=== PATIENT | male | born 1960 | race Two or more races ===

== ENCOUNTER 2020-07-22 13:31 | Emergency (ER) | payer MEDICAID, SELFPAY ==
[2020-07-22 13:49] VITALS: BP 150/80; BP 155/82; PULSE 61; PULSE 67; RESP 18; TEMP 36.7; O2SAT 96; O2SAT 98; BMI 32.1
--- NOTE | 2020-07-22 14:02 | XR_ITS ---
EXAMINATION: XR CHEST CLINICAL INFORMATION: Left chest pain, heartburn COMPARISON: Chest radiographs 03/02/2020, 01/12/2020, 01/18/2018 TECHNIQUE: Portable upright AP view of the chest was obtained. FINDINGS: Patient is slightly rotated to left. There are low lung volumes. There is no airspace consolidation or groundglass opacity. No pneumothorax or pleural reaction. Subpleural linear scarring left lateral base is similar to prior exams dating back to 2018. The heart is normal in size. The visualized hilar and mediastinal contours and bony structures are unremarkable. IMPRESSION: No acute intrathoracic disease.
--- NOTE | 2020-07-22 14:02 | ECG_ITS ---
Test Reason : CHEST PAIN Blood Pressure : / mmHG Vent. Rate : 054 BPM Atrial Rate : 054 BPM P-R Int : 150 ms QRS Dur : 088 ms QT Int : 424 ms P-R-T Axes : 017 -12 048 degrees QTc Int : 402 ms Sinus bradycardia Nonspecific T wave abnormality Abnormal ECG When compared with ECG of 02-MAR-2020 11:12, No significant change was found Referred By: Devaughn Khan Electronically Signed By:TRIPP BROOKE MD
--- NOTE | 2020-07-22 14:34 | ED_ITS ---
HPI - General Adult General Chief complaint: General Medical Stated complaint: LEFT ABD PAIN Time Seen by Provider: 07/22/20 14:02 Source: patient Mode of arrival: EMS History of Present Illness HPI narrative: Patient presents to the ED for acid burning sensation in epigastric area radiating to left chest. Patient states having these symptoms for the past 2 days. Patient states no fever, chills, dysuria, hematuria, nausea, or vomiting. Patient denies any shortness of breath, swelling of lower extremities, calf pain, chest pain on inspiration, headache, or dizziness. patient denies any recent long travel, recent surgery, active cancer, or estrogen hormonal use. Patient admits to pmh of GERD Onset (ago): day(s) (2 days) Associated symptoms: denies other symptoms Related Data Previous Rx's Medication Instructions Recorded aspirin 81 mg tablet,delayed 81 mg PO DAILY 90 Days #90 tab 07/09/20 release nifedipine 30 mg tablet,extended 30 mg PO DAILY 90 Days #90 tab 07/09/20 release 24 hr famotidine [Pepcid] 20 mg PO BID #20 tab 07/22/20 Allergies Allergy/AdvReac Type Severity Reaction Status Date / Time amlodipine [From [facility]] Allergy Unknown UNKNOWN Verified 07/22/20 13:48 no ibuprofen 2/2 renal Allergy Unknown Unknown Uncoded 07/22/20 13:48 functio Review of Systems Review of Systems: Yes all other systems are reviewed and are negative Constitutional: Constitutional: Reports as per HPI and Reports no additional constitutional complaints Eyes: Eyes: Reports as per HPI and Reports no additional eye complaints ENT: Reports system reviewed and no additional complaints, except as documented and Reports as per HPI Cardiovascular: Cardiovascular: Reports as per HPI, Reports no additional cardiovascular complaints, Denies chest pain, Denies chest pain at rest, Denies leg edema, Denies dyspnea, Denies dyspnea on exertion, Denies orthopnea and Denies paroxysmal nocturnal dyspnea Respiratory: Respiratory: Reports as per HPI, Reports no additional respiratory complaints, Denies dyspnea and Denies dyspnea on exertion Gastrointestinal: Gastrointestinal: Denies abdominal pain, Denies change in bowel habits, Denies tenesmus, Denies change in stool character, Denies coffee ground emesis, Denies constipation, Denies excessive flatus, Reports dyspepsia and Reports heartburn Genitourinary: Genitourinary: Reports no additional male genitourinary complaints, Denies dysuria, Denies flank pain, Denies urinary frequency and Denies urinary incontinence Neurologic: Reports system reviewed and no additional complaints, except as documented and Reports as per HPI Psychiatric: Psychiatric: Reports no additional psychiatric complaints and Reports as per HPI [facility] Past Medical History Medical History (Updated 07/22/20 @ 18:51 by MONIKA Cano) Anemia Aphagia Bronchitis CKD (chronic kidney disease) Constipation Diabetes GERD (gastroesophageal reflux disease) Hearing loss Hemiplegia HTN (hypertension) Hyperlipidemia Hyperlipidemia Hypertensive chronic kidney disease with stage 1 through stage 4 chronic kidney disease, or unspecified chronic kidney disease Preglaucoma Unsteady gait Vascular device, implant, or graft complication Vitamin D deficiency Vitamin D deficiency Social History Social History Alcohol intake: never Smoked in Last 30 Days: No Use of substances other than those prescribed or required for medical reasons: No Advance Directives: No Advance Directives Information Provided: Yes Physical Exam Vital Signs: Vital Signs: Vital Signs Temp Pulse Resp BP Pulse Ox 07/22/20 17:45 98.1 F 59 18 123/66 07/22/20 16:30 99.0 F 57 18 128/72 96 07/22/20 15:41 99.0 F 57 18 118/66 95 07/22/20 13:49 98.1 F 61 18 155/82 H 96 Body Mass Index 32.1 Const: General: cooperative, healthy appearing, comfortable, no acute distress and well developed Orientation/consciousness: oriented to person, oriented to place, oriented to time and patient oriented x3 HENMT: Head: Yes normal to inspection and Yes No palpable skull fracture present Eyes: General: appearance normal, both eyes and all related structures Neck: Neck: Yes normal visual inspection, Yes full ROM, Yes no lymphadenopathy , No positive Brudzinski's sign and No positive Kernig's sign Chest: Chest palpation & inspection: normal inspection of the chest and normal palpation of entire chest wall Resp: Effort & Inspection: normal respiratory effort and able to speak in complete sentences Cardio: Jugular venous distension: no JVD Heart sounds: S1 normal heart sound present and S2 normal heart sound present GI: Inspection: Yes normal to inspection and No abdominal wall ecchymosis Palpation (GI): not firm, nontender, no guarding, not rigid, no hernias, no masses and no pulsatile masses Percussion: Yes normal to percussion Auscultation: normal bowel sounds : General: No CVA tenderness and Yes no CVA tenderness Back/Spine/Pelvis: Back: no CVA tenderness, No CVA tenderness and No back tenderness Skin: General skin exam: no rashes or lesions noted Neuro: General: oriented to person, oriented to place, oriented to time, patient oriented x3, gait normal and CN's II-XI intact bilaterally Cranial nerves: Yes CN's II-XII intact bilaterally Extrem: General: Yes normal to inspection Psych: Appearance: grossly normal and well kempt Course Course Course Narrative: Due to patient stating heartburn/acid burn sensation in epigastric area radiating to chest. Patient will have EKG and cardiac evaluation. Patient also be given GI cocktail. Reevaluation(s) Reevaluation #1: Patient's burning sensation abdomen resolved after receiving GI cocktail. Patient's EKG at baseline. Patient has both troponin did not incr eased by 50%. Patient is safe for discharge. Diagnosis is GERD. Chest x-ray is normal. Patient denies any chest pain or shortness of breath presently. History and physical exam does not indicate PE. Patient does not have risk factors for PE. Patient abdomen re-examined and is non-tender and benign. Patient passed PO Challenge. Lipase 89 with non-tender abdomen makes pancreatitis unlikely Time: 18:40 Medical Decision Making MDM Narrative Medical decision making narrative: GERD as cause of abdominal pain. Patient presently not having pneumonia or myocardial infarction. Lab Data Result diagrams: 07/22/20 14:45 07/22/20 14:45 Labs: Lab Results 07/22/20 07/22/20 07/22/20 Range/Units 14:45 14:45 14:45 WBC 9.9 (4.8-10.8) X10*3/uL RBC 4.04 L (4.60-5.80) X10*6/uL Hgb 12.0 L (14.0-18.0) g/dl Hct 36.1 L (42-52) % MCV 89.4 (80-98) fL MCH 29.7 (27.0-33.0) pg MCHC 33.2 (31.0-36.0) g/dl RDW 11.9 (11.0-16.0) % Plt Count 224 (160-400) X10*3/uL MPV 11.0 (9.4-12.4) fL Immature Gran % (Auto) 0.4 (0.0-0.4) % Neut % (Auto) 55.0 (45-73) % Lymph % (Auto) 31.6 (20-40) % [place] % (Auto) 9.0 (2-11) % Eos % (Auto) 3.5 (0-4) % Baso % (Auto) 0.5 (0-2) % Lymph # (Auto) 3.1 (1.2-4.9) X10*3/uL [place] # (Auto) 0.9 (0.1-1.2) X10*3/uL Eos # (Auto) 0.4 (0.0-0.4) X10*3/uL Baso # (Auto) 0.1 (0.0-0.2) X10*3/uL Abs Immat Gran (auto) 0.04 H (0.00-0.03) X10*3/uL Absolute Neuts (auto) 5.5 (2.0-8.3) X10*3/uL Absolute Nucleated RBC 0.000 (0.0-0.012) X10*3/uL Nucleated RBC % (auto) 0.0 (0.0-0.2) /100WBC PT 11.6 (10.8-13.0) SEC INR 1.0 (0.9-1.1) APTT 35.4 (24.1-38.0) SEC Sodium 139 (135-145) mmol/L Potassium 4.9 (3.3-5.1) mmol/l Chloride 107 (96-108) mmol/L Carbon Dioxide 21 L (22-29) mmol/L Anion Gap 16 (12-20) BUN 43 H (9-16) mg/dL Creatinine 2.14 H (0.5-1.4) mg/dL Estim Creat Clear Calc 40.0 Estimated GFR 32 Random Glucose 132 H (60-115) mg/dL Calcium 9.8 (8.4-10.2) mg/dL Total Bilirubin 0.2 (0.0-1.0) mg/dL AST 11 (5-37) U/L ALT 10 (0-40) U/L Alkaline Phosphatase 76 (39-117) U/L Troponin I High Sens (<3.5-35.0) ng/L Total Protein 7.9 (6.5-8.0) g/dL Albumin 4.5 (3.5-5.0) g/dL Lipase 81 H (8-78) U/L 07/22/20 07/22/20 Range/Units 14:45 18:01 WBC (4.8-10.8) X10*3/uL RBC (4.60-5.80) X10*6/uL Hgb (14.0-18.0) g/dl Hct (42-52) % MCV (80-98) fL MCH (27.0-33.0) pg MCHC (31.0-36.0) g/dl RDW (11.0-16.0) % Plt Count (160-400) X10*3/uL MPV (9.4-12.4) fL Immature Gran % (Auto) (0.0-0.4) % Neut % (Auto) (45-73) % Lymph % (Auto) (20-40) % [place] % (Auto) (2-11) % Eos % (Auto) (0-4) % Baso % (Auto) (0-2) % Lymph # (Auto) (1.2-4.9) X10*3/uL [place] # (Auto) (0.1-1.2) X10*3/uL Eos # (Auto) (0.0-0.4) X10*3/uL Baso # (Auto) (0.0-0.2) X10*3/uL Abs Immat Gran (auto) (0.00-0.03) X10*3/uL Absolute Neuts (auto) (2.0-8.3) X10*3/uL Absolute Nucleated RBC (0.0-0.012) X10*3/uL Nucleated RBC % (auto) (0.0-0.2) /100WBC PT (10.8-13.0) SEC INR (0.9-1.1) APTT (24.1-38.0) SEC Sodium (135-145) mmol/L Potassium (3.3-5.1) mmol/l Chloride (96-108) mmol/L Carbon Dioxide (22-29) mmol/L Anion Gap (12-20) BUN (9-16) mg/dL Creatinine (0.5-1.4) mg/dL Estim Creat Clear Calc Estimated GFR Random Glucose (60-115) mg/dL Calcium (8.4-10.2) mg/dL Total Bilirubin (0.0-1.0) mg/dL AST (5-37) U/L ALT (0-40) U/L Alkaline Phosphatase (39-117) U/L Troponin I High Sens 5.5 6.8 (<3.5-35.0) ng/L Total Protein (6.5-8.0) g/dL Albumin (3.5-5.0) g/dL Lipase (8-78) U/L ECG Data Interpretation: sinus bradycardia, nonspecific T-wave abnormality, ventricular rate 54, TN interval 150 Discharge Plan Discharge Clinical Impression: Chronic GERD Patient Disposition: Home, Self-Care Instructions: Gastroesophageal Reflux Disease (ED) Additional Instructions: Return to the ED for any chest pain, shortness of breath, vomiting, severe abdominal pain, chest pain on inspiration, swelling of lower extremities, calf pain, fever, chills, flank pain, dysuria, or hematuria. Follow-up with your PCP as soon as possible Prescriptions: New famotidine [Pepcid] 20 mg tablet 20 mg PO BID Qty: 20 RF: 0 No Action aspirin [Adult Low Dose Aspirin] 81 mg tablet,delayed release (DR/EC) 81 mg PO DAILY 90 Days Qty: 90 RF: 1 nifedipine 30 mg tablet extended release 24hr 30 mg PO DAILY 90 Days Qty: 90 RF: 1 Interventions: ED Discharge Assessment Last Done: 07/22/20 19:50 Print Language: Paraguayan
[2020-07-22 14:50] LABS: MANUAL DIFF FLAG NO
[2020-07-22] MEDS: Famotidine/PF 20 MG/2 ML VIAL IVPUSH (14:50)
[2020-07-22] MEDS: Magnesium Hydrox/Alum Hydrox 30 ML ORAL.SUSP PO ×2 (14:50)
[2020-07-22] MEDS: Lidocaine HCl Viscous 2 % 15 ML SOLUTION MUCOUS MEM (14:50)
[2020-07-22 14:56] LABS: Basophils Absolute Auto 0.1 X10*3/uL (0.0-0.2); Basophils Percent Auto 0.5 % (0-2); Eosinophils Absolute Auto 0.4 X10*3/uL (0.0-0.4); Eosinophils Percent Auto 3.5 % (0-4); Hematocrit 36.1 % (42-52); Imm Gran Abs Auto 0.04 X10*3/uL (0.00-0.03); Imm Gran Pct Auto 0.4 % (0.0-0.4); Lymphocytes Absolute Auto 3.1 X10*3/uL (1.2-4.9); Lymphocytes Percent Auto 31.6 % (20-40); Mean Corpuscular HGB Conc 33.2 g/dl (31.0-36.0); Mean Corpuscular Hemoglobin 29.7 pg (27.0-33.0); Mean Corpuscular Volume 89.4 fL (80-98); Monocytes Absolute Auto 0.9 X10*3/uL (0.1-1.2); Neutrophils Absolute Auto 5.5 X10*3/uL (2.0-8.3); Platelet Count 224 X10*3/uL (160-400); Red Blood Count 4.04 X10*6/uL (4.60-5.80); Red Cell Distribution Width 11.9 % (11.0-16.0); White Blood Count 9.9 X10*3/uL (4.8-10.8)
[2020-07-22 14:57] LABS: Prothrombin Time 11.6 SEC (10.8-13.0)
[2020-07-22 15:00] LABS: Partial Thromboplastin Time 35.4 SEC (24.1-38.0)
--- NOTE | 2020-07-22 15:04 | PC.NURSE ---
iv inserted, labs drawn, pt medicated per orde, pt sinus nilsa on child care development specialist, vss, pt ekg performed, will continue to monitor.
[2020-07-22 15:27] LABS: Alanine Aminotransferase 10 U/L (0-40); Albumin Level 4.5 g/dL (3.5-5.0); Alkaline Phosphatase 76 U/L (39-117); Anion Gap 16 (12-20); Aspartate Amino Transferase 11 U/L (5-37); Bilirubin Total 0.2 mg/dL (0.0-1.0); Blood Urea Nitrogen 43 mg/dL (9-16); Calcium 9.8 mg/dL (8.4-10.2); Carbon Dioxide 21 mmol/L (22-29); Chloride 107 mmol/L (96-108); Estimated Glomerular Filt Rate 32; Glucose Random 132 mg/dL (60-115); Potassium 4.9 mmol/l (3.3-5.1); Sodium 139 mmol/L (135-145); Total Protein 7.9 g/dL (6.5-8.0)
[2020-07-22 15:30] LABS: Troponin-I High Sensitivity 5.5 ng/L (<3.5-35.0)
[2020-07-22 15:41] VITALS: BP 118/66; PULSE 57; RESP 18; TEMP 37.2; O2SAT 95
--- NOTE | 2020-07-22 15:44 | PC.NURSE ---
patient alert to baseline, vss, registered nurse cardiac sinus nilsa 50s, patient currently watching tv, pt states he still has pain but its better-just a little pain- 01/11, will continue to monitor.
[2020-07-22 16:30] VITALS: BP 128/72; PULSE 57; RESP 18; TEMP 37.2; O2SAT 96
--- NOTE | 2020-07-22 16:30 | PC.NURSE ---
patient ombudsperson head of service [facility] patient is at is named jhonny her contact number is [phone]
[2020-07-22 17:45] VITALS: BP 123/66; PULSE 59; RESP 18; TEMP 36.7
--- NOTE | 2020-07-22 17:46 | PC.NURSE ---
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
[2020-07-22 18:44] LABS: Troponin-I High Sensitivity 6.8 ng/L (<3.5-35.0)
--- NOTE | 2020-07-22 19:25 | PC.NURSE ---
Spoke with Zamzam [phone], for update.
[2020-07-22 19:44] LABS: Lipase 81 U/L (8-78)
== END 2020-07-22 21:07 | disposition home or self-care (01) ==
PROVIDERS: Physician Assistant; Emergency Provider Emergency Medicine
DX: K21.9 Gastro-esophageal reflux disease without esophagitis (principal); R07.89 Other chest pain; I10 Essential (primary) hypertension; Z79.899 Other long term (current) drug therapy
CPT/HCPCS: 36415; 71045; 80053; 83690; 84484; 85025; 85610; 85730; 93005; 96374; 99284

== ENCOUNTER 2020-07-28 12:26 | Emergency (ER) | payer MEDICAID, SELFPAY ==
--- NOTE | 2020-07-28 | ECG_ITS ---
Test Reason : CHEST PAIN Blood Pressure : / mmHG Vent. Rate : 060 BPM Atrial Rate : 060 BPM P-R Int : 150 ms QRS Dur : 086 ms QT Int : 406 ms P-R-T Axes : 051 -17 035 degrees QTc Int : 406 ms Normal sinus rhythm Normal ECG No previous ECGs available Referred By: Generic ED Physician Electronically Signed By:TRIPP BROOKE MD
[2020-07-28 12:37] VITALS: BP 168/80; PULSE 70; RESP 16; TEMP 36.6; O2SAT 99; BMI 33.0
--- NOTE | 2020-07-28 12:42 | ED.CHESTPAIN ---
HPI - Chest Pain General Chief Complaint: Chest Pain Stated Complaint: CP X'S 2 HOURS FROM [facility] HOME Time Seen by Provider: 07/28/20 13:58 Related Data Home Medications Medication Instructions Recorded Confirmed acetaminophen 325 mg tablet 325 mg PO Q6H PRN tab 07/24/20 ascorbic acid (vitamin C) 500 mg mg PO BID cap 07/24/20 capsule dulaglutide 1.5 mg/0.5 mL 1.5 mg SUBCUT QWEEK 07/24/20 subcutaneous pen injector empagliflozin 10 mg tablet 10 mg PO DAILY 07/24/20 ergocalciferol (vitamin D2) 1,250 1,250 mcg PO .monthly cap 07/24/20 mcg (50,000 unit) capsule ferrous sulfate 325 mg (65 mg 325 mg PO DAILY 07/24/20 iron) tablet hydralazine 50 mg tablet 50 mg PO TID 07/24/20 hydrocortisone valerate 0.2 % 1 applic TOPICAL BID PRN 07/24/20 topical cream insulin lispro 100 unit/mL 2 unit SUBCUT .per sliding scale 07/24/20 subcutaneous pen ml lactulose 10 gram/15 mL oral 10 g PO DAILY 07/24/20 solution lancets 28 gauge #100 ea 07/24/20 lorazepam 0.5 mg tablet 0.5 mg PO BID 07/24/20 lorazepam 0.5 mg tablet 0.5 mg PO DAILY PRN 07/24/20 losartan 50 mg tablet 50 mg PO DAILY 07/24/20 magnesium oxide 400 mg (241.3 mg 400 mg PO DAILY PRN 07/24/20 magnesium) tablet meclizine 25 mg tablet 25 mg PO TID PRN 07/24/20 metoprolol succinate 25 mg 25 mg PO DAILY 07/24/20 tablet,extended release 24 hr polyethylene glycol 3350 17 17 g PO DAILY 07/24/20 gram/dose oral powder risperidone 0.5 mg tablet 0.5 mg PO BID 07/24/20 sennosides 8.6 mg tablet 8.6 mg PO BID 07/24/20 simvastatin 40 mg tablet 40 mg PO BEDTIME 07/24/20 tamsulosin 0.4 mg capsule 0.4 mg PO BEDTIME 07/24/20 trazodone 50 mg tablet 50 mg PO DAILY 07/24/20 trolamine salicylate 10 % topical 1 applic TOPICAL TID 07/24/20 cream trolamine salicylate-aloe vera 10 1 applic TOPICAL TID-QID PRN 07/24/20 % topical cream ursodiol 300 mg capsule 300 mg PO BID 07/24/20 Previous Rx's Medication Instructions Recorded aspirin 81 mg tablet,delayed 81 mg PO DAILY 90 Days #90 tab 07/09/20 release nifedipine 30 mg tablet,extended 30 mg PO DAILY 90 Days #90 tab 07/09/20 release 24 hr famotidine 20 mg tablet 20 mg PO BID PRN 90 Days #90 tab 07/24/20 Allergies Allergy/AdvReac Type Severity Reaction Status Date / Time amlodipine [From [facility]] Allergy Severe due to Verified 07/28/20 12:42 poor renal function no ibuprofen 2/2 renal Allergy Severe due to Uncoded 07/28/20 12:42 functio poor renal function ON LICENSE OF [facility] Past Medical History Medical History (Updated 07/27/20 @ 17:32 by FRANCISCO Crawford-C) Anemia Aphagia Bronchitis Chronic kidney disease, stage 3 CKD (chronic kidney disease) Constipation Diabetes GERD (gastroesophageal reflux disease) Hearing loss Hemiplegia HTN (hypertension) Hyperlipidemia Hyperlipidemia Hypertensive chronic kidney disease with stage 1 through stage 4 chronic kidney disease, or unspecified chronic kidney disease Preglaucoma Type 2 diabetes mellitus with chronic kidney disease Unsteady gait Vascular device, implant, or graft complication Vitamin D deficiency Vitamin D deficiency Social History Social History Alcohol intake: never Smoking Status: Never smoker Use of substances other than those prescribed or required for medical reasons: No Advance Directives: No Advance Directives Information Provided: No Physical Exam Vital Signs: Vital Signs: Vital Signs Temp Pulse Resp BP Pulse Ox 07/28/20 12:47 97.8 F 54 20 165/91 H 97 07/28/20 12:37 97.8 F 70 16 168/80 H 99 Body Mass Index 33.0 MDM - Chest Pain Lab Data Result diagrams: 07/28/20 12:57 07/28/20 12:57 Labs: Lab Results 07/28/20 07/28/20 07/28/20 Range/Units 12:57 12:57 12:57 WBC 9.1 (4.8-10.8) X10*3/uL RBC 4.36 L (4.60-5.80) X10*6/uL Hgb 12.8 L (14.0-18.0) g/dl Hct 39.4 L (42-52) % MCV 90.4 (80-98) fL MCH 29.4 (27.0-33.0) pg MCHC 32.5 (31.0-36.0) g/dl RDW 11.6 (11.0-16.0) % Plt Count 236 (160-400) X10*3/uL MPV 10.8 (9.4-12.4) fL Immature Gran % (Auto) 0.4 (0.0-0.4) % Neut % (Auto) 56.4 (45-73) % Lymph % (Auto) 31.2 (20-40) % [place] % (Auto) 8.0 (2-11) % Eos % (Auto) 3.6 (0-4) % Baso % (Auto) 0.4 (0-2) % Lymph # (Auto) 2.8 (1.2-4.9) X10*3/uL [place] # (Auto) 0.7 (0.1-1.2) X10*3/uL Eos # (Auto) 0.3 (0.0-0.4) X10*3/uL Baso # (Auto) 0.0 (0.0-0.2) X10*3/uL Abs Immat Gran (auto) 0.04 H (0.00-0.03) X10*3/uL Absolute Neuts (auto) 5.1 (2.0-8.3) X10*3/uL Absolute Nucleated RBC 0.000 (0.0-0.012) X10*3/uL Nucleated RBC % (auto) 0.0 (0.0-0.2) /100WBC PT 11.0 (10.8-13.0) SEC INR 0.9 (0.9-1.1) APTT 36.0 (24.1-38.0) SEC Sodium 139 (135-145) mmol/L Potassium 5.3 H (3.3-5.1) mmol/l Chloride 105 (96-108) mmol/L Carbon Dioxide 23 (22-29) mmol/L Anion Gap 16 (12-20) BUN 42 H (9-16) mg/dL Creatinine 2.13 H (0.5-1.4) mg/dL Estim Creat Clear Calc 40.8 Estimated GFR 32 Random Glucose 245 H D (60-115) mg/dL Calcium 9.5 (8.4-10.2) mg/dL Total Bilirubin 0.3 (0.0-1.0) mg/dL AST 12 (5-37) U/L ALT 11 (0-40) U/L Alkaline Phosphatase 75 (39-117) U/L Troponin I High Sens (<3.5-35.0) ng/L Total Protein 8.1 H (6.5-8.0) g/dL Albumin 4.6 (3.5-5.0) g/dL Lipase 77 (8-78) U/L // Range/Units 12:57 WBC (4.8-10.8) X10*3/uL RBC (4.60-5.80) X10*6/uL Hgb (14.0-18.0) g/dl Hct (42-52) % MCV (80-98) fL MCH (27.0-33.0) pg MCHC (31.0-36.0) g/dl RDW (11.0-16.0) % Plt Count (160-400) X10*3/uL MPV (9.4-12.4) fL Immature Gran % (Auto) (0.0-0.4) % Neut % (Auto) (45-73) % Lymph % (Auto) (20-40) % [place] % (Auto) (2-11) % Eos % (Auto) (0-4) % Baso % (Auto) (0-2) % Lymph # (Auto) (1.2-4.9) X10*3/uL [place] # (Auto) (0.1-1.2) X10*3/uL Eos # (Auto) (0.0-0.4) X10*3/uL Baso # (Auto) (0.0-0.2) X10*3/uL Abs Immat Gran (auto) (0.00-0.03) X10*3/uL Absolute Neuts (auto) (2.0-8.3) X10*3/uL Absolute Nucleated RBC (0.0-0.012) X10*3/uL Nucleated RBC % (auto) (0.0-0.2) /100WBC PT (10.8-13.0) SEC INR (0.9-1.1) APTT (24.1-38.0) SEC Sodium (135-145) mmol/L Potassium (3.3-5.1) mmol/l Chloride (96-108) mmol/L Carbon Dioxide (22-29) mmol/L Anion Gap (12-20) BUN (9-16) mg/dL Creatinine (0.5-1.4) mg/dL Estim Creat Clear Calc Estimated GFR Random Glucose (60-115) mg/dL Calcium (8.4-10.2) mg/dL Total Bilirubin (0.0-1.0) mg/dL AST (5-37) U/L ALT (0-40) U/L Alkaline Phosphatase (39-117) U/L Troponin I High Sens 6.7 (<3.5-35.0) ng/L Total Protein (6.5-8.0) g/dL Albumin (3.5-5.0) g/dL Lipase (8-78) U/L Discharge Plan Discharge Prescriptions: No Action aspirin [Adult Low Dose Aspirin] 81 mg tablet,delayed release (DR/EC) 81 mg PO DAILY 90 Days Qty: 90 RF: 1 nifedipine 30 mg tablet extended release 24hr 30 mg PO DAILY 90 Days Qty: 90 RF: 1 risperidone [Risperdal] 0.5 mg tablet 0.5 mg PO BID RF: 0 trazodone 50 mg tablet 50 mg PO DAILY RF: 0 lactulose [Enulose] 10 gram/15 mL solution 10 g PO DAILY RF: 0 acetaminophen [Tylenol] 325 mg tablet 325 mg PO Q6H PRN (Reason: temp, headache or general discomfort) RF: 0 polyethylene glycol 3350 [Miralax] 17 gram/dose powder 17 g PO DAILY RF: 0 trolamine salicylate [Asper-Flex] 10 % cream 1 applic topical TID RF: 0 hydrocortisone valerate 0.2 % cream 1 applic topical BID PRNRF: 0 ursodiol 300 mg capsule 300 mg PO BID RF: 0 ascorbic acid (vitamin C) 500 mg capsule PO BID RF: 0 lorazepam [Ativan] 0.5 mg tablet 0.5 mg PO BID RF: 0 Jardiance 10 mg tablet 10 mg PO DAILY RF: 0 meclizine 25 mg tablet 25 mg PO TID PRN (Reason: dizziness) RF: 0 tamsulosin 0.4 mg capsule 0.4 mg PO BEDTIME RF: 0 losartan 50 mg tablet 50 mg PO DAILY RF: 0 Trulicity 1.5 mg/0.5 mL pen injector 1.5 mg subcut QWEEK RF: 0 insulin lispro [Humalog KwikPen Insulin] 100 unit/mL insulin pen 2 unit subcut .per sliding scale RF: 0 simvastatin 40 mg tablet 40 mg PO BEDTIME RF: 0 hydralazine 50 mg tablet 50 mg PO TID RF: 0 ferrous sulfate [Trent-Time] 325 mg (65 mg iron) tablet 325 mg PO DAILY RF: 0 ergocalciferol (vitamin D2) 1,250 mcg (50,000 unit) capsule 1,250 mcg PO .monthly RF: 0 sennosides [Evac-U-Gen (sennosides)] 8.6 mg tablet 8.6 mg PO BID RF: 0 magnesium oxide [MagOx] 400 mg (241.3 mg magnesium) tablet 400 mg PO DAILY PRN (Reason: constipation) RF: 0 metoprolol succinate 25 mg tablet extended release 24 hr 25 mg PO DAILY RF: 0 Aspercreme with Aloe 10 % cream 1 applic topical TID-QID PRNRF: 0 lorazepam [Ativan] 0.5 mg tablet 0.5 mg PO DAILY PRNRF: 0 (DME) lancets [FreeStyle Lancets] 28 gauge misc See Rx Instructions .ROUTE .MEDSUPPLY Qty: 100 RF: 0 famotidine [Pepcid] 20 mg tablet 20 mg PO BID PRN (Reason: acid reflux) 90 Days Qty: 90 RF: 1
[2020-07-28 12:47] VITALS: BP 165/91; PULSE 54; RESP 20; TEMP 36.6; O2SAT 97
[2020-07-28 13:03] LABS: MANUAL DIFF FLAG NO
[2020-07-28 13:05] LABS: Basophils Percent Auto 0.4 % (0-2); Eosinophils Absolute Auto 0.3 X10*3/uL (0.0-0.4); Eosinophils Percent Auto 3.6 % (0-4); Hematocrit 39.4 % (42-52); Hemoglobin 12.8 g/dl (14.0-18.0); Imm Gran Abs Auto 0.04 X10*3/uL (0.00-0.03); Imm Gran Pct Auto 0.4 % (0.0-0.4); Lymphocytes Absolute Auto 2.8 X10*3/uL (1.2-4.9); Lymphocytes Percent Auto 31.2 % (20-40); Mean Corpuscular HGB Conc 32.5 g/dl (31.0-36.0); Mean Corpuscular Hemoglobin 29.4 pg (27.0-33.0); Mean Corpuscular Volume 90.4 fL (80-98); Mean Platelet Volume 10.8 fL (9.4-12.4); Monocytes Absolute Auto 0.7 X10*3/uL (0.1-1.2); Neutrophils Absolute Auto 5.1 X10*3/uL (2.0-8.3); Neutrophils Percent Auto 56.4 % (45-73); Platelet Count 236 X10*3/uL (160-400); Red Blood Count 4.36 X10*6/uL (4.60-5.80); Red Cell Distribution Width 11.6 % (11.0-16.0); White Blood Count 9.1 X10*3/uL (4.8-10.8)
[2020-07-28 13:11] LABS: INTERNATIONAL NORM RATIO 0.9 (0.9-1.1)
[2020-07-28] MEDS: 0.9 % Sodium Chloride 1,000 ML 999 ML IVCONT (13:13)
[2020-07-28] MEDS: Lidocaine HCl Viscous 2 % 15 ML SOLUTION MUCOUS MEM (13:14)
[2020-07-28] MEDS: Famotidine/PF 20 MG/2 ML VIAL IVPUSH (13:14)
[2020-07-28] MEDS: Magnesium Hydrox/Alum Hydrox 30 ML ORAL.SUSP PO (13:14)
--- NOTE | 2020-07-28 13:16 | PC.NURSE ---
PT A&OX3, SPEECH AT BASELINE. HEMIPLEGIC. SEEN HERE RECENTLY FOR SIMILAR COMPLAINTS. NO SOB. SKIN COLOUR APPROPRIATE FOR ETHNICITY, WARM, DRY. SINUS ANGELA ON MONITOR. PAIN SUBSTERNAL, BURNING, INTERMITTENT. MEDICATED PER EMR. AWARE OF PLAN FOR CARE.
--- NOTE | 2020-07-28 13:32 | PC.NURSE ---
pt reports pain relief at this time. restnig comfortably in stretcher.
[2020-07-28 13:52] LABS: Alanine Aminotransferase 11 U/L (0-40); Albumin Level 4.6 g/dL (3.5-5.0); Alkaline Phosphatase 75 U/L (39-117); Anion Gap 16 (12-20); Aspartate Amino Transferase 12 U/L (5-37); Bilirubin Total 0.3 mg/dL (0.0-1.0); Blood Urea Nitrogen 42 mg/dL (9-16); Calcium 9.5 mg/dL (8.4-10.2); Carbon Dioxide 23 mmol/L (22-29); Chloride 105 mmol/L (96-108); Creatinine Clr Calc Pharmacy 40.8; Estimated Glomerular Filt Rate 32; Glucose Random 245 mg/dL (60-115); Lipase 77 U/L (8-78); Potassium 5.3 mmol/l (3.3-5.1); Sodium 139 mmol/L (135-145); Total Protein 8.1 g/dL (6.5-8.0)
[2020-07-28 13:54] LABS: Troponin-I High Sensitivity 6.7 ng/L (<3.5-35.0)
--- NOTE | 2020-07-28 13:54 | PC.NURSE ---
BROADLOOM [employer]ER JUWAN [phone]
--- NOTE | 2020-07-28 13:58 | CT_ITS ---
EXAMINATION: CT ABDOMEN AND PELVIS WITHOUT CONTRAST CLINICAL INFORMATION: Epigastric pain COMPARISON: Contrast-enhanced CT scan of the abdomen and pelvis dated 03/15/2019 TECHNIQUE: Multidetector volumetric imaging was performed from the superior aspect of the liver through the pubic symphysis. Sagittal and coronal reformatted images were obtained on the technologist's workstation. This CT examination was performed using dose optimization techniques as appropriate, variously including the following: *Automated exposure control *Adjustment of mA and/or kV according to patient size (this includes techniques or standardized protocols for targeted exams where dose is matched to indication/reason for exam; i.e. extremities or head) *Use of iterative reconstruction technique DLP: 691 mGy-cm FINDINGS: LUNG BASES: The visualized lung bases show no acute finding. LIVER, GALLBLADDER, AND BILIARY TREE: The liver is normal in size, shape, and attenuation. A tiny punctate calcified granuloma noted in the left lobe of the liver. No focal worrisome hepatic lesion or biliary ductal dilatation is present. The gallbladder contains layering small gallstones but is otherwise unremarkable with no evidence of gallbladder wall thickening or obvious pericholecystic inflammatory changes. PANCREAS: Unremarkable. SPLEEN: Unremarkable. ADRENAL GLANDS: A tiny 1 cm water density nodule in the left adrenal gland is unchanged and consistent with tiny benign adenoma. KIDNEYS AND URETERS: The kidneys are normal in size, shape, and attenuation. No hydronephrosis, hydroureter, or calculi seen. Some nonspecific perinephric stranding is present bilaterally. BLADDER: Unremarkable. GASTROINTESTINAL TRACT: The small and large bowel are unremarkable. The appendix is unremarkable. ABDOMINAL WALL: No significant hernia is appreciated. Large venous collaterals are present in the abdominal wall suggesting some degree of obstruction from the IVC filter. There has been a prior hernia ventral repair in the upper abdomen. LYMPH NODES: No retroperitoneal lymphadenopathy. VASCULAR: An IVC filter is in place. The iliac veins are atretic and contain calcification. Large venous collaterals are seen in the anterior abdominal/pelvic wall arising from the inferior epigastric veins indicative of obstruction presumably secondary to the pelvic venous disease. PELVIC VISCERA: There is mild prostatic enlargement with the prostate measuring 5.4 x 4.0 x 3.7 cm. Seminal vesicles appear normal. OSSEOUS STRUCTURES: Degenerative changes seen in the lower thoracic spine. No bony destructive lesions are seen. CT/CT abdomen pelvis wo con IMPRESSION: 1. Cholelithiasis without evidence of cholecystitis. 2. 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 3. Mild BPH. 4. Tiny benign left adrenal adenoma. 5. Small hepatic granuloma and degenerative changes in the thoracic spine.
--- NOTE | 2020-07-28 14:37 | PC.NURSE ---
PT TO CT SCAN
--- NOTE | 2020-07-28 14:38 | ED_ITS ---
HPI - Abdominal Pain General Chief Complaint: Chest Pain Stated Complaint: CP X'S 2 HOURS FROM [facility] HOME Time Seen by Provider: 07/28/20 13:58 Source: patient Mode of arrival: EMS Limitations: no limitations History of Present Illness HPI narrative: patient presents to ED for epigastric abdominal pain that began 2 hours ago. Patient states no chest pain, shortness of breath, nausea, vomiting, flank pain, dysuria, hematuria, fever, or chills. Patient describes epigastric burning sensation as burning sensation. Patient states no swelling of lower extremity. Patient states no calf pain. patient states no shortness of breath on inspiration MD elicited complaint: abdominal pain Related Data Home Medications Medication Instructions Recorded Confirmed acetaminophen 325 mg tablet 325 mg PO Q6H PRN tab 07/24/20 ascorbic acid (vitamin C) 500 mg mg PO BID cap 07/24/20 capsule dulaglutide 1.5 mg/0.5 mL 1.5 mg SUBCUT QWEEK 07/24/20 subcutaneous pen injector empagliflozin 10 mg tablet 10 mg PO DAILY 07/24/20 ergocalciferol (vitamin D2) 1,250 1,250 mcg PO .monthly cap 07/24/20 mcg (50,000 unit) capsule ferrous sulfate 325 mg (65 mg 325 mg PO DAILY 07/24/20 iron) tablet hydralazine 50 mg tablet 50 mg PO TID 07/24/20 hydrocortisone valerate 0.2 % 1 applic TOPICAL BID PRN 07/24/20 topical cream insulin lispro 100 unit/mL 2 unit SUBCUT .per sliding scale 07/24/20 subcutaneous pen ml lactulose 10 gram/15 mL oral 10 g PO DAILY 07/24/20 solution lancets 28 gauge #100 ea 07/24/20 lorazepam 0.5 mg tablet 0.5 mg PO BID 07/24/20 lorazepam 0.5 mg tablet 0.5 mg PO DAILY PRN 07/24/20 losartan 50 mg tablet 50 mg PO DAILY 07/24/20 magnesium oxide 400 mg (241.3 mg 400 mg PO DAILY PRN 07/24/20 magnesium) tablet meclizine 25 mg tablet 25 mg PO TID PRN 07/24/20 metoprolol succinate 25 mg 25 mg PO DAILY 07/24/20 tablet,extended release 24 hr polyethylene glycol 3350 17 17 g PO DAILY 07/24/20 gram/dose oral powder risperidone 0.5 mg tablet 0.5 mg PO BID 07/24/20 sennosides 8.6 mg tablet 8.6 mg PO BID 07/24/20 simvastatin 40 mg tablet 40 mg PO BEDTIME 07/24/20 tamsulosin 0.4 mg capsule 0.4 mg PO BEDTIME 07/24/20 trazodone 50 mg tablet 50 mg PO DAILY 07/24/20 trolamine salicylate 10 % topical 1 applic TOPICAL TID 07/24/20 cream trolamine salicylate-aloe vera 10 1 applic TOPICAL TID-QID PRN 07/24/20 % topical cream ursodiol 300 mg capsule 300 mg PO BID 07/24/20 Previous Rx's Medication Instructions Recorded aspirin 81 mg tablet,delayed 81 mg PO DAILY 90 Days #90 tab 07/09/20 release nifedipine 30 mg tablet,extended 30 mg PO DAILY 90 Days #90 tab 07/09/20 release 24 hr famotidine 20 mg tablet 20 mg PO BID PRN 90 Days #90 tab 07/24/20 oxycodone-acetaminophen 1 tab PO Q6H PRN #12 tab 07/28/20 Allergies Allergy/AdvReac Type Severity Reaction Status Date / Time amlodipine [From [facility]] Allergy Severe due to Verified 07/28/20 12:42 poor renal function no ibuprofen 2/2 renal Allergy Severe due to Uncoded 07/28/20 12:42 functio poor renal function Review of Systems Review of Systems Yes all other systems are reviewed and are negative Constitutional: Reports as per HPI and Reports no additional constitutional complaints Eyes: Reports as per HPI, Reports no additional eye complaints, Denies blind spots, Denies blurry vision and Denies itchy eyes Reports system reviewed and no additional complaints, except as documented, Reports as per HPI and Denies dysphagia Cardiovascular: Reports as per HPI, Reports no additional cardiovascular complaints, Denies Abdominal Cramping after Meds, Denies Abdominal Distension, Denies painful fingertips, Denies chest pain, Denies chest pain at rest, Denies syncope, Denies rapid heart rate, Denies irregular heart rhythm, Denies claudication, Denies radiating jaw, neck or arm pain, Denies dyspnea, Denies dyspnea on exertion and Denies paroxysmal nocturnal dyspnea Respiratory: Reports as per HPI, Reports no additional respiratory complaints, Reports no additional respiratory complaints, Denies change in phlegm color, Denies chest congestion, Denies hemoptysis, Denies excessive phlegm production, Denies pain on inspiration, Denies pain with cough, Denies dyspnea and Denies dyspnea on exertion Gastrointestinal: Reports as per HPI, Reports no additional gastrointestinal complaints, Reports abdominal pain, Denies belching, Denies melena, Denies bloating, Denies hematochezia, Denies GI cramping, Denies dysphagia, Reports dyspepsia and Reports heartburn Genitourinary: Reports no additional male genitourinary complaints, Reports as per HPI, Denies hematuria, Denies oliguria, Denies difficulty with ejaculations, Denies painful ejaculations, Denies penile discharge, Denies scrotal swelling, Denies urinary hesitancy, Denies urinary incontinence and Denies urinary urgency Denies syncope Allergic/Immunologic: Denies itchy eyes Physical Exam Vital Signs: Vital Signs: Vital Signs Temp Pulse Resp BP Pulse Ox 07/28/20 18:28 77 19 132/63 99 07/28/20 15:50 56 13 143/73 H 95 07/28/20 12:47 97.8 F 54 20 165/91 H 97 07/28/20 12:37 97.8 F 70 16 168/80 H 99 Body Mass Index 33.0 Const: General: cooperative, healthy appearing, comfortable, no acute distress, well developed, alert and awake Orientation/consciousness: oriented to person, oriented to place, oriented to time and patient oriented x3 HENMT: Head: Yes normal to inspection Eyes: General: appearance normal, both eyes and all related structures Visual Justin: normal visual justin by confrontation Neck: Neck: Yes normal visual inspection, Yes full ROM, Yes no lymphade nopathy, Yes no meningeal signs, No positive Brudzinski's sign and No positive Kernig's sign Chest: Chest palpation & inspection: normal inspection of the chest and normal palpation of entire chest wall Resp: Effort & Inspection: normal respiratory effort, able to speak in complete sentences, normal respiratory pattern, no audible wheezes and no cough Auscultation: clear to auscultation bilaterally, no crackles, no rales, no rhonchi and no wheezes Percussion: percussion normal Cardio: Jugular venous distension: no JVD Heart sounds: S1 normal heart sound present and S2 normal heart sound present GI: Inspection: Yes normal to inspection and No abdominal wall ecchymosis Palpation (GI): Soft to palpation, not firm, Tenderness to palpation present (GI ) in the epigastrum, no guarding and not rigid : General: No CVA tenderness and Yes no CVA tenderness Back/Spine/Pelvis: Back: no CVA tenderness, No CVA tenderness and No back tenderness Skin: General skin exam: no rashes or lesions noted Neuro: General: oriented to person, oriented to place, oriented to time, patient oriented x3, gait normal, no meningeal signs and CN's II-XI intact bilaterally Cranial nerves: Yes CN's II-XII intact bilaterally Extrem: General: Yes normal to inspection and Yes full ROM Right upper extremity: normal to inspection Psych: Appearance: grossly normal, well kempt and disheveled Course Course Course Narrative: due to patient's age and history of diabetes patient will have cardiac evaluation. Patient also will be sent for CT scan Of abdomen due to him coming back for similar presentation. patient ordered GI cocktail. Reevaluation(s) Reevaluation #1: After a GI cocktail patient states he feels better. Patient still be sent for abdominal CT scan. Pending troponin. Patient potassium is 5.3. Patient given Kayexalate Time: 14:50 Reevaluation #2: Patient labs came back to baseline. Patient's troponin 6.7. Patient's EKG normal. awaiting CT scan results. Patient any distress. Time: 15:34 Reevaluation #3: CT scan showed gallstones could be cause of patient's pain. CT scan negative for cholecystitis or pancreatitis. Patient has repeat troponin and chemistry pending. Time: 17:45 Additional Reevaluation(s): Soaks with Dr. 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 Dr. Armstrong of vascular states this is chronic and nothing new. Pending chemistry. Signed out to MONIKA Briseno to follow up chemisty ( potassium). Will prepare discharge paper for patient if Hyperaklemia resolves. GERD exacerbation. patient already has GERD meds at home. MDM - Abdominal Pain MDM Narrative Medical decision making narrative: GERD exacerbation and gallstones Lab Data Result diagrams: 07/28/20 12:57 10/25/20 12:57 Labs: Lab Results 07/28/20 07/28/20 07/28/20 Range/Units 12:57 12:57 12:57 WBC 9.1 (4.8-10.8) X10*3/uL RBC 4.36 L (4.60-5.80) X10*6/uL Hgb 12.8 L (14.0-18.0) g/dl Hct 39.4 L (42-52) % MCV 90.4 (80-98) fL MCH 29.4 (27.0-33.0) pg MCHC 32.5 (31.0-36.0) g/dl RDW 11.6 (11.0-16.0) % Plt Count 236 (160-400) X10*3/uL MPV 10.8 (9.4-12.4) fL Immature Gran % (Auto) 0.4 (0.0-0.4) % Neut % (Auto) 56.4 (45-73) % Lymph % (Auto) 31.2 (20-40) % Carver % (Auto) 8.0 (2-11) % Eos % (Auto) 3.6 (0-4) % Baso % (Auto) 0.4 (0-2) % Lymph # (Auto) 2.8 (1.2-4.9) X10*3/uL Carver # (Auto) 0.7 (0.1-1.2) X10*3/uL Eos # (Auto) 0.3 (0.0-0.4) X10*3/uL Baso # (Auto) 0.0 (0.0-0.2) X10*3/uL Abs Immat Gran (auto) 0.04 H (0.00-0.03) X10*3/uL Absolute Neuts (auto) 5.1 (2.0-8.3) X10*3/uL Absolute Nucleated RBC 0.000 (0.0-0.012) X10*3/uL Nucleated RBC % (auto) 0.0 (0.0-0.2) /100WBC PT 11.0 (10.8-13.0) SEC INR 0.9 (0.9-1.1) APTT 36.0 (24.1-38.0) SEC Sodium 139 (135-145) mmol/L Potassium 5.3 H (3.3-5.1) mmol/l Chloride 105 (96-108) mmol/L Carbon Dioxide 23 (22-29) mmol/L Anion Gap 16 (12-20) BUN 42 H (9-16) mg/dL Creatinine 2.13 H (0.5-1.4) mg/dL Estim Creat Clear Calc 40.8 Estimated GFR 32 Random Glucose 245 H D (60-115) mg/dL Calcium 9.5 (8.4-10.2) mg/dL Total Bilirubin 0.3 (0.0-1.0) mg/dL AST 12 (5-37) U/L ALT 11 (0-40) U/L Alkaline Phosphatase 75 (39-117) U/L Troponin I High Sens (<3.5-35.0) ng/L Total Protein 8.1 H (6.5-8.0) g/dL Albumin 4.6 (3.5-5.0) g/dL Lipase 77 (8-78) U/L 07/28/2007/28/ Range/Units 12:57 15:55 WBC (4.8-10.8) X10*3/uL RBC (4.60-5.80) X10*6/uL Hgb (14.0-18.0) g/dl Hct (42-52) % MCV (80-98) fL MCH (27.0-33.0) pg MCHC (31.0-36.0) g/dl RDW (11.0-16.0) % Plt Count (160-400) X10*3/uL MPV (9.4-12.4) fL Immature Gran % (Auto) (0.0-0.4) % Neut % (Auto) (45-73) % Lymph % (Auto) (20-40) % Carver % (Auto) (2-11) % Eos % (Auto) (0-4) % Baso % (Auto) (0-2) % Lymph # (Auto) (1.2-4.9) X10*3/uL Carver # (Auto) (0.1-1.2) X10*3/uL Eos # (Auto) (0.0-0.4) X10*3/uL Baso # (Auto) (0.0-0.2) X10*3/uL Abs Immat Gran (auto) (0.00-0.03) X10*3/uL Absolute Neuts (auto) (2.0-8.3) X10*3/uL Absolute Nucleated RBC (0.0-0.012) X10*3/uL Nucleated RBC % (auto) (0.0-0.2) /100WBC PT (10.8-13.0) SEC INR (0.9-1.1) APTT (24.1-38.0) SEC Sodium (135-145) mmol/L Potassium (3.3-5.1) mmol/l Chloride (96-108) mmol/L Carbon Dioxide (22-29) mmol/L Anion Gap (12-20) BUN (9-16) mg/dL Creatinine (0.5-1.4) mg/dL Estim Creat Clear Calc Estimated GFR Random Glucose (60-115) mg/dL Calcium (8.4-10.2) mg/dL Total Bilirubin (0.0-1.0) mg/dL AST (5-37) U/L ALT (0-40) U/L Alkaline Phosphatase (39-117) U/L Troponin I High Sens 6.7 7.3 (<3.5-35.0) ng/L Total Protein (6.5-8.0) g/dL Albumin (3.5-5.0) g/dL Lipase (8-78) U/L ECG Data Interpretation: normal sinus rhythm. Normal EKG. Ventricular rate 60. Pr interval 150 Discharge Plan Discharge Clinical Impression: GERD (gastroesophageal reflux disease), Gallstone Patient Disposition: Home, Self-Care Instructions: Gallstones (ED), Gastroesophageal Reflux Disease (ED) Additional Instructions: return to the ED for any nausea, vomiting, chest pain, shortness of breath, weakness, fever, chills, severe abdominal pain, diarrhea, hematuria, flank pain, or any other concerning symptoms. Please follow up with your PCP Prescriptions: New oxycodone-acetaminophen 5-325 mg tablet 1 tab PO Q6H PRN (Reason: pain) Qty: 12 RF: 0 No Action aspirin [Adult Low Dose Aspirin] 81 mg tablet,delayed release (DR/EC) 81 mg PO DAILY 90 Days Qty: 90 RF: 1 nifedipine 30 mg tablet extended release 24hr 30 mg PO DAILY 90 Days Qty: 90 RF: 1 risperidone [Risperdal] 0.5 mg tablet 0.5 mg PO BID RF: 0 trazodone 50 mg tablet 50 mg PO DAILY RF: 0 lactulose [Enulose] 10 gram/15 mL solution 10 g PO DAILY RF: 0 acetaminophen [Tylenol] 325 mg tablet 325 mg PO Q6H PRN (Reason: temp, headache or general discomfort) RF: 0 polyethylene glycol 3350 [Miralax] 17 gram/dose powder 17 g PO DAILY RF: 0 trolamine salicylate [Asper-Flex] 10 % cream 1 applic topical TID RF: 0 hydrocortisone valerate 0.2 % cream 1 applic topical BID PRNRF: 0 ursodiol 300 mg capsule 300 mg PO BID RF: 0 ascorbic acid (vitamin C) 500 mg capsule PO BID RF: 0 lorazepam [Ativan] 0.5 mg tablet 0.5 mg PO BID RF: 0 Jardiance 10 mg tablet 10 mg PO DAILY RF: 0 meclizine 25 mg tablet 25 mg PO TID PRN (Reason: dizziness) RF: 0 tamsulosin 0.4 mg capsule 0.4 mg PO BEDTIME RF: 0 losartan 50 mg tablet 50 mg PO DAILY RF: 0 Trulicity 1.5 mg/0.5 mL pen injector 1.5 mg subcut QWEEK RF: 0 insulin lispro [Humalog KwikPen Insulin] 100 unit/mL insulin pen 2 unit subcut .per sliding scale RF: 0 simvastatin 40 mg tablet 40 mg PO BEDTIME RF: 0 hydralazine 50 mg tablet 50 mg PO TID RF: 0 ferrous sulfate [Trent-Time] 325 mg (65 mg iron) tablet 325 mg PO DAILY RF: 0 ergocalciferol (vitamin D2) 1,250 mcg (50,000 unit) capsule 1,250 mcg PO .monthly RF: 0 sennosides [Evac-U-Gen (sennosides)] 8.6 mg tablet 8.6 mg PO BID RF: 0 magnesium oxide [MagOx] 400 mg (241.3 mg magnesium) tablet 400 mg PO DAILY PRN (Reason: constipation) RF: 0 metoprolol succinate 25 mg tablet extended release 24 hr 25 mg PO DAILY RF: 0 Aspercreme with Aloe 10 % cream 1 applic topical TID-QID PRNRF: 0 lorazepam [Ativan] 0.5 mg tablet 0.5 mg PO DAILY PRNRF: 0 (DME) lancets [FreeStyle Lancets] 28 gauge misc See Rx Instructions .ROUTE .MEDSUPPLY Qty: 100 RF: 0 famotidine [Pepcid] 20 mg tablet 20 mg PO BID PRN (Reason: acid reflux) 90 Days Qty: 90 RF: 1 Referrals: Marky Urbina MD [Physician] - 2 days (gallstones. negative cholecystitis) Print Language: Croatian [facility] Past Medical History Medical History (Updated 07/28/20 @ 18:30 by MONIKA Cano) Anemia Aphagia Bronchitis Chronic kidney disease, stage 3 CKD (chronic kidney disease) Constipation Diabetes GERD (gastroesophageal reflux disease) Hearing loss Hemiplegia HTN (hypertension) Hyperlipidemia Hyperlipidemia Hypertensive chronic kidney disease with stage 1 through stage 4 chronic kidney disease, or unspecified chronic kidney disease Preglaucoma Type 2 diabetes mellitus with chronic kidney disease Unsteady gait Vascular device, implant, or graft complication Vitamin D deficiency Vitamin D deficiency Social History Social History Alcohol intake: never Smoking Status: Never smoker Use of substances other than those prescribed or required for medical reasons: No Advance Directives: No Advance Directives Information Provided: No
[2020-07-28] MEDS: Sodium Polystyrene Sulfon/Sorb 15 GM/60 ML ORAL.SUSP 45 GM PO (14:49)
[2020-07-28 15:50] VITALS: BP 143/73; PULSE 56; RESP 13; O2SAT 95
[2020-07-28 16:30] LABS: Troponin-I High Sensitivity 7.3 ng/L (<3.5-35.0)
[2020-07-28 18:28] VITALS: BP 132/63; PULSE 77; RESP 19; O2SAT 99
--- NOTE | 2020-07-28 18:29 | PC.NURSE ---
LABS DRAWN, AWAITING RESULTS. PT AWARE.
--- NOTE | 2020-07-28 18:40 | PC.NURSE ---
updated jerzy program planner on status of pt.
[2020-07-28 19:05] LABS: Alanine Aminotransferase 9 U/L (0-40); Albumin Level 4.4 g/dL (3.5-5.0); Alkaline Phosphatase 60 U/L (39-117); Anion Gap 16 (12-20); Aspartate Amino Transferase 10 U/L (5-37); Bilirubin Total 0.3 mg/dL (0.0-1.0); Blood Urea Nitrogen 37 mg/dL (9-16); Carbon Dioxide 22 mmol/L (22-29); Chloride 110 mmol/L (96-108); Creatinine Clr Calc Pharmacy 44.1; Estimated Glomerular Filt Rate 35; Potassium 4.8 mmol/l (3.3-5.1); Sodium 143 mmol/L (135-145); Total Protein 7.6 g/dL (6.5-8.0)
[2020-07-28 19:14] LABS: Glucose Random 121 mg/dL (60-115)
--- NOTE | 2020-07-28 19:16 | PC.NURSE ---
[facility] Detemir subq by [facility] each evening. [facility] will not be going to the skilled nursing this evening. requesting we administer this. Cele FRANK alerted.
[2020-07-28 19:33] LABS: Glucose, Whole Blood 107 mg/dL (60-115)
--- NOTE | 2020-07-28 19:53 | PC.NURSE ---
CALL PLACED FOR CHAIR TRANSPORT.
--- NOTE | 2020-07-28 19:54 | PC.NURSE ---
PT EATING 2 SANDIWCHES AND REESE DAWN
[2020-07-28] MEDS: Insulin Glargine,Hum.rec.anlog 100 UNIT/ML 10 ML VIAL 30 UNIT SUBCUT (20:00)
[2020-07-28 20:27] LABS: Glucose, Whole Blood 123 mg/dL (60-115)
== END 2020-07-28 20:45 | disposition home or self-care (01) ==
PROVIDERS: Physician Assistant; Emergency Provider Emergency Medicine
DX: K21.9 Gastro-esophageal reflux disease without esophagitis (principal); K80.80 Other cholelithiasis without obstruction; E11.22 Type 2 diabetes mellitus with diabetic chronic kidney disease; I12.9 Hypertensive chronic kidney disease with stage 1 through stage 4 chronic kidney disease, or unspecified chronic kidney disease; N18.30 Chronic kidney disease, stage 3 unspecified; Z79.899 Other long term (current) drug therapy
CPT/HCPCS: 36415; 74176; 80053; 82947; 83690; 84484; 85025; 85610; 85730; 93005; 96361; 96374; 99284

== ENCOUNTER → 2020-07-29 10:18 | Outpatient (BNVA) | payer MEDICAID, SELFPAY | PROVIDERS: PCP Hospitalist; Visit Provider Internal Medicine Cardiovascular Disease | DX: R07.9 Chest pain, unspecified (principal); I10 Essential (primary) hypertension; E11.9 Type 2 diabetes mellitus without complications | CPT/HCPCS: 93005; 99204 ==

== ENCOUNTER → 2020-08-01 11:40 | Outpatient (BNVA) | payer MEDICAID, SELFPAY | PROVIDERS: PCP Family Medicine; Referring Provider Family Medicine; Visit Provider Nurse Practitioner Gerontology | DX: E11.22 Type 2 diabetes mellitus with diabetic chronic kidney disease (principal); I12.9 Hypertensive chronic kidney disease with stage 1 through stage 4 chronic kidney disease, or unspecified chronic kidney disease; N18.31 Chronic kidney disease, stage 3a; Z79.4 Long term (current) use of insulin; E78.5 Hyperlipidemia, unspecified; E55.9 Vitamin D deficiency, unspecified | CPT/HCPCS: 82947; 99212 ==

== ENCOUNTER 2020-08-04 15:49 | Emergency (ER) | payer MEDICAID, SELFPAY ==
[2020-08-04 16:18] VITALS: BP 138/74; PULSE 77; RESP 18; TEMP 36.9; O2SAT 98; BMI 67.6
[2020-08-04 16:22] VITALS: BP 138/74; PULSE 71; RESP 18; TEMP 36.6; O2SAT 97
--- NOTE | 2020-08-04 16:56 | ED_ITS ---
HPI - Abdominal Pain General Chief Complaint: Abdominal Pain Stated Complaint: ABD PAIN/VOMITING Time Seen by Provider: 08/04/20 16:51 Source: patient Mode of arrival: ambulatory Limitations: no limitations and language barrier History of Present Illness HPI narrative: Patient's history of gallstone gastritis diabetes been here 2 times 07/22 and 07/28 for epigastric pain had a CT scan done with a negative except for gallstones comes here for similar pain for last 2 days which is more likely burning MD elicited complaint: abdominal pain Pertinent past history: none Onset (ago): day(s) (1) Pain Consistency: constant Location: epigastric Severity: similar to previous episodes Quality: burning Radiation: epigastric Migration to: no migration Exacerbating factors: eating Relieving factors: nothing Associated symptoms: nausea Related Data Home Medications Medication Instructions Recorded Confirmed acetaminophen 325 mg tablet 325 mg PO Q6H PRN tab 07/24/20 08/01/20 ascorbic acid (vitamin C) 500 mg mg PO BID cap 07/24/20 08/01/20 capsule ergocalciferol (vitamin D2) 1,250 1,250 mcg PO .monthly cap 07/24/20 08/01/20 mcg (50,000 unit) capsule ferrous sulfate 325 mg (65 mg 325 mg PO DAILY 07/24/20 08/01/20 iron) tablet hydralazine 50 mg tablet 50 mg PO TID 07/24/20 08/01/20 hydrocortisone valerate 0.2 % 1 applic TOPICAL BID PRN 07/24/20 08/01/20 topical cream lactulose 10 gram/15 mL oral 10 g PO DAILY 07/24/20 08/01/20 solution lorazepam 0.5 mg tablet 0.5 mg PO DAILY PRN 07/24/20 08/01/20 magnesium oxide 400 mg (241.3 mg 400 mg PO DAILY PRN 07/24/20 08/01/20 magnesium) tablet meclizine 25 mg tablet 25 mg PO TID PRN 07/24/20 08/01/20 metoprolol succinate 25 mg 25 mg PO DAILY 07/24/20 08/01/20 tablet,extended release 24 hr risperidone 0.5 mg tablet 0.5 mg PO BID 07/24/20 08/01/20 sennosides 8.6 mg tablet 8.6 mg PO BID 07/24/20 08/01/20 trazodone 50 mg tablet 50 mg PO DAILY 07/24/20 08/01/20 trolamine salicylate 10 % topical 1 applic TOPICAL TID 07/24/20 08/01/20 cream trolamine salicylate-aloe vera 10 1 applic TOPICAL TID-QID PRN 07/24/20 08/01/20 % topical cream ursodiol 300 mg capsule 300 mg PO BID 07/24/20 08/01/20 Previous Rx's Medication Instructions Recorded aspirin 81 mg tablet,delayed 81 mg PO DAILY 90 Days #90 tab 07/09/20 release nifedipine 30 mg tablet,extended 30 mg PO DAILY 90 Days #90 tab 07/09/20 release 24 hr famotidine 20 mg tablet 20 mg PO BID PRN 90 Days #90 tab 07/24/20 losartan 50 mg tablet 50 mg PO DAILY 30 Days #30 tab 07/30/20 polyethylene glycol 3350 17 17 g PO DAILY 30 Days #510 g 07/30/20 gram/dose oral powder simvastatin 40 mg tablet 40 mg PO BEDTIME 30 Days #30 tab 07/30/20 tamsulosin 0.4 mg capsule 0.4 mg PO BEDTIME 30 Days #30 cap 07/30/20 lancets 28 gauge #100 ea 07/31/20 dulaglutide 1.5 mg/0.5 mL 1 mg SUBCUT QWEEK 28 Days #2 ml 08/01/20 subcutaneous pen injector empagliflozin 10 mg tablet 10 mg PO QAM #30 tab 08/01/20 insulin detemir U-100 100 unit/mL 58 unit SUBCUT BID 30 Days #45 ml 08/01/20 (3 mL) subcutaneous pen insulin lispro 100 unit/mL 4 - 12 unit SUBCUT BID 30 Days #15 08/01/20 subcutaneous pen ml Allergies Allergy/AdvReac Type Severity Reaction Status Date / Time amlodipine [From [facility]] Allergy Severe due to Verified 08/01/20 12:11 poor renal function no ibuprofen 2/2 renal Allergy Severe due to Uncoded 07/31/20 11:26 functio poor renal function Review of Systems Review of Systems REVIEW OF SYSTEMS: Pertinent positives and negatives are stated above in the history. GEN: no fevers, chills, fatigue HEENT: no nasal congestion, sore throat, ear pain NEURO: no headache, dizziness, focal weakness PULM: no cough, shortness of breath CV: no chest pain, palpitations, LE edema ABD: no vomiting, diarrhea : no dysuria, urgency, frequency SKIN: no rash ROS otherwise negative x 10 Physical Exam Vital Signs: Vital Signs: Vital Signs Temp Pulse Resp BP Pulse Ox 08/04/20 16:22 97.8 F 71 18 138/74 97 08/04/20 16:18 98.4 F 77 18 138/74 98 Body Mass Index 67.6 Appearance: Alert. Oriented X3. No acute distress. Eyes: Pupils equal, round and reactive to light. ENT: Pharynx normal. Neck: Normal inspection. Neck supple. CVS: Normal heart rate and rhythm. Pulses normal. Respiratory: No respiratory distress. Breath sounds normal. Abdomen: Soft and mild epigastric tenderness no mass palpable no rebound tenderness or guarding bowel sounds are present all 4 quadrants. Skin: Skin warm and dry. Normal skin color. Normal skin turgor. Extremities: No lower extremity edema. Good range of movement Neuro: Oriented X 3. No motor deficit. No sensory deficit. Discharge Plan Discharge Prescriptions: No Action aspirin [Adult Low Dose Aspirin] 81 mg tablet,delayed release (DR/EC) 81 mg PO DAILY 90 Days Qty: 90 RF: 1 nifedipine 30 mg tablet extended release 24hr 30 mg PO DAILY 90 Days Qty: 90 RF: 1 simvastatin 40 mg tablet 40 mg PO BEDTIME 30 Days Qty: 30 RF: 11 losartan 50 mg tablet 50 mg PO DAILY 30 Days Qty: 30 RF: 10 polyethylene glycol 3350 [Miralax] 17 gram/dose powder 17 g PO DAILY 30 Days Qty: 510 RF: 10 tamsulosin 0.4 mg capsule 0.4 mg PO BEDTIME 30 Days Qty: 30 RF: 6 (DME) lancets [FreeStyle Lancets] 28 gauge misc See Rx Instructions .ROUTE .MEDSUPPLY Qty: 100 RF: 5 risperidone [Risperdal] 0.5 mg tablet 0.5 mg PO BID RF: 0 trazodone 50 mg tablet 50 mg PO DAILY RF: 0 lactulose [Enulose] 10 gram/15 mL solution 10 g PO DAILY RF: 0 acetaminophen [Tylenol] 325 mg tablet 325 mg PO Q6H PRN (Reason: temp, headache or general discomfort) RF: 0 trolamine salicylate [Asper-Flex] 10 % cream 1 applic topical TID RF: 0 hydrocortisone valerate 0.2 % cream 1 applic topical BID PRNRF: 0 ursodiol 300 mg capsule 300 mg PO BID RF: 0 ascorbic acid (vitamin C) 500 mg capsule PO BID RF: 0 meclizine 25 mg tablet 25 mg PO TID PRN (Reason: dizziness) RF: 0 hydralazine 50 mg tablet 50 mg PO TID RF: 0 ferrous sulfate [Trent-Time] 325 mg (65 mg iron) tablet 325 mg PO DAILY RF: 0 ergocalciferol (vitamin D2) 1,250 mcg (50,000 unit) capsule 1,250 mcg PO .monthly RF: 0 sennosides [Evac-U-Gen (sennosides)] 8.6 mg tablet 8.6 mg PO BID RF: 0 magnesium oxide [MagOx] 400 mg (241.3 mg magnesium) tablet 400 mg PO DAILY PRN (Reason: constipation) RF: 0 metoprolol succinate 25 mg tablet extended release 24 hr 25 mg PO DAILY RF: 0 Aspercreme with Aloe 10 % cream 1 applic topical TID-QID PRNRF: 0 lorazepam [Ativan] 0.5 mg tablet 0.5 mg PO DAILY PRNRF: 0 famotidine [Pepcid] 20 mg tablet 20 mg PO BID PRN (Reason: acid reflux) 90 Days Qty: 90 RF: 1 Trulicity 1.5 mg/0.5 mL pen injector 1 mg subcut QWEEK 28 Days Qty: 2 RF: 3 Jardiance 10 mg tablet 10 mg PO QAM Qty: 30 RF: 3 Levemir FlexTouch U-100 Insuln 100 unit/mL (3 mL) insulin pen 58 unit subcut BID 30 Days Qty: 45 RF: 3 insulin lispro [Humalog KwikPen Insulin] 100 unit/mL insulin pen 4 - 12 unit subcut BID 30 Days Qty: 15 RF: 3 [facility] Past Medical History Medical History Anemia Aphagia Bronchitis Chest pain Chronic kidney disease, stage 3 CKD (chronic kidney disease) Constipation Diabetes GERD (gastroesophageal reflux disease) Hearing loss Hemiplegia HTN (hypertension) Hyperlipidemia Hyperlipidemia Hypertensive chronic kidney disease with stage 1 through stage 4 chronic kidney disease, or unspecified chronic kidney disease Preglaucoma Stroke Type 2 diabetes mellitus with chronic kidney disease Unsteady gait Vascular device, implant, or graft complication Vitamin D deficiency Vitamin D deficiency Social History Social History Alcohol intake: never Smoking Status: Never smoker Advance Directives: No Advance Directives Information Provided: Yes
[2020-08-04] MEDS: ondansetron HCL 4 MG/2 ML VIAL IVPUSH (17:30)
[2020-08-04] MEDS: Famotidine/PF 20 MG/2 ML VIAL IVPUSH (17:30)
[2020-08-04] MEDS: Magnesium Hydrox/Alum Hydrox 30 ML ORAL.SUSP PO (17:30)
[2020-08-04] MEDS: 0.9 % Sodium Chloride 1,000 ML 999 ML IVCONT (17:30)
[2020-08-04 18:08] LABS: MANUAL DIFF FLAG NO
[2020-08-04 18:11] LABS: Basophils Percent Auto 0.4 % (0-2); Eosinophils Absolute Auto 0.3 X10*3/uL (0.0-0.4); Eosinophils Percent Auto 2.8 % (0-4); Hematocrit 38.6 % (42-52); Hemoglobin 12.6 g/dl (14.0-18.0); Imm Gran Abs Auto 0.03 X10*3/uL (0.00-0.03); Imm Gran Pct Auto 0.3 % (0.0-0.4); Lymphocytes Percent Auto 31.7 % (20-40); Mean Corpuscular HGB Conc 32.6 g/dl (31.0-36.0); Mean Corpuscular Volume 88.7 fL (80-98); Mean Platelet Volume 11.5 fL (9.4-12.4); Monocytes Absolute Auto 0.9 X10*3/uL (0.1-1.2); Neutrophils Absolute Auto 5.3 X10*3/uL (2.0-8.3); Neutrophils Percent Auto 55.8 % (45-73); Platelet Count 228 X10*3/uL (160-400); Red Blood Count 4.35 X10*6/uL (4.60-5.80); Red Cell Distribution Width 11.9 % (11.0-16.0); White Blood Count 9.4 X10*3/uL (4.8-10.8)
[2020-08-04 18:23] VITALS: BP 138/88; RESP 18
--- NOTE | 2020-08-04 18:32 | PC.NURSE ---
patient has information from longterm at bedside. Home diretor asked that patient be sent back with documentation.
[2020-08-04 18:39] LABS: Alanine Aminotransferase 9 U/L (0-40); Albumin Level 4.4 g/dL (3.5-5.0); Alkaline Phosphatase 72 U/L (39-117); Anion Gap 17 (12-20); Aspartate Amino Transferase 9 U/L (5-37); Bilirubin Direct < 0.2 mg/dL (0.0-0.5); Bilirubin Total < 0.2 mg/dL (0.0-1.0); Blood Urea Nitrogen 61 mg/dL (9-16); Calcium 9.1 mg/dL (8.4-10.2); Carbon Dioxide 24 mmol/L (22-29); Chloride 104 mmol/L (96-108); Creatinine Clr Calc Pharmacy 60.9; Estimated Glomerular Filt Rate 32; Glucose Random 205 mg/dL (60-115); Lipase 61 U/L (8-78); Potassium 5.2 mmol/l (3.3-5.1); Sodium 140 mmol/L (135-145); Total Protein 7.7 g/dL (6.5-8.0)
[2020-08-04 19:57] VITALS: BP 145/62; PULSE 60; RESP 18; TEMP 36.6; O2SAT 97
[2020-08-04 20:54] VITALS: BP 148/76; PULSE 19; RESP 20; O2SAT 96
== END 2020-08-04 21:00 | disposition home or self-care (01) ==
PROVIDERS: Emergency Provider Internal Medicine
DX: R10.13 Epigastric pain (principal); R11.10 Vomiting, unspecified; Z79.899 Other long term (current) drug therapy
CPT/HCPCS: 36415; 80048; 80076; 83690; 85025; 96361; 96374; 96375; 99284; J2405

== ENCOUNTER → 2020-08-16 10:25 | Outpatient (REF) | payer MEDICAID, SELFPAY ==
--- NOTE | 2020-08-16 | NM_ITS ---
Myocardial perfusion study Indication: Chest pain to evaluate for myocardial ischemia Technique: The patient was brought in for a Lexiscan perfusion study on 08/16/2020. Patient performed low-level exercise and was injected 0.4 mg of Lexiscan intravenously. Within a minute of injection, 30 mCi of sestamibi was given intravenously. Images were obtained using the SPECT gamma camera interlaced with the gating device. Images were obtained in supine position. Resting perfusion study was performed on 08/19/2020. Patient was administered 30 mCi of sestamibi intravenously at rest. Images were then obtained in supine position. Images obtained with and without CT attenuation. Total DLP 92 MGY-CM. Images were processed with the software and compared side to side in short axis, horizontal long axis and vertical long axis views. Findings: The stress perfusion study showed non attenuated images show normal uptake of radiotracer in all segments of LV myocardium.. The gated study shows normal LV systolic function with calculated LVEF of 64%. LV cavity is normal in size. The gated study shows normal systolic wall thickening and contraction of segments. Resting study shows no change in perfusion pattern compared to stress perfusion study. Gating at rest reveals normal systolic wall motion with ejection fraction at 59%. The findings are consistent with normal myocardial perfusion. NM/NM fawad perf SPECT rest & str Impression: 1. Myocardial perfusion imaging study shows normal myocardial perfusion 2. Gated LVEF is 64% 3. Transient ischemic dilatation not present EKG is nondiagnostic for ischemia
--- NOTE | 2020-08-16 10:29 | CA_ITS ---
Acquisition Time: 2020-08-16 11:55:56 Total Exercise Time: 00:02:00 Test Indications: cp Medications: see chart Protocol: LEXISCAN Max HR: 099 BPM 60% of Pred: 163 BPM Max BP: 140/080 mmHG Max Work Load: 1.0 METS Pharmacological stress test with Lexiscan injection while sitting and kicking his legs, without anginal symptoms, without arrythmia, with normotensive response to injection, with nondiagnostic EKG for ischemia. In recovery he reported abdomenal discomfort that was treated with Aminophylline 75mg IVP to reverse Lexiscan with improvement in symptom. Nuclear images pending. Test reviewed with Dr Higginbotham. Referred By: Marino Benson Overread By: CHACORTA HARDY
== END ==
LOC: HO.CARD 10:25
PROVIDERS: Visit Provider Internal Medicine Cardiovascular Disease
DX: R07.9 Chest pain, unspecified (principal)
CPT/HCPCS: 78452; 93017; A9500; J0280; J2785

== ENCOUNTER → 2020-08-22 11:19 | Outpatient (BNVA) | payer MEDICAID, SELFPAY | PROVIDERS: Visit Provider Internal Medicine Cardiovascular Disease | DX: R07.9 Chest pain, unspecified (principal) | CPT/HCPCS: 99212 ==

== ENCOUNTER → 2020-09-03 13:16 | Outpatient (REF) | payer MEDICAID, SELFPAY ==
--- NOTE | 2020-09-03 13:21 | CA_ITS ---
Transthoracic Echocardiogram Patient (Last, First, Middle): Simeon Balbuena, Gender: Male Date of : 1960 Age: 60 Procedure Date: 09/03/2020 Procedure Type: Transthoracic Echocardiogram Location: OP Height: 167.64 cm Weight: 97.52 kg BSA: 2.06 m2 Heart Rate: bpm BP: 118 / 70 mmHg Head Of Measurement & Insights: LITA Referring MD: Marino Benson MD Dental Hygiene Teacher: Prabahkar Higginbotham MD Symptoms: R07.9 - Chest pain, unspecified Study Quality: Fair ECG Rhythm: Sinus Conclusions: - Normal study Findings Left Ventricle Normal left ventricular size, thickness, and systolic function. The visually estimated ejection fraction is between 65-70%. Diastolic function is normal for age. Right Ventricle Normal right ventricular cavity size and systolic function. Atria Both atria are normal in size. There is no evidence of interatrial shunt. Aortic Valve Normal aortic valve structure and function. There is no aortic valve stenosis. There is no aortic valve regurgitation. Mitral Valve Normal mitral valve structure and function. There is trace mitral valve regurgitation. There is no mitral valve stenosis. Pulmonic Valve The pulmonic valve is likely normal. There is no pulmonic valve regurgitation. Tricuspid Valve Normal tricuspid valve structure. There is trace tricuspid valve regurgitation. The right ventricular systolic pressure is normal. The right ventricular systolic pressure is 22 mmHg. Normal right atrial pressure. There is no evidence of pulmonary hypertension. Great Vessels All visible segments of the aorta are normal in size. The pulmonary artery was not well visualized. Venous The inferior vena cava is normal in size and collapses greater than 50% with inspiration. Pericardium/Pleural There is no evidence of pericardial effusion. Prior Study Comparison No prior study available for comparison. Measurements 2D Linear Measurements IVSd: 0.94 0.6-0.9/0.6-1.0 cm LVIDd: 4.61 3.9-5.3/4.2-5.9 cm LVIDd Index: 2.24 2.4-3.2/2.2-3.1 cm/m2 LVIDs: 3.15 2.0-3.6 cm LVPWd: 1.03 0.7-1.1 cm Ao Root: 2.60 2.1-3.5 cm LA Diam: 3.30 2.7-3.8/3.0-4.0 cm LAIDs Index: 1.60 1.5-2.3 cm/m2 LV Mass: 193.99 67-162/88-224 g LV Mass Index: 94.17 43-95/49-115 g/m2 LVOT Diam: 2.20 3.0+(-)1.3 cm 2D Systolic Function EF 4C: 66.80 >55% EF 2C: 69.30 >55% EF BiP: 69.00 >55% Mitral Valve MV Pk E: 0.77 MV PK A: 0.76 MV Decel Time: 239.00 E/A: 1.00 E'Lateral: 11.20 E'Medial: 9.57 E/E' Med: 8.00 E/E' Lat: 6.80 PHT: 70.00 MVA PHT: 3.14 Decel Cataño: 3.20 Aortic Valve AoV Pk Ritesh: 1.59 AoV Pk Grad: 10.00 LVOT LVOT Pk Ritesh: 1.13 LVOT Mn Ritesh: 0.73 LVOT VTI: 0.24 LVOT Pk Grad: 5.00 LVOT Mn Grad: 3.00 LVOT Diam: 2.20 LVOT Area: 3.80 Diastolic Function MV Pk E: 0.77 MV Pk A: 0.76 E/A: 1.00 E'Medial: 9.57 E/E' Med: 8.00 E' Laterial: 11.20 E/E' Lat: 6.80 Tricuspid Valve TR Pk Ritesh: 2.18 TR Pk Grad: 19.00 RA Press: 3.00 RVSP: 22.00 Great Vessels Aorta Ao Root-2D: 2.60 2.0-3.7 cm Ao Asc: 2.80 2.1-3.4 cm Updated in Other Vendor System with Status of Final Prabhakar Higginbotham MD electronically signed on 09/04/2020 5:41:12 PM with status of Final
== END ==
LOC: HO.CARD 13:16
PROVIDERS: Visit Provider Internal Medicine Cardiovascular Disease
DX: R07.9 Chest pain, unspecified (principal)
CPT/HCPCS: 93306

== ENCOUNTER 2020-10-15 16:46 | Emergency (ER) | payer MEDICAID, SELFPAY ==
[2020-10-15 17:15] VITALS: BP 106/58; PULSE 68; PULSE 99; RESP 18; TEMP 36.4; O2SAT 96; O2SAT 98; BMI 33.0
--- NOTE | 2020-10-15 17:21 | ED_ITS ---
HPI - Chest Pain General Chief Complaint: Chest Pain Stated Complaint: SUBSTERNAL CP Time Seen by Provider: 10/15/20 19:52 Source: patient Mode of arrival: ambulatory Limitations: no limitations History of Present Illness HPI narrative: Patient presents to ED for left-sided chest pain described more as palpitations and acid burning sensation. Patient has been to the ED in July twice for similar presentation. Patient denies any shortness of breath. Patient states no swelling of lower extremity, calf pain, coughing up blood, fever, or chills. She denies any chest pain on inspiration, coughing up blood, swelling of lower extremity, calf pain leg swelling, recent surgery, recent trauma, or estrogen use. MD complaint: chest pain Related Data Home Medications Medication Instructions Recorded Confirmed acetaminophen 325 mg tablet 325 mg PO Q6H PRN tab 07/24/20 10/02/20 ascorbic acid (vitamin C) 500 mg mg PO BID cap 07/24/20 10/02/20 capsule hydrocortisone valerate 0.2 % 1 applic TOPICAL BID PRN 07/24/20 10/02/20 topical cream lactulose 10 gram/15 mL oral 10 g PO DAILY 07/24/20 10/02/20 solution lorazepam 0.5 mg tablet 0.5 mg PO DAILY PRN 07/24/20 10/02/20 magnesium oxide 400 mg (241.3 mg 400 mg PO DAILY PRN 07/24/20 10/02/20 magnesium) tablet risperidone 0.5 mg tablet 0.5 mg PO BID 07/24/20 10/02/20 trazodone 50 mg tablet 50 mg PO DAILY 07/24/20 10/02/20 ursodiol 300 mg capsule 300 mg PO BID 07/24/20 10/02/20 Previous Rx's Medication Instructions Recorded aspirin 81 mg tablet,delayed 81 mg PO DAILY 90 Days #90 tab 07/09/20 release nifedipine 30 mg tablet,extended 30 mg PO DAILY 90 Days #90 tab 07/09/20 release 24 hr famotidine 20 mg tablet 20 mg PO BID PRN 90 Days #90 tab 07/24/20 losartan 50 mg tablet 50 mg PO DAILY 30 Days #30 tab 07/30/20 polyethylene glycol 3350 17 17 g PO DAILY 30 Days #510 g 07/30/20 gram/dose oral powder simvastatin 40 mg tablet 40 mg PO BEDTIME 30 Days #30 tab 07/30/20 tamsulosin 0.4 mg capsule 0.4 mg PO BEDTIME 30 Days #30 cap 07/30/20 lancets 28 gauge #100 ea 07/31/20 empagliflozin 10 mg tablet 10 mg PO QAM #30 tab 08/01/20 insulin lispro 100 unit/mL 4 - 12 unit SUBCUT BID 30 Days #15 08/01/20 subcutaneous pen ml sucralfate 1 g PO BID #60 tab 08/04/20 ferrous sulfate 325 mg (65 mg 325 mg PO DAILY #28 tab 08/06/20 iron) tablet hydralazine 50 mg tablet 50 mg PO TID #84 tab 08/06/20 insulin detemir U-100 100 unit/mL 58 unit SUBCUT BID 30 Days #45 ml 08/06/20 (3 mL) subcutaneous pen metoprolol succinate 25 mg 25 mg PO BEDTIME #28 tab 08/06/20 tablet,extended release 24 hr ergocalciferol (vitamin D2) 1,250 1,250 mcg PO .COMPLEX #1 cap 08/26/20 mcg (50,000 unit) capsule sennosides 8.6 mg tablet 8.6 mg PO BID #60 tab 08/26/20 dulaglutide 1.5 mg/0.5 mL 1.5 mg SUBCUT QWEEK 28 Days #2 ml 09/10/20 subcutaneous pen injector erythromycin 5 mg/gram (0.5 %) eye 0.5 inch OPHTHALMIC (EYE) BID 10 09/20/20 ointment Days #3.5 g pen needle, diabetic 31 gauge x 1 ea SUBCUT TID #100 ea 10/02/20 5 meclizine 25 mg tablet 25 mg PO TID #84 tab 10/03/20 pen needle, diabetic 31 gauge x 1 ea SUBCUT TID 30 Days #100 ea 10/03/20 5/16 Allergies Allergy/AdvReac Type Severity Reaction Status Date / Time amlodipine [From [facility]] Allergy Severe due to Verified 10/15/20 17:14 poor renal function ibuprofen Allergy Severe 2/2 renal Verified 10/15/20 17:14 function Review of Systems Constitutional: Constitutional: Reports as per HPI and Reports no additional constitutional complaints Eyes: Eyes: Reports as per HPI and Reports no additional eye complaints ENT: Reports system reviewed and no additional complaints, except as documented and Reports as per HPI Cardiovascular: Cardiovascular: Reports as per HPI, Reports no additional cardiovascular complaints, Reports chest pain, Denies dyspnea and Denies dyspnea on exertion Comments: Palpitations Respiratory: Respiratory: Reports as per HPI, Reports no additional respiratory complaints, Denies pain on inspiration, Denies dyspnea and Denies dyspnea on exertion Gastrointestinal: Gastrointestinal: Reports as per HPI and Reports no additional gastrointestinal complaints Genitourinary: Genitourinary: Reports no additional male genitourinary complaints and Reports as per HPI Musculoskeletal: Musculoskeletal: Reports no additional musculoskeletal complaints and Reports as per HPI Neurologic: Reports system reviewed and no additional complaints, except as documented and Reports as per HPI Psychiatric: Psychiatric: Reports no additional psychiatric complaints and Reports as per HPI [facility] Past Medical History Medical History Anemia Aphagia Bronchitis Chest pain Chronic kidney disease, stage 3 CKD (chronic kidney disease) Constipation Diabetes GERD (gastroesophageal reflux disease) Hearing loss Hemiplegia HTN (hypertension) Hyperlipidemia Hyperlipidemia Hypertensive chronic kidney disease with stage 1 through stage 4 chronic kidney disease, or unspecified chronic kidney disease Preglaucoma Stroke Type 2 diabetes mellitus with chronic kidney disease Unsteady gait Vascular device, implant, or graft complication Vitamin D deficiency Vitamin D deficiency Surgical History History of exploratory laparotomy Family History Family History Father Myocardial infarction Mother Throat cancer Diabetes Family/Other FH: mental illness Social History Social History Alcohol intake: unknown Smoking Status: Former smoker Advance Directives: No Advance Directives Information Provided: Yes Physical Exam Vital Signs: Vital Signs: Last Vital Signs Temp 97.5 F 10/15/20 21:37 Pulse 53 10/15/20 21:37 Resp 18 10/15/20 21:37 BP 134/67 10/15/20 21:37 Pulse Ox 99 10/15/20 20:00 Body Mass Index 33.0 Const: General: cooperative, healthy appearing, comfortable, no acute distress, well developed, alert, awake and Physically active Orientation/consciousness: patient oriented x3 HENMT: Head: Yes normal to inspection, Yes No palpable skull fracture present, Yes normocephalic and Yes atraumatic Eyes: General: appearance normal, both eyes and all related structures Neck: Neck: Yes normal visual inspection, Yes full ROM, Yes no lymphadenopathy, Yes no meningeal signs, Yes trachea midline, Yes supple and No tender Chest: Other: Positive for left reproducible chest pain Chest palpation & inspection: normal inspection of the chest Resp: Effort & Inspection: normal respiratory effort and able to speak in complete sentences Auscultation: clear to auscultation bilaterally Cardio: Jugular venous distension: no JVD Heart sounds: S1 normal heart sound present and S2 normal heart sound present : General: No CVA tenderness and Yes no CVA tenderness Back/Spine/Pelvis: Back: no CVA tenderness, No CVA tenderness and No back tenderness Skin: General skin exam: no rashes or lesions noted and elasticity normal Neuro: General: patient oriented x3, no meningeal signs and CN's II-XI intact bilaterally Cranial nerves: Yes CN's II-XII intact bilaterally Extrem: General: Yes normal to inspection and Yes full ROM Psych: Appearance: grossly normal, well kempt and not disheveled Course Course Course Narrative: Patient will have medical evaluation due to risk factors. Patient will have COVID swab, chest x-ray, D-dimer make sure there is no typical presentation of PR or PE. Patient was seen twice in July with similar presentation with diagnosis of GERD. Patient was given GI cocktail. Reevaluation(s) Reevaluation #1: Patient is sleeping comfortably in bed. Patient chest x-ray negative for pneumonia. Patient COVID swab is normal. Patient troponin and BNP came back negative. Patient D-dimer came back to 207 with positive being over 230 so D-dimer is negative. Wells score 0. Time: 20:20 Reevaluation #2: Patient's 2nd troponin came back negative. Patient negative for COVID and chest x-ray normal. Patient is sleeping comfortably in the ER and not in any distress. Patient states he feels better. . Time: 23:29 MDM - Chest Pain MDM Narrative Medical decision making narrative: Chest pain due to GERD Lab Data Result diagrams: 10/15/20 18:31 10/15/20 18:31 Labs: Lab Results 10/15/20 10/15/20 10/15/20 Range/Units 18:31 18:31 18:31 WBC 10.3 (4.8-10.8) X10*3/uL RBC 4.24 L (4.60-5.80) X10*6/uL Hgb 12.2 L (14.0-18.0) g/dl Hct 36.9 L (42-52) % MCV 87.0 (80-98) fL MCH 28.8 (27.0-33.0) pg MCHC 33.1 (31.0-36.0) g/dl RDW 12.1 (11.0-16.0) % Plt Count 231 (160-400) X10*3/uL MPV 10.8 (9.4-12.4) fL Immature Gran % (Auto) 0.3 (0.0-0.4) % Neut % (Auto) 60.4 (45-73) % Lymph % (Auto) 27.3 (20-40) % [place] % (Auto) 8.4 (2-11) % Eos % (Auto) 3.0 (0-4) % Baso % (Auto) 0.6 (0-2) % Lymph # (Auto) 2.8 (1.2-4.9) X10*3/uL [place] # (Auto) 0.9 (0.1-1.2) X10*3/uL Eos # (Auto) 0.3 (0.0-0.4) X10*3/uL Baso # (Auto) 0.1 (0.0-0.2) X10*3/uL Abs Immat Gran (auto) 0.03 (0.00-0.03) X10*3/uL Absolute Neuts (auto) 6.3 (2.0-8.3) X10*3/uL Absolute Nucleated RBC 0.000 (0.0-0.012) X10*3/uL Nucleated RBC % (auto) 0.0 (0.0-0.2) /100WBC PT 11.5 (10.8-13.0) SEC INR 1.0 (0.9-1.1) APTT 34.7 (24.1-38.0) SEC D-Dimer 207 NG/ML Sodium 140 (135-145) mmol/L Potassium 4.7 (3.3-5.1) mmol/l Chloride 106 (96-108) mmol/L Carbon Dioxide 25 (22-29) mmol/L Anion Gap 14 (12-20) BUN 37 H (9-16) mg/dL Creatinine 1.79 H (0.5-1.4) mg/dL Estim Creat Clear Calc 48.0 Estimated GFR 39 Random Glucose 154 H (60-115) mg/dL Calcium 9.3 (8.4-10.2) mg/dL Ferritin 251 H (20-250) ng/mL Total Bilirubin 0.2 (0.0-1.0) mg/dL Direct Bilirubin < 0.2 (0.0-0.5) mg/dL AST 9 (5-37) U/L ALT 8 (0-40) U/L Alkaline Phosphatase 74 (39-117) U/L Lactate Dehydrogenase 108 L (118-273) U/L Troponin I High Sens (<3.5-35.0) ng/L B-Natriuretic Peptide (<100) pg/mL Total Protein 7.2 (6.5-8.0) g/dL Albumin 4.2 (3.5-5.0) g/dL Lipase (8-78) U/L Procalcitonin ng/mL TSH (0.32-4.0) uIU/mL Coronavirus (PCR) (Negative) Influenza Type A (PCR) (Negative) Influenza Type B (PCR) (Negative) RSV RNA Qual (PCR) (Negative) 10/15/20 10/15/20 10/15/20 Range/Units 18:31 18:31 18:31 WBC (4.8-10.8) X10*3/uL RBC (4.60-5.80) X10*6/uL Hgb (14.0-18.0) g/dl Hct (42-52) % MCV (80-98) fL MCH (27.0-33.0) pg MCHC (31.0-36.0) g/dl RDW (11.0-16.0) % Plt Count (160-400) X10*3/uL MPV (9.4-12.4) fL Immature Gran % (Auto) (0.0-0.4) % Neut % (Auto) (45-73) % Lymph % (Auto) (20-40) % [place] % (Auto) (2-11) % Eos % (Auto) (0-4) % Baso % (Auto) (0-2) % Lymph # (Auto) (1.2-4.9) X10*3/uL [place] # (Auto) (0.1-1.2) X10*3/uL Eos # (Auto) (0.0-0.4) X10*3/uL Baso # (Auto) (0.0-0.2) X10*3/uL Abs Immat Gran (auto) (0.00-0.03) X10*3/uL Absolute Neuts (auto) (2.0-8.3) X10*3/uL Absolute Nucleated RBC (0.0-0.012) X10*3/uL Nucleated RBC % (auto) (0.0-0.2) /100WBC PT (10.8-13.0) SEC INR (0.9-1.1) APTT (24.1-38.0) SEC D-Dimer NG/ML Sodium (135-145) mmol/L Potassium (3.3-5.1) mmol/l Chloride (96-108) mmol/L Carbon Dioxide (22-29) mmol/L Anion Gap (12-20) BUN (9-16) mg/dL Creatinine (0.5-1.4) mg/dL Estim Creat Clear Calc Estimated GFR Random Glucose (60-115) mg/dL Calcium (8.4-10.2) mg/dL Ferritin (20-250) ng/mL Total Bilirubin (0.0-1.0) mg/dL Direct Bilirubin (0.0-0.5) mg/dL AST (5-37) U/L ALT (0-40) U/L Alkaline Phosphatase (39-117) U/L Lactate Dehydrogenase (118-273) U/L Troponin I High Sens 4.1 (<3.5-35.0) ng/L B-Natriuretic Peptide < 10 (<100) pg/mL Total Protein (6.5-8.0) g/dL Albumin (3.5-5.0) g/dL Lipase (8-78) U/L Procalcitonin 0.02 ng/mL TSH (0.32-4.0) uIU/mL Coronavirus (PCR) NEGATIVE (Negative) Influenza Type A (PCR) NEGATIVE (Negative) Influenza Type B (PCR) NEGATIVE (Negative) RSV RNA Qual (PCR) NEGATIVE (Negative) 10/15/20 10/15/20 Range/Units 18:31 21:32 WBC (4.8-10.8) X10*3/uL RBC (4.60-5.80) X10*6/uL Hgb (14.0-18.0) g/dl Hct (42-52) % MCV (80-98) fL MCH (27.0-33.0) pg MCHC (31.0-36.0) g/dl RDW (11.0-16.0) % Plt Count (160-400) X10*3/uL MPV (9.4-12.4) fL Immature Gran % (Auto) (0.0-0.4) % Neut % (Auto) (45-73) % Lymph % (Auto) (20-40) % [place] % (Auto) (2-11) % Eos % (Auto) (0-4) % Baso % (Auto) (0-2) % Lymph # (Auto) (1.2-4.9) X10*3/uL [place] # (Auto) (0.1-1.2) X10*3/uL Eos # (Auto) (0.0-0.4) X10*3/uL Baso # (Auto) (0.0-0.2) X10*3/uL Abs Immat Gran (auto) (0.00-0.03) X10*3/uL Absolute Neuts (auto) (2.0-8.3) X10*3/uL Absolute Nucleated RBC (0.0-0.012) X10*3/uL Nucleated RBC % (auto) (0.0-0.2) /100WBC PT (10.8-13.0) SEC INR (0.9-1.1) APTT (24.1-38.0) SEC D-Dimer NG/ML Sodium (135-145) mmol/L Potassium (3.3-5.1) mmol/l Chloride (96-108) mmol/L Carbon Dioxide (22-29) mmol/L Anion Gap (12-20) BUN (9-16) mg/dL Creatinine (0.5-1.4) mg/dL Estim Creat Clear Calc Estimated GFR Random Glucose (60-115) mg/dL Calcium (8.4-10.2) mg/dL Ferritin (20-250) ng/mL Total Bilirubin (0.0-1.0) mg/dL Direct Bilirubin (0.0-0.5) mg/dL AST (5-37) U/L ALT (0-40) U/L Alkaline Phosphatase (39-117) U/L Lactate Dehydrogenase (118-273) U/L Troponin I High Sens 5.9 (<3.5-35.0) ng/L B-Natriuretic Peptide (<100) pg/mL Total Protein (6.5-8.0) g/dL Albumin (3.5-5.0) g/dL Lipase 53 (8-78) U/L Procalcitonin ng/mL TSH 1.11 (0.32-4.0) uIU/mL Coronavirus (PCR) (Negative) Influenza Type A (PCR) (Negative) Influenza Type B (PCR) (Negative) RSV RNA Qual (PCR) (Negative) ECG Data ECG #1: Interpretation: Normal sinus rhythm. Ventricular rate 76. Pr interval 154. QRS duration 86. Negative STEMI. Discharge Plan Discharge Clinical Impression: Chest pain due to GERD Patient Disposition: Home, Self-Care Instructions: Chest Pain (ED), Gastroesophageal Reflux Disease (ED) Additional Instructions: Continue taking your GERD medication. Return to the ED immediately for any swelling of lower extremities, calf pain, coughing up blood, chest pain, shortness of breath, or any other concerning symptoms. Please follow-up with PCP Prescriptions: No Action aspirin [Adult Low Dose Aspirin] 81 mg tablet,delayed release (DR/EC) 81 mg PO DAILY 90 Days Qty: 90 RF: 1 nifedipine 30 mg tablet extended release 24hr 30 mg PO DAILY 90 Days Qty: 90 RF: 1 simvastatin 40 mg tablet 40 mg PO BEDTIME 30 Days Qty: 30 RF: 11 losartan 50 mg tablet 50 mg PO DAILY 30 Days Qty: 30 RF: 10 polyethylene glycol 3350 [Miralax] 17 gram/dose powder 17 g PO DAILY 30 Days Qty: 510 RF: 10 tamsulosin 0.4 mg capsule 0.4 mg PO BEDTIME 30 Days Qty: 30 RF: 6 (DME) lancets [FreeStyle Lancets] 28 gauge misc See Rx Instructions .ROUTE .MEDSUPPLY Qty: 100 RF: 5 metoprolol succinate 25 mg tablet extended release 24 hr 25 mg PO BEDTIME Qty: 28 RF: 4 ferrous sulfate 325 mg (65 mg iron) tablet 325 mg PO DAILY Qty: 28 RF: 4 hydralazine 50 mg tablet 50 mg PO TID Qty: 84 RF: 5 Levemir FlexTouch U-100 Insuln 100 unit/mL (3 mL) insulin pen 58 unit subcut BID 30 Days Qty: 45 RF: 3 sennosides [Evac-U-Gen (sennosides)] 8.6 mg tablet 8.6 mg PO BID Qty: 60 RF: 2 ergocalciferol (vitamin D2) [Vitamin D2] 1,250 mcg (50,000 unit) capsule 1,250 mcg PO .COMPLEX Qty: 1 RF: 2 Trulicity 1.5 mg/0.5 mL pen injector 1.5 mg subcut QWEEK 28 Days Qty: 2 RF: 3 pen needle, diabetic [Easy Touch] 31 gauge x 5/16 needle 1 ea subcut TID Qty: 100 RF: 11 meclizine 25 mg tablet 25 mg PO TID Qty: 84 RF: 0 pen needle, diabetic [Easy Touch] 31 gauge x 5/16 needle 1 ea subcut TID 30 Days Qty: 100 RF: 6 sucralfate 1 gram tablet 1 g PO BID Qty: 60 RF: 0 erythromycin 5 mg/gram (0.5 %) ointment 0.5 inch ophthalmic (eye) BID 10 Days Qty: 3.5 RF: 0 risperidone [Risperdal] 0.5 mg tablet 0.5 mg PO BID RF: 0 trazodone 50 mg tablet 50 mg PO DAILY RF: 0 lactulose [Enulose] 10 gram/15 mL solution 10 g PO DAILY RF: 0 acetaminophen [Tylenol] 325 mg tablet 325 mg PO Q6H PRN (Reason: temp, headache or general discomfort) RF: 0 hydrocortisone valerate 0.2 % cream 1 applic topical BID PRNRF: 0 ursodiol 300 mg capsule 300 mg PO BID RF: 0 ascorbic acid (vitamin C) 500 mg capsule PO BID RF: 0 magnesium oxide [MagOx] 400 mg (241.3 mg magnesium) tablet 400 mg PO DAILY PRN (Reason: constipation) RF: 0 lorazepam [Ativan] 0.5 mg tablet 0.5 mg PO DAILY PRNRF: 0 famotidine [Pepcid] 20 mg tablet 20 mg PO BID PRN (Reason: acid reflux) 90 Days Qty: 90 RF: 1 Jardiance 10 mg tablet 10 mg PO QAM Qty: 30 RF: 3 insulin lispro [Humalog KwikPen Insulin] 100 unit/mL insulin pen 4 - 12 unit subcut BID 30 Days Qty: 15 RF: 3 Interventions: ED Discharge Assessment Last Done: 10/16/20 00:54 Discharge Date/Time: 10/16/20 00:55 Print Language: Slovenian
--- NOTE | 2020-10-15 17:24 | XR_ITS ---
EXAMINATION: XR CHEST CLINICAL INFORMATION: Left-sided chest pain COMPARISON: 07/22/2020 TECHNIQUE: Frontal view of the chest was obtained. FINDINGS: No significant abnormality is noted involving the heart, lungs, mediastinum, bony thorax or soft tissues. Again seen is scarring at/atelectasis at the left lung base. An old healed rib fracture left posterior third rib is again noted. XR/XR chest 1V IMPRESSION: No acute intrathoracic disease
--- NOTE | 2020-10-15 17:26 | ECG_ITS ---
Test Reason : CHEST PAIN Blood Pressure : / mmHG Vent. Rate : 076 BPM Atrial Rate : 076 BPM P-R Int : 154 ms QRS Dur : 086 ms QT Int : 390 ms P-R-T Axes : 044 -15 032 degrees QTc Int : 438 ms Normal sinus rhythm Normal ECG When compared to the previous EKG of No significant changes seen Referred By: Devaughn Khan Electronically Signed By:SYED ORTIZ MD
[2020-10-15 18:00] VITALS: BP 133/75; PULSE 59; RESP 16; TEMP 36.4; O2SAT 99
[2020-10-15] MEDS: Lidocaine HCl Viscous 2 % 15 ML SOLUTION MUCOUS MEM (18:20)
[2020-10-15] MEDS: Famotidine/PF 20 MG/2 ML VIAL IVPUSH (18:20)
[2020-10-15] MEDS: PHENobarb/Hyoscy/Atropine/Scop 10 ML ELIXIR PO (18:21)
[2020-10-15 18:39] LABS: MANUAL DIFF FLAG NO
[2020-10-15 18:55] LABS: Prothrombin Time 11.5 SEC (10.8-13.0)
[2020-10-15 18:57] LABS: Partial Thromboplastin Time 34.7 SEC (24.1-38.0)
[2020-10-15 18:58] LABS: D Dimer 207 NG/ML
[2020-10-15 19:06] LABS: Basophils Absolute Auto 0.1 X10*3/uL (0.0-0.2); Basophils Percent Auto 0.6 % (0-2); Eosinophils Absolute Auto 0.3 X10*3/uL (0.0-0.4); Hematocrit 36.9 % (42-52); Hemoglobin 12.2 g/dl (14.0-18.0); Imm Gran Abs Auto 0.03 X10*3/uL (0.00-0.03); Imm Gran Pct Auto 0.3 % (0.0-0.4); Lymphocytes Absolute Auto 2.8 X10*3/uL (1.2-4.9); Lymphocytes Percent Auto 27.3 % (20-40); Mean Corpuscular HGB Conc 33.1 g/dl (31.0-36.0); Mean Corpuscular Hemoglobin 28.8 pg (27.0-33.0); Mean Platelet Volume 10.8 fL (9.4-12.4); Monocytes Absolute Auto 0.9 X10*3/uL (0.1-1.2); Monocytes Percent Auto 8.4 % (2-11); Neutrophils Absolute Auto 6.3 X10*3/uL (2.0-8.3); Neutrophils Percent Auto 60.4 % (45-73); Platelet Count 231 X10*3/uL (160-400); Red Blood Count 4.24 X10*6/uL (4.60-5.80); Red Cell Distribution Width 12.1 % (11.0-16.0); White Blood Count 10.3 X10*3/uL (4.8-10.8)
[2020-10-15 19:10] LABS: Lipase 53 U/L (8-78)
[2020-10-15 19:13] LABS: Alanine Aminotransferase 8 U/L (0-40); Albumin Level 4.2 g/dL (3.5-5.0); Alkaline Phosphatase 74 U/L (39-117); Anion Gap 14 (12-20); Aspartate Amino Transferase 9 U/L (5-37); Bilirubin Direct < 0.2 mg/dL (0.0-0.5); Bilirubin Total 0.2 mg/dL (0.0-1.0); Blood Urea Nitrogen 37 mg/dL (9-16); Calcium 9.3 mg/dL (8.4-10.2); Carbon Dioxide 25 mmol/L (22-29); Chloride 106 mmol/L (96-108); Estimated Glomerular Filt Rate 39; Glucose Random 154 mg/dL (60-115); Lactate Dehydrogenase 108 U/L (118-273); Potassium 4.7 mmol/l (3.3-5.1); Sodium 140 mmol/L (135-145); Total Protein 7.2 g/dL (6.5-8.0)
[2020-10-15 19:15] LABS: B Type Natriuretic Peptide < 10 pg/mL (<100); Troponin-I High Sensitivity 4.1 ng/L (<3.5-35.0)
[2020-10-15 19:19] LABS: Influenza A PCR NEGATIVE (Negative); Influenza B PCR NEGATIVE (Negative); Resp Syncy Virus RNA Qual PCR NEGATIVE (Negative); SARS COV2 PCR INHOUSE NEGATIVE (Negative)
[2020-10-15 19:29] LABS: Procalcitonin 0.02 ng/mL
[2020-10-15 19:32] LABS: Ferritin 251 ng/mL (20-250); Thyroid Stimulating Hormone 1.11 uIU/mL (0.32-4.0)
[2020-10-15 20:00] VITALS: BP 132/69; PULSE 53; RESP 16; TEMP 36.6; O2SAT 99
[2020-10-15 21:37] VITALS: BP 134/67; PULSE 53; RESP 18; TEMP 36.4
[2020-10-15 22:05] LABS: Troponin-I High Sensitivity 5.9 ng/L (<3.5-35.0)
== END 2020-10-16 00:55 | disposition home or self-care (01) ==
PROVIDERS: Physician Assistant; Emergency Provider Internal Medicine
DX: R07.9 Chest pain, unspecified (principal); K21.9 Gastro-esophageal reflux disease without esophagitis; Z87.891 Personal history of nicotine dependence; Z20.828 Contact with and (suspected) exposure to other viral communicable diseases; Z79.899 Other long term (current) drug therapy
CPT/HCPCS: 0241U; 36415; 71045; 80053; 80076; 82248; 82728; 83615; 83690; 83880; 84145; 84443; 84484; 85025; 85379; 85610; 85730; 93005; 96374; 99284

== ENCOUNTER 2020-10-31 00:33 | Emergency (ER) | payer MEDICAID, SELFPAY ==
[2020-10-31 00:46] VITALS: BP 124/62; BP 140/60; PULSE 70; PULSE 74; RESP 16; TEMP 36.4; O2SAT 97; BMI 28.7
[2020-10-31] MEDS: Lidocaine HCl 2 % MPF 5 ML VIAL 10 ML INFILTRATI (00:57)
--- NOTE | 2020-10-31 01:12 | ED.GENADULT ---
HPI - General Adult General Chief complaint: General Medical Stated complaint: bleeding in the groin area Time Seen by Provider: 10/31/20 00:36 Source: EMS Mode of arrival: EMS Limitations: other (Intellectual disability) History of Present Illness HPI narrative: Patient comes to the emergency room from a residential. Patient has a large skin tag in the right side of the groin, patient states that he was sleeping, started scratching it, started bleeding. Patient does not know how long the skin tag has been there. Staff from the residential is here and they states that they do know the patient very well and they do not know how long he has had this skin tag. Patient states the bleeding started tonight. Related Data Home Medications Medication Instructions Recorded Confirmed acetaminophen 325 mg tablet 325 mg PO Q6H PRN tab 07/24/20 10/02/20 ascorbic acid (vitamin C) 500 mg mg PO BID cap 07/24/20 10/02/20 capsule hydrocortisone valerate 0.2 % 1 applic TOPICAL BID PRN 07/24/20 10/02/20 topical cream lactulose 10 gram/15 mL oral 10 g PO DAILY 07/24/20 10/02/20 solution lorazepam 0.5 mg tablet 0.5 mg PO DAILY PRN 07/24/20 10/02/20 magnesium oxide 400 mg (241.3 mg 400 mg PO DAILY PRN 07/24/20 10/02/20 magnesium) tablet risperidone 0.5 mg tablet 0.5 mg PO BID 07/24/20 10/02/20 trazodone 50 mg tablet 50 mg PO DAILY 07/24/20 10/02/20 ursodiol 300 mg capsule 300 mg PO BID 07/24/20 10/02/20 Previous Rx's Medication Instructions Recorded aspirin 81 mg tablet,delayed 81 mg PO DAILY 90 Days #90 tab 07/09/20 release nifedipine 30 mg tablet,extended 30 mg PO DAILY 90 Days #90 tab 07/09/20 release 24 hr famotidine 20 mg tablet 20 mg PO BID PRN 90 Days #90 tab 07/24/20 losartan 50 mg tablet 50 mg PO DAILY 30 Days #30 tab 07/30/20 polyethylene glycol 3350 17 17 g PO DAILY 30 Days #510 g 07/30/20 gram/dose oral powder simvastatin 40 mg tablet 40 mg PO BEDTIME 30 Days #30 tab 07/30/20 tamsulosin 0.4 mg capsule 0.4 mg PO BEDTIME 30 Days #30 cap 07/30/20 lancets 28 gauge #100 ea 07/31/20 empagliflozin 10 mg tablet 10 mg PO QAM #30 tab 08/01/20 insulin lispro 100 unit/mL 4 - 12 unit SUBCUT BID 30 Days #15 08/01/20 subcutaneous pen ml sucralfate 1 g PO BID #60 tab 08/04/20 ferrous sulfate 325 mg (65 mg 325 mg PO DAILY #28 tab 08/06/20 iron) tablet insulin detemir U-100 100 unit/mL 58 unit SUBCUT BID 30 Days #45 ml 08/06/20 (3 mL) subcutaneous pen metoprolol succinate 25 mg 25 mg PO BEDTIME #28 tab 08/06/20 tablet,extended release 24 hr ergocalciferol (vitamin D2) 1,250 1,250 mcg PO .COMPLEX #1 cap 08/26/20 mcg (50,000 unit) capsule sennosides 8.6 mg tablet 8.6 mg PO BID #60 tab 08/26/20 dulaglutide 1.5 mg/0.5 mL 1.5 mg SUBCUT QWEEK 28 Days #2 ml 09/10/20 subcutaneous pen injector erythromycin 5 mg/gram (0.5 %) eye 0.5 inch OPHTHALMIC (EYE) BID 10 09/20/20 ointment Days #3.5 g pen needle, diabetic 31 gauge x 1 ea SUBCUT TID 30 Days #100 ea 10/03/20 5 blood sugar diagnostic 1 strip MISCELLANEOUS TID 30 Days 10/18/20 #100 ea meclizine 25 mg tablet 25 mg PO TID #84 tab 10/22/20 pen needle, diabetic 31 gauge x 1 ea SUBCUT TID #100 ea 10/22/2002/16 hydralazine 50 mg tablet 50 mg PO BID #60 tab 10/23/20 Allergies Allergy/AdvReac Type Severity Reaction Status Date / Time amlodipine [From [facility]] Allergy Severe due to Verified 10/23/20 12:48 poor renal function ibuprofen Allergy Severe 2/2 renal Verified 10/23/20 12:48 function Review of Systems Review of Systems: Constitutional : No Weight loss, No Fever, No Chills, No Night Sweats, No Fatigue, No Malaise ENT/Mouth : No Hearing loss, No Ear Pain, No Nasal Congestion, No Sinus Pain, No Hoarseness, No sore throat, No Rhinorrhea, No Swallowing Difficulty Eyes: No Eye Pain, No Swelling, No Redness, No Foreign Body, No Discharge, No Vision Changes Cardiovascular : No Chest Pain, No SOB, No Dyspnea on Exertion, No Orthopnea, No Edema, No Palpitations Respiratory : No Cough, No Sputum, No Wheezing, No Smoke Exposure, No Dyspnea Gastrointestinal : No Nausea, No Vomiting, No Diarrhea, No Constipation, No abdominal Pain, No Hematochezia, No Melena Genitourinary : no irregular bleeding, No Dysuria, No Urinary Frequency, No Hematuria, No Urinary Incontinence, No Urgency, No Flank Pain, No Urinary Flow Changes, No Hesitancy Musculoskeletal : No joint pain, No Myalgias, No Joint Swelling Skin : Large skin tag in the right groin Neuro : No Weakness, No Numbness, No Paresthesias, No Loss of Consciousness, No Dizziness, No Headache Psych : No Anxiety/Panic, No Depression, No SI/HI/AH/VH, No Social Issues, Heme/Lymph: No Bruising, No Bleeding,No Lymphadenopathy Endocrine : No Polyuria, No Polydipsia, No Temperature Intolerance PMFSH Past Medical History Medical History Anemia Aphagia Bronchitis Chest pain Chronic kidney disease, stage 3 CKD (chronic kidney disease) Constipation Diabetes GERD (gastroesophageal reflux disease) Hearing loss Hemiplegia HTN (hypertension) Hyperlipidemia Hyperlipidemia Hypertensive chronic kidney disease with stage 1 through stage 4 chronic kidney disease, or unspecified chronic kidney disease Preglaucoma Stroke Type 2 diabetes mellitus with chronic kidney disease Unsteady gait Vascular device, implant, or graft complication Vitamin D deficiency Vitamin D deficiency Surgical History History of exploratory laparotomy Family History Family History Father Myocardial infarction Mother Throat cancer Diabetes Family/Other FH: mental illness Social History Social History Alcohol intake: unknown Smoking Status: Former smoker Advance Directives: No Physical Exam Vital Signs: Vital Signs: Last Vital Signs Temp 97.5 F 10/31/20 00:46 Pulse 70 10/31/20 00:46 Resp 16 10/31/20 00:46 BP 140/60 H 10/31/20 00:46 Pulse Ox 97 10/31/20 00:46 Body Mass Index 28.7 Appearance: Alert. Oriented X3. No acute distress. Eyes: Pupils equal, round and reactive to light. ENT: Pharynx normal. Neck: Normal inspection. Neck supple. No lymph nodes noted. No crepitus CVS: Normal heart rate and rhythm. Pulses normal. Normal S1 and S2 Respiratory: No respiratory distress. Breath sounds normal. No Wheezing. No rales Abdomen: Soft and nontender. No rigidity. No distention. good BS x4 Skin: Skin warm and dry. Patient has a large skin tag in the right groin, bleeding and oozing from the middle, there are multiple pin point areas that are actively oozing blood Extremities: No lower extremity edema. No lower extremity edema. No Lacerations. No Rash Neuro: Oriented X 3. No motor deficit. No sensory deficit. Moving all extermities. No slurred speech. Course Course Course Narrative: I attempted to apply a stitch, however the tissue is very friable, continued bleeding and the stitch was ripping through the tissue. By inserting the needle from the suture, the bleeding worsened. Tranexamic acid was applied topically, as patient be controlled the bleeding, however the small pinpoint lesion started bleeding again. Silver nitrate was applied to the oozing sites in the middle, bleeding stopped. I discussed with the cash clerk that the patient needs to be seen by surgery, unclear if this lesion it is malignant or a vascular lesion. I discussed with the cash clerk, that the lesion is highly vascular, any small trauma can make it bleed Discharge Plan Discharge Clinical Impression: Hemorrhage of skin lesion Patient Disposition: Home, Self-Care Additional Instructions: Please make an appointment with General surgery. Please call today in the morning. If the bleeding recurs, you may put a gauze over the lesion, hold steady pressure for 10 minutes. If the bleeding cannot be controlled, please return to the emergency room. Please follow-up with your primary care physician tomorrow. If you have any worsening or new symptoms, please return to the emergency room or call 911 Prescriptions: No Action aspirin [Adult Low Dose Aspirin] 81 mg tablet,delayed release (DR/EC) 81 mg PO DAILY 90 Days Qty: 90 RF: 1 nifedipine 30 mg tablet extended release 24hr 30 mg PO DAILY 90 Days Qty: 90 RF: 1 simvastatin 40 mg tablet 40 mg PO BEDTIME 30 Days Qty: 30 RF: 11 losartan 50 mg tablet 50 mg PO DAILY 30 Days Qty: 30 RF: 10 polyethylene glycol 3350 [Miralax] 17 gram/dose powder 17 g PO DAILY 30 Days Qty: 510 RF: 10 tamsulosin 0.4 mg capsule 0.4 mg PO BEDTIME 30 Days Qty: 30 RF: 6 (DME) lancets [FreeStyle Lancets] 28 gauge misc See Rx Instructions .ROUTE .MEDSUPPLY Qty: 100 RF: 5 metoprolol succinate 25 mg tablet extended release 24 hr 25 mg PO BEDTIME Qty: 28 RF: 4 ferrous sulfate 325 mg (65 mg iron) tablet 325 mg PO DAILY Qty: 28 RF: 4 Levemir FlexTouch U-100 Insuln 100 unit/mL (3 mL) insulin pen 58 unit subcut BID 30 Days Qty: 45 RF: 3 sennosides [Evac-U-Gen (sennosides)] 8.6 mg tablet 8.6 mg PO BID Qty: 60 RF: 2 ergocalciferol (vitamin D2) [Vitamin D2] 1,250 mcg (50,000 unit) capsule 1,250 mcg PO .COMPLEX Qty: 1 RF: 2 Trulicity 1.5 mg/0.5 mL pen injector 1.5 mg subcut QWEEK 28 Days Qty: 2 RF: 3 pen needle, diabetic [Easy Touch] 31 gauge x 5/16 needle 1 ea subcut TID 30 Days Qty: 100 RF: 6 blood sugar diagnostic [FreeStyle Lite Strips] Strip 1 strip miscellaneous TID 30 Days Qty: 100 RF: 11 pen needle, diabetic [Easy Touch] 31 gauge x 5/16 needle 1 ea subcut TID Qty: 100 RF: 11 meclizine 25 mg tablet 25 mg PO TID Qty: 84 RF: 0 sucralfate 1 gram tablet 1 g PO BID Qty: 60 RF: 0 erythromycin 5 mg/gram (0.5 %) ointment 0.5 inch ophthalmic (eye) BID 10 Days Qty: 3.5 RF: 0 risperidone [Risperdal] 0.5 mg tablet 0.5 mg PO BID RF: 0 trazodone 50 mg tablet 50 mg PO DAILY RF: 0 lactulose [Enulose] 10 gram/15 mL solution 10 g PO DAILY RF: 0 acetaminophen [Tylenol] 325 mg tablet 325 mg PO Q6H PRN (Reason: temp, headache or general discomfort) RF: 0 hydrocortisone valerate 0.2 % cream 1 applic topical BID PRNRF: 0 ursodiol 300 mg capsule 300 mg PO BID RF: 0 ascorbic acid (vitamin C) 500 mg capsule PO BID RF: 0 magnesium oxide [MagOx] 400 mg (241.3 mg magnesium) tablet 400 mg PO DAILY PRN (Reason: constipation) RF: 0 lorazepam [Ativan] 0.5 mg tablet 0.5 mg PO DAILY PRNRF: 0 famotidine [Pepcid] 20 mg tablet 20 mg PO BID PRN (Reason: acid reflux) 90 Days Qty: 90 RF: 1 hydralazine 50 mg tablet 50 mg PO BID Qty: 60 RF: 6 Jardiance 10 mg tablet 10 mg PO QAM Qty: 30 RF: 3 insulin lispro [Humalog KwikPen Insulin] 100 unit/mL insulin pen 4 - 12 unit subcut BID 30 Days Qty: 15 RF: 3 Referrals: Marky Urbina MD [Physician] - 1 day
[2020-10-31] MEDS: Tranexamic Acid 1,000 MG in 0.9 % Sodium Chloride 50 ML 360 MG IV (01:14)
--- NOTE | 2020-10-31 01:14 | PC.NURSE ---
TRANEXEMIC ACID APPLIED TOPICALY TO SITE BY . PT DID NOT RECEIVE TXA BT INFUSION.
[2020-10-31 01:30] VITALS: BP 123/71; PULSE 62; RESP 16; O2SAT 98
--- NOTE | 2020-10-31 01:34 | PC.NURSE ---
BLEEDING CONTROLLED BY MD WITH TOPICAL MEDICATIONS. DRESSING APPLIED, STAFF AT BEDSIDE FROM SKILLED NURSING INSTRUCTED TO REMOVE DRESSING TOMORROW. PT INSTRUCTED TO LEAVE AREA ALONE, SPECIFICALLY NOT TO SCRATCH SKIN.
[2020-10-31] MEDS: Silver Nitrate Applicator STICK..EA. 5 APPL TOPICAL (02:28)
--- NOTE | 2020-10-31 02:41 | PC.NURSE ---
bleeding controlled, bandage still dry 30 minutes following application. pt has a visiting RN in place and next visit is tmrw morning. instructions explained 2-3 times by both provider and RN to hold direct pressure with 4x4 for bleeding. if bleeding does not stop, return to er. visiting rn will care for site x2 daily.
[2020-10-31 02:43] VITALS: BP 134/82; PULSE 78; RESP 16; O2SAT 98
== END 2020-10-31 02:45 | disposition home or self-care (01) ==
PROVIDERS: Emergency Provider Emergency Medicine
DX: R23.3 Spontaneous ecchymoses (principal); E11.22 Type 2 diabetes mellitus with diabetic chronic kidney disease; I12.9 Hypertensive chronic kidney disease with stage 1 through stage 4 chronic kidney disease, or unspecified chronic kidney disease; N18.30 Chronic kidney disease, stage 3 unspecified; Z86.73 Personal history of transient ischemic attack (TIA), and cerebral infarction without residual deficits
CPT/HCPCS: 99284

== ENCOUNTER → 2020-11-01 09:32 | Outpatient (BNVA) | payer MEDICAID, SELFPAY | PROVIDERS: PCP Hospitalist; Visit Provider Nurse Practitioner Gerontology ==

== ENCOUNTER → 2020-11-06 14:27 | Outpatient (BNVA) | payer MEDICAID, SELFPAY | PROVIDERS: PCP Hospitalist; Visit Provider Surgery | DX: L98.9 Disorder of the skin and subcutaneous tissue, unspecified (principal) | CPT/HCPCS: 99202 ==

== ENCOUNTER 2020-11-26 11:08 | Outpatient (REF) | payer MEDICAID, SELFPAY ==
[2020-11-26 13:56] LABS: Iron 53 mcg/dL (45-160); Percent Iron Saturation 18 % (15-50); Total Iron Binding Capacity 302 mcg/dL (228-428); Unsaturated Iron Binding 249 ug/dL
== END 2020-11-26 11:09 | disposition home or self-care (01) ==
LOC: HO.WFDLDS 11:08
PROVIDERS: Visit Provider Hospitalist
DX: N18.30 Chronic kidney disease, stage 3 unspecified (principal); D63.1 Anemia in chronic kidney disease
CPT/HCPCS: 36415; 83540

== ENCOUNTER 2020-11-27 13:11 | Outpatient (REF) | payer MEDICAID, SELFPAY ==
[2020-11-27 12:42] VITALS: BP 148/70; PULSE 71; RESP 16; O2SAT 99; BMI 32.7
--- NOTE | 2020-11-27 13:59 | W.PM.OPN ---
Operative Note Operative Note Date of Service: 11/27/20 Narrative: Preop diagnosis: Large skin lesion, right groin Postop diagnosis: The same Procedure: excision of large skin lesion, right groin under local anesthesia Surgeon: Marky Urbina MD The patient is a 60-year-old male was seen in the office because of a wide lesion on the right groin, with periodic bleeding. This was 7 cm in widest dimension, irregular in shape, with fronding, hypergranulation tissue, and irregular borders. In view of bleeding, increase in size, was scheduled for excision. He had given consent for excision and appeared to understand the risks, benefits, and alternatives. I had discussed this with his healthcare proxy as well. The patient is brought to the minor procedure room and placed supine with both thighs abducted to expose the right groin and achieve good exposure. The area of skin lesion was prepped and draped. Again, this was a wide, irregular lesion as described above. I infiltrated the planned line incision with lidocaine 1%. I marked this planned line of sedation to make sure that we were including margins of normal skin. I made the incision using blade 15. This extended all around the incision and care down past the skin and part of subcutaneous layer. We proceeded to excise the entire lesion and this was sent as specimen. An area with what appeared to be residual lesion was additionally excised. I then closed the incision multiple nylon interrupted sutures. The area of excision was about 8 cm in length and was about 4.5 cm wide. He tolerated the procedure well. There were no complications noted. Dressings were applied. He was given wound care instructions. He will be seen in the office for removal sutures in about 2-3 weeks.
== END 2020-11-27 13:12 | disposition home or self-care (01) ==
LOC: HO.MS 13:11
PROVIDERS: Visit Provider Surgery
PROC: (CPT 11606; principal; 2020-11-27 13:00)
DX: C76.51 Malignant neoplasm of right lower limb (principal); E11.22 Type 2 diabetes mellitus with diabetic chronic kidney disease; I12.9 Hypertensive chronic kidney disease with stage 1 through stage 4 chronic kidney disease, or unspecified chronic kidney disease; N18.30 Chronic kidney disease, stage 3 unspecified; E55.9 Vitamin D deficiency, unspecified; Z79.4 Long term (current) use of insulin; Z79.899 Other long term (current) drug therapy
CPT/HCPCS: 11606; 88305

== ENCOUNTER 2020-12-02 16:46 | Emergency (ER) | payer MEDICAID, SELFPAY ==
--- NOTE | ~2020-12-02 | CT_ITS ---
EXAMINATION: CT PELVIS WITHOUT CONTRAST CLINICAL INFORMATION: R/o R inguinal extravasation, s/p lesion excision COMPARISON: CT scan abdomen pelvis 07/28/2020 TECHNIQUE: Helical scanning was performed with submillimeter collimation through the pelvis. Sagittal and coronal multiplanar 2-D reconstructions were obtained. This CT examination was performed using dose optimization techniques as appropriate, variously including the following: *Automated exposure control *Adjustment of mA and/or kV according to patient size (this includes techniques or standardized protocols for targeted exams where dose is matched to indication/reason for exam; i.e. extremities or head) *Use of iterative reconstruction technique DLP: 437 mGy-cm FINDINGS: There is induration in the subcutaneous tissue in the right inguinal region. There is a soft tissue density measuring 4 x 0.7 x 2 cm the right inguinal crease. No air collections or foreign body. This collection tracks to the skin line. Axial image 384/491 series 3. History is of recent lesion excision. This may therefore be postoperative but cannot exclude a small abscess. There are a few air droplets in the subcutaneous tissue in the right side of the mid abdomen middle lobe of the umbilicus likely from iatrogenic injections. No fluid collections around these air droplets. No acute change of the bowel. Moderate volume of stool in the colonic bowel loops. No bowel wall thickening or edema or obstruction. Bladder is unremarkable. Seminal vesicle are normal. Prostate is prominent measuring 5 cm bilateral. Redemonstrated is the atretic IVC and iliac veins. High density material tracks along the course of the right and left iliac vein and inferior vena cava. There are prominent venous collaterals in the subcutaneous tissue of the abdominal wall. Patient has an IVC filter which is not imaged on this study. There are vascular calcification of the iliac arteries. No aneurysm. No significant lymphadenopathy. There is no free fluid in the pelvis. No osseous abnormality. CT/CT pelvis wo con IMPRESSION: Induration and fluid collection in the right inguinal crease. This does communicate to the skin line. This may be postoperative given history of lesion excision. Clinically correlate.
[2020-12-02 17:01] VITALS: BP 126/59; BP 142/85; PULSE 79; PULSE 91; RESP 22; TEMP 36.8; O2SAT 97; BMI 33.0
--- NOTE | 2020-12-02 17:26 | ED_ITS ---
HPI - Skin/Abscess/Foreign Bdy General Chief complaint: Skin/Abscess/Foreign Body Stated complaint: bleeding Time Seen by Provider: 12/02/20 17:19 Source: EMS and other (care home staff) Mode of arrival: other Limitations: no limitations History of Present Illness HPI narrative: Patient comes to the emergency room via EMS from a shelter. On November 27, patient had a lesion removed from his right inguinal area, diagnosed with invasive squamous cell carcinoma. Patient tolerated well the procedure and was discharged home. The staff at the shelter reports that the patient has had minimal intermittent bleeding since the , however today, the patient started having more significant bleeding from the surgical site. Patient is a poor historian, currently reporting localized pain. Related Data Home Medications Medication Instructions Recorded Confirmed ascorbic acid (vitamin C) 500 mg mg PO BID cap 07/24/20 11/06/20 capsule hydrocortisone valerate 0.2 % 1 applic TOPICAL BID PRN 07/24/20 11/06/20 topical cream lactulose 10 gram/15 mL oral 10 g PO DAILY 07/24/20 11/06/20 solution lorazepam 0.5 mg tablet 0.5 mg PO DAILY PRN 07/24/20 11/06/20 magnesium oxide 400 mg (241.3 mg 400 mg PO DAILY PRN 07/24/20 11/06/20 magnesium) tablet risperidone 0.5 mg tablet 0.5 mg PO BID 07/24/20 11/06/20 trazodone 50 mg tablet 50 mg PO DAILY 07/24/20 11/06/20 ursodiol 300 mg capsule 300 mg PO BID 07/24/20 11/06/20 sucralfate 1 gram tablet 1 g PO QID tab 11/01/20 11/06/20 Previous Rx's Medication Instructions Recorded aspirin 81 mg tablet,delayed 81 mg PO DAILY 90 Days #90 tab 07/09/20 release nifedipine 30 mg tablet,extended 30 mg PO DAILY 90 Days #90 tab 07/09/20 release 24 hr famotidine 20 mg tablet 20 mg PO BID PRN 90 Days #90 tab 07/24/20 losartan 50 mg tablet 50 mg PO DAILY 30 Days #30 tab 07/30/20 polyethylene glycol 3350 17 17 g PO DAILY 30 Days #510 g 07/30/20 gram/dose oral powder simvastatin 40 mg tablet 40 mg PO BEDTIME 30 Days #30 tab 07/30/20 tamsulosin 0.4 mg capsule 0.4 mg PO BEDTIME 30 Days #30 cap 07/30/20 lancets 28 gauge #100 ea 07/31/20 insulin lispro 100 unit/mL 4 - 12 unit SUBCUT BID 30 Days #15 08/01/20 subcutaneous pen ml insulin detemir U-100 100 unit/mL 58 unit SUBCUT BID 30 Days #45 ml 08/06/20 (3 mL) subcutaneous pen metoprolol succinate 25 mg 25 mg PO BEDTIME #28 tab 08/06/20 tablet,extended release 24 hr dulaglutide 1.5 mg/0.5 mL 1.5 mg SUBCUT QWEEK 28 Days #2 ml 09/10/20 subcutaneous pen injector pen needle, diabetic 31 gauge x 1 ea SUBCUT TID 30 Days #100 ea 10/03/2002/16 blood sugar diagnostic 1 strip MISCELLANEOUS TID 30 Days 10/18/20 #100 ea pen needle, diabetic 31 gauge x 1 ea SUBCUT TID #100 ea 10/22/20 5 hydralazine 50 mg tablet 50 mg PO BID #60 tab 10/23/20 ergocalciferol (vitamin D2) 1,250 1,250 mcg PO .COMPLEX #1 cap 11/18/20 mcg (50,000 unit) capsule sennosides 8.6 mg tablet 8.6 mg PO BID #60 tab 11/18/20 empagliflozin 10 mg tablet 10 mg PO QAM #28 tab 11/19/20 meclizine 25 mg tablet 25 mg PO TID #84 tab 11/21/20 acetaminophen 325 mg tablet 325 mg PO Q6H PRN 42 Days #90 tab 11/27/20 Allergies Allergy/AdvReac Type Severity Reaction Status Date / Time amlodipine [From [facility]] Allergy Severe due to Verified 11/26/20 10:44 poor renal function ibuprofen Allergy Severe 2/2 renal Verified 11/26/20 10:44 function Review of Systems Review of Systems: Constitutional : No Weight loss, No Fever, No Chills, No Night Sweats, No Fatigue, No Malaise ENT/Mouth : No Hearing loss, No Ear Pain, No Nasal Congestion, No Sinus Pain, No Hoarseness, No sore throat, No Rhinorrhea, No Swallowing Difficulty Eyes: No Eye Pain, No Swelling, No Redness, No Foreign Body, No Discharge, No Vision Changes Cardiovascular : No Chest Pain, No SOB, No Dyspnea on Exertion, No Orthopnea, No Edema, No Palpitations Respiratory : No Cough, No Sputum, No Wheezing, No Smoke Exposure, No Dyspnea Gastrointestinal : No Nausea, No Vomiting, No Diarrhea, No Constipation, No abdominal Pain, No Hematochezia, No Melena Genitourinary : no irregular bleeding, No Dysuria, No Urinary Frequency, No Hematuria, No Urinary Incontinence, No Urgency, No Flank Pain, No Urinary Flow Changes, No Hesitancy Musculoskeletal : No joint pain, No Myalgias, No Joint Swelling. Skin : Right inguinal surgical site vomiting blood, status post lesion removal November 27 2020 Neuro : No Weakness, No Numbness, No Paresthesias, No Loss of Consciousness, No Dizziness, No Headache Psych : No Anxiety/Panic, No Depression, No SI/HI/AH/VH, No Social Issues, Heme/Lymph: No Bruising, No Bleeding,No Lymphadenopathy Endocrine : No Polyuria, No Polydipsia, No Temperature Intolerance [facility] Past Medical History Medical History Anemia Aphagia Bronchitis Chest pain Chronic kidney disease, stage 3 CKD (chronic kidney disease) Constipation Diabetes GERD (gastroesophageal reflux disease) Hearing loss Hemiplegia HTN (hypertension) Hyperlipidemia Hyperlipidemia Hypertensive chronic kidney disease with stage 1 through stage 4 chronic kidney disease, or unspecified chronic kidney disease Preglaucoma Skin lesion Stroke Type 2 diabetes mellitus with chronic kidney disease Unsteady gait Vascular device, implant, or graft complication Vitamin D deficiency Vitamin D deficiency Surgical History History of exploratory laparotomy Family History Family History Father Myocardial infarction Mother Throat cancer Diabetes Family/Other FH: mental illness Brother In good health Sister In good health Sister In good health Daughter In good health Social History Social History Alcohol intake: unknown Smoking Status: Former smoker Advance Directives: Yes Advance Directives on File: Yes Advance Directives Date on File: 12/02/20 Physical Exam Vital Signs: Vital Signs: Last Vital Signs Temp 98 F 12/02/20 20:00 Pulse 78 12/02/20 20:00 Resp 18 12/02/20 20:00 BP 138/67 12/02/20 20:00 Pulse Ox 94 12/02/20 20:00 Body Mass Index 33.0 Appearance: Alert. Oriented X3. No acute distress. Eyes: Pupils equal, round and reactive to light. ENT: Pharynx normal. Neck: Normal inspection. Neck supple. No lymph nodes noted. No crepitus CVS: Normal heart rate and rhythm. Pulses normal. Normal S1 and S2 Respiratory: No respiratory distress. Breath sounds normal. No Wheezing. No rales Abdomen: Soft and nontender. No rigidity. No distention. good BS x4 Skin: Skin warm and dry. At the inguinal area, there is bleeding through the incisional site and draining serosanguineous fluid, does not seem infected, patient states he has tenderness around the surgical site, into the thigh and towards the scrotum Extremities: No lower extremity edema. No lower extremity edema. No Lacerations. No Rash Neuro: Oriented X 3. No motor deficit. No sensory deficit. Moving all extermities. No slurred speech. Course Course Course Narrative: I discussed CT scan and labs with the patient's cst. After applying pressure, the patient has no bloody drainage, however he still has scant serosanguineous drainage. Patient will be going to Dr. Wendy phan'office tomorrow for follow-up MDM - Skin/Abscess/Foreign Bdy Lab Data Result diagrams: 12/02/20 17:59 12/02/20 17:59 Labs: Lab Results 12/02/20 12/02/20 Range/Units 17:59 17:59 WBC 10.6 (4.8-10.8) X10*3/uL RBC 4.15 L (4.60-5.80) X10*6/uL Hgb 11.7 L (14.0-18.0) g/dl Hct 35.8 L (42-52) % MCV 86.3 (80-98) fL MCH 28.2 (27.0-33.0) pg MCHC 32.7 (31.0-36.0) g/dl RDW 12.0 (11.0-16.0) % Plt Count 242 (160-400) X10*3/uL MPV 10.6 (9.4-12.4) fL Immature Gran % (Auto) 0.3 (0.0-0.4) % Neut % (Auto) 58.3 (45-73) % Lymph % (Auto) 28.3 (20-40) % Waller % (Auto) 9.3 (2-11) % Eos % (Auto) 3.3 (0-4) % Baso % (Auto) 0.5 (0-2) % Lymph # (Auto) 3.0 (1.2-4.9) X10*3/uL Waller # (Auto) 1.0 (0.1-1.2) X10*3/uL Eos # (Auto) 0.4 (0.0-0.4) X10*3/uL Baso # (Auto) 0.1 (0.0-0.2) X10*3/uL Abs Immat Gran (auto) 0.03 (0.00-0.03) X10*3/uL Absolute Neuts (auto) 6.2 (2.0-8.3) X10*3/uL Absolute Nucleated RBC 0.000 (0.0-0.012) X10*3/uL Nucleated RBC % (auto) 0.0 (0.0-0.2) /100WBC Sodium 142 (135-145) mmol/L Potassium 4.6 (3.3-5.1) mmol/L Chloride 107 (96-108) mmol/L Carbon Dioxide 25 (22-29) mmol/L Anion Gap 15 (12-20) BUN 40 H (9-16) mg/dL Creatinine 2.01 H (0.5-1.4) mg/dL Estim Creat Clear Calc 42.7 Estimated GFR 34 Random Glucose 125 H (60-115) mg/dL Calcium 9.0 (8.4-10.2) mg/dL Imaging Data Pelvic CT: Radiologist's impression: FINDINGS: There is induration in the subcutaneous tissue in the right inguinal region. There is a soft tissue density measuring 4 x 0.7 x 2 cm the right inguinal crease. No air collections or foreign body. This collection tracks to the skin line. Axial image 384/491 series 3. History is of recent lesion excision. This may therefore be postoperative but cannot exclude a small abscess. There are a few air droplets in the subcutaneous tissue in the right side of the mid abdomen middle lobe of the umbilicus likely from iatrogenic injections. No fluid collections around these air droplets. No acute change of the bowel. Moderate volume of stool in the colonic bowel loops. No bowel wall thickening or edema or obstruction. Bladder is unremarkable. Seminal vesicle are normal. Prostate is prominent measuring 5 cm bilateral. Redemonstrated is the atretic IVC and iliac veins. High density material tracks along the course of the right and left iliac vein and inferior vena cava. There are prominent venous collaterals in the subcutaneous tissue of the abdominal wall. Patient has an IVC filter which is not imaged on this study. There are vascular calcification of the iliac arteries. No aneurysm. No significant lymphadenopathy. There is no free fluid in the pelvis. No osseous abnormality. CT/CT pelvis wo con IMPRESSION: Induration and fluid collection in the right inguinal crease. This does communicate to the skin line. This may be postoperative given history of lesion excision. Clinically correlate. Discharge Plan Discharge Clinical Impression: Postoperative bleeding from incision Patient Disposition: Xfer Other Transfer Details: care home Instructions: Postoperative Bleeding (ED) Additional Instructions: Please call Dr. Urbina' office in the morning, for follow-up please. Also, please follow-up with your primary care physician tomorrow. If you have any worsening or new symptoms, please return to the emergency room or call 911 Prescriptions: No Action aspirin [Adult Low Dose Aspirin] 81 mg tablet,delayed release (DR/EC) 81 mg PO DAILY 90 Days Qty: 90 RF: 1 nifedipine 30 mg tablet extended release 24hr 30 mg PO DAILY 90 Days Qty: 90 RF: 1 simvastatin 40 mg tablet 40 mg PO BEDTIME 30 Days Qty: 30 RF: 11 losartan 50 mg tablet 50 mg PO DAILY 30 Days Qty: 30 RF: 10 polyethylene glycol 3350 [Miralax] 17 gram/dose powder 17 g PO DAILY 30 Days Qty: 510 RF: 10 tamsulosin 0.4 mg capsule 0.4 mg PO BEDTIME 30 Days Qty: 30 RF: 6 (DME) lancets [FreeStyle Lancets] 28 gauge misc See Rx Instructions .ROUTE .MEDSUPPLY Qty: 100 RF: 5 metoprolol succinate 25 mg tablet extended release 24 hr 25 mg PO BEDTIME Qty: 28 RF: 4 Levemir FlexTouch U-100 Insuln 100 unit/mL (3 mL) insulin pen 58 unit subcut BID 30 Days Qty: 45 RF: 3 Trulicity 1.5 mg/0.5 mL pen injector 1.5 mg subcut QWEEK 28 Days Qty: 2 RF: 3 pen needle, diabetic [Easy Touch] 31 gauge x 5/16 needle 1 ea subcut TID 30 Days Qty: 100 RF: 6 blood sugar diagnostic [FreeStyle Lite Strips] Strip 1 strip miscellaneous TID 30 Days Qty: 100 RF: 11 pen needle, diabetic [Easy Touch] 31 gauge x 5/16 needle 1 ea subcut TID Qty: 100 RF: 11 ergocalciferol (vitamin D2) [Vitamin D2] 1,250 mcg (50,000 unit) capsule 1,250 mcg PO .COMPLEX Qty: 1 RF: 2 sennosides [Evac-U-Gen (sennosides)] 8.6 mg tablet 8.6 mg PO BID Qty: 60 RF: 2 empagliflozin [Jardiance] 10 mg tablet 10 mg PO QAM Qty: 28 RF: 2 meclizine 25 mg tablet 25 mg PO TID Qty: 84 RF: 0 acetaminophen [Tylenol] 325 mg tablet 325 mg PO Q6H PRN (Reason: temp, headache or general discomfort) 42 Days Qty: 90 RF: 1 risperidone [Risperdal] 0.5 mg tablet 0.5 mg PO BID RF: 0 trazodone 50 mg tablet 50 mg PO DAILY RF: 0 lactulose [Enulose] 10 gram/15 mL solution 10 g PO DAILY RF: 0 hydrocortisone valerate 0.2 % cream 1 applic topical BID PRNRF: 0 ursodiol 300 mg capsule 300 mg PO BID RF: 0 ascorbic acid (vitamin C) 500 mg capsule PO BID RF: 0 magnesium oxide [MagOx] 400 mg (241.3 mg magnesium) tablet 400 mg PO DAILY PRN (Reason: constipation) RF: 0 lorazepam [Ativan] 0.5 mg tablet 0.5 mg PO DAILY PRNRF: 0 famotidine [Pepcid] 20 mg tablet 20 mg PO BID PRN (Reason: acid reflux) 90 Days Qty: 90 RF: 1 hydralazine 50 mg tablet 50 mg PO BID Qty: 60 RF: 6 insulin lispro [Humalog KwikPen Insulin] 100 unit/mL insulin pen 4 - 12 unit subcut BID 30 Days Qty: 15 RF: 3 sucralfate 1 gram tablet 1 g PO QID RF: 0 Referrals: Marky Urbina MD [Physician] - 12/03/20 9:00 am
[2020-12-02 18:11] LABS: MANUAL DIFF FLAG NO
[2020-12-02 18:16] LABS: Basophils Absolute Auto 0.1 X10*3/uL (0.0-0.2); Basophils Percent Auto 0.5 % (0-2); Eosinophils Absolute Auto 0.4 X10*3/uL (0.0-0.4); Eosinophils Percent Auto 3.3 % (0-4); Hematocrit 35.8 % (42-52); Hemoglobin 11.7 g/dl (14.0-18.0); Imm Gran Abs Auto 0.03 X10*3/uL (0.00-0.03); Imm Gran Pct Auto 0.3 % (0.0-0.4); Lymphocytes Percent Auto 28.3 % (20-40); Mean Corpuscular HGB Conc 32.7 g/dl (31.0-36.0); Mean Corpuscular Hemoglobin 28.2 pg (27.0-33.0); Mean Corpuscular Volume 86.3 fL (80-98); Mean Platelet Volume 10.6 fL (9.4-12.4); Monocytes Percent Auto 9.3 % (2-11); Neutrophils Absolute Auto 6.2 X10*3/uL (2.0-8.3); Neutrophils Percent Auto 58.3 % (45-73); Platelet Count 242 X10*3/uL (160-400); Red Blood Count 4.15 X10*6/uL (4.60-5.80); White Blood Count 10.6 X10*3/uL (4.8-10.8)
[2020-12-02 18:41] LABS: Anion Gap 15 (12-20); Blood Urea Nitrogen 40 mg/dL (9-16); Carbon Dioxide 25 mmol/L (22-29); Chloride 107 mmol/L (96-108); Creatinine Clr Calc Pharmacy 42.7; Estimated Glomerular Filt Rate 34; Glucose Random 125 mg/dL (60-115); Potassium 4.6 mmol/L (3.3-5.1); Sodium 142 mmol/L (135-145)
[2020-12-02 20:00] VITALS: BP 138/67; PULSE 78; RESP 18; TEMP 36.6; O2SAT 94
== END 2020-12-02 22:30 | disposition other institution (70) ==
PROVIDERS: Emergency Provider Emergency Medicine; PCP Hospitalist
DX: L76.22 Postprocedural hemorrhage of skin and subcutaneous tissue following other procedure (principal); E11.22 Type 2 diabetes mellitus with diabetic chronic kidney disease; I12.9 Hypertensive chronic kidney disease with stage 1 through stage 4 chronic kidney disease, or unspecified chronic kidney disease; N18.30 Chronic kidney disease, stage 3 unspecified; E78.5 Hyperlipidemia, unspecified; Z86.73 Personal history of transient ischemic attack (TIA), and cerebral infarction without residual deficits; Z87.891 Personal history of nicotine dependence
CPT/HCPCS: 36415; 72192; 80048; 85025; 99284

== ENCOUNTER → 2020-12-03 13:10 | Outpatient (BNVA) | payer MEDICAID, SELFPAY | PROVIDERS: PCP Hospitalist; Visit Provider Surgery | DX: L76.22 Postprocedural hemorrhage of skin and subcutaneous tissue following other procedure (principal) | CPT/HCPCS: 99212 ==

== ENCOUNTER → 2020-12-11 10:45 | Outpatient (BNVA) | payer MEDICAID, SELFPAY | PROVIDERS: PCP Hospitalist; Visit Provider Surgery | DX: Z48.817 Encounter for surgical aftercare following surgery on the skin and subcutaneous tissue (principal); C44.90 Unspecified malignant neoplasm of skin, unspecified | CPT/HCPCS: 99212 ==

== ENCOUNTER → 2020-12-19 15:05 | Outpatient (BNVA) | payer MEDICAID, SELFPAY | PROVIDERS: PCP Hospitalist; Visit Provider Surgery | DX: Z48.817 Encounter for surgical aftercare following surgery on the skin and subcutaneous tissue (principal); C44.90 Unspecified malignant neoplasm of skin, unspecified | CPT/HCPCS: 99212 ==

== ENCOUNTER 2020-12-25 17:02 | Observation (INO) | payer MEDICAID, SELFPAY ==
[2020-12-25] VITALS (11 sets, daily range): BP systolic 111–165; BP diastolic 50–100; PULSE 56–72; RESP 16–20; TEMP 36.7–37.1; O2SAT 94–98; BMI 34.9
--- NOTE | ~2020-12-25 | XR_ITS ---
EXAMINATION: PORTABLE CHEST 1 VIEW CLINICAL INFORMATION: chest pain . COMPARISON: 10/15/2020. TECHNIQUE: Portable frontal view of the chest was obtained. FINDINGS: The lungs are well expanded. No focal infiltrate, effusion, edema, or pneumothorax. Cardiac and mediastinal silhouettes are within normal limits for technique. No acute bony abnormality seen. Chronic healed left rib fractures again noted. XR/XR chest 1V IMPRESSION: No evidence of acute disease.
--- NOTE | 2020-12-25 17:17 | ECG_ITS ---
Test Reason : CHEST PAIN Blood Pressure : / mmHG Vent. Rate : 070 BPM Atrial Rate : 070 BPM P-R Int : 158 ms QRS Dur : 092 ms QT Int : 394 ms P-R-T Axes : 041 -10 045 degrees QTc Int : 425 ms Normal sinus rhythm with sinus arrhythmia Normal ECG No significant changes when compared with the previous EKG of 15 oct 2020 Referred By: Hamilton Harrison Electronically Signed By:ELHAM JOE
--- NOTE | 2020-12-25 17:20 | ED_ITS ---
HPI - Chest Pain General Chief Complaint: Chest Pain Stated Complaint: CHEST PAIN Time Seen by Provider: 12/25/20 17:19 Source: patient Mode of arrival: EMS Limitations: language barrier History of Present Illness HPI narrative: Chest pain for one hour from nursing home. EMS gave ASA and Nitro still having pain Pertinent past history: other (CVA) Onset (ago): minute(s) Timing of current episode: constant Prior episodes: No Pain location: substernal Pain radiation: none Severity: moderate Quality: sharp Relieving factors: nitroglycerin Associated symptoms: dyspnea Treatment prior to arrival: aspirin and nitroglycerin Related Data Home Medications Medication Instructions Recorded Confirmed ascorbic acid (vitamin C) 500 mg 500 mg PO BID cap 07/24/20 12/25/20 capsule hydrocortisone valerate 0.2 % 1 applic TOPICAL BID PRN 07/24/20 12/25/20 topical cream lactulose 10 gram/15 mL oral 10 g PO Q72H PRN 07/24/20 12/25/20 solution lorazepam 0.5 mg tablet 0.5 mg PO DAILY PRN 07/24/20 12/25/20 risperidone 0.5 mg tablet 0.5 mg PO BID 07/24/20 12/25/20 trazodone 50 mg tablet 25 mg PO BEDTIME 07/24/20 12/25/20 Trulicity 1.5 mg SUBCUT MO@1000 12/25/20 12/25/20 acetaminophen [Tylenol] 650 mg PO Q6H PRN 12/25/20 12/25/20 alum-mag hydroxide-simeth [Mi-Acid] 7.5 ml PO QID 12/25/20 12/25/20 ergocalciferol (vitamin D2) 1,250 mcg PO Q30D 12/25/20 12/25/20 [Vitamin D2] ferrous sulfate 325 mg PO DAILY 12/25/20 12/25/20 guaifenesin 300 mg PO Q4H PRN 12/25/20 12/25/20 insulin lispro [Humalog KwikPen 4 unit SUBCUT DAILY 12/25/20 12/25/20 Insulin] insulin lispro [Humalog KwikPen 8 unit SUBCUT QPM 12/25/20 12/25/20 Insulin] meclizine 25 mg PO Q6H PRN 12/25/20 12/25/20 polyethylene glycol 3350 [Miralax] 17 g PO BID 12/25/20 12/25/20 trolamine salicylate-aloe vera 1 appl TOPICAL TID PRN 12/25/20 12/25/20 [Aspercreme with Aloe] Previous Rx's Medication Instructions Recorded aspirin 81 mg tablet,delayed 81 mg PO DAILY 90 Days #90 tab 07/09/20 release nifedipine 30 mg tablet,extended 30 mg PO DAILY 90 Days #90 tab 07/09/20 release 24 hr famotidine 20 mg tablet 20 mg PO BID PRN 90 Days #90 tab 07/24/20 losartan 50 mg tablet 50 mg PO DAILY 30 Days #30 tab 07/30/20 simvastatin 40 mg tablet 40 mg PO BEDTIME 30 Days #30 tab 07/30/20 tamsulosin 0.4 mg capsule 0.4 mg PO BEDTIME 30 Days #30 cap 07/30/20 lancets 28 gauge #100 ea 07/31/20 insulin lispro 100 unit/mL 4 - 12 unit SUBCUT BID 30 Days #15 08/01/20 subcutaneous pen ml insulin detemir U-100 100 unit/mL 58 unit SUBCUT BID 30 Days #45 ml 08/06/20 (3 mL) subcutaneous pen pen needle, diabetic 31 gauge x 1 ea SUBCUT TID 30 Days #100 ea 10/03/20 5 blood sugar diagnostic 1 strip MISCELLANEOUS TID 30 Days 10/18/20 #100 ea pen needle, diabetic 31 gauge x 1 ea SUBCUT TID #100 ea 10/22/20 5 hydralazine 50 mg tablet 50 mg PO BID #60 tab 10/23/20 sennosides 8.6 mg tablet 8.6 mg PO BID #60 tab 11/18/20 empagliflozin 10 mg tablet 10 mg PO QAM #28 tab 11/19/20 sucralfate 1 gram tablet 1 g PO QID 30 Days #120 tab 12/03/20 metoprolol succinate 25 mg 25 mg PO BEDTIME #28 tab 12/17/20 tablet,extended release 24 hr ursodiol 300 mg capsule 300 mg PO BID #56 cap 12/18/20 Allergies Allergy/AdvReac Type Severity Reaction Status Date / Time amlodipine [From [facility]] Allergy Severe due to Verified 12/25/20 17:16 poor renal function ibuprofen Allergy Severe 2/2 renal Verified 12/25/20 17:16 function Review of Systems Constitutional: Constitutional: Reports no additional constitutional complaints Eyes: Eyes: Reports no additional eye complaints ENT: Denies dizziness Cardiovascular: Cardiovascular: Reports no additional cardiovascular complaints Respiratory: Respiratory: Reports as per HPI Gastrointestinal: Gastrointestinal: Reports no additional gastrointestinal complaints Musculoskeletal: Musculoskeletal: Reports no additional musculoskeletal comp laints Integumentary/Breasts: Skin/Breast: Denies rash Neurologic: Reports system reviewed and no additional complaints, except as documented and Denies dizziness Psychiatric: Psychiatric: Denies anxiety [facility] Past Medical History Medical History Anemia Aphagia Bronchitis Chest pain Chronic kidney disease, stage 3 CKD (chronic kidney disease) Constipation Diabetes GERD (gastroesophageal reflux disease) Hearing loss Hemiplegia HTN (hypertension) Hyperlipidemia Hyperlipidemia Hypertensive chronic kidney disease with stage 1 through stage 4 chronic kidney disease, or unspecified chronic kidney disease Postoperative bleeding from incision Preglaucoma Skin cancer Skin lesion Stroke Type 2 diabetes mellitus with chronic kidney disease Unsteady gait Vascular device, implant, or graft complication Vitamin D deficiency Vitamin D deficiency Surgical History History of exploratory laparotomy Family History Family History Father Myocardial infarction Mother Throat cancer Diabetes Family/Other FH: mental illness Brother In good health Sister In good health Sister In good health Daughter In good health Social History Social History Alcohol intake: never Smoking Status: Never smoker Use of substances other than those prescribed or required for medical reasons: No Advance Directives: Yes Advance Directives on File: Yes Advance Directives Date on File: 12/02/20 Physical Exam Vital Signs: Vital Signs: Last Vital Signs Temp 98.7 F 12/25/20 19:40 Pulse 61 12/25/20 22:43 Resp 16 12/25/20 22:43 BP 121/61 12/25/20 22:43 Pulse Ox 96 12/25/20 22:43 Body Mass Index 34.9 Const: Other: chronically ill male Orientation/consciousness: oriented to person and patient oriented x3 Limitations: no limitations HENMT: Head: Yes normal to inspection Ears: external ears normal General nose exam: Normal external nose present Mouth: Normal oral and palatal mucosa present and oropharynx normal Throat: Yes posterior oropharynx normal Eyes: General: appearance normal, both eyes and all related structures Neck: Other: supple Neck: Yes normal visual inspection Chest: Chest palpation & inspection: normal inspection of the chest Resp: Auscultation: clear to auscultation bilaterally Cardio: Jugular venous distension: no JVD Rate: regular rate Rhythm: regular rhythm Heart sounds: S1 normal heart sound present and S2 normal heart sound present GI: Other: obese male with large laparotomy scar. Soft Auscultation: normal bowel sounds : General: Yes no CVA tenderness Back/Spine/Pelvis: Back: no CVA tenderness Skin: General skin exam: no rashes or lesions noted Neuro: Other: left arm and leg hemiparesis General: oriented to person and patient oriented x3 Cranial nerves: Yes CN's II-XII intact bilaterally Extrem: General: Yes normal to inspection Psych: Appearance: grossly normal Course Course Course Narrative: Discussed with Dr. Griffin and Cardiology Dr. Rodriguez will place in observation. MDM - Chest Pain Lab Data Result diagrams: 12/25/20 18:06 12/25/20 17:32 Labs: Lab Results 12/25/20 12/25/20 12/25/20 Range/Units 17:32 17:32 17:32 WBC Cancelled RBC Cancelled Hgb Cancelled Hct Cancelled MCV Cancelled MCH Cancelled MCHC Cancelled RDW Cancelled Plt Count Cancelled MPV Cancelled Immature Gran % (Auto) Cancelled Neut % (Auto) Cancelled Lymph % (Auto) Cancelled [place] % (Auto) Cancelled Eos % (Auto) Cancelled Baso % (Auto) Cancelled Lymph # (Auto) Cancelled [place] # (Auto) Cancelled Eos # (Auto) Cancelled Baso # (Auto) Cancelled Abs Immat Gran (auto) Cancelled Absolute Neuts (auto) Cancelled Absolute Nucleated RBC Cancelled Nucleated RBC % (auto) Cancelled Hold Blue Top SEE NOTE Sodium 138 (135-145) mmol/L Potassium 5.0 (3.3-5.1) mmol/L Chloride 104 (96-108) mmol/L Carbon Dioxide 20 L (22-29) mmol/L Anion Gap 19 (12-20) BUN 35 H (9-16) mg/dL Creatinine 1.73 H (0.5-1.4) mg/dL Estim Creat Clear Calc 49.3 Estimated GFR 41 POC Glucose (60-115) mg/dL Random Glucose 119 H (60-115) mg/dL Calcium 9.4 (8.4-10.2) mg/dL Troponin I High Sens (<3.5-35.0) ng/L 12/25/20 12/25/20 12/25/20 Range/Units 17:32 18:02 18:06 WBC 10.1 RBC 4.29 L Hgb 11.8 L Hct 36.4 L MCV 84.8 MCH 27.5 MCHC 32.4 RDW 12.5 Plt Count 238 MPV 10.5 Immature Gran % (Auto) 0.3 Neut % (Auto) 53.6 Lymph % (Auto) 32.1 [place] % (Auto) 9.1 Eos % (Auto) 4.4 H Baso % (Auto) 0.5 Lymph # (Auto) 3.3 [place] # (Auto) 0.9 Eos # (Auto) 0.5 H Baso # (Auto) 0.1 Abs Immat Gran (auto) 0.03 Absolute Neuts (auto) 5.4 Absolute Nucleated RBC 0.000 Nucleated RBC % (auto) 0.0 Hold Blue Top Sodium (135-145) mmol/L Potassium (3.3-5.1) mmol/L Chloride (96-108) mmol/L Carbon Dioxide (22-29) mmol/L Anion Gap (12-20) BUN (9-16) mg/dL Creatinine (0.5-1.4) mg/dL Estim Creat Clear Calc Estimated GFR POC Glucose 97 (60-115) mg/dL Random Glucose (60-115) mg/dL Calcium (8.4-10.2) mg/dL Troponin I High Sens 3.8 (<3.5-35.0) ng/L 12/25/20 Range/Units 19:16 WBC RBC Hgb Hct MCV MCH MCHC RDW Plt Count MPV Immature Gran % (Auto) Neut % (Auto) Lymph % (Auto) [place] % (Auto) Eos % (Auto) Baso % (Auto) Lymph # (Auto) [place] # (Auto) Eos # (Auto) Baso # (Auto) Abs Immat Gran (auto) Absolute Neuts (auto) Absolute Nucleated RBC Nucleated RBC % (auto) Hold Blue Top Sodium (135-145) mmol/L Potassium (3.3-5.1) mmol/L Chloride (96-108) mmol/L Carbon Dioxide (22-29) mmol/L Anion Gap (12-20) BUN (9-16) mg/dL Creatinine (0.5-1.4) mg/dL Estim Creat Clear Calc Estimated GFR POC Glucose (60-115) mg/dL Random Glucose (60-115) mg/dL Calcium (8.4-10.2) mg/dL Troponin I High Sens 5.6 (<3.5-35.0) ng/L ECG Data ECG #1: Attestation: I personally reviewed and interpreted this ECG as follows: Interpretation: sinus 70, no st or twave changes Discharge Plan Discharge Clinical Impression: Chest pain Qualifiers: Chest pain type: unspecified Qualified Code(s): R07.9 - Chest pain, unspecified Patient Disposition: Admitted As Inpatient
--- NOTE | 2020-12-25 17:26 | PC.NURSE ---
dr cruz at bedside, ekg complete unremarkable at this time. EMS gave 324 ASA, 1 sl nitro in ambulance. improved pain and bp per patient. client to receive labs. language barrier + neuro defecits from previous stroke
[2020-12-25] MEDS: Nitroglycerin 0.4 MG TAB.SUBL SUBLINGUAL ×2 (17:39→18:14)
--- NOTE | 2020-12-25 18:03 | PC.NURSE ---
client states that pain is 8/10, no improvement with second nitro. per dr crzu give 3rd and final nitro to see. bs 97. vitals wnl
[2020-12-25 18:06] LABS: Anion Gap 19 (12-20); Blood Urea Nitrogen 35 mg/dL (9-16); Calcium 9.4 mg/dL (8.4-10.2); Carbon Dioxide 20 mmol/L (22-29); Chloride 104 mmol/L (96-108); Creatinine Clr Calc Pharmacy 49.3; Estimated Glomerular Filt Rate 41; Glucose Random 119 mg/dL (60-115); Sodium 138 mmol/L (135-145)
[2020-12-25 18:12] LABS: Troponin-I High Sensitivity 3.8 ng/L (<3.5-35.0)
[2020-12-25 18:16] LABS: MANUAL DIFF FLAG NO
[2020-12-25 18:18] LABS: Glucose, Whole Blood 97 mg/dL (60-115)
[2020-12-25 18:28] LABS: Basophils Absolute Auto 0.1 X10*3/uL (0.0-0.2); Basophils Percent Auto 0.5 % (0-2); Eosinophils Absolute Auto 0.5 X10*3/uL (0.0-0.4); Eosinophils Percent Auto 4.4 % (0-4); Hematocrit 36.4 % (42-52); Hemoglobin 11.8 g/dl (14.0-18.0); Imm Gran Abs Auto 0.03 X10*3/uL (0.00-0.03); Imm Gran Pct Auto 0.3 % (0.0-0.4); Lymphocytes Absolute Auto 3.3 X10*3/uL (1.2-4.9); Lymphocytes Percent Auto 32.1 % (20-40); Mean Corpuscular HGB Conc 32.4 g/dl (31.0-36.0); Mean Corpuscular Hemoglobin 27.5 pg (27.0-33.0); Mean Corpuscular Volume 84.8 fL (80-98); Mean Platelet Volume 10.5 fL (9.4-12.4); Monocytes Absolute Auto 0.9 X10*3/uL (0.1-1.2); Monocytes Percent Auto 9.1 % (2-11); Neutrophils Absolute Auto 5.4 X10*3/uL (2.0-8.3); Neutrophils Percent Auto 53.6 % (45-73); Platelet Count 238 X10*3/uL (160-400); Red Blood Count 4.29 X10*6/uL (4.60-5.80); Red Cell Distribution Width 12.5 % (11.0-16.0); White Blood Count 10.1 X10*3/uL (4.8-10.8)
[2020-12-25] MEDS: Nitroglycerin 2 % Oint 1 GM Packet 1 INCH TRANSDERMA (19:06)
[2020-12-25 19:51] LABS: Troponin-I High Sensitivity 5.6 ng/L (<3.5-35.0)
--- NOTE | 2020-12-25 21:35 | PM.IMHP ---
History of Present Illness Date of Service: 12/25/20 Chief Complaint: Chest pain Patient is Hebrew-speaking only and history is obtained with the help of educational sign language interpreter This is a 60-year-old male with past medical history of CVA with left-sided hemiparesis, hypertension, diabetes, CKD, who [facility] with complaints of epigastric pain. Patient reports the pain started spontaneously, located in the epigastric region, nonradiating, he did of 10, feels sharp stabbing pain, similar to his usual heartburn pain, resolved 1 hour later with the nitro pill received by EMS, is not pain-free. No association with any palpitations, no shortness of breath, no nausea or vomiting, diarrhea constipation, he felt slightly hot but no diaphoresis. He had no diarrhea constipation, no urinary symptoms and no lower extremity edema. On arrival to the ED hemodynamically stable with no significant abnormal vitals Labs are significant for WBC count of 10.1, hemoglobin of 11.8, BUN of 35, creatinine of 1.73 (around his baseline), of 3.8 and 5.6, EKG showed no acute changes suggestive of ACS Chest x-ray shows no evidence of acute disease fter discussion with cardiology by ED physician, pt will be admitted for Obs to r/o ACS Past medical history is as below Review of Systems Review of Systems: Yes all other systems are reviewed and are negative [facility] Medical History Anemia Aphagia Bronchitis Chest pain Chronic kidney disease, stage 3 CKD (chronic kidney disease) Constipation Diabetes GERD (gastroesophageal reflux disease) Hearing loss Hemiplegia HTN (hypertension) Hyperlipidemia Hyperlipidemia Hypertensive chronic kidney disease with stage 1 through stage 4 chronic kidney disease, or unspecified chronic kidney disease Postoperative bleeding from incision Preglaucoma Skin cancer Skin lesion Stroke Type 2 diabetes mellitus with chronic kidney disease Unsteady gait Vascular device, implant, or graft complication Vitamin D deficiency Vitamin D deficiency Family History Father Myocardial infarction Mother Throat cancer Diabetes Family/Other FH: mental illness Brother In good health Sister In good health Sister In good health Daughter In good health Surgical History History of exploratory laparotomy Social History Alcohol intake: never Smoking Status: Never smoker Use of substances other than those prescribed or required for medical reasons: No Advance Directives: Yes Advance Directives on File: Yes Advance Directives Date on File: 12/02/20 Meds Allergies Allergy/AdvReac Type Severity Reaction Status Date / Time amlodipine [From [facility]] Allergy Severe due to Verified 12/25/20 17:16 poor renal function ibuprofen Allergy Severe 2/2 renal Verified 12/25/20 17:16 function Active Medications: Current Medications Generic Name Dose Route Start Last Admin Trade Name Freq PRN Reason Stop Dose Admin Nitroglycerin 0.4 mg 12/25/20 17:27 12/25/20 18:14 Nitroglycerin 0.4 Mg Tab.Subl SUBLINGUAL 0.4 mg [id number] PRN Administration Chest Pain Pharmacy Consult 1 each 12/25/20 20:36 Consult Rx Perform Med Rec MISCELLANE ONCE PRN Consult order Home Medications Medication Instructions Recorded Confirmed Last Taken Type ascorbic acid (vitamin C) 500 mg 500 mg PO BID cap 07/24/20 12/25/20 Unknown History capsule hydrocortisone valerate 0.2 % 1 applic TOPICAL BID PRN 07/24/20 12/25/20 Unknown History topical cream lactulose 10 gram/15 mL oral 10 g PO Q72H PRN 07/24/20 12/25/20 Unknown History solution lorazepam 0.5 mg tablet 0.5 mg PO DAILY PRN 07/24/20 12/25/20 Unknown History risperidone 0.5 mg tablet 0.5 mg PO BID 07/24/20 12/25/20 Unknown History trazodone 50 mg tablet 25 mg PO BEDTIME 07/24/20 12/25/20 Unknown History Trulicity 1.5 mg SUBCUT MO@1000 12/25/20 12/25/20 Unknown History acetaminophen [Tylenol] 650 mg PO Q6H PRN 12/25/20 12/25/20 Unknown History alum-mag hydroxide-simeth [Mi-Acid] 7.5 ml PO QID 12/25/20 12/25/20 Unknown History ergocalciferol (vitamin D2) 1,250 mcg PO Q30D 12/25/20 12/25/20 12/17/20 History [Vitamin D2] ferrous sulfate 325 mg PO DAILY 12/25/20 12/25/20 Unknown History guaifenesin 300 mg PO Q4H PRN 12/25/20 12/25/20 Unknown History insulin lispro [Humalog KwikPen 4 unit SUBCUT DAILY 12/25/20 12/25/20 Unknown History Insulin] insulin lispro [Humalog KwikPen 8 unit SUBCUT QPM 12/25/20 12/25/20 Unknown History Insulin] meclizine 25 mg PO Q6H PRN 12/25/20 12/25/20 Unknown History polyethylene glycol 3350 [Miralax] 17 g PO BID 12/25/20 12/25/20 Unknown History trolamine salicylate-aloe vera 1 appl TOPICAL TID PRN 12/25/20 12/25/20 Unknown History [Aspercreme with Aloe] Physical Exam Vital Signs and Narrative: Vital Signs: Last Vital Signs Temp 98.7 F 12/25/20 19:40 Pulse 61 12/25/20 19:40 Resp 20 12/25/20 19:40 BP 126/62 12/25/20 19:40 Pulse Ox 96 12/25/20 19:40 Body Mass Index 34.9 Const: General: cooperative and no acute distress Orientation/consciousness: patient oriented x3 Eyes: General: appearance normal, both eyes and all related structures Resp: Effort & Inspection: normal respiratory effort and able to speak in complete sentences Cardio: Rate: regular rate Rhythm: regular rhythm GI: Other: reproducible epigastric pain on palpation Palpation (GI): Soft to palpation Auscultation: normal bowel sounds Skin: General skin exam: no rashes or lesions noted Neuro: Other: left hemiparesis General: patient oriented x3 Cognition (Neuro): normal cognition Extrem: General: Yes normal to inspection and Yes no pedal edema Results Labs CBC and Chem 7: 12/25/20 18:06 12/25/20 17:32 Labs: Laboratory Results - last 24 hr 12/25/20 12/25/20 12/25/20 17:32 17:32 17:32 MCV Cancelled MCH Cancelled MCHC Cancelled RDW Cancelled Plt Count Cancelled MPV Cancelled Immature Gran % (Auto) Cancelled Neut % (Auto) Cancelled Lymph % (Auto) Cancelled [place] % (Auto) Cancelled Eos % (Auto) Cancelled Baso % (Auto) Cancelled Lymph # (Auto) Cancelled [place] # (Auto) Cancelled Eos # (Auto) Cancelled Baso # (Auto) Cancelled Abs Immat Gran (auto) Cancelled Absolute Neuts (auto) Cancelled Absolute Nucleated RBC Cancelled Nucleated RBC % (auto) Cancelled Hold Blue Top SEE NOTE Anion Gap 19 Estim Creat Clear Calc 49.3 Estimated GFR 41 POC Glucose Random Glucose 119 H Calcium 9.4 Troponin I High Sens 12/25/20 12/25/20 12/25/20 17:32 18:02 18:06 MCV 84.8 MCH 27.5 MCHC 32.4 RDW 12.5 Plt Count 238 MPV 10.5 Immature Gran % (Auto) 0.3 Neut % (Auto) 53.6 Lymph % (Auto) 32.1 [place] % (Auto) 9.1 Eos % (Auto) 4.4 H Baso % (Auto) 0.5 Lymph # (Auto) 3.3 [place] # (Auto) 0.9 Eos # (Auto) 0.5 H Baso # (Auto) 0.1 Abs Immat Gran (auto) 0.03 Absolute Neuts (auto) 5.4 Absolute Nucleated RBC 0.000 Nucleated RBC % (auto) 0.0 Hold Blue Top Anion Gap Estim Creat Clear Calc Estimated GFR POC Glucose 97 Random Glucose Calcium Troponin I High Sens 3.8 12/25/20 19:16 MCV MCH MCHC RDW Plt Count MPV Immature Gran % (Auto) Neut % (Auto) Lymph % (Auto) [place] % (Auto) Eos % (Auto) Baso % (Auto) Lymph # (Auto) [place] # (Auto) Eos # (Auto) Baso # (Auto) Abs Immat Gran (auto) Absolute Neuts (auto) Absolute Nucleated RBC Nucleated RBC % (auto) Hold Blue Top Anion Gap Estim Creat Clear Calc Estimated GFR POC Glucose Random Glucose Calcium Troponin I High Sens 5.6 Imaging Radiologist's Impressions: Impressions Chest X-Ray 12/25/20 17:17 IMPRESSION: No evidence of acute disease. Assessment and Plan (1) Epigastric pain: Status: Acute This is a 60-year-old male with past medical history of diabetes hypertension, CVA, GERD, CKD among others who presents the hospital with epigastric pain, patient will be admitted for observation and ACS rule out # epigastric pain - most likely secondary to GERD - troponin x2 negative - EKG shows no acute ACS - will admit to to telemetry for observation # diabetes - continue home insulin - includes low-dose sliding insulin - diabetic diet # hypertension - stable - continue home meds DVT prophylaxis:heparin subq
[2020-12-25] MEDS: 0.9 % Sodium Chloride Flush 3 ML SYRINGE IVFLUSH (23:50)
[2020-12-25] MEDS: Heparin Sodium,Porcine 5,000 UNIT/ML VIAL 5000 UNIT SUBCUT (23:50)
[2020-12-26] VITALS: BP 146/69; PULSE 75; RESP 18; TEMP 36.5; O2SAT 97
[2020-12-26 00:18] LABS: IDNOW Serial# 9DD0AD1C
[2020-12-26 00:19] LABS: COVID-19 Test Negative (Negative)
[2020-12-26] MEDS: Acetaminophen 325 MG TABLET 650 MG PO (01:46)
[2020-12-26 03:43] VITALS: BP 140/68; PULSE 71; RESP 18; TEMP 36.2; O2SAT 100
--- NOTE | 2020-12-26 05:10 | PC.NURSE ---
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
[2020-12-26 07:08] LABS: Glucose, Whole Blood 141 mg/dL (60-115)
[2020-12-26 07:10] LABS: MANUAL DIFF FLAG NO
[2020-12-26 07:16] VITALS: BP 124/68; PULSE 65; RESP 16; TEMP 36.1; O2SAT 99
[2020-12-26 07:16] LABS: Basophils Percent Auto 0.3 % (0-2); Eosinophils Absolute Auto 0.3 X10*3/uL (0.0-0.4); Eosinophils Percent Auto 3.5 % (0-4); Hematocrit 33.9 % (42-52); Hemoglobin 10.9 g/dl (14.0-18.0); Imm Gran Abs Auto 0.02 X10*3/uL (0.00-0.03); Imm Gran Pct Auto 0.2 % (0.0-0.4); Lymphocytes Absolute Auto 2.8 X10*3/uL (1.2-4.9); Lymphocytes Percent Auto 29.6 % (20-40); Mean Corpuscular HGB Conc 32.2 g/dl (31.0-36.0); Mean Corpuscular Hemoglobin 27.9 pg (27.0-33.0); Mean Corpuscular Volume 86.7 fL (80-98); Mean Platelet Volume 11.1 fL (9.4-12.4); Monocytes Absolute Auto 0.9 X10*3/uL (0.1-1.2); Monocytes Percent Auto 9.1 % (2-11); Neutrophils Absolute Auto 5.4 X10*3/uL (2.0-8.3); Neutrophils Percent Auto 57.3 % (45-73); Platelet Count 220 X10*3/uL (160-400); Red Blood Count 3.91 X10*6/uL (4.60-5.80); Red Cell Distribution Width 12.6 % (11.0-16.0); White Blood Count 9.4 X10*3/uL (4.8-10.8)
[2020-12-26 07:47] LABS: Anion Gap 17 (12-20); Blood Urea Nitrogen 37 mg/dL (9-16); Carbon Dioxide 25 mmol/L (22-29); Chloride 105 mmol/L (96-108); Creatinine Clr Calc Pharmacy 46.1; Estimated Glomerular Filt Rate 38; Glucose Random 186 mg/dL (60-115); Potassium 4.9 mmol/L (3.3-5.1); Sodium 142 mmol/L (135-145)
[2020-12-26 08:14] VITALS: BP 124/68; PULSE 65
[2020-12-26] MEDS: risperiDONE 0.5 MG TABLET PO (08:14)
[2020-12-26] MEDS: UrsodioL 300 MG CAPSULE PO (08:14)
[2020-12-26] MEDS: Sennosides 8.6 MG TABLET PO (08:14)
[2020-12-26] MEDS: Ascorbic Acid 500 MG TABLET PO (08:14)
[2020-12-26] MEDS: NIFEdipine ER 30 MG TAB.ER.24 PO (08:14)
[2020-12-26] MEDS: Losartan Potassium 50 MG TABLET PO (08:14)
[2020-12-26 08:15] VITALS: BP 124/68; PULSE 65
[2020-12-26] MEDS: Sucralfate 1 GM TABLET PO ×2 (08:15→11:59)
[2020-12-26] MEDS: Aspirin Enteric Coated 81 MG TABLET.DR PO (08:15)
[2020-12-26] MEDS: hydrALAZINE HCl 50 MG TABLET PO (08:15)
[2020-12-26] MEDS: polyethylene glycoL 3350 17 GM POWD.PACK PO (08:15)
[2020-12-26] MEDS: 0.9 % Sodium Chloride Flush 3 ML SYRINGE IVFLUSH (08:16)
--- NOTE | 2020-12-26 08:43 | MHC.CM.PN ---
CM met with Patient and his Parts Washer/Terell and addressed MARTINEZ, providing Patient with the original and a copy placed on the chart. Patient is from a [facility] and the goal for dc is to return there. CM has initiated and will follow for dc planning. Patient is unsure of his PCP but appears to understand the conversation, responding appropriately to questions. Patient's Cousin/ Caitlin @ [phone] is Patient's Guardian.
[2020-12-26 09:19] LABS: Troponin-I High Sensitivity < 3.5 ng/L (<3.5-35.0)
[2020-12-26] MEDS: Omeprazole 40 MG CAPSULE.DR PO (09:35)
[2020-12-26] MEDS: Insulin Glargine,Hum.rec.anlog 100 UNIT/ML 10 ML VIAL 41 UNIT SUBCUT (09:35)
[2020-12-26 09:36] LABS: Alanine Aminotransferase 7 U/L (0-40); Albumin Level 4.1 g/dL (3.5-5.0); Alkaline Phosphatase 78 U/L (39-117); Aspartate Amino Transferase 13 U/L (5-37); Bilirubin Direct < 0.2 mg/dL (0.0-0.5); Bilirubin Total 0.2 mg/dL (0.0-1.0); Lipase 53 U/L (8-78); Total Protein 7.2 g/dL (6.5-8.0)
--- NOTE | 2020-12-26 11:19 | P.CONCA_ITS ---
History of Present Illness History of Present Illness Date of Service: 12/26/20 Chief complaint: R/O ACS Narrative: This is a cardiology consultation regarding chest pain. Discussed with patient using a barrel liner. He states that he has been having pain in the epigastric area. He has had this in the past on and off and again had that is today. When I questioned him regarding to any precordial chest pain, he states that he does not have any pain in that area. No jaw pain or neck pain or left arm discomfort or anywhere else. Not short of breath. No palpitations or dizzy spells or syncopal episodes. He states that he also feels like he is having acid reflux. Review of Systems Review of Systems: Yes all other systems are reviewed and are negative Cardiovascular: Cardiovascular: Reports as per HPI, Reports no additional cardiovascular complaints, Denies acrocyanosis, Denies cool extremities, Denies painful fingertips, Denies chest pain, Denies chest pain at rest, Denies diaphoresis, Denies syncope, Denies irregular heart rhythm, Denies claudication, Denies leg edema, Denies lightheadedness, Denies palpitations and Denies dyspnea Respiratory: Respiratory: Denies dyspnea Gastrointestinal: Gastrointestinal: Reports abdominal pain Neurologic: Denies syncope Endocrine: Endocrine: Denies palpitations [facility] Past Medical History Medical History Anemia Aphagia Bronchitis Chest pain Chronic kidney disease, stage 3 CKD (chronic kidney disease) Constipation Diabetes GERD (gastroesophageal reflux disease) Hearing loss Hemiplegia HTN (hypertension) Hyperlipidemia Hyperlipidemia Hypertensive chronic kidney disease with stage 1 through stage 4 chronic kidney disease, or unspecified chronic kidney disease Postoperative bleeding from incision Preglaucoma Skin cancer Skin lesion Stroke Type 2 diabetes mellitus with chronic kidney disease Unsteady gait Vascular device, implant, or graft complication Vitamin D deficiency Vitamin D deficiency Family History Family History Father Myocardial infarction Mother Throat cancer Diabetes Family/Other FH: mental illness Brother In good health Sister In good health Sister In good health Daughter In good health Surgical History Surgical History History of exploratory laparotomy Social History Social History Alcohol intake: never Smoking Status: Never smoker Use of substances other than those prescribed or required for medical reasons: No Currently Displaying Signs/Symptoms of Drug Intoxication Withdrawal: No Advance Directives: Yes Advance Directives on File: Yes Advance Directives Date on File: 12/02/20 Do you have thoughts of harming others: None service: No Current occupational status: disabled Meds Allergies Allergy/AdvReac Type Severity Reaction Status Date / Time amlodipine [From [facility]] Allergy Severe due to Verified 12/25/20 17:16 poor renal function ibuprofen Allergy Severe 2/2 renal Verified 12/25/20 17:16 function Active Medications: Current Medications Generic Name Dose Route Start Last Admin Trade Name Freq PRN Reason Stop Dose Admin Acetaminophen 650 mg 12/25/20 23:16 Acetaminophen 325 Mg Tablet PO Q6H PRN Pain, Mild (Pain Scale 1-3) Ascorbic Acid 500 mg 12/26/20 09:00 12/26/20 08:14 Ascorbic Acid 500 Mg Tablet PO 500 mg BID CHELSIE Administration Aspirin 81 mg 12/26/20 09:00 12/26/20 08:15 Aspirin Enteric Coated 81 Mg Tablet.Dr PO 81 mg DAILY CHELSIE Administration Atorvastatin Calcium 20 mg 12/26/20 21:00 Atorvastatin Calcium 20 Mg Tablet PO BEDTIME CHELSIE Docusate Sodium 100 mg 12/25/20 23:16 Docusate Sodium 100 Mg Capsule PO DAILY PRN Constipation Famotidine 20 mg 12/25/20 23:16 Famotidine 20 Mg Tablet PO BID PRN acid reflux Heparin Sodium (Porcine) 5,000 unit 12/26/20 00:00 12/25/20 23:50 Heparin Sodium,Porcine 5,000 Unit/Ml Vial SUBCUT 5,000 unit Q12H CHELSIE Administration Hydralazine HCl 50 mg 12/26/20 09:00 12/26/20 08:15 Hydralazine Hcl 50 Mg Tablet PO 50 mg BID CHELSIE Administration Protocol Insulin Glargine 41 unit 12/26/20 09:00 12/26/20 09:35 Insulin Glargine,Hum.Rec.Anlog 100 Unit/Ml 10 Ml Vial SUBCUT 41 unit BID CHELSIE Administration Insulin Human Lispro 4 unit 12/26/20 09:00 12/26/20 08:15 Insulin Lispro 100 Unit/Ml 3 Ml Vial SUBCUT Not Given DAILY [facility] Insulin Human Lispro 8 unit 12/26/20 17:30 Insulin Lispro 100 Unit/Ml 3 Ml Vial SUBCUT DAILY@1730 [facility] Insulin Human Lispro 0 unit 12/26/20 07:30 12/26/20 07:25 Insulin Lispro 100 Unit/Ml 3 Ml Vial SUBCUT Not Given QIDACHS [facility] Protocol Lactulose 10 gm 12/25/20 23:16 Lactulose 20 Gm/30 Ml Solution PO Q72H PRN Constipation Lorazepam 0.5 mg 12/25/20 23:16 Lorazepam 0.5 Mg Tablet PO DAILY PRN Anxiety Losartan Potassium 50 mg 12/26/20 09:00 12/26/20 08:14 Losartan Potassium 50 Mg Tablet PO 50 mg DAILY [facility] Administration Protocol Meclizine HCl 25 mg 12/25/20 23:16 Meclizine Hcl 25 Mg Tablet PO Q6H PRN Dizziness Metoprolol Succinate 25 mg 12/26/20 21:00 Metoprolol Succinate Er 25 Mg Tab.Er.24h PO BEDTIME [facility] Protocol Nifedipine 30 mg 12/26/20 09:00 12/26/20 08:14 Nifedipine Er 30 Mg Tab.Er.24 PO 30 mg DAILY [facility] Administration Protocol Nitroglycerin 0.4 mg 12/25/20 17:27 12/25/20 18:14 Nitroglycerin 0.4 Mg Tab.Subl SUBLINGUAL 0.4 mg Q5MX3 PRN Administration Chest Pain Non-Formulary Medication 1 appl 12/25/20 23:16 Hydrocortisone Valerate TOPICAL BID PRN Itching Omeprazole 40 mg 12/26/20 09:30 12/26/20 09:35 Omeprazole 40 Mg Capsule. PO 40 mg DAILY@0630 [facility] Administration Ondansetron HCl 4 mg 12/25/20 23:16 Ondansetron Hcl 4 Mg/2 Ml Vial IVPUSH Q8H PRN Nausea and Vomiting Pharmacy Consult 1 each 12/25/20 20:36 Consult Rx Perform Med Rec MISCELLANE ONCE PRN Consult order Polyethylene Glycol 17 gm 12/26/20 09:00 12/26/20 08:15 Polyethylene Glycol 3350 17 Gm Powd.Pack PO 17 gm BID CHELSIE Administration Risperidone 0.5 mg 12/26/20 09:00 12/26/20 08:14 Risperidone 0.5 Mg Tablet PO 0.5 mg BID [facility] Administration Senna 8.6 mg 12/26/20 09:00 12/26/20 08:14 Sennosides 8.6 Mg Tablet PO 8.6 mg BID [facility] Administration Sodium Chloride 3 ml 12/26/20 00:00 12/26/20 08:16 0.9 % Sodium Chloride Flush 3 Ml Syringe IVFLUSH 3 ml QSHIFT [facility] Administration Sucralfate 1 gm 12/26/20 09:00 12/26/20 08:15 Sucralfate 1 Gm Tablet PO 1 gm QID [facility] Administration Tamsulosin HCl 0.4 mg 12/26/20 21:00 Tamsulosin Hcl 0.4 Mg Capsule PO BEDTIME CHELSIE Trazodone HCl 25 mg 12/26/20 21:00 Trazodone Hcl 25 Mg Halftab PO BEDTIME [facility] Trolamine Salicylate/Aloe Vera 1 appl 12/25/20 23:16 Trolamine Salicylate 10%/Aloe Cream 35.4 Gm TOPICAL TID PRN Pain Ursodiol 300 mg 12/26/20 08:00 12/26/20 08:14 Ursodiol 300 Mg Capsule PO 300 mg BIDWM [facility] Administration Home Medications Medication Instructions Recorded Confirmed Last Taken Type ascorbic acid (vitamin C) 500 mg 500 mg PO BID cap 07/24/20 12/25/20 Unknown History capsule hydrocortisone valerate 0.2 % 1 applic TOPICAL BID PRN 07/24/20 12/25/20 Unknown History topical cream lactulose 10 gram/15 mL oral 10 g PO Q72H PRN 07/24/20 12/25/20 Unknown History solution lorazepam 0.5 mg tablet 0.5 mg PO DAILY PRN 07/24/20 12/25/20 Unknown History risperidone 0.5 mg tablet 0.5 mg PO BID 07/24/20 12/25/20 Unknown History trazodone 50 mg tablet 25 mg PO BEDTIME 07/24/20 12/25/20 Unknown History Trulicity 1.5 mg SUBCUT MO@1000 12/25/20 12/25/20 Unknown History acetaminophen [Tylenol] 650 mg PO Q6H PRN 12/25/20 12/25/20 Unknown History alum-mag hydroxide-simeth [Mi-Acid] 7.5 ml PO QID 12/25/20 12/25/20 Unknown History ergocalciferol (vitamin D2) 1,250 mcg PO Q30D 12/25/20 12/25/20 12/17/20 History [Vitamin D2] ferrous sulfate 325 mg PO DAILY 12/25/20 12/25/20 Unknown History guaifenesin 300 mg PO Q4H PRN 12/25/20 12/25/20 Unknown History insulin lispro [Humalog KwikPen 4 unit SUBCUT DAILY 12/25/20 12/25/20 Unknown History Insulin] insulin lispro [Humalog KwikPen 8 unit SUBCUT QPM 12/25/20 12/25/20 Unknown History Insulin] meclizine 25 mg PO Q6H PRN 12/25/20 12/25/20 Unknown History polyethylene glycol 3350 [Miralax] 17 g PO BID 12/25/20 12/25/20 Unknown History trolamine salicylate-aloe vera 1 appl TOPICAL TID PRN 12/25/20 12/25/20 Unknown History [Aspercreme with Aloe] Physical Exam Vital Signs: Vital Signs: Last Vital Signs Temp 97 F 12/26/20 07:16 Pulse 65 12/26/20 08:15 Resp 16 12/26/20 07:16 BP 124/68 12/26/20 08:15 Pulse Ox 99 12/26/20 07:16 Body Mass Index 34.9 Const: General: cooperative, comfortable and no acute distress Orientation/consciousness: patient oriented x3 HENMT: Other: Unremarkable Neck: Neck: Yes normal visual inspection Chest: Chest palpation & inspection: normal inspection of the chest Resp: Auscultation: clear to auscultation bilaterally, no crackles and no wheezes Cardio: Jugular venous distension: no JVD Palpation: normal PMI Heart sounds: S1 normal heart sound present, S2 normal heart sound present, no gallops, no murmurs and no rubs GI: Palpation (GI): Soft to palpation and Tenderness to palpation present (GI) Back/Spine/Pelvis: Other: unremarkable Skin: General skin exam: no rashes or lesions noted Neuro: General: patient oriented x3 Extrem: General: Yes no clubbing, cyanosis or edema Psych: Mental Status: mental status grossly normal Results Labs and Meds Result diagrams: 12/26/20 05:43 12/26/20 05:43 Lab results: Laboratory Results - last 24 hr 03/12/25/20 12/25/20 17:32 17:32 17:32 WBC Cancelled RBC Cancelled Hgb Cancelled Hct Cancelled MCV Cancelled MCH Cancelled MCHC Cancelled RDW Cancelled Plt Count Cancelled MPV Cancelled Immature Gran % (Auto) Cancelled Neut % (Auto) Cancelled Lymph % (Auto) Cancelled Anson % (Auto) Cancelled Eos % (Auto) Cancelled Baso % (Auto) Cancelled Lymph # (Auto) Cancelled Anson # (Auto) Cancelled Eos # (Auto) Cancelled Baso # (Auto) Cancelled Abs Immat Gran (auto) Cancelled Absolute Neuts (auto) Cancelled Absolute Nucleated RBC Cancelled Nucleated RBC % (auto) Cancelled Hold Blue Top SEE NOTE Sodium 138 Potassium 5.0 Chloride 104 Carbon Dioxide 20 L Anion Gap 19 BUN 35 H Creatinine 1.73 H Estim Creat Clear Calc 49.3 Estimated GFR 41 POC Glucose Random Glucose 119 H Calcium 9.4 Total Bilirubin Direct Bilirubin AST ALT Alkaline Phosphatase Troponin I High Sens Total Protein Albumin Lipase COVID-19 (LAYO) [employer] 12/25/20 12/25/20 12/25/20 17:32 18:02 18:06 WBC 10.1 RBC 4.29 L Hgb 11.8 L Hct 36.4 L MCV 84.8 MCH 27.5 MCHC 32.4 RDW 12.5 Plt Count 238 MPV 10.5 Immature Gran % (Auto) 0.3 Neut % (Auto) 53.6 Lymph % (Auto) 32.1 Anson % (Auto) 9.1 Eos % (Auto) 4.4 H Baso % (Auto) 0.5 Lymph # (Auto) 3.3 Anson # (Auto) 0.9 Eos # (Auto) 0.5 H Baso # (Auto) 0.1 Abs Immat Gran (auto) 0.03 Absolute Neuts (auto) 5.4 Absolute Nucleated RBC 0.000 Nucleated RBC % (auto) 0.0 Hold Blue Top Sodium Potassium Chloride Carbon Dioxide Anion Gap BUN Creatinine Estim Creat Clear Calc Estimated GFR POC Glucose 97 Random Glucose Calcium Total Bilirubin Direct Bilirubin AST ALT Alkaline Phosphatase Troponin I High Sens 3.8 Total Protein Albumin Lipase COVID-19 (LAYO) [employer] 12/25/20 12/25/20 12/26/20 19:16 23:49 05:43 WBC 9.4 RBC 3.91 L Hgb 10.9 L Hct 33.9 L MCV 86.7 MCH 27.9 MCHC 32.2 RDW 12.6 Plt Count 220 MPV 11.1 Immature Gran % (Auto) 0.2 Neut % (Auto) 57.3 Lymph % (Auto) 29.6 Anson % (Auto) 9.1 Eos % (Auto) 3.5 Baso % (Auto) 0.3 Lymph # (Auto) 2.8 Anson # (Auto) 0.9 Eos # (Auto) 0.3 Baso # (Auto) 0.0 Abs Immat Gran (auto) 0.02 Absolute Neuts (auto) 5.4 Absolute Nucleated RBC 0.000 Nucleated RBC % (auto) 0.0 Hold Blue Top Sodium Potassium Chloride Carbon Dioxide Anion Gap BUN Creatinine Estim Creat Clear Calc Estimated GFR POC Glucose Random Glucose Calcium Total Bilirubin Direct Bilirubin AST ALT Alkaline Phosphatase Troponin I High Sens 5.6 Total Protein Albumin Lipase COVID-19 (LAYO) Negative COVID-19 Clin Com See Note 12/26/20 12/26/20 12/26/20 05:43 05:43 07:05 WBC RBC Hgb Hct MCV MCH MCHC RDW Plt Count MPV Immature Gran % (Auto) Neut % (Auto) Lymph % (Auto) Anson % (Auto) Eos % (Auto) Baso % (Auto) Lymph # (Auto) Anson # (Auto) Eos # (Auto) Baso # (Auto) Abs Immat Gran (auto) Absolute Neuts (auto) Absolute Nucleated RBC Nucleated RBC % (auto) Hold Blue Top Sodium 142 Potassium 4.9 Chloride 105 Carbon Dioxide 25 Anion Gap 17 BUN 37 H Creatinine 1.85 H Estim Creat Clear Calc 46.1 Estimated GFR 38 POC Glucose 141 H Random Glucose 186 H D Calcium 9.0 Total Bilirubin 0.2 Direct Bilirubin < 0.2 AST 13 D ALT 7 Alkaline Phosphatase 78 Troponin I High Sens < 3.5 Total Protein 7.2 Albumin 4.1 Lipase 53 COVID-19 (LAYO) COVID-19 Clin Com ECG Attestation: I personally reviewed and interpreted this ECG as follows: Interpretation: EKG with normal sinus rhythm with no significant ST-T changes and otherwise unremarkable. Imaging Radiologist's impression: Impressions Chest X-Ray 12/25/20 17:17 IMPRESSION: No evidence of acute disease. Assessment and Plan (1) Precordial chest pain: Status: Acute (2) Epigastric pain: Status: Acute (3) Essential hypertension: Status: Acute (4) Type 2 diabetes mellitus with chronic kidney disease: Qualifiers: Diabetes mellitus alf insulin use: with rodent exterminator use Chronic kidney disease stage: stage 3 (moderate) Chronic kidney disease stage 3 subtype: stage 3a (GFR 45-59) Qualified Code(s): E11.21 - Type 2 diabetes mellitus with diabetic nephropathy; N18.31 - Chronic kidney disease, stage 3a; Z79.4 - senior care (current) use of insulin Status: Acute (5) Chronic kidney disease, stage 3: Qualifiers: Chronic kidney disease stage 3 subtype: stage 3a (GFR 45-59) Qualified Code(s): N18.31 - Chronic kidney disease, stage 3a Status: Acute (6) GERD (gastroesophageal reflux disease): Qualifiers: Esophagitis presence: without esophagitis Qualified Code(s): K21.9 - Gastro-esophageal reflux disease without esophagitis Status: Acute Cardiac studies reviewed. Three sets of troponins have been performed which are all normal. Echocardiogram last year showed normal LVEF and was essentially normal. Myocardial perfusion imaging was also normal. His pain is mostly in the epigastrium as opposed to the chest and is also reproducible by palpation. Not clear if he has something like peptic ulcer disease as he also describes reflux symptoms. We can hold off any further cardiac workup at this time.
[2020-12-26 11:22] VITALS: BMI 34.9
[2020-12-26 11:26] LABS: Glucose, Whole Blood 190 mg/dL (60-115)
[2020-12-26 11:38] VITALS: BP 153/83; PULSE 100; RESP 17; TEMP 36.2; O2SAT 98
[2020-12-26] MEDS: Heparin Sodium,Porcine 5,000 UNIT/ML VIAL 5000 UNIT SUBCUT (11:57)
[2020-12-26] MEDS: Insulin Lispro 100 UNIT/ML 3 ML VIAL 8 UNIT SUBCUT (11:58)
[2020-12-26] MEDS: Insulin Lispro 100 UNIT/ML 3 ML VIAL SUBCUT (11:59)
--- NOTE | 2020-12-26 12:14 | P.DS_ITS ---
DS: Providers Provider Date of Service: 12/26/20 <MONIKA Christianson - Last Filed: 12/26/20 12:20> 12/26/20 <Aki Murphy MD - Last Filed: 12/26/20 16:22> Date of admission: 12/25/20 22:54 <MONIKA Christianson - Last Filed: 12/26/20 12:20> Primary care physician: Unknown Physician <MONIKA Christianson - Last Filed: 12/26/20 12:20> Consults: 12/26/20 07:44 Consult to Cardiology Routine Consulting Provider: Gary Rodriguez Reason for consultation: acs rule out. Has provider been notified: No <MONIKA Christianson - Last Filed: 12/26/20 12:20> DS: Diagnosis Discharge Diagnosis (1) Precordial chest pain: Status: Acute <MONIKA Christianson - Last Filed: 12/26/20 12:20> (2) Epigastric pain: Status: Acute <MONIKA Christianson - Last Filed: 12/26/20 12:20> (3) Essential hypertension: Status: Acute <MONIKA Christianson - Last Filed: 12/26/20 12:20> (4) Type 2 diabetes mellitus with chronic kidney disease: Status: Acute <MONIKA Christianson - Last Filed: 12/26/20 12:20> (5) Chronic kidney disease, stage 3: Status: Acute <MONIKA Christianson - Last Filed: 12/26/20 12:20> (6) GERD (gastroesophageal reflux disease): Status: Acute <MONIKA Christianson - Last Filed: 12/26/20 12:20> DS: Medications Discharge Medications Home Medications: Home Medications Medication Instructions Recorded Confirmed ascorbic acid (vitamin C) 500 mg 500 mg PO BID cap 07/24/20 12/25/20 capsule hydrocortisone valerate 0.2 % 1 applic TOPICAL BID PRN 07/24/20 12/25/20 topical cream lactulose 10 gram/15 mL oral 10 g PO Q72H PRN 07/24/20 12/25/20 solution lorazepam 0.5 mg tablet 0.5 mg PO DAILY PRN 07/24/20 12/25/20 risperidone 0.5 mg tablet 0.5 mg PO BID 07/24/20 12/25/20 trazodone 50 mg tablet 25 mg PO BEDTIME 07/24/20 12/25/20 Aspercreme with Aloe 1 appl TOPICAL TID PRN 12/25/20 12/25/20 Trulicity 1.5 mg SUBCUT MO@1000 12/25/20 12/25/20 acetaminophen [Tylenol] 650 mg PO Q6H PRN 12/25/20 12/25/20 alum-mag hydroxide-simeth [Mi-Acid] 7.5 ml PO QID 12/25/20 12/25/20 ergocalciferol (vitamin D2) 1,250 mcg PO Q30D 12/25/20 12/25/20 [Vitamin D2] ferrous sulfate 325 mg PO DAILY 12/25/20 12/25/20 guaifenesin 300 mg PO Q4H PRN 12/25/20 12/25/20 insulin lispro [Humalog KwikPen 4 unit SUBCUT DAILY 12/25/20 12/25/20 Insulin] insulin lispro [Humalog KwikPen 8 unit SUBCUT QPM 12/25/20 12/25/20 Insulin] meclizine 25 mg PO Q6H PRN 12/25/20 12/25/20 polyethylene glycol 3350 [Miralax] 17 g PO BID 12/25/20 12/25/20 Previous Rx's Medication Instructions Recorded aspirin 81 mg tablet,delayed 81 mg PO DAILY 90 Days #90 tab 07/09/20 release nifedipine 30 mg tablet,extended 30 mg PO DAILY 90 Days #90 tab 07/09/20 release 24 hr famotidine 20 mg tablet 20 mg PO BID PRN 90 Days #90 tab 07/24/20 losartan 50 mg tablet 50 mg PO DAILY 30 Days #30 tab 07/30/20 simvastatin 40 mg tablet 40 mg PO BEDTIME 30 Days #30 tab 07/30/20 tamsulosin 0.4 mg capsule 0.4 mg PO BEDTIME 30 Days #30 cap 07/30/20 lancets 28 gauge #100 ea 07/31/20 insulin lispro 100 unit/mL 4 - 12 unit SUBCUT BID 30 Days #15 08/01/20 subcutaneous pen ml insulin detemir U-100 100 unit/mL 58 unit SUBCUT BID 30 Days #45 ml 08/06/20 (3 mL) subcutaneous pen pen needle, diabetic 31 gauge x 1 ea SUBCUT TID 30 Days #100 ea 10/03/2002/16 blood sugar diagnostic 1 strip MISCELLANEOUS TID 30 Days 10/18/20 #100 ea pen needle, diabetic 31 gauge x 1 ea SUBCUT TID #100 ea 10/22/2002/16 hydralazine 50 mg tablet 50 mg PO BID #60 tab 10/23/20 sennosides 8.6 mg tablet 8.6 mg PO BID #60 tab 11/18/20 empagliflozin 10 mg tablet 10 mg PO QAM #28 tab 11/19/20 sucralfate 1 gram tablet 1 g PO QID 30 Days #120 tab 12/03/20 metoprolol succinate 25 mg 25 mg PO BEDTIME #28 tab 12/17/20 tablet,extended release 24 hr ursodiol 300 mg capsule 300 mg PO BID #56 cap 12/18/20 <MONIKA Christianson - Last Filed: 12/26/20 12:20> DS: Summary Hospital Course Hospital Course: This is a 60-year-old male with past medical history of diabetes hypertension, CVA, GERD, CKD among others who presents the hospital with epigastric pain, patient will be admitted for observation and ACS rule out There was initial concern by ED provider that epigastric pain was related to car diac disease. EKG showed no acute ischemic changes. Highly sensitive troponin was flat 3.8, 5.6, < 3.5. He was seen in consultation by Cardiology who did not feel that his symptoms were cardiac in nature. He underwent recent stress test (08/23) which showed no underlying ischemia. No further workup indicated at this time. Pain likely GI in origin. Should continue Pepcid and follow up as outpatient. No changes were made to baseline medications. Attending Attestation: Admitted to rule out ACS. Seen by cardiology and cleared. Symptoms like GERD related. Continue Pepcid. [facility], patient will be following up with his surgical / GI doctors at [facility] in the coming week for further care. <MONIKA Christianson - Last Filed: 12/26/20 12:20> Time Spent with Patient Time attestation: Total time spent providing and/or coordinating discharge services: <MONIKA Christianson - Last Filed: 12/26/20 12:20> Discharge coordination time: Greater than 30 minutes <MONIKA Christianson - Last Filed: 12/26/20 12:20> Physical Exam Vital Signs: Vital Signs: Last Vital Signs Temp 97.1 F 12/26/20 11:38 Pulse 100 12/26/20 11:38 Resp 17 12/26/20 11:38 BP 153/83 H 12/26/20 11:38 Pulse Ox 98 12/26/20 11:38 Body Mass Index 34.9 <MONIKA Christianson - Last Filed: 12/26/20 12:20> Const: Nutritional Appearance: well nourished <MONIKA Christianson - Last Filed: 12/26/20 12:20> HENMT: Head: Yes normocephalic and Yes atraumatic <MONIKA Christianson - Last Filed: 12/26/20 12:20> Eyes: Sclerae: sclerae normal <MONIKA Christianson - Last Filed: 12/26/20 12:20> Chest: Chest palpation & inspection: normal inspection of the chest <MONIKA Christianson - Last Filed: 12/26/20 12:20> Resp: Effort & Inspection: normal respiratory effort and no respiratory distress <MONIKA Christianson - Last Filed: 12/26/20 12:20> Cardio: Rate: regular rate <MONIKA Christianson - Last Filed: 12/26/20 12:20> Rhythm: regular rhythm <MONIKA Christianson - Last Filed: 12/26/20 12:20> GI: Palpation (GI): Soft to palpation <MONIKA Christianson - Last Filed: 12/26/20 12:20> Neuro: Cranial nerves: Yes CN's II-XII intact bilaterally and Yes Bilaterally intact EOM present <MONIKA Christianson - Last Filed: 12/26/20 12:20> DS: Data Data Completed and Pending Labs on day of discharge: Laboratory Results - last 24 hr 12/25/20 12/25/20 12/25/20 17:32 17:32 17:32 WBC Cancelled RBC Cancelled Hgb Cancelled Hct Cancelled MCV Cancelled MCH Cancelled MCHC Cancelled RDW Cancelled Plt Count Cancelled MPV Cancelled Immature Gran % (Auto) Cancelled Neut % (Auto) Cancelled Lymph % (Auto) Cancelled Johnson % (Auto) Cancelled Eos % (Auto) Cancelled Baso % (Auto) Cancelled Lymph # (Auto) Cancelled Johnson # (Auto) Cancelled Eos # (Auto) Cancelled Baso # (Auto) Cancelled Abs Immat Gran (auto) Cancelled Absolute Neuts (auto) Cancelled Absolute Nucleated RBC Cancelled Nucleated RBC % (auto) Cancelled Hold Blue Top SEE NOTE Sodium 138 Potassium 5.0 Chloride 104 Carbon Dioxide 20 L Anion Gap 19 BUN 35 H Creatinine 1.73 H Estim Creat Clear Calc 49.3 Estimated GFR 41 POC Glucose Random Glucose 119 H Calcium 9.4 Total Bilirubin Direct Bilirubin AST ALT Alkaline Phosphatase Troponin I High Sens Total Protein Albumin Lipase COVID-19 (LAYO) COVIDRebtel 12/25/20 12/25/20 12/25/20 17:32 18:02 18:06 WBC 10.1 RBC 4.29 L Hgb 11.8 L Hct 36.4 L MCV 84.8 MCH 27.5 MCHC 32.4 RDW 12.5 Plt Count 238 MPV 10.5 Immature Gran % (Auto) 0.3 Neut % (Auto) 53.6 Lymph % (Auto) 32.1 Johnson % (Auto) 9.1 Eos % (Auto) 4.4 H Baso % (Auto) 0.5 Lymph # (Auto) 3.3 Johnson # (Auto) 0.9 Eos # (Auto) 0.5 H Baso # (Auto) 0.1 Abs Immat Gran (auto) 0.03 Absolute Neuts (auto) 5.4 Absolute Nucleated RBC 0.000 Nucleated RBC % (auto) 0.0 Hold Blue Top Sodium Potassium Chloride Carbon Dioxide Anion Gap BUN Creatinine Estim Creat Clear Calc Estimated GFR POC Glucose 97 Random Glucose Calcium Total Bilirubin Direct Bilirubin AST ALT Alkaline Phosphatase Troponin I High Sens 3.8 Total Protein Albumin Lipase COVID-19 (LAYO) COVIDRebtel 12/25/20 12/25/20 12/26/20 19:16 23:49 05:43 WBC 9.4 RBC 3.91 L Hgb 10.9 L Hct 33.9 L MCV 86.7 MCH 27.9 MCHC 32.2 RDW 12.6 Plt Count 220 MPV 11.1 Immature Gran % (Auto) 0.2 Neut % (Auto) 57.3 Lymph % (Auto) 29.6 Johnson % (Auto) 9.1 Eos % (Auto) 3.5 Baso % (Auto) 0.3 Lymph # (Auto) 2.8 Johnson # (Auto) 0.9 Eos # (Auto) 0.3 Baso # (Auto) 0.0 Abs Immat Gran (auto) 0.02 Absolute Neuts (auto) 5.4 Absolute Nucleated RBC 0.000 Nucleated RBC % (auto) 0.0 Hold Blue Top Sodium Potassium Chloride Carbon Dioxide Anion Gap BUN Creatinine Estim Creat Clear Calc Estimated GFR POC Glucose Random Glucose Calcium Total Bilirubin Direct Bilirubin AST ALT Alkaline Phosphatase Troponin I High Sens 5.6 Total Protein Albumin Lipase COVID-19 (LAYO) Negative COVID-19 Clin Com See Note 12/26/20 12/26/20 12/26/20 05:43 05:43 07:05 WBC RBC Hgb Hct MCV MCH MCHC RDW Plt Count MPV Immature Gran % (Auto) Neut % (Auto) Lymph % (Auto) Johnson % (Auto) Eos % (Auto) Baso % (Auto) Lymph # (Auto) Johnson # (Auto) Eos # (Auto) Baso # (Auto) Abs Immat Gran (auto) Absolute Neuts (auto) Absolute Nucleated RBC Nucleated RBC % (auto) Hold Blue Top Sodium 142 Potassium 4.9 Chloride 105 Carbon Dioxide 25 Anion Gap 17 BUN 37 H Creatinine 1.85 H Estim Creat Clear Calc 46.1 Estimated GFR 38 POC Glucose 141 H Random Glucose 186 H D Calcium 9.0 Total Bilirubin 0.2 Direct Bilirubin < 0.2 AST 13 D ALT 7 Alkaline Phosphatase 78 Troponin I High Sens < 3.5 Total Protein 7.2 Albumin 4.1 Lipase 53 COVID-19 (LAYO) COVID-realSociable Com 12/26/20 11:22 WBC RBC Hgb Hct MCV MCH MCHC RDW Plt Count MPV Immature Gran % (Auto) Neut % (Auto) Lymph % (Auto) Johnson % (Auto) Eos % (Auto) Baso % (Auto) Lymph # (Auto) Johnson # (Auto) Eos # (Auto) Baso # (Auto) Abs Immat Gran (auto) Absolute Neuts (auto) Absolute Nucleated RBC Nucleated RBC % (auto) Hold Blue Top Sodium Potassium Chloride Carbon Dioxide Anion Gap BUN Creatinine Estim Creat Clear Calc Estimated GFR POC Glucose 190 H Random Glucose Calcium Total Bilirubin Direct Bilirubin AST ALT Alkaline Phosphatase Troponin I High Sens Total Protein Albumin Lipase COVID-19 (LAYO) COVID-19 Clin Com <MONIKA Christianson - Last Filed: 12/26/20 12:20> Discharge Plan Discharge Patient Disposition: Home, Self-Care <MONIKA Christianson - Last Filed: 12/26/20 12:20> Referrals: Physician,Unknown [Primary Care Provider] - <MONIKA Christianson - Last Filed: 12/26/20 12:20> Discharge Medications: Continued aspirin [Adult Low Dose Aspirin] 81 mg tablet,delayed release (DR/EC) 81 mg PO DAILY 90 Days Qty: 90 RF: 1 nifedipine 30 mg tablet extended release 24hr 30 mg PO DAILY 90 Days Qty: 90 RF: 1 simvastatin 40 mg tablet 40 mg PO BEDTIME 30 Days Qty: 30 RF: 11 losartan 50 mg tablet 50 mg PO DAILY 30 Days Qty: 30 RF: 10 tamsulosin 0.4 mg capsule 0.4 mg PO BEDTIME 30 Days Qty: 30 RF: 6 (DME) lancets [FreeStyle Lancets] 28 gauge misc See Rx Instructions .ROUTE .MEDSUPPLY Qty: 100 RF: 5 Levemir FlexTouch U-100 Insuln 100 unit/mL (3 mL) insulin pen 58 unit subcut BID 30 Days Qty: 45 RF: 3 pen needle, diabetic [Easy Touch] 31 gauge x 5/16 needle 1 ea subcut TID 30 Days Qty: 100 RF: 6 blood sugar diagnostic [FreeStyle Lite Strips] Strip 1 strip miscellaneous TID 30 Days Qty: 100 RF: 11 pen needle, diabetic [Easy Touch] 31 gauge x 5/16 needle 1 ea subcut TID Qty: 100 RF: 11 sennosides [Evac-U-Gen (sennosides)] 8.6 mg tablet 8.6 mg PO BID Qty: 60 RF: 2 empagliflozin [Jardiance] 10 mg tablet 10 mg PO QAM Qty: 28 RF: 2 sucralfate 1 gram tablet 1 g PO QID 30 Days Qty: 120 RF: 6 metoprolol succinate 25 mg tablet extended release 24 hr 25 mg PO BEDTIME Qty: 28 RF: 4 ursodiol 300 mg capsule 300 mg PO BID Qty: 56 RF: 1 Trulicity 1.5 mg/0.5 mL pen injector 1.5 mg subcut MO@1000 RF: 0 ergocalciferol (vitamin D2) [Vitamin D2] 1,250 mcg (50,000 unit) capsule 1,250 mcg PO Q30D RF: 0 acetaminophen [Tylenol] 325 mg tablet 650 mg PO Q6H PRN (Reason: temp, headache or general discomfort) RF: 0 ferrous sulfate 325 mg (65 mg iron) Tablet 325 mg PO DAILY RF: 0 meclizine 25 mg tablet 25 mg PO Q6H PRN (Reason: Dizziness) RF: 0 polyethylene glycol 3350 [Miralax] 17 gram/dose powder 17 g PO BID RF: 0 guaifenesin 100 mg/5 mL Liquid 300 mg PO Q4H PRN (Reason: Cough) RF: 0 insulin lispro [Humalog KwikPen Insulin] 100 unit/mL Insulin Pen 8 unit SUBCUT QPM RF: 0 insulin lispro [Humalog KwikPen Insulin] 100 unit/mL Insulin Pen 4 unit SUBCUT DAILY RF: 0 Aspercreme with Aloe 10 % Cream 1 appl TOPICAL TID PRN (Reason: Pain) RF: 0 alum-mag hydroxide-simeth [Mi-Acid] 200-200-20 mg/5 mL Suspension 7.5 ml PO QID RF: 0 risperidone [Risperdal] 0.5 mg tablet 0.5 mg PO BID RF: 0 trazodone 50 mg tablet 25 mg PO BEDTIME RF: 0 lactulose [Enulose] 10 gram/15 mL solution 10 g PO Q72H PRN (Reason: Constipation) RF: 0 hydrocortisone valerate 0.2 % cream 1 applic topical BID PRN (Reason: Itching) RF: 0 ascorbic acid (vitamin C) 500 mg capsule 500 mg PO BID RF: 0 lorazepam [Ativan] 0.5 mg tablet 0.5 mg PO DAILY PRN (Reason: Anxiety) RF: 0 famotidine [Pepcid] 20 mg tablet 20 mg PO BID PRN (Reason: acid reflux) 90 Days Qty: 90 RF: 1 hydralazine 50 mg tablet 50 mg PO BID Qty: 60 RF: 6 insulin lispro [Humalog KwikPen Insulin] 100 unit/mL insulin pen 4 - 12 unit subcut BID 30 Days Qty: 15 RF: 3 <MONIKA Christianson - Last Filed: 12/26/20 12:20> Discharge Orders: Discharge Order (Routine); Ordered 12/26/20 Ordered By: Erum Carpenter <MONIKA Christianson - Last Filed: 12/26/20 12:20> Activity on Discharge: As tolerated <MONIKA Christianson - Last Filed: 12/26/20 12:20> As tolerated <Aki Murphy MD - Last Filed: 12/26/20 16:22> Stand Alone Forms: Patient Portal Discharge page <MONIKA Christianson - Last Filed: 12/26/20 12:20> Care Plan Goals: See below <MONIKA Christianson - Last Filed: 12/26/20 12:20> Health Concerns: Epigastric pain/ACS ruled out <MONIKA Christianson - Last Filed: 12/26/20 12:20> Plan of Treatment: Epigastric pain - recommend to continue pepcid and follow up with PCP as outpatient. <MONIKA Christianson - Last Filed: 12/26/20 12:20> Discharge Date/Time: 12/26/20 13:50 <MONIKA Christianson - Last Filed: 12/26/20 12:20>
--- NOTE | 2020-12-26 12:18 | MHC.CM.PN ---
Patient has been medically cleared for dc to home (return to his [facility])today.
--- NOTE | 2020-12-26 13:02 | MHC.CM.PN ---
Per [facility] Staff/Catreese's request, Patient will return to his [facility] today at 1:30 PM, via [facility].CM has left 2 detailed messages for Guardian/Caitlin at [phone].
== END 2020-12-26 13:50 | disposition home or self-care (01) ==
LOC: HO.ED 12-26 00:13 → HO.IMC 12-26 00:38
PROVIDERS: Physician Assistant Medical; Admitting Provider Internal Medicine; Emergency Provider Emergency Medicine; Visit Provider Family Medicine
DX: R10.13 Epigastric pain (principal); R07.2 Precordial pain; I12.9 Hypertensive chronic kidney disease with stage 1 through stage 4 chronic kidney disease, or unspecified chronic kidney disease; E11.22 Type 2 diabetes mellitus with diabetic chronic kidney disease; E11.21 Type 2 diabetes mellitus with diabetic nephropathy; N18.30 Chronic kidney disease, stage 3 unspecified; K21.9 Gastro-esophageal reflux disease without esophagitis; E55.9 Vitamin D deficiency, unspecified; Z88.6 Allergy status to analgesic agent; Z20.822 Contact with and (suspected) exposure to COVID-19; Z88.8 Allergy status to other drugs, medicaments and biological substances; Z79.4 Long term (current) use of insulin; Z79.899 Other long term (current) drug therapy
CPT/HCPCS: 36415; 71045; 80048; 80076; 82947; 83690; 84484; 85025; 87635; 93005; 96374; 99219; 99285

== ENCOUNTER → 2021-01-13 14:52 | Outpatient (BNVA) | payer MEDICAID, SELFPAY | PROVIDERS: Visit Provider Surgery | DX: C44.90 Unspecified malignant neoplasm of skin, unspecified (principal) | CPT/HCPCS: 99212 ==

== ENCOUNTER → 2021-01-31 10:38 | Outpatient (BNVA) | payer MEDICAID, SELFPAY | PROVIDERS: PCP Hospitalist; Visit Provider Nurse Practitioner Gerontology | DX: E11.649 Type 2 diabetes mellitus with hypoglycemia without coma (principal); E11.42 Type 2 diabetes mellitus with diabetic polyneuropathy; I12.9 Hypertensive chronic kidney disease with stage 1 through stage 4 chronic kidney disease, or unspecified chronic kidney disease; E11.22 Type 2 diabetes mellitus with diabetic chronic kidney disease; N18.30 Chronic kidney disease, stage 3 unspecified; E78.5 Hyperlipidemia, unspecified; E55.9 Vitamin D deficiency, unspecified; Z79.4 Long term (current) use of insulin; Z71.3 Dietary counseling and surveillance | CPT/HCPCS: 82947; 99212 ==

== ENCOUNTER → 2021-02-17 10:35 | Outpatient (BNVA) | payer MEDICAID, SELFPAY | PROVIDERS: PCP Hospitalist; Referring Provider Hospitalist; Visit Provider Internal Medicine Cardiovascular Disease | DX: I10 Essential (primary) hypertension (principal); R07.9 Chest pain, unspecified | CPT/HCPCS: 99212 ==

== ENCOUNTER 2021-02-19 08:10 | Outpatient (REF) | payer MEDICAID, SELFPAY ==
[2021-02-19 10:54] LABS: Alanine Aminotransferase 10 U/L (0-40); Albumin Level 4.7 g/dL (3.5-5.0); Alkaline Phosphatase 76 U/L (39-117); Anion Gap 14 (12-20); Aspartate Amino Transferase 10 U/L (5-37); Bilirubin Total 0.3 mg/dL (0.0-1.0); Blood Urea Nitrogen 36 mg/dL (9-16); Calcium 10.1 mg/dL (8.4-10.2); Carbon Dioxide 27 mmol/L (22-29); Chloride 106 mmol/L (96-108); Cholesterol 124 mg/dL; Estimated Glomerular Filt Rate 33; Glucose Fasting 134 mg/dL (60-99); HDL Cholesterol 35 mg/dL; Iron 54 mcg/dL (45-160); LDL Cholesterol Calculated 71 mg/dl; Percent Iron Saturation 16 % (15-50); Potassium 5.2 mmol/L (3.3-5.1); Sodium 142 mmol/L (135-145); Total Iron Binding Capacity 342 mcg/dL (228-428); Total Protein 8.2 g/dL (6.5-8.0); Triglycerides 94 mg/dL; Unsaturated Iron Binding 288 ug/dL
[2021-02-19 11:35] LABS: Creatinine Urine 93.85 mg/dL; Microalbum/Creatinine Ratio Ur 154.5 ug/mg cr
== END 2021-02-19 08:11 | disposition home or self-care (01) ==
LOC: HO.LAB 08:10
PROVIDERS: Absent Provider Hospitalist; PCP Hospitalist; Visit Provider Nurse Practitioner Gerontology
DX: E11.21 Type 2 diabetes mellitus with diabetic nephropathy (principal); E11.22 Type 2 diabetes mellitus with diabetic chronic kidney disease; N18.31 Chronic kidney disease, stage 3a; D63.1 Anemia in chronic kidney disease; Z79.4 Long term (current) use of insulin
CPT/HCPCS: 36415; 80053; 80061; 82043; 83540

== ENCOUNTER 2021-02-28 12:11 | Outpatient (REF) | payer MEDICAID, SELFPAY ==
[2021-02-28 13:42] LABS: Anion Gap 12 (12-20); Blood Urea Nitrogen 38 mg/dL (9-16); Calcium 9.8 mg/dL (8.4-10.2); Carbon Dioxide 31 mmol/L (22-29); Chloride 103 mmol/L (96-108); Estimated Glomerular Filt Rate 35; Glucose Random 118 mg/dL (60-115); Potassium 4.9 mmol/L (3.3-5.1); Sodium 141 mmol/L (135-145)
== END 2021-02-28 12:12 | disposition home or self-care (01) ==
LOC: HO.LAB 12:11
PROVIDERS: PCP Hospitalist; Visit Provider Nurse Practitioner Gerontology
DX: E11.649 Type 2 diabetes mellitus with hypoglycemia without coma (principal)
CPT/HCPCS: 36415; 80048

== ENCOUNTER → 2021-04-03 10:18 | Outpatient (BNVA) | payer MEDICAID, SELFPAY | PROVIDERS: PCP Hospitalist; Visit Provider Nurse Practitioner Gerontology | DX: E11.649 Type 2 diabetes mellitus with hypoglycemia without coma (principal); E11.42 Type 2 diabetes mellitus with diabetic polyneuropathy; E11.22 Type 2 diabetes mellitus with diabetic chronic kidney disease; I12.9 Hypertensive chronic kidney disease with stage 1 through stage 4 chronic kidney disease, or unspecified chronic kidney disease; N18.30 Chronic kidney disease, stage 3 unspecified; E78.5 Hyperlipidemia, unspecified; E55.9 Vitamin D deficiency, unspecified; Z79.4 Long term (current) use of insulin | CPT/HCPCS: 82947; 99212 ==

== ENCOUNTER 2021-04-27 20:44 | Inpatient (IN) | payer MEDICAID, SELFPAY ==
--- NOTE | ~2021-04-27 | MR_ITS ---
MRI OF THE BRAIN WITHOUT IV CONTRAST INDICATION: CVA. COMPARISON: Head and neck CTA 04/27/2021. TECHNIQUE: Multiplanar multisequence MR imaging of the brain was obtained without IV contrast. FINDINGS: Chronic infarcts within the left and right cerebral hemispheres are redemonstrated. There is global cerebral volume loss and there is background chronic microangiopathy. There is no hydrocephalus, extra-axial surface collection, or herniation. The major flow voids at the skull base are preserved. Possible punctate acute infarct within the left marquez on image 11 of series 3. There is no intracranial hemorrhage on the gradient recalled echo acquisition. The midline structures are normal. The cerebellar tonsils are normally positioned. The craniocervical junction is normal. Osseous marrow signal intensity is homogenous. The visualized soft tissues are unremarkable. MR/MR head/brain wo con IMPRESSION: - Possible punctate acute infarct within the left marquez on image 11 of series 3. No additional acute infarcts. - Chronic infarcts within the left and right cerebral hemispheres are redemonstrated. There is global cerebral volume loss and there is background chronic microangiopathy.
--- NOTE | ~2021-04-27 | XR_ITS ---
EXAMINATION: XR CHEST CLINICAL INFORMATION: Stroke COMPARISON: 12/25/2020 TECHNIQUE: Frontal view of the chest was obtained. FINDINGS: No significant abnormality is noted involving the heart, lungs, mediastinum, bony thorax or soft tissues. XR/XR chest 1V IMPRESSION: Unremarkable examination.
--- NOTE | ~2021-04-27 | CT_ITS ---
EXAMINATION: CT HEAD WITHOUT CONTRAST (STROKE PROTOCOL) CLINICAL INFORMATION: Stroke protocol. COMPARISON: Head CT dated 03/02/2020. TECHNIQUE: Contiguous axial imaging was performed from the skull base to vertex without intravenous administration of contrast. This CT examination was performed using dose optimization techniques as appropriate, variously including the following: *Automated exposure control *Adjustment of mA and/or kV according to patient size (this includes techniques or standardized protocols for targeted exams where dose is matched to indication/reason for exam; i.e. extremities or head) *Use of iterative reconstruction technique DLP: 880 mGy-cm FINDINGS: Multifocal encephalomalacia is noted in a similar pattern throughout the cerebral hemispheres relative to most recent comparison head CT examination performed 03/02/2020. Iyer-white matter of the insular cortex is preserved. Similar appearance of encephalomalacia at the posterior aspect of the left lentiform nucleus. Remaining lentiform nucleus iyer-white matter differentiation is preserved bilaterally. No hyperdense MCA vessel sign. No acute intracranial hemorrhage. There is no visible soft tissue trauma or skull fracture. There is no acute intracranial hemorrhage, midline shift, mass effect, intra- or extra-axial fluid collection. Similar appearance of ex vacuo dilatation of the lateral ventricles. Sulci are unremarkable. The basal cisterns are patent. The orbital contents are unremarkable bilaterally. Visualized paranasal sinuses and mastoid air cells are clear. CT/CT head for stroke IMPRESSION: --No acute intracranial pathology. --Similar pattern of multifocal chronic ischemic/encephalomalacia changes throughout the cerebral hemispheres bilaterally, unchanged relative to 03/02/2020 comparison examination. If suspicion persists for acute infarct, MRI is recommended for further evaluation. This critical result was discussed with Dr. Corbin at 2105 hours on 04/27/2021. It was ascertained that the content and urgency of the report was understood at the time of direct communication.
--- NOTE | ~2021-04-27 | CT_ITS ---
CT ANGIOGRAM NECK WITH CONTRAST CT ANGIOGRAM BRAIN WITH CONTRAST CLINICAL INFORMATION: Stroke. COMPARISON: Head CT performed earlier the same day. TECHNIQUE: Test bolus sequences followed by intravenous administration 70 mL of Omnipaque 350. Helical imaging was performed in the axial plane from the thoracic inlet to the skull vertex. Delayed postcontrast imaging of the head was also performed. The data was processed at the cytotechnologist/cytology supervisor workstation for generation of MIP sequences. Angled MIPs and volume rendered reformatted images were also generated at an offline 3D workstation under concurrent supervision. Stenoses are assessed in accordance with NASCET criteria unless otherwise indicated. This CT examination was performed using dose optimization techniques as appropriate, variously including the following: *Automated exposure control *Adjustment of mA and/or kV according to patient size (this includes techniques or standardized protocols for targeted exams where dose is matched to indication/reason for exam; i.e. extremities or head) *Use of iterative reconstruction technique FINDINGS: BRAIN: No definite acute intracranial findings however assessment is limited by the degree of extensive chronic ischemic changes throughout the cerebral hemispheres bilaterally. If there is acute neurologic deficit, MRI would be more sensitive in assessing for any superimposed acute infarcts. [There is no intracranial hemorrhage, hydrocephalus, extra-axial surface collection, midline shift, or other herniation pattern. Iyer to white matter differentiation is diffusely maintained without evidence of an evolved acute territorial infarct. The basilar cisterns are preserved. No significant soft tissue abnormality. No acute osseous abnormality. The paranasal sinuses and the mastoid air cells are well aerated.] Chronic traumatic deformity of the left lamina papyracea. CERVICAL SOFT TISSUES AND LUNG APICES: Cervical spondylosis including advanced spondylitic changes at C5-C6 where a disc osteophyte complex results in potential mass effect on the cervical cord that can be further assessed with a cervical spine MRI if there is cervical myelopathy clinically. Imaged upper lungs are clear. No significant soft tissue findings within the neck. NECK CTA: Left common carotid artery arises from the brachiocephalic artery, an anatomic variant. Proximal arch vessels are non-stenotic. The left vertebral artery is dominant. Atherosclerotic calcification results in a severe stenosis of the right vertebral artery origin. Both vertebral arteries are otherwise widely patent throughout their extracranial cervical course. Artifact versus a filling defect within the distal right common carotid artery just proximal to the carotid bifurcation that could reflect adherent thrombus or plaque resulting in a possible high-grade stenosis that is not well assessed secondary to artifact. Lipid rich and calcific atherosclerotic plaque results in a less than 50% stenosis of the proximal right internal carotid artery. Atherosclerotic disease results in a less than 50% stenosis of the proximal left cervical internal carotid artery. BRAIN CTA: There is atherosclerotic calcification throughout the carotid siphons bilaterally resulting in mild luminal narrowing. The left A1 JUANPABLO segment is congenitally absent. 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 [Chronic appearing partial occlusion of the distal right M1 MCA segment and several proximal right M2 MCA branches associated with collaterals reconstituting the more distal right middle cerebral artery branches. There is a severe stenosis involving the distal left M1 MCA segment. There is oligemia within the right MCA territory and an acute on chronic occlusions and the right MCA distribution be difficult to exclude without any prior studies available for comparison. CT/CT angio head neck stroke IMPRESSION: - No definite acute intracranial findings however assessment is limited by the degree of extensive chronic ischemic changes throughout the cerebral hemispheres bilaterally. If there is acute neurologic deficit, MRI would be more sensitive in assessing for any superimposed acute infarcts. - Chronic appearing partial occlusion of the distal right M1 MCA segment and several proximal right M2 MCA branches associated with collaterals reconstituting the more distal right middle cerebral artery branches. There is oligemia within the right MCA territory and an acute on chronic occlusion within the right MCA distribution would be difficult to exclude without any prior studies available for comparison. - There is a severe stenosis involving the distal left M1 MCA segment. - Artifact versus a filling defect within the distal right common carotid artery just proximal to the carotid bifurcation that could reflect adherent thrombus or plaque resulting in a possible high-grade stenosis that is not well assessed secondary to artifact. Lipid rich and calcific atherosclerotic plaque results in a less than 50% stenosis of the proximal right internal carotid artery. - Atherosclerotic calcification results in a severe stenosis of the right vertebral artery origin. - Cervical spondylosis including advanced spondylitic changes at C5-C6 where a disc osteophyte complex results in potential mass effect on the cervical cord that can be further assessed with a cervical spine MRI if there is cervical myelopathy clinically. Stroke protocol CTA result discussed with Dr. Corbin at 9:53 PM on 04/27/2021.
--- NOTE | 2021-04-27 20:49 | ECG_ITS ---
Test Reason : STROKE Blood Pressure : / mmHG Vent. Rate : 081 BPM Atrial Rate : 081 BPM P-R Int : 160 ms QRS Dur : 088 ms QT Int : 390 ms P-R-T Axes : 055 -12 039 degrees QTc Int : 453 ms Normal sinus rhythm Normal ECG No significant changes when compared with the previous EKG of 25 december 2020 Referred By: Amalia Corbin Electronically Signed By:ELHAM JOE
[2021-04-27 20:53] VITALS: BMI 33.0
[2021-04-27 20:54] LABS: Prothrombin Time Whole Bld POC 12.2 sec (11.1-13.5)
[2021-04-27 20:55] LABS: Glucose, Whole Blood 244 mg/dL (60-115)
--- NOTE | 2021-04-27 20:55 | ED_ITS ---
HPI - Neuro Symptoms/Deficit General Chief Complaint: Dizziness Stated Complaint: ?stroke Time Seen by Provider: 04/27/21 20:48 Source: patient, EMS and instructor ground services Mode of arrival: EMS History of Present Illness HPI Narrative: This is a 60-year-old male with past medical history significant for CVA with left-sided hemiparesis, hypertension, diabetes, chronic kidney disease who presents to the hospital from [facility] after he felt his speech is heavy and noticed by the staff that he has very slight slurred speech, and also right facial droop. Patient also complained of dizziness, headache, no chest pain, no abdominal pain. Related Data Home Medications Medication Instructions Recorded Confirmed hydrocortisone valerate 0.2 % 1 applic TOPICAL BID PRN 07/24/20 04/03/21 topical cream lorazepam 0.5 mg tablet 0.5 mg PO DAILY PRN 07/24/20 04/03/21 risperidone 0.5 mg tablet 0.5 mg PO BID 07/24/20 04/03/21 trazodone 50 mg tablet 25 mg PO BEDTIME 07/24/20 04/03/21 Aspercreme with Aloe 1 appl TOPICAL TID PRN 12/25/20 04/03/21 acetaminophen [Tylenol] 650 mg PO Q6H PRN 12/25/20 04/27/21 guaifenesin 300 mg PO Q4H PRN 12/25/20 04/03/21 meclizine 25 mg PO Q6H PRN 12/25/20 04/03/21 Previous Rx's Medication Instructions Recorded nifedipine 30 mg tablet,extended 30 mg PO DAILY 90 Days #90 tab 07/09/20 release 24 hr famotidine 20 mg tablet 20 mg PO BID PRN 90 Days #90 tab 07/24/20 losartan 50 mg tablet 50 mg PO DAILY 30 Days #30 tab 07/30/20 simvastatin 40 mg tablet 40 mg PO BEDTIME 30 Days #30 tab 07/30/20 lancets 28 gauge #100 ea 07/31/20 pen needle, diabetic 31 gauge x 1 ea SUBCUT TID 30 Days #100 ea 10/03/2002/16 blood sugar diagnostic 1 strip MISCELLANEOUS TID 30 Days 10/18/20 #100 ea pen needle, diabetic 31 gauge x 1 ea SUBCUT TID #100 ea 10/22/2002/16 sucralfate 1 gram tablet 1 g PO QID 30 Days #120 tab 12/03/20 metoprolol succinate 25 mg 25 mg PO BEDTIME #28 tab 12/17/20 tablet,extended release 24 hr aspirin 81 mg tablet,delayed 81 mg PO DAILY #28 tab 01/13/21 release aluminum-mag hydroxide-simethicone 7.5 ml PO QID PRN #355 ml 01/15/21 400 mg-400 mg-40 mg/5 mL oral susp hydralazine 50 mg tablet 50 mg PO BID #60 tab 01/15/21 lactulose 10 gram/15 mL oral 30 ml PO DAILY PRN #473 ml 01/15/21 solution ascorbic acid (vitamin C) 500 mg 500 mg PO BID 30 Days #60 cap 02/01/21 capsule dextrose 40 % oral gel 15 g PO DIRECTED #112.5 g 02/06/21 ergocalciferol (vitamin D2) 1,250 1,250 mcg PO Q4W #1 cap 02/28/21 mcg (50,000 unit) capsule ursodiol 300 mg capsule 300 mg PO BID #56 cap 02/28/21 polyethylene glycol 3350 17 17 g PO BID 30 Days #1020 g 03/18/21 gram/dose oral powder dulaglutide 3 mg/0.5 mL 3 mg SUBCUT QWEEK 28 Days #2 ml 04/03/21 subcutaneous pen injector insulin degludec 200 unit/mL (3 40 unit SUBCUT DAILY 30 Days #9 ml 04/03/21 mL) subcutaneous pen sennosides 8.6 mg tablet 8.6 mg PO BID #56 tab 04/10/21 tamsulosin 0.4 mg capsule 0.4 mg PO BEDTIME #28 cap 04/10/21 empagliflozin 10 mg tablet 10 mg PO QAM #28 tab 04/16/21 Allergies Allergy/AdvReac Type Severity Reaction Status Date / Time amlodipine [From [facility]] Allergy Severe due to Verified 04/03/21 11:04 poor renal function ibuprofen Allergy Severe 2/2 renal Verified 04/03/21 11:04 function Review of Systems Review of Systems: All other systems are reviewed and are negative Constitutional: Reports as per HPI and Reports no additional constitutional complaints Eyes: Reports as per HPI and Reports no additional eye complaints Reports system reviewed and no additional complaints, except as documented Cardiovascular: Reports as per HPI and Reports no additional cardiovascular complaints Respiratory: Reports as per HPI and Reports no additional respiratory complaints Gastrointestinal: Reports as per HPI and Reports no additional gastrointestinal complaints Genitourinary: Reports no additional female genitourinary complaints Musculoskeletal: Reports no additional musculoskeletal complaints Skin/Breast: Reports system reviewed and no additional complaints, except as docu Psychiatric: Reports no additional psychiatric complaints Endocrine: Reports no additional endocrine complaints Hematologic/Lymphatic: Reports no additional hematologic/lymphatic complaints Allergic/Immunologic: Reports no additional allergic/immunologic complaints Reports system reviewed and no additional complaints, except as documented and Reports Abnormal speech present [facility] Past Medical History Medical History Anemia Aphagia Bronchitis Chronic kidney disease, stage 3 CKD (chronic kidney disease) Constipation Diabetes Diabetes type 2, uncontrolled Epigastric pain Essential hypertension GERD (gastroesophageal reflux disease) Hearing loss Hemiplegia HTN (hypertension) Hyperlipidemia Hyperlipidemia Hypertensive chronic kidney disease with stage 1 through stage 4 chronic kidney disease, or unspecified chronic kidney disease Hypoglycemia unawareness associated with type 2 diabetes mellitus Postoperative bleeding from incision Preglaucoma Skin cancer Skin lesion Stroke Type 2 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 Unsteady gait Vascular device, implant, or graft complication Vitamin D deficiency Vitamin D deficiency Surgical History History of exploratory laparotomy History of surgical removal of skin lesion Family History Family History Father Myocardial infarction Mother Throat cancer Diabetes Family/Other FH: mental illness Brother In good health Sister In good health Sister In good health Daughter In good health Social History Social History Household Members: Other Household Members Other:: intermediate Alcohol intake: never Advance Directives: Yes Advance Directives on File: Yes Advance Directives Date on File: 12/02/20 service: No Current occupational status: disabled Physical Exam Vital Signs: Vital Signs: Last Vital Signs Temp 97.7 F 04/27/21 21:40 Pulse 71 04/27/21 21:40 Resp 19 04/27/21 21:40 BP 120/68 04/27/21 21:40 Pulse Ox 97 04/27/21 21:40 Body Mass Index 33.0 Vital signs have been reviewed as appeared to be correct. Blood pressure normal. Heart rate normal. Respiration rate normal. Temperature normal. Oxygen saturation normal. Appearance: Alert. Oriented X3. No acute distress. Head: Normal external exam. Normocephalic. Atraumatic. No Matthews signs noted. No raccoon eyes noted Eyes: PERRLA. EOMI. Conjunctiva and sclera normal. Eyelids normal. ENT: TM's Normal. Pharynx normal. Uvula midline. Moist mucous membranes. No trismus noted. No drooling noted. No muffled voice noted. Neck: Normal inspection. Neck supple. FROM. No adenopathy. Thyroid Normal. No meningeal signs. No neck mass noted. CVS: Normal heart rate and rhythm. Heart sound normal. No murmurs noted. Pulses normal throughout. Respiratory: No respiratory distress. Painless inspiration. Breath sounds normal. No wheezes/rales/rhonchi noted. Chest nontender. No accessory muscle usage noted or decreased air movement noted. Abdomen: Soft and nontender. Bowel sounds normal in all 4 quadrants. No distention noted. No organomegaly noted. No visible injury noted. Back: No CVA tenderness. Full range of motion noted. Skin: Skin warm and dry. Normal skin color. Normal skin turgor. No don hes/lesions/lacerations noted. Extremities: No lower extremity edema. Extremities exhibit normal range of motion. Extremities nontender. Neuro: Mild left pronator drift (pre-existing), a mild right facial droop.. No sensory deficit. Reflexes normal. Course Course Course Narrative: Assessment and plan. 60-year-old male with history of CVA and residual left side weakness, came in with minor symptoms of right facial droop and slurred speech which is hard to determine on the physical exam the tile layer supervisor at the intermediate confirmed that the patient is speaking at his normal baseline and there is no facial droop which make the patient patient is not a good candidate for tPA and risking the patient for bleed. Patient has unremarkable CT head and CT angio of the head and the neck. Because the patient chronic renal condition will hydrate the patient after getting IV contrast for the CT scan, will consider MRI in the morning. The case was discussed with Dr. Phelan who is in agreement with the plan. MDM - Neuro Symptoms/Deficit Lab Data Attestation: I reviewed the patient's lab results. Result diagrams: 04/27/21 21:36 04/27/21 21:36 Labs: Lab Results 04/27/21 04/27/21 04/27/21 Range/Units 20:51 20:51 21:36 WBC 10.5 (4.8-10.8) X10*3/uL RBC 4.08 L (4.60-5.80) X10*6/uL Hgb 11.4 L (14.0-18.0) g/dl Hct 34.2 L (42-52) % MCV 83.8 (80-98) fL MCH 27.9 (27.0-33.0) pg MCHC 33.3 (31.0-36.0) g/dl RDW 12.7 (11.0-16.0) % Plt Count 206 (160-400) X10*3/uL MPV 10.9 (9.4-12.4) fL Immature Gran % (Auto) 0.2 (0.0-0.4) % Neut % (Auto) 60.6 (45-73) % Lymph % (Auto) 27.2 (20-40) % [place] % (Auto) 8.3 (2-11) % Eos % (Auto) 3.3 (0-4) % Baso % (Auto) 0.4 (0-2) % Lymph # (Auto) 2.9 (1.2-4.9) X10*3/uL [place] # (Auto) 0.9 (0.1-1.2) X10*3/uL Eos # (Auto) 0.4 (0.0-0.4) X10*3/uL Baso # (Auto) 0.0 (0.0-0.2) X10*3/uL Abs Immat Gran (auto) 0.02 (0.00-0.03) X10*3/uL Absolute Neuts (auto) 6.4 (2.0-8.3) X10*3/uL Absolute Nucleated RBC 0.000 (0.0-0.012) X10*3/uL Nucleated RBC % (auto) 0.0 (0.0-0.2) /100WBC PT (9.9-13.0) SEC Whole Blood PT 12.2 (11.1-13.5) sec INR (0.9-1.1) Whole Blood INR 1.0 (0.9-1.1) APTT (24.1-38.0) SEC Sodium (135-145) mmol/L Potassium (3.3-5.1) mmol/L Chloride (96-108) mmol/L Carbon Dioxide (22-29) mmol/L Anion Gap (12-20) BUN (9-16) mg/dL Creatinine (0.5-1.4) mg/dL Estim Creat Clear Calc Estimated GFR POC Glucose 244 H (60-115) mg/dL Random Glucose (60-115) mg/dL Calcium (8.4-10.2) mg/dL Total Creatine Kinase (38-174) U/L Troponin I High Sens (<3.5-35.0) ng/L COVID-19 ([facility]) (Negative) COVID-19 Clin Com 04/27/21 04/27/21 04/27/21 Range/Units 21:36 21:36 21:36 WBC (4.8-10.8) X10*3/uL RBC (4.60-5.80) X10*6/uL Hgb (14.0-18.0) g/dl Hct (42-52) % MCV (80-98) fL MCH (27.0-33.0) pg MCHC (31.0-36.0) g/dl RDW (11.0-16.0) % Plt Count (160-400) X10*3/uL MPV (9.4-12.4) fL Immature Gran % (Auto) (0.0-0.4) % Neut % (Auto) (45-73) % Lymph % (Auto) (20-40) % [place] % (Auto) (2-11) % Eos % (Auto) (0-4) % Baso % (Auto) (0-2) % Lymph # (Auto) (1.2-4.9) X10*3/uL [place] # (Auto) (0.1-1.2) X10*3/uL Eos # (Auto) (0.0-0.4) X10*3/uL Baso # (Auto) (0.0-0.2) X10*3/uL Abs Immat Gran (auto) (0.00-0.03) X10*3/uL Absolute Neuts (auto) (2.0-8.3) X10*3/uL Absolute Nucleated RBC (0.0-0.012) X10*3/uL Nucleated RBC % (auto) (0.0-0.2) /100WBC PT 11.3 (9.9-13.0) SEC Whole Blood PT (11.1-13.5) sec INR 1.0 (0.9-1.1) Whole Blood INR (0.9-1.1) APTT 37.3 (24.1-38.0) SEC Sodium 135 (135-145) mmol/L Potassium 4.6 (3.3-5.1) mmol/L Chloride 102 (96-108) mmol/L Carbon Dioxide 23 (22-29) mmol/L Anion Gap 15 (12-20) BUN 47 H (9-16) mg/dL Creatinine 2.11 H (0.5-1.4) mg/dL Estim Creat Clear Calc 40.7 Estimated GFR 32 POC Glucose (60-115) mg/dL Random Glucose 268 H D (60-115) mg/dL Calcium 9.0 D (8.4-10.2) mg/dL Total Creatine Kinase 73 (38-174) U/L Troponin I High Sens 5.0 (<3.5-35.0) ng/L COVID-19 ([facility]) (Negative) COVID-19 Clin Com 04/27/21 Range/Units 21:42 WBC (4.8-10.8) X10*3/uL RBC (4.60-5.80) X10*6/uL Hgb (14.0-18.0) g/dl Hct (42-52) % MCV (80-98) fL MCH (27.0-33.0) pg MCHC (31.0-36.0) g/dl RDW (11.0-16.0) % Plt Count (160-400) X10*3/uL MPV (9.4-12.4) fL Immature Gran % (Auto) (0.0-0.4) % Neut % (Auto) (45-73) % Lymph % (Auto) (20-40) % [place] % (Auto) (2-11) % Eos % (Auto) (0-4) % Baso % (Auto) (0-2) % Lymph # (Auto) (1.2-4.9) X10*3/uL [place] # (Auto) (0.1-1.2) X10*3/uL Eos # (Auto) (0.0-0.4) X10*3/uL Baso # (Auto) (0.0-0.2) X10*3/uL Abs Immat Gran (auto) (0.00-0.03) X10*3/uL Absolute Neuts (auto) (2.0-8.3) X10*3/uL Absolute Nucleated RBC (0.0-0.012) X10*3/uL Nucleated RBC % (auto) (0.0-0.2) /100WBC PT (9.9-13.0) SEC Whole Blood PT (11.1-13.5) sec INR (0.9-1.1) Whole Blood INR (0.9-1.1) APTT (24.1-38.0) SEC Sodium (135-145) mmol/L Potassium (3.3-5.1) mmol/L Chloride (96-108) mmol/L Carbon Dioxide (22-29) mmol/L Anion Gap (12-20) BUN (9-16) mg/dL Creatinine (0.5-1.4) mg/dL Estim Creat Clear Calc Estimated GFR POC Glucose (60-115) mg/dL Random Glucose (60-115) mg/dL Calcium (8.4-10.2) mg/dL Total Creatine Kinase (38-174) U/L Troponin I High Sens (<3.5-35.0) ng/L COVID-19 ([facility]) Negative (Negative) COVID-19 Clin Com See Note Imaging Data CT angio head and neck: Radiologist's impression: - No definite acute intracranial findings however assessment is limited by the degree of extensive chronic ischemic changes throughout the cerebral hemispheres bilaterally. If there is acute neurologic deficit, MRI would be more sensitive in assessing for any superimposed acute infarcts. - Chronic appearing partial occlusion of the distal right M1 MCA segment and several proximal right M2 MCA branches associated with collaterals reconstituting the more distal right middle cerebral artery branches. There is oligemia within the right MCA territory and an acute on chronic occlusion within the right MCA distribution would be difficult to exclude without any prior studies available for comparison. - There is a severe stenosis involving the distal left M1 MCA segment. - Artifact versus a filling defect within the distal right common carotid artery just proximal to the carotid bifurcation that could reflect adherent thrombus or plaque resulting in a possible high-grade stenosis that is not well assessed secondary to artifact. Lipid rich and calcific atherosclerotic plaque results in a less than 50% stenosis of the proximal right internal carotid artery. - Atherosclerotic calcification results in a severe stenosis of the right vertebral artery origin. - Cervical spondylosis including advanced spondylitic changes at C5-C6 where a disc osteophyte complex results in potential mass effect on the cervical cord that can be further assessed with a cervical spine MRI if there is cervical myelopathy clinically. CT scan - head: Radiologist's impression: --No acute intracranial pathology. --Similar pattern of multifocal chronic ischemic/encephalomalacia changes throughout the cerebral hemispheres bilaterally, unchanged relative to 03/02/2020 comparison examination. If suspicion persists for acute infarct, MRI is recommended for further evaluation. ECG Data Interpretation: Normal sinus rhythm had EGD with beats per minutes, left axis deviation, normal intervals, no ST-T changes. NIH Stroke Scale Level of Consciousness: Alert Level of Consciousness Questions: Answers both questions correctly Level of Consciousness Commands: Performs both tasks correctly Best Gaze: Normal Visual: No visual loss Facial Palsy: Minor paralyis Motor Arm (Right): No drift Motor Arm (Left): Drift (Pre-existing weakness) Motor Leg (Right): No drift Motor Leg (Left): No drift Limb Ataxia: Absent Sensory: Normal Best Language: Mild to moderate aphasia Dysarthia: Normal Extinction and Inattention: No abnormality Score: 3 Discharge Plan Discharge Clinical Impression: Cerebrovascular accident Patient Disposition: Admitted As Inpatient
[2021-04-27] MEDS: iohexoL 350 MG/ML 100 ML INFUS..BTL IV (21:23)
[2021-04-27 21:40] VITALS: BP 120/68; PULSE 71; RESP 19; TEMP 36.5; O2SAT 97
[2021-04-27 21:40] LABS: MANUAL DIFF FLAG NO
[2021-04-27 21:41] LABS: Basophils Percent Auto 0.4 % (0-2); Eosinophils Absolute Auto 0.4 X10*3/uL (0.0-0.4); Eosinophils Percent Auto 3.3 % (0-4); Hematocrit 34.2 % (42-52); Hemoglobin 11.4 g/dl (14.0-18.0); Imm Gran Abs Auto 0.02 X10*3/uL (0.00-0.03); Imm Gran Pct Auto 0.2 % (0.0-0.4); Lymphocytes Absolute Auto 2.9 X10*3/uL (1.2-4.9); Lymphocytes Percent Auto 27.2 % (20-40); Mean Corpuscular HGB Conc 33.3 g/dl (31.0-36.0); Mean Corpuscular Hemoglobin 27.9 pg (27.0-33.0); Mean Corpuscular Volume 83.8 fL (80-98); Mean Platelet Volume 10.9 fL (9.4-12.4); Monocytes Absolute Auto 0.9 X10*3/uL (0.1-1.2); Monocytes Percent Auto 8.3 % (2-11); Neutrophils Absolute Auto 6.4 X10*3/uL (2.0-8.3); Neutrophils Percent Auto 60.6 % (45-73); Platelet Count 206 X10*3/uL (160-400); Red Blood Count 4.08 X10*6/uL (4.60-5.80); Red Cell Distribution Width 12.7 % (11.0-16.0); White Blood Count 10.5 X10*3/uL (4.8-10.8)
[2021-04-27 21:49] LABS: Prothrombin Time 11.3 SEC (9.9-13.0)
[2021-04-27 21:52] LABS: Partial Thromboplastin Time 37.3 SEC (24.1-38.0); Stroke Lab Use COMPLETE
[2021-04-27 22:07] LABS: Anion Gap 15 (12-20); Blood Urea Nitrogen 47 mg/dL (9-16); Carbon Dioxide 23 mmol/L (22-29); Chloride 102 mmol/L (96-108); Creatinine Clr Calc Pharmacy 40.7; Estimated Glomerular Filt Rate 32; Glucose Random 268 mg/dL (60-115); Potassium 4.6 mmol/L (3.3-5.1); Sodium 135 mmol/L (135-145)
[2021-04-27 22:07] LABS: COVID-19 Test Negative (Negative); IDNOW Serial# 9DD0AD1C
[2021-04-27] MEDS: 0.9 % Sodium Chloride 1,000 ML 999 ML IVCONT (22:14)
--- NOTE | 2021-04-27 22:54 | PM.IMHP ---
History of Present Illness Date of Service: 04/27/21 Chief Complaint: Slurred speech and facial droop 60-year-old male; intermediate resident; with the past medical history of hypertension, hyperlipidemia, diabetes, chronic kidney disease, vitamin-D deficiency, history of CVA with left-sided hemiplegia, anemia, hearing impairment, GERD presented to the hospital with a chief complaint of right-sided facial droop and slurred speech; subsequently sent to the hospital for further evaluation. Patient denied any chest pain palpitations lightheadedness dizziness. Denies any fever chills cough. Denies any GI or symptoms. I spoke to the patient's guardian Caitlin who mentioned that patient speech at baseline is very difficult to understand; patient walks with the help of walker; Review of all other systems is negative except mentioned above ER course: Per ER team patient NIH Stroke Scale was 3; CT head and showed no acute findings;CT angio head and neck showed chronic findings; discussed with , recommended no tPA, admitted for MRI in the morning Labs were essentially benign at his baseline; blood pressure stable admitted for further management [facility] Medical History Anemia Aphagia Bronchitis Chronic kidney disease, stage 3 CKD (chronic kidney disease) Constipation Diabetes Diabetes type 2, uncontrolled Epigastric pain Essential hypertension GERD (gastroesophageal reflux disease) Hearing loss Hemiplegia HTN (hypertension) Hyperlipidemia Hyperlipidemia Hypertensive chronic kidney disease with stage 1 through stage 4 chronic kidney disease, or unspecified chronic kidney disease Hypoglycemia unawareness associated with type 2 diabetes mellitus Postoperative bleeding from incision Preglaucoma Skin cancer Skin lesion Squamous cell carcinoma of skin Stroke Type 2 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 Unsteady gait Vascular device, implant, or graft complication Vitamin D deficiency Vitamin D deficiency Family History Father Myocardial infarction Mother Throat cancer Diabetes Family/Other FH: mental illness Brother In good health Sister In good health Sister In good health Daughter In good health Surgical History History of exploratory laparotomy History of surgical removal of skin lesion Social History 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 Household Members Other:: intermediate Housing: Assisted Do you presently have visiting nurse or other home services: Yes Alcohol intake: never Patient Tobacco Use Status: Former Tobacco user Tobacco use type: Cigarette Cigarette Packs Per Day: 2 Cigarettes Per Day: 40.0 Years Smoked: 16 e-Cigarette/Vaping Use: Former Use Second Hand Smoke Exposure: No Advance Directives Date on File: 12/02/20 service: No Current occupational status: disabled Meds Allergies Allergy/AdvReac Type Severity Reaction Status Date / Time amlodipine [From [facility]] Allergy Severe due to Verified 05/01/21 09:22 poor renal function ibuprofen Allergy Severe 2/2 renal Verified 05/01/21 09:22 function Active Medications: Current Medications Generic Name Dose Route Start Last Admin Trade Name Freq PRN Reason Stop Dose Admin Acetaminophen 650 mg 04/27/21 22:24 Acetaminophen 325 Mg Tablet PO Q6H PRN Pain, Mild (Pain Scale 1-3) Sodium Chloride 1,000 mls @ 999 mls/hr 04/27/21 22:15 04/27/21 22:14 Ns IVCONT 04/27/21 23:15 999 mls/hr .Q1H1M CHELSIE Administration Dextrose/Sodium Chloride 1,000 mls @ 50 mls/hr 04/27/21 22:30 D51/2ns IVCONT .Q20H CHELSIE Insulin Human Lispro 0 unit 04/28/21 07:30 Insulin Lispro 100 Unit/Ml 3 Ml Vial SUBCUT QIDACHS [facility] Protocol Magnesium Hydroxide 30 ml 04/27/21 22:24 Milk Of Magnesia 30 Ml Oral.Susp PO DAILY PRN Constipation Melatonin 6 mg 04/27/21 22:24 Melatonin 3 Mg Tablet PO BEDTIME PRN Insomnia Sodium Chloride 3 ml 04/28/21 00:00 0.9 % Sodium Chloride Flush 3 Ml Syringe IVFLUSH QSHIFT [facility] Home Medications Medication Instructions Recorded Confirmed Last Taken Type hydrocortisone valerate 0.2 % 1 applic TOPICAL BID PRN 07/24/20 05/01/21 Unknown History topical cream lorazepam 0.5 mg tablet (Ativan) 0.5 mg PO DAILY PRN 07/24/20 05/01/21 Unknown History risperidone 0.5 mg tablet 0.5 mg PO BID 07/24/20 05/01/21 Unknown History (Risperdal) trazodone 50 mg tablet 25 mg PO BEDTIME 07/24/20 05/01/21 Unknown History acetaminophen 325 mg tablet 650 mg PO Q6H PRN 12/25/20 05/01/21 Unknown History (Tylenol) guaifenesin 100 mg/5 mL oral liquid 300 mg PO Q4H PRN 12/25/20 05/01/21 Unknown History meclizine 25 mg tablet 25 mg PO Q6H PRN MDD 3 12/25/20 05/01/21 Unknown History trolamine salicylate-aloe vera 10 1 appl TOPICAL TID PRN 12/25/20 05/01/21 Unknown History % topical cream (Aspercreme with Aloe) Mi-Acid 7.5 ml PO QID PRN 04/28/21 05/01/21 Unknown History aluminum-mag hydroxide-simethicone 7.5 ml PO BEDTIME PRN 04/28/21 05/01/21 Unknown History 400 mg-400 mg-40 mg/5 mL oral susp dextrose 40 % oral gel (Glutose-45) 15 g PO Q15M MDD 3 04/28/21 05/01/21 Unknown History dulaglutide 3 mg/0.5 mL 1.5 mg SUBCUT QWEEK 04/28/21 05/01/21 Unknown History subcutaneous pen injector (Trulicity) hydralazine 50 mg tablet 50 mg PO BID 04/28/21 05/01/21 Unknown History polyethylene glycol 3350 17 17 g PO BID 04/28/21 05/01/21 Unknown History gram/dose oral powder insulin degludec 200 unit/mL (3 45 unit SUBCUT DAILY ml 04/30/21 05/01/21 Unknown History mL) subcutaneous pen (Tresiba FlexTouch U-200 insulin) Physical Exam Vital Signs and Narrative: Vital Signs: Last Vital Signs Temp 97.7 F 04/27/21 21:40 Pulse 71 04/27/21 21:40 Resp 19 04/27/21 21:40 BP 120/68 04/27/21 21:40 Pulse Ox 97 04/27/21 21:40 Body Mass Index 33.0 Gen: Appears be in no acute distress HEENT: NCAT, Moist mucosa. Pulmonary: Vesicular breath sounds, fair air entry CVS: Normal S1-S2 Abdomen: BS+, Soft, Nontender Extremities: Warm well perfused Neuro: Alert and awake. Patient has baseline left-sided weakness; right sided strength 5/5 and sensations intact. Results Labs CBC and Chem 7: 04/28/21 06:14 04/28/21 06:14 Labs: Laboratory Results - last 24 hr 04/27/21 04/27/21 04/27/21 20:51 20:51 21:36 MCV 83.8 MCH 27.9 MCHC 33.3 RDW 12.7 Plt Count 206 MPV 10.9 Immature Gran % (Auto) 0.2 Neut % (Auto) 60.6 Lymph % (Auto) 27.2 [place] % (Auto) 8.3 Eos % (Auto) 3.3 Baso % (Auto) 0.4 Lymph # (Auto) 2.9 [place] # (Auto) 0.9 Eos # (Auto) 0.4 Baso # (Auto) 0.0 Abs Immat Gran (auto) 0.02 Absolute Neuts (auto) 6.4 Absolute Nucleated RBC 0.000 Nucleated RBC % (auto) 0.0 PT Whole Blood PT 12.2 INR Whole Blood INR 1.0 APTT Anion Gap Estim Creat Clear Calc Estimated GFR POC Glucose 244 H Random Glucose Calcium Total Creatine Kinase Troponin I High Sens COVID-19 ([facility]O) COVID-19 Clin Com 04/27/21 04/27/21 04/27/21 21:36 21:36 21:36 MCV MCH MCHC RDW Plt Count MPV Immature Gran % (Auto) Neut % (Auto) Lymph % (Auto) [place] % (Auto) Eos % (Auto) Baso % (Auto) Lymph # (Auto) [place] # (Auto) Eos # (Auto) Baso # (Auto) Abs Immat Gran (auto) Absolute Neuts (auto) Absolute Nucleated RBC Nucleated RBC % (auto) PT 11.3 Whole Blood PT INR 1.0 Whole Blood INR APTT 37.3 Anion Gap 15 Estim Creat Clear Calc 40.7 Estimated GFR 32 POC Glucose Random Glucose 268 H D Calcium 9.0 D Total Creatine Kinase 73 Troponin I High Sens 5.0 COVID-19 ([facility]O) COVID-19 Clin Com 04/27/21 21:42 MCV MCH MCHC RDW Plt Count MPV Immature Gran % (Auto) Neut % (Auto) Lymph % (Auto) [place] % (Auto) Eos % (Auto) Baso % (Auto) Lymph # (Auto) [place] # (Auto) Eos # (Auto) Baso # (Auto) Abs Immat Gran (auto) Absolute Neuts (auto) Absolute Nucleated RBC Nucleated RBC % (auto) PT Whole Blood PT INR Whole Blood INR APTT Anion Gap Estim Creat Clear Calc Estimated GFR POC Glucose Random Glucose Calcium Total Creatine Kinase Troponin I High Sens COVID-19 ([facility]O) Negative COVID-19 Clin Com See Note Imaging Radiologist's Impressions: Impressions Head CT 04/27/21 20:49 IMPRESSION: --No acute intracranial pathology. --Similar pattern of multifocal chronic ischemic/encephalomalacia changes throughout the cerebral hemispheres bilaterally, unchanged relative to 03/02/2020 comparison examination. If suspicion persists for acute infarct, MRI is recommended for further evaluation. This critical result was discussed with Dr. Corbin at 2105 hours on 04/27/2021. It was ascertained that the content and urgency of the report was understood at the time of direct communication. Chest X-Ray 04/27/21 20:50 IMPRESSION: Unremarkable examination. Head/Neck CTA 04/27/21 20:50 IMPRESSION: - No definite acute intracranial findings however assessment is limited by the degree of extensive chronic ischemic changes throughout the cerebral hemispheres bilaterally. If there is acute neurologic deficit, MRI would be more sensitive in assessing for any superimposed acute infarcts. - Chronic appearing partial occlusion of the distal right M1 MCA segment and several proximal right M2 MCA branches associated with collaterals reconstituting the more distal right middle cerebral artery branches. There is oligemia within the right MCA territory and an acute on chronic occlusion within the right MCA distribution would be difficult to exclude without any prior studies available for comparison. - There is a severe stenosis involving the distal left M1 MCA segment. - Artifact versus a filling defect within the distal right common carotid artery just proximal to the carotid bifurcation that could reflect adherent thrombus or plaque resulting in a possible high-grade stenosis that is not well assessed secondary to artifact. Lipid rich and calcific atherosclerotic plaque results in a less than 50% stenosis of the proximal right internal carotid artery. - Atherosclerotic calcification results in a severe stenosis of the right vertebral artery origin. - Cervical spondylosis including advanced spondylitic changes at C5-C6 where a disc osteophyte complex results in potential mass effect on the cervical cord that can be further assessed with a cervical spine MRI if there is cervical myelopathy clinically. Stroke protocol CTA result discussed with Dr. Corbin at 9:53 PM on 04/27/2021. Assessment and Plan (1) Cerebrovascular accident: Status: Acute 60-year-old male with a past medical history of hypertension, hyperlipidemia, diabetes, CKD, CVA with left hemiplegia, GERD, intermediate resident presented to the hospital with a chief complaint of right facial droop and slurred speech. Initially noted to be on a head stroke scale of 3 in the ER; but decided not a candidate for tPA after discussion with the Neurology on-call. Admitted for further management. CVA: Patient presented with right facial droop and slurred speech: Patient baseline speech is difficult to understand as per the patient's guardian. Right facial droop improved. Patient has baseline left-sided hemiplegia from prior strokes. Dysphagia screen Aspiration precautions Speech and swallow eval PT/OT Echocardiogram bubble study MRI brain (pt has no contraindications for MRI as mentioned pt's Guardian Caitlin) Neurology consult Fall precautions Neuro checks Patient is on aspirin statin. Hypertension/hyperlipidemia: Continue home medications Diabetes: Will keep the patient on insulin sliding scale All other chronic conditions, home medications will be continued DVT prophylaxis: SCD boots Code status: FULL Code-discussed with patient's Guardian Caitlin. Quality Stroke Does the patient have a stroke diagnosis?: No VTE Prior VTE?: No VTE Risk Level:: Medical - moderate - high VTE Device Contraindication: N/A - Device Ordered VTE Drug Contraindication: Treatment Not Indicated
[2021-04-28] VITALS (10 sets, daily range): BP systolic 120–146; BP diastolic 62–77; PULSE 58–81; RESP 18–20; TEMP 35.5–37.1; O2SAT 95–98
--- NOTE | 2021-04-28 | EEG_ITS ---
This is a 16-channel EEG with an EKG lead. The patient is reported drowsy during the tracing. Background EEG rhythm was about 8 hertz, 5 to 30 microvolt posteriorly and lower amplitude fast anteriorly. The patient transitioned into drowsiness with no obvious asymmetry or abnormality. Some lead and muscle artifacts are noted. No definite sharp wave spikes or paroxysmal tendency noted. Photic stimulation did not produce any significant driving. Hyperventilation was not performed. Cardiac lead did not reveal any obvious abnormality. IMPRESSION: No significant abnormality noted on this EEG other than mild slowing. MD SLAVA Hall/ZAID / [id number]
[2021-04-28 00:16] LABS: Troponin-I High Sensitivity 5.5 ng/L (<3.5-35.0)
[2021-04-28] MEDS: Dextrose 5 % and 0.45 % NaCl 1,000 ML 50 ML IVCONT (02:20)
[2021-04-28 06:40] LABS: MANUAL DIFF FLAG NO
[2021-04-28 06:47] LABS: Basophils Absolute Auto 0.1 X10*3/uL (0.0-0.2); Basophils Percent Auto 0.5 % (0-2); Eosinophils Absolute Auto 0.4 X10*3/uL (0.0-0.4); Eosinophils Percent Auto 4.2 % (0-4); Hematocrit 35.6 % (42-52); Hemoglobin 11.8 g/dl (14.0-18.0); Imm Gran Abs Auto 0.02 X10*3/uL (0.00-0.03); Imm Gran Pct Auto 0.2 % (0.0-0.4); Lymphocytes Absolute Auto 2.8 X10*3/uL (1.2-4.9); Lymphocytes Percent Auto 29.4 % (20-40); Mean Corpuscular HGB Conc 33.1 g/dl (31.0-36.0); Mean Corpuscular Hemoglobin 27.8 pg (27.0-33.0); Mean Platelet Volume 11.1 fL (9.4-12.4); Monocytes Absolute Auto 0.9 X10*3/uL (0.1-1.2); Monocytes Percent Auto 9.1 % (2-11); Neutrophils Absolute Auto 5.3 X10*3/uL (2.0-8.3); Neutrophils Percent Auto 56.6 % (45-73); Platelet Count 217 X10*3/uL (160-400); Red Blood Count 4.24 X10*6/uL (4.60-5.80); Red Cell Distribution Width 12.6 % (11.0-16.0); White Blood Count 9.3 X10*3/uL (4.8-10.8)
[2021-04-28 07:04] LABS: Cholesterol 118 mg/dL; HDL Cholesterol 30 mg/dL; LDL Cholesterol Calculated 72 mg/dl; Triglycerides 83 mg/dL
[2021-04-28 07:12] LABS: Anion Gap 13 (12-20); Blood Urea Nitrogen 38 mg/dL (9-16); Calcium 9.1 mg/dL (8.4-10.2); Carbon Dioxide 23 mmol/L (22-29); Chloride 109 mmol/L (96-108); Creatinine Clr Calc Pharmacy 49.4; Estimated Glomerular Filt Rate 41; Glucose Random 130 mg/dL (60-115); Potassium 4.6 mmol/L (3.3-5.1); Sodium 140 mmol/L (135-145)
--- NOTE | 2021-04-28 08:40 | PC.NURSE ---
Physical therapy at bedside
[2021-04-28 08:49] LABS: Glucose, Whole Blood 194 mg/dL (60-115)
--- NOTE | 2021-04-28 09:58 | MHC.CM.PN ---
CM met with Patient and his Service Net Worker at bedside. The goal for dc is for Patient to return to his Long-Term and resume Service Net PT and his Day Program; CM has initiated and will follow for dc planning. Cousin/Guardian is Caitlin @ [phone]. PCP /ELECTRICAL MANUFACTURING TECHNICIAN is Brit Smallwood.
[2021-04-28] MEDS: 0.9 % Sodium Chloride Flush 3 ML SYRINGE IVFLUSH ×2 (10:39→17:37)
[2021-04-28] MEDS: Atorvastatin Calcium 20 MG TABLET PO (10:39)
[2021-04-28] MEDS: Sucralfate 1 GM TABLET PO ×4 (10:40→22:23)
[2021-04-28] MEDS: Ascorbic Acid 500 MG TABLET PO ×2 (10:40→22:20)
[2021-04-28] MEDS: Sennosides 8.6 MG TABLET PO ×2 (10:41→22:22)
[2021-04-28] MEDS: UrsodioL 300 MG CAPSULE PO ×2 (10:41→22:22)
[2021-04-28] MEDS: risperiDONE 0.5 MG TABLET PO ×2 (10:41→22:21)
[2021-04-28] MEDS: Aspirin Enteric Coated 81 MG TABLET.DR PO (10:41)
[2021-04-28] MEDS: Ergocalciferol (Vitamin D2) 1,250 MCG CAPSULE 1250 MCG PO (10:41)
[2021-04-28] MEDS: NIFEdipine ER 30 MG TAB.ER.24 PO (10:42)
[2021-04-28] MEDS: hydrALAZINE HCl 50 MG TABLET PO ×2 (10:43→22:20)
[2021-04-28] MEDS: Losartan Potassium 50 MG TABLET PO (10:43)
--- NOTE | 2021-04-28 11:02 | MHC.SL.SWA ---
Speech Pathologist Impression: Within Functional Limits Risk of Aspiration Due to: Dysphasia Diet Status: Liquid Consistency and Strategies for Safe Swallow: Liquid Intake Recommendation: Thin Liquid Intake Strategies: Unrestricted Solid Food Consistency: Dietary Recommendations: Chopped/Advanced (NDD3) Additional Modifications to Solid Foods: Oral Medication Intake: Whole with Puree Compensatory Strategies and Precautions to be Taken for Safe Swallow: Sitting Upright (90 deg) Liquids from Cup Liquids from Straw Small Bites and Sips Alternate Liquids/Solids Oral Check Supervision While Eating and Drinking for Safe Swallow: Total Assistance Foods to Avoid: Swallowing Recommended Treatments: Recommendation for Speech: Inpatient Speech Therapy Comment: CLIENT EXPERIENCE MANAGER will follow up 1x to ensure tolerance. Frequency/Duration: Date Range for Service Req: Timeline to reassess: Wharf Builder Clinican/Clinical Fellow: No Supervisory Statement: I have reviewed and agree with the student/clinical fellow's documentation: N/A Speech Language Pathologist: Teri De La Rosa M.A. CCC-CLIENT EXPERIENCE MANAGER
[2021-04-28 11:16] LABS: Glucose, Whole Blood 203 mg/dL (60-115)
[2021-04-28] MEDS: Insulin Lispro 100 UNIT/ML 3 ML VIAL SUBCUT ×3 (13:06→22:17)
--- NOTE | 2021-04-28 14:16 | PM.NEUROCN ---
History of Present Illness Data of Consult Service Date: 04/28/21 Primary Care Provider: Isabel Smallwood NP 60 years old man admitted hospital with new onset of right facial droop and slurred speech. Initially he was thought to be a patient with stroke but because of his previous history and minimal symptoms he was not considered a candidate for intravenous tPA. There was no obvious convulsion and he was admitted for further evaluation. Review of Systems Review of Systems: No recent cold or flu-like illness or obvious convulsion. FORMERLY [facility] Past Medical History Medical History Anemia Aphagia Bronchitis Chronic kidney disease, stage 3 CKD (chronic kidney disease) Constipation Diabetes Diabetes type 2, uncontrolled Epigastric pain Essential hypertension GERD (gastroesophageal reflux disease) Hearing loss Hemiplegia HTN (hypertension) Hyperlipidemia Hyperlipidemia Hypertensive chronic kidney disease with stage 1 through stage 4 chronic kidney disease, or unspecified chronic kidney disease Hypoglycemia unawareness associated with type 2 diabetes mellitus Postoperative bleeding from incision Preglaucoma Skin cancer Skin lesion Stroke Type 2 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 Unsteady gait Vascular device, implant, or graft complication Vitamin D deficiency Vitamin D deficiency Family History Family History Father Myocardial infarction Mother Throat cancer Diabetes Family/Other FH: mental illness Brother In good health Sister In good health Sister In good health Daughter In good health Surgical History Surgical History History of exploratory laparotomy History of surgical removal of skin lesion Social History Social History 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 Household Members Other:: jail Housing: Prison Do you presently have visiting nurse or other home services: Yes Alcohol intake: never Patient Tobacco Use Status: Former Tobacco user Tobacco use type: Cigarette Cigarette Packs Per Day: 2 Cigarettes Per Day: 40.0 Years Smoked: 16 Smoked in Last 30 Days: No e-Cigarette/Vaping Use: Former Use Frequency of e-Cigarette/Vaping Use: daily Patient Interested in Nicotine Replacement: No Patient Given Instructions on How to Stop Smoking: No Second Hand Smoke Exposure: No Use of substances other than those prescribed or required for medical reasons: No Have you been hit, kicked, punched, or otherwise hurt by someone within the past year? If so, by whom?: No Do you feel safe in your current relationship?: No Is there a partner from a previous relationship who is making you feel unsafe now?: No Are you made to feel afraid or neglected: No Advance Directives: Yes Advance Directives Information Provided: No Advance Directives on File: Yes Advance Directives Date on File: 12/02/20 Do you have thoughts of harming others: None Do you have a plan to hurt others: No Plan Eating poorly because of decreased appetite: No Nutrition Risks: No Nutritional Risk service: No Current occupational status: disabled Meds Allergies Allergy/AdvReac Type Severity Reaction Status Date / Time amlodipine [From [facility]] Allergy Severe due to Verified 04/03/21 11:04 poor renal function ibuprofen Allergy Severe 2/2 renal Verified 04/03/21 11:04 function Active Medications: Current Medications Generic Name Dose Route Start Last Admin Trade Name Freq PRN Reason Stop Dose Admin Acetaminophen 650 mg 04/27/21 22:24 Acetaminophen 325 Mg Tablet PO Q6H PRN Pain, Mild (Pain Scale 1-3) Ascorbic Acid 500 mg 04/28/21 09:00 04/28/21 10:40 Ascorbic Acid 500 Mg Tablet PO 500 mg BID CHELSIE Administration Aspirin 81 mg 04/28/21 09:00 04/28/21 10:41 Aspirin Enteric Coated 81 Mg Tablet. PO 81 mg DAILY CHELSIE Administration Atorvastatin Calcium 20 mg 04/28/21 09:00 04/28/21 10:39 Atorvastatin Calcium 20 Mg Tablet PO 20 mg DAILY CHELSIE Administration Ergocalciferol 1,250 mcg 04/28/21 09:00 04/28/21 10:41 Ergocalciferol (Vitamin D2) 1,250 Mcg Capsule PO 1,250 mcg Q28D CHELSIE Administration Glucose 15 gm 04/28/21 01:53 Glucose Gel 15 Gm Gel..Gram. PO Q15M PRN hypoglycemia Guaifenesin 10 ml 04/28/21 01:53 Guaifenesin 100 Mg/5 Ml Liquid PO Q4H PRN Cough Hydralazine HCl 50 mg 04/28/21 09:00 04/28/21 10:43 Hydralazine Hcl 50 Mg Tablet PO 50 mg BID CHELSIE Administration Protocol Dextrose/Sodium Chloride 1,000 mls @ 50 mls/hr 04/27/21 22:30 04/28/21 02:20 D51/2ns IVCONT 50 mls/hr .Q20H CHELSIE Administration Insulin Human Lispro 0 unit 04/28/21 07:30 04/28/21 13:06 Insulin Lispro 100 Unit/Ml 3 Ml Vial SUBCUT 2 unit QIDACHS CHELSIE Administration Protocol Lactulose 20 gm 04/28/21 01:53 Lactulose 20 Gm/30 Ml Solution PO DAILY PRN constipation Lorazepam 0.5 mg 04/28/21 01:53 Lorazepam 0.5 Mg Tablet PO DAILY PRN Anxiety Losartan Potassium 50 mg 04/28/21 09:00 04/28/21 10:43 Losartan Potassium 50 Mg Tablet PO 50 mg DAILY CHELSIE Administration Protocol Magnesium Hydroxide 30 ml 04/27/21 22:24 Milk Of Magnesia 30 Ml Oral.Susp PO DAILY PRN Constipation Meclizine HCl 25 mg 04/28/21 01:53 Meclizine Hcl 25 Mg Tablet PO Q6H PRN Dizziness Melatonin 6 mg 04/27/21 22:24 Melatonin 3 Mg Tablet PO BEDTIME PRN Insomnia Metoprolol Succinate 25 mg 04/28/21 21:00 Metoprolol Succinate Er 25 Mg Tab.Er.24h PO BEDTIME [facility] Protocol Nifedipine 30 mg 04/28/21 09:00 04/28/21 10:42 Nifedipine Er 30 Mg Tab.Er.24 PO 30 mg DAILY CHELSIE Administration Protocol Polyethylene Glycol 17 gm 04/28/21 09:00 04/28/21 10:39 Polyethylene Glycol 3350 17 Gm Powd.Pack PO 17 gm BID CHELSIE Administration Risperidone 0.5 mg 04/28/21 09:00 04/28/21 10:41 Risperidone 0.5 Mg Tablet PO 0.5 mg BID CHELSIE Administration Senna 8.6 mg 04/28/21 09:00 04/28/21 10:41 Sennosides 8.6 Mg Tablet PO 8.6 mg BID CHELSIE Administration Sodium Chloride 3 ml 04/28/21 00:00 04/28/21 10:39 0.9 % Sodium Chloride Flush 3 Ml Syringe IVFLUSH 3 ml QSHIFT CHELSIE Administration Sucralfate 1 gm 04/28/21 09:00 04/28/21 13:06 Sucralfate 1 Gm Tablet PO 1 gm QID CHELSIE Administration Tamsulosin HCl 0.4 mg 04/28/21 21:00 Tamsulosin Hcl 0.4 Mg Capsule PO BEDTIME CHELSIE Trazodone HCl 25 mg 04/28/21 21:00 Trazodone Hcl 25 Mg Halftab PO BEDTIME [facility] Trolamine Salicylate/Aloe Vera 1 appl 04/28/21 01:53 Trolamine Salicylate 10%/Aloe Cream 35.4 Gm TOPICAL TID PRN Pain Ursodiol 300 mg 04/28/21 09:00 04/28/21 10:41 Ursodiol 300 Mg Capsule PO 300 mg BID [facility] Administration Home Medications Medication Instructions Recorded Confirmed Last Taken Type hydrocortisone valerate 0.2 % 1 applic TOPICAL BID PRN 07/24/20 04/28/21 Unknown History topical cream lorazepam 0.5 mg tablet 0.5 mg PO DAILY PRN 07/24/20 04/27/21 Unknown History risperidone 0.5 mg tablet 0.5 mg PO BID 07/24/20 04/28/21 Unknown History trazodone 50 mg tablet 25 mg PO BEDTIME 07/24/20 04/28/21 Unknown History Aspercreme with Aloe 1 appl TOPICAL TID PRN 12/25/20 04/27/21 Unknown History acetaminophen [Tylenol] 650 mg PO Q6H PRN 12/25/20 04/27/21 Unknown History guaifenesin 300 mg PO Q4H PRN 12/25/20 04/28/21 Unknown History meclizine 25 mg PO Q6H PRN MDD 3 12/25/20 04/28/21 Unknown History Mi-Acid 7.5 ml PO QID PRN 04/28/21 04/28/21 Unknown History alum-mag hydroxide-simeth 7.5 ml PO BEDTIME PRN 04/28/21 04/28/21 Unknown History dextrose [Glutose-45] 15 g PO Q15M MDD 3 04/28/21 04/28/21 Unknown History dulaglutide [Trulicity] 1.5 mg SUBCUT QWEEK 04/28/21 04/28/21 Unknown History hydralazine 50 mg PO BID 04/28/21 04/28/21 Unknown History insulin degludec [Tresiba 50 unit SUBCUT DAILY 04/28/21 04/28/21 Unknown History FlexTouch U-200] polyethylene glycol 3350 17 g PO BID 04/28/21 04/28/21 Unknown History Physical Exam Vital Signs: Vital Signs: Last Vital Signs Temp 96 F L 04/28/21 10:53 Pulse 58 04/28/21 10:53 Resp 20 04/28/21 10:53 BP 146/72 H 04/28/21 10:53 Pulse Ox 97 04/28/21 10:53 Body Mass Index 33.0 he is drowsy but able to open eyes and answer simple questions. He told me his name and followed commands. Pupils were round reactive to light. Visual taylor are full. There was mild right-sided facial weakness. There was mild left hemiparesis. Plantars were extensor. Results Labs CBC & Chem 7: 04/28/21 06:14 04/28/21 06:14 Labs: Short CBC 04/27/21 04/28/21 Range/Units 21:36 06:14 WBC 10.5 9.3 (4.8-10.8) X10*3/uL Hgb 11.4 L 11.8 L (14.0-18.0) g/dl Hct 34.2 L 35.6 L (42-52) % Plt Count 206 217 (160-400) X10*3/uL BMP 04/27/21 04/28/21 21:36 06:14 Sodium 135 140 Potassium 4.6 4.6 Chloride 102 109 H Carbon Dioxide 23 23 BUN 47 H 38 H Creatinine 2.11 H 1.74 H Calcium 9.0 D 9.1 Cardiac Enzymes 04/27/21 Range/Units 21:36 Total Creatine Kinase 73 (38-174) U/L His noncontrast MRI of brain did not reveal any area of restricted diffusion. Extensive chronic microvascular disease and significant chronic infarctions were noted especially on left side. Assessment and Plan (1) Cerebrovascular accident: Status: Acute (2) Encephalopathy: Status: Acute 60 years old man with extensive microvascular disease of brain and multiple infarcts especially in left hemisphere resulting in significant dementia and mild left hemiparesis. At this time there was no indication of another stroke or acute stroke. He might have a seizure. I would recommend obtaining an EEG if no reason for encephalopathy was found. Procedures Date of Service Date of Service: 04/28/21
[2021-04-28 16:06] LABS: Glucose, Whole Blood 340 mg/dL (60-115)
--- NOTE | 2021-04-28 17:02 | P.PNIM_ITS ---
Subjective Subjective Date of Service: 04/28/21 Interval History: history in [place] from pt R facial droop improved chronic L sided weakness Physical Exam Vital Signs: Vital Signs: Last Vital Signs Temp 96.8 F 04/28/21 15:09 Pulse 81 04/28/21 15:09 Resp 20 04/28/21 15:09 BP 136/74 04/28/21 15:09 Pulse Ox 95 04/28/21 15:09 Body Mass Index 33.0 Gen: in no acute distress HEENT: sclera anicteric, moist mucus membranes Neck: supple Lungs: clear to auscultation bilaterally Heart: regular rate and rhythm, no murmurs Abd: soft, non-tender, non-distended Ext: no edema Skin: warm/well-perfused Neuro: alert and oriented x3, very slight R facial droop, L hemiparesis Psych: appropriate affect Objective Data Current Medications Generic Name Dose Route Start Last Admin Trade Name Freq PRN Reason Stop Dose Admin Acetaminophen 650 mg 04/27/21 22:24 Acetaminophen 325 Mg Tablet PO Q6H PRN Pain, Mild (Pain Scale 1-3) Ascorbic Acid 500 mg 04/28/21 09:00 04/28/21 10:40 Ascorbic Acid 500 Mg Tablet PO 500 mg BID CHELSIE Administration Aspirin 81 mg 04/28/21 09:00 04/28/21 10:41 Aspirin Enteric Coated 81 Mg Tablet.Dr PO 81 mg DAILY CHELSIE Administration Atorvastatin Calcium 20 mg 04/28/21 09:00 04/28/21 10:39 Atorvastatin Calcium 20 Mg Tablet PO 20 mg DAILY CHELSIE Administration Ergocalciferol 1,250 mcg 04/28/21 09:00 04/28/21 10:41 Ergocalciferol (Vitamin D2) 1,250 Mcg Capsule PO 1,250 mcg Q28D CHELSIE Administration Glucose 15 gm 04/28/21 01:53 Glucose Gel 15 Gm Gel..Gram. PO Q15M PRN hypoglycemia Guaifenesin 10 ml 04/28/21 01:53 Guaifenesin 100 Mg/5 Ml Liquid PO Q4H PRN Cough Hydralazine HCl 50 mg 04/28/21 09:00 04/28/21 10:43 Hydralazine Hcl 50 Mg Tablet PO 50 mg BID CHELSIE Administration Protocol Dextrose/Sodium Chloride 1,000 mls @ 50 mls/hr 04/27/21 22:30 04/28/21 02:20 D51/2ns IVCONT 50 mls/hr .Q20H CHELSIE Administration Insulin Human Lispro 0 unit 04/28/21 07:30 04/28/21 13:06 Insulin Lispro 100 Unit/Ml 3 Ml Vial SUBCUT 2 unit QIDACHS CHELSIE Administration Protocol Lactulose 20 gm 04/28/21 01:53 Lactulose 20 Gm/30 Ml Solution PO DAILY PRN constipation Lorazepam 0.5 mg 04/28/21 01:53 Lorazepam 0.5 Mg Tablet PO DAILY PRN Anxiety Losartan Potassium 50 mg 04/28/21 09:00 04/28/21 10:43 Losartan Potassium 50 Mg Tablet PO 50 mg DAILY [facility] Administration Protocol Magnesium Hydroxide 30 ml 04/27/21 22:24 Milk Of Magnesia 30 Ml Oral.Susp PO DAILY PRN Constipation Meclizine HCl 25 mg 04/28/21 01:53 Meclizine Hcl 25 Mg Tablet PO Q6H PRN Dizziness Melatonin 6 mg 04/27/21 22:24 Melatonin 3 Mg Tablet PO BEDTIME PRN Insomnia Metoprolol Succinate 25 mg 04/28/21 21:00 Metoprolol Succinate Er 25 Mg Tab.Er.24h PO BEDTIME [facility] Protocol Nifedipine 30 mg 04/28/21 09:00 04/28/21 10:42 Nifedipine Er 30 Mg Tab.Er.24 PO 30 mg DAILY CHELSIE Administration Protocol Polyethylene Glycol 17 gm 04/28/21 09:00 04/28/21 10:39 Polyethylene Glycol 3350 17 Gm Powd.Pack PO 17 gm BID CHELSIE Administration Risperidone 0.5 mg 04/28/21 09:00 04/28/21 10:41 Risperidone 0.5 Mg Tablet PO 0.5 mg BID CHELSIE Administration Senna 8.6 mg 04/28/21 09:00 04/28/21 10:41 Sennosides 8.6 Mg Tablet PO 8.6 mg BID CHELSIE Administration Sodium Chloride 3 ml 04/28/21 00:00 04/28/21 10:39 0.9 % Sodium Chloride Flush 3 Ml Syringe IVFLUSH 3 ml QSHIFT CHELSIE Administration Sucralfate 1 gm 04/28/21 09:00 04/28/21 13:06 Sucralfate 1 Gm Tablet PO 1 gm QID CHELSIE Administration Tamsulosin HCl 0.4 mg 04/28/21 21:00 Tamsulosin Hcl 0.4 Mg Capsule PO BEDTIME [facility] Trazodone HCl 25 mg 04/28/21 21:00 Trazodone Hcl 25 Mg Halftab PO BEDTIME [facility] Trolamine Salicylate/Aloe Vera 1 appl 04/28/21 01:53 Trolamine Salicylate 10%/Aloe Cream 35.4 Gm TOPICAL TID PRN Pain Ursodiol 300 mg 04/28/21 09:00 04/28/21 10:41 Ursodiol 300 Mg Capsule PO 300 mg BID CHELSIE Administration Labs CBC & Chem 7: 04/28/21 06:14 04/28/21 06:14 Labs: Laboratory Results - last 24 hr 04/27/21 04/27/21 04/27/21 20:51 20:51 21:36 WBC 10.5 RBC 4.08 L Hgb 11.4 L Hct 34.2 L MCV 83.8 MCH 27.9 MCHC 33.3 RDW 12.7 Plt Count 206 MPV 10.9 Immature Gran % (Auto) 0.2 Neut % (Auto) 60.6 Lymph % (Auto) 27.2 Garden % (Auto) 8.3 Eos % (Auto) 3.3 Baso % (Auto) 0.4 Lymph # (Auto) 2.9 Garden # (Auto) 0.9 Eos # (Auto) 0.4 Baso # (Auto) 0.0 Abs Immat Gran (auto) 0.02 Absolute Neuts (auto) 6.4 Absolute Nucleated RBC 0.000 Nucleated RBC % (auto) 0.0 PT Whole Blood PT 12.2 INR Whole Blood INR 1.0 APTT Sodium Potassium Chloride Carbon Dioxide Anion Gap BUN Creatinine Estim Creat Clear Calc Estimated GFR POC Glucose 244 H Random Glucose Calcium Total Creatine Kinase Troponin I High Sens Triglycerides Cholesterol LDL Cholesterol, Calc HDL Cholesterol COVID-19 ([facility]) COVID-19 Clin Com 04/27/21 04/27/21 04/27/21 21:36 21:36 21:36 WBC RBC Hgb Hct MCV MCH MCHC RDW Plt Count MPV Immature Gran % (Auto) Neut % (Auto) Lymph % (Auto) Garden % (Auto) Eos % (Auto) Baso % (Auto) Lymph # (Auto) Garden # (Auto) Eos # (Auto) Baso # (Auto) Abs Immat Gran (auto) Absolute Neuts (auto) Absolute Nucleated RBC Nucleated RBC % (auto) PT 11.3 Whole Blood PT INR 1.0 Whole Blood INR APTT 37.3 Sodium 135 Potassium 4.6 Chloride 102 Carbon Dioxide 23 Anion Gap 15 BUN 47 H Creatinine 2.11 H Estim Creat Clear Calc 40.7 Estimated GFR 32 POC Glucose Random Glucose 268 H D Calcium 9.0 D Total Creatine Kinase 73 Troponin I High Sens 5.0 Triglycerides Cholesterol LDL Cholesterol, Calc HDL Cholesterol COVID-19 ([facility]) COVID-19 Clin Com 04/27/21 04/27/21 04/28/21 21:42 23:37 06:14 WBC 9.3 RBC 4.24 L Hgb 11.8 L Hct 35.6 L MCV 84.0 MCH 27.8 MCHC 33.1 RDW 12.6 Plt Count 217 MPV 11.1 Immature Gran % (Auto) 0.2 Neut % (Auto) 56.6 Lymph % (Auto) 29.4 Garden % (Auto) 9.1 Eos % (Auto) 4.2 H Baso % (Auto) 0.5 Lymph # (Auto) 2.8 Garden # (Auto) 0.9 Eos # (Auto) 0.4 Baso # (Auto) 0.1 Abs Immat Gran (auto) 0.02 Absolute Neuts (auto) 5.3 Absolute Nucleated RBC 0.000 Nucleated RBC % (auto) 0.0 PT Whole Blood PT INR Whole Blood INR APTT Sodium Potassium Chloride Carbon Dioxide Anion Gap BUN Creatinine Estim Creat Clear Calc Estimated GFR POC Glucose Random Glucose Calcium Total Creatine Kinase Troponin I High Sens 5.5 Triglycerides Cholesterol LDL Cholesterol, Calc HDL Cholesterol COVID-19 ([facility]) Negative COVID-19 Clin Com See Note 04/28/21 04/28/21 04/28/21 06:14 06:14 08:45 WBC RBC Hgb Hct MCV MCH MCHC RDW Plt Count MPV Immature Gran % (Auto) Neut % (Auto) Lymph % (Auto) Garden % (Auto) Eos % (Auto) Baso % (Auto) Lymph # (Auto) Garden # (Auto) Eos # (Auto) Baso # (Auto) Abs Immat Gran (auto) Absolute Neuts (auto) Absolute Nucleated RBC Nucleated RBC % (auto) PT Whole Blood PT INR Whole Blood INR APTT Sodium 140 Potassium 4.6 Chloride 109 H Carbon Dioxide 23 Anion Gap 13 BUN 38 H Creatinine 1.74 H Estim Creat Clear Calc 49.4 Estimated GFR 41 POC Glucose 194 H Random Glucose 130 H D Calcium 9.1 Total Creatine Kinase Troponin I High Sens Triglycerides 83 Cholesterol 118 LDL Cholesterol, Calc 72 HDL Cholesterol 30 COVID-19 ([facility]) COVID-19 Clin Com 04/28/21 04/28/21 10:53 15:55 WBC RBC Hgb Hct MCV MCH MCHC RDW Plt Count MPV Immature Gran % (Auto) Neut % (Auto) Lymph % (Auto) Garden % (Auto) Eos % (Auto) Baso % (Auto) Lymph # (Auto) Garden # (Auto) Eos # (Auto) Baso # (Auto) Abs Immat Gran (auto) Absolute Neuts (auto) Absolute Nucleated RBC Nucleated RBC % (auto) PT Whole Blood PT INR Whole Blood INR APTT Sodium Potassium Chloride Carbon Dioxide Anion Gap BUN Creatinine Estim Creat Clear Calc Estimated GFR POC Glucose 203 H 340 H Random Glucose Calcium Total Creatine Kinase Troponin I High Sens Triglycerides Cholesterol LDL Cholesterol, Calc HDL Cholesterol COVID-19 ([facility]) COVID-19 Clin Com Imp[address] Head CT 04/27/21 20:49 IMPRESSION: --No acute intracranial pathology. --Similar pattern of multifocal chronic ischemic/encephalomalacia changes throughout the cerebral hemispheres bilaterally, unchanged relative to 03/02/2020 comparison examination. If suspicion persists for acute infarct, MRI is recommended for further evaluation. This critical result was discussed with Dr. Corbin at 2105 hours on 04/27/2021. It was ascertained that the content and urgency of the report was understood at the time of direct communication. Chest X-Ray 04/27/21 20:50 IMPRESSION: Unremarkable examination. Head/Neck CTA 04/27/21 20:50 IMPRESSION: - No definite acute intracranial findings however assessment is limited by the degree of extensive chronic ischemic changes throughout the cerebral hemispheres bilaterally. If there is acute neurologic deficit, MRI would be more sensitive in assessing for any superimposed acute infarcts. - Chronic appearing partial occlusion of the distal right M1 MCA segment and several proximal right M2 MCA branches associated with collaterals reconstituting the more distal right middle cerebral artery branches. There is oligemia within the right MCA territory and an acute on chronic occlusion within the right MCA distribution would be difficult to exclude without any prior studies available for comparison. - There is a severe stenosis involving the distal left M1 MCA segment. - Artifact versus a filling defect within the distal right common carotid artery just proximal to the carotid bifurcation that could reflect adherent thrombus or plaque resulting in a possible high-grade stenosis that is not well assessed secondary to artifact. Lipid rich and calcific atherosclerotic plaque results in a less than 50% stenosis of the proximal right internal carotid artery. - Atherosclerotic calcification results in a severe stenosis of the right vertebral artery origin. - Cervical spondylosis including advanced spondylitic changes at C5-C6 where a disc osteophyte complex results in potential mass effect on the cervical cord that can be further assessed with a cervical spine MRI if there is cervical myelopathy clinically. Stroke protocol CTA result discussed with Dr. Corbin at 9:53 PM on 04/27/2021. Brain MRI 04/28/21 12:32 IMPRESSION: - Possible punctate acute infarct within the left marquez on image 11 of series 3. No additional acute infarcts. - Chronic infarcts within the left and right cerebral hemispheres are redemonstrated. There is global cerebral volume loss and there is background chronic microangiopathy. Assessment and Plan (1) Encephalopathy: Status: Acute Assessment and Plan: hospital d#2 60yo M resident of detention with prior CVA with L hemiplegia, HTN, HLD, DM2, CKD3, GERD presented with R facial droop + slurred speech, encephalopathy ?L pontine CVA # possible L pontine CVA - PT evaluation. Per OT at baseline. Per PLASTIC TECHNICIAN OK for NDD3 solids/thin liquids. Neurology consulted. TTE pending. Continue statin [intensify dose] + ASA # encephalopathy - EEG per Neuro recommmendation # HTN - continue hydralazine, losartan, metoprolol, nifedipine # HLD - continue statin # DM2 - correction-dose lispro A1c 7.7 (04/03/21) # BPH - continue tamsulosin # mood disorder - continue risperidone + trazodone + lorazepam # VTE ppx - UFH Quality Stroke Does the patient have a stroke diagnosis?: Yes Reason for No Anti-thrombotic by Day Two: N/A - Med Ordered VTE Prior VTE?: No VTE Risk Level:: Medical - moderate - high VTE Device Contraindication: N/A - Device Ordered VTE Drug Contraindication: Treatment Not Indicated
[2021-04-28] MEDS: Heparin Sodium,Porcine 5,000 UNIT/ML VIAL 5000 UNIT SUBCUT (17:36)
[2021-04-28] MEDS: Acetaminophen 325 MG TABLET 650 MG PO (17:46)
[2021-04-28 20:39] LABS: Glucose, Whole Blood 191 mg/dL (60-115)
[2021-04-28] MEDS: traZODone HCL 25 MG HALFTAB PO (22:20)
[2021-04-28] MEDS: Tamsulosin HCL 0.4 MG CAPSULE PO (22:21)
[2021-04-28] MEDS: Metoprolol Succinate ER 25 MG TAB.ER.24H PO (22:24)
[2021-04-28] MEDS: oxyCODONE HCl Immed Release 5 MG TABLET PO (22:31)
[2021-04-29] MEDS: Heparin Sodium,Porcine 5,000 UNIT/ML VIAL 5000 UNIT SUBCUT ×2 (01:34→09:46)
[2021-04-29] MEDS: 0.9 % Sodium Chloride Flush 3 ML SYRINGE IVFLUSH ×3 (01:35→15:20)
[2021-04-29 03:36] VITALS: BP 130/73; PULSE 54; RESP 20; TEMP 36.9; O2SAT 94
[2021-04-29 07:28] LABS: Glucose, Whole Blood 136 mg/dL (60-115)
--- NOTE | 2021-04-29 07:30 | CA_ITS ---
Transthoracic Echocardiogram Patient (Last, First, Middle): Simeon Balbuena, Gender: Male Date of : 1960 Age: 60 Procedure Date: 04/29/2021 Procedure Type: Transthoracic [place] [facility] [place]: 167.64 cm Weight: 92.99 kg BSA: 2.02 m2 Heart Rate: bpm BP: 120 / 68 mmHg Allergist: Oniel MD: Lele Savage MD Symptoms: cva bubble study Conclusions: - The left ventricular systolic function is normal. The visually estimated ejection fraction is between 60-65%. - There is no evidence of interatrial shunt by agitated saline. - No obvious valvular pathology seen on this study. Findings Left Ventricle Normal left ventricular cavity size. There is normal left ventricular wall thickness. The left ventricular systolic function is normal. The visually estimated ejection fraction is between 60-65%. There is no evidence of regional wall motion abnormalities. Diastolic function is normal for age. Right Ventricle Normal right ventricular cavity size and systolic function. Atria Both atria are normal in size. There is no evidence of interatrial shunt by agitated saline. Aortic Valve There is a normal trileaflet aortic valve. There is no aortic valve stenosis. There is no aortic valve regurgitation. Mitral Valve The mitral valve appears normal. There is trace mitral valve regurgitation. There is no mitral valve stenosis. Pulmonic Valve The pulmonic valve was not well visualized. Tricuspid Valve There is trace tricuspid valve regurgitation. The pulmonary artery systolic pressure is normal. Great Vessels The asc aorta is normal in size. Venous The inferior vena cava is normal in size and collapses greater than 50% with inspiration. Pericardium/Pleural There is no evidence of pericardial effusion. Prior Study Comparison No significant change compared to prior study dated: 09/03/2020. Recommendations, Care & Conclusions No obvious valvular pathology seen on this study. Measurements 2D Linear Measurements RVIDd: 2.55 RVIDd Index: 1.26 IVSd: 0.85 0.6-0.9/0.6-1.0 cm LVIDd: 5.22 3.9-5.3/4.2-5.9 cm LVIDd Index: 2.58 2.4-3.2/2.2-3.1 cm/m2 LVIDs: 2.92 2.0-3.6 cm LVPWd: 0.94 0.7-1.1 cm Ao Root: 2.90 2.1-3.5 cm LA Diam: 3.20 2.7-3.8/3.0-4.0 cm LAIDs Index: 1.58 1.5-2.3 cm/m2 LV Mass: 210.48 67-162/88-224 g LV Mass Index: 104.20 43-95/49-115 g/m2 LVOT Diam: 2.10 3.0+(-)1.3 cm 2D Systolic Function EF 4C: 64.00 >55% EF 2C: 57.20 >55% EF BiP: 62.10 >55% Mitral Valve MV Pk E: 0.64 MV PK A: 0.61 MV Decel Time: 306.00 E/A: 1.00 E'Lateral: 13.20 E'Medial: 7.83 E/E' Med: 8.10 E/E' Lat: 4.80 Aortic Valve AoV Pk Ritesh: 1.62 AoV Mn Ritesh: 0.99 AoV VTI: 0.35 AoV Pk Grad: 10.00 Aov Mn Grad: 5.00 PERLA Cont.VTI: 2.05 LVOT LVOT Pk Ritesh: 0.97 LVOT Mn Ritesh: 0.69 LVOT VTI: 0.21 LVOT Pk Grad: 4.00 LVOT Mn Grad: 2.00 LVOT Diam: 2.10 LVOT Area: 3.46 Diastolic Function MV Pk E: 0.64 MV Pk A: 0.61 E/A: 1.00 E'Medial: 7.83 E/E' Med: 8.10 E' Laterial: 13.20 E/E' Lat: 4.80 Right Ventricle TAPSE (mm): 2.20 Tricuspid Valve TR Pk Ritesh: 2.39 TR Pk Grad: 23.00 RA Press: 3.00 RVSP: 26.00 Great Vessels Aorta Ao Root-2D: 2.90 2.0-3.7 cm Ao Asc: 2.70 2.1-3.4 cm Updated in Other Vendor System with Status of Final Gary Rodriguez MD electronically signed on 04/29/2021 11:58:18 AM with status of Final
[2021-04-29 08:00] VITALS: BP 122/59; PULSE 58; RESP 20; TEMP 36.5; O2SAT 97
[2021-04-29 09:33] VITALS: BP 122/59; PULSE 58; O2SAT 97
[2021-04-29] MEDS: Sennosides 8.6 MG TABLET PO (09:42)
[2021-04-29] MEDS: UrsodioL 300 MG CAPSULE PO (09:42)
[2021-04-29 09:44] VITALS: BP 122/59; PULSE 58
[2021-04-29] MEDS: NIFEdipine ER 30 MG TAB.ER.24 PO (09:44)
[2021-04-29] MEDS: Aspirin Enteric Coated 81 MG TABLET.DR PO (09:44)
[2021-04-29] MEDS: Sucralfate 1 GM TABLET PO ×2 (09:44→14:44)
[2021-04-29] MEDS: hydrALAZINE HCl 50 MG TABLET PO (09:44)
[2021-04-29 09:45] VITALS: BP 122/59; PULSE 58
[2021-04-29] MEDS: risperiDONE 0.5 MG TABLET PO (09:45)
[2021-04-29] MEDS: Losartan Potassium 50 MG TABLET PO (09:45)
[2021-04-29] MEDS: Ascorbic Acid 500 MG TABLET PO (09:45)
--- NOTE | 2021-04-29 10:39 | MHC.SLORD ---
Speech Language Pathology Order Status: FOOT CASTER attempted to see pt for dysphagia follow up. Pt was off the floor. Continue to recommend CHOPPED/ADVANCED (NDD3) solids and THIN liquids with PILLS WHOLE in PUREE or LIQUID depending on pt's tolerance/preference. FOOT CASTER will follow up 1x.
[2021-04-29 12:45] LABS: Glucose, Whole Blood 191 mg/dL (60-115)
[2021-04-29] MEDS: Insulin Lispro 100 UNIT/ML 3 ML VIAL SUBCUT (12:45)
--- NOTE | 2021-04-29 14:16 | MHC.CM.PN ---
Per MD, Patient will be medically cleared for dc to return to the [facility] today, pending EEG results. Per MD request, ELISA has arranged for transportation- Patient will return to the [facility] today at 4 PM, via [facility]. ELISA spoke with [facility] Nurse/Yanely @ [phone], who is aware of the dc plan.Per Yanely's request, ELISA has asked MD to call her regarding her request for a clinical update.
--- NOTE | 2021-04-29 15:18 | P.DS_ITS ---
DS: Providers Provider Date of Service: 04/29/21 Date of admission: 04/27/21 22:24 Primary care physician: Brit Smallwood NP Consults: 04/27/21 22:25 Consult to Neurology Routine Consulting Provider: Maria Del Carmen Phelan Reason for consultation: cva DS: Diagnosis Discharge Diagnosis (1) Encephalopathy: Status: Acute (2) Ischemic stroke: Status: Acute DS: Medications Discharge Medications Home Medications: Home Medications Medication Instructions Recorded Confirmed hydrocortisone valerate 0.2 % 1 applic TOPICAL BID PRN 07/24/20 04/28/21 topical cream lorazepam 0.5 mg tablet 0.5 mg PO DAILY PRN 07/24/20 04/27/21 risperidone 0.5 mg tablet 0.5 mg PO BID 07/24/20 04/28/21 trazodone 50 mg tablet 25 mg PO BEDTIME 07/24/20 04/28/21 Aspercreme with Aloe 1 appl TOPICAL TID PRN 12/25/20 04/27/21 acetaminophen [Tylenol] 650 mg PO Q6H PRN 12/25/20 04/27/21 guaifenesin 300 mg PO Q4H PRN 12/25/20 04/28/21 meclizine 25 mg PO Q6H PRN MDD 3 12/25/20 04/28/21 Mi-Acid 7.5 ml PO QID PRN 04/28/21 04/28/21 Tresiba FlexTouch U-200 50 unit SUBCUT DAILY 04/28/21 04/28/21 Trulicity 1.5 mg SUBCUT QWEEK 04/28/21 04/28/21 alum-mag hydroxide-simeth 7.5 ml PO BEDTIME PRN 04/28/21 04/28/21 dextrose [Glutose-45] 15 g PO Q15M MDD 3 04/28/21 04/28/21 hydralazine 50 mg PO BID 04/28/21 04/28/21 polyethylene glycol 3350 17 g PO BID 04/28/21 04/28/21 Previous Rx's Medication Instructions Recorded nifedipine 30 mg tablet,extended 30 mg PO DAILY 90 Days #90 tab 07/09/20 release 24 hr losartan 50 mg tablet 50 mg PO DAILY 30 Days #30 tab 07/30/20 lancets 28 gauge #100 ea 07/31/20 pen needle, diabetic 31 gauge x 1 ea SUBCUT TID 30 Days #100 ea 10/03/2002/16 blood sugar diagnostic 1 strip MISCELLANEOUS TID 30 Days 10/18/20 #100 ea sucralfate 1 gram tablet 1 g PO QID 30 Days #120 tab 12/03/20 metoprolol succinate 25 mg 25 mg PO BEDTIME #28 tab 12/17/20 tablet,extended release 24 hr aspirin 81 mg tablet,delayed 81 mg PO DAILY #28 tab 01/13/21 release lactulose 10 gram/15 mL oral 30 ml PO DAILY PRN #473 ml 01/15/21 solution ascorbic acid (vitamin C) 500 mg 500 mg PO BID 30 Days #60 cap 02/01/21 capsule ergocalciferol (vitamin D2) 1,250 1,250 mcg PO Q4W #1 cap 02/28/21 mcg (50,000 unit) capsule ursodiol 300 mg capsule 300 mg PO BID #56 cap 02/28/21 sennosides 8.6 mg tablet 8.6 mg PO BID #56 tab 04/10/21 tamsulosin 0.4 mg capsule 0.4 mg PO BEDTIME #28 cap 04/10/21 empagliflozin 10 mg tablet 10 mg PO QAM #28 tab 04/16/21 atorvastatin 80 mg PO BEDTIME #30 tab 04/29/21 DS: Summary Hospital Course Hospital Course: from admission H+P by hospitalist Lele Savage MD, 04/27/21: 60-year-old male; detention resident; with the past medical history of hypertension, hyperlipidemia, diabetes, chronic kidney disease, vitamin-D deficiency, history of CVA with left-sided hemiplegia, anemia, hearing impairment, GERD presented to the hospital with a chief complaint of right-sided facial droop and slurred speech; subsequently sent to the hospital for further evaluation. Patient denied any chest pain palpitations lightheadedness dizziness. Denies any fever chills cough. Denies any GI or symptoms. I spoke to the patient's guardian Caitlin who mentioned that patient speech at baseline is very difficult to understand; patient walks with the help of walker; Review of all other systems is negative except mentioned above ER course: Per ER team patient NIH Stroke Scale was 3; CT head and showed no acute findings;CT angio head and neck showed chronic findings; discussed with , recommended no tPA, admitted for MRI in the morning Labs were essentially benign at his baseline; blood pressure stable admitted for further management The patient [place] [facility] showed a possible small left pontine ischemic CVA with multiple chronic ischemic areas with extensive microvascular disease. PT and OT evaluated the patient and recommended continuation of outpatient therapy at his detention. [employer] saw the patient and an NDD3 solid/thin liquid diet was recommended. Creatinine was at baseline level; he has CKD3. There was no arrhythmia on telemetry and echocardiography was normal. Aspirin was continued, and statin was intensified. He was discharged back to his detention with instructions to intensify the statin by changing from simvastatin 40 mg qhs to atorvastatin 80 mg qhs and to work with his PCP on improving glycemic and blood pressure control. EEG was done for concern of encephalopathy, though the patient was at baseline mental status by hospital day 2; results are pending at the time of discharge and the patient can follow up with Neurology as an outpatient to review results. Time Spent with Patient Time attestation: Total time spent providing and/or coordinating discharge services: 35 Discharge coordination time: Greater than 30 minutes Quality: Stroke Does the patient have a stroke diagnosis?: Yes Reason for No Anti-thrombotic at DC: N/A - Med Ordered Reason for No Anticoagulant at DC: Not indicated Reason Not Initiating IV-Tpa: Not indicated Reason for No Anti-thrombotic by Day Two: N/A - Med Ordered Reason for No Statin at DC: N/A - Med Ordered Physical Exam Vital Signs: Vital Signs: Last Vital Signs Temp 97.7 F 04/29/21 08:00 Pulse 58 04/29/21 09:45 Resp 20 04/29/21 08:00 BP 122/59 L 04/29/21 09:45 Pulse Ox 97 04/29/21 09:33 Body Mass Index 33.0 Gen: in no acute distress HEENT: sclera anicteric, moist mucus membranes Neck: supple Lungs: clear to auscultation bilaterally Heart: regular rate and rhythm, no murmurs Abd: soft, non-tender, non-distended Ext: no edema Skin: warm/well-perfused Neuro: alert and oriented x3, very slight R facial droop, L hemiparesis Psych: appropriate affect DS: Data Data Completed and Pending Completed studies during hospitalization [Text1]: Laboratory Results WBC 9.3 X10*3/uL (4.8-10.8) 04/28/21 06:14 RBC 4.24 X10*6/uL (4.60-5.80) L 04/28/21 06:14 Hgb 11.8 g/dl (14.0-18.0) L 04/28/21 06:14 Hct 35.6 % (42-52) L 04/28/21 06:14 MCV 84.0 fL (80-98) 04/28/21 06:14 MCH 27.8 pg (27.0-33.0) 04/28/21 06:14 MCHC 33.1 g/dl (31.0-36.0) 04/28/21 06:14 RDW 12.6 % (11.0-16.0) 04/28/21 06:14 Plt Count 217 X10*3/uL (160-400) 04/28/21 06:14 MPV 11.1 fL (9.4-12.4) 04/28/21 06:14 Immature Gran % (Auto) 0.2 % (0.0-0.4) 04/28/21 06:14 Neut % (Auto) 56.6 % (45-73) 04/28/21 06:14 Lymph % (Auto) 29.4 % (20-40) 04/28/21 06:14 Kemper % (Auto) 9.1 % (2-11) 04/28/21 06:14 Eos % (Auto) 4.2 % (0-4) H 04/28/21 06:14 Baso % (Auto) 0.5 % (0-2) 04/28/21 06:14 Lymph # (Auto) 2.8 X10*3/uL (1.2-4.9) 04/28/21 06:14 Kemper # (Auto) 0.9 X10*3/uL (0.1-1.2) 04/28/21 06:14 Eos # (Auto) 0.4 X10*3/uL (0.0-0.4) 04/28/21 06:14 Baso # (Auto) 0.1 X10*3/uL (0.0-0.2) 04/28/21 06:14 Abs Immat Gran (auto) 0.02 X10*3/uL (0.00-0.03) 04/28/21 06:14 Absolute Neuts (auto) 5.3 X10*3/uL (2.0-8.3) 04/28/21 06:14 Absolute Nucleated RBC 0.000 X10*3/uL (0.0-0.012) 04/28/21 06:14 Nucleated RBC % (auto) 0.0 /100WBC (0.0-0.2) 04/28/21 06:14 PT 11.3 SEC (9.9-13.0) 04/27/21 21:36 Whole Blood PT 12.2 sec (11.1-13.5) 04/27/21 20:51 INR 1.0 (0.9-1.1) 04/27/21 21:36 Whole Blood INR 1.0 (0.9-1.1) 04/27/21 20:51 APTT 37.3 SEC (24.1-38.0) 04/27/21 21:36 Sodium 140 mmol/L (135-145) 04/28/21 06:14 Potassium 4.6 mmol/L (3.3-5.1) 04/28/21 06:14 Chloride 109 mmol/L (96-108) H 04/28/21 06:14 Carbon Dioxide 23 mmol/L (22-29) 04/28/21 06:14 Anion Gap 13 (12-20) 04/28/21 06:14 BUN 38 mg/dL (9-16) H 04/28/21 06:14 Creatinine 1.74 mg/dL (0.5-1.4) H 04/28/21 06:14 Estim Creat Clear Calc 49.4 04/28/21 06:14 Estimated GFR 41 04/28/21 06:14 POC Glucose 191 mg/dL (60-115) H 04/29/21 12:41 Random Glucose 130 mg/dL (60-115) H D 04/28/21 06:14 Calcium 9.1 mg/dL (8.4-10.2) 04/28/21 06:14 Total Creatine Kinase 73 U/L (38-174) 04/27/21 21:36 Troponin I High Sens 5.5 ng/L (<3.5-35.0) 04/27/21 23:37 Triglycerides 83 mg/dL 04/28/21 06:14 Cholesterol 118 mg/dL 04/28/21 06:14 LDL Cholesterol, Calc 72 mg/dl 04/28/21 06:14 HDL Cholesterol 30 mg/dL 04/28/21 06:14 COVID-19 (LAYO) Negative (Negative) 04/27/21 21:42 COVID-19 Clin Com See Note 04/27/21 21:[address] 04/27/21 20:49 IMPRESSION: --No acute intracranial pathology. --Similar pattern of multifocal chronic ischemic/encephalomalacia changes throughout the cerebral hemispheres bilaterally, unchanged relative to 03/02/2020 comparison examination. If suspicion persists for acute infarct, MRI is recommended for further evaluation. This critical result was discussed with Dr. Corbin at 2105 hours on 04/27/2021. It was ascertained that the content and urgency of the report was understood at the time of direct communication. Chest X-Ray 04/27/21 20:50 IMPRESSION: Unremarkable examination. Head/Neck CTA 04/27/21 20:50 IMPRESSION: - No definite acute intracranial findings however assessment is limited by the degree of extensive chronic ischemic changes throughout the cerebral hemispheres bilaterally. If there is acute neurologic deficit, MRI would be more sensitive in assessing for any superimposed acute infarcts. - Chronic appearing partial occlusion of the distal right M1 MCA segment and several proximal right M2 MCA branches associated with collaterals reconstituting the more distal right middle cerebral artery branches. There is oligemia within the right MCA territory and an acute on chronic occlusion within the right MCA distribution would be difficult to exclude without any prior studies available for comparison. - There is a severe stenosis involving the distal left M1 MCA segment. - Artifact versus a filling defect within the distal right common carotid artery just proximal to the carotid bifurcation that could reflect adherent thrombus or plaque resulting in a possible high-grade stenosis that is not well assessed secondary to artifact. Lipid rich and calcific atherosclerotic plaque results in a less than 50% stenosis of the proximal right internal carotid artery. - Atherosclerotic calcification results in a severe stenosis of the right vertebral artery origin. - Cervical spondylosis including advanced spondylitic changes at C5-C6 where a disc osteophyte complex results in potential mass effect on the cervical cord that can be further assessed with a cervical spine MRI if there is cervical myelopathy clinically. Stroke protocol CTA result discussed with Dr. Corbin at 9:53 PM on 04/27/2021. Brain MRI 04/28/21 12:32 IMPRESSION: - Possible punctate acute infarct within the left marquez on image 11 of series 3. No additional acute infarcts. - Chronic infarcts within the left and right cerebral hemispheres are redemonstrated. There is global cerebral volume loss and there is background chronic microangiopathy. TTE 04/29/21 - The left ventricular systolic function is normal. The visually estimated ejection fraction is between 60-65%. - There is no evidence of interatrial shunt by agitated saline. - No obvious valvular pathology seen on this study. Discharge Plan Discharge Patient Disposition: Xfer Other Discharge Diagnosis: CVA, encephalopathy Referrals: Return to [facility] [Other] - 1 Week Maria Del Carmen Phelan MD [Physician] - 1 Week Brit Smallwood NP [Primary Care Provider] - 1 Week Discharge Medications: New atorvastatin 80 mg tablet 80 mg PO BEDTIME Qty: 30 RF: 0 Continued nifedipine 30 mg tablet extended release 24hr 30 mg PO DAILY 90 Days Qty: 90 RF: 1 losartan 50 mg tablet 50 mg PO DAILY 30 Days Qty: 30 RF: 10 (DME) lancets [FreeStyle Lancets] 28 gauge misc See Rx Instructions .ROUTE .MEDSUPPLY Qty: 100 RF: 5 pen needle, diabetic [Easy Touch] 31 gauge x 5/16 needle 1 ea subcut TID 30 Days Qty: 100 RF: 6 blood sugar diagnostic [FreeStyle Lite Strips] Strip 1 strip miscellaneous TID 30 Days Qty: 100 RF: 11 sucralfate 1 gram tablet 1 g PO QID 30 Days Qty: 120 RF: 6 metoprolol succinate 25 mg tablet extended release 24 hr 25 mg PO BEDTIME Qty: 28 RF: 4 aspirin 81 mg tablet,delayed release (DR/EC) 81 mg PO DAILY Qty: 28 RF: 3 lactulose [Enulose] 10 gram/15 mL solution 30 ml PO DAILY PRN (Reason: constipation) Qty: 473 RF: 3 ascorbic acid (vitamin C) 500 mg capsule 500 mg PO BID 30 Days Qty: 60 RF: 0 ursodiol 300 mg capsule 300 mg PO BID Qty: 56 RF: 0 ergocalciferol (vitamin D2) [Vitamin D2] 1,250 mcg (50,000 unit) capsule 1,250 mcg PO Q4W Qty: 1 RF: 2 tamsulosin 0.4 mg capsule 0.4 mg PO BEDTIME Qty: 28 RF: 0 sennosides [senna] 8.6 mg tablet 8.6 mg PO BID Qty: 56 RF: 0 empagliflozin [Jardiance] 10 mg tablet 10 mg PO QAM Qty: 28 RF: 1 acetaminophen [Tylenol] 325 mg tablet 650 mg PO Q6H PRN (Reason: temp, headache or general discomfort) RF: 0 meclizine 25 mg tablet 25 mg PO Q6H MDD 3 PRN (Reason: Dizziness) RF: 0 guaifenesin 100 mg/5 mL Liquid 300 mg PO Q4H PRN (Reason: Cough) RF: 0 Aspercreme with Aloe 10 % Cream 1 appl TOPICAL TID PRN (Reason: Pain) RF: 0 dextrose [Glutose-45] 40 % gel 15 g PO Q15M MDD 3 RF: 0 hydralazine 50 mg tablet 50 mg PO BID RF: 0 polyethylene glycol 3350 17 gram/dose powder 17 g PO BID RF: 0 Mi-Acid suspension 7.5 ml PO QID PRN (Reason: GERD) RF: 0 alum-mag hydroxide-simeth 400-400-40 mg/5 mL suspension 7.5 ml PO BEDTIME PRN (Reason: indigestion) RF: 0 Trulicity 3 mg/0.5 mL pen injector 1.5 mg subcut QWEEK RF: 0 Tresiba FlexTouch U-200 200 unit/mL (3 mL) insulin pen 50 unit subcut DAILY RF: 0 risperidone [Risperdal] 0.5 mg tablet 0.5 mg PO BID RF: 0 trazodone 50 mg tablet 25 mg PO BEDTIME RF: 0 hydrocortisone valerate 0.2 % cream 1 applic topical BID PRN (Reason: Itching) RF: 0 lorazepam [Ativan] 0.5 mg tablet 0.5 mg PO DAILY PRN (Reason: Anxiety) RF: 0 Discontinued simvastatin 40 mg tablet 40 mg PO BEDTIME 30 Days Qty: 30 RF: 11 Discharge Orders: Discharge Order (Routine); Ordered 04/29/21 Ordered By: Andrea Cruz Diet: advance to usual diet Activity on Discharge: As tolerated Stand Alone Forms: Patient Portal Discharge page Activity Restrictions/Additional Instructions: NDD3 (chopped) diet Care Plan Goals: prevention of future strokes Health Concerns: recurrent stroke Plan of Treatment: change simvastatin 40 mg to atorvastatin 80 mg to be taken daily at bedtime continue aspirin 81 mg daily work with PCP to control blood pressure and blood sugar Mediterranean diet follow up with Neurology in 2-4 weeks for results of EEG Assessment: as above Patient Instructions: Ischemic Stroke (GEN), Mediterranean Diet (DC)
[2021-04-29 15:36] VITALS: BP 142/68; PULSE 62; RESP 18; TEMP 36.6; O2SAT 95
== END 2021-04-29 16:12 | disposition other institution (70) | DRG 45 ==
LOC: HO.ED 22:24 → HO.EDOVER 22:53 → HO.IMC 04-28 07:02
PROVIDERS: Admitting Provider Hospitalist; Emergency Provider Emergency Medicine; PCP Hospitalist; Visit Provider Family Medicine
DX: I63.9 Cerebral infarction, unspecified (principal); E11.22 Type 2 diabetes mellitus with diabetic chronic kidney disease; N18.30 Chronic kidney disease, stage 3 unspecified; I69.954 Hemiplegia and hemiparesis following unspecified cerebrovascular disease affecting left non-dominant side; E78.5 Hyperlipidemia, unspecified; I12.9 Hypertensive chronic kidney disease with stage 1 through stage 4 chronic kidney disease, or unspecified chronic kidney disease; K21.9 Gastro-esophageal reflux disease without esophagitis; R29.703 NIHSS score 3; R47.81 Slurred speech; N40.0 Benign prostatic hyperplasia without lower urinary tract symptoms; F39 Unspecified mood [affective] disorder; F17.210 Nicotine dependence, cigarettes, uncomplicated; Z71.6 Tobacco abuse counseling; Z20.822 Contact with and (suspected) exposure to COVID-19; Z88.0 Allergy status to penicillin; Z79.82 Long term (current) use of aspirin; Z79.899 Other long term (current) drug therapy
CPT/HCPCS: 36415; 70450; 70496; 70498; 70551; 71045; 80048; 80061; 82550; 82947; 84484; 85025; 85610; 85730; 87635; 92610; 93005; 93306; 95816; 97110; 97116; 97161; 97166; 99285; Q9967

== ENCOUNTER → 2021-05-01 09:14 | Outpatient (BNVA) | payer MEDICAID, SELFPAY | PROVIDERS: PCP Hospitalist; Referring Provider Hospitalist; Visit Provider Surgery ==

== ENCOUNTER 2021-05-14 11:47 | Outpatient (REF) | payer MEDICAID, SELFPAY ==
[2021-05-14 13:37] LABS: Hematocrit 38.5 % (42-52); Hemoglobin 12.4 g/dl (14.0-18.0); Mean Corpuscular HGB Conc 32.2 g/dl (31.0-36.0); Mean Corpuscular Hemoglobin 27.5 pg (27.0-33.0); Mean Corpuscular Volume 85.4 fL (80-98); Mean Platelet Volume 11.4 fL (9.4-12.4); Platelet Count 247 X10*3/uL (160-400); Red Blood Count 4.51 X10*6/uL (4.60-5.80); Red Cell Distribution Width 12.9 % (11.0-16.0); White Blood Count 9.9 X10*3/uL (4.8-10.8)
[2021-05-14 14:15] LABS: Alanine Aminotransferase 9 U/L (0-40); Albumin Level 4.5 g/dL (3.5-5.0); Alkaline Phosphatase 84 U/L (39-117); Anion Gap 13 (12-20); Aspartate Amino Transferase 9 U/L (5-37); Bilirubin Total 0.3 mg/dL (0.0-1.0); Blood Urea Nitrogen 37 mg/dL (9-16); Carbon Dioxide 29 mmol/L (22-29); Chloride 103 mmol/L (96-108); Estimated Glomerular Filt Rate 33; Glucose Random 252 mg/dL (60-115); Potassium 4.6 mmol/L (3.3-5.1); Sodium 140 mmol/L (135-145); Total Protein 7.9 g/dL (6.5-8.0)
[2021-05-14 14:39] LABS: TSH reflex Free T4 1.65 uIU/mL (0.32-4.0)
== END 2021-05-14 11:48 | disposition home or self-care (01) ==
LOC: HO.WFDLDS 11:47
PROVIDERS: Absent Provider Hospitalist; Visit Provider Family Medicine
DX: Z00.00 Encounter for general adult medical examination without abnormal findings (principal); I10 Essential (primary) hypertension
CPT/HCPCS: 36415; 80053; 84443; 85027

== ENCOUNTER 2021-05-15 12:33 | Emergency (ER) | payer MEDICAID, SELFPAY ==
--- NOTE | ~2021-05-15 | CT_ITS ---
EXAMINATION: CT HEAD WITHOUT CONTRAST CLINICAL INFORMATION: Headache. Stroke 2 weeks prior. Rule out bleed. COMPARISON: April 28, 2021 and April 27, 2021 TECHNIQUE: Contiguous axial imaging was performed from the skull base to vertex without intravenous administration of contrast. This CT examination was performed using dose optimization techniques as appropriate, variously including the following: *Automated exposure control *Adjustment of mA and/or kV according to patient size (this includes techniques or standardized protocols for targeted exams where dose is matched to indication/reason for exam; i.e. extremities or head) *Use of iterative reconstruction technique DLP: 869 mGy-cm FINDINGS: There is no evidence of acute intracranial hemorrhage or acute territorial infarction. No abnormal mass effect or midline shift is seen. No extra-axial fluid collections are identified. There are stable chronic infarct with encephalomalacia within the left and right cerebral hemispheres. There is prominence of ventricles, sulci, and cisterns. Periventricular white matter low density is also noted consistent with microangiopathy. The osseous structures and soft tissues are normal. The mastoid air cells and visualized portions of the paranasal sinuses are well aerated. CT/CT head/brain wo con IMPRESSION: No acute intracranial pathology. Chronic ischemic events within the right and left cerebral hemispheres with volume loss.
[2021-05-15 12:43] VITALS: BP 112/80; PULSE 60; O2SAT 97
[2021-05-15 12:48] VITALS: BP 152/75; PULSE 62; RESP 18; TEMP 36.3; O2SAT 96; BMI 29.0
--- NOTE | 2021-05-15 16:07 | ED.HA ---
HPI - Headache General Chief Complaint: Headache Stated Complaint: headache Time Seen by Provider: 05/15/21 15:52 Source: patient Mode of arrival: ambulatory Limitations: language barrier (Kinyarwanda speaking only, lumber tailer used) History of Present Illness HPI Narrative: 60-year-old male who presents emergency department for evaluation of a headache x3 days. The patient was hospitalized her approximately 2 weeks prior on 04/29/2021 for right-sided facial droop slurred speech, MRI showed small right pontine stroke. The patient did not receive tPA. The patient states that he does get headaches but over the past 3 days he has had a headache that is worse than usual. He states the headache is located on the back of his head, the headache is intermittent and comes and goes. The headache is a throbbing sensation which is 8/10 at its worst. He denied any associated numbness, weakness, difficulty talking, nausea or vomiting. The patient was given Tylenol for his headache without any relief. The patient is in a skilled nursing and apparently he told his skilled nursing staff that he was depressed because of his headache, therefore they brought him to the emergency department for evaluation. There has been no documented fever, myalgias, arthralgias or diarrhea. The patient has received a 2 shot COVID vaccination. Related Data Home Medications Medication Instructions Recorded Confirmed hydrocortisone valerate 0.2 % 1 applic TOPICAL BID PRN 07/24/20 05/01/21 topical cream lorazepam 0.5 mg tablet (Ativan) 0.5 mg PO DAILY PRN 07/24/20 05/01/21 risperidone 0.5 mg tablet 0.5 mg PO BID 07/24/20 05/01/21 (Risperdal) trazodone 50 mg tablet 25 mg PO BEDTIME 07/24/20 05/01/21 acetaminophen 325 mg tablet 650 mg PO Q6H PRN 12/25/20 05/01/21 (Tylenol) guaifenesin 100 mg/5 mL oral liquid 300 mg PO Q4H PRN 12/25/20 05/01/21 meclizine 25 mg tablet 25 mg PO Q6H PRN MDD 3 12/25/20 05/01/21 trolamine salicylate-aloe vera 10 1 appl TOPICAL TID PRN 12/25/20 05/01/21 % topical cream (Aspercreme with Aloe) Mi-Acid 7.5 ml PO QID PRN 04/28/21 05/01/21 aluminum-mag hydroxide-simethicone 7.5 ml PO BEDTIME PRN 04/28/21 05/01/21 400 mg-400 mg-40 mg/5 mL oral susp dextrose 40 % oral gel (Glutose-45) 15 g PO Q15M MDD 3 04/28/21 05/01/21 dulaglutide 3 mg/0.5 mL 1.5 mg SUBCUT QWEEK 04/28/21 05/01/21 subcutaneous pen injector (Trulicity) hydralazine 50 mg tablet 50 mg PO BID 04/28/21 05/01/21 polyethylene glycol 3350 17 17 g PO BID 04/28/21 05/01/21 gram/dose oral powder insulin degludec 200 unit/mL (3 45 unit SUBCUT DAILY ml 04/30/21 05/01/21 mL) subcutaneous pen (Tresiba FlexTouch U-200 insulin) Previous Rx's Medication Instructions Recorded nifedipine 30 mg tablet,extended 30 mg PO DAILY 90 Days #90 tab 07/09/20 release 24 hr lancets 28 gauge (FreeStyle #100 ea 07/31/20 Lancets) pen needle, diabetic 31 gauge x 1 ea SUBCUT TID 30 Days #100 ea 10/03/2002/16 (Easy Touch) blood sugar diagnostic (FreeStyle 1 strip MISCELLANEOUS TID 30 Days 10/18/20 Lite Strips) #100 ea sucralfate 1 gram tablet 1 g PO QID 30 Days #120 tab 12/03/20 lactulose 10 gram/15 mL oral 30 ml PO DAILY PRN #473 ml 01/15/21 solution (Enulose) ergocalciferol (vitamin D2) 1,250 1,250 mcg PO Q4W #1 cap 02/28/21 mcg (50,000 unit) capsule (Vitamin D2) sennosides 8.6 mg tablet (senna) 8.6 mg PO BID #56 tab 04/10/21 empagliflozin 10 mg tablet 10 mg PO QAM #28 tab 04/16/21 (Jardiance) atorvastatin 80 mg tablet 80 mg PO BEDTIME #30 tab 04/29/21 ascorbic acid (vitamin C) 500 mg 500 mg PO BID 30 Days #60 cap 05/03/21 capsule tamsulosin 0.4 mg capsule 0.4 mg PO BEDTIME #28 cap 05/03/21 ursodiol 300 mg capsule 300 mg PO BID #56 cap 05/03/21 aspirin 81 mg tablet,delayed 81 mg PO DAILY #28 tab 05/06/21 release metoprolol succinate 25 mg 25 mg PO BEDTIME #28 tab 05/11/21 tablet,extended release 24 hr losartan 50 mg tablet 75 mg PO DAILY 30 Days #45 tab 05/14/21 Allergies Allergy/AdvReac Type Severity Reaction Status Date / Time amlodipine [From [facility]] Allergy Severe due to Verified 05/14/21 11:12 poor renal function ibuprofen Allergy Severe 2/2 renal Verified 05/14/21 11:12 function Review of Systems Review of Systems: Yes all other systems are reviewed and are negative [facility] Past Medical History Medical History Anemia Aphagia Bronchitis Cerebrovascular accident Chronic kidney disease, stage 3 CKD (chronic kidney disease) Constipation Diabetes Diabetes type 2, uncontrolled Encephalopathy Epigastric pain Essential hypertension GERD (gastroesophageal reflux disease) Hearing loss Hemiplegia HTN (hypertension) Hyperlipidemia Hyperlipidemia Hypertensive chronic kidney disease with stage 1 through stage 4 chronic kidney disease, or unspecified chronic kidney disease Hypoglycemia unawareness associated with type 2 diabetes mellitus Postoperative bleeding from incision Preglaucoma Skin cancer Skin lesion Squamous cell carcinoma of skin Stroke Type 2 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 Unsteady gait Vascular device, implant, or graft complication Vitamin D deficiency Vitamin D deficiency Surgical History History of exploratory laparotomy History of surgical removal of skin lesion Family History Family History Father Myocardial infarction Mother Throat cancer Diabetes Family/Other FH: mental illness Brother In good health Sister In good health Sister In good health Daughter In good health Social History Social History 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 Household Members Other:: skilled nursing Housing: Group Home Do you presently have visiting nurse or other home services: Yes Alcohol intake: never Patient Tobacco Use Status: Former Tobacco user Tobacco use type: Cigarette Cigarette Packs Per Day: 2 Cigarettes Per Day: 40.0 Years Smoked: 16 e-Cigarette/Vaping Use: Former Use Second Hand Smoke Exposure: No Advance Directives: No Advance Directives Information Provided: No Advance Directives Date on File: 12/02/20 service: No Current occupational status: disabled Physical Exam Vital Signs: Vital Signs: Last Vital Signs Temp 97.4 F 05/15/21 12:48 Pulse 69 05/15/21 18:45 Resp 16 05/15/21 18:45 BP 114/51 L 05/15/21 18:45 Pulse Ox 98 05/15/21 18:45 Body Mass Index 29.0 Const: General: cooperative and no acute distress Orientation/consciousness: oriented to person and oriented to place Limitations: no limitations HENMT: Head: Yes normal to inspection, Yes normocephalic and Yes atraumatic Ears: external ears normal General nose exam: Normal external nose present Face and sinus: Yes normal facial exam Mouth: Normal oral and palatal mucosa present Throat: Yes posterior oropharynx normal Eyes: General: appearance normal, both eyes and all related structures Pupils: Equal, round and reactive pupils present Neck: Neck: Yes normal visual inspection, Yes no lymphadenopathy, Yes trachea midline and Yes supple Chest: Chest palpation & inspection: normal inspection of the chest and normal palpation of entire chest wall Resp: Effort & Inspection: normal respiratory effort and able to speak in complete sentences Auscultation: clear to auscultation bilaterally Cardio: Rate: regular rate Rhythm: regular rhythm Heart sounds: S1 normal heart sound present, S2 normal heart sound present and no murmurs GI: Inspection: Yes normal to inspection Palpation (GI): Soft to palpation, nontender and no guarding Auscultation: normal bowel sounds : General: Yes no CVA tenderness Back/Spine/Pelvis: Back: no CVA tenderness Skin: General skin exam: no rashes or lesions noted Neuro: General: oriented to person and oriented to place Cranial nerves: Yes CN's II-XII intact bilaterally and Yes Equal, round and reactive pupils present Cognition (Neuro): normal cognition Motor exam (neuro): 5/5 motor strength present throughout Extrem: General: Yes normal to inspection Psych: Appearance: grossly normal Speech and movement: Normal speech and movement present Affect: normal affect Attitude: cooperative Thought process: Normal thought process present Thought content: Normal thought content present Course Course Course Narrative: 60-year-old male who was admitted on 04/29/2021 for right-sided facial droop difficulty speaking and had an MRI which revealed an acute, small left pontine stroke, he did not receive tPA. Patient now presents with an intermittent headache x3 days, headache is 8/10 at its worse and has no other associated symptoms. Signs did reveal an elevated blood pressure of 152/75 the patient is a known hypertensive, vital signs were otherwise unremarkable. Patient's physical examination was unremarkable and his neurologic exam was nonfocal. Given his recent stroke, I did order a CT scan of the head without IV contrast. Also, I ordered a CBC, CMP, PT and PT INR, lactic acid. An IV will be inserted and the patient's headache will be treated with normal saline x1 L, Reglan 10 mg IV and Benadryl 50 mg IV. Will also receive Tylenol 975 mg orally. 1920: The patient's laboratory evaluation is consistent with his baseline. CT scan of the head revealed no acute changes from his previous CT scan with no evidence for an acute stroke or bleed. The patient did get improvement with the above treatment for his headache . The patient does have essential hypertension I believe that his elevated blood pressure was related to his headache. The patient will be discharged back to his skilled nursing. The patient was given verbal and printed instructions prior to discharge. The patient was advised to follow-up with his PCP in 2 days and to return to the emergency department if his symptoms get worse or if he develops any new symptoms that are concerning to him. [facility] - Headache Lab Data Result diagrams: 05/15/21 16:43 05/15/21 16:43 Labs: Lab Results 05/15/21 05/15/21 05/15/21 Range/Units 16:43 16:43 16:43 WBC 10.8 (4.8-10.8) X10*3/uL RBC 4.62 (4.60-5.80) X10*6/uL Hgb 12.8 L (14.0-18.0) g/dl Hct 39.0 L (42-52) % MCV 84.4 (80-98) fL MCH 27.7 (27.0-33.0) pg MCHC 32.8 (31.0-36.0) g/dl RDW 13.1 (11.0-16.0) % Plt Count 228 (160-400) X10*3/uL MPV 10.8 (9.4-12.4) fL Immature Gran % (Auto) 0.3 (0.0-0.4) % Neut % (Auto) 53.9 (45-73) % Lymph % (Auto) 33.1 (20-40) % Routt % (Auto) 9.0 (2-11) % Eos % (Auto) 3.3 (0-4) % Baso % (Auto) 0.4 (0-2) % Lymph # (Auto) 3.6 (1.2-4.9) X10*3/uL Routt # (Auto) 1.0 (0.1-1.2) X10*3/uL Eos # (Auto) 0.4 (0.0-0.4) X10*3/uL Baso # (Auto) 0.0 (0.0-0.2) X10*3/uL Abs Immat Gran (auto) 0.03 (0.00-0.03) X10*3/uL Absolute Neuts (auto) 5.8 (2.0-8.3) X10*3/uL Absolute Nucleated RBC 0.000 (0.0-0.012) X10*3/uL Nucleated RBC % (auto) 0.0 (0.0-0.2) /100WBC PT 11.2 (9.9-13.0) SEC INR 1.0 (0.9-1.1) APTT 38.0 (24.1-38.0) SEC Sodium 142 (135-145) mmol/L Potassium 4.5 (3.3-5.1) mmol/L Chloride 107 (96-108) mmol/L Carbon Dioxide 25 (22-29) mmol/L Anion Gap 15 (12-20) BUN 34 H (9-16) mg/dL Creatinine 1.81 H (0.5-1.4) mg/dL Estim Creat Clear Calc 47.6 Estimated GFR 39 Random Glucose 90 D (60-115) mg/dL Lactic Acid (0.5-2.0) mmol/L Calcium 9.7 (8.4-10.2) mg/dL Total Bilirubin 0.4 (0.0-1.0) mg/dL AST 10 (5-37) U/L ALT 9 (0-40) U/L Alkaline Phosphatase 84 (39-117) U/L Total Protein 8.0 (6.5-8.0) g/dL Albumin 4.6 (3.5-5.0) g/dL 05/15/21 Range/Units 16:43 WBC (4.8-10.8) X10*3/uL RBC (4.60-5.80) X10*6/uL Hgb (14.0-18.0) g/dl Hct (42-52) % MCV (80-98) fL MCH (27.0-33.0) pg MCHC (31.0-36.0) g/dl RDW (11.0-16.0) % Plt Count (160-400) X10*3/uL MPV (9.4-12.4) fL Immature Gran % (Auto) (0.0-0.4) % Neut % (Auto) (45-73) % Lymph % (Auto) (20-40) % Routt % (Auto) (2-11) % Eos % (Auto) (0-4) % Baso % (Auto) (0-2) % Lymph # (Auto) (1.2-4.9) X10*3/uL Routt # (Auto) (0.1-1.2) X10*3/uL Eos # (Auto) (0.0-0.4) X10*3/uL Baso # (Auto) (0.0-0.2) X10*3/uL Abs Immat Gran (auto) (0.00-0.03) X10*3/uL Absolute Neuts (auto) (2.0-8.3) X10*3/uL Absolute Nucleated RBC (0.0-0.012) X10*3/uL Nucleated RBC % (auto) (0.0-0.2) /100WBC PT (9.9-13.0) SEC INR (0.9-1.1) APTT (24.1-38.0) SEC Sodium (135-145) mmol/L Potassium (3.3-5.1) mmol/L Chloride (96-108) mmol/L Carbon Dioxide (22-29) mmol/L Anion Gap (12-20) BUN (9-16) mg/dL Creatinine (0.5-1.4) mg/dL Estim Creat Clear Calc Estimated GFR Random Glucose (60-115) mg/dL Lactic Acid 0.6 (0.5-2.0) mmol/L Calcium (8.4-10.2) mg/dL Total Bilirubin (0.0-1.0) mg/dL AST (5-37) U/L ALT (0-40) U/L Alkaline Phosphatase (39-117) U/L Total Protein (6.5-8.0) g/dL Albumin (3.5-5.0) g/dL Discharge Plan Discharge Clinical Impression: Headache Qualifiers: Headache type: unspecified Headache chronicity pattern: acute headache Intractability: not intractable Qualified Code(s): R51.9 - Headache, unspecified Patient Disposition: Home, Self-Care Instructions: Acute Headache (ED) Additional Instructions: Your laboratory evaluation was unchanged from your previous studies. The CT scan of your head revealed no new stroke or bleeding in the brain and is unchanged from her previous CT scan. Your headache most likely caused your blood pressure to get high. Continue to take Tylenol as prescribed by your doctor for your headaches. Follow-up with your doctor in 2 days. Please return to the emergency department if your symptoms get worse or if you develop any symptoms that are concerning to you. Prescriptions: No Action nifedipine 30 mg tablet extended release 24hr 30 mg PO DAILY 90 Days Qty: 90 RF: 1 (DME) lancets [FreeStyle Lancets] 28 gauge misc See Rx Instructions .ROUTE .MEDSUPPLY Qty: 100 RF: 5 pen needle, diabetic [Easy Touch] 31 gauge x 5/16 needle 1 ea subcut TID 30 Days Qty: 100 RF: 6 blood sugar diagnostic [FreeStyle Lite Strips] Strip 1 strip miscellaneous TID 30 Days Qty: 100 RF: 11 sucralfate 1 gram tablet 1 g PO QID 30 Days Qty: 120 RF: 6 lactulose [Enulose] 10 gram/15 mL solution 30 ml PO DAILY PRN (Reason: constipation) Qty: 473 RF: 3 ergocalciferol (vitamin D2) [Vitamin D2] 1,250 mcg (50,000 unit) capsule 1,250 mcg PO Q4W Qty: 1 RF: 2 sennosides [senna] 8.6 mg tablet 8.6 mg PO BID Qty: 56 RF: 0 empagliflozin [Jardiance] 10 mg tablet 10 mg PO QAM Qty: 28 RF: 1 Tresiba FlexTouch U-200 200 unit/mL (3 mL) insulin pen 45 unit subcut DAILY RF: 0 ascorbic acid (vitamin C) 500 mg capsule 500 mg PO BID 30 Days Qty: 60 RF: 0 tamsulosin 0.4 mg capsule 0.4 mg PO BEDTIME Qty: 28 RF: 0 ursodiol 300 mg capsule 300 mg PO BID Qty: 56 RF: 3 aspirin 81 mg tablet,delayed release (DR/EC) 81 mg PO DAILY Qty: 28 RF: 3 metoprolol succinate 25 mg tablet extended release 24 hr 25 mg PO BEDTIME Qty: 28 RF: 4 acetaminophen [Tylenol] 325 mg tablet 650 mg PO Q6H PRN (Reason: temp, headache or general discomfort) RF: 0 meclizine 25 mg tablet 25 mg PO Q6H MDD 3 PRN (Reason: Dizziness) RF: 0 guaifenesin 100 mg/5 mL Liquid 300 mg PO Q4H PRN (Reason: Cough) RF: 0 Aspercreme with Aloe 10 % Cream 1 appl TOPICAL TID PRN (Reason: Pain) RF: 0 dextrose [Glutose-45] 40 % gel 15 g PO Q15M MDD 3 RF: 0 hydralazine 50 mg tablet 50 mg PO BID RF: 0 polyethylene glycol 3350 17 gram/dose powder 17 g PO BID RF: 0 Mi-Acid suspension 7.5 ml PO QID PRN (Reason: GERD) RF: 0 alum-mag hydroxide-simeth 400-400-40 mg/5 mL suspension 7.5 ml PO BEDTIME PRN (Reason: indigestion) RF: 0 Trulicity 3 mg/0.5 mL pen injector 1.5 mg subcut QWEEK RF: 0 atorvastatin 80 mg tablet 80 mg PO BEDTIME Qty: 30 RF: 0 risperidone [Risperdal] 0.5 mg tablet 0.5 mg PO BID RF: 0 trazodone 50 mg tablet 25 mg PO BEDTIME RF: 0 hydrocortisone valerate 0.2 % cream 1 applic topical BID PRN (Reason: Itching) RF: 0 lorazepam [Ativan] 0.5 mg tablet 0.5 mg PO DAILY PRN (Reason: Anxiety) RF: 0 losartan 50 mg tablet 75 mg PO DAILY 30 Days Qty: 45 RF: 10
[2021-05-15] MEDS: 0.9 % Sodium Chloride 1,000 ML 999 ML IV (16:45)
[2021-05-15] MEDS: Acetaminophen 325 MG TABLET 975 MG PO (16:45)
[2021-05-15] MEDS: Metoclopramide HCl 10 MG/2 ML VIAL IVPUSH (16:45)
[2021-05-15] MEDS: diphenhydrAMINE HCL 50 MG/ML VIAL IVPUSH (16:45)
[2021-05-15 16:51] VITALS: BP 141/74; PULSE 82; RESP 16; O2SAT 98
[2021-05-15 16:59] LABS: MANUAL DIFF FLAG NO
[2021-05-15 17:01] LABS: Basophils Percent Auto 0.4 % (0-2); Eosinophils Absolute Auto 0.4 X10*3/uL (0.0-0.4); Eosinophils Percent Auto 3.3 % (0-4); Hemoglobin 12.8 g/dl (14.0-18.0); Imm Gran Abs Auto 0.03 X10*3/uL (0.00-0.03); Imm Gran Pct Auto 0.3 % (0.0-0.4); Lymphocytes Absolute Auto 3.6 X10*3/uL (1.2-4.9); Lymphocytes Percent Auto 33.1 % (20-40); Mean Corpuscular HGB Conc 32.8 g/dl (31.0-36.0); Mean Corpuscular Hemoglobin 27.7 pg (27.0-33.0); Mean Corpuscular Volume 84.4 fL (80-98); Mean Platelet Volume 10.8 fL (9.4-12.4); Neutrophils Absolute Auto 5.8 X10*3/uL (2.0-8.3); Neutrophils Percent Auto 53.9 % (45-73); Platelet Count 228 X10*3/uL (160-400); Red Blood Count 4.62 X10*6/uL (4.60-5.80); Red Cell Distribution Width 13.1 % (11.0-16.0); White Blood Count 10.8 X10*3/uL (4.8-10.8)
[2021-05-15 17:06] LABS: Prothrombin Time 11.2 SEC (9.9-13.0)
[2021-05-15 17:18] LABS: Lactic Acid 0.6 mmol/L (0.5-2.0)
[2021-05-15 17:25] LABS: Alanine Aminotransferase 9 U/L (0-40); Albumin Level 4.6 g/dL (3.5-5.0); Alkaline Phosphatase 84 U/L (39-117); Anion Gap 15 (12-20); Aspartate Amino Transferase 10 U/L (5-37); Bilirubin Total 0.4 mg/dL (0.0-1.0); Blood Urea Nitrogen 34 mg/dL (9-16); Calcium 9.7 mg/dL (8.4-10.2); Carbon Dioxide 25 mmol/L (22-29); Chloride 107 mmol/L (96-108); Creatinine Clr Calc Pharmacy 47.6; Estimated Glomerular Filt Rate 39; Glucose Random 90 mg/dL (60-115); Potassium 4.5 mmol/L (3.3-5.1); Sodium 142 mmol/L (135-145)
[2021-05-15 18:45] VITALS: BP 114/51; PULSE 69; RESP 16; O2SAT 98
== END 2021-05-15 21:31 | disposition home or self-care (01) ==
PROVIDERS: Emergency Provider Emergency Medicine Emergency Medical Services
DX: R51.9 Headache, unspecified (principal); E11.9 Type 2 diabetes mellitus without complications; I10 Essential (primary) hypertension; Z79.4 Long term (current) use of insulin; Z79.899 Other long term (current) drug therapy
CPT/HCPCS: 36415; 70450; 80053; 83605; 85025; 85610; 85730; 96361; 96374; 96375; 99284; J1200; J2765

== ENCOUNTER 2021-06-02 14:29 | Outpatient (REF) | payer MEDICAID, SELFPAY ==
[2021-06-02 16:08] LABS: Influenza A PCR NEGATIVE (Negative); Influenza B PCR NEGATIVE (Negative); Resp Syncy Virus RNA Qual PCR NEGATIVE (Negative); SARS COV2 PCR INHOUSE NEGATIVE (Negative)
== END 2021-06-02 14:30 | disposition home or self-care (01) ==
LOC: HO.LNP 14:29
PROVIDERS: Visit Provider Family Medicine
DX: Z20.822 Contact with and (suspected) exposure to COVID-19 (principal); R05 Cough
CPT/HCPCS: 0241U

== ENCOUNTER 2021-08-26 14:38 | Outpatient (REF) | payer MEDICAID, SELFPAY ==
[2021-08-26 15:13] LABS: Appearance Urine CLEAR; Color Urine YELLOW; Glucose Urine UA >=1000 MG/DL (NEG); Leukocyte Esterase Urine NEG (NEG); Nitrite Urine NEG (NEG); PH 5.5 (5.0-8.0); Specific Gravity - Urine <= 1.005 (1.005-1.025); Urine Blood NEG (NEG); Urine Ketones NEG (NEG); Urine Protein NEG (NEG-TRACE)
[2021-08-26 15:29] LABS: RBC Urine 0 /HPF (0)
[2021-08-26 15:30] LABS: WBC Urine 0-2 /HPF (0-4)
== END 2021-08-26 14:39 | disposition home or self-care (01) ==
LOC: HO.LNP 14:38
PROVIDERS: Visit Provider Hospitalist
DX: R30.0 Dysuria (principal)
CPT/HCPCS: 81001; 81003

== ENCOUNTER 2021-08-27 07:11 | Outpatient (REF) | payer MEDICAID, SELFPAY ==
[2021-08-27 08:24] LABS: Estimated Average Glucose 203 mg/dL; Hemoglobin A1c % 8.7 %
[2021-08-27 08:51] LABS: Alanine Aminotransferase 9 U/L (0-40); Albumin Level 4.4 g/dL (3.5-5.0); Alkaline Phosphatase 81 U/L (39-117); Anion Gap 14 (12-20); Aspartate Amino Transferase 8 U/L (5-37); Bilirubin Total 0.2 mg/dL (0.0-1.0); Blood Urea Nitrogen 31 mg/dL (9-16); Calcium 9.6 mg/dL (8.4-10.2); Carbon Dioxide 24 mmol/L (22-29); Chloride 109 mmol/L (96-108); Cholesterol 120 mg/dL; Estimated Glomerular Filt Rate 37; Glucose Fasting 173 mg/dL (60-99); HDL Cholesterol 32 mg/dL; LDL Cholesterol Calculated 62 mg/dl; Potassium 5.1 mmol/L (3.3-5.1); Sodium 142 mmol/L (135-145); Total Protein 7.9 g/dL (6.5-8.0); Triglycerides 132 mg/dL
[2021-08-27 08:58] LABS: Appearance Urine CLEAR; Color Urine YELLOW; Glucose Urine UA >=1000 MG/DL (NEG); Leukocyte Esterase Urine NEG (NEG); Nitrite Urine NEG (NEG); PH 5.5 (5.0-8.0); Specific Gravity - Urine 1.015 (1.005-1.025); Urine Blood NEG (NEG); Urine Ketones NEG (NEG); Urine Protein NEG (NEG-TRACE)
[2021-08-27 09:21] LABS: Creatinine Urine 61.77 mg/dL
[2021-08-27 09:32] LABS: RBC Urine 0 /HPF (0); Squamous Epithelial Cell Urine TRACE /LPF; WBC Urine 0-2 /HPF (0-4)
== END 2021-08-27 07:12 | disposition home or self-care (01) ==
LOC: HO.LAB 07:11
PROVIDERS: Family Medicine; PCP Hospitalist; Visit Provider Hospitalist
DX: Z00.00 Encounter for general adult medical examination without abnormal findings (principal); I12.9 Hypertensive chronic kidney disease with stage 1 through stage 4 chronic kidney disease, or unspecified chronic kidney disease; N18.30 Chronic kidney disease, stage 3 unspecified; E11.22 Type 2 diabetes mellitus with diabetic chronic kidney disease; Z79.4 Long term (current) use of insulin
CPT/HCPCS: 36415; 80048; 80053; 80061; 81001; 81003; 82043; 83036

== ENCOUNTER → 2021-09-02 08:19 | Outpatient (BNVA) | payer MEDICAID, SELFPAY | PROVIDERS: PCP Hospitalist; Visit Provider Nurse Practitioner Gerontology | DX: E11.42 Type 2 diabetes mellitus with diabetic polyneuropathy (principal); E11.649 Type 2 diabetes mellitus with hypoglycemia without coma; E11.22 Type 2 diabetes mellitus with diabetic chronic kidney disease; I12.9 Hypertensive chronic kidney disease with stage 1 through stage 4 chronic kidney disease, or unspecified chronic kidney disease; N18.30 Chronic kidney disease, stage 3 unspecified; E78.5 Hyperlipidemia, unspecified; E55.9 Vitamin D deficiency, unspecified; Z79.4 Long term (current) use of insulin | CPT/HCPCS: 82947; 99212 ==

== ENCOUNTER 2021-09-06 15:45 | Emergency (ER) | payer MEDICAID, SELFPAY ==
--- NOTE | ~2021-09-06 | US_ITS ---
EXAMINATION: US VENOUS ULTRASOUND WITH DOPPLER LOWER EXTREMITY, RIGHT CLINICAL INFORMATION: Pain and swelling COMPARISON: None TECHNIQUE: Ultrasound of the deep veins is performed from the hip to the calf with compression sonography and color and pulse Doppler assessment. Spectral analysis with color-flow imaging is performed. FINDINGS: There is normal venous compression and respiratory variation and augmented flow. The visualized common femoral vein shows no evidence of DVT. The profunda femoral vein is patent. The mid and distal superficial femoral veins, and popliteal vein are unable to be completely compressed, possibly representing nonocclusive thrombus. The posterior tibial and peroneal veins are patent. There is no significant popliteal fossa cyst. US/US venous duplex LE RT IMPRESSION: Possible nonocclusive thrombus within the mid/distal superficial femoral vein and popliteal vein.
--- NOTE | ~2021-09-06 | XR_ITS ---
EXAMINATION: XR FOOT, RIGHT CLINICAL INFORMATION: Swelling and erythema third/fourth toes. COMPARISON: None TECHNIQUE: AP, lateral, and oblique views of the right foot. FINDINGS: No acute fracture or dislocation. No periosteal reaction, cortical destruction or intramedullary lucency to suggest osteomyelitis. Small marginal osteophytes along the first metatarsophalangeal joint. Mild soft tissue swelling about the foot. XR/XR foot RT 2V IMPRESSION: No fractures. No radiographic evidence of osteomyelitis.
[2021-09-06 17:44] VITALS: BP 153/69; PULSE 56; RESP 18; TEMP 36.2; O2SAT 98; BMI 29.6
[2021-09-06 20:05] VITALS: BP 137/73; PULSE 57; RESP 16; TEMP 36.8; O2SAT 98
--- NOTE | 2021-09-06 21:48 | ED.EXTPRO ---
HPI - Extremity Problem General Chief complaint: Extremity Problem Stated complaint: R/O DVT Time Seen by Provider: 09/06/21 20:57 Source: patient Mode of arrival: ambulatory Limitations: language barrier (Turkmen speaking only, double corner cutter used) History of Present Illness HPI Narrative: 61-year-old male brought to the emergency department for evaluation of pain and swelling of his right lower extremity. Patient lives in a [facility]. he states that his toes began to hurt him yesterday. He states that today the pain got worse and his toes, ankle, and calf for swollen. He states the pain is a constant, sharp pain. Denied fever, chills, nausea, vomiting. He denied chest pain, shortness of breath, dyspnea on exertion. According to the ED nursing notes, the physician who oversees the [facility] suspects possible DVT to the right foot and sent the patient to the emergency department for ultrasound evaluation. Related Data Home Medications Medication Instructions Recorded Confirmed hydrocortisone valerate 0.2 % 1 applic TOPICAL BID PRN 07/24/20 09/02/21 topical cream lorazepam 0.5 mg tablet (Ativan) 0.5 mg PO DAILY PRN 07/24/20 09/02/21 risperidone 0.5 mg tablet 0.5 mg PO BID 07/24/20 09/02/21 (Risperdal) trazodone 50 mg tablet 25 mg PO BEDTIME 07/24/20 09/02/21 acetaminophen 325 mg tablet 650 mg PO Q6H PRN 12/25/20 09/02/21 (Tylenol) guaifenesin 100 mg/5 mL oral liquid 300 mg PO Q4H PRN 12/25/20 09/02/21 meclizine 25 mg tablet 25 mg PO Q6H PRN MDD 3 12/25/20 09/02/21 trolamine salicylate-aloe vera 10 1 appl TOPICAL TID PRN 12/25/20 09/02/21 % topical cream (Aspercreme with Aloe) Mi-Acid 7.5 ml PO QID PRN 04/28/21 07/23/21 aluminum-mag hydroxide-simethicone 7.5 ml PO BEDTIME PRN 04/28/21 07/23/21 400 mg-400 mg-40 mg/5 mL oral susp dextrose 40 % oral gel (Glutose-45) 15 g PO Q15M MDD 3 07/26/21 11/30/21 Previous Rx's Medication Instructions Recorded pen needle, diabetic 31 gauge x 1 ea SUBCUT TID 30 Days #100 ea 10/03/20 5/16 (Easy Touch) blood sugar diagnostic (FreeStyle 1 strip MISCELLANEOUS TID 30 Days 10/18/20 Lite Strips) #100 ea lactulose 10 gram/15 mL oral 30 ml PO DAILY PRN #473 ml 01/15/21 solution (Enulose) ursodiol 300 mg capsule 300 mg PO BID #56 cap 05/03/21 aspirin 81 mg tablet,delayed 81 mg PO DAILY #28 tab 05/06/21 release metoprolol succinate 25 mg 25 mg PO BEDTIME #28 tab 05/11/21 tablet,extended release 24 hr losartan 50 mg tablet 75 mg PO DAILY 30 Days #45 tab 05/14/21 atorvastatin 80 mg tablet 80 mg PO BEDTIME 90 Days #90 tab 05/30/21 empagliflozin 10 mg tablet 10 mg PO QAM #28 tab 05/30/21 (Jardiance) hydralazine 50 mg tablet 50 mg PO BID 90 Days #180 tab 05/30/21 nifedipine 30 mg tablet,extended 30 mg PO DAILY 90 Days #90 tab 05/30/21 release 24 hr sucralfate 1 gram tablet 1 g PO QID 30 Days #120 tab 05/30/21 tamsulosin 0.4 mg capsule 0.4 mg PO BEDTIME #28 cap 05/30/21 ergocalciferol (vitamin D2) 1,250 1,250 mcg PO Q4W #1 cap 06/04/21 mcg (50,000 unit) capsule (Vitamin D2) clotrimazole-betamethasone 1 1 appl TOPICAL BID 10 Days #15 g 06/12/21 %-0.05 % topical cream tramadol 50 mg tablet 50 mg PO BID PRN 3 Days #6 tab 06/12/21 sennosides 8.6 mg tablet (senna) 8.6 mg PO BID 30 Days #60 tab 06/17/21 miscellaneous medical supply #1 ea 07/11/21 polyethylene glycol 3350 17 17 g PO BID 30 Days #1020 g 07/16/21 gram/dose oral powder ascorbic acid (vitamin C) 500 mg 500 mg PO DAILY 90 Days #90 tab 09/01/21 tablet lancets 28 gauge (Pressure #100 ea 09/01/21 Activated Lancets) dulaglutide 4.5 mg/0.5 mL 4.5 mg (0.5 mL) SUBCUT QWEEK #2 ml 09/02/21 subcutaneous pen injector (Trulicity) insulin degludec 200 unit/mL (3 42 unit (0.21 mL) SUBCUT DAILY #9 09/02/21 mL) subcutaneous pen (Tresiba ml FlexTouch U-200 insulin) apixaban 5 mg (74 tabs) tablets in 5 mg PO BID #74 ea 09/07/21 a dose pack (Eliquis DVT-PE Treat 30D Start) cephalexin 500 mg capsule 500 mg PO QID 7 Days #28 cap 09/07/21 Allergies Allergy/AdvReac Type Severity Reaction Status Date / Time amlodipine [From [facility]] Allergy Severe due to Verified 09/06/21 17:44 poor renal function ibuprofen Allergy Severe 2/2 renal Verified 09/06/21 17:44 function Review of Systems Review of Systems: Yes all other systems are reviewed and are negative [facility] Past Medical History Medical History Anemia Aphagia Bronchitis Cerebrovascular accident Chronic kidney disease, stage 3 CKD (chronic kidney disease) Constipation Diabetes Diabetes type 2, uncontrolled Encephalopathy Epigastric pain Essential hypertension GERD (gastroesophageal reflux disease) Hearing loss Hemiplegia HTN (hypertension) Hyperlipidemia Hyperlipidemia Hypertensive chronic kidney disease with stage 1 through stage 4 chronic kidney disease, or unspecified chronic kidney disease Hypoglycemia unawareness associated with type 2 diabetes mellitus Postoperative bleeding from incision Preglaucoma Skin cancer Skin lesion Squamous cell carcinoma of skin Stroke Type 2 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 Unsteady gait Vascular device, implant, or graft complication Vitamin D deficiency Vitamin D deficiency Surgical History History of exploratory laparotomy History of surgical removal of skin lesion Family History Family History Father Myocardial infarction Mother Throat cancer Diabetes Family/Other FH: mental illness Brother In good health Sister In good health Sister In good health Daughter In good health Social History Social History 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 Household Members Other:: [facility] Housing: [facility] Do you presently have visiting nurse or other home services: Yes Alcohol intake: never Patient Tobacco Use Status: Former Tobacco user Tobacco use type: Cigarette Cigarette Packs Per Day: 2 Cigarettes Per Day: 40.0 Years Smoked: 16 e-Cigarette/Vaping Use: Former Use Second Hand Smoke Exposure: No Advance Directives: Yes Advance Directives on File: Yes Advance Directives Date on File: 12/02/20 service: No Current occupational status: disabled Physical Exam Vital Signs: Vital Signs: Last Vital Signs Temp 98.0 F 09/07/21 01:31 Pulse 67 09/07/21 01:31 Resp 16 09/07/21 01:31 BP 146/67 H 09/07/21 01:31 Pulse Ox 96 09/07/21 01:31 BMI result Body Mass Index 29.6 Const: General: cooperative and no acute distress Orientation/consciousness: oriented to person and oriented to place Limitations: no limitations HENMT: Head: Yes normal to inspection, Yes normocephalic and Yes atraumatic Ears: external ears normal General nose exam: Normal external nose present Face and sinus: Yes normal facial exam Mouth: Normal oral and palatal mucosa present Throat: Yes posterior oropharynx normal Eyes: General: appearance normal, both eyes and all related structures Pupils: Equal, round and reactive pupils present Neck: Neck: Yes normal visual inspection, Yes no lymphadenopathy, Yes trachea midline and Yes supple Chest: Chest palpation & inspection: normal inspection of the chest and normal palpation of entire chest wall Resp: Effort & Inspection: normal respiratory effort and able to speak in complete sentences Auscultation: clear to auscultation bilaterally Cardio: Rate: regular rate Rhythm: regular rhythm Heart sounds: S1 normal heart sound present, S2 normal heart sound present and no murmurs GI: Inspection: Yes normal to inspection Palpation (GI): Soft to palpation, nontender and no guarding Auscultation: normal bowel sounds : General: Yes no CVA tenderness Back/Spine/Pelvis: Back: no CVA tenderness Skin: General skin exam: no rashes or lesions noted Neuro: General: oriented to person and oriented to place Cranial nerves: Yes CN's II-XII intact bilaterally and Yes Equal, round and reactive pupils present Cognition (Neuro): normal cognition Motor exam (neuro): 5/5 motor strength present throughout Extrem: Other: Patient has erythema with slight increased warmth to the 4th and 5th toes of the right foot, the patient's skin over the dorsal aspect of the 4th, 5th toes and proximal aspect of the 3rd 4th and 5th metatarsals is erythematous with peeling of the superficial skin layer. The right foot does appear to be swollen compared to the left. He also has some slight increased swelling of the right calf compared to the left. General: Yes normal to inspection Psych: Appearance: grossly normal Speech and movement: Normal speech and movement present Affect: normal affect Attitude: cooperative Thought process: Normal thought process present Thought content: Normal thought content present Course Course Course Narrative: 61-year-old male who is brought to emergency department by [facility] staff members for evaluation of swelling of the right foot and right calf compared to the left. patient does complain of pain over the toes of his right foot and has no other complaints. He denied any known injury. The patient's right foot does have erythema to the 4th and 5th toes with erythema over the dorsal aspect of the 3rd 4th and 5th metatarsal area with peeling of the superficial skin layer over this area. There is some slight increased warmth to this erythema as well. Patient's right calf also appears to be swollen. I did order laboratory evaluation as a while as an ultrasound of the right lower extremity. 0105: Laboratory evaluation: CBC revealed mild anemia with an H&H of 11.3 and 34. PT/ INR PTT were normal. BUN and creatinine were elevated at 37 1 point 9 5, this appears to be chronic. X-ray of the foot revealed no evidence of osteomyelitis or fracture. Duplex ultrasound revealed the following: Possible nonocclusive thrombus within the mid/distal superficial femoral vein and popliteal vein. Given this finding, the patient will be treated for DVT. The patient will be started on Eliquis. The patient's erythema is concerning and will also treat him for possible cellulitis with Keflex 500 mg 4 times a day for 7 days. 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 A staff member from the [facility] is here in the emergency department and they requested that I printed up the prescriptions for them so they can bring it to a 24 hour pharmacy. Therefore at I did reprint the prescriptions for cephalexin and for Eliquis. MDM - Extremity (Nontraumatic) Lab Data Result diagrams: 09/06/21 22:00 09/06/21 22:00 Labs: Lab Results 09/06/21 09/06/21 09/06/21 Range/Units 22:00 22:00 22:00 WBC 9.8 (4.8-10.8) X10*3/uL RBC 3.98 L (4.60-5.80) X10*6/uL Hgb 11.3 L (14.0-18.0) g/dl Hct 34.0 L (42.0-52.0) % MCV 85.4 (80.0-98.0) fL MCH 28.4 (27.0-33.0) pg MCHC 33.2 (31.0-36.0) g/dl RDW 13.2 (11.0-16.0) % Plt Count 214 (160-400) X10*3/uL MPV 10.9 (9.4-12.4) fL Immature Gran % (Auto) 0.3 (0.0-0.4) % Neut % (Auto) 55.4 (45-73) % Lymph % (Auto) 32.2 (20-40) % [place] % (Auto) 8.3 (2-11) % Eos % (Auto) 3.4 (0-4) % Baso % (Auto) 0.4 (0-2) % Lymph # (Auto) 3.2 (1.2-4.9) X10*3/uL [place] # (Auto) 0.8 (0.1-1.2) X10*3/uL Eos # (Auto) 0.3 (0.0-0.4) X10*3/uL Baso # (Auto) 0.0 (0.0-0.2) X10*3/uL Abs Immat Gran (auto) 0.03 (0.00-0.03) X10*3/uL Absolute Neuts (auto) 5.4 (2.0-8.3) x10*3/uL Absolute Nucleated RBC 0.000 (0.0-0.012) X10*3/uL Nucleated RBC % (auto) 0.0 (0.0-0.2) /100WBC Sodium 139 (135-145) mmol/L Potassium 4.8 (3.3-5.1) mmol/L Chloride 108 (96-108) mmol/L Carbon Dioxide 24 (22-29) mmol/L Anion Gap 12 (12-20) BUN 37 H (9-16) mg/dL Creatinine 1.95 H (0.5-1.4) mg/dL Estim Creat Clear Calc 44.0 Estimated GFR 35 Random Glucose 279 H D (60-115) mg/dL Lactic Acid 0.8 (0.5-2.0) mmol/L Calcium 9.4 (8.4-10.2) mg/dL Total Bilirubin 0.3 (0.0-1.0) mg/dL AST 8 (5-37) U/L ALT 6 (0-40) U/L Alkaline Phosphatase 86 (39-117) U/L Total Protein 7.2 (6.5-8.0) g/dL Albumin 4.1 (3.5-5.0) g/dL Discharge Plan Discharge Clinical Impression: DVT (deep venous thrombosis) Qualifiers: DVT location: lower extremity Affected thrombotic vein of extremity: popliteal Chronicity: acute Laterality: right Qualified Code(s): I82.431 - Acute embolism and thrombosis of right popliteal vein Cellulitis Qualifiers: Site of cellulitis: extremity Site of cellulitis of extremity: lower extremity Laterality: right Qualified Code(s): L03.115 - Cellulitis of right lower limb Patient Disposition: Home, Self-Care Instructions: Cellulitis (ED), Deep Vein Thrombosis (ED) Additional Instructions: The ultrasound of your right lower extremity revealed possible nonocclusive thrombus within the mid/distal superficial femoral vein and popliteal vein. This finding is concerning and you will need to be treated for blood clots of your leg. I started you on Eliquis 10 mg once a day for 7 days. After 7 days you will need to take 5 mg twice a day for 3-6 months or possibly even longer has determined by your primary care provider. I am also concerned that she might have an infection of your toes given the redness over the toes and bottom part of your foot. Take Keflex (cephalexin) 500 mg pills, 1 pill 4 times a day for 7 days. Restart all of his other outpatient medications today, he does not need to take his nighttime medications. Follow-up with your doctor in 2 days. Please return to the emergency department if your symptoms get worse or if you develop any symptoms that are concerning to you. Prescriptions: New [place] DVT-PE Treat 30D Start 5 mg (74 tabs) tablets,dose pack 5 mg PO BID Qty: 74 RF: 0 cephalexin 500 mg capsule 500 mg PO QID 7 Days Qty: 28 RF: 0 No Action pen needle, diabetic [Easy Touch] 31 gauge x 5/16 needle 1 ea subcut TID 30 Days Qty: 100 RF: 6 blood sugar diagnostic [FreeStyle Lite Strips] Strip 1 strip miscellaneous TID 30 Days Qty: 100 RF: 11 lactulose [Enulose] 10 gram/15 mL solution 30 ml PO DAILY PRN (Reason: constipation) Qty: 473 RF: 3 ursodiol 300 mg capsule 300 mg PO BID Qty: 56 RF: 3 aspirin 81 mg tablet,delayed release (DR/EC) 81 mg PO DAILY Qty: 28 RF: 3 metoprolol succinate 25 mg tablet extended release 24 hr 25 mg PO BEDTIME Qty: 28 RF: 4 ergocalciferol (vitamin D2) [Vitamin D2] 1,250 mcg (50,000 unit) capsule 1,250 mcg PO Q4W Qty: 1 RF: 2 sennosides [senna] 8.6 mg tablet 8.6 mg PO BID 30 Days Qty: 60 RF: 2 polyethylene glycol 3350 17 gram/dose powder 17 g PO BID 30 Days Qty: 1020 RF: 5 (DME) lancets [Pressure Activated Lancets] 28 gauge misc See Rx Instructions .Route Qty: 100 RF: 8 ascorbic acid (vitamin C) 500 mg tablet 500 mg PO DAILY 90 Days Qty: 90 RF: 2 acetaminophen [Tylenol] 325 mg tablet 650 mg PO Q6H PRN (Reason: temp, headache or general discomfort) RF: 0 meclizine 25 mg tablet 25 mg PO Q6H MDD 3 PRN (Reason: Dizziness) RF: 0 guaifenesin 100 mg/5 mL Liquid 300 mg PO Q4H PRN (Reason: Cough) RF: 0 Aspercreme with Aloe 10 % Cream 1 appl TOPICAL TID PRN (Reason: Pain) RF: 0 dextrose [Glutose-45] 40 % gel 15 g PO Q15M MDD 3 RF: 0 Mi-Acid suspension 7.5 ml PO QID PRN (Reason: GERD) RF: 0 alum-mag hydroxide-simeth 400-400-40 mg/5 mL suspension 7.5 ml PO BEDTIME PRN (Reason: indigestion) RF: 0 atorvastatin 80 mg tablet 80 mg PO BEDTIME 90 Days Qty: 90 RF: 3 hydralazine 50 mg tablet 50 mg PO BID 90 Days Qty: 180 RF: 2 nifedipine 30 mg tablet extended release 24hr 30 mg PO DAILY 90 Days Qty: 90 RF: 1 sucralfate 1 gram tablet 1 g PO QID 30 Days Qty: 120 RF: 6 tamsulosin 0.4 mg capsule 0.4 mg PO BEDTIME Qty: 28 RF: 3 Jardiance 10 mg tablet 10 mg PO QAM Qty: 28 RF: 1 (DME) miscellaneous medical supply Misc See Rx Instructions .ROUTE .MEDSUPPLY Qty: 1 RF: 0 risperidone [Risperdal] 0.5 mg tablet 0.5 mg PO BID RF: 0 trazodone 50 mg tablet 25 mg PO BEDTIME RF: 0 hydrocortisone valerate 0.2 % cream 1 applic topical BID PRN (Reason: Itching) RF: 0 lorazepam [Ativan] 0.5 mg tablet 0.5 mg PO DAILY PRN (Reason: Anxiety) RF: 0 losartan 50 mg tablet 75 mg PO DAILY 30 Days Qty: 45 RF: 10 clotrimazole-betamethasone 1-0.05 % cream 1 appl topical BID 10 Days Qty: 15 RF: 0 tramadol 50 mg tablet 50 mg PO BID PRN (Reason: pain) 3 Days Qty: 6 RF: 0 Tresiba FlexTouch U-200 200 unit/mL (3 mL) insulin pen 42 unit subcut DAILY Qty: 9 RF: 4 Trulicity 4.5 mg/0.5 mL pen injector 4.5 mg subcut QWEEK Qty: 2 RF: 6 Interventions: ED Discharge Assessment Last Done: 09/07/21 01:38 Discharge Date/Time: 09/07/21 01:39
[2021-09-06 22:09] LABS: Basophils Percent Auto 0.4 % (0-2); Eosinophils Absolute Auto 0.3 X10*3/uL (0.0-0.4); Eosinophils Percent Auto 3.4 % (0-4); Hemoglobin 11.3 g/dl (14.0-18.0); Imm Gran Abs Auto 0.03 X10*3/uL (0.00-0.03); Imm Gran Pct Auto 0.3 % (0.0-0.4); Lymphocytes Absolute Auto 3.2 X10*3/uL (1.2-4.9); Lymphocytes Percent Auto 32.2 % (20-40); MANUAL DIFF FLAG NO; Mean Corpuscular HGB Conc 33.2 g/dl (31.0-36.0); Mean Corpuscular Hemoglobin 28.4 pg (27.0-33.0); Mean Corpuscular Volume 85.4 fL (80.0-98.0); Mean Platelet Volume 10.9 fL (9.4-12.4); Monocytes Absolute Auto 0.8 X10*3/uL (0.1-1.2); Monocytes Percent Auto 8.3 % (2-11); Neutrophils Absolute Auto 5.4 x10*3/uL (2.0-8.3); Neutrophils Percent Auto 55.4 % (45-73); Platelet Count 214 X10*3/uL (160-400); Red Blood Count 3.98 X10*6/uL (4.60-5.80); Red Cell Distribution Width 13.2 % (11.0-16.0); White Blood Count 9.8 X10*3/uL (4.8-10.8)
[2021-09-06 22:19] LABS: Lactic Acid 0.8 mmol/L (0.5-2.0)
[2021-09-06 22:25] LABS: Alanine Aminotransferase 6 U/L (0-40); Albumin Level 4.1 g/dL (3.5-5.0); Alkaline Phosphatase 86 U/L (39-117); Anion Gap 12 (12-20); Aspartate Amino Transferase 8 U/L (5-37); Bilirubin Total 0.3 mg/dL (0.0-1.0); Blood Urea Nitrogen 37 mg/dL (9-16); Calcium 9.4 mg/dL (8.4-10.2); Carbon Dioxide 24 mmol/L (22-29); Chloride 108 mmol/L (96-108); Estimated Glomerular Filt Rate 35; Glucose Random 279 mg/dL (60-115); Potassium 4.8 mmol/L (3.3-5.1); Sodium 139 mmol/L (135-145); Total Protein 7.2 g/dL (6.5-8.0)
[2021-09-07] MEDS: cephALEXin 500 MG CAPSULE PO (01:23)
[2021-09-07] MEDS: Apixaban 5 MG TABLET 10 MG PO (01:23)
[2021-09-07 01:31] VITALS: BP 146/67; PULSE 67; RESP 16; TEMP 36.7; O2SAT 96
== END 2021-09-07 01:39 | disposition home or self-care (01) ==
PROVIDERS: Emergency Provider Emergency Medicine Emergency Medical Services; PCP Hospitalist
DX: I82.431 Acute embolism and thrombosis of right popliteal vein (principal); L03.115 Cellulitis of right lower limb; M79.661 Pain in right lower leg; M79.89 Other specified soft tissue disorders; E11.22 Type 2 diabetes mellitus with diabetic chronic kidney disease; I12.9 Hypertensive chronic kidney disease with stage 1 through stage 4 chronic kidney disease, or unspecified chronic kidney disease; N18.30 Chronic kidney disease, stage 3 unspecified; Z79.4 Long term (current) use of insulin; Z86.73 Personal history of transient ischemic attack (TIA), and cerebral infarction without residual deficits
CPT/HCPCS: 36415; 73620; 80053; 83605; 85025; 87040; 93971; 99284

== ENCOUNTER 2021-10-02 22:20 | Emergency (ER) | payer MEDICAID, SELFPAY ==
[2021-10-02 22:34] VITALS: BP 128/74; PULSE 72; RESP 20; TEMP 37.2; O2SAT 99; BMI 33.1
--- NOTE | 2021-10-02 23:11 | ED_ITS ---
HPI - URI/Sore Throat General Chief Complaint: Upper Respiratory Symptoms Stated Complaint: +covid with symptoms (from snf) Time Seen by Provider: 10/02/21 22:39 Source: patient Mode of arrival: EMS Limitations: language barrier (Turkish speaking only, site interpreter used.) History of Present Illness HPI Narrative: 61-year-old male who was sent to the emergency department from his residential for evaluation upper respiratory infection and he tested positive for COVID-19 today. The patient states his blood pressures been high. He states that his whole body aches. He feels short of breath at rest. The pa shana does not walk secondary to 2 strokes. States he has had fever as high as 101? F. he states he has had a cough which is nonproductive. Patient did receive a 2 shot vaccine for COVID-19, he does not know in a 2nd shot was given. Related Data Home Medications Medication Instructions Recorded Confirmed hydrocortisone valerate 0.2 % 1 applic TOPICAL BID PRN 07/24/20 09/15/21 topical cream lorazepam 0.5 mg tablet (Ativan) 0.5 mg PO DAILY PRN 07/24/20 09/15/21 risperidone 0.5 mg tablet 0.5 mg PO BID 07/24/20 09/15/21 (Risperdal) trazodone 50 mg tablet 25 mg PO BEDTIME 07/24/20 09/15/21 acetaminophen 325 mg tablet 650 mg PO Q6H PRN 12/25/20 09/15/21 (Tylenol) guaifenesin 100 mg/5 mL oral liquid 300 mg PO Q4H PRN 12/25/20 09/15/21 meclizine 25 mg tablet 25 mg PO Q6H PRN MDD 3 12/25/20 09/15/21 trolamine salicylate-aloe vera 10 1 appl TOPICAL TID PRN 12/25/20 09/15/21 % topical cream (Aspercreme with Aloe) Mi-Acid 7.5 ml PO QID PRN 04/28/21 09/15/21 aluminum-mag hydroxide-simethicone 7.5 ml PO BEDTIME PRN 04/28/21 09/15/21 400 mg-400 mg-40 mg/5 mL oral susp Previous Rx's Medication Instructions Recorded pen needle, diabetic 31 gauge x 1 ea SUBCUT TID 30 Days #100 ea 10/03/20 5/16 (Easy Touch) blood sugar diagnostic (FreeStyle 1 strip MISCELLANEOUS TID 30 Days 10/18/20 Lite Strips) #100 ea lactulose 10 gram/15 mL oral 30 ml PO DAILY PRN #473 ml 01/15/21 solution (Enulose) ursodiol 300 mg capsule 300 mg PO BID #56 cap 05/03/21 aspirin 81 mg tablet,delayed 81 mg PO DAILY #28 tab 05/06/21 release metoprolol succinate 25 mg 25 mg PO BEDTIME #28 tab 05/11/21 tablet,extended release 24 hr losartan 50 mg tablet 75 mg PO DAILY 30 Days #45 tab 05/14/21 atorvastatin 80 mg tablet 80 mg PO BEDTIME 90 Days #90 tab 05/30/21 hydralazine 50 mg tablet 50 mg PO BID 90 Days #180 tab 05/30/21 nifedipine 30 mg tablet,extended 30 mg PO DAILY 90 Days #90 tab 05/30/21 release 24 hr sucralfate 1 gram tablet 1 g PO QID 30 Days #120 tab 05/30/21 tamsulosin 0.4 mg capsule 0.4 mg PO BEDTIME #28 cap 05/30/21 ergocalciferol (vitamin D2) 1,250 1,250 mcg PO Q4W #1 cap 06/04/21 mcg (50,000 unit) capsule (Vitamin D2) clotrimazole-betamethasone 1 1 appl TOPICAL BID 10 Days #15 g 06/12/21 %-0.05 % topical cream tramadol 50 mg tablet 50 mg PO BID PRN 3 Days #6 tab 06/12/21 sennosides 8.6 mg tablet (senna) 8.6 mg PO BID 30 Days #60 tab 06/17/21 miscellaneous medical supply #1 ea 07/11/21 polyethylene glycol 3350 17 17 g PO BID 30 Days #1020 g 07/16/21 gram/dose oral powder lancets 28 gauge (Pressure #100 ea 09/01/21 Activated Lancets) dulaglutide 4.5 mg/0.5 mL 4.5 mg (0.5 mL) SUBCUT QWEEK #2 ml 09/02/21 subcutaneous pen injector (Trulicity) insulin degludec 200 unit/mL (3 42 unit (0.21 mL) SUBCUT DAILY #9 09/02/21 mL) subcutaneous pen (Tresiba ml FlexTouch U-200 insulin) apixaban 5 mg (74 tabs) tablets in 5 mg PO BID 90 Days #180 ea 09/08/21 a dose pack (Eliquis DVT-PE Treat 30D Start) fluoxetine 10 mg capsule 10 mg PO DAILY #30 cap 09/15/21 empagliflozin 10 mg tablet 10 mg PO QAM #28 tab 09/19/21 (Jardiance) ascorbic acid (vitamin C) 500 mg 500 mg PO BID 90 Days #180 tab 09/25/21 tablet dextrose 40 % oral gel (Glutose-45) 15 g PO Q15M PRN #112.5 g MDD 3 09/25/21 Allergies Allergy/AdvReac Type Severity Reaction Status Date / Time amlodipine [From [facility]] Allergy Severe due to Verified 09/15/21 12:38 poor renal function ibuprofen Allergy Severe 2/2 renal Verified 09/15/21 12:38 function Review of Systems Review of Systems: Yes all other systems are reviewed and are negative [facility] Past Medical History Medical History Anemia Aphagia Bronchitis Cerebrovascular accident Chronic kidney disease, stage 3 CKD (chronic kidney disease) Constipation Diabetes Diabetes type 2, uncontrolled Encephalopathy Epigastric pain Essential hypertension GERD (gastroesophageal reflux disease) Hearing loss Hemiplegia HTN (hypertension) Hyperlipidemia Hyperlipidemia Hypertensive chronic kidney disease with stage 1 through stage 4 chronic kidney disease, or unspecified chronic kidney disease Hypoglycemia unawareness associated with type 2 diabetes mellitus Postoperative bleeding from incision Preglaucoma Skin cancer Skin lesion Squamous cell carcinoma of skin Stroke Type 2 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 Unsteady gait Vascular device, implant, or graft complication Vitamin D deficiency Vitamin D deficiency Surgical History History of exploratory laparotomy History of surgical removal of skin lesion Family History Family History Father Myocardial infarction Mother Throat cancer Diabetes Family/Other FH: mental illness Brother In good health Sister In good health Sister In good health Daughter In good health Social History Social History 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 Household Members Other:: residential Housing: [facility] Do you presently have visiting nurse or other home services: Yes Alcohol intake: never Patient Tobacco Use Status: Former Tobacco user Tobacco use type: Cigarette Cigarette Packs Per Day: 2 Cigarettes Per Day: 40.0 Years Smoked: 16 e-Cigarette/Vaping Use: Former Use Second Hand Smoke Exposure: No Advance Directives: No Advance Directives on File: No Advance Directives Date on File: 12/02/20 service: No Current occupational status: disabled Physical Exam Vital Signs: Vital Signs: Last Vital Signs Temp 99 F 10/02/21 22:34 Pulse 72 10/02/21 22:34 Resp 20 10/02/21 22:34 BP 128/74 10/02/21 22:34 Pulse Ox 99 10/02/21 22:34 BMI result Body Mass Index 33.1 Const: General: cooperative, no acute distress, well developed, alert and awake Orientation/consciousness: oriented to person HENMT: Head: Yes normal to inspection, Yes normocephalic and Yes atraumatic Ears: hearing grossly normal bilaterally General nose exam: Normal external nose present Face and sinus: Yes normal facial exam Mouth: Normal oral and palatal mucosa present, lip normal, tongue normal, oropharynx normal and moist mucous membranes Throat: Yes posterior oropharynx normal, Yes tonsils normal and Yes uvula midline Eyes: General: appearance normal, both eyes and all related structures Eyelids: Yes eyelids normal Conjunctivae: conjunctivae normal Sclerae: sclerae normal Corneas: corneas normal Pupils: Equal, round and reactive pupils present Neck: Neck: Yes normal visual inspection, Yes no lymphadenopathy, Yes trachea midline and Yes supple Thyroid: Thyroid normal Lymphatic: no lymphadenopathy noted Chest: Chest palpation & inspection: normal inspection of the chest and normal palpation of entire chest wall Resp: Effort & Inspection: normal respiratory effort and able to speak in complete sentences Auscultation: clear to auscultation bilaterally Cardio: Rate: regular rate Rhythm: regular rhythm Heart sounds: S1 normal heart sound present, S2 normal heart sound present and no murmurs GI: Inspection: Yes normal to inspection Palpation (GI): Soft to palpation, nontender and No hepatosplenomegaly present Auscultation: normal bowel sounds : General: Yes no CVA tenderness Back/Spine/Pelvis: Back: no CVA tenderness Thoracic/Lumbar Spine: thoracic and lumbar spine normal to inspection Skin: General skin exam: no rashes or lesions noted, no erythema and no jaundice Lesions: no lesions Rashes: no rashes Trauma: no lacerations or abrasions Wounds: no wounds Neuro: General: oriented to person Cranial nerves: Yes Equal, round and reactive pupils present Cognition (Neuro): normal cognition Motor exam (neuro): Motor abnormalities not present Extrem: General: Yes normal to inspection, Yes no pedal edema and Yes no calf tenderness Right upper extremity: normal to inspection Left upper extremity: normal to inspection Right lower extremity: normal to inspection Left lower extremity: normal to inspection Psych: Appearance: grossly normal Mental Status: mental status grossly normal Speech and movement: Normal speech and movement present Affect: normal affect Attitude: cooperative Thought process: Normal thought process present Insight: Good insight present (Psych) Course Course Course Narrative: 61-year-old male who presents emergency department for evaluation of 2 days of acute viral-like illness who tested COVID positive today. Patient's vital signs were normal with an O2 saturation of 99% on room air. At this time, I do not think that the patient has COVID-19 pneumonia. The patient was advised to take Tylenol for his pain. I do believe that the patient would benefit from a referral to the [facility] monoclonal antibody clinic. Patient will be discharged back to his residential/ facility. Discharge Plan Discharge Clinical Impression: COVID-19 virus infection Patient Disposition: Home, Self-Care Instructions: COVID-19 (Coronavirus Disease 2019) (ED) Additional Instructions: Your vital signs in the emergency department were normal with a blood pressure of 128/74, pulse of 72, respiratory of 20, temperature of 99? F and O2 saturation of 99%. At this time, you do not have any evidence of low oxygen (hypoxia) or pneumonia. Take Tylenol (acetaminophen) 500 mg pills, 2 pills every 4 to 6 hours as needed for pain. Given your medical problems, I believe that he would benefit from getting COVID- 19 monoclonal antibody therapy. I emailed the referral form to the [facility] COVID-19 infusion clinic. They should contact you in 1-2 days to set up an appointment however please call the number at the bottom of the page to make sure that they got your information in are trying to schedule you for an appointment. Follow-up with your doctor in 2 days. Please return to the emergency department if your symptoms get worse or if you develop any symptoms that are concerning to you. Prescriptions: No Action pen needle, diabetic [Easy Touch] 31 gauge x 5/16 needle 1 ea subcut TID 30 Days Qty: 100 RF: 6 blood sugar diagnostic [FreeStyle Lite Strips] Strip 1 strip miscellaneous TID 30 Days Qty: 100 RF: 11 lactulose [Enulose] 10 gram/15 mL solution 30 ml PO DAILY PRN (Reason: constipation) Qty: 473 RF: 3 ursodiol 300 mg capsule 300 mg PO BID Qty: 56 RF: 3 aspirin 81 mg tablet,delayed release (DR/EC) 81 mg PO DAILY Qty: 28 RF: 3 metoprolol succinate 25 mg tablet extended release 24 hr 25 mg PO BEDTIME Qty: 28 RF: 4 ergocalciferol (vitamin D2) [Vitamin D2] 1,250 mcg (50,000 unit) capsule 1,250 mcg PO Q4W Qty: 1 RF: 2 sennosides [senna] 8.6 mg tablet 8.6 mg PO BID 30 Days Qty: 60 RF: 2 polyethylene glycol 3350 17 gram/dose powder 17 g PO BID 30 Days Qty: 1020 RF: 5 (DME) lancets [Pressure Activated Lancets] 28 gauge misc See Rx Instructions .Route Qty: 100 RF: 8 Jardiance 10 mg tablet 10 mg PO QAM Qty: 28 RF: 6 ascorbic acid (vitamin C) 500 mg tablet 500 mg PO BID 90 Days Qty: 180 RF: 2 dextrose [Glutose-45] 40 % gel 15 g PO Q15M MDD 3 PRN (Reason: hypoglycemia) Qty: 112.5 RF: 3 acetaminophen [Tylenol] 325 mg tablet 650 mg PO Q6H PRN (Reason: temp, headache or general discomfort) RF: 0 meclizine 25 mg tablet 25 mg PO Q6H MDD 3 PRN (Reason: Dizziness) RF: 0 guaifenesin 100 mg/5 mL Liquid 300 mg PO Q4H PRN (Reason: Cough) RF: 0 Aspercreme with Aloe 10 % Cream 1 appl TOPICAL TID PRN (Reason: Pain) RF: 0 Mi-Acid suspension 7.5 ml PO QID PRN (Reason: GERD) RF: 0 alum-mag hydroxide-simeth 400-400-40 mg/5 mL suspension 7.5 ml PO BEDTIME PRN (Reason: indigestion) RF: 0 atorvastatin 80 mg tablet 80 mg PO BEDTIME 90 Days Qty: 90 RF: 3 hydralazine 50 mg tablet 50 mg PO BID 90 Days Qty: 180 RF: 2 nifedipine 30 mg tablet extended release 24hr 30 mg PO DAILY 90 Days Qty: 90 RF: 1 sucralfate 1 gram tablet 1 g PO QID 30 Days Qty: 120 RF: 6 tamsulosin 0.4 mg capsule 0.4 mg PO BEDTIME Qty: 28 RF: 3 (DME) miscellaneous medical supply Misc See Rx Instructions .ROUTE .MEDSUPPLY Qty: 1 RF: 0 risperidone [Risperdal] 0.5 mg tablet 0.5 mg PO BID RF: 0 trazodone 50 mg tablet 25 mg PO BEDTIME RF: 0 hydrocortisone valerate 0.2 % cream 1 applic topical BID PRN (Reason: Itching) RF: 0 lorazepam [Ativan] 0.5 mg tablet 0.5 mg PO DAILY PRN (Reason: Anxiety) RF: 0 losartan 50 mg tablet 75 mg PO DAILY 30 Days Qty: 45 RF: 10 clotrimazole-betamethasone 1-0.05 % cream 1 appl topical BID 10 Days Qty: 15 RF: 0 tramadol 50 mg tablet 50 mg PO BID PRN (Reason: pain) 3 Days Qty: 6 RF: 0 Eliquis DVT-PE Treat 30D Start 5 mg (74 tabs) tablets,dose pack 5 mg PO BID 90 Days Qty: 180 RF: 3 fluoxetine 10 mg capsule 10 mg PO DAILY Qty: 30 RF: 0 Tresiba FlexTouch U-200 200 unit/mL (3 mL) insulin pen 42 unit subcut DAILY Qty: 9 RF: 4 Trulicity 4.5 mg/0.5 mL pen injector 4.5 mg subcut QWEEK Qty: 2 RF: 6
== END 2021-10-03 00:24 | disposition home or self-care (01) ==
PROVIDERS: Emergency Provider Emergency Medicine Emergency Medical Services
DX: U07.1 COVID-19 (principal); Z79.899 Other long term (current) drug therapy; Z87.891 Personal history of nicotine dependence
CPT/HCPCS: 99283

== ENCOUNTER 2021-10-16 15:27 | Outpatient (REF) | payer MEDICAID, SELFPAY ==
[2021-10-16 16:18] LABS: Estimated Average Glucose 177 mg/dL; Hemoglobin A1c % 7.8 %
== END 2021-10-16 15:28 | disposition home or self-care (01) ==
LOC: HO.LAB 15:27
PROVIDERS: PCP Hospitalist; Visit Provider Hospitalist
DX: E11.42 Type 2 diabetes mellitus with diabetic polyneuropathy (principal)
CPT/HCPCS: 36415; 83036

== ENCOUNTER 2021-11-29 08:29 | Outpatient (REF) | payer MEDICAID, SELFPAY ==
--- NOTE | ~2021-11-29 | XR_ITS ---
EXAMINATION: X-RAY THORACIC SPINE X-RAY LUMBAR SPINE CLINICAL INFORMATION: Dorsalgia COMPARISON: CT abdomen 07/28/2020 TECHNIQUE: Lumbar spine 3 views. Thoracic spine 4 views FINDINGS: Thoracic spine: On the lateral projection, there is normal alignment. Vertebral body heights are maintained. No evidence of acute compression fracture. Multilevel mild facet degeneration. Visualized lungs are clear. Lumbar spine: The posterior alignment is maintained. Vertebral body heights are maintained. No evidence of acute fracture. Mild lumbar spondylosis. Multilevel mild facet degeneration. IVC filter present. There are radiodense coils projected over the upper abdomen. XR/XR thoracic spine 2V IMPRESSION: No evidence of acute osseous abnormality. Mild thoracic spine degeneration. Mild lumbar spine degeneration.
--- NOTE | ~2021-11-29 | XR_ITS ---
EXAMINATION: XR CHEST CLINICAL INFORMATION: Dorsalgia COMPARISON: Chest x-ray 04/27/2021 TECHNIQUE: 2 views of the chest were obtained. FINDINGS: No significant abnormality is noted involving the heart, lungs, mediastinum. Mild thoracic spine degeneration. XR/XR chest 2V IMPRESSION: No acute findings seen.
--- NOTE | ~2021-11-29 | XR_ITS ---
EXAMINATION: X-RAY THORACIC SPINE X-RAY LUMBAR SPINE CLINICAL INFORMATION: Dorsalgia COMPARISON: CT abdomen 07/28/2020 TECHNIQUE: Lumbar spine 3 views. Thoracic spine 4 views FINDINGS: Thoracic spine: On the lateral projection, there is normal alignment. Vertebral body heights are maintained. No evidence of acute compression fracture. Multilevel mild facet degeneration. Visualized lungs are clear. Lumbar spine: The posterior alignment is maintained. Vertebral body heights are maintained. No evidence of acute fracture. Mild lumbar spondylosis. Multilevel mild facet degeneration. IVC filter present. There are radiodense coils projected over the upper abdomen. XR/XR lumbar spine 2-3V IMPRESSION: No evidence of acute osseous abnormality. Mild thoracic spine degeneration. Mild lumbar spine degeneration.
[2021-11-29 08:39] LABS: MANUAL DIFF FLAG NO
[2021-11-29 09:28] LABS: Appearance Urine CLEAR; Color Urine YELLOW; Glucose Urine UA 500 MG/DL (NEG); Leukocyte Esterase Urine NEG (NEG); Nitrite Urine NEG (NEG); PH 5.5 (5.0-8.0); Specific Gravity - Urine 1.015 (1.005-1.025); Urine Blood NEG (NEG); Urine Ketones NEG (NEG); Urine Protein TRACE MG/DL (NEG-TRACE)
[2021-11-29 09:29] LABS: Basophils Percent Auto 0.4 % (0-2); Eosinophils Absolute Auto 0.4 X10*3/uL (0.0-0.4); Eosinophils Percent Auto 4.2 % (0-4); Hematocrit 38.4 % (42.0-52.0); Hemoglobin 12.3 g/dl (14.0-18.0); Imm Gran Abs Auto 0.03 X10*3/uL (0.00-0.03); Imm Gran Pct Auto 0.3 % (0.0-0.4); Lymphocytes Absolute Auto 2.7 X10*3/uL (1.2-4.9); Lymphocytes Percent Auto 27.1 % (20-40); Mean Corpuscular Hemoglobin 27.6 pg (27.0-33.0); Mean Corpuscular Volume 86.3 fL (80.0-98.0); Mean Platelet Volume 10.8 fL (9.4-12.4); Monocytes Absolute Auto 0.7 X10*3/uL (0.1-1.2); Monocytes Percent Auto 6.5 % (2-11); Neutrophils Absolute Auto 6.2 x10*3/uL (2.0-8.3); Neutrophils Percent Auto 61.5 % (45-73); Platelet Count 263 X10*3/uL (160-400); Red Blood Count 4.45 X10*6/uL (4.60-5.80); Red Cell Distribution Width 13.4 % (11.0-16.0); White Blood Count 10.1 X10*3/uL (4.8-10.8)
[2021-11-29 09:36] LABS: D Dimer High Sensitivity < 150 NG/ML
[2021-11-29 09:43] LABS: Alanine Aminotransferase 6 U/L (0-40); Albumin Level 4.5 g/dL (3.5-5.0); Alkaline Phosphatase 83 U/L (39-117); Anion Gap 14 (12-20); Aspartate Amino Transferase 10 U/L (5-37); Bilirubin Total 0.6 mg/dL (0.0-1.0); Blood Urea Nitrogen 38 mg/dL (9-16); Calcium 10.2 mg/dL (8.4-10.2); Carbon Dioxide 26 mmol/L (22-29); Chloride 106 mmol/L (96-108); Estimated Glomerular Filt Rate 36; Glucose Random 126 mg/dL (60-115); Potassium 4.9 mmol/L (3.3-5.1); Sodium 141 mmol/L (135-145)
[2021-11-29 10:14] LABS: Erythrocyte Sedimentation Rate 34 MM/HR (0-15)
== END 2021-11-29 08:30 | disposition home or self-care (01) ==
LOC: HO.LAB 08:29
PROVIDERS: PCP Family Medicine; Visit Provider Family Medicine
DX: Z00.00 Encounter for general adult medical examination without abnormal findings (principal); M54.9 Dorsalgia, unspecified; R10.9 Unspecified abdominal pain; R06.00 Dyspnea, unspecified
CPT/HCPCS: 36415; 71046; 72070; 72100; 80053; 81003; 85025; 85379; 85652

== ENCOUNTER → 2021-12-11 09:08 | Outpatient (BNVA) | payer MEDICAID, SELFPAY | PROVIDERS: PCP Family Medicine; Visit Provider Nurse Practitioner Gerontology | DX: E11.649 Type 2 diabetes mellitus with hypoglycemia without coma (principal); I12.9 Hypertensive chronic kidney disease with stage 1 through stage 4 chronic kidney disease, or unspecified chronic kidney disease; E11.22 Type 2 diabetes mellitus with diabetic chronic kidney disease; N18.30 Chronic kidney disease, stage 3 unspecified; E11.42 Type 2 diabetes mellitus with diabetic polyneuropathy; E78.5 Hyperlipidemia, unspecified; E55.9 Vitamin D deficiency, unspecified; Z79.4 Long term (current) use of insulin | CPT/HCPCS: 82947; 99212 ==

== ENCOUNTER → 2022-01-08 11:27 | Outpatient (BNVA) | payer MEDICAID, SELFPAY | PROVIDERS: PCP Hospitalist; Referring Provider Hospitalist; Visit Provider Surgery | DX: L98.9 Disorder of the skin and subcutaneous tissue, unspecified (principal) | CPT/HCPCS: 99202 ==

== ENCOUNTER 2022-01-19 11:13 | Outpatient (REF) | payer MEDICAID, SELFPAY ==
[2022-01-19 11:57] LABS: Influenza A PCR POSITIVE (Negative); Influenza B PCR NEGATIVE (Negative); Resp Syncy Virus RNA Qual PCR NEGATIVE (Negative); SARS COV2 PCR INHOUSE NEGATIVE (Negative)
== END 2022-01-19 11:14 | disposition home or self-care (01) ==
LOC: HO.LNP 11:13
PROVIDERS: Visit Provider Hospitalist
DX: Z20.822 Contact with and (suspected) exposure to COVID-19 (principal); B34.9 Viral infection, unspecified
CPT/HCPCS: 0241U

== ENCOUNTER 2022-02-09 12:46 | Outpatient (REF) | payer MEDICAID, SELFPAY | END 2022-02-09 12:47 | disposition home or self-care (01) | LOC: HO.LAB 12:46 | PROVIDERS: PCP Hospitalist; Visit Provider Surgery | DX: L98.9 Disorder of the skin and subcutaneous tissue, unspecified (principal) | CPT/HCPCS: 11402; 88304; 88305 ==

== ENCOUNTER → 2022-02-12 13:04 | Outpatient (BNVA) | payer MEDICAID, SELFPAY | PROVIDERS: PCP Hospitalist; Referring Provider Hospitalist; Visit Provider Nurse Practitioner Family | DX: R07.9 Chest pain, unspecified (principal); I10 Essential (primary) hypertension; E78.5 Hyperlipidemia, unspecified; E11.649 Type 2 diabetes mellitus with hypoglycemia without coma | CPT/HCPCS: 93005; 99212 ==

== ENCOUNTER → 2022-02-25 09:45 | Outpatient (BNVA) | payer MEDICAID, SELFPAY | PROVIDERS: PCP Hospitalist; Visit Provider Surgery | DX: Z09 Encounter for follow-up examination after completed treatment for conditions other than malignant neoplasm (principal); L98.8 Other specified disorders of the skin and subcutaneous tissue | CPT/HCPCS: 99212 ==

== ENCOUNTER 2022-04-22 14:48 | Outpatient (REF) | payer MEDICAID, SELFPAY ==
[2022-04-22 15:01] LABS: MANUAL DIFF FLAG NO
[2022-04-22 16:01] LABS: Basophils Absolute Auto 0.1 X10*3/uL (0.0-0.2); Basophils Percent Auto 0.5 % (0-2); Eosinophils Absolute Auto 0.3 X10*3/uL (0.0-0.4); Eosinophils Percent Auto 2.7 % (0-4); Hematocrit 32.9 % (42.0-52.0); Imm Gran Abs Auto 0.04 X10*3/uL (0.00-0.03); Imm Gran Pct Auto 0.4 % (0.0-0.4); Lymphocytes Absolute Auto 3.1 X10*3/uL (1.2-4.9); Lymphocytes Percent Auto 29.9 % (20-40); Mean Corpuscular HGB Conc 33.4 g/dl (31.0-36.0); Mean Corpuscular Hemoglobin 28.4 pg (27.0-33.0); Mean Corpuscular Volume 84.8 fL (80.0-98.0); Mean Platelet Volume 11.3 fL (9.4-12.4); Monocytes Absolute Auto 0.8 X10*3/uL (0.1-1.2); Monocytes Percent Auto 7.7 % (2-11); Neutrophils Absolute Auto 6.1 x10*3/uL (2.0-8.3); Neutrophils Percent Auto 58.8 % (45-73); Platelet Count 234 X10*3/uL (160-400); Red Blood Count 3.88 X10*6/uL (4.60-5.80); Red Cell Distribution Width 13.5 % (11.0-16.0); White Blood Count 10.4 X10*3/uL (4.8-10.8)
[2022-04-22 16:20] LABS: Anion Gap 14 (12-20); Blood Urea Nitrogen 34 mg/dL (9-16); Calcium 8.9 mg/dL (8.4-10.2); Carbon Dioxide 22 mmol/L (22-29); Chloride 105 mmol/L (96-108); Estimated Glomerular Filt Rate 35; Glucose Random 245 mg/dL (60-115); Potassium 5.1 mmol/L (3.3-5.1); Sodium 136 mmol/L (135-145)
[2022-04-22 16:34] LABS: Erythrocyte Sedimentation Rate 26 MM/HR (0-15)
[2022-04-25 21:33] LABS: CRP High Sensitivity 2.7 mg/L
== END 2022-04-22 14:49 | disposition home or self-care (01) ==
LOC: HO.LAB 14:48
PROVIDERS: Family Medicine; PCP Hospitalist; Visit Provider Internal Medicine Hypertension Specialist
DX: M54.9 Dorsalgia, unspecified (principal); N18.31 Chronic kidney disease, stage 3a
CPT/HCPCS: 36415; 80048; 85025; 85652; 86141

== ENCOUNTER 2022-05-29 12:53 | Outpatient (REF) | payer MEDICAID, SELFPAY ==
[2022-05-29 13:47] LABS: Estimated Average Glucose 200 mg/dL; Hemoglobin A1c % 8.6 %
== END 2022-05-29 12:54 | disposition home or self-care (01) ==
LOC: HO.LAB 12:53
PROVIDERS: PCP Hospitalist; Visit Provider Hospitalist
DX: E11.22 Type 2 diabetes mellitus with diabetic chronic kidney disease (principal); N18.30 Chronic kidney disease, stage 3 unspecified; Z79.4 Long term (current) use of insulin
CPT/HCPCS: 36415; 83036

== ENCOUNTER 2022-08-14 12:15 | Outpatient (REF) | payer MEDICAID, SELFPAY ==
[2022-08-21 15:11] LABS: Vitamin D 25-OH, D2 19 ng/mL; Vitamin D 25-OH, D3 22 ng/mL; Vitamin D 25-OH, Total 41 ng/mL (30-100)
== END 2022-08-14 12:16 | disposition home or self-care (01) ==
LOC: HO.WFDLDS 12:15
PROVIDERS: Visit Provider Hospitalist
DX: E55.9 Vitamin D deficiency, unspecified (principal)
CPT/HCPCS: 36415; 82306

== ENCOUNTER 2022-10-15 08:32 | Outpatient (REF) | payer MEDICAID, SELFPAY ==
[2022-10-15 09:54] LABS: Hematocrit 38.2 % (42.0-52.0); Hemoglobin 12.2 g/dl (14.0-18.0); Mean Corpuscular HGB Conc 31.9 g/dl (31.0-36.0); Mean Corpuscular Hemoglobin 27.9 pg (27.0-33.0); Mean Corpuscular Volume 87.4 fL (80.0-98.0); Mean Platelet Volume 11.1 fL (9.4-12.4); Platelet Count 226 X10*3/uL (160-400); Red Blood Count 4.37 X10*6/uL (4.60-5.80); Red Cell Distribution Width 12.8 % (11.0-16.0); White Blood Count 8.9 X10*3/uL (4.8-10.8)
[2022-10-15 11:42] LABS: Anion Gap 13 (12-20); Blood Urea Nitrogen 29 mg/dL (9-16); Calcium 9.3 mg/dL (8.4-10.2); Carbon Dioxide 26 mmol/L (22-29); Chloride 104 mmol/L (96-108); Estimated Glomerular Filt Rate 33; Glucose Random 227 mg/dL (60-115); Sodium 138 mmol/L (135-145)
[2022-10-16 16:44] LABS: Calcium (PTHI) 9.3 mg/dL (8.6-10.3); PTHI 72 pg/mL (16-77)
== END 2022-10-15 08:33 | disposition home or self-care (01) ==
LOC: HO.LAB 08:32
PROVIDERS: PCP Hospitalist; Visit Provider Internal Medicine Hypertension Specialist
DX: N18.31 Chronic kidney disease, stage 3a (principal)
CPT/HCPCS: 36415; 80048; 83970; 85027

== ENCOUNTER 2022-12-04 17:15 | Outpatient (REF) | payer MEDICAID, SELFPAY ==
[2022-12-04 18:07] LABS: Influenza A PCR NEGATIVE (Negative); Influenza B PCR NEGATIVE (Negative); Resp Syncy Virus RNA Qual PCR NEGATIVE (Negative); SARS COV2 PCR INHOUSE NEGATIVE (Negative)
== END 2022-12-04 17:16 | disposition home or self-care (01) ==
LOC: HO.HMGCLNP 17:15
PROVIDERS: Visit Provider Physician Assistant
DX: Z20.822 Contact with and (suspected) exposure to COVID-19 (principal)
CPT/HCPCS: 0241U

== ENCOUNTER → 2022-12-28 16:01 | Outpatient (BNVA) | payer MEDICAID, SELFPAY | PROVIDERS: PCP Hospitalist; Referring Provider Hospitalist; Visit Provider Internal Medicine Cardiovascular Disease | DX: I10 Essential (primary) hypertension (principal); R07.9 Chest pain, unspecified | CPT/HCPCS: 99212 ==

== ENCOUNTER 2023-04-19 07:07 | Outpatient (REF) | payer MEDICAID, SELFPAY ==
[2023-04-19 07:29] LABS: MANUAL DIFF FLAG NO
[2023-04-19 08:15] LABS: Basophils Absolute Auto 0.1 X10*3/uL (0.0-0.2); Basophils Percent Auto 0.6 % (0-2); Eosinophils Absolute Auto 0.2 X10*3/uL (0.0-0.4); Eosinophils Percent Auto 2.5 % (0-4); Hematocrit 40.5 % (42.0-52.0); Hemoglobin 13.1 g/dl (14.0-18.0); Imm Gran Abs Auto 0.04 X10*3/uL (0.00-0.03); Imm Gran Pct Auto 0.4 % (0.0-0.4); Lymphocytes Absolute Auto 2.6 X10*3/uL (1.2-4.9); Lymphocytes Percent Auto 26.6 % (20-40); Mean Corpuscular HGB Conc 32.3 g/dl (31.0-36.0); Mean Corpuscular Hemoglobin 28.4 pg (27.0-33.0); Mean Corpuscular Volume 87.9 fL (80.0-98.0); Mean Platelet Volume 10.7 fL (9.4-12.4); Monocytes Absolute Auto 0.8 X10*3/uL (0.1-1.2); Monocytes Percent Auto 8.4 % (2-11); Neutrophils Absolute Auto 5.9 x10*3/uL (2.0-8.3); Neutrophils Percent Auto 61.5 % (45-73); Platelet Count 268 X10*3/uL (160-400); Red Blood Count 4.61 X10*6/uL (4.60-5.80); Red Cell Distribution Width 12.9 % (11.0-16.0); White Blood Count 9.7 X10*3/uL (4.8-10.8)
[2023-04-19 11:55] LABS: Anion Gap 16 (12-20); Blood Urea Nitrogen 24 mg/dL (9-16); Calcium 9.9 mg/dL (8.4-10.2); Carbon Dioxide 25 mmol/L (22-29); Chloride 110 mmol/L (96-108); Estimated Glomerular Filt Rate 32; Glucose Random 96 mg/dL (60-115); Potassium 4.5 mmol/L (3.3-5.1); Sodium 146 mmol/L (135-145)
== END 2023-04-19 07:08 | disposition home or self-care (01) ==
LOC: HO.LAB 07:07
PROVIDERS: PCP Hospitalist; Visit Provider Internal Medicine Hypertension Specialist
DX: N18.32 Chronic kidney disease, stage 3b (principal)
CPT/HCPCS: 36415; 80048; 85025

== ENCOUNTER 2023-04-27 15:14 | Outpatient (AMB) | payer MEDICAID, SELFPAY ==
--- NOTE | 2023-04-27 15:43 | AM.OFFWIN_ITS ---
Intake Vital Signs 04/27/23 15:47 BP 120/70 Blood Pressure Location Rt brachial Position Sitting Pulse 66 Pulse Source Pulse Oximeter Pulse Oximetry (%) 96 Oxygen Delivery Method Room Air Intake Visit Reasons: EP Rash RT leg (lobby) Intake Note: Patient here because he has a leg brace that goes on the right leg and has been rubbing on it and now has cuts on leg. Patient Tobacco Use Status: Former Tobacco user Allergies amlodipine [From [facility]] Allergy (Severe, Verified 04/27/23 15:46) due to poor renal function ibuprofen Allergy (Severe, Verified 04/27/23 15:46) 2/2 renal function Do you need a note to return to daycare/school/sports/work: No HPI EP Rash RT leg (lobby) 2 HPI Details 62-year-old male from a intermediate presents to the office for a sick visit. Patient normally wears a brace. He has developed a rash in the area and it is very itchy. [facility] Medical History Anemia Aphagia Bronchitis Cerebrovascular accident Chronic kidney disease, stage 3 CKD (chronic kidney disease) Constipation Diabetes Diabetes type 2, uncontrolled Encephalopathy Epigastric pain Essential hypertension GERD (gastroesophageal reflux disease) Hearing loss Hemiplegia HTN (hypertension) Hyperlipidemia Hyperlipidemia Hypertensive chronic kidney disease with stage 1 through stage 4 chronic kidney disease, or unspecified chronic kidney disease Hypoglycemia unawareness associated with type 2 diabetes mellitus Postoperative bleeding from incision Preglaucoma Skin cancer Skin lesion Skin lesion Squamous cell carcinoma of skin Stroke Type 2 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 Unsteady gait Vascular device, implant, or graft complication Vitamin D deficiency Vitamin D deficiency Surgical History History of exploratory laparotomy History of removal of cyst (~02/09/22) History of surgical removal of skin lesion Hx of cataract surgery Family History Father Myocardial infarction Mother Throat cancer Diabetes Family/Other FH: mental illness Brother In good health Sister In good health Sister In good health Daughter In good health Social History 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 Household Members Other:: intermediate Housing: [facility] Do you presently have visiting nurse or other home services: Yes Alcohol intake: never Patient Tobacco Use Status: Former Tobacco user Tobacco use type: Cigarette Cigarette Packs Per Day: 2 Cigarettes Per Day: 40.0 Years Smoked: 16 e-Cigarette/Vaping Use: Former Use Second Hand Smoke Exposure: No Advance Directives Date on File: 12/02/20 service: No Current occupational status: disabled Current occupational exposures/hazards: No Cognitive needs: No Hearing needs: No Vision needs: No Physical Exam Vital Signs: Last Vital Signs Pulse 66 04/27/23 15:47 BP 120/70 04/27/23 15:47 Pulse Ox 96 04/27/23 15:47 Oxygen Delivery Method Room Air 04/27/23 15:47 Skin Other: Right leg: Erythematous area with scales. No vesicles or pustules. Assessment & Plan Assessment & Plan (1) Rash: Code(s): R21 - Rash and other nonspecific skin eruption Plan: Eczematous rash. Triamcinolone ointment to affected area. Coding Level of Care Code Est Pt Level 3 (91074) Diagnoses Rash R21
[2023-04-27 15:47] VITALS: BP 120/70; PULSE 66; O2SAT 96
== END 2023-04-27 16:44 | disposition home or self-care (01) ==
LOC: HO.HMGWI 15:14
PROVIDERS: PCP Hospitalist
DX: R21 Rash and other nonspecific skin eruption (principal)
CPT/HCPCS: 99213

== ENCOUNTER 2023-05-17 15:34 | Outpatient (AMB) | payer MEDICAID, SELFPAY ==
--- NOTE | 2023-05-17 15:44 | MHC.PC.OV ---
Vital Signs 05/17/23 15:45 Height 5 ft 6 in Weight 192 lb 8 oz BMI 31.1 BP 122/66 Blood Pressure Location Lt brachial Position Sitting Respiration 12 Pulse 81 Pulse Source Pulse Oximeter Temp 98.1 F Temp Source Temporal Artery Scan Pulse Oximetry (%) 96 Oxygen Delivery Method Room Air Intake Visit Reasons: R side pain Intake Note: Patient states it started on Wednesday. Patient states that it feels like a stabbing pain. Patient states that the pain is usually worse around night time. Patient states that the pain hasn't allowed him to sleep very well. Patient states that he wasnt doing anything specific when pain happened. Auto Wheel Alignment Specialist Required: Yes Auto Wheel Alignment Specialist Name: Ankur ([id number]) Accompanied by: family caseworker Allergies amlodipine [From [facility]] Allergy (Severe, Verified 05/17/23 16:02) due to poor renal function ibuprofen Allergy (Severe, Verified 05/17/23 16:02) 2/2 renal function Medication List - Last Reconciled 05/17/23 by Nikki Naik CNP acetaminophen (Tylenol) 650 mg (2 x 325 mg) PO Q6H PRN 30 days apixaban (Eliquis) 5 mg PO BID ascorbic acid (vitamin C) 500 mg PO BID 3 months aspirin 81 mg PO QAM 90 days atorvastatin 80 mg PO BEDTIME 90 days blood sugar diagnostic (FreeStyle Lite Strips) USE TO TEST BLOOD SUGAR FOUR TIMES A DAY blood-glucose meter (FreeStyle Lite Meter kit) As directed dulaglutide (Trulicity) 4.5 mg (0.5 mL) subcut QWEEK 28 days empagliflozin (Jardiance) 10 mg PO QAM ergocalciferol (vitamin D2) (Vitamin D2) 50,000 units PO QWEEK 28 days fluoxetine 40 mg PO DAILY glucose 15 grams PO Q15M PRN hydralazine 50 mg See Protocol PO TID 90 days insulin degludec (Tresiba FlexTouch U-200 insulin) 42 units (0.21 mL) subcut DAILY 30 days lactulose (Enulose) 30 mL PO .q72 h PRN lancets (Easy Touch Safety Lancets) USE 2-3 TIMES A DAY DIRECTED FOR BLOOD GLUCOSE MONITORING lorazepam (Ativan) 0.5 mg PO DAILY PRN losartan 75 mg (1.5 x 50 mg) PO DAILY 1 month metoprolol succinate ER 25 mg PO BEDTIME 28 days miscellaneous medical supply R AFO, Daily As directed, 999 days. Disp #1 miscellaneous medical supply Right lateral sole wedge as directed; nifedipine ER (Procardia XL) 30 mg PO DAILY pen needle, diabetic (Easy Touch) 1 ea miscellaneous TID 28 days polyethylene glycol 3350 17 grams PO BID risperidone (Risperdal) 0.5 mg PO BID sennosides (senna) 8.6 mg PO BID tamsulosin 0.4 mg PO BEDTIME trazodone 100 mg PO BEDTIME ursodiol 300 mg PO BID Tobacco use date assessed: 11/16/22 Dental Screening Dental Screen Date: 05/17/23 Did you have a dental visit in the last 12 months?: Yes Did you have a dental problem in the last 6 months where you did not have access to dental care?: No Was dental information given to patient?: Patient has dentist HPI HPI Comments History of Present Illness Details 62-year-old Turkmen speaking male presents with complaints of right flank pain. He describes the pain as stabbing and have been ongoing for the past 4 days. He notes the pain is most severe at night and interrupts his sleep. He denies fall, trauma or injury. He denies symptoms. He denies fever, chills, body aches, fatigue, or weakness. He reports unsteady gait due to right lower extremity deformity. He is from a correction and escorted by a correction staff. Interpretation by a professional crab fisher via electronic tablet. [facility] Medical History Anemia Aphagia Bronchitis Cerebrovascular accident Chronic kidney disease, stage 3 CKD (chronic kidney disease) Constipation Diabetes Diabetes type 2, uncontrolled Encephalopathy Epigastric pain Essential hypertension GERD (gastroesophageal reflux disease) Hearing loss Hemiplegia HTN (hypertension) Hyperlipidemia Hyperlipidemia Hypertensive chronic kidney disease with stage 1 through stage 4 chronic kidney disease, or unspecified chronic kidney disease Hypoglycemia unawareness associated with type 2 diabetes mellitus Postoperative bleeding from incision Preglaucoma Skin cancer Skin lesion Skin lesion Squamous cell carcinoma of skin Stroke Type 2 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 Unsteady gait Vascular device, implant, or graft complication Vitamin D deficiency Vitamin D deficiency Surgical History History of exploratory laparotomy History of removal of cyst (~02/09/22) History of surgical removal of skin lesion Hx of cataract surgery Family History Father Myocardial infarction Mother Throat cancer Diabetes Family/Other FH: mental illness Brother In good health Sister In good health Sister In good health Daughter In good health Social History 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 Household Members Other:: correction Housing: House Do you presently have visiting nurse or other home services: Yes Alcohol intake: never Patient Tobacco Use Status: Former Tobacco user Tobacco use type: Cigarette Cigarette Packs Per Day: 2 Cigarettes Per Day: 40.0 Years Smoked: 16 e-Cigarette/Vaping Use: Former Use Second Hand Smoke Exposure: No Advance Directives Date on File: 12/02/20 service: No Current occupational status: disabled Current occupational exposures/hazards: No Cognitive needs: No Hearing needs: No Vision needs: No Questionnaire Thrive Questionnaire Date Thrive assessed: 07/23/21 PARRISH-7 AMB Questionnaire PARRISH-7 Date PARRISH - 7 assessed: 07/23/21 Source: Developed by Drs. Amari Ortega, Chaparrita Mg, oDmingo Cummings and colleagues, with an educational anthony from [employer]. Review of Systems Const Details: Const Denies chills, Denies fatigue, Denies fever(s), Denies headache(s) and Denies weakness ENT Denies dizziness and Denies headache(s) Card Denies chest pain, Denies lightheadedness, Denies dyspnea and Denies other (Palpitations) Resp Denies cough, Denies dyspnea, Denies wheezing and Denies other ( shortness of breath) GI Denies abdominal pain, Denies melena, Denies hematochezia, Denies change in bowel habits, Denies dyspepsia and Denies nausea Denies hematuria and Denies dysuria Musc Reports right flank pain, Reports unsteady gait at baseline, Denies arthralgias, Denies numbness and Denies tingling Skin/Breast Denies rash, Denies unusual bruising and Denies wounds Neuro Denies abnormal gait, Denies dizziness, Denies headache(s), Denies memory loss, Denies numbness, Denies Sensory deficit (Neuro), Denies tingling and Denies weakness Psych Denies anxiety, Denies depression, Denies memory loss Endo Denies cold intolerance, Denies fatigue, Denies heat intolerance, Denies polydipsia and Denies polyuria Aller/Immun Denies wheezing Physical exam (Primary Care) Vital Signs: Last Vital Signs Temp 98.1 F 05/17/23 15:45 Pulse 81 05/17/23 15:45 Resp 12 05/17/23 15:45 BP 122/66 05/17/23 15:45 Pulse Ox 96 05/17/23 15:45 Oxygen Delivery Method Room Air 05/17/23 15:45 BMI result Body Mass Index 31.1 Tobacco/Smoking Status: Tobacco use Status Tobacco use date assessed 11/16/22 05/17/23 15:44 Patient Tobacco Use Status Former Tobacco user 05/17/23 15:44 Tobacco use type Cigarette 05/17/23 15:44 e-Cigarette/Vaping Use Former Use 05/17/23 15:44 Thrive Assessment: Date of Thrive Assessment Date Thrive assessed 07/23/21 05/17/23 15:44 Const Other: General: no acute distress and well developed Nutritional Appearance: well nourished Orientation/consciousness: patient oriented x3 HENMT Head: Yes normocephalic and Yes atraumatic Eyes General: appearance normal, both eyes and all related structures Pupils: Equal, round and reactive pupils present EOM: EOMs intact bilaterally Resp Effort & Inspection: normal respiratory effort Auscultation: clear to auscultation bilaterally Cardio Rate: regular rate Rhythm: regular rhythm Heart sounds: S1 normal heart sound present, S2 normal heart sound present, no gallops, no murmurs and no rubs GI Palpation (GI): No Abdominal aortic bruit present, Soft to palpation, nontender, No hepatosplenomegaly present and No Rebound tenderness present Auscultation: normal bowel sounds General: Right CVA tenderness Back/Spine/Pelvis Back: no CVA tenderness Cervical Spine: cervical ROM normal and No Cervical spine tenderness Thoracic/Lumbar Spine: thoraco-lumbar ROM normal, No pain with thoraco-lumbar ROM, No thoracic spinal tenderness and No lumbar spinal tenderness Tenderness to palpation of the right flank Extrem General: Yes normal to inspection, No edema and No calf tenderness Skin General: warm and dry. Normal skin color. Normal skin turgor Lesions: no lesions Rashes: no rashes Trauma: no lacerations or abrasions Wounds: no wounds Nails: normal Neuro General: patient oriented x3, unsteady gait l and no focal neuro deficit Cranial nerves: Yes Equal, round and reactive pupils present Cognition (Neuro): normal cognition Gait exam (Neuro): Unsteady gait present Sensory Exam: No Sensory deficit (Neuro) Psych Appearance: grossly normal Affect: normal affect Attitude: cooperative Thought process: Normal thought process present Results AMB Urinalysis Dipstick UR Leukocytes Negative Last Edit by Ilana Gill CMA on 05/17/23 17:12 UR Nitrite Negative Last Edit by Ilana Gill CMA on 05/17/23 17:12 UR Urobilinogen Normal Last Edit by Ilana Gill CMA on 05/17/23 17:12 UR Protein Trace Last Edit by Ilana Gill CMA on 05/17/23 17:12 UR Ph 6.0 Last Edit by Ilana Gill CMA on 05/17/23 17:12 UR Blood Negative Last Edit by Ilana Gill CMA on 05/17/23 17:12 UR Specific [place] 1.010 Last Edit by Ilana Gill CMA on 05/17/23 17:12 UR Ketone Negative Last Edit by Ilana Gill CMA on 05/17/23 17:12 UR Bilirubin Negative Last Edit by Ilana Gill CMA on 05/17/23 17:12 UR Glucose 2000 Last Edit by Ilana Gill CMA on 05/17/23 17:12 Assessment and Plan Assessment & Plan (1) Right flank pain: Code(s): R10.9 - Unspecified abdominal pain Plan: Tenderness to palpation of the right flank Right CVA tenderness Likely kidney stone even though urine dip is negative for RBC Will send urine to the lab for urinalysis Tramadol ordered. Take as prescribed. Continue to take Tylenol as prescribed Adequate hydration encouraged CT scan ordered Follow-up or go to the ED with worsening or new symptoms Verbalized understanding and agreed with treatment plan. Orders: Orders UA CC w/rflx Micro + Cult Today R10.9 - Unspecified abdominal pain AMB Urinalysis Dipstick Today Z13.9 - Encounter for screening, unspecified CT abdomen wo IV con Today R10.9 - Unspecified abdominal pain Medications: New tramadol 50 mg PO BID PRN 6 tabs 0RF pain 3 days Coding Level of Care Code Est Pt Level 3 (59602) Diagnoses Right flank pain R10.9
[2023-05-17 15:45] VITALS: BP 122/66; PULSE 81; RESP 12; TEMP 36.7; O2SAT 96; BMI 31.1
== END 2023-05-17 17:15 | disposition home or self-care (01) ==
PROVIDERS: PCP Hospitalist; Visit Provider Nurse Practitioner Family
DX: R10.9 Unspecified abdominal pain (principal); Z13.9 Encounter for screening, unspecified
CPT/HCPCS: 81002; 99213

== ENCOUNTER 2023-05-17 16:59 | Outpatient (REF) | payer MEDICAID, SELFPAY ==
[2023-05-18 12:22] LABS: Appearance Urine Clear; Color Urine Yellow; Glucose Urine UA >=1000 mg/dL (Negative); Leukocyte Esterase Urine Negative (Negative); Nitrite Urine Negative (Negative); PH 5.5 (5.0-9.0); UMIC TRIGGER UACC YES; Urine Blood Negative (Negative); Urine Ketones Negative (Negative); Urine Protein 30 (1+) mg/dL (Neg-Trace)
[2023-05-18 12:24] LABS: Bacteria Urine None Seen (None Seen); Hyaline Casts Urine 0-2 /LPF (0-2); RBC Urine 0-2 /HPF (0-2); Squamous Epithelial Cell Urine 0-2 /HPF (0-2); WBC Urine 0-5 /HPF (0-5)
== END 2023-05-17 17:00 | disposition home or self-care (01) ==
LOC: HO.LAB 16:59
PROVIDERS: Visit Provider Nurse Practitioner Family
DX: R10.9 Unspecified abdominal pain (principal)
CPT/HCPCS: 81001

== ENCOUNTER 2023-06-28 11:08 | Outpatient (AMB) | payer MEDICAID, SELFPAY ==
--- NOTE | 2023-06-28 11:16 | MHC.OFFVIS ---
Intake Vital Signs 06/28/23 11:17 Height 5 ft 6 in Weight 191 lb 12.835 oz BMI 31.0 BP 124/72 Blood Pressure Location Lt brachial Position Sitting Pulse 66 Intake Visit Reasons: 6 mth f/up Intake Note: 6 month follow-up with ekg Set Off Press Operator Required: Yes Set Off Press Operator Name: Molly heart Hydroelectric Production Technician: Hydroelectric Production Technician Present Accompanied by: manager social responsibility Allergies amlodipine [From [facility]] Allergy (Severe, Verified 05/17/23 16:02) due to poor renal function ibuprofen Allergy (Severe, Verified 05/17/23 16:02) 2/2 renal function Medication List - Last Reconciled 06/28/23 by Marino Benson MD acetaminophen (Tylenol) 650 mg (2 x 325 mg) PO Q6H PRN 30 days apixaban (Eliquis) 5 mg PO BID ascorbic acid (vitamin C) 500 mg PO BID 3 months aspirin 81 mg PO QAM 90 days atorvastatin 80 mg PO BEDTIME 90 days blood sugar diagnostic (FreeStyle Lite Strips) USE TO TEST BLOOD SUGAR FOUR TIMES A DAY blood-glucose meter (FreeStyle Lite Meter kit) As directed dulaglutide (Trulicity) 4.5 mg (0.5 mL) subcut QWEEK 28 days empagliflozin (Jardiance) 10 mg PO QAM ergocalciferol (vitamin D2) (Vitamin D2) 50,000 units PO QWEEK 28 days fluoxetine 40 mg PO DAILY glucose 15 grams PO Q15M PRN hydralazine 50 mg See Protocol PO TID 90 days insulin degludec (Tresiba FlexTouch U-200 insulin) 42 units (0.21 mL) subcut DAILY 30 days lactulose (Enulose) 30 mL PO .q72 h PRN lancets (Easy Touch Safety Lancets) USE 2-3 TIMES A DAY DIRECTED FOR BLOOD GLUCOSE MONITORING lorazepam (Ativan) 0.5 mg PO DAILY PRN losartan 75 mg (1.5 x 50 mg) PO DAILY 1 month metoprolol succinate ER 25 mg PO BEDTIME 28 days miscellaneous medical supply R AFO, Daily As directed, 999 days. Disp #1 miscellaneous medical supply Right lateral sole wedge as directed; multivitamin,tx-minerals (Multi-Vitamin HP/Minerals capsule) 1 cap PO DAILY nifedipine ER (Procardia XL) 30 mg PO DAILY pen needle, diabetic (Easy Touch) 1 ea miscellaneous TID 28 days polyethylene glycol 3350 17 grams PO BID risperidone (Risperdal) 0.5 mg PO BID sennosides (senna) 8.6 mg PO BID tamsulosin 0.4 mg PO BEDTIME tramadol 50 mg PO BID PRN 3 days trazodone 100 mg PO BEDTIME ursodiol 300 mg PO BID HPI HPI Comments History of Present Illness Details 62-year-old gentleman here for follow-up. He was seen for chest discomfort. He was referred for stress test and underwent Lexiscan which did not show any perfusion defect or ECG changes. He was reassured. Is returning because his blood pressure was noted to be elevated previously. He has been taking medications regularly. His blood pressure in the office is normal. The blood pressure readings from home are also mostly normal. He is denying chest discomfort shortness of breath. He walks with a walker and has been trying to exercise at his home. 06/28/2023: He is returning for follow-up. He is denying any chest discomfort shortness of breath. Blood pressure control is good. He has not had any lipid pain recently. [facility] Medical History Anemia Aphagia Bronchitis Cerebrovascular accident Chronic kidney disease, stage 3 CKD (chronic kidney disease) Constipation Diabetes Diabetes type 2, uncontrolled Encephalopathy Epigastric pain Essential hypertension GERD (gastroesophageal reflux disease) Hearing loss Hemiplegia HTN (hypertension) Hyperlipidemia Hyperlipidemia Hypertensive chronic kidney disease with stage 1 through stage 4 chronic kidney disease, or unspecified chronic kidney disease Hypoglycemia unawareness associated with type 2 diabetes mellitus Postoperative bleeding from incision Preglaucoma Skin cancer Skin lesion Skin lesion Squamous cell carcinoma of skin Stroke Type 2 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 Unsteady gait Vascular device, implant, or graft complication Vitamin D deficiency Vitamin D deficiency Surgical History History of exploratory laparotomy History of removal of cyst (~02/09/22) History of surgical removal of skin lesion Hx of cataract surgery Family History Father Myocardial infarction Mother Throat cancer Diabetes Family/Other FH: mental illness Brother In good health Sister In good health Sister In good health Daughter In good health Social History 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 Household Members Other:: custodial Housing: House Do you presently have visiting nurse or other home services: Yes Alcohol intake: never Patient Tobacco Use Status: Former Tobacco user Tobacco use type: Cigarette Cigarette Packs Per Day: 2 Cigarettes Per Day: 40.0 Years Smoked: 16 e-Cigarette/Vaping Use: Former Use Second Hand Smoke Exposure: No Advance Directives Date on File: 12/02/20 service: No Current occupational status: disabled Current occupational exposures/hazards: No Cognitive needs: No Hearing needs: No Vision needs: No Review of Systems Const Denies chills, Denies fatigue, Denies fever(s), Denies frequent falls, Denies weakness, Denies weight gain and Denies weight loss ENT Denies dizziness Card Denies chest pain, Denies leg edema, Denies lightheadedness, Denies palpitations, Denies dyspnea, Denies dyspnea on exertion, Denies orthopnea and Denies other (loss of consciousness) Resp Denies cough, Denies dyspnea and Denies dyspnea on exertion GI Denies hematochezia and Denies change in stool character Musc Denies abnormal gait, Denies muscle weakness, Denies numbness, Denies radiating pain into limb and Denies tingling Neuro Denies abnormal gait, Denies dizziness, Denies frequent falls, Denies numbness, Denies tingling and Denies weakness Endo Denies fatigue and Denies palpitations Physical Exam Vital Signs: Last Vital Signs Pulse 66 06/28/23 11:17 BP 124/72 06/28/23 11:17 BMI result Body Mass Index 31.0 GENERAL APPEARANCE: in no acute distress, well developed, well nourished. NECK/THYROID: no carotid bruit, no jugular venous distention. SKIN: no suspicious lesions, warm and dry. HEART: no murmurs, regular rate and rhythm, S1, S2 normal. LUNGS: clear to auscultation bilaterally. ABDOMEN: normal, bowel sounds present, soft, nontender, nondistended. EXTREMITIES: no clubbing, cyanosis, or edema. PERIPHERAL PULSES: equal. NEUROLOGIC: Power left upper and lower extremities 3+/5. PSYCH: mood/affect full range. Office Procedures EKG Details: Sinus rhythm 66 beats per minute, normal axis, QTC 438 milliseconds. [id number], Complete Assessment & Plan Assessment & Plan (1) HTN (hypertension): Code(s): I10 - Essential (primary) hypertension Qualifiers: Hypertension type: essential hypertension Qualified Code(s): I10 - Essential (primary) hypertension (2) Hyperlipidemia: Comment: LDL goal <70 Code(s): E78.5 - Hyperlipidemia, unspecified Qualifiers: Hyperlipidemia type: unspecified Qualified Code(s): E78.5 - Hyperlipidemia, unspecified Plan 62-year-old gentleman presenting for follow-up. No chest discomfort on follow-up. Previous Lexiscan was normal. On apixaban for previous DVT. I have advised him to get a fasting lipid panel. Overall stable. Blood pressure is good. Follow-up in 6 months. Thank you for allowing me to participate in the care of your patient. Please feel free to contact me if you have any questions. Orders: Orders Lipid Panel Today E11.649 - Type 2 diabetes mellitus with hypoglycemia without coma Coding Level of Care Code Est Pt Level 3 (56377) Diagnoses Essential hypertension I10 Hypertension type: essential hypertension Hyperlipidemia, unspecified hyperlipidemia type E78.5 Hyperlipidemia type: unspecified CPT Codes EKG - CPT: 06399-[id number], Complete ([id number])
[2023-06-28 11:17] VITALS: BP 124/72; PULSE 66; BMI 31.0
== END 2023-06-28 11:44 | disposition home or self-care (01) ==
PROVIDERS: PCP Hospitalist; Visit Provider Internal Medicine Cardiovascular Disease
DX: I10 Essential (primary) hypertension (principal); E78.5 Hyperlipidemia, unspecified
CPT/HCPCS: 93010; 99213

== ENCOUNTER → 2023-06-28 11:08 | Outpatient (BNVA) | payer MEDICAID, SELFPAY | PROVIDERS: PCP Hospitalist; Visit Provider Internal Medicine Cardiovascular Disease | DX: I10 Essential (primary) hypertension (principal); E78.5 Hyperlipidemia, unspecified | CPT/HCPCS: 93005; 99212 ==

== ENCOUNTER 2023-07-02 10:12 | Outpatient (REF) | payer MEDICAID, SELFPAY ==
--- NOTE | ~2023-07-02 | CT_ITS ---
EXAMINATION: CT ABDOMEN WITHOUT CONTRAST CLINICAL INFORMATION: Right flank pain. COMPARISON: CT abdomen and pelvis 07/28/2020. TECHNIQUE: Contiguous axial thin section helical images of the abdomen were performed without contrast. The data set was reformatted in the coronal and sagittal planes and reviewed on an independent workstation. This CT examination was performed using dose optimization techniques as appropriate, variously including the following: *Automated exposure control *Adjustment of mA and/or kV according to patient size (this includes techniques or standardized protocols for targeted exams where dose is matched to indication/reason for exam; i.e. extremities or head) *Use of iterative reconstruction technique DLP: 350 mGy-cm FINDINGS: LUNG BASES: No suspicious lung nodules. LAD and LCx coronary calcium LIVER, GALLBLADDER, BILIARY TREE: Calcified granuloma in the left lobe of the liver. No discrete liver mass. No ductal dilatation. Small cholelithiasis without evidence of cholecystitis. PANCREAS: No discrete pancreatic mass. No pancreatic ductal dilatation. SPLEEN: Calcified granulomas in the spleen. ADRENAL GLANDS AND KIDNEYS: Tiny nodule in the left adrenal gland consistent with a lipid rich adenoma. No nephrolithiasis. Subcentimeter hyperdense cortical lesions in the left kidney consistent with hyperdense cysts. No hydronephrosis. BOWEL LOOPS: The visualized segments of small and large bowel are normal in caliber. The appendix is normal in caliber. No mesenteric mass or fluid. Supraumbilical ventral hernia repair with mesh. No visible recurrent hernia. LYMPH NODES: No lymphadenopathy VASCULAR: Normal caliber abdominal aorta with mild atherosclerotic disease. By conical infrarenal IVC filter with atretic infrarenal cava and densely calcified intraluminal material in the infrarenal cava and common iliac veins. 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 There are large body wall collaterals. The suprarenal IVC is normal in caliber. BONES: Mild degenerative changes in the spine. CT/CT abdomen wo IV con IMPRESSION: No explanation for right flank pain. No nephrolithiasis or hydronephrosis. Cholelithiasis without evidence of acute cholecystitis. 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 LAD and LCx coronary calcium. Fleischner guidelines were followed.
== END 2023-07-02 10:13 | disposition home or self-care (01) ==
LOC: HO.CT 10:12
PROVIDERS: PCP Hospitalist; Visit Provider Nurse Practitioner Family
DX: R10.9 Unspecified abdominal pain (principal)
CPT/HCPCS: 74150

== ENCOUNTER 2023-07-05 14:52 | Outpatient (AMB) | payer MEDICAID, SELFPAY ==
[2023-07-05 14:55] VITALS: BP 124/70; PULSE 86; RESP 13; TEMP 36.6; O2SAT 97; BMI 30.7
--- NOTE | 2023-07-05 14:55 | A.OFFPC_ITS ---
Vital Signs 07/05/23 14:55 Height 5 ft 6 in Weight 190 lb 6 oz BMI 30.7 BP 124/70 Blood Pressure Location Lt brachial Position Sitting Respiration 13 Pulse 86 Pulse Source Pulse Oximeter Temp 97.8 F Temp Source Temporal Artery Scan Pulse Oximetry (%) 97 Oxygen Delivery Method Room Air Intake Visit Reasons: 3 m fu for weight and dm Intake Note: Patient has dry cracking feet and sometimes the skin will break and become raw. Patient needs refill on Aspirin, Polyetheline. Eliquis, flomax, ursodial, senna metoprolol. Studio Couch Frame Builder Required: Yes Studio Couch Frame Builder Name: Sindi ([id number]) Accompanied by: balancing machine set up worker Allergies amlodipine [From [facility]] Allergy (Severe, Verified 07/05/23 15:09) due to poor renal function ibuprofen Allergy (Severe, Verified 07/05/23 15:09) 2/2 renal function Tobacco use date assessed: 11/16/22 Dental Screening Dental Screen Date: 07/05/23 Did you have a dental visit in the last 12 months?: Yes Did you have a dental problem in the last 6 months where you did not have access to dental care?: No Was dental information given to patient?: Patient has dentist HPI HPI Comments History of Present Illness Details 62-year-old Malay speaking male presen for diabetes and weight management follow-up. His former PCP is JOHN, who is no longer with the practice. He notes he has been taking his medications as prescribed. He reports unsteady gait due to right lower extremity deformity. He denies acute symptoms at this time. He is from a assisted and escorted by a assisted staff. He is followed by nephrology, cardiology, and podiatry. According to the assisted staff, he was last evaluated by Dr. Falk, nephrology, in April, and that his hypertensive medications are managed by nephrology. He was recently seen by cardiology and podiatry. Interpretation by a professional video tape transferrer via electronic tablet. [facility] Medical History Skin lesion Squamous cell carcinoma of skin Encephalopathy Cerebrovascular accident Hypoglycemia unawareness associated with type 2 diabetes mellitus Diabetes type 2, uncontrolled Type 2 diabetes mellitus with diabetic polyneuropathy Essential hypertension Epigastric pain Skin cancer Postoperative bleeding from incision Skin lesion Stroke Type 2 diabetes mellitus with chronic kidney disease Chronic kidney disease, stage 3 Aphagia Unsteady gait Anemia Hypertensive chronic kidney disease with stage 1 through stage 4 chronic kidney disease, or unspecified chronic kidney disease CKD (chronic kidney disease) Hearing loss Preglaucoma Vascular device, implant, or graft complication Bronchitis HTN (hypertension) Hyperlipidemia Hyperlipidemia Vitamin D deficiency Vitamin D deficiency Constipation GERD (gastroesophageal reflux disease) Diabetes Hemiplegia Surgical History History of removal of cyst (~02/09/22) Hx of cataract surgery History of surgical removal of skin lesion History of exploratory laparotomy Family History Father Myocardial infarction Mother Throat cancer Diabetes Family/Other FH: mental illness Brother In good health Sister In good health Sister In good health Daughter In good health Social History 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 Household Members Other:: assisted Housing: House Do you presently have visiting nurse or other home services: Yes Alcohol intake: never Patient Tobacco Use Status: Former Tobacco user Tobacco use type: Cigarette Cigarette Packs Per Day: 2 Cigarettes Per Day: 40.0 Years Smoked: 16 e-Cigarette/Vaping Use: Never Used Second Hand Smoke Exposure: No Advance Directives Date on File: 12/02/20 service: No Current occupational status: disabled Current occupational exposures/hazards: No Cognitive needs: No Hearing needs: No Vision needs: No Questionnaire Thrive Questionnaire Date Thrive assessed: 07/23/21 PARRISH-7 AMB Questionnaire PARRISH-7 Date PARRISH - 7 assessed: 07/23/21 Source: Developed by Drs. Amari Ortega, Chaparrita Mg, Domingo Cummings and colleagues, with an educational anthony from [employer]. Review of Systems Const Details: Const Details: Const Denies chills, Denies fatigue, Denies fever(s), Denies headache(s) and Denies weakness ENT Denies dizziness and Denies headache(s) Card Denies chest pain, Denies lightheadedness, Denies dyspnea and Denies other (Palpitations) Resp Denies cough, Denies dyspnea, Denies wheezing and Denies other ( shortness of breath) GI Denies abdominal pain, Denies melena, Denies hematochezia, Denies change in bowel habits, Denies dyspepsia and Denies nausea Denies hematuria and Denies dysuria Musc Reports right flank pain, Reports unsteady gait at baseline, Denies arthralgias, Denies numbness and Denies tingling Skin/Breast Denies rash, Denies unusual bruising and Denies wounds Neuro Denies abnormal gait, Denies dizziness, Denies headache(s), Denies memory loss, Denies numbness, Denies Sensory deficit (Neuro), Denies tingling and Denies weakness Psych Denies anxiety, Denies depression, Denies memory loss Endo Denies cold intolerance, Denies fatigue, Denies heat intolerance, Denies polydipsia and Denies polyuria Aller/Immun Denies wheezing Physical exam (Primary Care) Vital Signs: Last Vital Signs Temp 97.8 F 07/05/23 14:55 Pulse 86 07/05/23 14:55 Resp 13 07/05/23 14:55 BP 124/70 07/05/23 14:55 Pulse Ox 97 07/05/23 14:55 Oxygen Delivery Method Room Air 07/05/23 14:55 BMI result Body Mass Index 30.7 Tobacco/Smoking Status: Tobacco use Status Tobacco use date assessed 11/16/22 07/05/23 14:56 Patient Tobacco Use Status Former Tobacco user 07/05/23 14:56 Tobacco use type Cigarette 07/05/23 14:56 e-Cigarette/Vaping Use Never Used 07/05/23 15:16 Thrive Assessment: Date of Thrive Assessment Date Thrive assessed 07/23/21 07/05/23 14:56 Const Other: Const Other: General: no acute distress and well developed Nutritional Appearance: well nourished Orientation/consciousness: patient oriented x3 [facility] Head: Yes normocephalic and Yes atraumatic Eyes General: appearance normal, both eyes and all related structures Pupils: Equal, round and reactive pupils present EOM: EOMs intact bilaterally Resp Effort & Inspection: normal respiratory effort Auscultation: clear to auscultation bilaterally Cardio Rate: regular rate Rhythm: regular rhythm Heart sounds: S1 normal heart sound present, S2 normal heart sound present, no gallops, no murmurs and no rubs GI Palpation (GI): No Abdominal aortic bruit present, Soft to palpation, nontender, No hepatosplenomegaly present and No Rebound tenderness present Auscultation: normal bowel sounds General: Right CVA tenderness Back/Spine/Pelvis Back: no CVA tenderness Cervical Spine: cervical ROM normal and No Cervical spine tenderness Thoracic/Lumbar Spine: thoraco-lumbar ROM normal, No pain with thoraco-lumbar ROM, No thoracic spinal tenderness and No lumbar spinal tenderness Tenderness to palpation of the right flank Extrem General: Yes normal to inspection, No edema and No calf tenderness Skin General: warm and dry. Normal skin color. Normal skin turgor Lesions: no lesions Rashes: no rashes Trauma: no lacerations or abrasions Wounds: no wounds Nails: normal Neuro General: patient oriented x3, unsteady gait, and no focal neuro deficit Cranial nerves: Yes Equal, round and reactive pupils present Cognition (Neuro): normal cognition Gait exam (Neuro): Unsteady gait present Sensory Exam: No Sensory deficit (Neuro) Psych Appearance: grossly normal Affect: normal affect Attitude: cooperative Thought process: Normal thought process present Results AMB Hemoglobin A1c AMB Hemoglobin A1c 8.1 % Last Edit by Jeny Quinones MA on 07/05/23 15:18 Results Reviewed Results Reviewed: Laboratory Last Values Hgb A1c (Clinic) 8.1 % (4.0-6.0) H 07/05/23 15:17 Assessment and Plan Assessment & Plan (1) Type 2 diabetes mellitus with diabetic polyneuropathy: Code(s): E11.42 - Type 2 diabetes mellitus with diabetic polyneuropathy Qualifiers: Diabetes mellitus shelter insulin use: without shelter use Qualified Code(s): E11.42 - Type 2 diabetes mellitus with diabetic polyneuropathy Plan: A1c is 8.1% today, above goal of less than 7.0%. Previous A1c in November was 9.8% Will increase Tresiba to 46 units daily Jardiance and Trulicity as prescribed ADA diet and routine exercise encouraged Advised to have VNA nurses monitor FBS and RBS daily and reports fasting glucose below 70 and random glucose consistently above 200 Advised to perform fasting lipid panel labs ordered by Cardiology Continue follow-up with Podiatry and Ophthalmology as planned Return in 3 months or sooner with symptoms or concerns Verbalized understanding and agreed with treatment plan. (2) Obesity (BMI 30.0-34.9): Code(s): E66.9 - Obesity, unspecified Plan: He currently weighs 190 lb, BMI is 30.7, slightly below previous BMI ADA diet and routine exercise encouraged Advised to take diabetic medications as prescribed Return with symptoms or concerns Verbalized understanding and agreed with treatment plan Orders: Orders AMB Hemoglobin A1c Today Z13.9 - Encounter for screening, unspecified Medications: Changed From insulin degludec (Tresiba FlexTouch U-200 insulin) Report any blood sugars <70 42 units (0.21 mL) subcut DAILY 30 days 9 mL 5RF To insulin degludec (Tresiba FlexTouch U-200 insulin) Report any blood sugars <70 46 units (0.23 mL) subcut DAILY 6.9 mL 5RF 30 days Refilled aspirin Do not crush/chew 81 mg PO QAM 90 days 90 tabs 3RF polyethylene glycol 3350 17 grams PO BID 1,020 grams 8RF K59.01 - Slow transit constipation apixaban (Eliquis) Report any excessive bleeding 5 mg PO BID 56 tabs 11RF tamsulosin 0.4 mg PO BEDTIME 90 caps 3RF E11.22 - Type 2 diabetes mellitus with diabetic chronic kidney disease, N18.30 - Chronic kidney disease, stage 3 unspecified, Z79.4 - senior care (current) use of insulin ursodiol 300 mg PO BID 56 caps 11RF sennosides (senna) 8.6 mg PO BID 56 tabs 11RF K59.00 - Constipation, unspecified metoprolol succinate ER Do not crush/chew 25 mg PO BEDTIME 28 days 28 tabs 11RF I10 - Essential (primary) hypertension Coding Level of Care Code Est Pt Level 3 (33013) Diagnoses Type 2 diabetes mellitus with diabetic polyneuropathy, without long-term current use of insulin E11.42 Diabetes mellitus meterman insulin use: without shelter use Obesity (BMI 30.0-34.9) E66.9
== END 2023-07-05 16:03 | disposition home or self-care (01) ==
PROVIDERS: PCP Hospitalist; Visit Provider Nurse Practitioner Family
DX: E11.42 Type 2 diabetes mellitus with diabetic polyneuropathy (principal); E66.9 Obesity, unspecified; Z68.30 Body mass index [BMI] 30.0-30.9, adult; Z79.4 Long term (current) use of insulin
CPT/HCPCS: 83036; 99214

== ENCOUNTER 2023-09-09 12:56 | Emergency (ER) | payer OTHER, SELFPAY ==
--- NOTE | ~2023-09-09 | CT_ITS ---
EXAMINATION: CT ABDOMEN AND PELVIS WITHOUT CONTRAST CLINICAL INFORMATION: Right pelvic pain. COMPARISON: 07/02/2023 TECHNIQUE: Multidetector volumetric imaging was performed from the superior aspect of the liver through the pubic symphysis. Sagittal and coronal reformatted images were obtained on the technologist's workstation. This CT examination was performed using dose optimization techniques as appropriate, variously including the following: *Automated exposure control *Adjustment of mA and/or kV according to patient size (this includes techniques or standardized protocols for targeted exams where dose is matched to indication/reason for exam; i.e. extremities or head) *Use of iterative reconstruction technique DLP: 520 mGy-cm FINDINGS: LUNG BASES: There is minimal scarring at the lung bases. LIVER, GALLBLADDER, AND BILIARY TREE: The liver is normal in size, shape, and attenuation. No focal hepatic lesion or biliary ductal dilatation is present. Multiple gallstones are noted within a decompressed gallbladder. PANCREAS: Unremarkable. SPLEEN: Unremarkable. ADRENAL GLANDS: Unremarkable. KIDNEYS AND URETERS: The kidneys are normal in size, shape, and attenuation. No hydronephrosis, hydroureter, or calculi seen. No perinephric stranding. There is a subcentimeter hyperdensity mid pole left kidney similar to previous. BLADDER: Unremarkable. GASTROINTESTINAL TRACT: The small and large bowel are unremarkable. The appendix is unremarkable. ABDOMINAL WALL: A hernia repair mesh is noted. LYMPH NODES: Normal. VASCULAR: IVC filter is noted in a stable position. There is atherosclerotic plaque of the abdominal aorta and proximal branches PELVIC VISCERA: Unremarkable. OSSEOUS STRUCTURES: There is mild diffuse thoracolumbar disc degenerative change. CT/CT abdomen pelvis wo IV con IMPRESSION: Cholelithiasis. No renal calculi or renal collecting system obstructive change. No acute intra-abdominal process seen. Fleischner guidelines were followed.
[2023-09-09 14:15] VITALS: BP 144/61; PULSE 79; RESP 18; TEMP 36.8; O2SAT 93; BMI 27.4
--- NOTE | 2023-09-09 14:17 | ED.GENADULT ---
HPI - General Adult General Chief complaint: Urogenital-Male Stated complaint: Groin/Testicle pain Time Seen by Provider: 09/09/23 21:08 Source: patient and other (Computer Customer Support Specialist) Mode of arrival: ambulatory History of Present Illness HPI narrative: Patient is 18 years old with history of CVA with left-sided weakness, hypertension diabetes CKD came from the shelter for pain in the right groin area for last 4 days off and on gets worse on lying down no swelling , no testicular pain no urinary complaints no fever no chills Related Data Home Medications Medication Instructions Recorded Confirmed lorazepam 0.5 mg tablet (Ativan) 0.5 mg PO DAILY PRN Anxiety 07/24/20 06/28/23 risperidone 0.5 mg tablet 0.5 mg PO BID 07/24/20 06/28/23 (Risperdal) glucose 5 % oral solution 15 g PO Q15M PRN hypoglycemia 12/28/22 06/28/23 nifedipine 30 mg tablet,extended 30 mg PO DAILY 12/28/22 06/28/23 release 24 hr (Procardia XL) blood-glucose meter ([employer] 05/17/23 06/28/23 Lite Meter kit) fluoxetine 20 mg capsule 40 mg PO DAILY 05/17/23 06/28/23 trazodone 50 mg tablet 100 mg PO BEDTIME 05/17/23 06/28/23 aluminum-mag hydroxide-simethicone 7.5 ml PO QID PRN 09/02/23 400 mg-400 mg-40 mg/5 mL oral susp (Mylanta Maximum Strength) Previous Rx's Medication Instructions Recorded miscellaneous medical supply #1 ea 07/11/21 miscellaneous medical supply See Rx Instructions miscellaneous 05/14/22 .COMPLEX #1 ea acetaminophen 325 mg tablet 650 mg (2 x 325 mg) PO Q6H PRN 09/23/22 (Tylenol) temp, headache or general discomfort 30 days #120 tabs ergocalciferol (vitamin D2) 1,250 50,000 unit PO QWEEK 28 days #4 09/23/22 mcg (50,000 unit) capsule (Vitamin caps D2) lactulose 10 gram/15 mL oral 30 ml PO .q72 h PRN constipation 09/23/22 solution (Enulose) #473 mL hydralazine 50 mg tablet 50 mg PO TID 90 days #270 tabs 11/05/22 pen needle, diabetic 31 gauge x 1 ea miscellaneous TID 28 days #84 11/20/2202/16 (Easy Touch) ea blood sugar diagnostic (FreeStyle #100 ea 12/23/22 Lite Strips) losartan 50 mg tablet 75 mg (1.5 x 50 mg) PO DAILY 1 02/16/23 month #45 tabs atorvastatin 80 mg tablet 80 mg PO BEDTIME 90 days #90 tabs 03/30/23 empagliflozin 10 mg tablet 10 mg PO QAM #28 tabs 04/12/23 (Jardiance) ascorbic acid (vitamin C) 500 mg 500 mg PO BID 3 months #180 tabs 05/10/23 tablet tramadol 50 mg tablet 50 mg PO BID PRN pain 3 days #6 05/17/23 tabs dulaglutide 4.5 mg/0.5 mL 4.5 mg (0.5 mL) subcut QWEEK 28 05/29/23 subcutaneous pen injector days #2 mL (Trulicity) multivitamin,tx-minerals 1 cap PO DAILY #90 caps 06/04/23 (Multi-Vitamin HP/Minerals capsule) apixaban 5 mg tablet (Eliquis) 5 mg PO BID #56 tabs 07/05/23 aspirin 81 mg tablet,delayed 81 mg PO QAM 90 days #90 tabs 07/05/23 release insulin degludec 200 unit/mL (3 46 unit (0.23 mL) subcut DAILY 30 07/05/23 mL) subcutaneous pen (Tresiba days #6.9 mL FlexTouch U-200 insulin) metoprolol succinate 25 mg 25 mg PO BEDTIME 28 days #28 tabs 07/05/23 tablet,extended release 24 hr polyethylene glycol 3350 17 17 g PO BID #1,020 grams 07/05/23 gram/dose oral powder sennosides 8.6 mg tablet (senna) 8.6 mg PO BID #56 tabs 07/05/23 tamsulosin 0.4 mg capsule 0.4 mg PO BEDTIME #90 caps 07/05/23 ursodiol 300 mg capsule 300 mg PO BID #56 caps 07/05/23 lancets 26 gauge (Easy Touch #100 ea 08/09/23 Safety Lancets) aluminum-mag hydroxide-simethicone 7.5 ml PO Q6H PRN indigestion #355 09/02/23 400 mg-400 mg-40 mg/5 mL oral susp mL Allergies Allergy/AdvReac Type Severity Reaction Status Date / Time amlodipine [From [facility]] Allergy Severe due to Verified 07/05/23 15:09 poor renal function ibuprofen Allergy Severe 2/2 renal Verified 07/05/23 15:09 function Review of Systems Review of Systems: Yes all other systems are reviewed and are negative [facility] Past Medical History Medical History Skin lesion Squamous cell carcinoma of skin Encephalopathy Cerebrovascular accident Hypoglycemia unawareness associated with type 2 diabetes mellitus Diabetes type 2, uncontrolled Type 2 diabetes mellitus with diabetic polyneuropathy Essential hypertension Epigastric pain Skin cancer Postoperative bleeding from incision Skin lesion Stroke Type 2 diabetes mellitus with chronic kidney disease Chronic kidney disease, stage 3 Aphagia Unsteady gait Anemia Hypertensive chronic kidney disease with stage 1 through stage 4 chronic kidney disease, or unspecified chronic kidney disease CKD (chronic kidney disease) Hearing loss Preglaucoma Vascular device, implant, or graft complication Bronchitis HTN (hypertension) Hyperlipidemia Hyperlipidemia Vitamin D deficiency Vitamin D deficiency Constipation GERD (gastroesophageal reflux disease) Diabetes Hemiplegia Surgical History History of removal of cyst (~02/09/22) Hx of cataract surgery History of surgical removal of skin lesion History of exploratory laparotomy Family History Family History Father Myocardial infarction Mother Throat cancer Diabetes Family/Other FH: mental illness Brother In good health Sister In good health Sister In good health Daughter In good health Social History Social History 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 Household Members Other:: shelter Housing: House Do you presently have visiting nurse or other home services: Yes Alcohol intake: never Patient Tobacco Use Status: Former Tobacco user Tobacco use type: Cigarette Cigarette Packs Per Day: 2 Cigarettes Per Day: 40.0 Years Smoked: 16 e-Cigarette/Vaping Use: Never Used Second Hand Smoke Exposure: No Advance Directives: Yes Advance Directives Information Provided: No Advance Directives on File: No Advance Directives Date on File: 12/02/20 service: No Current occupational status: disabled Current occupational exposures/hazards: No Cognitive needs: No Hearing needs: No Vision needs: No Physical Exam ED Vital Signs: Vital Signs - 24 hr 09/09/23 14:15 09/09/23 21:30 Temperature 98.2 F 98.4 F Pulse Rate 79 63 Respiratory Rate 18 14 Blood Pressure 144/61 H 144/73 H Pulse Oximetry 93 97 Oxygen Delivery Method Room Air Room Air BMI result Body Mass Index 27.4 Appearance: Alert. Oriented X3. No acute distress. ENT: Pharynx normal. Oral Mucosa moist Neck: Normal inspection. Neck supple. CVS: Normal heart rate and rhythm. Pulses normal. Respiratory: No respiratory distress. Equal air entry bilateral, no wheezing/rales/rhonchi Abdomen: Soft and nontender. Bowel sounds are present, no mass palpable, no CVA tenderness : Normal testicle nontender normal epididymis nontender soft tissue swelling in the right inguinal area? Fat containing hernia on right side Skin: Skin warm and dry. Normal skin color. Normal skin turgor. Extremities: No lower extremity edema. No calf tenderness Neuro: Oriented X 3. Left-sided residual weakness Course Course Course Narrative: This is an RME: Additional HPI, ROS, PE not included below will be deferred to primary provider. This is a 29-pmsq-lpe-male, with a hx of CKD, constipation, diabetes, GERD, HLD, presenting to the emergency department, accompanied by visiting nurses, for evaluation of right groin/right upper leg pain x3 days. States that the pain is intermittent. No testicular swelling or pain. Also endorsing urea and urinary frequency. Plan: Labs, UA Medical Decision Making Medical Decision Making [facility] Narrative: Patient with right groin pain clinically has small fat containing hernia will do CT scan as requested by the staff. Patient signed out to Dr. Brennan pending CT scan report Differential Diagnosis Differential Diagnoses: The differential diagnosis associated with the presentation includes Inguinal hernia/epididymitis/hydrocele Lab Data [facility] Lab Attestation statement: I reviewed the patient's lab results. 09/09/23 16:00 09/09/23 16:00 Labs: Lab Results 09/09/23 09/09/23 Range/Units 16:00 16:08 WBC 11.4 H (4.8-10.8) X10*3/uL RBC 4.33 L (4.60-5.80) X10*6/uL Hgb 12.4 L (14.0-18.0) g/dl Hct 37.5 L (42.0-52.0) % MCV 86.6 (80.0-98.0) fL MCH 28.6 (27.0-33.0) pg MCHC 33.1 (31.0-36.0) g/dl RDW 12.5 (11.0-16.0) % Plt Count 236 (160-400) X10*3/uL MPV 10.9 (9.4-12.4) fL Immature Gran % (Auto) 0.3 (0.0-0.4) % Neut % (Auto) 67.8 (45-73) % Lymph % (Auto) 21.9 (20-40) % Steele % (Auto) 7.4 (2-11) % Eos % (Auto) 2.2 (0-4) % Baso % (Auto) 0.4 (0-2) % Lymph # (Auto) 2.5 (1.2-4.9) X10*3/uL Steele # (Auto) 0.9 (0.1-1.2) X10*3/uL Eos # (Auto) 0.3 (0.0-0.4) X10*3/uL Baso # (Auto) 0.1 (0.0-0.2) X10*3/uL Abs Immat Gran (auto) 0.04 H (0.00-0.03) X10*3/uL Absolute Neuts (auto) 7.7 (2.0-8.3) x10*3/uL Absolute Nucleated RBC 0.000 (0.0-0.012) X10*3/uL Nucleated RBC % (auto) 0.0 (0.0-0.2) /100WBC Sodium 137 (135-145) mmol/L Potassium 5.0 (3.3-5.1) mmol/L Chloride 104 (96-108) mmol/L Carbon Dioxide 26 (22-29) mmol/L Anion Gap 12 (12-20) BUN 28 H (9-16) mg/dL Creatinine 2.48 H (0.5-1.4) mg/dL Estim Creat Clear Calc 30.2 Estimated GFR 27 Random Glucose 351 H* (60-115) mg/dL Calcium 9.5 (8.4-10.2) mg/dL Total Bilirubin 0.2 (0.0-1.0) mg/dL Direct Bilirubin < 0.2 (0.0-0.5) mg/dL AST 13 (5-37) U/L ALT 12 (0-40) U/L Alkaline Phosphatase 79 (39-117) U/L Total Protein 7.8 (6.5-8.0) g/dL Albumin 4.2 (3.5-5.0) g/dL Lipase 34 (8-78) U/L Urine Color Yellow Urine Appearance Clear Urine pH 5.5 (5.0-9.0) Ur Specific Wanda 1.020 (1.005-1.025) Urine Protein 30 (1+) H (Neg-Trace) mg/dL Urine Glucose (UA) >=1000 H (Negative) mg/dL Urine Ketones Negative (Negative) mg/dL Urine Blood Negative (Negative) Urine Nitrite Negative (Negative) Ur Leukocyte Esterase Negative (Negative) Urine RBC 0-2 (0-2) /HPF Urine WBC 0-5 (0-5) /HPF Ur Squamous Epith Cells 0-2 (0-2) /HPF Urine Bacteria None Seen (None Seen) Hyaline Casts 0-2 (0-2) /LPF Discharge Plan Discharge Clinical Impression: Inguinal hernia, right Patient Disposition: Home, Self-Care Instructions: Inguinal Hernia (ED) Additional Instructions: You have a very small fat containing right inguinal hernia which does not require any treatment at this time Report to the ER/PCP if increase in size of the hernia/pain Avoid lifting any heavy weight Prescriptions: No Action acetaminophen [Tylenol] 325 mg tablet 650 mg PO Q6H PRN (Reason: temp, headache or general discomfort) 30 Days Qty: 120 2RF Rx Instructions: Take two 325mg tabs every 6 hours as needed for fever over 101, headache, or general discomfort. Contact PCP if symptoms persist greater than 24 hours. lactulose [Enulose] 10 gram/15 mL solution 30 ml PO .q72 h PRN (Reason: constipation) Qty: 473 3RF Rx Instructions: Take every 3 days or every 72 hours as needed. If no effect after 24 hours from dose, contact PCP ergocalciferol (vitamin D2) [Vitamin D2] 1,250 mcg (50,000 unit) capsule 50,000 unit PO QWEEK 28 Days Qty: 4 11RF Rx Instructions: Every week on Wednesday hydralazine 50 mg tablet 50 mg PO TID 90 Days Qty: 270 2RF Protocol: Hold for SBP< HOLD for SBP < : 110 pen needle, diabetic [Easy Touch] 31 gauge x 5/16 needle 1 ea miscellaneous TID 28 Days Qty: 84 11RF (DME) FreeStyle Lite Strips Strip See Rx Instructions .ROUTE .COMPLEX Qty: 100 11RF Dose Instruction: USE TO TEST BLOOD SUGAR FOUR TIMES A DAY Rx Instructions: USE TO TEST BLOOD SUGAR FOUR TIMES A DAY losartan 50 mg tablet 75 mg PO DAILY 30 Days Qty: 45 10RF atorvastatin 80 mg tablet 80 mg PO BEDTIME 90 Days Qty: 90 3RF Rx Instructions: replaces simvastatin 40 mg qhs Jardiance 10 mg tablet 10 mg PO QAM Qty: 28 6RF ascorbic acid (vitamin C) 500 mg tablet 500 mg PO BID 90 Days Qty: 180 3RF Trulicity 4.5 mg/0.5 mL pen injector 4.5 mg subcut QWEEK 28 Days Qty: 2 6RF Rx Instructions: Report any blood sugar < 70 Multi-Vitamin HP/Minerals Capsule 1 cap PO DAILY Qty: 90 1RF Rx Instructions: take for supplement daily with food (DME) lancets [Easy Touch Safety Lancets] 26 gauge misc See Rx Instructions .ROUTE .COMPLEX Qty: 100 11RF Dose Instruction: USE 2-3 TIMES A DAY DIRECTED FOR BLOOD GLUCOSE MONITORING Rx Instructions: USE 2-3 TIMES A DAY DIRECTED FOR BLOOD GLUCOSE MONITORING alum-mag hydroxide-simeth [Mylanta Maximum Strength] 400-400-40 mg/5 mL suspension 7.5 ml PO QID PRN alum-mag hydroxide-simeth 400-400-40 mg/5 mL suspension 7.5 ml PO Q6H PRN (Reason: indigestion) Qty: 355 5RF (DME) miscellaneous medical supply Misc See Rx Instructions .ROUTE .MEDSUPPLY Qty: 1 0RF Rx Instructions: R AFO, Daily As directed, 999 days. Disp #1 risperidone [Risperdal] 0.5 mg tablet 0.5 mg PO BID lorazepam [Ativan] 0.5 mg tablet 0.5 mg PO DAILY PRN (Reason: Anxiety) trazodone 50 mg tablet 100 mg PO BEDTIME fluoxetine 20 mg capsule 40 mg PO DAILY miscellaneous medical supply Misc See Rx Instructions miscellaneous .COMPLEX Qty: 1 1RF Rx Instructions: Right lateral sole wedge as directed; (DME) blood-glucose meter [FreeStyle Lite Meter] Kit See Rx Instructions .Route Rx Instructions: As directed tramadol 50 mg tablet 50 mg PO BID PRN (Reason: pain) 3 Days Qty: 6 0RF aspirin 81 mg tablet,delayed release (DR/EC) 81 mg PO QAM 90 Days Qty: 90 3RF Rx Instructions: Do not crush/chew Eliquis 5 mg tablet 5 mg PO BID Qty: 56 11RF Rx Instructions: Report any excessive bleeding tamsulosin 0.4 mg capsule 0.4 mg PO BEDTIME Qty: 90 3RF ursodiol 300 mg capsule 300 mg PO BID Qty: 56 11RF sennosides [senna] 8.6 mg tablet 8.6 mg PO BID Qty: 56 11RF metoprolol succinate 25 mg tablet extended release 24 hr 25 mg PO BEDTIME 28 Days Qty: 28 11RF Rx Instructions: Do not crush/chew polyethylene glycol 3350 17 gram/dose powder 17 g PO BID Qty: 1020 8RF Tresiba FlexTouch U-200 200 unit/mL (3 mL) insulin pen 46 unit subcut DAILY 30 Days Qty: 6.9 5RF Rx Instructions: Report any blood sugars <70 glucose 5 % solution 15 g PO Q15M PRN (Reason: hypoglycemia) nifedipine [Procardia XL] 30 mg tablet extended release 24hr 30 mg PO DAILY
--- OUTSIDE RECORDS SUMMARY | 2023-09-09 16:10 | XMS_ITS | Continuity of Care Document ---
Author Name Unknown Organization [facility] Address [address] [place] [address] [address] [place] [address]- Care Team Providers Care Carpentry Supervisor Name Role Phone Sherif REEVES, Daren Deras Primary Care Physician Encounter [facility] Date(s): 08/07/20 - 10/03/20 [facility] [address] [place], [place] [address] Attending Physician: Humera Lew MD Referring Physician: Yeni HENSON, Ankush Patel Allergies, Adverse Reactions, Alerts Substance Reaction Severity Status NKA Active Medications acetaminophen 325 mg oral tablet 2 tablet, By Mouth, Every 4 hours, PRN for fever, # 120 tablet, 0 Refills, Maintenance, Tablet Start Date: 08/01/11 Status: Ordered aspirin 81 mg oral enteric coated tablet By Mouth, Daily, 0 Refills, EC Tablet Start Date: 08/03/11 Status: Ordered bisacodyl 10 mg rectal suppository 1 supp, Rectally, Daily, PRN for constipation, if senna inneffective, # 10 supp, 0 Refills, Maintenance, Suppository Start Date: 08/01/11 Status: Ordered Carafate 1 gm oral tablet 1 Gm, 1, tablet, By Mouth, 4 times a day, # 120 tablet, Refills 3, Tot. Refills 3, Maintenance, 08/06/20 9:30:00 EST, Route to Pharmacy Electronically, [id number], 167, cm, 08/06/20 9:19:00 EST, Height Start Date: 08/06/20 Status: Ordered Fleet Enema 1 dose, Rectally, Daily, if suppository is inefective, 0 Refills, Maintenance Start Date: 08/01/11 Status: Ordered glyburide 5 mg oral tablet 1 tablet, By Mouth, 2 times a day, # 90 tablet, 0 Refills, Maintenance, Tablet Start Date: 08/01/11 Status: Ordered Humulin R human recombinant 100 u/ml injectable injection Subcutaneous Infusion, dose according rohan, 0 Refills, Maintenance Start Date: 08/01/11 Status: Ordered metformin 500 mg oral tablet 1 tablet, By Mouth, Daily, # 180 tablet, 0 Refills, Maintenance, Tablet Start Date: 08/01/11 Status: Ordered MiraLax oral powder for reconstitution = 17 Gm, By Mouth, 2 times a day, for 30 days, # 527 Gm, 3 Refills, Acute 12/04/20 9:30:00 EST, 08/06/20 9:30:00 EST, [facility], 17 Gm By Mouth 2 times a day,x30 days, 167, cm, 08/06/20 9:19:00 EST, Height Start Date: 08/06/20 Stop Date: 12/04/20 Status: Ordered MiraLax Powder = 17 Gm, By Mouth, Every other day, (dissolve in 8oz of water or juice), 0 Refills, Maintenance Start Date: 08/01/11 Status: Ordered Mylanta Liquid 30 mL, By Mouth, Every 4 hours, PRN as needed to control stomach acid, 0 Refills, Maintenance Start Date: 08/01/11 Status: Ordered oxcarbazepine 300 mg oral tablet 1 tablet = 300 mg, By Mouth, 2 times a day, 0 Refills, Maintenance Start Date: 08/01/11 Status: Ordered Prilosec OTC 20 mg oral enteric coated tablet 1 tablet, By Mouth, 2 times a day, # 120 tablet, 0 Refills, Maintenance, EC Tablet Start Date: 08/01/11 Status: Ordered Senna 8.6 mg oral tablet 1 tablet = 8.6 mg, By Mouth, Daily, PRN for constipation, # 100 tablet, 0 Refills, Maintenance, Tablet Start Date: 08/01/11 Status: Ordered simvastatin 40 mg oral tablet 1 tablet, By Mouth, Daily at bedtime, # 30 tablet, 0 Refills, Maintenance, Tablet Start Date: 08/01/11 Status: Ordered Venlafaxine 225 mg Oral Tablet, Extended Release 1 tablet = 225 mg, By Mouth, Daily, 0 Refills, Maintenance Start Date: 08/01/11 Status: Ordered Zyprexa 10 mg oral tablet 1 tablet, By Mouth, Daily, # 30 tablet, 0 Refills, Maintenance, Tablet Start Date: 08/01/11 Status: Ordered Zyprexa 2.5 mg oral tablet 1 tablet = 2.5 mg, By Mouth, Every 4 hours, PRN Anxiety, not to exceed two dse in 24 goourse, # 180tablet, 0 Refills, Maintenance, Tablet Start Date: 08/01/11 Status: Ordered
--- OUTSIDE RECORDS SUMMARY | 2023-09-09 16:10 | XMS_ITS | Continuity of Care Document ---
Author Name Unknown Organization [facility] Address [address] [place] [address] [address] [place] [address]- Care Team Providers Care Student Ministry Pastor Name Role Phone Sherif REEVES, Daren Deras Primary Care Physician Encounter [facility] Date(s): 10/29/20 - 01/09/21 [facility] [address] [place], [place] [address] Attending Physician: Humera Lew MD Referring Physician: Daren Groman MD Allergies, Adverse Reactions, Alerts Substance Reaction Severity [...] 08/06/20 9:30:00 EST, Route to Pharmacy Electronically, [facility]-[id number], 167, cm, 08/06/20 9:19:00 EST, Height Start [...] Tablet Start Date: 08/01/11 Status: Ordered MiraLax Powder = 17 Gm, [...]
--- OUTSIDE RECORDS SUMMARY | 2023-09-09 16:10 | XMS_ITS | Continuity of Care Document ---
Author Name Unknown Organization [facility] Address [address] [place] [address]- Care Team Providers Care Chair Lift Operator Name Role Phone Sherif REEVES, Daren Deras Primary Care Physician En[place] [facility] Date(s): 10/08/20 - 11/07/20 [facility] [address] [place] [address] Attending Physician: Kyle Mcbride Admitting Physician: AdmKyle benz Referring Physician: [email or web address] Allergies, Adverse Reactions, Alerts Substance Reaction Severity [...] 08/06/20 9:30:00 EST, Route to Pharmacy Electronically, [facility]-[id number], 167, cm, 08/06/20 9:19:00 EST, Height Start [...] Acute 12/04/20 9:30:00 EST, 08/06/20 9:30:00 EST, [facility], 17 Gm By Mouth 2 times a [...]
--- OUTSIDE RECORDS SUMMARY | 2023-09-09 16:10 | XMS_ITS | Continuity of Care Document ---
Author Name Unknown Organization [facility] Address [address] [place] [address] [address] [place] [address]- Care Team Providers Care Freight Rate Analyst Name Role Phone Daren Gorman MD Primary Care Physician [phone] Encounter [facility] Date(s): 09/03/20 - 10/03/[address] [place], [place] [address] Attending Physician: Admtr, Kyle Admitting Physician: Admtr, Ar8 Referring Physician: Admtr, Ar8 Allergies, Adverse Reactions, Alerts Substance Reaction Severity [...] 08/06/20 9:30:00 EST, Route to Pharmacy Electronically, [facility]-[id number], 167, cm, 08/06/20 9:19:00 EST, Height Start [...] Acute 12/04/20 9:30:00 EST, 08/06/20 9:30:00 EST, [place] [id number], 17 Gm By Mouth 2 times a [...]
--- OUTSIDE RECORDS SUMMARY | 2023-09-09 16:10 | XMS_ITS | Continuity of Care Document ---
Author Name Unknown Organization [facility] Address [address] [place] [address] [address] [place] [address]- Care Team Providers Care Control Technician Name Role Phone Daren Gorman MD Primary Care Physician [phone] [place] [facility] [place] 12/10/20 - 01/09/[address] [place], [place] [address] Attending Physician: Admtr, Kyle Admitting Physician: Admtr, [...] 08/06/20 9:30:00 EST, Route to Pharmacy Electronically, [facility]-[id number], 167, cm, 08/06/20 9:19:00 EST, Height Start [...]
--- OUTSIDE RECORDS SUMMARY | 2023-09-09 16:10 | XMS_ITS | Continuity of Care Document ---
Author Name Unknown Organization [facility] Address [address] [place] [address]- Care Team Providers Care Merchandise Carrier Name Role Phone Daren Gorman MD Primary Care Physician En[place] [facility] Date(s): 08/06/20 - 11/07/20 [facility] [address] [place] [address]- Attending Physician: Narciso Pan MD Admitting Physician: Narciso Pan MD Referring Physician: Daren Gorman MD Allergies, Adverse Reactions, Alerts Substance Reaction [...] 08/06/20 9:30:00 EST, Route to Pharmacy Electronically, [facility]-[id number], 167, cm, 08/06/20 9:19:00 EST, Height Start [...] Acute 12/04/20 9:30:00 EST, 08/06/20 9:30:00 EST, [facility], 17 Gm By Mouth 2 times a [...]
[2023-09-09 16:14] LABS: MANUAL DIFF FLAG NO
[2023-09-09 16:15] LABS: Basophils Absolute Auto 0.1 X10*3/uL (0.0-0.2); Basophils Percent Auto 0.4 % (0-2); Eosinophils Absolute Auto 0.3 X10*3/uL (0.0-0.4); Eosinophils Percent Auto 2.2 % (0-4); Hematocrit 37.5 % (42.0-52.0); Hemoglobin 12.4 g/dl (14.0-18.0); Imm Gran Abs Auto 0.04 X10*3/uL (0.00-0.03); Imm Gran Pct Auto 0.3 % (0.0-0.4); Lymphocytes Absolute Auto 2.5 X10*3/uL (1.2-4.9); Lymphocytes Percent Auto 21.9 % (20-40); Mean Corpuscular HGB Conc 33.1 g/dl (31.0-36.0); Mean Corpuscular Hemoglobin 28.6 pg (27.0-33.0); Mean Corpuscular Volume 86.6 fL (80.0-98.0); Mean Platelet Volume 10.9 fL (9.4-12.4); Monocytes Absolute Auto 0.9 X10*3/uL (0.1-1.2); Monocytes Percent Auto 7.4 % (2-11); Neutrophils Absolute Auto 7.7 x10*3/uL (2.0-8.3); Neutrophils Percent Auto 67.8 % (45-73); Platelet Count 236 X10*3/uL (160-400); Red Blood Count 4.33 X10*6/uL (4.60-5.80); Red Cell Distribution Width 12.5 % (11.0-16.0); White Blood Count 11.4 X10*3/uL (4.8-10.8)
[2023-09-09 16:22] LABS: Appearance Urine Clear; Color Urine Yellow; Glucose Urine UA >=1000 mg/dL (Negative); Leukocyte Esterase Urine Negative (Negative); Nitrite Urine Negative (Negative); PH 5.5 (5.0-9.0); UMIC TRIGGER UACC YES; Urine Blood Negative (Negative); Urine Ketones Negative (Negative); Urine Protein 30 (1+) mg/dL (Neg-Trace)
[2023-09-09 16:24] LABS: Bacteria Urine None Seen (None Seen); Hyaline Casts Urine 0-2 /LPF (0-2); RBC Urine 0-2 /HPF (0-2); Squamous Epithelial Cell Urine 0-2 /HPF (0-2); WBC Urine 0-5 /HPF (0-5)
[2023-09-09 16:31] LABS: Alanine Aminotransferase 12 U/L (0-40); Albumin Level 4.2 g/dL (3.5-5.0); Alkaline Phosphatase 79 U/L (39-117); Anion Gap 12 (12-20); Aspartate Amino Transferase 13 U/L (5-37); Bilirubin Direct < 0.2 mg/dL (0.0-0.5); Bilirubin Total 0.2 mg/dL (0.0-1.0); Blood Urea Nitrogen 28 mg/dL (9-16); Calcium 9.5 mg/dL (8.4-10.2); Carbon Dioxide 26 mmol/L (22-29); Chloride 104 mmol/L (96-108); Creatinine Clr Calc Pharmacy 30.2; Estimated Glomerular Filt Rate 27; Glucose Random 351 mg/dL (60-115); Lipase 34 U/L (8-78); Sodium 137 mmol/L (135-145); Total Protein 7.8 g/dL (6.5-8.0)
[2023-09-09 21:30] VITALS: BP 144/73; PULSE 63; RESP 14; TEMP 36.9; O2SAT 97
[2023-09-09 21:49] LABS: Glucose, Whole Blood 234 mg/dL (60-115)
[2023-09-09 22:00] VITALS: BP 140/73; PULSE 78; RESP 18; TEMP 36.7; O2SAT 97
[2023-09-10 00:25] VITALS: BP 138/82; PULSE 79; RESP 16; TEMP 36.7; O2SAT 98
== END 2023-09-10 00:29 | disposition home or self-care (01) ==
PROVIDERS: Physician Assistant Medical; Emergency Provider Internal Medicine; PCP Hospitalist
DX: R10.31 Right lower quadrant pain (principal); E11.22 Type 2 diabetes mellitus with diabetic chronic kidney disease; I12.9 Hypertensive chronic kidney disease with stage 1 through stage 4 chronic kidney disease, or unspecified chronic kidney disease; N18.30 Chronic kidney disease, stage 3 unspecified; E78.5 Hyperlipidemia, unspecified; I69.354 Hemiplegia and hemiparesis following cerebral infarction affecting left non-dominant side; Z86.718 Personal history of other venous thrombosis and embolism; Z87.891 Personal history of nicotine dependence; Z79.4 Long term (current) use of insulin; Z79.82 Long term (current) use of aspirin; Z79.02 Long term (current) use of antithrombotics/antiplatelets; Z79.01 Long term (current) use of anticoagulants; Z79.899 Other long term (current) drug therapy
CPT/HCPCS: 36415; 74176; 80048; 80076; 81001; 82947; 83690; 85025; 99284

== ENCOUNTER 2023-09-15 15:43 | Outpatient (AMB) | payer OTHER, SELFPAY ==
[2023-09-15 15:47] VITALS: BP 128/74; PULSE 61; RESP 13; TEMP 36.3; O2SAT 99; BMI 24.9
--- NOTE | 2023-09-15 15:47 | MHC.PC.OV ---
Vital Signs 09/15/23 15:47 Height 5 ft 8 in Weight 164 lb BMI 24.9 BP 128/74 Blood Pressure Location Rt brachial Position Sitting Respiration 13 Pulse 61 Pulse Source Pulse Oximeter Temp 97.3 F Temp Source Temporal Artery Scan Pulse Oximetry (%) 99 Oxygen Delivery Method Room Air Intake Visit Reasons: [facility] ed 09/10/23 for Testicle pain Intake Note: Patient states that he would like a script sent for Vitamin D2 sent over. Patient would also like a new script for Acetaminophen and Enulose due to script expiring soon. Bicycle Taxi Driver Required: No Accompanied by: Staff Allergies amlodipine [From [facility]] Allergy (Severe, Verified 09/15/23 16:07) due to poor renal function ibuprofen Allergy (Severe, Verified 09/15/23 16:07) 2/2 renal function Tobacco use date assessed: 09/15/23 Dental Screening Dental Screen Date: 09/15/23 Did you have a dental visit in the last 12 months?: Yes Did you have a dental problem in the last 6 months where you did not have access to dental care?: No Was dental information given to patient?: Patient has dentist HPI HPI Comments History of Present Illness Details 63-year-old [place]-speaking male, from a prison, presents for follow-up visit. He is accompanied by 2 prison staff She was evaluated at [facility] on 09/09/2023 for intermittent right groin/upper leg pain. Labs were unrevealing, CT was reassuring. He was diagnosed with right inguinal hernia which did not require treatment. He was advised to avoid heavy lifting He offers no complaints and denies acute symptoms at this time [facility] Medical History Skin lesion Squamous cell carcinoma of skin Encephalopathy Cerebrovascular accident Hypoglycemia unawareness associated with type 2 diabetes mellitus Diabetes type 2, uncontrolled Type 2 diabetes mellitus with diabetic polyneuropathy Essential hypertension Epigastric pain Skin cancer Postoperative bleeding from incision Skin lesion Stroke Type 2 diabetes mellitus with chronic kidney disease Chronic kidney disease, stage 3 Aphagia Unsteady gait Anemia Hypertensive chronic kidney disease with stage 1 through stage 4 chronic kidney disease, or unspecified chronic kidney disease CKD (chronic kidney disease) Hearing loss Preglaucoma Vascular device, implant, or graft complication Bronchitis HTN (hypertension) Hyperlipidemia Hyperlipidemia Vitamin D deficiency Vitamin D deficiency Constipation GERD (gastroesophageal reflux disease) Diabetes Hemiplegia Surgical History History of removal of cyst (~02/09/22) Hx of cataract surgery History of surgical removal of skin lesion History of exploratory laparotomy Family History Father Myocardial infarction Mother Throat cancer Diabetes Family/Other FH: mental illness Brother In good health Sister In good health Sister In good health Daughter In good health Social History 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 Household Members Other:: prison Housing: House Do you presently have visiting nurse or other home services: Yes Alcohol intake: never Patient Tobacco Use Status: Former Tobacco user Tobacco use type: Cigarette Cigarette Packs Per Day: 2 Cigarettes Per Day: 40.0 Years Smoked: 16 e-Cigarette/Vaping Use: Never Used Second Hand Smoke Exposure: No Advance Directives Date on File: 12/02/20 service: No Current occupational status: disabled Current occupational exposures/hazards: No Cognitive needs: No Hearing needs: No Vision needs: No Questionnaire Thrive Questionnaire Date Thrive assessed: 07/23/21 PARRISH-7 AMB Questionnaire PARRISH-7 Date PARRISH - 7 assessed: 07/23/21 Source: Developed by Drs. Amari Ortega, Chaparrita Mg, Domingo Cummings and colleagues, with an educational anthony from [employer] Review of Systems Const Details: Const Denies chills, Denies fatigue, Denies fever(s), Denies headache(s) and Denies weakness ENT Denies dizziness and Denies headache(s) Card Denies chest pain, Denies lightheadedness, Denies dyspnea and Denies other (Palpitations) Resp Denies cough, Denies dyspnea, Denies wheezing and Denies other ( shortness of breath) GI Denies abdominal pain, Denies melena, Denies hematochezia, Denies change in bowel habits, Denies dyspepsia and Denies nausea Denies hematuria and Denies dysuria Musc Denies abnormal gait, Denies myalgias, Denies arthralgias, Denies numbness and Denies tingling Skin/Breast Denies rash, Denies unusual bruising and Denies wounds Neuro Denies abnormal gait, Denies dizziness, Denies headache(s), Denies memory loss, Denies numbness, Denies Sensory deficit (Neuro), Denies tingling and Denies weakness Psych Denies anxiety, Denies depression, Denies memory loss Endo Denies cold intolerance, Denies fatigue, Denies heat intolerance, Denies polydipsia and Denies polyuria Aller/Immun Denies wheezing Physical exam (Primary Care) Vital Signs: Last Vital Signs Temp 97.3 F 09/15/23 15:47 Pulse 61 09/15/23 15:47 Resp 13 09/15/23 15:47 BP 128/74 09/15/23 15:47 Pulse Ox 99 09/15/23 15:47 Oxygen Delivery Method Room Air 09/15/23 15:47 BMI result Body Mass Index 24.9 Tobacco/Smoking Status: Tobacco use Status Tobacco use date assessed 11/16/22 07/05/23 14:56 Patient Tobacco Use Status Former Tobacco user 07/05/23 14:56 Tobacco use type Cigarette 07/05/23 14:56 e-Cigarette/Vaping Use Never Used 07/05/23 15:16 Thrive Assessment: Date of Thrive Assessment Date Thrive assessed 07/23/21 07/05/23 14:56 Const Other: General: no acute distress and well developed Nutritional Appearance: well nourished Orientation/consciousness: patient oriented x3 HENMT Head: Yes normocephalic and Yes atraumatic Eyes General: appearance normal, both eyes and all related structures Pupils: Equal, round and reactive pupils present EOM: EOMs intact bilaterally Resp Effort & Inspection: normal respiratory effort Auscultation: clear to auscultation bilaterally Cardio Rate: regular rate Rhythm: regular rhythm Heart sounds: S1 normal heart sound present, S2 normal heart sound present, no gallops, no murmurs and no rubs GI Palpation (GI): No Abdominal aortic bruit present, Soft to palpation, nontender, No hepatosplenomegaly present and No Rebound tenderness present Auscultation: normal bowel sounds General: Yes no CVA tenderness Back/Spine/Pelvis Back: no CVA tenderness Cervical Spine: cervical ROM normal and No Cervical spine tenderness Thoracic/Lumbar Spine: thoraco-lumbar ROM normal, No pain with thoraco-lumbar ROM, No thoracic spinal tenderness and No lumbar spinal tenderness Extrem General: Yes normal to inspection, No edema and No calf tenderness Skin General: warm and dry. Normal skin color. Normal skin turgor Lesions: no lesions Rashes: no rashes Trauma: no lacerations or abrasions Wounds: no wounds Nails: normal Neuro General: patient oriented x3, gait normal and no focal neuro deficit Cranial nerves: Yes Equal, round and reactive pupils present Cognition (Neuro): normal cognition Gait exam (Neuro): Normal gait present Sensory Exam: No Sensory deficit (Neuro) Psych Appearance: grossly normal Affect: normal affect Attitude: cooperative Thought process: Normal thought process present Assessment and Plan Assessment & Plan (1) Right inguinal pain: Code(s): R10.31 - Right lower quadrant pain Plan: No acute symptoms at this time Tylenol as prescribed Warm/cold compresses encouraged He has a follow-up appointment for transfer of care later this month Follow-up with worsening or new symptoms Verbalized understanding and agreed with treatment plan Interpretation by prison staff per patient's preference Orders: Orders Vitamin D 25-OH Total Today E55.9 - Vitamin D deficiency, unspecified Medications: Refilled acetaminophen (Tylenol) Take two 325mg tabs every 6 hours as needed for fever over 101, headache, or general discomfort. Contact PCP if symptoms persist greater than 24 hours. 650 mg (2 x 325 mg) PO Q6H 30 days PRN 120 tabs 2RF temp, headache or general discomfort lactulose (Enulose) Take every 3 days or every 72 hours as needed. If no effect after 24 hours from dose, contact PCP 30 mL PO .q72 h PRN 473 mL 3RF constipation Coding Level of Care Code Est Pt Level 3 (16576) Diagnoses Right inguinal pain R10.31
== END 2023-09-15 16:28 | disposition home or self-care (01) ==
PROVIDERS: PCP Hospitalist; Visit Provider Nurse Practitioner Family
DX: R10.31 Right lower quadrant pain (principal)
CPT/HCPCS: 99213

== ENCOUNTER 2023-09-23 06:51 | Outpatient (REF) | payer OTHER, SELFPAY ==
[2023-09-23 08:10] LABS: Vitamin D 25-OH Total 60.1 ng/mL (>30)
== END 2023-09-23 06:52 | disposition home or self-care (01) ==
LOC: HO.LAB 06:51
PROVIDERS: PCP Nurse Practitioner Family; Visit Provider Nurse Practitioner Family
DX: E55.9 Vitamin D deficiency, unspecified (principal)
CPT/HCPCS: 36415; 82306

== ENCOUNTER 2023-09-29 12:31 | Outpatient (AMB) | payer OTHER, SELFPAY ==
--- NOTE | 2023-09-29 12:37 | MHC.PC.OV ---
Vital Signs 09/29/23 12:39 09/29/23 13:15 Height 5 ft 8 in Weight 188 lb 6 oz BMI 28.6 BP 146/68 H 114/60 Blood Pressure Location Rt brachial Lt brachial Position Sitting Sitting Respiration 13 Pulse 78 Pulse Source Pulse Oximeter Temp 97.6 F Temp Source Temporal Artery Scan Pulse Oximetry (%) 99 Oxygen Delivery Method Room Air Intake Visit Reasons: ARTIE from edith HTN and dm Intake Note: lay out worker states that a new script for Acetiminophen and Enulose need to be sent due to medication script expiring on 09/23/23. They are unable to refill due to that reason. Vacuum Frame Operator Required: No Accompanied by: painter helper sign Allergies amlodipine [From [facility]] Allergy (Severe, Verified 09/29/23 12:57) due to poor renal function ibuprofen Allergy (Severe, Verified 09/29/23 12:57) 2/2 renal function Medication List - Last Reconciled 09/29/23 by Nikki Naik CNP acetaminophen (Tylenol) 650 mg (2 x 325 mg) PO Q6H PRN 30 days alum-mag hydroxide-simeth 400-400-40 mg/5 mL 7.5 mL PO Q6H PRN apixaban (Eliquis) 5 mg PO BID ascorbic acid (vitamin C) 500 mg PO BID 3 months aspirin 81 mg PO QAM 90 days atorvastatin 80 mg PO BEDTIME 90 days blood sugar diagnostic (FreeStyle Lite Strips) USE TO TEST BLOOD SUGAR FOUR TIMES A DAY blood-glucose meter (FreeStyle Lite Meter kit) As directed cholecalciferol (vitamin D3) 25 mcg PO DAILY 90 days dulaglutide (Trulicity) 4.5 mg (0.5 mL) subcut QWEEK 28 days empagliflozin (Jardiance) 10 mg PO QAM fluoxetine 40 mg PO DAILY glucose 15 grams PO Q15M PRN hydralazine 50 mg See Protocol PO TID 90 days insulin degludec (Tresiba FlexTouch U-200 insulin) 46 units (0.23 mL) subcut DAILY 30 days lactulose (Enulose) 30 mL PO .q72 h PRN lancets (Easy Touch Safety Lancets) USE 2-3 TIMES A DAY DIRECTED FOR BLOOD GLUCOSE MONITORING lorazepam (Ativan) 0.5 mg PO DAILY PRN losartan 75 mg (1.5 x 50 mg) PO DAILY 1 month metoprolol succinate ER 25 mg PO BEDTIME 28 days miscellaneous medical supply R AFO, Daily As directed, 999 days. Disp #1 miscellaneous medical supply Right lateral sole wedge as directed; multivitamin,tx-minerals (Multi-Vitamin HP/Minerals capsule) 1 cap PO DAILY nifedipine ER (Procardia XL) 30 mg PO DAILY pen needle, diabetic (Easy Touch) 1 ea miscellaneous TID 28 days polyethylene glycol 3350 17 grams PO BID risperidone (Risperdal) 0.5 mg PO BID sennosides (senna) 8.6 mg PO BID tamsulosin 0.4 mg PO BEDTIME tramadol 50 mg PO BID PRN 3 days trazodone 200 mg PO BEDTIME ursodiol 300 mg PO BID Tobacco use date assessed: 09/15/23 Dental Screening Dental Screen Date: 09/29/23 Did you have a dental visit in the last 12 months?: Yes Did you have a dental problem in the last 6 months where you did not have access to dental care?: No Was dental information given to patient?: Patient has dentist HPI HPI Comments History of Present Illness Details 63-year-old [place]an-speaking male, 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 He is accompanied by 2 correction staff, one is [place]an-speaking His former PCP is JOHN who is no longer with the practice He has history of diabetes, hypertension, hyperlipidemia, obesity, GERD, CKD stage 3, CVA, normocytic anemia, constipation, anxiety, and depression He admits to taking his medications as prescribed without adverse reactions His last A1c was 8.1% in July 2023 He is followed by nephrology, cardiology, Ophthalmology, and podiatry He offers no complaints and denies acute symptoms at this time COUNT INCLUDES [facility] Medical History Skin lesion Squamous cell carcinoma of skin Encephalopathy Cerebrovascular accident Hypoglycemia unawareness associated with type 2 diabetes mellitus Diabetes type 2, uncontrolled Type 2 diabetes mellitus with diabetic polyneuropathy Essential hypertension Epigastric pain Skin cancer Postoperative bleeding from incision Skin lesion Stroke Type 2 diabetes mellitus with chronic kidney disease Chronic kidney disease, stage 3 Aphagia Unsteady gait Anemia Hypertensive chronic kidney disease with stage 1 through stage 4 chronic kidney disease, or unspecified chronic kidney disease CKD (chronic kidney disease) Hearing loss Preglaucoma Vascular device, implant, or graft complication Bronchitis HTN (hypertension) Hyperlipidemia Hyperlipidemia Vitamin D deficiency Vitamin D deficiency Constipation GERD (gastroesophageal reflux disease) Diabetes Hemiplegia Surgical History History of removal of cyst (~02/09/22) Hx of cataract surgery History of surgical removal of skin lesion History of exploratory laparotomy Family History Father Myocardial infarction Mother Throat cancer Diabetes Family/Other FH: mental illness Brother In good health Sister In good health Sister In good health Daughter In good health Social History 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 Household Members Other:: correction Housing: House Do you presently have visiting nurse or other home services: Yes Alcohol intake: never Patient Tobacco Use Status: Former Tobacco user Tobacco use type: Cigarette Cigarette Packs Per Day: 2 Cigarettes Per Day: 40.0 Years Smoked: 16 e-Cigarette/Vaping Use: Never Used Second Hand Smoke Exposure: No Advance Directives Date on File: 12/02/20 service: No Current occupational status: disabled Current occupational exposures/hazards: No Cognitive needs: No Hearing needs: No Vision needs: No Questionnaire Thrive Questionnaire Date Thrive assessed: 07/23/21 PARRISH-7 AMB Questionnaire PARRISH-7 Date PARRISH - 7 assessed: 07/23/21 Source: Developed by Drs. Amari Ortega, Chaparrita Mg, Domingo Cummings and colleagues, with an educational anthony from [employer]. Review of Systems Const Details: Const Details: Const Denies chills, Denies fatigue, Denies fever(s), Denies headache(s) and Denies weakness ENT Denies dizziness and Denies headache(s) Card Denies chest pain, Denies lightheadedness, Denies dyspnea and Denies other (Palpitations) Resp Denies cough, Denies dyspnea, Denies wheezing and Denies other ( shortness of breath) GI Denies abdominal pain, Denies melena, Denies hematochezia, Denies change in bowel habits, Denies dyspepsia and Denies nausea Denies hematuria and Denies dysuria Musc Reports right flank pain, Reports unsteady gait at baseline, Denies arthralgias, Denies numbness and Denies tingling Skin/Breast Denies rash, Denies unusual bruising and Denies wounds Neuro Denies abnormal gait, Denies dizziness, Denies headache(s), Denies memory loss, Denies numbness, Denies Sensory deficit (Neuro), Denies tingling and Denies weakness Psych Denies anxiety, Denies depression, Denies memory loss Endo Denies cold intolerance, Denies fatigue, Denies heat intolerance, Denies polydipsia and Denies polyuria Aller/Immun Denies wheezing Physical exam (Primary Care) Vital Signs: Last Vital Signs Temp 97.6 F 09/29/23 12:39 Pulse 78 09/29/23 12:39 Resp 13 09/29/23 12:39 BP 146/68 H 09/29/23 12:39 Pulse Ox 99 09/29/23 12:39 Oxygen Delivery Method Room Air 09/29/23 12:39 BMI result Body Mass Index 28.6 Tobacco/Smoking Status: Tobacco use Status Tobacco use date assessed 09/15/23 09/29/23 12:37 Patient Tobacco Use Status Former Tobacco user 09/29/23 12:37 Tobacco use type Cigarette 09/29/23 12:37 e-Cigarette/Vaping Use Never Used 09/29/23 12:37 Thrive Assessment: Date of Thrive Assessment Date Thrive assessed 07/23/21 09/29/23 12:37 Const Other: Const Other: General: no acute distress and well developed Nutritional Appearance: well nourished Orientation/consciousness: patient oriented x3 HENMT Head: Yes normocephalic and Yes atraumatic Eyes General: appearance normal, both eyes and all related structures Pupils: Equal, round and reactive pupils present EOM: EOMs intact bilaterally Resp Effort & Inspection: normal respiratory effort Auscultation: clear to auscultation bilaterally Cardio Rate: regular rate Rhythm: regular rhythm Heart sounds: S1 normal heart sound present, S2 normal heart sound present, no gallops, no murmurs and no rubs GI Palpation (GI): No Abdominal aortic bruit present, Soft to palpation, nontender, No hepatosplenomegaly present and No Rebound tenderness present Auscultation: normal bowel sounds General: Right CVA tenderness Back/Spine/Pelvis Back: no CVA tenderness Cervical Spine: cervical ROM normal and No Cervical spine tenderness Thoracic/Lumbar Spine: thoraco-lumbar ROM normal, No pain with thoraco-lumbar ROM, No thoracic spinal tenderness and No lumbar spinal tenderness Tenderness to palpation of the right flank Extrem General: Yes normal to inspection, No edema and No calf tenderness Skin General: warm and dry. Normal skin color. Normal skin turgor Lesions: no lesions Rashes: no rashes Trauma: no lacerations or abrasions Wounds: no wounds Nails: normal Neuro General: patient oriented x3, unsteady gait Cranial nerves: Yes Equal, round and reactive pupils present Cognition (Neuro): normal cognition Gait exam (Neuro): Unsteady gait present Sensory Exam: No Sensory deficit (Neuro) Psych Appearance: grossly normal Affect: normal affect Attitude: cooperative Thought process: Normal thought process present Assessment and Plan Assessment & Plan (1) HTN (hypertension): Code(s): I10 - Essential (primary) hypertension Qualifiers: Hypertension type: essential hypertension Qualified Code(s): I10 - Essential (primary) hypertension Plan: Resting blood pressure is 114/60, within goal of less than 130/80 Continue current treatment regimen Low-sodium diet encouraged Advised to follow-up with specialist as planned Follow-up in 2-4 weeks for hypertension and diabetes Return sooner with symptoms or concerns Verbalized understanding and agreed with treatment plan Interpretation by correction staff per patient's preference (2) Mild anemia: Code(s): D64.9 - Anemia, unspecified Plan: He has history of normocytic anemia Recent H&H is low 12.4/37.5 respectively, RBC is 4.33 Will check iron profile, ferritin level, and vitamin B12 and folate Advised to get blood work done before his next visit Verbalized understanding and agreed with the plan (3) Diabetes type 2, uncontrolled: Code(s): E11.65 - Type 2 diabetes mellitus with hyperglycemia Qualifiers: Glycemic state: with hypoglycemia Coma presence: without coma Qualified Code(s): E11.649 - Type 2 diabetes mellitus with hypoglycemia without coma Plan: His last A1c was 8.1% on 07/2023 Continue current treatment regimen ADA diet and routine exercise encouraged Follow-up in 2-3 weeks for diabetes follow-up Verbalized understanding and agreed with the treatment plan Orders: Orders IRON PROFILE Today D64.9 - Anemia, unspecified Ferritin Today D64.9 - Anemia, unspecified Vitamin B12 and Folate Today D64.9 - Anemia, unspecified Medications: Refilled lactulose (Enulose) Take every 3 days or every 72 hours as needed. If no effect after 24 hours from dose, contact PCP 30 mL PO .q72 h PRN 473 mL 3RF constipation acetaminophen (Tylenol) Take two 325mg tabs every 6 hours as needed for fever over 101, headache, or general discomfort. Contact PCP if symptoms persist greater than 24 hours. 650 mg (2 x 325 mg) PO Q6H 30 days PRN 120 tabs 2RF temp, headache or general discomfort Coding Level of Care Code Est Pt Level 4 (31194) Diagnoses Essential hypertension I10 Hypertension type: essential hypertension Mild anemia D64.9 Uncontrolled type 2 diabetes mellitus with hypoglycemia without coma E11.649 Glycemic state: with hypoglycemia Coma presence: without coma
[2023-09-29 12:39] VITALS: BP 146/68; PULSE 78; RESP 13; TEMP 36.4; O2SAT 99; BMI 28.6
[2023-09-29 13:15] VITALS: BP 114/60
== END 2023-09-29 13:27 | disposition home or self-care (01) ==
PROVIDERS: PCP Hospitalist; Visit Provider Nurse Practitioner Family
DX: I10 Essential (primary) hypertension (principal); D64.9 Anemia, unspecified; E11.649 Type 2 diabetes mellitus with hypoglycemia without coma; K21.9 Gastro-esophageal reflux disease without esophagitis
CPT/HCPCS: 99214

== ENCOUNTER 2023-10-21 15:37 | Emergency (ER) | payer OTHER, SELFPAY ==
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
[2023-10-21 15:57] VITALS: BP 172/87; PULSE 68; O2SAT 96; BMI 25.8
[2023-10-21 16:00] VITALS: BP 150/76; PULSE 66; RESP 18; TEMP 37.1; O2SAT 98
--- NOTE | 2023-10-21 17:04 | ECG_ITS ---
Test Reason : CHEST PAIN Blood Pressure : / mmHG Vent. Rate : 067 BPM Atrial Rate : 067 BPM P-R Int : 132 ms QRS Dur : 092 ms QT Int : 410 ms P-R-T Axes : 034 -12 037 degrees QTc Int : 433 ms Normal sinus rhythm with sinus arrhythmia Minimal voltage criteria for LVH, may be normal variant ( R in aVL ) Borderline ECG No significant changes when compared with the previous EKG of 27 april 2021 Referred By: Devaughn Khan Electronically Signed By:ELHAM JOE
[2023-10-21 17:33] LABS: MANUAL DIFF FLAG NO
[2023-10-21 17:36] LABS: Basophils Percent Auto 0.4 % (0-2); Eosinophils Absolute Auto 0.2 X10*3/uL (0.0-0.4); Eosinophils Percent Auto 1.8 % (0-4); Hematocrit 37.6 % (42.0-52.0); Hemoglobin 12.6 g/dl (14.0-18.0); Imm Gran Abs Auto 0.06 X10*3/uL (0.00-0.03); Imm Gran Pct Auto 0.5 % (0.0-0.4); Lymphocytes Absolute Auto 2.2 X10*3/uL (1.2-4.9); Lymphocytes Percent Auto 20.1 % (20-40); Mean Corpuscular HGB Conc 33.5 g/dl (31.0-36.0); Mean Corpuscular Volume 86.4 fL (80.0-98.0); Mean Platelet Volume 10.2 fL (9.4-12.4); Monocytes Absolute Auto 0.9 X10*3/uL (0.1-1.2); Monocytes Percent Auto 7.9 % (2-11); Neutrophils Absolute Auto 7.6 x10*3/uL (2.0-8.3); Neutrophils Percent Auto 69.3 % (45-73); Platelet Count 236 X10*3/uL (160-400); Red Blood Count 4.35 X10*6/uL (4.60-5.80); Red Cell Distribution Width 12.8 % (11.0-16.0)
[2023-10-21 17:47] LABS: Alanine Aminotransferase 10 U/L (0-40); Albumin Level 4.2 g/dL (3.5-5.0); Alkaline Phosphatase 84 U/L (39-117); Anion Gap 13 (12-20); Aspartate Amino Transferase 12 U/L (5-37); Bilirubin Total 0.2 mg/dL (0.0-1.0); Blood Urea Nitrogen 29 mg/dL (9-16); Calcium 9.8 mg/dL (8.4-10.2); Carbon Dioxide 25 mmol/L (22-29); Chloride 108 mmol/L (96-108); Creatinine Clr Calc Pharmacy 37.2; Estimated Glomerular Filt Rate 31; Glucose Random 165 mg/dL (60-115); Potassium 4.5 mmol/L (3.3-5.1); Sodium 141 mmol/L (135-145)
[2023-10-21 17:52] VITALS: BP 154/80; PULSE 66; RESP 18; TEMP 37; O2SAT 97
[2023-10-21 17:54] LABS: Troponin-I High Sensitivity 4.4 ng/L (<3.5-35.0)
--- NOTE | 2023-10-21 18:04 | PC.NURSE ---
Alert and oriented, fpc staff at bedside, c collar remains in place pending results of CT scan.
[2023-10-21 18:11] LABS: INTERNATIONAL NORM RATIO 1.1 (0.9-1.1); Prothrombin Time 13.5 SEC (11.1-13.3)
[2023-10-21 18:13] LABS: Partial Thromboplastin Time 36.9 SEC (26.0-36.4)
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
--- NOTE | 2023-10-21 19:17 | PC.NURSE ---
Per Erendira Bailey Collar removed. Pt reporting 10/10 pain. PA aware, ordered morphine.
[2023-10-21] MEDS: Morphine Sulfate 2 MG/ML CARTRIDGE IVPUSH (19:21)
[2023-10-21 20:16] VITALS: BP 153/85; PULSE 73; RESP 17; TEMP 36.5; O2SAT 96
[2023-10-21 20:46] LABS: Troponin-I High Sensitivity 4.5 ng/L (<3.5-35.0)
--- NOTE | 2023-10-21 21:23 | PC.NURSE ---
Spoke with nurse from the [facility] to give updates. [facility] staff a the bedside, brought attention to pt's left wrist. Pt has hx of CVA with deficits on the left side, however wrist appears slightly swollen and deformed compared to the right wrist. MONIKA Cantor at the bedside to asses, stated wrist feels in tct but we will get an x-ray to be sure. Otherwise, pt's results looked okay. Pt also requesting more pain medication.
[2023-10-21] MEDS: Morphine Sulfate 4 MG/ML CARTRIDGE 3 MG IVPUSH (21:42)
[2023-10-21 22:10] VITALS: BP 171/82; PULSE 71; RESP 18; TEMP 36.7; O2SAT 97
--- NOTE | 2023-10-21 22:11 | MHC.EDTECH ---
ASSISTED PT TO USE URINAL AND FOUND THAT PT WAS INCONTINENT OF LARGE AMOUNT OF URINE. THIS PCT WITH RN CLEANED PT AND CHANGED BEDDING AND GOWN.
--- NOTE | 2023-10-21 22:14 | PC.NURSE ---
Pt had an episode of incontinence, pt was cleaned and outputted 300mL in the urinal. New dry sheets were given. Pt repositioned in bed. Waiting x-ray reports
--- NOTE | 2023-10-22 00:23 | PC.NURSE ---
Attempted to call company nurse to inform of discharge status, no answer. I left a message requesting call back.
--- NOTE | 2023-10-22 00:57 | PC.NURSE ---
Spoke with Natalia from [facility] to inform her of discharge dispo. Pt waiting ambulance ride home.
--- NOTE | 2023-10-22 00:57 | MHC.EDTECH ---
call out to john at 0057 to book transport for pt, estimated eta given was [id number]
== END 2023-10-22 01:35 | disposition home or self-care (01) ==
PROVIDERS: Physician Assistant; Emergency Provider Internal Medicine
DX: S29.9XXA Unspecified injury of thorax, initial encounter (principal); R07.89 Other chest pain; I49.8 Other specified cardiac arrhythmias; R51.9 Headache, unspecified; M25.539 Pain in unspecified wrist; R10.9 Unspecified abdominal pain; M54.2 Cervicalgia; V43.62XA Car passenger injured in collision with other type car in traffic accident, initial encounter; Y93.9 Activity, unspecified; Y92.410 Unspecified street and highway as the place of occurrence of the external cause; Y99.9 Unspecified external cause status; Z79.899 Other long term (current) drug therapy
CPT/HCPCS: 36415; 70450; 71250; 72125; 73110; 73130; 74176; 80053; 84484; 85025; 85610; 85730; 93005; 96374; 96376; 99284; 99285; J2270

== ENCOUNTER → 2023-10-21 17:04 | Outpatient (BNV) | payer OTHER, SELFPAY | PROVIDERS: Emergency Provider Internal Medicine; Visit Provider Internal Medicine | DX: R07.9 Chest pain, unspecified (principal) | CPT/HCPCS: 93010 ==

== ENCOUNTER 2023-10-26 07:00 | Outpatient (REF) | payer OTHER, SELFPAY ==
[2023-10-26 07:55] LABS: Appearance Urine Clear; Color Urine Yellow; Glucose Urine UA 250 mg/dL (Negative); Leukocyte Esterase Urine Negative (Negative); Nitrite Urine Negative (Negative); PH 5.5 (5.0-9.0); Specific Gravity - Urine 1.015 (1.005-1.025); UMIC TRIGGER UACC YES; Urine Blood Negative (Negative); Urine Ketones Negative (Negative); Urine Protein 30 (1+) mg/dL (Neg-Trace)
[2023-10-26 07:57] LABS: Bacteria Urine None Seen (None Seen); Hyaline Casts Urine 0-2 /LPF (0-2); RBC Urine 0-2 /HPF (0-2); Squamous Epithelial Cell Urine 0-2 /HPF (0-2); WBC Urine 0-5 /HPF (0-5)
[2023-10-26 08:00] LABS: Anion Gap 12 (12-20); Blood Urea Nitrogen 50 mg/dL (9-16); Carbon Dioxide 24 mmol/L (22-29); Chloride 109 mmol/L (96-108); Cholesterol 96 mg/dL (<200); Estimated Glomerular Filt Rate 24; HDL Cholesterol 28 mg/dL (>40); Iron 79 mcg/dL (45-160); LDL Cholesterol Calculated 55 mg/dL (<100); Percent Iron Saturation 34 % (15-50); Potassium 4.3 mmol/L (3.3-5.1); Sodium 141 mmol/L (135-145); Total Iron Binding Capacity 232 mcg/dL (228-428); Triglycerides 67 mg/dL (<150); Unsaturated Iron Binding 153 ug/dL
[2023-10-26 08:17] LABS: Ferritin 126 ng/mL (20-250); Vitamin D 25-OH Total 29.3 ng/mL (>30)
[2023-10-26 08:20] LABS: Creatinine Urine 87.56 mg/dL; Protein/Creatinine Ratio, Ur 0.29 (<0.2); Total Protein Urine Random 25 mg/dL (<12)
[2023-10-26 08:35] LABS: Folate 9.8 ng/mL (> or = 4.0)
[2023-10-26 12:33] LABS: Vitamin B12 1162 pg/mL (200-900)
== END 2023-10-26 07:01 | disposition home or self-care (01) ==
LOC: HO.LAB 07:00
PROVIDERS: Absent Provider Internal Medicine Nephrology; PCP Nurse Practitioner Family; Visit Provider Nurse Practitioner Family
DX: E11.649 Type 2 diabetes mellitus with hypoglycemia without coma (principal); E11.65 Type 2 diabetes mellitus with hyperglycemia; E11.42 Type 2 diabetes mellitus with diabetic polyneuropathy; E11.22 Type 2 diabetes mellitus with diabetic chronic kidney disease; I12.9 Hypertensive chronic kidney disease with stage 1 through stage 4 chronic kidney disease, or unspecified chronic kidney disease; N18.4 Chronic kidney disease, stage 4 (severe); D64.9 Anemia, unspecified; E55.9 Vitamin D deficiency, unspecified
CPT/HCPCS: 36415; 80051; 80061; 81001; 82306; 82565; 82570; 82607; 82728; 82746; 83540; 84156; 84520; 99212

== ENCOUNTER 2023-10-26 12:20 | Outpatient (AMB) | payer OTHER, SELFPAY ==
--- NOTE | 2023-10-26 12:20 | HO.NEPHOV ---
HPI HPI Comments History of Present Illness Details 63-year-old man with a history of CKD and hypertension. Here for follow-up. Today he has no specific complaints today. Accompanied by caregiver. [facility] Medical History Skin lesion Squamous cell carcinoma of skin Encephalopathy Cerebrovascular accident Hypoglycemia unawareness associated with type 2 diabetes mellitus Diabetes type 2, uncontrolled Type 2 diabetes mellitus with diabetic polyneuropathy Essential hypertension Epigastric pain Skin cancer Postoperative bleeding from incision Skin lesion Stroke Type 2 diabetes mellitus with chronic kidney disease Chronic kidney disease, stage 3 Aphagia Unsteady gait Anemia Hypertensive chronic kidney disease with stage 1 through stage 4 chronic kidney disease, or unspecified chronic kidney disease CKD (chronic kidney disease) Hearing loss Preglaucoma Vascular device, implant, or graft complication Bronchitis HTN (hypertension) Hyperlipidemia Hyperlipidemia Vitamin D deficiency Vitamin D deficiency Constipation GERD (gastroesophageal reflux disease) Diabetes Hemiplegia Surgical History History of removal of cyst (~02/09/22) Hx of cataract surgery History of surgical removal of skin lesion History of exploratory laparotomy Family History Father Myocardial infarction Mother Throat cancer Diabetes Family/Other FH: mental illness Brother In good health Sister In good health Sister In good health Daughter In good health Social History 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 Household Members Other:: [facility] Housing: House Do you presently have visiting nurse or other home services: Yes Alcohol intake: former Patient Tobacco Use Status: Former Tobacco user Tobacco use type: Cigarette Cigarette Packs Per Day: 2 Cigarettes Per Day: 40.0 Years Smoked: 16 Packs Per Year: 32 Packs per year/per ci.00 e-Cigarette/Vaping Use: Never Used Second Hand Smoke Exposure: No Advance Directives Date on File: 12/02/20 service: No Current occupational status: disabled Current occupational exposures/hazards: No Cognitive needs: No Hearing needs: No Vision needs: No Vital Signs 10/26/23 12:23 BP 122/60 Blood Pressure Location Rt brachial Position Sitting Pulse 60 Pulse Source Pulse Oximeter Pulse Oximetry (%) 94 Oxygen Delivery Method Room Air Physical Exam Vital Signs: Last Vital Signs Pulse 60 10/26/23 12:23 BP 122/60 10/26/23 12:23 Pulse Ox 94 10/26/23 12:23 Oxygen Delivery Method Room Air 10/26/23 12:23 Awake. Comfortable. Neck is supple. Mucosa moist. Lungs bilateral scattered rhonchi. Heart S1-S2 heard no gallop. Abdomen soft. Extremities no edema. No involuntary movements. No myoclonus. Assessment & Plan Assessment & Plan (1) CKD (chronic kidney disease) stage 4, GFR 15-29 ml/min: Code(s): N18.4 - Chronic kidney disease, stage 4 (severe) Plan 63-year-old man with CKD setting of hypertension. Renal function stable at baseline. Goal is to slow the portion disease. Continue to avoid nephrotoxic agents. Keep on losartan for renal protection in view of microalbuminuria. Blood pressure is well controlled No changes were made to his antihypertensive regimen. He should stay on low-sodium diet. Orders: Orders Comprehensive Met. Panel 3 Months N18.4 - Chronic kidney disease, stage 4 (severe) Complete Blood Count no Diff 3 Months N18.4 - Chronic kidney disease, stage 4 (severe) Parathyroid Hormone Intact 3 Months N18.4 - Chronic kidney disease, stage 4 (severe) Coding Level of Care Code Est Pt Level 4 (66919) Diagnoses CKD (chronic kidney disease) stage 4, GFR 15-29 ml/min N18.4 Results Reviewed Nephrology Results: Hgb 11.3 g/dl (14.0-18.0) L 10/31/23 WBC 12.6 X10*3/uL (4.8-10.8) H 10/31/23 Plt Count 258 X10*3/uL (160-400) 10/31/23 Sodium 135 mmol/L (135-145) 10/31/23 Potassium 5.0 mmol/L (3.3-5.1) 10/31/23 Chloride 108 mmol/L (96-108) 10/31/23 Carbon Dioxide 18 mmol/L (22-29) L 10/31/23 BUN 44 mg/dL (9-16) H 10/31/23 Creatinine 2.20 mg/dL (0.5-1.4) H 10/31/23 Calcium 9.6 mg/dL (8.4-10.2) 10/31/23 Urine Protein 30 (1+) mg/dL (Neg-Trace) H 10/26/23 Urine Creatinine 87.56 mg/dL 10/26/23 Protein/Creatinin Ratio 0.29 (<0.2) H 10/26/23
[2023-10-26 12:23] VITALS: BP 122/60; PULSE 60; O2SAT 94
== END 2023-10-26 12:43 | disposition home or self-care (01) ==
PROVIDERS: PCP Nurse Practitioner Family; Visit Provider Internal Medicine Hypertension Specialist
DX: N18.4 Chronic kidney disease, stage 4 (severe) (principal)
CPT/HCPCS: 99214

== ENCOUNTER 2023-10-29 11:20 | Outpatient (AMB) | payer OTHER, SELFPAY ==
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
[2023-10-29 11:30] VITALS: BP 144/70; PULSE 63; RESP 13; TEMP 36.3; O2SAT 99; BMI 27.6
[2023-10-29 12:09] VITALS: BP 126/60
== END 2023-10-29 12:30 | disposition home or self-care (01) ==
PROVIDERS: PCP Nurse Practitioner Family; Visit Provider Nurse Practitioner Family
DX: E11.649 Type 2 diabetes mellitus with hypoglycemia without coma (principal); I10 Essential (primary) hypertension; E55.9 Vitamin D deficiency, unspecified; D64.9 Anemia, unspecified; R07.89 Other chest pain
CPT/HCPCS: 83036; 99214

== ENCOUNTER 2023-10-31 13:27 | Emergency (ER) | payer OTHER, SELFPAY ==
--- NOTE | ~2023-10-31 | XR_ITS ---
EXAMINATION: XR CHEST CLINICAL INFORMATION: Chest pain. COMPARISON: Chest radiographs dated 11/23/2021. TECHNIQUE: Frontal view of the chest was obtained. The patient is somewhat rotated. FINDINGS: No significant abnormality is noted involving the heart, lungs, mediastinum, bony thorax or soft tissues. XR/XR chest 1V IMPRESSION: Unremarkable examination.
[2023-10-31 13:39] VITALS: BP 131/58; BP 132/70; PULSE 68; PULSE 69; RESP 18; TEMP 36.6; O2SAT 94; O2SAT 96; BMI 14.6
--- NOTE | 2023-10-31 13:50 | ECG_ITS ---
Test Reason : CHEST PAIN Blood Pressure : / mmHG Vent. Rate : 068 BPM Atrial Rate : 068 BPM P-R Int : 144 ms QRS Dur : 092 ms QT Int : 402 ms P-R-T Axes : 020 -06 042 degrees QTc Int : 427 ms Normal sinus rhythm Normal ECG When compared with ECG of 21-OCT-2023 17:36, No significant change was found Referred By: Inna Acuna Electronically Signed By:SYED ORTIZ MD
[2023-10-31 13:53] VITALS: BP 131/58; PULSE 70; RESP 18; TEMP 36.6; O2SAT 96
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
[2023-10-31 14:50] LABS: MANUAL DIFF FLAG NO
[2023-10-31 14:54] LABS: Basophils Percent Auto 0.2 % (0-2); Eosinophils Percent Auto 0.2 % (0-4); Hematocrit 33.2 % (42.0-52.0); Hemoglobin 11.3 g/dl (14.0-18.0); Imm Gran Abs Auto 0.05 X10*3/uL (0.00-0.03); Imm Gran Pct Auto 0.4 % (0.0-0.4); Lymphocytes Absolute Auto 1.1 X10*3/uL (1.2-4.9); Lymphocytes Percent Auto 8.9 % (20-40); Mean Corpuscular Hemoglobin 29.4 pg (27.0-33.0); Mean Corpuscular Volume 86.5 fL (80.0-98.0); Mean Platelet Volume 10.4 fL (9.4-12.4); Monocytes Absolute Auto 0.2 X10*3/uL (0.1-1.2); Monocytes Percent Auto 1.9 % (2-11); Neutrophils Absolute Auto 11.1 x10*3/uL (2.0-8.3); Neutrophils Percent Auto 88.4 % (45-73); Platelet Count 258 X10*3/uL (160-400); Red Blood Count 3.84 X10*6/uL (4.60-5.80); Red Cell Distribution Width 12.8 % (11.0-16.0); White Blood Count 12.6 X10*3/uL (4.8-10.8)
[2023-10-31] MEDS: Lidocaine 4 % Patch ADH..PATCH 1 PATCH TRANSDERMA (15:08)
[2023-10-31 15:15] LABS: Alanine Aminotransferase 25 U/L (0-40); Alkaline Phosphatase 96 U/L (39-117); Anion Gap 14 (12-20); Aspartate Amino Transferase 14 U/L (5-37); Bilirubin Direct < 0.2 mg/dL (0.0-0.5); Bilirubin Total 0.2 mg/dL (0.0-1.0); Blood Urea Nitrogen 44 mg/dL (9-16); Calcium 9.6 mg/dL (8.4-10.2); Carbon Dioxide 18 mmol/L (22-29); Chloride 108 mmol/L (96-108); Creatinine Clr Calc Pharmacy 43.3; Estimated Glomerular Filt Rate 31; Glucose Random 331 mg/dL (60-115); Magnesium 2.2 mg/dL (1.6-2.6); Sodium 135 mmol/L (135-145); Total Protein 7.5 g/dL (6.5-8.0)
[2023-10-31 15:18] LABS: COVID-19 Test Negative (Negative); IDNOW Serial# 9DB6401D
[2023-10-31 15:23] LABS: Troponin-I High Sensitivity 3.7 ng/L (<3.5-35.0)
[2023-10-31 16:19] VITALS: BP 142/71; PULSE 66; RESP 18; TEMP 36.6; O2SAT 98
--- NOTE | 2023-10-31 16:24 | PC.NURSE ---
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
== END 2023-10-31 17:18 | disposition home or self-care (01) ==
PROVIDERS: Emergency Provider Emergency Medicine
DX: R07.89 Other chest pain (principal); Z87.891 Personal history of nicotine dependence; Z11.52 Encounter for screening for COVID-19; Z79.899 Other long term (current) drug therapy
CPT/HCPCS: 36415; 71045; 80048; 80076; 83735; 84484; 85025; 87635; 93005; 99284; 99285

== ENCOUNTER → 2023-10-31 13:50 | Outpatient (BNV) | payer OTHER, SELFPAY | PROVIDERS: Emergency Provider Emergency Medicine; Visit Provider Internal Medicine Cardiovascular Disease | DX: R07.9 Chest pain, unspecified (principal) | CPT/HCPCS: 93010 ==

== ENCOUNTER 2023-11-08 10:36 | Outpatient (AMB) | payer OTHER, SELFPAY ==
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
[2023-11-08 10:41] VITALS: BP 128/60; PULSE 75; RESP 15; TEMP 36.3; O2SAT 99; BMI 28.6
== END 2023-11-08 11:19 | disposition home or self-care (01) ==
PROVIDERS: Visit Provider Nurse Practitioner Family
DX: R07.9 Chest pain, unspecified (principal); Z04.3 Encounter for examination and observation following other accident
CPT/HCPCS: 99214

== ENCOUNTER 2023-12-07 10:11 | Outpatient (AMB) | payer OTHER, SELFPAY ==
[2023-12-07 10:51] VITALS: BP 134/80; PULSE 82; RESP 13; TEMP 36.4; O2SAT 99; BMI 28.5
--- NOTE | 2023-12-07 10:51 | A.OFFPC_ITS ---
Vital Signs 12/07/23 10:51 Height 5 ft 8 in Weight 187 lb 6 oz BMI 28.5 BP 134/80 Blood Pressure Location Rt brachial Position Sitting Respiration 13 Pulse 82 Pulse Source Pulse Oximeter Temp 97.6 F Temp Source Temporal Artery Scan Pulse Oximetry (%) 99 Oxygen Delivery Method Room Air Intake Visit Reasons: CPE Allergies amlodipine [From [facility]] Allergy (Severe, Verified 11/08/23 10:55) due to poor renal function ibuprofen Allergy (Severe, Verified 11/08/23 10:55) 2/2 renal function Medication List - Last Reconciled 12/07/23 by Nikki Naik CNP acetaminophen (Tylenol) 650 mg (2 x 325 mg) PO Q6H PRN 30 days apixaban (Eliquis) 5 mg PO BID ascorbic acid (vitamin C) 500 mg PO BID 3 months aspirin 81 mg PO QAM 90 days atorvastatin 80 mg PO BEDTIME 90 days blood sugar diagnostic (FreeStyle Lite Strips) USE TO TEST BLOOD SUGAR FOUR TIMES A DAY blood-glucose meter (FreeStyle Lite Meter kit) As directed cholecalciferol (vitamin D3) 25 mcg PO DAILY 90 days cyclobenzaprine 10 mg PO TID PRN 7 days empagliflozin (Jardiance) 10 mg PO QAM glucose 15 grams PO Q15M PRN hydralazine 50 mg See Protocol PO TID 90 days insulin degludec (Tresiba FlexTouch U-200 insulin) 46 units (0.23 mL) subcut DAILY 30 days lactulose (Enulose) 30 mL PO .q72 h PRN lancets (Easy Touch Safety Lancets) USE 2-3 TIMES A DAY DIRECTED FOR BLOOD GLUCOSE MONITORING lidocaine 5% 1 patch topical DAILY lorazepam (Ativan) 0.5 mg PO DAILY PRN losartan 75 mg (1.5 x 50 mg) PO DAILY 1 month metoprolol succinate ER 25 mg PO BEDTIME 28 days miscellaneous medical supply R AFO, Daily As directed, 999 days. Disp #1 miscellaneous medical supply Right lateral sole wedge as directed; multivitamin,tx-minerals (Multi-Vitamin HP/Minerals capsule) 1 cap PO DAILY nifedipine ER (Procardia XL) 30 mg PO DAILY 30 days pen needle, diabetic (Easy Touch) 1 ea miscellaneous TID 28 days polyethylene glycol 3350 17 grams PO BID risperidone (Risperdal) 0.5 mg PO BID semaglutide (Ozempic) 1 mg (0.75 mL) subcut QWEEK sennosides (senna) 8.6 mg PO BID tamsulosin 0.4 mg PO BEDTIME trazodone 200 mg PO BEDTIME ursodiol 300 mg PO BID Tobacco use date assessed: 10/29/23 Dental Screening Dental Screen Date: 12/07/23 Did you have a dental visit in the last 12 months?: No Did you have a dental problem in the last 6 months where you did not have access to dental care?: No Was dental information given to patient?: Patient has dentist HPI HPI Comments History of Present Illness Details 63-year-old Prydeinig-speaking male, from a [place] [facility], presents for an extended physical exam He is accompanied by a [place] [facility] staff He has history of diabetes, hypertension, anemia, vitamin-D deficiency, CVA (left upper extremity hemiparesis), squamous cell carcinoma, constipation, CKD, hyperlipidemia, anxiety, and depression He admits to taking his medications as prescribed without adverse reactions He sees a psychiatrist every 3 months. His next appointment is next month He offers no complaints and denies acute symptom at this time He ambulates using a walker. His gait in his unsteady per [place] [facility] staff He notes that he had a colonoscopy done 2 years ago. He does not recall name of the doctor or practice [facility] He states that he has not been vaccinated for the flu vaccine vaccine. He wants to be vaccinated today He stopped smoking cigarette 17 years ago. He never drank alcohol. No recreational drug use His last dental visit was in 06/2023 He is followed by [facility] nephrology and cardiology He is also followed by podiatry and prosthesis and orthotics Interpretation by professional live in housekeeper nanny via electronic tablet [facility] Medical History Skin lesion Squamous cell carcinoma of skin Encephalopathy Cerebrovascular accident Hypoglycemia unawareness associated with type 2 diabetes mellitus Diabetes type 2, uncontrolled Type 2 diabetes mellitus with diabetic polyneuropathy Essential hypertension Epigastric pain Skin cancer Postoperative bleeding from incision Skin lesion Stroke Type 2 diabetes mellitus with chronic kidney disease Chronic kidney disease, stage 3 Aphagia Unsteady gait Anemia Hypertensive chronic kidney disease with stage 1 through stage 4 chronic kidney disease, or unspecified chronic kidney disease CKD (chronic kidney disease) Hearing loss Preglaucoma Vascular device, implant, or graft complication Bronchitis HTN (hypertension) Hyperlipidemia Hyperlipidemia Vitamin D deficiency Vitamin D deficiency Constipation GERD (gastroesophageal reflux disease) Diabetes Hemiplegia Surgical History History of removal of cyst (~02/09/22) Hx of cataract surgery History of surgical removal of skin lesion History of exploratory laparotomy Family History Father Myocardial infarction Mother Throat cancer Diabetes Family/Other FH: mental illness Brother In good health Sister In good health Sister In good health Daughter In good health Social History 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 Household Members Other:: [place] Housing: House Do you presently have visiting nurse or other home services: Yes Alcohol intake: former Patient Tobacco Use Status: Former Tobacco user Tobacco use type: Cigarette Cigarette Packs Per Day: 2 Cigarettes Per Day: 40.0 Years Smoked: 16 e-Cigarette/Vaping Use: Never Used Second Hand Smoke Exposure: No Advance Directives Date on File: 12/02/20 service: No Current occupational status: disabled Current occupational exposures/hazards: No Cognitive needs: No Hearing needs: No Vision needs: No Questionnaire PHQ-9 Over the last 2 weeks, how often have you been bothered by any of the following problems? 1. Little interest or pleasure in doing things: nearly every day 2. Feeling down, depressed, or hopeless: not at all 3. Trouble falling or staying asleep, or sleeping too much: nearly every day 4. Feeling tired or having little energy: not at all 5. Poor appetite or overeating: not at all 6. Feeling bad about yourself - or that you are a failure or have let yourself or your family down: nearly every day 7. Trouble concentrating on things, such as reading the newspaper or watching television: not at all 8. Moving or speaking so slowly that other people could have noticed. Or the opposite - being so fidgety or restless that you have been moving around a lot more than usual: not at all 9. Thoughts that you would be better off or of hurting yourself in some way: several days Total score: 10 Depression Screening Interpretation: Positive Depression Screening Follow-up: Existing condition and In treatment Depression Screening Done: Yes 68020 - PHQ-9 Billing: Yes Source: Developed by Drs. Amari Ortega, Chaparrita Mg, Domingo Cummings and colleagues, with an educational anthony from [employer]. Thrive Questionnaire Date Thrive assessed: 12/07/23 I am a: Patient What is your living situation today?: I have a steady place to live Within the past 12 months, did the food you bought not last and you didn't have the money to get more?: Never true Within the past 12 months, did you worry whether your food would run out before you got money to buy more?: Never true Do you have trouble paying for medicines?: No Do you have trouble getting transportation to medical appointments?: No Do you have trouble paying your heating and electricity bill?: No Do you have trouble taking care of your child, family member or friend?: No Do you have trouble with day-to-day activities such as bathing, preparing meals, shopping, managing finances, etc.?: No Are you currently unemployed and looking for a job?: No Are you interested in more education?: No Please select the resources that you would like help with: None Currently or been in a relationship where the following occur: no concerns reported THRIVE Score: 0 AUDIT C Alcohol Use Questionnaire (AUDIT-C) 1. How often do you have a drink containing alcohol?: Never 3. How often do you have six or more drinks on one occasion?: Never Total Score: 0 PARRISH-7 AMB Questionnaire PARRISH-7 Date PARRISH - 7 assessed: 12/07/23 Feeling nervous, anxious, or on edge: 1 = Several days Not being able to stop or control worryin = Not at all Worrying too much about different things: 0 = Not at all Trouble relaxin = Several days Being so restless that it is hard to sit still: 3 = Nearly every day Becoming easily annoyed or irritable: 0 = Not at all Feeling afraid as if something awful might happen: 0 = Not at all Total PARRISH-7 score (0-4 normal; 5-9 mild; 10-14 moderate; 15-21 severe): 5 Source: Developed by Drs. Amari Ortega, Chaparrita Mg, Domingo Cummings and colleagues, with an educational anthony from [employer]. PARRISH-7 Assessment Billing PARRISH-7 Assessment Tool: PARRISH-7 Assessment 26327 Review of Systems Const Details: Denies chills, Denies fatigue, Denies fever(s), Denies headache(s) and Denies weakness HEENT Denies change in vision, Denies dizziness, Denies headache(s), Denies hearing loss, Denies nasal congestion, Denies sinus pain, Denies sinus pressure and Denies sore throat Card Denies chest pain, Denies lightheadedness, Denies dyspnea and Denies other (palpitations) Resp Denies cough, Denies dyspnea and Denies wheezing GI Denies abdominal pain, Denies melena, Denies hematochezia, Denies change in bowel habits, Denies dyspepsia and Denies nausea Denies hematuria and Denies dysuria Musc Denies abnormal gait, Denies myalgias, Denies arthralgias, Denies numbness and Denies tingling Skin/Breast Denies rash, Denies unusual bruising and Denies wounds Neuro Reports abnormal gait, Denies dizziness, Denies headache(s), Denies memory loss, Denies numbness, Denies Sensory deficit (Neuro), Denies tingling and Denies weakness Psych Denies anxiety, Denies depression and Denies memory loss Endo Denies cold intolerance, Denies fatigue, Denies heat intolerance, Denies po lydipsia and Denies polyuria Nnamdi/Lymph Denies easy bleeding and Denies easy bruising Aller/Immun Denies wheezing Physical exam (Primary Care) Vital Signs: Last Vital Signs Temp 97.6 F 12/07/23 10:51 Pulse 82 12/07/23 10:51 Resp 13 12/07/23 10:51 BP 134/80 12/07/23 10:51 Pulse Ox 99 12/07/23 10:51 Oxygen Delivery Method Room Air 12/07/23 10:51 BMI result Body Mass Index 28.5 Tobacco/Smoking Status: Tobacco use Status Tobacco use date assessed 10/29/23 12/07/23 10:58 Patient Tobacco Use Status Former Tobacco user 12/07/23 10:58 Tobacco use type Cigarette 12/07/23 10:58 e-Cigarette/Vaping Use Never Used 12/07/23 10:58 PHQ-9: PHQ-9 Score PHQ-9: Total score 10 12/07/23 13:12 Depression Screening Interpretation: Positive Depression Screening Follow-up: Existing condition and In treatment Thrive Assessment: Date of Thrive Assessment Date Thrive assessed 12/07/23 12/07/23 11:11 Currently or been in a relationship where the following occur: no concerns reported Const Other: General: no acute distress, well developed, alert and awake Nutritional Appearance: well nourished Orientation/consciousness: patient oriented x3 HENMT Head: Yes normocephalic and Yes atraumatic Ears: hearing grossly normal bilaterally and TM's normal bilaterally General nose exam: Normal external nose present and Normal nares present Mouth: Normal oral and palatal mucosa present and moist mucous membranes Teeth and gingiva: dentition normal Throat: Yes oropharynx normal Eyes Pupils: Equal, round and reactive pupils present and Pupil accommodation reflex normal EOM: EOMs intact bilaterally Neck Neck: Yes normal visual inspection, Yes no lymphadenopathy and Yes trachea midline Thyroid: Thyroid normal Carotids: no bruits Lymphatic: no lymphadenopathy noted Chest Chest palpation & inspection: normal inspection of the chest Resp Effort & Inspection: normal respiratory effort Auscultation: clear to auscultation bilaterally Cardio Rate: regular rate Rhythm: regular rhythm Heart sounds: S1 normal heart sound present, S2 normal heart sound present, no gallops, no murmurs and no rubs Bruits: no abdominal aortic bruits and no carotid bruits GI Palpation (GI): No Abdominal aortic bruit present, Soft to palpation, nontender, No hepatosplenomegaly present and No Rebound tenderness present Auscultation: normal bowel sounds General: Yes no CVA tenderness Back/Spine/Pelvis Back: no CVA tenderness Cervical Spine: cervical ROM normal and No Cervical spine tenderness Thoracic/Lumbar Spine: thoraco-lumbar ROM normal, No pain with thoraco-lumbar ROM, No thoracic spinal tenderness and No lumbar spinal tenderness Skin General: warm and dry. Normal skin color. Normal skin turgor Lesions: no lesions Rashes: no rashes Trauma: no lacerations or abrasions Wounds: no wounds Nails: normal Neuro General: patient oriented x3, gait normal and CN's II-XI intact bilaterally Cranial nerves: Yes Equal, round and reactive pupils present Cognition (Neuro): normal cognition Gait exam (Neuro): Unsteady gait gait present Motor exam (neuro): 5/5 motor strength to RUE and BLE, 3/5 strenght to LUE Sensory Exam: No Sensory deficit (Neuro) Deep tendon reflexes (DTR's): Right patellar reflex intensity grade: 2+ and Left patellar reflex intensity grade: 2+ Extrem General: Yes normal to inspection, No edema and No calf tenderness Psych Appearance: grossly normal Affect: normal affect Attitude: cooperative Thought process: Normal thought process present Office Procedures Flu Questionnaire Does the patient have a severe egg allergy?: No Does the patient have severe life threatening allergies?: No Does the patient have a fever or illness today?: No Has the patient ever had Guillain-B[place]ig[place] Syndrome?: No Has the patient ever had any past reaction to a flu shot?: No Immunizations flu vacc [id number] 6mos up(PF) 60 mcg(15 mcgx4)/0.5 mL IM syringe Performing Provider: Nikki Naik CNP Performing Location: [facility] Administered by: Zee Solis RN on 12/07/23 11:59 Dose Route Admin Location Dispensed Lot Number Expiration Date NDC Line Servicer 0.5 mL IM Right Deltoid 0.5 mL [id number] 04/02/24 [id number] [employer] VIS Given Date VIS Provided VIS Publication Date 12/07/23 Single Vaccine 21 Eligibility Eligibility Date Funding Source Not [facility] Eligible 12/07/23 Private Assessment and Plan Assessment & Plan (1) Encounter for routine adult physical exam with abnormal findings: Code(s): Z00.01 - Encounter for general adult medical examination with abnormal findings Plan: Significant physical limitation due to left upper extremity hemiparesis secondary to stroke and unsteady gait (hyperextension of right lower extremity with ambulation) Continue current treatment regimen Healthy diet and routine exercise encouraged Advised to ambulate with walker at all times to prevent fall Continue follow-up with specialist as planned He received the flu vaccine in the office today Follow-up in 7 weeks for diabetes and hypertension Return sooner with symptoms or concerns Verbalized understanding and agreed with treatment Orders: Orders Influenza [id number] Immunization 12/07/23 Z23 - Encounter for immunization Coding Level of Care Code Est Pt Prev Care 40-64y(92851) Diagnoses Encounter for routine adult physical exam with abnormal findings Z00.01 Additional Codes PARRISH-7 Assessment Billing - PARRISH-7 Assessment Tool: PARRISH-7 Assessment 28450 ([id number])
== END 2023-12-07 12:12 | disposition home or self-care (01) ==
PROVIDERS: PCP Nurse Practitioner Family; Visit Provider Nurse Practitioner Family
DX: Z23 Encounter for immunization (principal)
CPT/HCPCS: 90471; 90686; 99396

== ENCOUNTER 2024-01-25 06:58 | Outpatient (REF) | payer OTHER, SELFPAY ==
[2024-01-25 07:53] LABS: Hematocrit 38.9 % (42.0-52.0); Hemoglobin 12.8 g/dl (14.0-18.0); Mean Corpuscular HGB Conc 32.9 g/dl (31.0-36.0); Mean Corpuscular Hemoglobin 28.5 pg (27.0-33.0); Mean Corpuscular Volume 86.6 fL (80.0-98.0); Mean Platelet Volume 11.4 fL (9.4-12.4); Platelet Count 247 X10*3/uL (160-400); Red Blood Count 4.49 X10*6/uL (4.60-5.80); Red Cell Distribution Width 12.8 % (11.0-16.0); White Blood Count 10.3 X10*3/uL (4.8-10.8)
[2024-01-25 08:16] LABS: Alanine Aminotransferase 9 U/L (0-40); Albumin Level 4.2 g/dL (3.5-5.0); Alkaline Phosphatase 69 U/L (39-117); Anion Gap 14 (12-20); Aspartate Amino Transferase 11 U/L (5-37); Bilirubin Total 0.3 mg/dL (0.0-1.0); Blood Urea Nitrogen 26 mg/dL (9-16); Calcium 9.6 mg/dL (8.4-10.2); Carbon Dioxide 23 mmol/L (22-29); Chloride 112 mmol/L (96-108); Estimated Glomerular Filt Rate 36; Glucose Random 111 mg/dL (60-115); Potassium 4.5 mmol/L (3.3-5.1); Sodium 144 mmol/L (135-145); Total Protein 7.8 g/dL (6.5-8.0)
[2024-01-25 08:27] LABS: Parathyroid Hormone Intact 150.8 pg/mL (8.7-77.1)
== END 2024-01-25 06:59 | disposition home or self-care (01) ==
LOC: HO.LAB 06:58
PROVIDERS: PCP Nurse Practitioner Family; Visit Provider Internal Medicine Hypertension Specialist
DX: N18.4 Chronic kidney disease, stage 4 (severe) (principal)
CPT/HCPCS: 36415; 80053; 83970; 85027

== ENCOUNTER 2024-01-27 11:24 | Outpatient (AMB) | payer OTHER, SELFPAY ==
[2024-01-27 11:26] VITALS: BP 130/78; PULSE 73; O2SAT 95; BMI 28.0
--- NOTE | 2024-01-27 11:26 | HO.NEPHOV ---
Vital Signs 01/27/24 11:26 Height 5 ft 8 in Weight 184 lb BMI 28.0 BP 130/78 Blood Pressure Location Lt brachial Position Sitting Pulse 73 Pulse Source Pulse Oximeter Pulse Oximetry (%) 95 Oxygen Delivery Method Room Air Intake Visit Reasons: CKD/ Confirmed Fire Control System Installer Required: Yes Accompanied by: Caregiver Allergies amlodipine [From [facility]] Allergy (Severe, Verified 01/27/24 11:31) due to poor renal function ibuprofen Allergy (Severe, Verified 01/27/24 11:31) 2/2 renal function HPI Comments Details: 63-year-old man with a history of CKD and hypertension. Here for follow-up. Today he has no specific complaints today. Accompanied by caregiver. Fire Control System Installer service was used [facility] Medical History Skin lesion Squamous cell carcinoma of skin Encephalopathy Cerebrovascular accident Hypoglycemia unawareness associated with type 2 diabetes mellitus Diabetes type 2, uncontrolled Type 2 diabetes mellitus with diabetic polyneuropathy Essential hypertension Epigastric pain Skin cancer Postoperative bleeding from incision Skin lesion Stroke Type 2 diabetes mellitus with chronic kidney disease Chronic kidney disease, stage 3 Aphagia Unsteady gait Anemia Hypertensive chronic kidney disease with stage 1 through stage 4 chronic kidney disease, or unspecified chronic kidney disease CKD (chronic kidney disease) Hearing loss Preglaucoma Vascular device, implant, or graft complication Bronchitis HTN (hypertension) Hyperlipidemia Hyperlipidemia Vitamin D deficiency Vitamin D deficiency Constipation GERD (gastroesophageal reflux disease) Diabetes Hemiplegia Surgical History History of removal of cyst (~02/09/22) Hx of cataract surgery History of surgical removal of skin lesion History of exploratory laparotomy Family History Father Myocardial infarction Mother Throat cancer Diabetes Family/Other FH: mental illness Brother In good health Sister In good health Sister In good health Daughter In good health Social History 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 Household Members Other:: [facility] Housing: House Do you presently have visiting nurse or other home services: Yes Alcohol intake: former Patient Tobacco Use Status: Former Tobacco user Tobacco use type: Cigarette Cigarette Packs Per Day: 2 Cigarettes Per Day: 40.0 Years Smoked: 16 e-Cigarette/Vaping Use: Never Used Second Hand Smoke Exposure: No Advance Directives Date on File: 12/02/20 service: No Current occupational status: disabled Current occupational exposures/hazards: No Cognitive needs: No Hearing needs: No Vision needs: No Physical Exam Vital Signs: Last Vital Signs Pulse 73 01/27/24 11:26 BP 130/78 01/27/24 11:26 Pulse Ox 95 01/27/24 11:26 Oxygen Delivery Method Room Air 01/27/24 11:26 BMI result Body Mass Index 28.0 Awake. Comfortable. Neck is supple. Mucosa moist. Lungs bilateral scattered rhonchi. Heart S1-S2 heard no gallop. Abdomen soft. Extremities no edema. No involuntary movements. No myoclonus. Results Reviewed Nephrology Results: Hgb 12.8 g/dl (14.0-18.0) L 01/25/24 WBC 10.3 X10*3/uL (4.8-10.8) 01/25/24 Plt Count 247 X10*3/uL (160-400) 01/25/24 Sodium 144 mmol/L (135-145) 01/25/24 Potassium 4.5 mmol/L (3.3-5.1) 01/25/24 Chloride 112 mmol/L (96-108) H 01/25/24 Carbon Dioxide 23 mmol/L (22-29) 01/25/24 BUN 26 mg/dL (9-16) H 01/25/24 Creatinine 1.93 mg/dL (0.5-1.4) H 01/25/24 Calcium 9.6 mg/dL (8.4-10.2) 01/25/24 PTH Intact 150.8 pg/mL (8.7-77.1) H 01/25/24 Urine Protein 30 (1+) mg/dL (Neg-Trace) H 10/26/23 Urine Creatinine 87.56 mg/dL 10/26/23 Protein/Creatinin Ratio 0.29 (<0.2) H 10/26/23 Assessment & Plan Assessment & Plan (1) Chronic kidney disease, stage 3: Code(s): N18.30 - Chronic kidney disease, stage 3 unspecified Category: Medical Qualifiers: Chronic kidney disease stage 3 subtype: stage 3a (GFR 45-59) Qualified Code(s): N18.31 - Chronic kidney disease, stage 3a Plan 63-year-old man with CKD setting of hypertension. Renal function stable at baseline. Goal is to slow the portion disease. Continue to avoid nephrotoxic agents. Keep on losartan for renal protection in view of microalbuminuria. Blood pressure is well controlled No changes were made to his antihypertensive regimen. He should stay on low-sodium diet. Orders: Orders Comprehensive Met. Panel 3 Months N18.31 - Chronic kidney disease, stage 3a, N18.9 - Chronic kidney disease, unspecified Parathyroid Hormone Intact 3 Months N18.31 - Chronic kidney disease, stage 3a Complete Blood Count Auto Diff 3 Months N18.30 - Chronic kidney disease, stage 3 unspecified Coding Level of Care Code Est Pt Level 4 (23237) Diagnoses Stage 3a chronic kidney disease N18.31 Chronic kidney disease stage 3 subtype: stage 3a (GFR 45-59)
== END 2024-01-27 11:44 | disposition home or self-care (01) ==
PROVIDERS: PCP Nurse Practitioner Family; Visit Provider Internal Medicine Hypertension Specialist
DX: N18.31 Chronic kidney disease, stage 3a (principal)
CPT/HCPCS: 99214

== ENCOUNTER → 2024-01-27 11:24 | Outpatient (BNVA) | payer OTHER, SELFPAY | PROVIDERS: PCP Nurse Practitioner Family; Visit Provider Internal Medicine Hypertension Specialist | DX: I12.9 Hypertensive chronic kidney disease with stage 1 through stage 4 chronic kidney disease, or unspecified chronic kidney disease (principal); N18.31 Chronic kidney disease, stage 3a | CPT/HCPCS: 99212 ==

== ENCOUNTER 2024-02-14 11:34 | Outpatient (AMB) | payer OTHER, SELFPAY ==
--- NOTE | 2024-02-14 11:40 | A.OFFPC_ITS ---
Vital Signs 02/14/24 11:41 Height 5 ft 8 in Weight 178 lb 8 oz BMI 27.1 BP 110/60 Blood Pressure Location Lt brachial Position Sitting Pulse 65 Pulse Source Pulse Oximeter Pulse Oximetry (%) 97 Oxygen Delivery Method Room Air Intake Visit Reasons: f/u DM & HTN Intake Note: Patient is here to follow up on HTN, DM. Tobacco Educator Required: Yes Tobacco Educator Language: Citizen Of [place] Information Interpreted: non-clinical & clinical Creative Arts Music Therapist: Present Accompanied by: Staff Allergies amlodipine [From [facility]] Allergy (Severe, Verified 02/14/24 12:05) due to poor renal function ibuprofen Allergy (Severe, Verified 02/14/24 12:05) 2/2 renal function Medication List - Last Reconciled 02/14/24 by Nikki Naik CNP acetaminophen (Tylenol) 650 mg (2 x 325 mg) PO Q6H PRN 30 days apixaban (Eliquis) 5 mg PO BID ascorbic acid (vitamin C) 500 mg PO BID 3 months aspirin 81 mg PO QAM 90 days atorvastatin 80 mg PO BEDTIME 90 days blood sugar diagnostic (FreeStyle Lite Strips) USE TO TEST BLOOD SUGAR FOUR TIMES A DAY blood-glucose meter (FreeStyle Lite Meter kit) As directed cholecalciferol (vitamin D3) 25 mcg PO DAILY 90 days cyclobenzaprine 10 mg PO TID PRN 7 days dextrose (Dex4 Glucose) 15 gm pRN hypoglycemia dulaglutide (Trulicity) 3 mg (0.5 mL) subcut QWEEK 4 weeks empagliflozin (Jardiance) 10 mg PO QAM fluoxetine (Prozac) 40 mg PO DAILY glucose 15 grams PO Q15M PRN hydralazine 50 mg See Protocol PO TID 90 days insulin degludec (Tresiba FlexTouch U-200 insulin) 46 units (0.23 mL) subcut DAILY 30 days lactulose (Enulose) 30 mL PO .q72 h PRN lancets (Easy Touch Safety Lancets) USE 2-3 TIMES A DAY DIRECTED FOR BLOOD GLUCOSE MONITORING lorazepam (Ativan) 0.5 mg PO DAILY PRN losartan 75 mg (1.5 x 50 mg) PO DAILY 1 month metoprolol succinate ER 25 mg PO BEDTIME 28 days miscellaneous medical supply R AFO, Daily As directed, 999 days. Disp #1 miscellaneous medical supply Right lateral sole wedge as directed; multivitamin,tx-minerals (Multi-Vitamin HP/Minerals capsule) 1 cap PO DAILY nifedipine ER (Procardia XL) 30 mg PO DAILY 30 days pen needle, diabetic (Easy Touch) 1 ea miscellaneous TID 28 days polyethylene glycol 3350 17 grams PO BID risperidone (Risperdal) 0.5 mg PO BID sennosides (senna) 8.6 mg PO BID tamsulosin 0.4 mg PO BEDTIME trazodone 200 mg PO BEDTIME ursodiol 300 mg PO BID Tobacco use date assessed: 10/29/23 Dental Screening Dental Screen Date: 12/07/23 HPI HPI Comments History of Present Illness Details 63-year-old mostly Citizen Of [place]-speaking male , from a senior living, presents for hypertension and diabetes follow-up He is accompanied by a senior living staff He admits to taking his medications as prescribed without adverse reactions He offers no complaints and denies acute symptoms at this time REPLACED BY [facility] Medical History Skin lesion Squamous cell carcinoma of skin Encephalopathy Cerebrovascular accident Hypoglycemia unawareness associated with type 2 diabetes mellitus Diabetes type 2, uncontrolled Type 2 diabetes mellitus with diabetic polyneuropathy Essential hypertension Epigastric pain Skin cancer Postoperative bleeding from incision Skin lesion Stroke Type 2 diabetes mellitus with chronic kidney disease Chronic kidney disease, stage 3 Aphagia Unsteady gait Anemia Hypertensive chronic kidney disease with stage 1 through stage 4 chronic kidney disease, or unspecified chronic kidney disease CKD (chronic kidney disease) Hearing loss Preglaucoma Vascular device, implant, or graft complication Bronchitis HTN (hypertension) Hyperlipidemia Hyperlipidemia Vitamin D deficiency Vitamin D deficiency Constipation GERD (gastroesophageal reflux disease) Diabetes Hemiplegia Surgical History History of removal of cyst (~02/09/22) Hx of cataract surgery History of surgical removal of skin lesion History of exploratory laparotomy Family History Father Myocardial infarction Mother Throat cancer Diabetes Family/Other FH: mental illness Brother In good health Sister In good health Sister In good health Daughter In good health Social History 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 Household Members Other:: senior living Housing: House Do you presently have visiting nurse or other home services: Yes Alcohol intake: former Patient Tobacco Use Status: Former Tobacco user Tobacco use type: Cigarette Cigarette Packs Per Day: 2 Cigarettes Per Day: 40.0 Years Smoked: 16 e-Cigarette/Vaping Use: Never Used Second Hand Smoke Exposure: No Advance Directives Date on File: 12/02/20 service: No Current occupational status: disabled Current occupational exposures/hazards: No Cognitive needs: Yes (walker) Hearing needs: No Vision needs: No Questionnaire Thrive Questionnaire Date Thrive assessed: 12/07/23 PARRISH-7 AMB Questionnaire PARRISH-7 Date PARRISH - 7 assessed: 12/07/23 Source: Developed by Drs. Amrai Ortega, Chaparrita Mg, Domingo Cummings and colleagues, with an educational anthony from [employer]. Review of Systems Const Details: Const Denies chills, Denies fatigue, Denies fever(s), Denies headache(s) and Denies weakness ENT Denies dizziness and Denies headache(s) Card Denies chest pain, Denies lightheadedness, Denies dyspnea and Denies other (Palpitations) Resp Denies cough, Denies dyspnea, Denies wheezing and Denies other ( shortness of breath) GI Denies abdominal pain, Denies melena, Denies hematochezia, Denies change in bowel habits, Denies dyspepsia and Denies nausea Denies hematuria and Denies dysuria Musc Denies abnormal gait, Denies myalgias, Denies arthralgias, Denies numbness and Denies tingling Skin/Breast Denies rash, Denies unusual bruising and Denies wounds Neuro Denies abnormal gait, Denies dizziness, Denies headache(s), Denies memory loss, Denies numbness, Denies Sensory deficit (Neuro), Denies tingling and Denies weakness Psych Denies anxiety, Denies depression, Denies memory loss Endo Denies cold intolerance, Denies fatigue, Denies heat intolerance, Denies polydipsia and Denies polyuria Aller/Immun Denies wheezing Physical exam (Primary Care) Vital Signs: Last Vital Signs Pulse 65 02/14/24 11:41 BP 110/60 02/14/24 11:41 Pulse Ox 97 02/14/24 11:41 Oxygen Delivery Method Room Air 02/14/24 11:41 BMI result Body Mass Index 27.1 Tobacco/Smoking Status: Tobacco use Status Tobacco use date assessed 10/29/23 02/14/24 11:52 Patient Tobacco Use Status Former Tobacco user 02/14/24 11:52 Tobacco use type Cigarette 02/14/24 11:52 e-Cigarette/Vaping Use Never Used 02/14/24 11:52 Thrive Assessment: Date of Thrive Assessment Date Thrive assessed 12/07/23 02/14/24 11:52 Const Other: General: no acute distress and well developed Nutritional Appearance: well nourished Orientation/consciousness: patient oriented x3 HENMT Head: Yes normocephalic and Yes atraumatic Eyes General: appearance normal, both eyes and all related structures Pupils: Equal, round and reactive pupils present EOM: EOMs intact bilaterally Resp Effort & Inspection: normal respiratory effort Auscultation: clear to auscultation bilaterally Cardio Rate: regular rate Rhythm: regular rhythm Heart sounds: S1 normal heart sound present, S2 normal heart sound present, no gallops, no murmurs and no rubs GI Palpation (GI): No Abdominal aortic bruit present, Soft to palpation, nontender, No hepatosplenomegaly present and No Rebound tenderness present Auscultation: normal bowel sounds General: Yes no CVA tenderness Back/Spine/Pelvis Back: no CVA tenderness Cervical Spine: cervical ROM normal and No Cervical spine tenderness Thoracic/Lumbar Spine: thoraco-lumbar ROM normal, No pain with thoraco-lumbar ROM, No thoracic spinal tenderness and No lumbar spinal tenderness Extrem General: Yes normal to inspection, No edema and No calf tenderness Skin General: warm and dry. Normal skin color. Normal skin turgor Neuro General: patient oriented x3, gait normal and no focal neuro deficit Cranial nerves: Yes Equal, round and reactive pupils present Cognition (Neuro): normal cognition Gait exam (Neuro): Normal gait present Sensory Exam: No Sensory deficit (Neuro) Psych Appearance: grossly normal Affect: normal affect Attitude: cooperative Thought process: Normal thought process present Results AMB Hemoglobin A1c AMB Hemoglobin A1c 6.6 % Last Edit by SHAI Hart on 02/14/24 12:01 Results Reviewed Results Reviewed: Laboratory Last Values Hgb A1c (Clinic) 6.6 % (4.0-6.0) H 02/14/24 11:39 Assessment and Plan Assessment & Plan (1) HTN (hypertension): Code(s): I10 - Essential (primary) hypertension Qualifiers: Hypertension type: essential hypertension Qualified Code(s): I10 - Essential (primary) hypertension Plan: Blood pressure is 110/60, within goal of less than 130/80 Continue current treatment regimen Low-sodium diet encouraged Follow-up in 3 months or return sooner with symptoms or concerns Verbalized understanding and agreed with treatment plan (2) Diabetes type 2, uncontrolled: Code(s): E11.65 - Type 2 diabetes mellitus with hyperglycemia Qualifiers: Glycemic state: with hypoglycemia Coma presence: without coma Qualified Code(s): E11.649 - Type 2 diabetes mellitus with hypoglycemia without coma Plan: A1c today 6.6%, within goal of less than 7.0% Continue current treatment regimen ADA diet and routine exercise encouraged Follow-up in 3 months Verbalized understanding and agreed with treatment plan Orders: Orders AMB Hemoglobin A1c Today E11.649 - Type 2 diabetes mellitus with hypoglycemia without coma Coding Level of Care Code Est Pt Level 4 (86370) Complex EM visit Add On G2211 Diagnoses Essential hypertension I10 Hypertension type: essential hypertension Uncontrolled type 2 diabetes mellitus with hypoglycemia without coma E11.649 Glycemic state: with hypoglycemia Coma presence: without coma
[2024-02-14 11:41] VITALS: BP 110/60; PULSE 65; O2SAT 97; BMI 27.1
== END 2024-02-14 12:21 | disposition home or self-care (01) ==
PROVIDERS: PCP Nurse Practitioner Family; Visit Provider Nurse Practitioner Family
DX: I10 Essential (primary) hypertension (principal); E11.649 Type 2 diabetes mellitus with hypoglycemia without coma
CPT/HCPCS: 83036; 99214; G2211

== ENCOUNTER 2024-04-27 11:41 | Outpatient (AMB) | payer OTHER, SELFPAY ==
[2024-04-27 11:45] VITALS: BP 152/78; PULSE 61; O2SAT 96; BMI 28.4
--- NOTE | 2024-04-27 11:45 | HO.NEPHOV ---
Vital Signs 04/27/24 11:45 Height 5 ft 8 in Weight 187 lb BMI 28.4 BP 152/78 H Blood Pressure Location Lt brachial Position Sitting Pulse 61 Pulse Source Pulse Oximeter Pulse Oximetry (%) 96 Oxygen Delivery Method Room Air Intake Visit Reasons: CKD STG 3/ 3 MO FU/ Conf Solution Designer Required: Yes Solution Designer Name: [id number] Accompanied by: Caregiver Allergies amlodipine [From [facility]] Allergy (Severe, Verified 04/27/24 11:48) due to poor renal function ibuprofen Allergy (Severe, Verified 04/27/24 11:48) 2/2 renal function HPI Comments Details: 63-year-old man with a history of CKD and hypertension. Here for follow-up. Today he has no specific complaints today. Accompanied by caregiver. Solution Designer service was used FORMERLY [facility], [facility]–1983 Medical History Skin lesion Squamous cell carcinoma of skin Encephalopathy Cerebrovascular accident Hypoglycemia unawareness associated with type 2 diabetes mellitus Diabetes type 2, uncontrolled Type 2 diabetes mellitus with diabetic polyneuropathy Essential hypertension Epigastric pain Skin cancer Postoperative bleeding from incision Skin lesion Stroke Type 2 diabetes mellitus with chronic kidney disease Chronic kidney disease, stage 3 Aphagia Unsteady gait Anemia Hypertensive chronic kidney disease with stage 1 through stage 4 chronic kidney disease, or unspecified chronic kidney disease CKD (chronic kidney disease) Hearing loss Preglaucoma Vascular device, implant, or graft complication Bronchitis HTN (hypertension) Hyperlipidemia Hyperlipidemia Vitamin D deficiency Vitamin D deficiency Constipation GERD (gastroesophageal reflux disease) Diabetes Hemiplegia Surgical History History of removal of cyst (~02/09/22) Hx of cataract surgery History of surgical removal of skin lesion History of exploratory laparotomy Family History Father Myocardial infarction Mother Throat cancer Diabetes Family/Other FH: mental illness Brother In good health Sister In good health Sister In good health Daughter In good health Social History 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 Household Members Other:: nursing home Housing: House Do you presently have visiting nurse or other home services: Yes Alcohol intake: former Patient Tobacco Use Status: Former Tobacco user Tobacco use type: Cigarette Cigarette Packs Per Day: 2 Cigarettes Per Day: 40.0 Years Smoked: 16 e-Cigarette/Vaping Use: Never Used Second Hand Smoke Exposure: No Advance Directives Date on File: 12/02/20 service: No Current occupational status: disabled Current occupational exposures/hazards: No Cognitive needs: Yes (walker) Hearing needs: No Vision needs: No Physical Exam Vital Signs: Last Vital Signs Pulse 61 04/27/24 11:45 BP 152/78 H 04/27/24 11:45 Pulse Ox 96 04/27/24 11:45 Oxygen Delivery Method Room Air 04/27/24 11:45 BMI result Body Mass Index 28.4 Awake. Comfortable. Neck is supple. Mucosa moist. Lungs bilateral scattered rhonchi. Heart S1-S2 heard no gallop. Abdomen soft. Extremities no edema. No involuntary movements. No myoclonus. Results Reviewed Nephrology Results: Hgb 12.8 g/dl (14.0-18.0) L 01/25/24 WBC 10.3 X10*3/uL (4.8-10.8) 01/25/24 Plt Count 247 X10*3/uL (160-400) 01/25/24 Sodium 144 mmol/L (135-145) 01/25/24 Potassium 4.5 mmol/L (3.3-5.1) 01/25/24 Chloride 112 mmol/L (96-108) H 01/25/24 Carbon Dioxide 23 mmol/L (22-29) 01/25/24 BUN 26 mg/dL (9-16) H 01/25/24 Creatinine 1.93 mg/dL (0.5-1.4) H 01/25/24 Calcium 9.6 mg/dL (8.4-10.2) 01/25/24 PTH Intact 150.8 pg/mL (8.7-77.1) H 01/25/24 Urine Protein 30 (1+) mg/dL (Neg-Trace) H 10/26/23 Urine Creatinine 87.56 mg/dL 10/26/23 Protein/Creatinin Ratio 0.29 (<0.2) H 10/26/23 Assessment & Plan Assessment & Plan (1) CKD (chronic kidney disease) stage 4, GFR 15-29 ml/min: Code(s): N18.4 - Chronic kidney disease, stage 4 (severe) Category: Medical (2) Chronic kidney disease, stage 3: Code(s): N18.30 - Chronic kidney disease, stage 3 unspecified Category: Medical Qualifiers: Chronic kidney disease stage 3 subtype: stage 3a (GFR 45-59) Qualified Code(s): N18.31 - Chronic kidney disease, stage 3a Plan 63-year-old man with CKD setting of hypertension. Renal function stable at baseline. Goal is to slow the progression of renal disease. Continue to avoid nephrotoxic agents. Keep on losartan for renal protection in view of microalbuminuria. Blood pressure is well controlled at the facility. Office reading was elevated today. All outside office readings were reviewed No changes were made to his antihypertensive regimen. He should stay on low-sodium diet. Orders: Orders Basic Metabolic Panel Today N18.4 - Chronic kidney disease, stage 4 (severe) Coding Level of Care Code Est Pt Level 4 (03908) Diagnoses CKD (chronic kidney disease) stage 4, GFR 15-29 ml/min N18.4 Stage 3a chronic kidney disease N18.31 Chronic kidney disease stage 3 subtype: stage 3a (GFR 45-59)
== END 2024-04-27 12:02 | disposition home or self-care (01) ==
PROVIDERS: PCP Nurse Practitioner Family; Visit Provider Internal Medicine Hypertension Specialist
DX: N18.4 Chronic kidney disease, stage 4 (severe) (principal); N18.31 Chronic kidney disease, stage 3a
CPT/HCPCS: 99214

== ENCOUNTER → 2024-04-27 11:41 | Outpatient (BNVA) | payer OTHER, SELFPAY | PROVIDERS: PCP Nurse Practitioner Family; Visit Provider Internal Medicine Hypertension Specialist | DX: I12.9 Hypertensive chronic kidney disease with stage 1 through stage 4 chronic kidney disease, or unspecified chronic kidney disease (principal); N18.31 Chronic kidney disease, stage 3a; N18.4 Chronic kidney disease, stage 4 (severe) | CPT/HCPCS: 99212 ==

== ENCOUNTER 2024-04-27 12:11 | Outpatient (REF) | payer OTHER, SELFPAY ==
[2024-04-27 13:13] LABS: MANUAL DIFF FLAG NO
[2024-04-27 13:30] LABS: Alanine Aminotransferase 7 U/L (0-40); Albumin Level 4.1 g/dL (3.5-5.0); Alkaline Phosphatase 81 U/L (39-117); Anion Gap 13 (12-20); Aspartate Amino Transferase 11 U/L (5-37); Basophils Absolute Auto 0.1 X10*3/uL (0.0-0.2); Basophils Percent Auto 0.6 % (0-2); Bilirubin Total 0.2 mg/dL (0.0-1.0); Blood Urea Nitrogen 21 mg/dL (9-16); Calcium 9.3 mg/dL (8.4-10.2); Carbon Dioxide 27 mmol/L (22-29); Chloride 107 mmol/L (96-108); Eosinophils Absolute Auto 0.3 X10*3/uL (0.0-0.4); Eosinophils Percent Auto 2.7 % (0-4); Estimated Glomerular Filt Rate 38; Glucose Random 129 mg/dL (60-115); Hematocrit 36.5 % (42.0-52.0); Hemoglobin 12.2 g/dl (14.0-18.0); Imm Gran Abs Auto 0.04 X10*3/uL (0.00-0.03); Imm Gran Pct Auto 0.4 % (0.0-0.4); Lymphocytes Absolute Auto 2.7 X10*3/uL (1.2-4.9); Lymphocytes Percent Auto 25.2 % (20-40); Mean Corpuscular HGB Conc 33.4 g/dl (31.0-36.0); Mean Corpuscular Hemoglobin 29.1 pg (27.0-33.0); Mean Corpuscular Volume 87.1 fL (80.0-98.0); Monocytes Absolute Auto 0.8 X10*3/uL (0.1-1.2); Monocytes Percent Auto 7.5 % (2-11); Neutrophils Absolute Auto 6.8 x10*3/uL (2.0-8.3); Neutrophils Percent Auto 63.6 % (45-73); Platelet Count 231 X10*3/uL (160-400); Potassium 4.3 mmol/L (3.3-5.1); Red Blood Count 4.19 X10*6/uL (4.60-5.80); Red Cell Distribution Width 13.8 % (11.0-16.0); Sodium 143 mmol/L (135-145); Total Protein 7.5 g/dL (6.5-8.0); White Blood Count 10.7 X10*3/uL (4.8-10.8)
[2024-04-27 13:46] LABS: Parathyroid Hormone Intact 77.5 pg/mL (8.7-77.1)
== END 2024-04-27 12:12 | disposition home or self-care (01) ==
LOC: HO.10HDL 12:11
PROVIDERS: Visit Provider Internal Medicine Hypertension Specialist
DX: N18.30 Chronic kidney disease, stage 3 unspecified (principal); N18.9 Chronic kidney disease, unspecified; N18.31 Chronic kidney disease, stage 3a
CPT/HCPCS: 36415; 80053; 83970; 85025

== ENCOUNTER 2024-05-16 03:47 | Emergency (ER) | payer OTHER, SELFPAY ==
[2024-05-16] VITALS (7 sets, daily range): BP systolic 134–185; BP diastolic 65–89; PULSE 60–76; RESP 17–20; TEMP 36.2–37.2; O2SAT 94–99; BMI 26.6
--- NOTE | ~2024-05-16 | CT_ITS ---
Study: Unenhanced CT of the brain and cervical spine Indication: Fall with head injury Comparison: 10/21/2023 Technique: Continuous helical imaging obtained through the head and cervical spine without IV contrast. Reconstructed images performed in the coronal and sagittal planes.This CT examination was performed using dose optimization techniques as appropriate, variously including the following: *Automated exposure control *Adjustment of mA and/or kV according to patient size (this includes techniques or standardized protocols for targeted exams where dose is matched to indication/reason for exam; i.e. extremities or head) *Use of iterative reconstruction technique TOTAL EXAM DLP: 791 and 434 mGy-cm, head and cervical spine respectively. FINDINGS: Head: Mild underlying atrophy. Stable bilateral chronic MCA and left JUANPABLO infarcts with encephalomalacia/gliosis. No evolving infarct, mass lesion, mass effect, midline shift, hemorrhage or extra-axial fluid collections. Lens extractions have been performed. Chronic left lamina papyracea fracture with extraconal fat extending into defect. Mild bilateral ethmoid sinus disease. Bony structures are intact. Soft tissues are unremarkable. Cervical spine: Mild cervical lordotic straightening. Mild vertebral body height loss of C5 with sclerosis and spurring likely degenerative. C5-C6 disc space narrowing mild spinal canal and moderate bilateral neuroforaminal narrowings. Vascular calcifications. Unremarkable thyroid. Nonspecific cervical lymph nodes. CT/CT head/brain wo IV con IMPRESSION: No acute intracranial pathology. Underlying atrophy and old infarcts. No acute posttraumatic cervical spine bony pathology. Cervical lordotic straightening and degenerative changes C5-C6.
--- NOTE | ~2024-05-16 | CT_ITS ---
Study: Unenhanced CT of the brain and cervical spine Indication: Fall with head injury Comparison: 10/21/2023 Technique: Continuous helical imaging obtained through the head and cervical spine without IV contrast. Reconstructed images performed in the coronal and sagittal planes.This CT examination was performed using dose optimization techniques as appropriate, variously including the following: *Automated exposure control *Adjustment of mA and/or kV according to patient size (this includes techniques or standardized protocols for targeted exams where dose is matched to indication/reason for exam; i.e. extremities or head) *Use of iterative reconstruction technique TOTAL EXAM DLP: 791 and 434 mGy-cm, head and cervical spine respectively. FINDINGS: Head: Mild underlying atrophy. Stable bilateral chronic MCA and left JUANPABLO infarcts with encephalomalacia/gliosis. No evolving infarct, mass lesion, mass effect, midline shift, hemorrhage or extra-axial fluid collections. Lens extractions have been performed. Chronic left lamina papyracea fracture with extraconal fat extending into defect. Mild bilateral ethmoid sinus disease. Bony structures are intact. Soft tissues are unremarkable. Cervical spine: Mild cervical lordotic straightening. Mild vertebral body height loss of C5 with sclerosis and spurring likely degenerative. C5-C6 disc space narrowing mild spinal canal and moderate bilateral neuroforaminal narrowings. Vascular calcifications. Unremarkable thyroid. Nonspecific cervical lymph nodes. CT/CT cervical spine wo IV con IMPRESSION: No acute intracranial pathology. Underlying atrophy and old infarcts. No acute posttraumatic cervical spine bony pathology. Cervical lordotic straightening and degenerative changes C5-C6.
--- NOTE | ~2024-05-16 | XR_ITS ---
EXAMINATION: XR SHOULDER, LEFT CLINICAL INFORMATION: Fall COMPARISON: None available. TECHNIQUE: AP external rotation, Grashey, scapular Y, and axillary views of the left shoulder. FINDINGS: No acute fracture or dislocation. Alignment and articulations are maintained. Old appearing upper lateral rib deformity. XR/XR shoulder LT min 2V IMPRESSION: No acute bony pathology
--- NOTE | 2024-05-16 07:05 | PC.NURSE ---
report given to Magnolia ROMO
--- NOTE | 2024-05-16 07:53 | ED_ITS ---
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 Corbin HPI narrative: 63-year-old male with past medical history of anemia, CVA with left-sided deficit and slurred speech, GERD, CKD, DVT on Eliquis, DM, HLD, HTN brought in by EMS for evaluation of unwitnessed fall, patient stated that he was sitting on the toilet when he tried to get up he fell hitting left side of his head, and complaining of left shoulder pain, patient now feels fine and [facility], declined using any drugs. Related Data Home Medications ?Medication ?Instructions ?Recorded ?Confirmed lorazepam 0.5 mg tablet (Ativan) 0.5 mg PO DAILY PRN Anxiety 07/24/20 02/14/24 glucose 5 % oral solution 15 g PO Q15M PRN hypoglycemia 12/28/22 02/14/24 blood-glucose meter (FreeStyle 05/17/23 02/14/24 Lite Meter kit) trazodone 100 mg tablet 200 mg PO BEDTIME 09/29/23 02/14/24 fluoxetine 40 mg capsule (Prozac) 40 mg PO DAILY 01/27/24 02/14/24 brexpiprazole 1 mg tablet (Rexulti) 1 mg PO BEDTIME 04/27/24 risperidone 0.5 mg tablet 0.5 mg PO DAILY 04/27/24 (Risperdal) Previous Rx's ?Medication ?Instructions ?Recorded miscellaneous medical supply #1 ea 07/11/21 miscellaneous medical supply See Rx Instructions miscellaneous 05/14/22 .COMPLEX #1 ea hydralazine 50 mg tablet 50 mg PO TID 90 days #270 tabs 11/05/22 aspirin 81 mg tablet,delayed 81 mg PO QAM 90 days #90 tabs 07/05/23 release tamsulosin 0.4 mg capsule 0.4 mg PO BEDTIME #90 caps 07/05/23 lancets 26 gauge (Easy Touch #100 ea 08/09/23 Safety Lancets) acetaminophen 325 mg tablet 650 mg (2 x 325 mg) PO Q6H PRN 09/29/23 (Tylenol) temp, headache or general discomfort 30 days #120 tabs lactulose 10 gram/15 mL oral 30 ml PO .q72 h PRN constipation 09/29/23 solution (Enulose) #473 mL cholecalciferol (vitamin D3) 25 25 mcg PO DAILY 90 days #90 tabs 10/29/23 mcg (1,000 unit) tablet cyclobenzaprine 10 mg tablet 10 mg PO TID PRN muscle spasm 7 11/08/23 days #21 tabs losartan 50 mg tablet 75 mg (1.5 x 50 mg) PO DAILY 1 12/27/23 month #45 tabs dextrose 15 gram/33 gram oral gel See Rx Instructions PO .COMPLEX 12/31/23 packet (Dex4 Glucose) #198 grams insulin degludec 200 unit/mL (3 46 unit (0.23 mL) subcut DAILY 30 02/04/24 mL) subcutaneous pen ( #6.9 mL FlexTouch U-200 insulin) nifedipine 30 mg tablet,extended 30 mg PO DAILY 30 days #30 tabs 02/04/24 release 24 hr (Procardia XL) blood sugar diagnostic (FreeStyle #100 ea 02/22/24 Lite Strips) pen needle, diabetic 31 gauge x 1 ea miscellaneous TID 28 days #84 02/22/24 5/16 (Easy Touch) ea dulaglutide 3 mg/0.5 mL 3 mg (0.5 mL) subcut QWEEK #2 mL 03/16/24 subcutaneous pen injector ([facility]) ascorbic acid (vitamin C) 500 mg 500 mg PO BID 3 months #180 tabs 03/28/24 tablet atorvastatin 80 mg tablet 80 mg PO BEDTIME 90 days #90 tabs 04/20/24 apixaban 5 mg tablet (Eliquis) 5 mg PO BID #56 tabs 05/04/24 empagliflozin 10 mg tablet 10 mg PO QAM #28 tabs 05/04/24 (Jardiance) metoprolol succinate 25 mg 25 mg PO BEDTIME 28 days #28 tabs 05/04/24 tablet,extended release 24 hr multivitamin,tx-minerals 1 cap PO DAILY #90 caps 05/04/24 (Multi-Vitamin HP/Minerals capsule) polyethylene glycol 3350 17 17 g PO BID #1,020 grams 08/01/24 gram/dose oral powder sennosides 8.6 mg tablet (senna) 8.6 mg PO BID #56 tabs 05/04/24 ursodiol 300 mg capsule 300 mg PO BID #56 caps 05/04/24 Allergies Allergy/AdvReac Type Severity Reaction Status Date / Time amlodipine [From [facility]] Allergy Severe due to Verified 05/16/24 04:07 poor renal function ibuprofen Allergy Severe 2/2 renal Verified 05/16/24 04:07 function Review of Systems 2 Review of Systems: All other systems are reviewed and are negative Constitutional: Reports as per HPI and Reports no additional constitutional complaints Eyes: Reports as per HPI and Reports no additional eye complaints Reports system reviewed and no additional complaints, except as documented Cardiovascular: Reports as per HPI and Reports no additional cardiovascular complaints Respiratory: Reports as per HPI and Reports no additional respiratory complaints Gastrointestinal: Reports as per HPI and Reports no additional gastrointestinal complaints Genitourinary: Reports no additional female genitourinary complaints Musculoskeletal: Reports no additional musculoskeletal complaints Skin/Breast: Reports system reviewed and no additional complaints, except as docu Psychiatric: Reports no additional psychiatric complaints Endocrine: Reports no additional endocrine complaints Hematologic/Lymphatic: Reports no additional hematologic/lymphatic complaints Allergic/Immunologic: Reports no additional allergic/immunologic complaints Reports system reviewed and no additional complaints, except as documented and Reports Abnormal speech present PENDING SALE TO [facility] Past Medical History Medical History Skin lesion Squamous cell carcinoma of skin Encephalopathy Cerebrovascular accident Hypoglycemia unawareness associated with type 2 diabetes mellitus Diabetes type 2, uncontrolled Type 2 diabetes mellitus with diabetic polyneuropathy Essential hypertension Epigastric pain Skin cancer Postoperative bleeding from incision Skin lesion Stroke Type 2 diabetes mellitus with chronic kidney disease Chronic kidney disease, stage 3 Aphagia Unsteady gait Anemia Hypertensive chronic kidney disease with stage 1 through stage 4 chronic kidney disease, or unspecified chronic kidney disease CKD (chronic kidney disease) Hearing loss Preglaucoma Vascular device, implant, or graft complication Bronchitis HTN (hypertension) Hyperlipidemia Hyperlipidemia Vitamin D deficiency Vitamin D deficiency Constipation GERD (gastroesophageal reflux disease) Diabetes Hemiplegia Surgical History History of removal of cyst (~02/09/22) Hx of cataract surgery History of surgical removal of skin lesion History of exploratory laparotomy Family History Family History Father Myocardial infarction Mother Throat cancer Diabetes Family/Other FH: mental illness Brother In good health Sister In good health Sister In good health Daughter In good health Social History Social History 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 Household Members Other:: penitentiary Housing: House Do you presently have visiting nurse or other home services: Yes Alcohol intake: former Patient Tobacco Use Status: Former Tobacco user Tobacco use type: Cigarette Cigarette Packs Per Day: 2 Cigarettes Per Day: 40.0 Years Smoked: 16 e-Cigarette/Vaping Use: Never Used Second Hand Smoke Exposure: No Advance Directives: Yes Advance Directives on File: Yes Advance Directives Date on File: 12/02/20 Do you have a plan to hurt others: No Plan service: No Current occupational status: disabled Current occupational exposures/hazards: No Cognitive needs: Yes (walker) Hearing needs: No Vision needs: No Physical Exam ED Vital Signs: Vital Signs - 24 hr 05/16/24 03:55 05/16/24 03:57 05/16/24 05:51 Temperature 98.0 F 98 F 98.9 F Pulse Rate 66 66 68 Respiratory Rate 17 17 17 Blood Pressure 134/65 134/65 134/65 Pulse Oximetry 94 94 95 Oxygen Delivery Method Room Air Room Air 05/16/24 08:00 05/16/24 10:00 Temperature 97.1 F 98.1 F Pulse Rate 76 63 Respiratory Rate 18 20 Blood Pressure 153/66 H 148/89 H Pulse Oximetry 95 96 Oxygen Delivery Method Room Air Room Air BMI result Body Mass Index 26.6 Vital signs have been reviewed and appear to be correct. Blood pressure elevated. Heart rate normal. Respiratory rate normal. Temperature normal. Oxygen saturation normal. Appearance: Alert. Oriented X3. No acute distress. Head: Normal external exam. Normocephalic. Left temporal tenderness, step-off, no hematoma. No Matthews signs noted. No raccoon eyes noted Eyes: PERRLA. EOMI. Conjunctiva and sclera normal. Eyelids normal. ENT: TM's Normal. Pharynx normal. Uvula midline. Moist mucous membranes. No trismus noted. No drooling noted. No muffled voice noted. Neck: Normal inspection. Neck supple. FROM. No adenopathy. Thyroid Normal. No meningeal signs. No neck mass noted. CVS: Normal heart rate and rhythm. Heart sound normal. No murmurs noted. Pulses normal throughout. Respiratory: No respiratory distress. Painless inspiration. Breath sounds normal. No wheezes/rales/rhonchi noted. Chest nontender. No accessory muscle usage noted or decreased air movement noted. Abdomen: Soft and nontender. Bowel sounds normal in all 4 quadrants. No distention noted. No organomegaly noted. No visible injury noted. Back: No CVA tenderness. Full range of motion noted. Skin: Skin warm and dry. Normal skin color. Normal skin turgor. No rashes/lesions/lacerations noted. Extremities: No lower extremity edema. Extremities exhibit normal range of motion. Extremities nontender. Neuro: Oriented X 3. Cranial nerve exam: II-XII are grossly intact No motor deficit. No sensory deficit. Reflexes normal. Course Reevaluation(s) Reevaluation #1: Patient is AAO x3, hungry asking for food tolerated p.o. intake, negative CT/C- spine, labs at baseline. [facility]. Time: 12:17 Medical Decision Making Differential Diagnosis Differential Diagnoses: The differential diagnosis associated with the presentation includes (Closed head injury, cervical spine injury, electrolyte derangement, dehydration, severe anemia, left shoulder fracture, left shoulder dislocation.) Admission/Observation Consideration of admission/observation: Escalation of care including admission/observation considered Lab Data MDM Lab Attestation statement: I reviewed the patient's lab results. 05/16/24 08:57 05/16/24 08:57 Labs: Lab Results 05/16/24 05/16/24 Range/Units 08:57 09:55 WBC 8.3 (4.8-10.8) X10*3/uL RBC 4.55 L (4.60-5.80) X10*6/uL Hgb 13.3 L (14.0-18.0) g/dl Hct 39.6 L (42.0-52.0) % MCV 87.0 (80.0-98.0) fL MCH 29.2 (27.0-33.0) pg MCHC 33.6 (31.0-36.0) g/dl RDW 13.3 (11.0-16.0) % Plt Count 248 (160-400) X10*3/uL MPV 9.9 (9.4-12.4) fL Immature Gran % (Auto) 0.4 (0.0-0.4) % Neut % (Auto) 60.8 (45-73) % Lymph % (Auto) 28.2 (20-40) % Early % (Auto) 7.6 (2-11) % Eos % (Auto) 2.5 (0-4) % Baso % (Auto) 0.5 (0-2) % Lymph # (Auto) 2.4 (1.2-4.9) X10*3/uL Early # (Auto) 0.6 (0.1-1.2) X10*3/uL Eos # (Auto) 0.2 (0.0-0.4) X10*3/uL Baso # (Auto) 0.0 (0.0-0.2) X10*3/uL Abs Immat Gran (auto) 0.03 (0.00-0.03) X10*3/uL Absolute Neuts (auto) 5.1 (2.0-8.3) x10*3/uL Absolute Nucleated RBC 0.000 (0.0-0.012) X10*3/uL Nucleated RBC % (auto) 0.0 (0.0-0.2) /100WBC Sodium 145 (135-145) mmol/L Potassium 4.5 (3.3-5.1) mmol/L Chloride 109 H (96-108) mmol/L Carbon Dioxide 30 H (22-29) mmol/L Anion Gap 11 L (12-20) BUN 20 H (9-16) mg/dL Creatinine 1.77 H (0.5-1.4) mg/dL Estim Creat Clear Calc 42.4 Estimated GFR 39 POC Glucose 98 (60-115) mg/dL Random Glucose 112 (60-115) mg/dL Calcium 10.0 D (8.4-10.2) mg/dL Total Bilirubin 0.3 (0.0-1.0) mg/dL Direct Bilirubin 0.1 (0.0-0.5) mg/dL AST 17 (5-37) U/L ALT 9 (0-40) U/L Alkaline Phosphatase 81 (39-117) U/L Troponin I High Sens 3.9 (<3.5-35.0) ng/L Total Protein 7.7 (6.5-8.0) g/dL Albumin 4.2 (3.5-5.0) g/dL Lipase 35 (8-78) U/L Independent Interpretation I performed an independent interpretation of an: Plain X-Ray (Left shoulder: No acute bony pathology.) and CT Scan (Head/C-spine:No acute intracranial pathology. Underlying atrophy and old infarcts. No acute posttraumatic cervical spine bony pathology. Cervical lordotic straightening and degenerative changes C5-C6.) Radiology Impression Discussion of test interpretation with radiology: I have reviewed the radiologist's reading. Discharge Plan Discharge Clinical Impression: Closed head injury, Contusion of left shoulder Patient Disposition: Xfer SNF Instructions: Head Injury (ED) Prescriptions: No Action hydralazine 50 mg tablet 50 mg PO TID 90 Days Qty: 270 2RF Protocol: Hold for SBP< HOLD for SBP < : 110 (DME) lancets [Easy Touch Safety Lancets] 26 gauge misc See Rx Instructions .ROUTE .COMPLEX Qty: 100 11RF Dose Instruction: USE 2-3 TIMES A DAY DIRECTED FOR BLOOD GLUCOSE MONITORING Rx Instructions: USE 2-3 TIMES A DAY DIRECTED FOR BLOOD GLUCOSE MONITORING losartan 50 mg tablet 75 mg PO DAILY 30 Days Qty: 45 10RF dextrose [Dex4 Glucose] 15 gram/33 gram gel in packet See Rx Instructions PO .COMPLEX Qty: 198 4RF Rx Instructions: 15 gm pRN hypoglycemia Tresiba FlexTouch U-200 200 unit/mL (3 mL) insulin pen 46 unit subcut DAILY 30 Days Qty: 6.9 5RF Rx Instructions: Report any blood sugars <70 nifedipine [Procardia XL] 30 mg tablet extended release 24hr 30 mg PO DAILY 30 Days Qty: 30 3RF (DME) FreeStyle Lite Strips Strip See Rx Instructions .ROUTE .COMPLEX Qty: 100 11RF Dose Instruction: USE TO TEST BLOOD SUGAR FOUR TIMES A DAY Rx Instructions: USE TO TEST BLOOD SUGAR FOUR TIMES A DAY pen needle, diabetic [Easy Touch] 31 gauge x 5/16 needle 1 ea miscellaneous TID 28 Days Qty: 84 11RF Trulicity 3 mg/0.5 mL pen injector 3 mg subcut QWEEK Qty: 2 4RF ascorbic acid (vitamin C) 500 mg tablet 500 mg PO BID 90 Days Qty: 180 0RF atorvastatin 80 mg tablet 80 mg PO BEDTIME 90 Days Qty: 90 0RF Rx Instructions: replaces simvastatin 40 mg qhs Eliquis 5 mg tablet 5 mg PO BID Qty: 56 11RF Rx Instructions: Report any excessive bleeding Jardiance 10 mg tablet 10 mg PO QAM Qty: 28 6RF metoprolol succinate 25 mg tablet extended release 24 hr 25 mg PO BEDTIME 28 Days Qty: 28 11RF Rx Instructions: Do not crush/chew Multi-Vitamin HP/Minerals Capsule 1 cap PO DAILY Qty: 90 1RF Rx Instructions: take for supplement daily with food sennosides [senna] 8.6 mg tablet 8.6 mg PO BID Qty: 56 11RF polyethylene glycol 3350 17 gram/dose powder 17 g PO BID Qty: 1020 8RF ursodiol 300 mg capsule 300 mg PO BID Qty: 56 11RF (DME) miscellaneous medical supply Misc See Rx Instructions .ROUTE .MEDSUPPLY Qty: 1 0RF Rx Instructions: R AFO, Daily As directed, 999 days. Disp #1 lorazepam [Ativan] 0.5 mg tablet 0.5 mg PO DAILY PRN (Reason: Anxiety) risperidone [Risperdal] 0.5 mg tablet 0.5 mg PO DAILY miscellaneous medical supply Misc See Rx Instructions miscellaneous .COMPLEX Qty: 1 1RF Rx Instructions: Right lateral sole wedge as directed; cyclobenzaprine 10 mg tablet 10 mg PO TID PRN (Reason: muscle spasm) 7 Days Qty: 21 0RF (DME) blood-glucose meter [FreeStyle Lite Meter] Kit See Rx Instructions .Route Rx Instructions: As directed aspirin 81 mg tablet,delayed release (DR/EC) 81 mg PO QAM 90 Days Qty: 90 3RF Rx Instructions: Do not crush/chew tamsulosin 0.4 mg capsule 0.4 mg PO BEDTIME Qty: 90 3RF trazodone 100 mg tablet 200 mg PO BEDTIME lactulose [Enulose] 10 gram/15 mL solution 30 ml PO .q72 h PRN (Reason: constipation) Qty: 473 3RF Rx Instructions: Take every 3 days or every 72 hours as needed. If no effect after 24 hours from dose, contact PCP acetaminophen [Tylenol] 325 mg tablet 650 mg PO Q6H PRN (Reason: temp, headache or general discomfort) 30 Days Qty: 120 2RF Rx Instructions: Take two 325mg tabs every 6 hours as needed for fever over 101, headache, or general discomfort. Contact PCP if symptoms persist greater than 24 hours. cholecalciferol (vitamin D3) 25 mcg (1,000 unit) tablet 25 mcg PO DAILY 90 Days Qty: 90 4RF glucose 5 % solution 15 g PO Q15M PRN (Reason: hypoglycemia) fluoxetine [Prozac] 40 mg capsule 40 mg PO DAILY Rexulti 1 mg tablet 1 mg PO BEDTIME Print Language: Telugu
--- NOTE | 2024-05-16 07:55 | ECG_ITS ---
Test Reason : syncope Blood Pressure : / mmHG Vent. Rate : 063 BPM Atrial Rate : 063 BPM P-R Int : 126 ms QRS Dur : 078 ms QT Int : 420 ms P-R-T Axes : 045 -18 023 degrees QTc Int : 429 ms Sinus rhythm with Premature atrial complexes Otherwise normal ECG When compared with ECG of 31-OCT-2023 13:49, Premature atrial complexes are now Present Referred By: Amalia Corbin Electronically Signed By:ELHAM JOE
--- NOTE | 2024-05-16 07:58 | PC.NURSE ---
pt to xray at this time. will resume care of pt when pt returns.
--- NOTE | 2024-05-16 08:27 | PC.NURSE ---
vss and up to date. labs/ekg performed by [facility]. plan of care ongoing.
[2024-05-16 09:02] LABS: MANUAL DIFF FLAG NO
[2024-05-16 09:04] LABS: Basophils Percent Auto 0.5 % (0-2); Eosinophils Absolute Auto 0.2 X10*3/uL (0.0-0.4); Eosinophils Percent Auto 2.5 % (0-4); Hematocrit 39.6 % (42.0-52.0); Hemoglobin 13.3 g/dl (14.0-18.0); Imm Gran Abs Auto 0.03 X10*3/uL (0.00-0.03); Imm Gran Pct Auto 0.4 % (0.0-0.4); Lymphocytes Absolute Auto 2.4 X10*3/uL (1.2-4.9); Lymphocytes Percent Auto 28.2 % (20-40); Mean Corpuscular HGB Conc 33.6 g/dl (31.0-36.0); Mean Corpuscular Hemoglobin 29.2 pg (27.0-33.0); Mean Platelet Volume 9.9 fL (9.4-12.4); Monocytes Absolute Auto 0.6 X10*3/uL (0.1-1.2); Monocytes Percent Auto 7.6 % (2-11); Neutrophils Absolute Auto 5.1 x10*3/uL (2.0-8.3); Neutrophils Percent Auto 60.8 % (45-73); Platelet Count 248 X10*3/uL (160-400); Red Blood Count 4.55 X10*6/uL (4.60-5.80); Red Cell Distribution Width 13.3 % (11.0-16.0); White Blood Count 8.3 X10*3/uL (4.8-10.8)
[2024-05-16 09:23] LABS: Alanine Aminotransferase 9 U/L (0-40); Albumin Level 4.2 g/dL (3.5-5.0); Alkaline Phosphatase 81 U/L (39-117); Anion Gap 11 (12-20); Aspartate Amino Transferase 17 U/L (5-37); Bilirubin Direct 0.1 mg/dL (0.0-0.5); Bilirubin Total 0.3 mg/dL (0.0-1.0); Blood Urea Nitrogen 20 mg/dL (9-16); Carbon Dioxide 30 mmol/L (22-29); Chloride 109 mmol/L (96-108); Creatinine Clr Calc Pharmacy 42.4; Estimated Glomerular Filt Rate 39; Glucose Random 112 mg/dL (60-115); Lipase 35 U/L (8-78); Potassium 4.5 mmol/L (3.3-5.1); Sodium 145 mmol/L (135-145); Total Protein 7.7 g/dL (6.5-8.0)
[2024-05-16 09:29] LABS: Troponin-I High Sensitivity 3.9 ng/L (<3.5-35.0)
[2024-05-16 10:00] LABS: Glucose, Whole Blood 98 mg/dL (60-115)
--- NOTE | 2024-05-16 12:30 | PC.NURSE ---
pt ambulates w/ a walker baseline. ambulation trial completed - pt ambulates steadily w/ a walker.
--- NOTE | 2024-05-16 12:54 | PC.NURSE ---
[facility]idential called - RN to RN/warm hand off given. RN at residential currently speaking w/ manager marketing sales in regards to arranging transportation as pt is up for discharge at this time. plan of care ongoing.
== END 2024-05-16 13:36 | disposition skilled nursing facility (03) ==
PROVIDERS: Emergency Provider Emergency Medicine
DX: S09.90XA Unspecified injury of head, initial encounter (principal); S40.012A Contusion of left shoulder, initial encounter; W18.11XA Fall from or off toilet without subsequent striking against object, initial encounter; R55 Syncope and collapse; E11.9 Type 2 diabetes mellitus without complications; I10 Essential (primary) hypertension; E78.5 Hyperlipidemia, unspecified; Y93.89 Activity, other specified; Y92.041 Bathroom in boarding-house as the place of occurrence of the external cause; Y99.9 Unspecified external cause status; Z79.4 Long term (current) use of insulin; Z79.85 Long-term (current) use of injectable non-insulin antidiabetic drugs; Z79.899 Other long term (current) drug therapy
CPT/HCPCS: 36415; 70450; 72125; 73030; 80048; 80076; 82947; 83690; 84484; 85025; 93005; 99284

== ENCOUNTER → 2024-05-16 07:55 | Outpatient (BNV) | payer OTHER, SELFPAY | PROVIDERS: Emergency Provider Emergency Medicine; Visit Provider Internal Medicine | DX: R55 Syncope and collapse (principal); I49.1 Atrial premature depolarization | CPT/HCPCS: 93010 ==

== ENCOUNTER 2024-05-22 11:21 | Outpatient (AMB) | payer OTHER, SELFPAY ==
--- NOTE | 2024-05-22 11:24 | MHC.PC.OV ---
Vital Signs 05/22/24 11:35 Height 5 ft 7 in Weight 180 lb 2 oz BMI 28.2 BP 128/68 Blood Pressure Location Lt brachial Position Sitting Respiration 16 Pulse 70 Pulse Source Pulse Oximeter Temp 97.7 F Temp Source Oral Pulse Oximetry (%) 98 Oxygen Delivery Method Room Air Intake Visit Reasons: 3 mos DM, HTN Intake Note: patient here for 3 month follow up on DM and HTN. Nurse Administrator Required: Yes Nurse Administrator Language: Armenian Accompanied by: Other Relationship Allergies amlodipine [From [facility]] Allergy (Severe, Verified 05/22/24 11:30) due to poor renal function ibuprofen Allergy (Severe, Verified 05/22/24 11:30) 2/2 renal function Tobacco use date assessed: 05/22/24 Dental Screening Dental Screen Date: 05/22/24 Did you have a dental visit in the last 12 months?: Yes Did you have a dental problem in the last 6 months where you did not have access to dental care?: No Was dental information given to patient?: Patient has dentist HPI HPI Comments History of Present Illness Details 63-year-old mostly Armenian-speaking male, from a nursing home, presents for hypertension and diabetes follow-up He is accompanied by a nursing home staff He admits to taking his medications as prescribed without adverse reactions He notes occasional itching to his left cox with irritation on the skin He [place] [facility] [place] seen last month) and cardiology (was seen on 06/29/2023; has not returned for his 6 months follow up) He is also followed by podiatry and prosthesis and orthotics Interpretation by professional web development director via electronic tablet [facility] Medical History Skin lesion Squamous cell carcinoma of skin Encephalopathy Cerebrovascular accident Hypoglycemia unawareness associated with type 2 diabetes mellitus Diabetes type 2, uncontrolled Type 2 diabetes mellitus with diabetic polyneuropathy Essential hypertension Epigastric pain Skin cancer Postoperative bleeding from incision Skin lesion Stroke Type 2 diabetes mellitus with chronic kidney disease Chronic kidney disease, stage 3 Aphagia Unsteady gait Anemia Hypertensive chronic kidney disease with stage 1 through stage 4 chronic kidney disease, or unspecified chronic kidney disease CKD (chronic kidney disease) Hearing loss Preglaucoma Vascular device, implant, or graft complication Bronchitis HTN (hypertension) Hyperlipidemia Hyperlipidemia Vitamin D deficiency Vitamin D deficiency Constipation GERD (gastroesophageal reflux disease) Diabetes Hemiplegia Surgical History History of removal of cyst (~02/09/22) Hx of cataract surgery History of surgical removal of skin lesion History of exploratory laparotomy Family History Father Myocardial infarction Mother Throat cancer Diabetes Family/Other FH: mental illness Brother In good health Sister In good health Sister In good health Daughter In good health Social History 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 Household Members Other:: nursing home Housing: House Do you presently have visiting nurse or other home services: Yes Alcohol intake: former Patient Tobacco Use Status: Former Tobacco user Tobacco use type: Cigarette Cigarette Packs Per Day: 2 Cigarettes Per Day: 40.0 Years Smoked: 16 e-Cigarette/Vaping Use: Never Used Second Hand Smoke Exposure: No Advance Directives Date on File: 12/02/20 service: No Current occupational status: disabled Current occupational exposures/hazards: No Cognitive needs: Yes (walker) Hearing needs: No Vision needs: No Questionnaire Thrive Questionnaire Date Thrive assessed: 12/07/23 PARRISH-7 AMB Questionnaire PARRISH-7 Date PARRISH - 7 assessed: 12/07/23 Source: Developed by Drs. Amari Ortega, Chaparrita Mg, Domingo Cummings and colleagues, with an educational anthony from [employer]. Review of Systems Const Details: Const Denies chills, Denies fatigue, Denies fever(s), Denies headache(s) and Denies weakness ENT Denies dizziness and Denies headache(s) Card Denies chest pain, Denies lightheadedness, Denies dyspnea and Denies other (Palpitations) Resp Denies cough, Denies dyspnea, Denies wheezing and Denies other ( shortness of breath) GI Denies abdominal pain, Denies melena, Denies hematochezia, Denies change in bowel habits, Denies dyspepsia and Denies nausea Denies hematuria and Denies dysuria Musc Denies abnormal gait, Denies myalgias, Denies arthralgias, Denies numbness and Denies tingling Skin/Breast Denies rash, Denies unusual bruising and Denies wounds Neuro Denies abnormal gait, Denies dizziness, Denies headache(s), Denies memory loss, Denies numbness, Denies Sensory deficit (Neuro), Denies tingling and Denies weakness Psych Denies anxiety, Denies depression, Denies memory loss Endo Denies cold intolerance, Denies fatigue, Denies heat intolerance, Denies polydipsia and Denies polyuria Aller/Immun Denies wheezing Physical exam (Primary Care) Tobacco/Smoking Status: Tobacco use Status Tobacco use date assessed 10/29/23 05/22/24 11:25 Patient Tobacco Use Status Former Tobacco user 05/22/24 11:25 Tobacco use type Cigarette 05/22/24 11:25 e-Cigarette/Vaping Use Never Used 05/22/24 11:25 Thrive Assessment: Date of Thrive Assessment Date Thrive assessed 12/07/23 05/22/24 11:25 Const Other: General: no acute distress and well developed Nutritional Appearance: well nourished Orientation/consciousness: patient oriented x3 HENMT Head: Yes normocephalic and Yes atraumatic Eyes General: appearance normal, both eyes and all related structures Pupils: Equal, round and reactive pupils present EOM: EOMs intact bilaterally Resp Effort & Inspection: normal respiratory effort Auscultation: clear to auscultation bilaterally Cardio Rate: regular rate Rhythm: regular rhythm Heart sounds: S1 normal heart sound present, S2 normal heart sound present, no gallops, no murmurs and no rubs GI Palpation (GI): No Abdominal aortic bruit present, Soft to palpation, nontender, No hepatosplenomegaly present and No Rebound tenderness present Auscultation: normal bowel sounds General: Yes no CVA tenderness Back/Spine/Pelvis Back: no CVA tenderness Cervical Spine: cervical ROM normal and No Cervical spine tenderness Thoracic/Lumbar Spine: thoraco-lumbar ROM normal, No pain with thoraco-lumbar ROM, No thoracic spinal tenderness and No lumbar spinal tenderness Extrem General: Yes normal to inspection, No edema and No calf tenderness Skin General: warm and dry. Normal skin color. Normal skin turgor. Superficial skin irritation noted to the left cox Neuro General: patient oriented x3, gait normal at baseline and no focal neuro deficit Cranial nerves: Yes Equal, round and reactive pupils present Cognition (Neuro): normal cognition Gait exam (Neuro): Normal gait present Sensory Exam: No Sensory deficit (Neuro) Psych Appearance: grossly normal Affect: normal affect Attitude: cooperative Thought process: Normal thought process present Results AMB Hemoglobin A1c AMB Hemoglobin A1c 6.4 % Last Edit by Nikki Jones on 05/22/24 12:14 Assessment and Plan Assessment & Plan (1) HTN (hypertension): Code(s): I10 - Essential (primary) hypertension Qualifiers: Hypertension type: essential hypertension Qualified Code(s): I10 - Essential (primary) hypertension Plan: Blood pressure today is 128/68, within goal of less than 130/80 Continue current treatment regimen Low-sodium diet encouraged Follow-up in 3 months or sooner with symptoms or concerns Verbalized understanding and agreed with the treatment plan Encouraged to schedule an appointment with Cardiology (2) Diabetes: Code(s): E11.9 - Type 2 diabetes mellitus without complications Qualifiers: Diabetes mellitus type: type 2 Diabetes mellitus manager field sales insulin use: with [facility] use Diabetes mellitus complication status: with kidney complications Diabetes mellitus complication detail: with chronic kidney disease Chronic kidney disease stage: stage 3 (moderate) Chronic kidney disease stage 3 subtype: unspecified whether 3a or 3b Qualified Code(s): E11.22 - Type 2 diabetes mellitus with diabetic chronic kidney disease; N18.30 - Chronic kidney disease, stage 3 unspecified; Z79.4 - custodial (current) use of insulin Plan: He was in today is 6.4%, within goal of less than 7.0%. Previous A1c was 6.6% Continue current treatment regimen ADA diet and routine exercise encouraged Follow-up in 3 months Verbalized understanding and agreed with the treatment plan (3) Skin irritation: Code(s): R23.8 - Other skin changes Plan: Reports occasional itching to his left cox with irritation on the skin Superficial skin irritation noted to the left cox Hydrocortisone cream ordered. Advised to use as prescribed Follow-up with worsening or new signs and symptoms Verbalized understanding and agreed with the treatment plan Orders: Orders AMB Hemoglobin A1c Today Z13.9 - Encounter for screening, unspecified Lipid Panel 3 Months E11.22 - Type 2 diabetes mellitus with diabetic chronic kidney disease, N18.30 - Chronic kidney disease, stage 3 unspecified, Z79.4 - custodial (current) use of insulin Medications: New hydrocortisone 1% 1 appl topical TID PRN 28.35 grams 0RF skin irritation Refilled atorvastatin replaces simvastatin 40 mg qhs 80 mg PO BEDTIME 90 days 90 tabs 1RF E11.22 - Type 2 diabetes mellitus with diabetic chronic kidney disease, N18.30 - Chronic kidney disease, stage 3 unspecified, Z79.4 - mobility architect (current) use of insulin acetaminophen (Tylenol) Take two 325mg tabs every 6 hours as needed for fever over 101, headache, or general discomfort. Contact PCP if symptoms persist greater than 24 hours. 650 mg (2 x 325 mg) PO Q6H 30 days PRN 120 tabs 2RF temp, headache or general discomfort tamsulosin 0.4 mg PO BEDTIME 90 caps 1RF E11.22 - Type 2 diabetes mellitus with diabetic chronic kidney disease, N18.30 - Chronic kidney disease, stage 3 unspecified, Z79.4 - custodial (current) use of insulin ascorbic acid (vitamin C) 500 mg PO BID 3 months 180 tabs 0RF aspirin Do not crush/chew 81 mg PO QAM 90 days 90 tabs 1RF Coding Level of Care Code Est Pt Level 4 (49334) Complex EM visit Add On G2211 Diagnoses Essential hypertension I10 Hypertension type: essential hypertension Type 2 diabetes mellitus with stage 3 chronic kidney disease, with long-term current use of insulin, unspecified whether stage 3a or 3b CKD E11.22; N18.30; Z79.4 Diabetes mellitus type: type 2 Diabetes mellitus manager field sales insulin use: with manager field sales use Diabetes mellitus complication status: with kidney complications Diabetes mellitus complication detail: with chronic kidney disease Chronic kidney disease stage: stage 3 (moderate) Chronic kidney disease stage 3 subtype: unspecified whether 3a or 3b Skin irritation R23.8
[2024-05-22 11:35] VITALS: BP 128/68; PULSE 70; RESP 16; TEMP 36.5; O2SAT 98; BMI 28.2
== END 2024-05-22 12:11 | disposition home or self-care (01) ==
PROVIDERS: PCP Nurse Practitioner Family
DX: I12.9 Hypertensive chronic kidney disease with stage 1 through stage 4 chronic kidney disease, or unspecified chronic kidney disease (principal); E11.22 Type 2 diabetes mellitus with diabetic chronic kidney disease; N18.30 Chronic kidney disease, stage 3 unspecified; Z79.4 Long term (current) use of insulin; R23.8 Other skin changes
CPT/HCPCS: 83036; 99214; G2211

== ENCOUNTER 2024-06-08 18:01 | Emergency (ER) | payer OTHER, SELFPAY ==
--- NOTE | ~2024-06-08 | XR_ITS ---
EXAMINATION: XR CHEST CLINICAL INFORMATION: Cough. COMPARISON: Chest x-ray October 31, 2023 TECHNIQUE: 2 views of the chest were obtained. FINDINGS: No significant abnormality is noted involving the heart, lungs, mediastinum, bony thorax or soft tissues. XR/XR chest 2V IMPRESSION: Unremarkable examination. Electronically signed by: Saad Johnson MD 06/08/2024 08:44 PM EDT RP
[2024-06-08 18:03] VITALS: BP 155/73; BP 162/67; PULSE 87; PULSE 91; RESP 18; TEMP 36.8; O2SAT 95; O2SAT 99; BMI 24.9
[2024-06-08 18:10] VITALS: BP 155/73; PULSE 87; RESP 18; TEMP 36.8; O2SAT 95
[2024-06-08 18:39] LABS: MANUAL DIFF FLAG NO
[2024-06-08 18:45] LABS: Basophils Absolute Auto 0.1 X10*3/uL (0.0-0.2); Basophils Percent Auto 0.5 % (0-2); Eosinophils Absolute Auto 0.3 X10*3/uL (0.0-0.4); Eosinophils Percent Auto 2.4 % (0-4); Hematocrit 37.5 % (42.0-52.0); Hemoglobin 12.6 g/dl (14.0-18.0); Imm Gran Abs Auto 0.04 X10*3/uL (0.00-0.03); Imm Gran Pct Auto 0.3 % (0.0-0.4); Lymphocytes Absolute Auto 1.9 X10*3/uL (1.2-4.9); Lymphocytes Percent Auto 15.2 % (20-40); Mean Corpuscular HGB Conc 33.6 g/dl (31.0-36.0); Mean Corpuscular Hemoglobin 29.6 pg (27.0-33.0); Mean Platelet Volume 10.5 fL (9.4-12.4); Monocytes Absolute Auto 1.1 X10*3/uL (0.1-1.2); Monocytes Percent Auto 8.4 % (2-11); Neutrophils Absolute Auto 9.2 x10*3/uL (2.0-8.3); Neutrophils Percent Auto 73.2 % (45-73); Platelet Count 219 X10*3/uL (160-400); Red Blood Count 4.26 X10*6/uL (4.60-5.80); Red Cell Distribution Width 13.1 % (11.0-16.0); White Blood Count 12.6 X10*3/uL (4.8-10.8)
[2024-06-08 18:57] LABS: Alanine Aminotransferase 9 U/L (0-40); Albumin Level 4.2 g/dL (3.5-5.0); Alkaline Phosphatase 82 U/L (39-117); Anion Gap 13 (12-20); Aspartate Amino Transferase 13 U/L (5-37); Bilirubin Total 0.2 mg/dL (0.0-1.0); Blood Urea Nitrogen 20 mg/dL (9-16); Calcium 9.8 mg/dL (8.4-10.2); Carbon Dioxide 24 mmol/L (22-29); Chloride 112 mmol/L (96-108); Creatinine Clr Calc Pharmacy 43.6; Estimated Glomerular Filt Rate 35; Glucose Random 99 mg/dL (60-115); Magnesium 2.3 mg/dL (1.6-2.6); Potassium 4.3 mmol/L (3.3-5.1); Sodium 145 mmol/L (135-145); Total Protein 7.6 g/dL (6.5-8.0)
[2024-06-08] MEDS: predniSONE 20 MG TABLET 40 MG PO (19:02)
[2024-06-08 19:20] LABS: Influenza A PCR NEGATIVE (Negative); Influenza B PCR NEGATIVE (Negative); Resp Syncy Virus RNA Qual PCR NEGATIVE (Negative); SARS COV2 PCR INHOUSE NEGATIVE (Negative)
[2024-06-08 20:10] VITALS: BP 130/82; PULSE 108; RESP 20; TEMP 36.8; O2SAT 93
--- NOTE | 2024-06-08 20:54 | ED_ITS ---
HPI - General Adult General Chief complaint: Upper Respiratory Symptoms Stated complaint: FEELING UNWELL,NAUSEA,HEADACHE,FEVER Time Seen by Provider: 06/08/24 18:13 Source: patient and other (Caregiver from [facility]) Limitations: language barrier History of Present Illness ED Provider: Humera Arizmendi PA-C HPI narrative: 63-year-old male with history of CKD, anemia of chronic disease, CVA with left- sided deficits and dysarthria, hypertension, hyperlipidemia, diabetes presents from [facility] with cough and cold symptoms x3 days. Subjective fevers, associated productive cough with wheezing. Denies chest pain, shortness of breath, vomiting, diarrhea. No other sick contacts with similar symptoms. Patient does not have a history of asthma or COPD, he does not smoke, he has not used inhalers in the past. Related Data Home Medications ?Medication ?Instructions ?Recorded ?Confirmed lorazepam 0.5 mg tablet (Ativan) 0.5 mg PO DAILY PRN Anxiety 07/24/20 02/14/24 glucose 5 % oral solution 15 g PO Q15M PRN hypoglycemia 12/28/22 02/14/24 blood-glucose meter (FreeStyle 05/17/23 02/14/24 Lite Meter kit) trazodone 100 mg tablet 200 mg PO BEDTIME 09/29/23 02/14/24 fluoxetine 40 mg capsule (Prozac) 40 mg PO DAILY 01/27/24 02/14/24 brexpiprazole 1 mg tablet (Rexulti) 1 mg PO BEDTIME 04/27/24 risperidone 0.5 mg tablet 0.5 mg PO DAILY 04/27/24 (Risperdal) Previous Rx's ?Medication ?Instructions ?Recorded miscellaneous medical supply #1 ea 07/11/21 miscellaneous medical supply See Rx Instructions miscellaneous 05/14/22 .COMPLEX #1 ea hydralazine 50 mg tablet 50 mg PO TID 90 days #270 tabs 11/05/22 lancets 26 gauge (Easy Touch #100 ea 08/09/23 Safety Lancets) lactulose 10 gram/15 mL oral 30 ml PO .q72 h PRN constipation 09/29/23 solution (Enulose) #473 mL cholecalciferol (vitamin D3) 25 25 mcg PO DAILY 90 days #90 tabs 10/29/23 mcg (1,000 unit) tablet losartan 50 mg tablet 75 mg (1.5 x 50 mg) PO DAILY 1 12/27/23 month #45 tabs dextrose 15 gram/33 gram oral gel See Rx Instructions PO .COMPLEX 12/31/23 packet (Dex4 Glucose) #198 grams insulin degludec 200 unit/mL (3 46 unit (0.23 mL) subcut DAILY 30 02/04/24 mL) subcutaneous pen (Tresi #6.9 mL FlexTouch U-200 insulin) nifedipine 30 mg tablet,extended 30 mg PO DAILY 30 days #30 tabs 02/04/24 release 24 hr (Procardia XL) blood sugar diagnostic (FreeStyle #100 ea 02/22/24 Lite Strips) pen needle, diabetic 31 gauge x 1 ea miscellaneous TID 28 days #84 02/22/24/16 (Easy Touch) ea dulaglutide 3 mg/0.5 mL 3 mg (0.5 mL) subcut QWEEK #2 mL 03/16/24 subcutaneous pen injector (Trulicity) apixaban 5 mg tablet (Eliquis) 5 mg PO BID #56 tabs 05/04/24 empagliflozin 10 mg tablet 10 mg PO QAM #28 tabs 05/04/24 (Jardiance) metoprolol succinate 25 mg 25 mg PO BEDTIME 28 days #28 tabs 05/04/24 tablet,extended release 24 hr multivitamin,tx-minerals 1 cap PO DAILY #90 caps 05/04/24 (Multi-Vitamin HP/Minerals capsule) polyethylene glycol 3350 17 17 g PO BID #1,020 grams 05/04/24 gram/dose oral powder sennosides 8.6 mg tablet (senna) 8.6 mg PO BID #56 tabs 05/04/24 ursodiol 300 mg capsule 300 mg PO BID #56 caps 05/04/24 acetaminophen 325 mg tablet 650 mg (2 x 325 mg) PO Q6H PRN 05/22/24 (Tylenol) temp, headache or general discomfort 30 days #120 tabs ascorbic acid (vitamin C) 500 mg 500 mg PO BID 3 months #180 tabs 05/22/24 tablet aspirin 81 mg tablet,delayed 81 mg PO QAM 90 days #90 tabs 05/22/24 release atorvastatin 80 mg tablet 80 mg PO BEDTIME 90 days #90 tabs 05/22/24 hydrocortisone 1 % topical cream 1 appl topical TID PRN skin 05/22/24 irritation #28.35 grams tamsulosin 0.4 mg capsule 0.4 mg PO BEDTIME #90 caps 05/22/24 albuterol sulfate 90 mcg/actuation 2 puff inhalation Q6H PRN 06/08/24 aerosol inhaler shortness of breath or wheezing #8.5 grams dextromethorphan-guaifenesin 30 2 tab PO Q12H PRN cough #20 tabs 06/08/24 mg-600 mg tablet extended [id number] hr (Mucinex DM) prednisone 20 mg tablet 40 mg (2 x 20 mg) PO DAILY #8 tabs 06/08/24 Allergies Allergy/AdvReac Type Severity Reaction Status Date / Time amlodipine [From [facility]] Allergy Severe due to Verified 06/08/24 18:07 poor renal function ibuprofen Allergy Severe 2/2 renal Verified 06/08/24 18:07 function Review of Systems 2 Review of Systems: Yes all other systems are reviewed and are negative Constitutional: Constitutional: Reports fever(s) Cardiovascular: Cardiovascular: Denies chest pain and Denies dyspnea Respiratory: Respiratory: Reports chest congestion, Reports cough, Denies dyspnea and Reports wheezing Gastrointestinal: Gastrointestinal: Denies diarrhea, Denies nausea and Denies vomiting Allergic/Immunologic: Allergic/Immunologic: Reports wheezing PMFSH Past Medical History Attestation statement: The following information was validated with the patient. Medical History Skin lesion Squamous cell carcinoma of skin Encephalopathy Cerebrovascular accident Hypoglycemia unawareness associated with type 2 diabetes mellitus Diabetes type 2, uncontrolled Type 2 diabetes mellitus with diabetic polyneuropathy Essential hypertension Epigastric pain Skin cancer Postoperative bleeding from incision Skin lesion Stroke Type 2 diabetes mellitus with chronic kidney disease Chronic kidney disease, stage 3 Aphagia Unsteady gait Anemia Hypertensive chronic kidney disease with stage 1 through stage 4 chronic kidney disease, or unspecified chronic kidney disease CKD (chronic kidney disease) Hearing loss Preglaucoma Vascular device, implant, or graft complication Bronchitis HTN (hypertension) Hyperlipidemia Hyperlipidemia Vitamin D deficiency Vitamin D deficiency Constipation GERD (gastroesophageal reflux disease) Diabetes Hemiplegia Surgical History History of removal of cyst (~02/09/22) Hx of cataract surgery History of surgical removal of skin lesion History of exploratory laparotomy Family History Family History Father Myocardial infarction Mother Throat cancer Diabetes Family/Other FH: mental illness Brother In good health Sister In good health Sister In good health Daughter In good health Social History Social History 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 Household Members Other:: [facility] Housing: House Do you presently have visiting nurse or other home services: Yes Alcohol intake: never Patient Tobacco Use Status: Former Tobacco user Tobacco use type: Cigarette Cigarette Packs Per Day: 2 Cigarettes Per Day: 40.0 Years Smoked: 16 Smoked in Last 30 Days: No e-Cigarette/Vaping Use: Never Used Second Hand Smoke Exposure: No Use of substances other than those prescribed or required for medical reasons: No Advance Directives: Yes Advance Directives on File: Yes Advance Directives Date on File: 12/02/20 Do you have a plan to hurt others: No Plan service: No Current occupational status: disabled Current occupational exposures/hazards: No Cognitive needs: Yes (walker) Hearing needs: No Vision needs: No Physical Exam ED Vital Signs: Vital Signs - 24 hr 06/08/24 20:10 06/08/24 21:29 06/08/24 22:52 Temperature 98.2 F 98.7 F Pulse Rate 108 H 82 102 H Respiratory Rate 20 20 20 Blood Pressure 130/82 136/64 Pulse Oximetry 93 92 Oxygen Delivery Method Room Air Room Air 06/08/24 22:58 Temperature 98.7 F Pulse Rate 102 H Respiratory Rate 20 Blood Pressure 136/64 Pulse Oximetry 92 Oxygen Delivery Method Room Air BMI result Body Mass Index 24.9 Const Other: Awake, overall well in appearance Orientation/consciousness: patient oriented x3 Resp Other: Nonlabored respirations, active productive cough, scattered expiratory wheezes noted, rhonchorous at times prior to coughing Cardio Other: Normal peripheral perfusion Skin Other: Warm dry no rash Neuro Other: Subtle left-sided weakness, dysarthria noted, baseline for the patient General: patient oriented x3 Psych Other: Cooperative Medications Administered Discontinued Medications Generic Name Dose Route Start Last Admin Trade Name Freq PRN Reason Stop Dose Admin Acetaminophen 975 mg 06/08/24 21:01 06/08/24 21:37 Acetaminophen 325 Mg Tablet PO 06/08/24 21:02 975 mg ONCE ONE Administration Albuterol Sulfate 7.5 mg 06/08/24 21:01 06/08/24 21:28 Albuterol Sulfate (0.083%) 2.5 Mg/3 Ml Vial.Neb INHALE 06/08/24 21:02 7.5 mg ONCE ONE Administration Apixaban 5 mg 06/08/24 22:21 06/08/24 22:54 Apixaban 5 Mg Tablet PO 06/08/24 22:22 5 mg ONCE ONE Administration Atorvastatin Calcium 80 mg 06/08/24 22:21 06/08/24 22:54 Atorvastatin Calcium 80 Mg Tablet PO 06/08/24 22:22 80 mg ONCE ONE Administration Guaifenesin/Dextromethorphan 2 tab 06/08/24 22:21 06/08/24 22:54 Guaifenesin Dm 600/30 1 Tab Tab.Er.12h PO 06/08/24 22:22 2 tab ONCE ONE Administration Hydralazine HCl 50 mg 06/08/24 22:21 06/08/24 22:53 Hydralazine Hcl 50 Mg Tablet PO 06/08/24 22:22 50 mg ONCE ONE Administration Protocol Ibuprofen 600 mg 06/08/24 21:01 06/08/24 21:37 Ibuprofen 600 Mg Tablet PO 06/08/24 21:02 600 mg ONCE ONE Administration Metoprolol Succinate 25 mg 06/08/24 22:21 06/08/24 22:54 Metoprolol Succinate Er 25 Mg Tab.Er.24h PO 06/08/24 22:22 25 mg ONCE ONE Administration Protocol Prednisone 40 mg 06/08/24 18:18 06/08/24 19:02 Prednisone 20 Mg Tablet PO 06/08/24 18:19 40 mg ONCE ONE Administration Senna 8.8 mg 06/08/24 22:21 06/08/24 22:59 Sennosides Oral Syrup 8.8 Mg/5 Ml PO 06/08/24 22:22 Not Given ONCE ONE Tamsulosin HCl 0.4 mg 06/08/24 22:21 06/08/24 22:53 Tamsulosin Hcl 0.4 Mg Capsule PO 06/08/24 22:22 0.4 mg ONCE ONE Administration Trazodone HCl 200 mg 06/08/24 22:21 06/08/24 22:54 Trazodone Hcl 100 Mg Tablet PO 06/08/24 22:22 200 mg ONCE ONE Administration Medical Decision Making Medical Decision Making [facility] Narrative: 63-year-old male with history of CKD, anemia of chronic disease, CVA with left- sided deficits and dysarthria, hypertension, hyperlipidemia, diabetes presents from [facility] with cough and cold symptoms x3 days. Subjective fevers, associated productive cough with wheezing. Denies chest pain, shortness of breath, vomiting, diarrhea. No other sick contacts with similar symptoms. Patient does not have a history of asthma or COPD, he does not smoke, he has not used inhalers in the past. 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 He is wheezing, we will give albuterol and steroid. I have independently reviewed the following tests: Labs: Leukocytosis noted, stable anemia, no electrolyte abnormality, viral panel negative EXAMINATION: XR CHEST CLINICAL INFORMATION: Cough. COMPARISON: Chest x-ray October 31, 2023 TECHNIQUE: 2 views of the chest were obtained. FINDINGS: No significant abnormality is noted involving the heart, lungs, mediastinum, bony thorax or soft tissues. XR/XR chest 2V IMPRESSION: Unremarkable examination. Electronically signed by: Saad Johnson MD 06/08/2024 08:44 PM EDT RP Lab Data 06/08/24 18:35 06/08/24 18:35 Labs: Lab Results 06/08/24 Range/Units 18:35 WBC 12.6 H (4.8-10.8) X10*3/uL RBC 4.26 L (4.60-5.80) X10*6/uL Hgb 12.6 L (14.0-18.0) g/dl Hct 37.5 L (42.0-52.0) % MCV 88.0 (80.0-98.0) fL MCH 29.6 (27.0-33.0) pg MCHC 33.6 (31.0-36.0) g/dl RDW 13.1 (11.0-16.0) % Plt Count 219 (160-400) X10*3/uL MPV 10.5 (9.4-12.4) fL Immature Gran % (Auto) 0.3 (0.0-0.4) % Neut % (Auto) 73.2 H (45-73) % Lymph % (Auto) 15.2 L (20-40) % Hutchinson % (Auto) 8.4 (2-11) % Eos % (Auto) 2.4 (0-4) % Baso % (Auto) 0.5 (0-2) % Lymph # (Auto) 1.9 (1.2-4.9) X10*3/uL Hutchinson # (Auto) 1.1 (0.1-1.2) X10*3/uL Eos # (Auto) 0.3 (0.0-0.4) X10*3/uL Baso # (Auto) 0.1 (0.0-0.2) X10*3/uL Abs Immat Gran (auto) 0.04 H (0.00-0.03) X10*3/uL Absolute Neuts (auto) 9.2 H (2.0-8.3) x10*3/uL Absolute Nucleated RBC 0.000 (0.0-0.012) X10*3/uL Nucleated RBC % (auto) 0.0 (0.0-0.2) /100WBC Sodium 145 (135-145) mmol/L Potassium 4.3 (3.3-5.1) mmol/L Chloride 112 H (96-108) mmol/L Carbon Dioxide 24 (22-29) mmol/L Anion Gap 13 (12-20) BUN 20 H (9-16) mg/dL Creatinine 1.95 H (0.5-1.4) mg/dL Estim Creat Clear Calc 43.6 Estimated GFR 35 Random Glucose 99 (60-115) mg/dL Calcium 9.8 (8.4-10.2) mg/dL Magnesium 2.3 (1.6-2.6) mg/dL Total Bilirubin 0.2 (0.0-1.0) mg/dL AST 13 (5-37) U/L ALT 9 (0-40) U/L Alkaline Phosphatase 82 (39-117) U/L Total Protein 7.6 (6.5-8.0) g/dL Albumin 4.2 (3.5-5.0) g/dL Influenza Type A (PCR) NEGATIVE (Negative) Influenza Type B (PCR) NEGATIVE (Negative) RSV RNA Qual (PCR) NEGATIVE (Negative) SARS-CoV-2 RNA (RT-PCR) NEGATIVE (Negative) Discharge Plan Discharge Clinical Impression: Bronchitis, Acute viral syndrome Patient Disposition: Home, Self-Care Instructions: Acute Bronchitis (ED), Viral Syndrome (ED) Additional Instructions: You have a virus causing your symptoms. We screened you for COVID, RSV and influenza, the screening was negative. However, there are numerous respiratory viruses currently circulating in the community. You have bronchitis. See home care instructions. Use your inhaler as directed. Take the steroid as directed. Use the Mucinex as directed. Follow up with your primary care provider within a week. To note the remainder of your screening labs were normal and the chest x-ray was clear, you do not have a pneumonia. Prescriptions: New albuterol sulfate 90 mcg/actuation HFA aerosol inhaler 2 puff inhalation Q6H MDD 8 PRN (Reason: shortness of breath or wheezing) Qty: 8.5 0RF prednisone 20 mg tablet 40 mg PO DAILY Qty: 8 0RF Mucinex DM 30-600 mg tablet extended release 12 hr 2 tab PO Q12H MDD 2 PRN (Reason: cough) Qty: 20 0RF No Action hydralazine 50 mg tablet 50 mg PO TID 90 Days Qty: 270 2RF Protocol: Hold for SBP< HOLD for SBP < : 110 (DME) lancets [Easy Touch Safety Lancets] 26 gauge misc See Rx Instructions .ROUTE .COMPLEX Qty: 100 11RF Dose Instruction: USE 2-3 TIMES A DAY DIRECTED FOR BLOOD GLUCOSE MONITORING Rx Instructions: USE 2-3 TIMES A DAY DIRECTED FOR BLOOD GLUCOSE MONITORING losartan 50 mg tablet 75 mg PO DAILY 30 Days Qty: 45 10RF dextrose [Dex4 Glucose] 15 gram/33 gram gel in packet See Rx Instructions PO .COMPLEX Qty: 198 4RF Rx Instructions: 15 gm pRN hypoglycemia Tresiba FlexTouch U-200 200 unit/mL (3 mL) insulin pen 46 unit subcut DAILY 30 Days Qty: 6.9 5RF Rx Instructions: Report any blood sugars <70 nifedipine [Procardia XL] 30 mg tablet extended release 24hr 30 mg PO DAILY 30 Days Qty: 30 3RF (DME) FreeStyle Lite Strips Strip See Rx Instructions .ROUTE .COMPLEX Qty: 100 11RF Dose Instruction: USE TO TEST BLOOD SUGAR FOUR TIMES A DAY Rx Instructions: USE TO TEST BLOOD SUGAR FOUR TIMES A DAY pen needle, diabetic [Easy Touch] 31 gauge x 5/16 needle 1 ea miscellaneous TID 28 Days Qty: 84 11RF Trulicity 3 mg/0.5 mL pen injector 3 mg subcut QWEEK Qty: 2 4RF Eliquis 5 mg tablet 5 mg PO BID Qty: 56 11RF Rx Instructions: Report any excessive bleeding Jardiance 10 mg tablet 10 mg PO QAM Qty: 28 6RF metoprolol succinate 25 mg tablet extended release 24 hr 25 mg PO BEDTIME 28 Days Qty: 28 11RF Rx Instructions: Do not crush/chew Multi-Vitamin HP/Minerals Capsule 1 cap PO DAILY Qty: 90 1RF Rx Instructions: take for supplement daily with food sennosides [senna] 8.6 mg tablet 8.6 mg PO BID Qty: 56 11RF polyethylene glycol 3350 17 gram/dose powder 17 g PO BID Qty: 1020 8RF ursodiol 300 mg capsule 300 mg PO BID Qty: 56 11RF (DME) miscellaneous medical supply Misc See Rx Instructions .ROUTE .MEDSUPPLY Qty: 1 0RF Rx Instructions: R AFO, Daily As directed, 999 days. Disp #1 lorazepam [Ativan] 0.5 mg tablet 0.5 mg PO DAILY PRN (Reason: Anxiety) risperidone [Risperdal] 0.5 mg tablet 0.5 mg PO DAILY miscellaneous medical supply Misc See Rx Instructions miscellaneous .COMPLEX Qty: 1 1RF Rx Instructions: Right lateral sole wedge as directed; ascorbic acid (vitamin C) 500 mg tablet 500 mg PO BID 90 Days Qty: 180 0RF aspirin 81 mg tablet,delayed release (DR/EC) 81 mg PO QAM 90 Days Qty: 90 1RF Rx Instructions: Do not crush/chew atorvastatin 80 mg tablet 80 mg PO BEDTIME 90 Days Qty: 90 1RF Rx Instructions: replaces simvastatin 40 mg qhs acetaminophen [Tylenol] 325 mg tablet 650 mg PO Q6H PRN (Reason: temp, headache or general discomfort) 30 Days Qty: 120 2RF Rx Instructions: Take two 325mg tabs every 6 hours as needed for fever over 101, headache, or general discomfort. Contact PCP if symptoms persist greater than 24 hours. tamsulosin 0.4 mg capsule 0.4 mg PO BEDTIME Qty: 90 1RF hydrocortisone 1 % cream 1 appl topical TID PRN (Reason: skin irritation) Qty: 28.35 0RF (DME) blood-glucose meter [FreeStyle Lite Meter] Kit See Rx Instructions .Route Rx Instructions: As directed trazodone 100 mg tablet 200 mg PO BEDTIME lactulose [Enulose] 10 gram/15 mL solution 30 ml PO .q72 h PRN (Reason: constipation) Qty: 473 3RF Rx Instructions: Take every 3 days or every 72 hours as needed. If no effect after 24 hours from dose, contact PCP cholecalciferol (vitamin D3) 25 mcg (1,000 unit) tablet 25 mcg PO DAILY 90 Days Qty: 90 4RF glucose 5 % solution 15 g PO Q15M PRN (Reason: hypoglycemia) fluoxetine [Prozac] 40 mg capsule 40 mg PO DAILY Rexulti 1 mg tablet 1 mg PO BEDTIME Interventions: ED Discharge Assessment Last Done: 06/08/24 22:58 Discharge Date/Time: 06/08/24 23:04 Print Language: Romanian
[2024-06-08] MEDS: Albuterol Sulfate (0.083%) 2.5 MG/3 ML VIAL.NEB 7.5 MG INHALE (21:28)
[2024-06-08 21:29] VITALS: PULSE 82; RESP 20; O2SAT 95
[2024-06-08] MEDS: Acetaminophen 325 MG TABLET 975 MG PO (21:37)
[2024-06-08] MEDS: Ibuprofen 600 MG TABLET PO (21:37)
[2024-06-08 22:52] VITALS: BP 136/64; PULSE 102; RESP 20; TEMP 37.1; O2SAT 92
[2024-06-08] MEDS: Tamsulosin HCL 0.4 MG CAPSULE PO (22:53)
[2024-06-08] MEDS: hydrALAZINE HCl 50 MG TABLET PO (22:53)
[2024-06-08] MEDS: guaiFENesin DM 600/30 1 TAB TAB.ER.12H 2 TAB PO (22:54)
[2024-06-08] MEDS: Apixaban 5 MG TABLET PO (22:54)
[2024-06-08] MEDS: traZODone HCL 100 MG TABLET 200 MG PO (22:54)
[2024-06-08] MEDS: Metoprolol Succinate ER 25 MG TAB.ER.24H PO (22:54)
[2024-06-08] MEDS: Atorvastatin Calcium 80 MG TABLET PO (22:54)
[2024-06-08 22:58] VITALS: BP 136/64; PULSE 102; RESP 20; TEMP 37.1; O2SAT 92
== END 2024-06-08 23:04 | disposition home or self-care (01) ==
PROVIDERS: Physician Assistant Medical; Emergency Provider Emergency Medicine
DX: B34.9 Viral infection, unspecified (principal); J40 Bronchitis, not specified as acute or chronic; Z03.818 Encounter for observation for suspected exposure to other biological agents ruled out; R05.9 Cough, unspecified; E11.22 Type 2 diabetes mellitus with diabetic chronic kidney disease; I12.9 Hypertensive chronic kidney disease with stage 1 through stage 4 chronic kidney disease, or unspecified chronic kidney disease; N18.30 Chronic kidney disease, stage 3 unspecified; E78.5 Hyperlipidemia, unspecified; Z86.73 Personal history of transient ischemic attack (TIA), and cerebral infarction without residual deficits; Z87.891 Personal history of nicotine dependence; Z79.4 Long term (current) use of insulin; Z79.85 Long-term (current) use of injectable non-insulin antidiabetic drugs; Z79.899 Other long term (current) drug therapy; Z79.82 Long term (current) use of aspirin; Z79.02 Long term (current) use of antithrombotics/antiplatelets
CPT/HCPCS: 0241U; 71046; 80053; 83735; 85025; 94640; 99284; 99285

== ENCOUNTER 2024-07-04 16:28 | Emergency (ER) | payer OTHER, SELFPAY ==
--- NOTE | 2024-07-04 | ECG_ITS ---
Test Reason : CHEST PAIN Blood Pressure : / mmHG Vent. Rate : 055 BPM Atrial Rate : 055 BPM P-R Int : 142 ms QRS Dur : 092 ms QT Int : 438 ms P-R-T Axes : 036 -06 034 degrees QTc Int : 419 ms Sinus bradycardia Otherwise normal ECG When compared with ECG of 16-MAY-2024 08:35, Premature atrial complexes are no longer Present Referred By: Raquel Smith Electronically Signed By:ISRRAEL PRINGLE
--- NOTE | ~2024-07-04 | CT_ITS ---
EXAMINATION: CT HEAD WITHOUT CONTRAST CT FACIAL BONES WITHOUT CONTRAST CT CERVICAL SPINE WITHOUT CONTRAST CLINICAL INFORMATION: Fall. Head injury. Jaw intact. COMPARISON: CT head and cervical spine from 05/16/2024. TECHNIQUE: Imaging was performed from the skull base to vertex without intravenous administration of contrast. In addition, helical noncontrast CT imaging was acquired through the cervical spine and facial bones and source images were reviewed along with axial reconstructions and sagittal and coronal MPRs. This CT examination was performed using dose optimization techniques as appropriate, variously including the following: *Automated exposure control. *Adjustment of mA and/or kV according to patient size (this includes techniques or standardized protocols for targeted exams where dose is matched to indication/reason for exam; i.e. extremities or head). *Use of iterative reconstruction technique. DLP: 1736 mGy-cm FINDINGS: Head: There are chronic regions of encephalomalacia within the left frontal operculum, bilateral frontoparietal junctions, and posterior left insula with associated volume loss. No additional loss of hendricks-white matter differentiation. No evidence of acute intracranial hemorrhage. Scattered and partially confluent hypoattenuation in the periventricular and deep white matter are consistent with moderate microangiopathy. Proportional prominence of the ventricles and sulcal spaces without evidence of obstructive hydrocephalus. No abnormal mass effect or midline shift. No extra-axial fluid collections. No acute soft tissue or osseous abnormalities. Maxillofacial Bones: No evidence of maxillofacial bone fractures. The zygomatic arches remain intact. Chronic minimal lateral offset of the left nasal bone. No acute nasal bone fracture. The nasal septum remains midline. No evidence of mandibular or maxillary fracture. The mandibular condyles remain well-seated in their respective temporal articular grooves. Normal appearance of the intraconal and extraconal fat. No evidence of traumatic injury to the extraocular musculature or globes. Chronic depression of the left lamina papyracea. Bilateral lens extractions. Mild mucosal thickening of the paranasal sinuses. The mastoid air cells and middle ear cavities are clear. No layering fluid collections. Cervical Spine: The atlantooccipital and atlantoaxial articulations remain well aligned. Partial straightening of the normal cervical lordosis. Moderate degenerative retrolisthesis of C5 on C6. Otherwise, there is anatomic alignment of the vertebral bodies and posterior elements. No evidence of acute fracture or subluxation. The vertebral body heights are maintained. Advanced disc degeneration at C5-C6. Mild disc degeneration at all additional levels. Facet and uncovertebral joint arthropathy leads to osseous encroachment on the neural foramina from C5-C6. There is no prevertebral soft tissue swelling. The thyroid gland and remaining cervical soft tissues are within normal limits. The lung apices demonstrate no abnormalities. CT/CT cervical spine wo IV con IMPRESSION: 1. No evidence of acute intracranial hemorrhage or edematous territorial infarction. 2. No evidence of acute fracture or traumatic subluxation of the cervical spine. 3. No evidence of acute fracture of the maxillofacial bones. 4. Chronic regions of encephalomalacia within the left frontal lobe, bilateral frontoparietal junctions, and posterior left insula. Moderate underlying microangiopathy and generalized cerebral volume loss. Electronically signed by: Ayden Quigley DO 07/04/2024 06:54 PM EDT
--- NOTE | ~2024-07-04 | XR_ITS ---
EXAMINATION: XR SHOULDER, LEFT CLINICAL INFORMATION: Fall, pain COMPARISON: Left shoulder 05/16/2024 TECHNIQUE: AP external rotation, Grashey, scapular Y, and axillary views of the left shoulder. FINDINGS: The bones and soft tissues are normal. No acute fracture. Glenohumeral and acromioclavicular alignment is anatomic with normal joint space. No abnormal soft tissue calcifications. XR/XR shoulder LT min 2V IMPRESSION: Unremarkable left shoulder. Electronically signed by: Pepe Haskins MD 07/04/2024 05:40 PM EDT
--- NOTE | ~2024-07-04 | XR_ITS ---
EXAMINATION: XR HIP, LEFT CLINICAL INFORMATION: Fall. Decreased range of motion COMPARISON: None available. TECHNIQUE: Frontal view of pelvis. Two views of the left hip. FINDINGS: No fracture. Alignment is anatomic. Hip joint space is maintained. Soft tissues are unremarkable. XR/XR hip LT w PEL1V IMPRESSION: Normal left hip. Electronically signed by: Saad Johnson MD 07/04/2024 07:46 PM EDT RP
[2024-07-04 16:41] VITALS: BP 162/90; BP 163/90; PULSE 56; PULSE 64; RESP 18; TEMP 36.8; O2SAT 97; BMI 31.2
--- NOTE | 2024-07-04 16:48 | ED.FALL ---
HPI - Fall General Chief Complaint: Fall Stated Complaint: MECHANICAL FALL, L SHOULDER PAIN, +THINNERS Time Seen by Provider: 07/04/24 16:29 Source: patient and EMS Mode of arrival: EMS Limitations: no limitations History of Present Illness HPI Narrative: Patient is a 63-year-old male with past medical history of anemia, CVA with left-sided deficit and slurred speech, GERD, CKD, DVT on Eliquis, DM, hyperlipidemia, hypertension who presents to the emergency department via EMS coming from [facility] after a mechanical trip and fall. Was reportedly walking with his walker [facility] the [facility] indoors and tripped over the metal strip of the threshold, resulting in a fall forward,, striking his jaw onto the walker and subsequently falling onto the left side with resultant left shoulder pain. He had endorsed left hip pain to EMS personnel but now denies when asked. There was no reported loss of consciousness. Related Data Home Medications ?Medication ?Instructions ?Recorded ?Confirmed lorazepam 0.5 mg tablet (Ativan) 0.5 mg PO DAILY PRN Anxiety 07/24/20 02/14/24 glucose 5 % oral solution 15 g PO Q15M PRN hypoglycemia 12/28/22 02/14/24 blood-glucose meter (FreeStyle 05/17/23 02/14/24 Lite Meter kit) trazodone 100 mg tablet 200 mg PO BEDTIME 09/29/23 02/14/24 fluoxetine 40 mg capsule (Prozac) 40 mg PO DAILY 01/27/24 02/14/24 brexpiprazole 1 mg tablet (Rexulti) 1 mg PO BEDTIME 04/27/24 risperidone 0.5 mg tablet 0.5 mg PO DAILY 04/27/24 (Risperdal) Previous Rx's ?Medication ?Instructions ?Recorded miscellaneous medical supply #1 ea 07/11/21 miscellaneous medical supply See Rx Instructions miscellaneous 05/14/22 .COMPLEX #1 ea hydralazine 50 mg tablet 50 mg PO TID 90 days #270 tabs 11/05/22 lancets 26 gauge (Easy Touch #100 ea 08/09/23 Safety Lancets) lactulose 10 gram/15 mL oral 30 ml PO .q72 h PRN constipation 09/29/23 solution (Enulose) #473 mL cholecalciferol (vitamin D3) 25 25 mcg PO DAILY 90 days #90 tabs 10/29/23 mcg (1,000 unit) tablet losartan 50 mg tablet 75 mg (1.5 x 50 mg) PO DAILY 1 12/27/23 month #45 tabs dextrose 15 gram/33 gram oral gel See Rx Instructions PO .COMPLEX 12/31/23 packet (Dex4 Glucose) #198 grams insulin degludec 200 unit/mL (3 46 unit (0.23 mL) subcut DAILY 30 02/04/24 mL) subcutaneous pen ( #6.9 mL FlexTouch U-200 insulin) blood sugar diagnostic (FreeStyle #100 ea 02/22/24 Lite Strips) pen needle, diabetic 31 gauge x 1 ea miscellaneous TID 28 days #84 02/22/24 5/16 (Easy Touch) ea apixaban 5 mg tablet (Eliquis) 5 mg PO BID #56 tabs 05/04/24 empagliflozin 10 mg tablet 10 mg PO QAM #28 tabs 05/04/24 (Jardiance) metoprolol succinate 25 mg 25 mg PO BEDTIME 28 days #28 tabs 05/04/24 tablet,extended release 24 hr multivitamin,tx-minerals 1 cap PO DAILY #90 caps 05/04/24 (Multi-Vitamin HP/Minerals capsule) polyethylene glycol 3350 17 17 g PO BID #1,020 grams 05/04/24 gram/dose oral powder sennosides 8.6 mg tablet (senna) 8.6 mg PO BID #56 tabs 05/04/24 ursodiol 300 mg capsule 300 mg PO BID #56 caps 05/04/24 acetaminophen 325 mg tablet 650 mg (2 x 325 mg) PO Q6H PRN 05/22/24 (Tylenol) temp, headache or general discomfort 30 days #120 tabs ascorbic acid (vitamin C) 500 mg 500 mg PO BID 3 months #180 tabs 05/22/24 tablet atorvastatin 80 mg tablet 80 mg PO BEDTIME 90 days #90 tabs 05/22/24 hydrocortisone 1 % topical cream 1 appl topical TID PRN skin 05/22/24 irritation #28.35 grams albuterol sulfate 90 mcg/actuation 2 puff inhalation Q6H PRN 06/08/24 aerosol inhaler shortness of breath or wheezing #8.5 grams dextromethorphan-guaifenesin 30 2 tab PO Q12H PRN cough #20 tabs 06/08/24 mg-600 mg tablet extended [id number] hr (Mucinex DM) prednisone 20 mg tablet 40 mg (2 x 20 mg) PO DAILY #8 tabs 06/08/24 aspirin 81 mg tablet,delayed 81 mg PO QAM 90 days #90 tabs 06/16/24 release dulaglutide 3 mg/0.5 mL 3 mg (0.5 mL) subcut QWEEK #2 mL 06/16/24 subcutaneous pen injector (Trulicity) nifedipine 30 mg tablet,extended 30 mg PO DAILY 30 days #30 tabs 06/16/24 release 24 hr (Procardia XL) tamsulosin 0.4 mg capsule 0.4 mg PO BEDTIME #90 caps 06/16/24 Allergies Allergy/AdvReac Type Severity Reaction Status Date / Time amlodipine [From [facility][1]] Allergy Severe due to Verified 07/04/24 16:48 poor renal function ibuprofen Allergy Severe 2/2 renal Verified 07/04/24 16:48 function Review of Systems Review of Systems: Yes all other systems are reviewed and are negative [facility] Past Medical History Attestation statement: The following information was validated with the patient. Source: old records reviewed Medical History Skin lesion Squamous cell carcinoma of skin Encephalopathy Cerebrovascular accident Hypoglycemia unawareness associated with type 2 diabetes mellitus Diabetes type 2, uncontrolled Type 2 diabetes mellitus with diabetic polyneuropathy Essential hypertension Epigastric pain Skin cancer Postoperative bleeding from incision Skin lesion Stroke Type 2 diabetes mellitus with chronic kidney disease Chronic kidney disease, stage 3 Aphagia Unsteady gait Anemia Hypertensive chronic kidney disease with stage 1 through stage 4 chronic kidney disease, or unspecified chronic kidney disease CKD (chronic kidney disease) Hearing loss Preglaucoma Vascular device, implant, or graft complication Bronchitis HTN (hypertension) Hyperlipidemia Hyperlipidemia Vitamin D deficiency Vitamin D deficiency Constipation GERD (gastroesophageal reflux disease) Diabetes Hemiplegia Surgical History History of removal of cyst (~02/09/22) Hx of cataract surgery History of surgical removal of skin lesion History of exploratory laparotomy Family History Family History Father Myocardial infarction Mother Throat cancer Diabetes Family/Other FH: mental illness Brother In good health Sister In good health Sister In good health Daughter In good health Social History Social History 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 Household Members Other:: custodial Housing: House Do you presently have visiting nurse or other home services: Yes Alcohol intake: never Patient Tobacco Use Status: Former Tobacco user Tobacco use type: Cigarette Cigarette Packs Per Day: 2 Cigarettes Per Day: 40.0 Years Smoked: 16 e-Cigarette/Vaping Use: Never Used Second Hand Smoke Exposure: No Advance Directives: Yes Advance Directives Information Provided: No Advance Directives on File: No Advance Directives Date on File: 12/02/20 Do you have a plan to hurt others: No Plan service: No Current occupational status: disabled Current occupational exposures/hazards: No Cognitive needs: Yes (walker) Hearing needs: No Vision needs: No Physical Exam Vital Signs: Vital Signs: Last Vital Signs Temp 98.2 F 07/04/24 16:41 Pulse 57 07/04/24 19:58 Resp 12 07/04/24 19:58 BP 151/61 H 07/04/24 19:58 Pulse Ox 97 07/04/24 16:41 O2 Del Method Room Air 07/04/24 16:41 BMI result Body Mass Index 31.2 Appearance: Alert.?Oriented to person, place and time. No acute distress.?Normal affect. Head: Normocephalic Eyes: Pupils equal, round and reactive to light. EOMI. Conjunctiva and sclera normal? No Matthews sign noted. No raccoon eyes noted ENT: No septal hematoma, nares patent bilaterally. External auditory canal normal tympanic membrane pearly hendricks and intact bilaterally. Dentition normal, no fractured teeth. No lesions or lacerations of oropharynx. Uvula midline. Moist mucous membranes. Neck: Normal inspection.? Neck supple.??No palpable tenderness, step-off, deformities. CVS: Heart sounds normal. Normal heart rate and rhythm.? Pulses normal.?? Respiratory: No respiratory distress.? Lung sounds clear to auscultation bilaterally?? Abdomen: Soft and non-tender. Normoactive bowel sounds. ?? Skin: Skin warm and dry.? Normal skin color.? Extremities: No lower extremity edema.? No obvious deformity of the lower extremity. 2+ DP/PT pulse bilaterally. Full active range of motion to right hip knee and ankle. Has decreased AROM to the left hip, reports of pain with passive external rotation of the hip Neuro: Moves all extremities spontaneously. Sensation intact bilaterally. CN II-XII intact. No focal neuro deficits. Course Reevaluation(s) Reevaluation #1: At this time patient is reporting pain pointing to the left upper anterior portion of his chest as well as to his shoulder. Plan to obtain EKG and serum labs further evaluation at this time to exclude ACS though I suspect the pain may be secondary to the call shoulder injury. He has notable tenderness upon palpation the trapezius muscle on examination. Time: 19:28 Reevaluation #2: CBC is without leukocytosis, has a mild normocytic anemia that does not meet transfusion criteria, no thrombocytopenia. No significant electrolyte derangement. Renal function baseline. High sensitive troponin within normal range. ECG revealing a sinus bradycardia with ventricular rate of 55, QTC 419, no ST elevation, no ST depression. At this time I feel that he is stable for discharge back to custodial, discussed fall precautions questions answered. Stable for discharge Time: 20:36 Medications Administered Discontinued Medications Generic Name Dose Route Start Last Admin Trade Name Freq PRN Reason Stop Dose Admin Acetaminophen 975 mg 07/04/24 17:27 07/04/24 17:42 Acetaminophen 325 Mg Tablet PO 07/04/24 17:28 975 mg ONCE ONE Administration Hydralazine HCl 50 mg 07/04/24 17:27 07/04/24 17:42 Hydralazine Hcl 50 Mg Tablet PO 07/04/24 17:28 50 mg ONCE ONE Administration Protocol Medical Decision Making Medical Decision Making MDM Narrative: Patient is a 63-year-old male with past medical history of anemia, CVA with left-sided deficit and slurred speech, GERD, CKD, DVT on Eliquis, DM, hyperlipidemia, hypertension presenting to emergency department for evaluation after mechanical fall as per HPI. Endorsing posterior head and neck pain, no midline cervical spine tenderness step-offs or deformities, no scalp lacerations or hematomas noted. Endorsing pain to the jaw, no palpable deformity. Obtaining CT head and cervical spine to exclude ICH, SDH, fracture, subluxation. Pain to the left shoulder with near full range of motion, lower suspicion for acute fracture, XR to be obtained, initially reported pain to the left hip then denied, however has decreased active range of motion and reports of pain with passive range of motion, XR to exclude fracture lower suspicion for dislocation. Extremities are all neurovascularly intact distally. If radiographic imaging is unremarkable, will attempt ambulation trial to assure that he is at baseline before discharge back to custodial, his group fitness department head is with him at bedside. He was due to take hydralazine 50 mg at 6100, will administer now at this time in addition to acetaminophen for pain. Differential Diagnosis Differential Diagnoses: The differential diagnosis associated with the presentation includes (See narrative above) Admission/Observation Consideration of admission/observation: Escalation of care including admission/observation considered (See narrative above) Lab Data MDM Lab Attestation statement: I reviewed the patient's lab results. (See course narrative) 07/04/24 19:57 07/04/24 19:57 Labs: Lab Results 07/04/24 Range/Units 19:57 WBC 9.1 (4.8-10.8) X10*3/uL RBC 4.07 L (4.60-5.80) X10*6/uL Hgb 12.0 L (14.0-18.0) g/dl Hct 35.9 L (42.0-52.0) % MCV 88.2 (80.0-98.0) fL MCH 29.5 (27.0-33.0) pg MCHC 33.4 (31.0-36.0) g/dl RDW 12.9 (11.0-16.0) % Plt Count 221 (160-400) X10*3/uL MPV 11.0 (9.4-12.4) fL Immature Gran % (Auto) 0.2 (0.0-0.4) % Neut % (Auto) 57.4 (45-73) % Lymph % (Auto) 29.1 (20-40) % [place] % (Auto) 9.9 (2-11) % Eos % (Auto) 3.2 (0-4) % Baso % (Auto) 0.2 (0-2) % Lymph # (Auto) 2.7 (1.2-4.9) X10*3/uL [place] # (Auto) 0.9 (0.1-1.2) X10*3/uL Eos # (Auto) 0.3 (0.0-0.4) X10*3/uL Baso # (Auto) 0.0 (0.0-0.2) X10*3/uL Abs Immat Gran (auto) 0.02 (0.00-0.03) X10*3/uL Absolute Neuts (auto) 5.2 (2.0-8.3) x10*3/uL Absolute Nucleated RBC 0.000 (0.0-0.012) X10*3/uL Nucleated RBC % (auto) 0.0 (0.0-0.2) /100WBC PT 13.5 H (10.9-12.4) SEC INR 1.2 H (0.9-1.1) Sodium 143 (135-145) mmol/L Potassium 4.5 (3.3-5.1) mmol/L Chloride 110 H (96-108) mmol/L Carbon Dioxide 26 (22-29) mmol/L Anion Gap 12 (12-20) BUN 24 H (9-16) mg/dL Creatinine 2.01 H (0.5-1.4) mg/dL Estim Creat Clear Calc 40.0 Estimated GFR 34 Random Glucose 78 (60-115) mg/dL Calcium 9.4 (8.4-10.2) mg/dL Magnesium 2.3 (1.6-2.6) mg/dL Total Bilirubin 0.2 (0.0-1.0) mg/dL AST 13 (5-37) U/L ALT 8 (0-40) U/L Alkaline Phosphatase 78 (39-117) U/L Troponin I High Sens 4.7 (<3.5-35.0) ng/L Total Protein 7.2 (6.5-8.0) g/dL Albumin 4.0 (3.5-5.0) g/dL Independent Interpretation I performed an independent interpretation of an: Plain X-Ray (No acute fracture of the left shoulder or left hip) Radiology Impression Discussion of test interpretation with radiology: I have reviewed the radiologist's reading. Radiologist Impression: CT/CT head/brain wo IV con IMPRESSION: 1. No evidence of acute intracranial hemorrhage or edematous territorial infarction. 2. No evidence of acute fracture or traumatic subluxation of the cervical spine. 3. No evidence of acute fracture of the maxillofacial bones. 4. Chronic regions of encephalomalacia within the left frontal lobe, bilateral frontoparietal junctions, and posterior left insula. Moderate underlying microangiopathy and generalized cerebral volume loss. XR/XR hip LT w PEL1V IMPRESSION: Normal left hip. XR/XR shoulder LT min 2V IMPRESSION: Unremarkable left shoulder. Independent Historian Clinical information obtained from an independent historian. History obtained from or confirmed by: EMS External Record Review External record reviewed: Outpatient record Prescription Management I considered prescription management with: Pain Medication Discharge Plan Discharge Clinical Impression: Contusion of left shoulder, Fall Patient Disposition: Home, Self-Care Instructions: Fall Prevention for Older Adults (ED) Additional Instructions: Patient was seen in the emergency department for evaluation after a fall. CT of the head and neck were normal without acute injury. X-ray of the left shoulder and left hip were without acute injury. Basic labs were obtained and an EKG, overall unremarkable. Follow-up with primary care doctor. Follow instructions regarding fall prevention Prescriptions: No Action hydralazine 50 mg tablet 50 mg PO TID 90 Days Qty: 270 2RF Protocol: Hold for SBP< HOLD for SBP < : 110 (DME) lancets [Easy Touch Safety Lancets] 26 gauge misc See Rx Instructions .ROUTE .COMPLEX Qty: 100 11RF Dose Instruction: USE 2-3 TIMES A DAY DIRECTED FOR BLOOD GLUCOSE MONITORING Rx Instructions: USE 2-3 TIMES A DAY DIRECTED FOR BLOOD GLUCOSE MONITORING losartan 50 mg tablet 75 mg PO DAILY 30 Days Qty: 45 10RF dextrose [Dex4 Glucose] 15 gram/33 gram gel in packet See Rx Instructions PO .COMPLEX Qty: 198 4RF Rx Instructions: 15 gm pRN hypoglycemia Tresiba FlexTouch U-200 200 unit/mL (3 mL) insulin pen 46 unit subcut DAILY 30 Days Qty: 6.9 5RF Rx Instructions: Report any blood sugars <70 (DME) FreeStyle Lite Strips Strip See Rx Instructions .ROUTE .COMPLEX Qty: 100 11RF Dose Instruction: USE TO TEST BLOOD SUGAR FOUR TIMES A DAY Rx Instructions: USE TO TEST BLOOD SUGAR FOUR TIMES A DAY pen needle, diabetic [Easy Touch] 31 gauge x 5/16 needle 1 ea miscellaneous TID 28 Days Qty: 84 11RF Eliquis 5 mg tablet 5 mg PO BID Qty: 56 11RF Rx Instructions: Report any excessive bleeding Jardiance 10 mg tablet 10 mg PO QAM Qty: 28 6RF metoprolol succinate 25 mg tablet extended release 24 hr 25 mg PO BEDTIME 28 Days Qty: 28 11RF Rx Instructions: Do not crush/chew Multi-Vitamin HP/Minerals Capsule 1 cap PO DAILY Qty: 90 1RF Rx Instructions: take for supplement daily with food sennosides [senna] 8.6 mg tablet 8.6 mg PO BID Qty: 56 11RF polyethylene glycol 3350 17 gram/dose powder 17 g PO BID Qty: 1020 8RF ursodiol 300 mg capsule 300 mg PO BID Qty: 56 11RF Trulicity 3 mg/0.5 mL pen injector 3 mg subcut QWEEK Qty: 2 4RF nifedipine [Procardia XL] 30 mg tablet extended release 24hr 30 mg PO DAILY 30 Days Qty: 30 3RF tamsulosin 0.4 mg capsule 0.4 mg PO BEDTIME Qty: 90 1RF aspirin 81 mg tablet,delayed release (DR/EC) 81 mg PO QAM 90 Days Qty: 90 1RF Rx Instructions: Do not crush/chew albuterol sulfate 90 mcg/actuation HFA aerosol inhaler 2 puff inhalation Q6H MDD 8 PRN (Reason: shortness of breath or wheezing) Qty: 8.5 0RF prednisone 20 mg tablet 40 mg PO DAILY Qty: 8 0RF Mucinex DM 30-600 mg tablet extended release 12 hr 2 tab PO Q12H MDD 2 PRN (Reason: cough) Qty: 20 0RF (DME) miscellaneous medical supply Misc See Rx Instructions .ROUTE .MEDSUPPLY Qty: 1 0RF Rx Instructions: R AFO, Daily As directed, 999 days. Disp #1 lorazepam [Ativan] 0.5 mg tablet 0.5 mg PO DAILY PRN (Reason: Anxiety) risperidone [Risperdal] 0.5 mg tablet 0.5 mg PO DAILY miscellaneous medical supply Misc See Rx Instructions miscellaneous .COMPLEX Qty: 1 1RF Rx Instructions: Right lateral sole wedge as directed; ascorbic acid (vitamin C) 500 mg tablet 500 mg PO BID 90 Days Qty: 180 0RF atorvastatin 80 mg tablet 80 mg PO BEDTIME 90 Days Qty: 90 1RF Rx Instructions: replaces simvastatin 40 mg qhs acetaminophen [Tylenol] 325 mg tablet 650 mg PO Q6H PRN (Reason: temp, headache or general discomfort) 30 Days Qty: 120 2RF Rx Instructions: Take two 325mg tabs every 6 hours as needed for fever over 101, headache, or general discomfort. Contact PCP if symptoms persist greater than 24 hours. hydrocortisone 1 % cream 1 appl topical TID PRN (Reason: skin irritation) Qty: 28.35 0RF (DME) blood-glucose meter [FreeStyle Lite Meter] Kit See Rx Instructions .Route Rx Instructions: As directed trazodone 100 mg tablet 200 mg PO BEDTIME lactulose [Enulose] 10 gram/15 mL solution 30 ml PO .q72 h PRN (Reason: constipation) Qty: 473 3RF Rx Instructions: Take every 3 days or every 72 hours as needed. If no effect after 24 hours from dose, contact PCP cholecalciferol (vitamin D3) 25 mcg (1,000 unit) tablet 25 mcg PO DAILY 90 Days Qty: 90 4RF glucose 5 % solution 15 g PO Q15M PRN (Reason: hypoglycemia) fluoxetine [Prozac] 40 mg capsule 40 mg PO DAILY Rexulti 1 mg tablet 1 mg PO BEDTIME Referrals: Physician,Unknown J [Primary Care Provider] - Print Language: [place]
[2024-07-04 17:42] VITALS: BP 163/90
[2024-07-04] MEDS: hydrALAZINE HCl 50 MG TABLET PO (17:42)
[2024-07-04] MEDS: Acetaminophen 325 MG TABLET 975 MG PO (17:42)
--- NOTE | 2024-07-04 17:44 | PC.NURSE ---
pt medicated for generalized pain, pt also given bp medication that was missed at home.
[2024-07-04 19:58] VITALS: BP 151/61; PULSE 57; RESP 12
[2024-07-04 20:03] LABS: MANUAL DIFF FLAG NO
--- NOTE | 2024-07-04 20:05 | PC.NURSE ---
pt complaining of chest pain, provider was in with another patient, this nurse placed an EKG order and notified provider, provider ordered additional labs and patient was moved into room 16 and put on a radiation monitor.
[2024-07-04 20:12] LABS: INTERNATIONAL NORM RATIO 1.2 (0.9-1.1); Prothrombin Time 13.5 SEC (10.9-12.4)
[2024-07-04 20:13] LABS: Basophils Percent Auto 0.2 % (0-2); Eosinophils Absolute Auto 0.3 X10*3/uL (0.0-0.4); Eosinophils Percent Auto 3.2 % (0-4); Hematocrit 35.9 % (42.0-52.0); Imm Gran Abs Auto 0.02 X10*3/uL (0.00-0.03); Imm Gran Pct Auto 0.2 % (0.0-0.4); Lymphocytes Absolute Auto 2.7 X10*3/uL (1.2-4.9); Lymphocytes Percent Auto 29.1 % (20-40); Mean Corpuscular HGB Conc 33.4 g/dl (31.0-36.0); Mean Corpuscular Hemoglobin 29.5 pg (27.0-33.0); Mean Corpuscular Volume 88.2 fL (80.0-98.0); Monocytes Absolute Auto 0.9 X10*3/uL (0.1-1.2); Monocytes Percent Auto 9.9 % (2-11); Neutrophils Absolute Auto 5.2 x10*3/uL (2.0-8.3); Neutrophils Percent Auto 57.4 % (45-73); Platelet Count 221 X10*3/uL (160-400); Red Blood Count 4.07 X10*6/uL (4.60-5.80); Red Cell Distribution Width 12.9 % (11.0-16.0); White Blood Count 9.1 X10*3/uL (4.8-10.8)
[2024-07-04 20:21] LABS: Alanine Aminotransferase 8 U/L (0-40); Alkaline Phosphatase 78 U/L (39-117); Anion Gap 12 (12-20); Aspartate Amino Transferase 13 U/L (5-37); Bilirubin Total 0.2 mg/dL (0.0-1.0); Blood Urea Nitrogen 24 mg/dL (9-16); Calcium 9.4 mg/dL (8.4-10.2); Carbon Dioxide 26 mmol/L (22-29); Chloride 110 mmol/L (96-108); Estimated Glomerular Filt Rate 34; Glucose Random 78 mg/dL (60-115); Magnesium 2.3 mg/dL (1.6-2.6); Potassium 4.5 mmol/L (3.3-5.1); Sodium 143 mmol/L (135-145); Total Protein 7.2 g/dL (6.5-8.0)
[2024-07-04 20:28] LABS: Troponin-I High Sensitivity 4.7 ng/L (<3.5-35.0)
--- NOTE | 2024-07-04 20:54 | PC.NURSE ---
staff from pts assisted came in, pt stated his pain had resolved, cardiac nurse practitioner nsr, assisted staff wanted patient to have all his home medications- stating he had 14 different ones and wanted our provider to order them, this nurse explained that the patient would be getting discharged to home and he could take his medications at home. provider was notified of this, pts discharge was placed and discharge instructions given to the assisted staff.
[2024-07-04 20:56] VITALS: BP 136/76; PULSE 58; RESP 16; TEMP 36.7; O2SAT 98
== END 2024-07-04 20:57 | disposition home or self-care (01) ==
PROVIDERS: Nurse Practitioner Family; Emergency Provider Internal Medicine; PCP Nurse Practitioner Family
DX: S40.012A Contusion of left shoulder, initial encounter (principal); W01.0XXA Fall on same level from slipping, tripping and stumbling without subsequent striking against object, initial encounter; R07.9 Chest pain, unspecified; Y93.89 Activity, other specified; Y92.008 Other place in unspecified non-institutional (private) residence as the place of occurrence of the external cause; Y99.9 Unspecified external cause status
CPT/HCPCS: 36415; 70450; 70486; 72125; 73030; 73502; 80053; 83735; 84484; 85025; 85610; 93005; 99284; 99285

== ENCOUNTER 2024-08-28 11:07 | Outpatient (AMB) | payer OTHER, SELFPAY ==
--- NOTE | 2024-08-28 11:11 | MHC.PC.OV ---
Vital Signs 08/28/24 11:31 Height 5 ft 6 in Weight 172 lb 2 oz BMI 27.8 BP 131/64 Blood Pressure Location Rt brachial Position Sitting Respiration 16 Pulse 56 Pulse Source Pulse Oximeter Temp 98.4 F Temp Source Temporal Artery Scan Pulse Oximetry (%) 97 Oxygen Delivery Method Room Air Intake Visit Reasons: 3 mos DM, HTN Intake Note: patient here for 3 month follow up on DM, HTN Consulting Practice Director Required: Yes Consulting Practice Director Language: Shift Production Associate Name: Oanh Coles [id number] Information Interpreted: non-clinical & clinical Accompanied by: Unknown Allergies amlodipine [From [facility]] Allergy (Severe, Verified 08/28/24 11:36) due to poor renal function ibuprofen Allergy (Severe, Verified 08/28/24 11:36) 2/2 renal function Medication List - Last Reconciled 08/28/24 by Nikki Naik CNP acetaminophen (Tylenol) 650 mg (2 x 325 mg) PO Q6H PRN 30 days albuterol sulfate 90 mcg/actuation 2 puffs inhalation Q6H PRN MDD 8 apixaban (Eliquis) 5 mg PO BID ascorbic acid (vitamin C) 500 mg PO BID 3 months aspirin 81 mg PO QAM 90 days atorvastatin 80 mg PO BEDTIME 90 days atorvastatin (Lipitor) 80 mg PO BEDTIME blood sugar diagnostic (FreeStyle Lite Strips) USE TO TEST BLOOD SUGAR FOUR TIMES A DAY blood-glucose meter (FreeStyle Lite Meter kit) As directed brexpiprazole (Rexulti) 1 mg PO BEDTIME cholecalciferol (vitamin D3) 25 mcg PO DAILY 90 days dextrose (Dex4 Glucose) 15 gm pRN hypoglycemia dulaglutide (Trulicity) 3 mg (0.5 mL) subcut QWEEK empagliflozin (Jardiance) 10 mg PO QAM fluoxetine (Prozac) 40 mg PO DAILY glucose 15 grams PO Q15M PRN hydralazine 50 mg See Protocol PO TID 90 days hydrocortisone 1% 1 appl topical TID PRN insulin degludec (Tresiba FlexTouch U-200 insulin) 46 units (0.23 mL) subcut DAILY 30 days lactulose (Enulose) 30 mL PO .q72 h PRN lancets (Easy Touch Safety Lancets) USE 2-3 TIMES A DAY DIRECTED FOR BLOOD GLUCOSE MONITORING lorazepam (Ativan) 0.5 mg PO DAILY PRN losartan 75 mg (1.5 x 50 mg) PO DAILY 1 month metoprolol succinate ER 25 mg PO BEDTIME 28 days miscellaneous medical supply R AFO, Daily As directed, 999 days. Disp #1 miscellaneous medical supply Right lateral sole wedge as directed; multivitamin,tx-minerals (Multi-Vitamin HP/Minerals capsule) 1 cap PO DAILY nifedipine ER (Procardia XL) 30 mg PO DAILY 30 days pen needle, diabetic (Easy Touch) 1 ea miscellaneous TID 28 days polyethylene glycol 3350 17 grams PO BID sennosides (senna) 8.6 mg PO BID tamsulosin (Flomax) 0.4 mg PO BEDTIME trazodone 200 mg PO BEDTIME ursodiol 300 mg PO BID Tobacco use date assessed: 08/28/24 Dental Screening Dental Screen Date: 08/28/24 Did you have a dental visit in the last 12 months?: Yes Did you have a dental problem in the last 6 months where you did not have access to dental care?: No Was dental information given to patient?: Patient has dentist HPI HPI Comments History of Present Illness Details The patient is a 63-year-old primarily Latvian-speaking male presenting with a follow-up visit for Type 2 Diabetes Mellitus and Essential Hypertension. The patient reports adherence to prescribed medications without adverse reactions. The patient has been previously diagnosed with diabetes, with an initial Hemoglobin A1c of 6.6% in May. Over time, through continued medication adherence, his A1c has improved to 5.5%, which is within the desirable goal of less than 7.0%. His blood pressure today is noted to be 131/64 mmHg, slightly above the goal of less than 130/80 mmHg. The patient originates from a [place] [facility] and is escorted by the staff. He mentions being limited in dietary management, particularly in restricting carbohydrates intake, and reports engaging in minimal physical activity, only participating in physical therapy once a week. No new symptoms or complaints were reported during the visit. He notes that his dairy chemist and requests a new referral for dairy chemist. Interpretation by professional historic interpreter via electronic tablet. [facility] Medical History Skin lesion Squamous cell carcinoma of skin Encephalopathy Cerebrovascular accident Hypoglycemia unawareness associated with type 2 diabetes mellitus Diabetes type 2, uncontrolled Type 2 diabetes mellitus with diabetic polyneuropathy Essential hypertension Epigastric pain Skin cancer Postoperative bleeding from incision Skin lesion Stroke Type 2 diabetes mellitus with chronic kidney disease Chronic kidney disease, stage 3 Aphagia Unsteady gait Anemia Hypertensive chronic kidney disease with stage 1 through stage 4 chronic kidney disease, or unspecified chronic kidney disease CKD (chronic kidney disease) Hearing loss Preglaucoma Vascular device, implant, or graft complication Bronchitis HTN (hypertension) Hyperlipidemia Hyperlipidemia Vitamin D deficiency Vitamin D deficiency Constipation GERD (gastroesophageal reflux disease) Diabetes Hemiplegia Surgical History History of removal of cyst (~02/09/22) Hx of cataract surgery History of surgical removal of skin lesion History of exploratory laparotomy Family History Father Myocardial infarction Mother Throat cancer Diabetes Family/Other FH: mental illness Brother In good health Sister In good health Sister In good health Daughter In good health Social History 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 Household Members Other:: [place] [facility] Housing: House Do you presently have visiting nurse or other home services: Yes Alcohol intake: never Patient Tobacco Use Status: Former Tobacco user Tobacco use type: Cigarette Cigarette Packs Per Day: 2 Cigarettes Per Day: 40.0 Years Smoked: 16 e-Cigarette/Vaping Use: Never Used Second Hand Smoke Exposure: No Advance Directives Date on File: 07/04/24 service: No Current occupational status: disabled Current occupational exposures/hazards: No Cognitive needs: Yes (walker) Hearing needs: No Vision needs: No Questionnaire PHQ-9 Over the last 2 weeks, how often have you been bothered by any of the following problems? 1. Little interest or pleasure in doing things: several days 2. Feeling down, depressed, or hopeless: several days 3. Trouble falling or staying asleep, or sleeping too much: several days 4. Feeling tired or having little energy: not at all 5. Poor appetite or overeating: several days 6. Feeling bad about yourself - or that you are a failure or have let yourself or your family down: not at all 7. Trouble concentrating on things, such as reading the newspaper or watching television: not at all 8. Moving or speaking so slowly that other people could have noticed. Or the opposite - being so fidgety or restless that you have been moving around a lot more than usual: more than half the days 9. Thoughts that you would be better off or of hurting yourself in some way: not at all Total score: 6 Depression Screening Interpretation: Positive Depression Screening Done: Yes 45811 - PHQ-9 Billing: Yes Source: Developed by Drs. Amari Ortega, Chaparrita Mg, Domingo Cummings and colleagues, with an educational anthony from [employer]. Thrive Questionnaire Date Thrive assessed: 08/28/24 I am a: Patient What is your living situation today?: I have a steady place to live Within the past 12 months, did the food you bought not last and you didn't have the money to get more?: Never true Do you have trouble paying for medicines?: No Do you have trouble getting transportation to medical appointments?: No Do you have trouble paying your heating and electricity bill?: No Do you have trouble taking care of your child, family member or friend?: Yes Do you have trouble with day-to-day activities such as bathing, preparing meals, shopping, managing finances, etc.?: Yes Are you currently unemployed and looking for a job?: No Are you interested in more education?: No Please select the resources that you would like help with: None Currently or been in a relationship where the following occur: No concerns reported THRIVE Score: 0 AUDIT C Alcohol Use Questionnaire (AUDIT-C) 1. How often do you have a drink containing alcohol?: Never Total Score: 0 Score Reviewed/Action Taken: Yes PARRISH-7 AMB Questionnaire PARRISH-7 Date PARRISH - 7 assessed: 08/28/24 Feeling nervous, anxious, or on edge: 0 = Not at all Not being able to stop or control worryin = Not at all Worrying too much about different things: 0 = Not at all Trouble relaxin = Several days Being so restless that it is hard to sit still: 0 = Not at all Becoming easily annoyed or irritable: 1 = Several days Feeling afraid as if something awful might happen: 0 = Not at all Total PARRISH-7 score (0-4 normal; 5-9 mild; 10-14 moderate; 15-21 severe): 2 Source: Developed by Drs. Amari Ortega, Chaparrita Mg, Domingo Cummings and colleagues, with an educational anthony from [employer]. PARRISH-7 Assessment Billing PARRISH-7 Assessment Tool: PARRISH-7 Assessment 91858 Review of Systems Const Details: Const Denies chills, Denies fatigue, Denies fever(s), Denies headache(s) and Denies weakness ENT Denies dizziness and Denies headache(s) Card Denies chest pain, Denies lightheadedness, Denies dyspnea and Denies other (Palpitations) Resp Denies cough, Denies dyspnea, Denies wheezing and Denies other ( shortness of breath) GI Denies abdominal pain, Denies melena, Denies hematochezia, Denies change in bowel habits, Denies dyspepsia and Denies nausea Denies hematuria and Denies dysuria Musc Denies abnormal gait, Denies myalgias, Denies arthralgias, Denies numbness and Denies tingling Skin/Breast Denies rash, Denies unusual bruising and Denies wounds Neuro Denies abnormal gait, Denies dizziness, Denies headache(s), Denies memory loss, Denies numbness, Denies Sensory deficit (Neuro), Denies tingling and Denies weakness Psych Denies anxiety, Denies depression, Denies memory loss Endo Denies cold intolerance, Denies fatigue, Denies heat intolerance, Denies polydipsia and Denies polyuria Aller/Immun Denies wheezing Physical exam (Primary Care) Tobacco/Smoking Status: Tobacco use Status Tobacco use date assessed 05/22/24 08/28/24 11:13 Patient Tobacco Use Status Former Tobacco user 08/28/24 11:13 Tobacco use type Cigarette 08/28/24 11:13 e-Cigarette/Vaping Use Never Used 08/28/24 11:13 Depression Screening Interpretation: Positive Thrive Assessment: Date of Thrive Assessment Date Thrive assessed 12/07/23 08/28/24 11:13 Currently or been in a relationship where the following occur: No concerns reported Const Other: General: no acute distress and well developed Nutritional Appearance: well nourished Orientation/consciousness: patient oriented x3 HENMT Head: Yes normocephalic and Yes atraumatic Eyes General: appearance normal, both eyes and all related structures Pupils: Equal, round and reactive pupils present EOM: EOMs intact bilaterally Resp Effort & Inspection: normal respiratory effort Auscultation: clear to auscultation bilaterally Cardio Rate: regular rate Rhythm: regular rhythm Heart sounds: S1 normal heart sound present, S2 normal heart sound present, no gallops, no murmurs and no rubs GI Palpation (GI): No Abdominal aortic bruit present, Soft to palpation, nontender, No hepatosplenomegaly present and No Rebound tenderness present Auscultation: normal bowel sounds General: Yes no CVA tenderness Back/Spine/Pelvis Back: no CVA tenderness Extrem General: Yes normal to inspection, No edema and No calf tenderness Skin General: warm and dry. Normal skin color. Normal skin turgor Neuro General: patient oriented x3, gait unsteady at baseline and no focal neuro deficit Cranial nerves: Yes Equal, round and reactive pupils present Cognition (Neuro): normal cognition Gait exam (Neuro): Unsteady at baseline Sensory Exam: No Sensory deficit (Neuro) Psych Appearance: grossly normal Affect: normal affect Attitude: cooperative Thought process: Normal thought process present Results AMB Hemoglobin A1c AMB Hemoglobin A1c 5.5 % Last Edit by Nikki Jones on 08/28/24 11:49 Coding Level of Care Code Est Pt Level 4 (11699) Diagnoses Type 2 diabetes mellitus with stage 3 chronic kidney disease, with long-term current use of insulin, unspecified whether stage 3a or 3b CKD E11.22; N18.30; Z79.4 Diabetes mellitus type: type 2 Diabetes mellitus fdc insulin use: with fdc use Diabetes mellitus complication status: with kidney complications Diabetes mellitus complication detail: with chronic kidney disease Chronic kidney disease stage: stage 3 (moderate) Chronic kidney disease stage 3 subtype: unspecified whether 3a or 3b Essential hypertension I10 Hypertension type: essential hypertension Additional Codes PARRISH-7 Assessment Billing - PARRISH-7 Assessment Tool: PARRISH-7 Assessment 99166 ([id number]) PHQ-9 - 22972 - PHQ-9 Billing: Yes ([id number]) Assessment & Plan Assessment & Plan (1) Diabetes: Code(s): E11.9 - Type 2 diabetes mellitus without complications Category: Medical Qualifiers: Diabetes mellitus type: type 2 Diabetes mellitus fdc insulin use: with fdc use Diabetes mellitus complication status: with kidney complications Diabetes mellitus complication detail: with chronic kidney disease Chronic kidney disease stage: stage 3 (moderate) Chronic kidney disease stage 3 subtype: unspecified whether 3a or 3b Qualified Code(s): E11.22 - Type 2 diabetes mellitus with diabetic chronic kidney disease; N18.30 - Chronic kidney disease, stage 3 unspecified; Z79.4 - meterman (current) use of insulin Plan: Continue with the current treatment regimen. Provide education on dietary modifications emphasizing carbohydrate restriction. Encourage increased physical activity beyond minimal weekly physical therapy. Hemoglobin A1c to be monitored at next visit. Referred to dairy chemist due to the prior dairy chemist's . (2) HTN (hypertension): Code(s): I10 - Essential (primary) hypertension Category: Medical Qualifiers: Hypertension type: essential hypertension Qualified Code(s): I10 - Essential (primary) hypertension Plan: Maintain current antihypertensive regimen, noting the blood pressure is well near target. Reinforce lifestyle modifications for blood pressure control. Plan During our visit, we discussed the excellent progress in managing his Type 2 Diabetes Mellitus with the A1c improving to 5.5%. I commended the patient on adhering to the prescribed medication regimen. We reviewed the importance of dietary modifications and increased physical activity to further improve diabetes and hypertension outcomes. I advised continuing current medications for managing hypertension, as the readings were acceptably close to target levels. We discussed the necessity of a new referral to a dairy chemist following the of his previous specialist, and I assured the patient that a referral would be made. Follow-up is scheduled for three months, with earlier review warranted if there are any changes in his condition Orders: Orders Microalbumin, Random (w Creat) Today E11.22 - Type 2 diabetes mellitus with diabetic chronic kidney disease, N18.30 - Chronic kidney disease, stage 3 unspecified, Z79.4 - nursing home (current) use of insulin AMB Hemoglobin A1c Today Z13.9 - Encounter for screening, unspecified Referrals Podiatry Referral E11.22 - Type 2 diabetes mellitus with diabetic chronic kidney disease, N18.30 - Chronic kidney disease, stage 3 unspecified, Z79.4 - meterman (current) use of insulin Patient Instructions: - Continue current medications for diabetes and hypertension as prescribed. - Focus on dietary modifications, particularly reducing carbohydrate intake. - Increase physical activity, incorporating exercises beyond minimal weekly physical therapy sessions. - Perform urine microalbumin/creatinine ratio and fasting lipid panel blood work before next visit. - Follow-up in three months for reevaluation of diabetes and hypertension management. - Await and attend new podiatry referral as arranged. Patient was informed and verbally consented to the use of an ambient scribe for clinic note documentation during this visit.
[2024-08-28 11:31] VITALS: BP 131/64; PULSE 56; RESP 16; TEMP 36.9; O2SAT 97; BMI 27.8
== END 2024-08-28 11:57 | disposition home or self-care (01) ==
PROVIDERS: Visit Provider Nurse Practitioner Family
DX: E11.22 Type 2 diabetes mellitus with diabetic chronic kidney disease (principal); N18.30 Chronic kidney disease, stage 3 unspecified; Z79.4 Long term (current) use of insulin; I10 Essential (primary) hypertension; Z13.9 Encounter for screening, unspecified

== ENCOUNTER → 2024-08-28 11:07 | Outpatient (BNVA) | payer OTHER, SELFPAY | PROVIDERS: Visit Provider Nurse Practitioner Family | DX: I12.9 Hypertensive chronic kidney disease with stage 1 through stage 4 chronic kidney disease, or unspecified chronic kidney disease (principal); E11.22 Type 2 diabetes mellitus with diabetic chronic kidney disease; N18.30 Chronic kidney disease, stage 3 unspecified; Z79.4 Long term (current) use of insulin | CPT/HCPCS: 83036; 96127; 99212 ==

== ENCOUNTER 2024-08-29 09:03 | Outpatient (REF) | payer OTHER, SELFPAY ==
[2024-08-29 10:50] LABS: Anion Gap 13 (12-20); Blood Urea Nitrogen 23 mg/dL (9-16); Calcium 9.5 mg/dL (8.4-10.2); Carbon Dioxide 24 mmol/L (22-29); Chloride 106 mmol/L (96-108); Cholesterol 85 mg/dL (<200); Estimated Glomerular Filt Rate 32; Glucose Random 79 mg/dL (60-115); HDL Cholesterol 37 mg/dL (>40); LDL Cholesterol Calculated 42 mg/dL (<100); Potassium 4.3 mmol/L (3.3-5.1); Sodium 139 mmol/L (135-145); Triglycerides 32 mg/dL (<150)
[2024-08-29 11:10] LABS: Creatinine Urine 118.74 mg/dL
[2024-08-29 11:23] LABS: Microalbum/Creatinine Ratio Ur 671.2 ug/mg cr (<30)
== END 2024-08-29 09:04 | disposition home or self-care (01) ==
LOC: HO.LAB 09:03
PROVIDERS: Absent Provider Internal Medicine Hypertension Specialist; PCP Nurse Practitioner Family; Visit Provider Nurse Practitioner Family
DX: N18.4 Chronic kidney disease, stage 4 (severe) (principal); E11.22 Type 2 diabetes mellitus with diabetic chronic kidney disease; N18.30 Chronic kidney disease, stage 3 unspecified; Z79.4 Long term (current) use of insulin
CPT/HCPCS: 36415; 80048; 80061; 82043; 82570

== ENCOUNTER → 2024-08-29 23:59 | Outpatient (BNV) | payer OTHER, SELFPAY | PROVIDERS: PCP Nurse Practitioner Family; Visit Provider Nurse Practitioner Family | DX: E11.9 Type 2 diabetes mellitus without complications (principal); G81.91 Hemiplegia, unspecified affecting right dominant side | CPT/HCPCS: G0179 ==

== ENCOUNTER 2024-09-23 20:51 | Emergency (ER) | payer OTHER, SELFPAY ==
--- NOTE | 2024-09-23 | ECG_ITS ---
Test Reason : HYPERTENSION Blood Pressure : / mmHG Vent. Rate : 054 BPM Atrial Rate : 054 BPM P-R Int : 142 ms QRS Dur : 098 ms QT Int : 448 ms P-R-T Axes : 020 -14 062 degrees QTc Int : 424 ms Sinus bradycardia Otherwise normal ECG When compared with ECG of 04-JUL-2024 19:18, No significant change was found Referred By: Generic ED Physician Electronically Signed By:ELHAM JOE
--- NOTE | ~2024-09-23 | CT_ITS ---
EXAMINATION: CT HEAD WITHOUT CONTRAST CLINICAL INFORMATION: Headache. COMPARISON: July 04, 2024 TECHNIQUE: Contiguous axial imaging was performed from the skull base to vertex without intravenous administration of contrast. This CT examination was performed using dose optimization techniques as appropriate, variously including the following: *Automated exposure control *Adjustment of mA and/or kV according to patient size (this includes techniques or standardized protocols for targeted exams where dose is matched to indication/reason for exam; i.e. extremities or head) *Use of iterative reconstruction technique DLP: 747 mGy-cm FINDINGS: There is cerebral volume loss with prominence of the lateral and the third ventricles. The cortical sulci are widened appropriately. The fourth ventricle and basal cisterns are normally outlined. There is left frontoparietal and right parietal encephalomalacia consistent with old infarcts. There is no acute territorial defect, hemorrhage or midline shift. The extra-axial spaces are unremarkable. Calvarium/scalp: Intact. Maxillofacial sinuses and mastoids: Clear as visualized. CT/CT head/brain wo IV con IMPRESSION: 1. No acute intracranial pathology. 2. Old left frontoparietal and right parietal infarcts. 3. Cerebral volume loss. Electronically signed by: Naseem Monaco MD 09/23/2024 11:56 PM [facility]
[2024-09-23 20:56] VITALS: BP 178/76; BP 189/70; PULSE 64; RESP 17; TEMP 37.1; O2SAT 94; BMI 27.4
--- NOTE | 2024-09-23 21:13 | PC.NURSE ---
pt biba from [facility], a&ox3, respirations even and unlabored. pt reports hypertension x3 days, pt reports he did not take his medications today. pt noted to be hypertensive in ambulance and hypertensive on arrival. pt reporting 7/10 headache. pt denies chest pain and sob at this time. pt normal sinus on tele, 20G placed in left wrist, labs obtained.
[2024-09-23 21:27] LABS: MANUAL DIFF FLAG NO
[2024-09-23 21:33] LABS: Basophils Absolute Auto 0.1 X10*3/uL (0.0-0.2); Basophils Percent Auto 0.6 % (0-2); Eosinophils Absolute Auto 0.2 X10*3/uL (0.0-0.4); Eosinophils Percent Auto 1.9 % (0-4); Hematocrit 37.8 % (42.0-52.0); Hemoglobin 12.4 g/dl (14.0-18.0); Imm Gran Abs Auto 0.03 X10*3/uL (0.00-0.03); Imm Gran Pct Auto 0.3 % (0.0-0.4); Lymphocytes Absolute Auto 3.1 X10*3/uL (1.2-4.9); Lymphocytes Percent Auto 29.9 % (20-40); Mean Corpuscular HGB Conc 32.8 g/dl (31.0-36.0); Mean Corpuscular Hemoglobin 29.3 pg (27.0-33.0); Mean Corpuscular Volume 89.4 fL (80.0-98.0); Mean Platelet Volume 11.1 fL (9.4-12.4); Monocytes Absolute Auto 0.8 X10*3/uL (0.1-1.2); Monocytes Percent Auto 8.1 % (2-11); Neutrophils Absolute Auto 6.2 x10*3/uL (2.0-8.3); Neutrophils Percent Auto 59.2 % (45-73); Platelet Count 216 X10*3/uL (160-400); Red Blood Count 4.23 X10*6/uL (4.60-5.80); Red Cell Distribution Width 13.4 % (11.0-16.0); White Blood Count 10.4 X10*3/uL (4.8-10.8)
[2024-09-23 22:17] VITALS: BP 168/76; PULSE 73; RESP 18
[2024-09-23 22:33] LABS: Alanine Aminotransferase 13 U/L (0-40); Albumin Level 3.8 g/dL (3.5-5.0); Alkaline Phosphatase 69 U/L (39-117); Anion Gap 10 (12-20); Aspartate Amino Transferase 20 U/L (5-37); Bilirubin Total 0.2 mg/dL (0.0-1.0); Blood Urea Nitrogen 14 mg/dL (9-16); Calcium 9.1 mg/dL (8.4-10.2); Carbon Dioxide 27 mmol/L (22-29); Chloride 112 mmol/L (96-108); Creatinine Clr Calc Pharmacy 49.4; Estimated Glomerular Filt Rate 47; Glucose Random 99 mg/dL (60-115); Sodium 145 mmol/L (135-145); Total Protein 6.7 g/dL (6.5-8.0)
[2024-09-23 22:40] LABS: Troponin-I High Sensitivity 5.7 ng/L (<3.5-35.0)
--- NOTE | 2024-09-23 22:55 | ED_ITS ---
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 Patient has had reportedly elevated blood pressure for the last 3 days. He takes hydralazine 50 mg t.i.d., losartan 50 mg daily and metoprolol 25 mg at bedtime. Per care home staff, the patient received all of his medications today including his blood pressure meds. He reports a headache that started 2 hours prior to presentation. His headache is posterior, 5/10 He has no other complaints or concerns. No fevers, chills pain He has not had any cough, sore throat, nausea, vomiting pain Denies any chest pain or shortness of breath Per care home staff, the patient is at his current baseline Related Data Home Medications ?Medication ?Instructions ?Recorded ?Confirmed lorazepam 0.5 mg tablet (Ativan) 0.5 mg PO DAILY PRN Anxiety 07/24/20 08/28/24 glucose 5 % oral solution 15 g PO Q15M PRN hypoglycemia 12/28/22 02/14/24 blood-glucose meter (FreeStyle 05/17/23 08/28/24 Lite Meter kit) trazodone 100 mg tablet 200 mg PO BEDTIME 09/29/23 08/28/24 fluoxetine 40 mg capsule (Prozac) 40 mg PO DAILY 01/27/24 08/28/24 brexpiprazole 1 mg tablet (Rexulti) 1 mg PO BEDTIME 04/27/24 atorvastatin 80 mg tablet (Lipitor) 80 mg PO BEDTIME 08/28/24 08/28/24 tamsulosin 0.4 mg capsule (Flomax) 0.4 mg PO BEDTIME 08/28/24 08/28/24 Previous Rx's ?Medication ?Instructions ?Recorded miscellaneous medical supply #1 ea 07/11/21 miscellaneous medical supply See Rx Instructions miscellaneous 05/14/22 .COMPLEX #1 ea hydralazine 50 mg tablet 50 mg PO TID 90 days #270 tabs 11/05/22 lancets 26 gauge (Easy Touch #100 ea 08/09/23 Safety Lancets) lactulose 10 gram/15 mL oral 30 ml PO .q72 h PRN constipation 09/29/23 solution (Enulose) #473 mL cholecalciferol (vitamin D3) 25 25 mcg PO DAILY 90 days #90 tabs 10/29/23 mcg (1,000 unit) tablet losartan 50 mg tablet 75 mg (1.5 x 50 mg) PO DAILY 1 12/27/23 month #45 tabs dextrose 15 gram/33 gram oral gel See Rx Instructions PO .COMPLEX 12/31/23 packet (Dex4 Glucose) #198 grams blood sugar diagnostic (FreeStyle #100 ea 02/22/24 Lite Strips) pen needle, diabetic 31 gauge x 1 ea miscellaneous TID 28 days #84 02/22/24 5/16 (Easy Touch) ea apixaban 5 mg tablet (Eliquis) 5 mg PO BID #56 tabs 05/04/24 empagliflozin 10 mg tablet 10 mg PO QAM #28 tabs 05/04/24 (Jardiance) metoprolol succinate 25 mg 25 mg PO BEDTIME 28 days #28 tabs 05/04/24 tablet,extended release 24 hr polyethylene glycol 3350 17 17 g PO BID #1,020 grams 05/04/24 gram/dose oral powder sennosides 8.6 mg tablet (senna) 8.6 mg PO BID #56 tabs 05/04/24 ursodiol 300 mg capsule 300 mg PO BID #56 caps 05/04/24 atorvastatin 80 mg tablet 80 mg PO BEDTIME 90 days #90 tabs 05/22/24 hydrocortisone 1 % topical cream 1 appl topical TID PRN skin 05/22/24 irritation #28.35 grams albuterol sulfate 90 mcg/actuation 2 puff inhalation Q6H PRN 06/08/24 aerosol inhaler shortness of breath or wheezing #8.5 grams aspirin 81 mg tablet,delayed 81 mg PO QAM 90 days #90 tabs 06/16/24 release dulaglutide 3 mg/0.5 mL 3 mg (0.5 mL) subcut QWEEK #2 mL 06/16/24 subcutaneous pen injector (Trulicity) insulin degludec 200 unit/mL (3 46 unit (0.23 mL) subcut DAILY 30 07/17/24 mL) subcutaneous pen ( #6.9 mL FlexTouch U-200 insulin) acetaminophen 325 mg tablet 650 mg (2 x 325 mg) PO Q6H PRN 08/02/24 (Tylenol) temp, headache or general discomfort 30 days #120 tabs ascorbic acid (vitamin C) 500 mg 500 mg PO BID 3 months #180 tabs 08/14/24 tablet multivitamin,tx-minerals 1 cap PO DAILY #90 caps 09/18/24 (Multi-Vitamin HP/Minerals capsule) nifedipine 30 mg tablet,extended 30 mg PO DAILY 30 days #30 tabs 09/18/24 release 24 hr (Procardia XL) Allergies Allergy/AdvReac Type Severity Reaction Status Date / Time amlodipine [From [facility]] Allergy Severe due to Verified 09/23/24 21:00 poor renal function ibuprofen Allergy Severe 2/2 renal Verified 09/23/24 21:00 function Review of Systems 2 Constitutional: Constitutional: Denies body ache(s), Denies chills, Denies fever(s), Denies frequent falls, Reports headache(s) and Denies weakness Eyes: Eyes: Denies blurry vision ENT: Denies vertigo, Denies dizziness and Reports headache(s) Cardiovascular: Cardiovascular: Denies chest pain and Denies dyspnea Respiratory: Respiratory: Denies cough and Denies dyspnea Gastrointestinal: Gastrointestinal: Denies abdominal pain, Denies nausea and Denies vomiting Musculoskeletal: Musculoskeletal: Denies back pain Neurologic: Reports Abnormal speech present (Mild dysarthria that is reportedly baseline), Denies vertigo, Denies dizziness, Denies frequent falls, Reports headache(s) and Denies weakness Psychiatric: Psychiatric: Denies anxiety and Denies suicidal ideation FOR[facility]LY [facility], [facility] Past Medical History Medical History Skin lesion Squamous cell carcinoma of skin Encephalopathy Cerebrovascular accident Hypoglycemia unawareness associated with type 2 diabetes mellitus Diabetes type 2, uncontrolled Type 2 diabetes mellitus with diabetic polyneuropathy Essential hypertension Epigastric pain Skin cancer Postoperative bleeding from incision Skin lesion Stroke Type 2 diabetes mellitus with chronic kidney disease Chronic kidney disease, stage 3 Aphagia Unsteady gait Anemia Hypertensive chronic kidney disease with stage 1 through stage 4 chronic kidney disease, or unspecified chronic kidney disease CKD (chronic kidney disease) Hearing loss Preglaucoma Vascular device, implant, or graft complication Bronchitis HTN (hypertension) Hyperlipidemia Hyperlipidemia Vitamin D deficiency Vitamin D deficiency Constipation GERD (gastroesophageal reflux disease) Diabetes Hemiplegia Surgical History History of removal of cyst (~02/09/22) Hx of cataract surgery History of surgical removal of skin lesion History of exploratory laparotomy Family History Family History Father Myocardial infarction Mother Throat cancer Diabetes Family/Other FH: mental illness Brother In good health Sister In good health Sister In good health Daughter In good health Social History Social History 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 Household Members Other:: care home Housing: House Do you presently have visiting nurse or other home services: Yes Alcohol intake: never Patient Tobacco Use Status: Former Tobacco user Tobacco use type: Cigarette Cigarette Packs Per Day: 2 Cigarettes Per Day: 40.0 Years Smoked: 16 Smoked in Last 30 Days: No e-Cigarette/Vaping Use: Never Used Second Hand Smoke Exposure: No Use of substances other than those prescribed or required for medical reasons: No Advance Directives: Yes Advance Directives on File: Yes Advance Directives Date on File: 07/04/24 Do you have a plan to hurt others: No Plan service: No Current occupational status: disabled Current occupational exposures/hazards: No Cognitive needs: Yes (walker) Hearing needs: No Vision needs: No Physical Exam ED Vital Signs: Vital Signs - 24 hr 09/23/24 20:56 09/23/24 22:17 09/23/24 23:17 Temperature 98.8 F Pulse Rate 64 73 68 Respiratory Rate 17 18 18 Blood Pressure 189/70 H 168/76 H 168/76 H Pulse Oximetry 94 Oxygen Delivery Method Room Air BMI result Body Mass Index 27.4 Const General: healthy appearing, comfortable, no acute distress, alert and awake Nutritional Appearance: well nourished Orientation/consciousness: patient oriented x3 HENMT Head: Yes normocephalic and Yes atraumatic Eyes Eyelids: Yes eyelids normal Conjunctivae: conjunctivae normal Sclerae: sclerae normal Corneas: corneas normal Pupils: Equal, round and reactive pupils present EOM: EOMs intact bilaterally Neck Neck: Yes full ROM Resp Effort & Inspection: normal respiratory effort, able to speak in complete sentences and not labored Cardio Rate: regular rate Rhythm: regular rhythm GI Inspection: No distended Palpation (GI): Soft to palpation, not firm, nontender, no guarding and not rigid Skin General skin exam: elasticity normal Neuro General: patient oriented x3 Cranial nerves: Yes Equal, round and reactive pupils present and Yes Bilaterally intact EOM present Cognition (Neuro): normal cognition Speech: Abnormal speech present (Mild dysarthria that is reportedly baseline) Extrem Other: Moving all extremities well without any obvious deformities Course Reevaluation(s) Reevaluation #1: Patient's headache has resolved with Fioricet, we will discharge the patient home Time: 00:05 Medications Administered Discontinued Medications Generic Name Dose Route Start Last Admin Trade Name Freq PRN Reason Stop Dose Admin Acetaminophen/Butalbital/Caffeine 1 tab 09/23/24 23:07 09/23/24 23:19 Butalb/Acetamin/Caff 50/325/40 Tablet PO 09/23/24 23:08 1 tab ONCE ONE Administration Medical Decision Making Medical Decision Making [facility] Narrative: 64-year-old male past medical history as documented above presents for evaluation of a headache and hypertension. The patient is mildly hypertensive on arrival. His blood pressure is splint 68/76. He appears to be at his neurologic baseline per care home staff and previous hospitalist notes due to his CVA. The patient has taken all of his medications today including his antihypertensive medications, this was confirmed with his care home staff. We will treat his headache with Fioricet, given that he is on apixaban that he had a CT scan of the brain to evaluate for hemorrhage Differential Diagnosis Differential Diagnoses: The differential diagnosis associated with the presentation includes Acute headache Hypertension Hypertensive urgency Intracranial hemorrhage Viral syndrome Lab Data [facility] Lab Attestation statement: I reviewed the patient's lab results. No leukocytosis or left shift. The patient has a chronic anemia that is likely related to his anemia of chronic disease and chronic kidney disease. Patient's renal function is actually improved to where it was 3-1/2 weeks ago with a normal BUN of 14 with a creatinine of 1.50. No significant electrolyte abnormalities. Troponin is within normal limits 09/23/24 21:06 09/23/24 22:04 Labs: Lab Results 09/23/24 09/23/24 Range/Units 21:06 22:04 WBC 10.4 (4.8-10.8) X10*3/uL RBC 4.23 L (4.60-5.80) X10*6/uL Hgb 12.4 L (14.0-18.0) g/dl Hct 37.8 L (42.0-52.0) % MCV 89.4 (80.0-98.0) fL MCH 29.3 (27.0-33.0) pg MCHC 32.8 (31.0-36.0) g/dl RDW 13.4 (11.0-16.0) % Plt Count 216 (160-400) X10*3/uL MPV 11.1 (9.4-12.4) fL Immature Gran % (Auto) 0.3 (0.0-0.4) % Neut % (Auto) 59.2 (45-73) % Lymph % (Auto) 29.9 (20-40) % [place] % (Auto) 8.1 (2-11) % Eos % (Auto) 1.9 (0-4) % Baso % (Auto) 0.6 (0-2) % Lymph # (Auto) 3.1 (1.2-4.9) X10*3/uL [place] # (Auto) 0.8 (0.1-1.2) X10*3/uL Eos # (Auto) 0.2 (0.0-0.4) X10*3/uL Baso # (Auto) 0.1 (0.0-0.2) X10*3/uL Abs Immat Gran (auto) 0.03 (0.00-0.03) X10*3/uL Absolute Neuts (auto) 6.2 (2.0-8.3) x10*3/uL Absolute Nucleated RBC 0.000 (0.0-0.012) X10*3/uL Nucleated RBC % (auto) 0.0 (0.0-0.2) /100WBC Sodium 145 (135-145) mmol/L Potassium 4.0 (3.3-5.1) mmol/L Chloride 112 H (96-108) mmol/L Carbon Dioxide 27 (22-29) mmol/L Anion Gap 10 L (12-20) BUN 14 (9-16) mg/dL Creatinine 1.50 H (0.5-1.4) mg/dL Estim Creat Clear Calc 49.4 Estimated GFR 47 Random Glucose 99 (60-115) mg/dL Calcium 9.1 (8.4-10.2) mg/dL Total Bilirubin 0.2 (0.0-1.0) mg/dL AST 20 (5-37) U/L ALT 13 (0-40) U/L Alkaline Phosphatase 69 (39-117) U/L Troponin I High Sens 5.7 (<3.5-35.0) ng/L Total Protein 6.7 (6.5-8.0) g/dL Albumin 3.8 (3.5-5.0) g/dL Radiology Impression Discussion of test interpretation with radiology: I have reviewed the radiologist's reading. Radiologist Impression: FINDINGS: There is cerebral volume loss with prominence of the lateral and the third ventricles. The cortical sulci are widened appropriately. The fourth ventricle and basal cisterns are normally outlined. There is left frontoparietal and right parietal encephalomalacia consistent with old infarcts. There is no acute territorial defect, hemorrhage or midline shift. The extra-axial spaces are unremarkable. Calvarium/scalp: Intact. Maxillofacial sinuses and mastoids: Clear as visualized. CT/CT head/brain wo IV con IMPRESSION: 1. No acute intracranial pathology. 2. Old left frontoparietal and right parietal infarcts. 3. Cerebral volume loss. Electronically signed by: Naseem Monaco MD 09/23/2024 11:56 PM [facility] [place] Discharge Plan Discharge Clinical Impression: Headache HTN (hypertension) Qualifiers: Hypertension type: essential hypertension Qualified Code(s): I10 - Essential (primary) hypertension Patient Disposition: Home, Self-Care Instructions: Chronic Hypertension (ED), Acute Headache (ED) Additional Instructions: Your workup in the ER today was reassuring. Your blood pressure was slightly elevated. I do recommend continuing your home medications as prescribed Your blood work today was reassuring. The CT scan of your brain was also reassuring Prescriptions: No Action hydralazine 50 mg tablet 50 mg PO TID 90 Days Qty: 270 2RF Protocol: Hold for SBP< HOLD for SBP < : 110 (DME) lancets [Easy Touch Safety Lancets] 26 gauge misc See Rx Instructions .ROUTE .COMPLEX Qty: 100 11RF Dose Instruction: USE 2-3 TIMES A DAY DIRECTED FOR BLOOD GLUCOSE MONITORING Rx Instructions: USE 2-3 TIMES A DAY DIRECTED FOR BLOOD GLUCOSE MONITORING losartan 50 mg tablet 75 mg PO DAILY 30 Days Qty: 45 10RF dextrose [Dex4 Glucose] 15 gram/33 gram gel in packet See Rx Instructions PO .COMPLEX Qty: 198 4RF Rx Instructions: 15 gm pRN hypoglycemia (DME) FreeStyle Lite Strips Strip See Rx Instructions .ROUTE .COMPLEX Qty: 100 11RF Dose Instruction: USE TO TEST BLOOD SUGAR FOUR TIMES A DAY Rx Instructions: USE TO TEST BLOOD SUGAR FOUR TIMES A DAY pen needle, diabetic [Easy Touch] 31 gauge x 5/16 needle 1 ea miscellaneous TID 28 Days Qty: 84 11RF Eliquis 5 mg tablet 5 mg PO BID Qty: 56 11RF Rx Instructions: Report any excessive bleeding Jardiance 10 mg tablet 10 mg PO QAM Qty: 28 6RF metoprolol succinate 25 mg tablet extended release 24 hr 25 mg PO BEDTIME 28 Days Qty: 28 11RF Rx Instructions: Do not crush/chew sennosides [senna] 8.6 mg tablet 8.6 mg PO BID Qty: 56 11RF polyethylene glycol 3350 17 gram/dose powder 17 g PO BID Qty: 1020 8RF ursodiol 300 mg capsule 300 mg PO BID Qty: 56 11RF Trulicity 3 mg/0.5 mL pen injector 3 mg subcut QWEEK Qty: 2 4RF aspirin 81 mg tablet,delayed release (DR/EC) 81 mg PO QAM 90 Days Qty: 90 1RF Rx Instructions: Do not crush/chew Tresiba FlexTouch U-200 200 unit/mL (3 mL) insulin pen 46 unit subcut DAILY 30 Days Qty: 6.9 5RF Rx Instructions: Report any blood sugars <70 acetaminophen [Tylenol] 325 mg tablet 650 mg PO Q6H PRN (Reason: temp, headache or general discomfort) 30 Days Qty: 120 3RF Rx Instructions: Take two 325mg tabs every 6 hours as needed for fever over 101, headache, or general discomfort. Contact PCP if symptoms persist greater than 24 hours. ascorbic acid (vitamin C) 500 mg tablet 500 mg PO BID 90 Days Qty: 180 0RF Multi-Vitamin HP/Minerals Capsule 1 cap PO DAILY Qty: 90 1RF Rx Instructions: take for supplement daily with food nifedipine [Procardia XL] 30 mg tablet extended release 24hr 30 mg PO DAILY 30 Days Qty: 30 3RF albuterol sulfate 90 mcg/actuation HFA aerosol inhaler 2 puff inhalation Q6H MDD 8 PRN (Reason: shortness of breath or wheezing) Qty: 8.5 0RF (DME) miscellaneous medical supply Misc See Rx Instructions .ROUTE .MEDSUPPLY Qty: 1 0RF Rx Instructions: R AFO, Daily As directed, 999 days. Disp #1 lorazepam [Ativan] 0.5 mg tablet 0.5 mg PO DAILY PRN (Reason: Anxiety) miscellaneous medical supply Misc See Rx Instructions miscellaneous .COMPLEX Qty: 1 1RF Rx Instructions: Right lateral sole wedge as directed; atorvastatin 80 mg tablet 80 mg PO BEDTIME 90 Days Qty: 90 1RF Rx Instructions: replaces simvastatin 40 mg qhs hydrocortisone 1 % cream 1 appl topical TID PRN (Reason: skin irritation) Qty: 28.35 0RF (DME) blood-glucose meter [FreeStyle Lite Meter] Kit See Rx Instructions .Route Rx Instructions: As directed trazodone 100 mg tablet 200 mg PO BEDTIME lactulose [Enulose] 10 gram/15 mL solution 30 ml PO .q72 h PRN (Reason: constipation) Qty: 473 3RF Rx Instructions: Take every 3 days or every 72 hours as needed. If no effect after 24 hours from dose, contact PCP cholecalciferol (vitamin D3) 25 mcg (1,000 unit) tablet 25 mcg PO DAILY 90 Days Qty: 90 4RF glucose 5 % solution 15 g PO Q15M PRN (Reason: hypoglycemia) fluoxetine [Prozac] 40 mg capsule 40 mg PO DAILY Rexulti 1 mg tablet 1 mg PO BEDTIME tamsulosin [Flomax] 0.4 mg capsule 0.4 mg PO BEDTIME atorvastatin [Lipitor] 80 mg tablet 80 mg PO BEDTIME Print Language: Macedonian
[2024-09-23 23:17] VITALS: BP 168/76; PULSE 68; RESP 18
[2024-09-23] MEDS: Butalb/Acetamin/Caff 50/325/40 TABLET 1 TAB PO (23:19)
--- NOTE | 2024-09-23 23:21 | PC.NURSE ---
pt medicated per mar, tolerated well with water. stenciling machine tender at bedside.
[2024-09-24 00:19] VITALS: BP 150/69; PULSE 58; RESP 12; TEMP 36.9; O2SAT 94
== END 2024-09-24 00:54 | disposition home or self-care (01) ==
PROVIDERS: Emergency Provider Emergency Medicine; PCP Nurse Practitioner Family
DX: R51.9 Headache, unspecified (principal); I10 Essential (primary) hypertension; Z87.891 Personal history of nicotine dependence; Z86.73 Personal history of transient ischemic attack (TIA), and cerebral infarction without residual deficits
CPT/HCPCS: 36415; 70450; 80053; 84484; 85025; 93005; 99284; 99285

== ENCOUNTER → 2024-09-23 21:54 | Outpatient (BNV) | payer OTHER, SELFPAY | PROVIDERS: Emergency Provider Emergency Medicine; PCP Nurse Practitioner Family; Visit Provider Internal Medicine | DX: R00.1 Bradycardia, unspecified (principal); I10 Essential (primary) hypertension | CPT/HCPCS: 93010 ==

== ENCOUNTER 2024-09-25 10:32 | Outpatient (AMB) | payer OTHER, SELFPAY ==
[2024-09-25 10:34] VITALS: BP 122/64; PULSE 73; O2SAT 98; BMI 26.0
--- NOTE | 2024-09-25 10:34 | HO.NEPHOV ---
Vital Signs 09/25/24 10:34 Height 5 ft 8 in Weight 171 lb BMI 26.0 BP 122/64 Blood Pressure Location Lt brachial Position Sitting Pulse 73 Pulse Source Pulse Oximeter Pulse Oximetry (%) 98 Oxygen Delivery Method Room Air Intake Visit Reasons: CKD/ Pt missed 08/29/24 appt Medical Insurance Claims Specialist Required: Yes Medical Insurance Claims Specialist Name: Jacky [id number] Accompanied by: Staff from [employer] Allergies amlodipine [From [facility]] Allergy (Severe, Verified 09/25/24 10:38) due to poor renal function ibuprofen Allergy (Severe, Verified 09/25/24 10:38) 2/2 renal function Medication List - Last Reconciled 09/25/24 by Dileep Byers MD acetaminophen (Tylenol) 650 mg (2 x 325 mg) PO Q6H PRN 30 days albuterol sulfate 90 mcg/actuation 2 puffs inhalation Q6H PRN MDD 8 apixaban (Eliquis) 5 mg PO BID ascorbic acid (vitamin C) 500 mg PO BID 3 months aspirin 81 mg PO QAM 90 days atorvastatin 80 mg PO BEDTIME 90 days atorvastatin (Lipitor) 80 mg PO BEDTIME blood sugar diagnostic (FreeStyle Lite Strips) USE TO TEST BLOOD SUGAR FOUR TIMES A DAY blood-glucose meter (FreeStyle Lite Meter kit) As directed brexpiprazole (Rexulti) 1 mg PO BEDTIME brexpiprazole (Rexulti) 1 mg PO BEDTIME brexpiprazole (Rexulti) 0.5 mg PO DAILY cholecalciferol (vitamin D3) 25 mcg PO DAILY 90 days dextrose (Dex4 Glucose) 15 gm pRN hypoglycemia dulaglutide (Trulicity) 3 mg (0.5 mL) subcut QWEEK empagliflozin (Jardiance) 10 mg PO QAM fluoxetine (Prozac) 40 mg PO DAILY glucose 15 grams PO Q15M PRN hydralazine 50 mg See Protocol PO TID 90 days hydrocortisone 1% 1 appl topical TID PRN insulin degludec (Tresiba FlexTouch U-200 insulin) 46 units (0.23 mL) subcut DAILY 30 days lactulose (Enulose) 30 mL PO .q72 h PRN lancets (Easy Touch Safety Lancets) USE 2-3 TIMES A DAY DIRECTED FOR BLOOD GLUCOSE MONITORING lorazepam (Ativan) 0.5 mg PO DAILY PRN losartan 75 mg (1.5 x 50 mg) PO DAILY 1 month metoprolol succinate ER 25 mg PO BEDTIME 28 days miscellaneous medical supply R AFO, Daily As directed, 999 days. Disp #1 miscellaneous medical supply Right lateral sole wedge as directed; multivitamin,tx-minerals (Multi-Vitamin HP/Minerals capsule) 1 cap PO DAILY nifedipine ER (Procardia XL) 30 mg PO DAILY 30 days pen needle, diabetic (Easy Touch) 1 ea miscellaneous TID 28 days polyethylene glycol 3350 17 grams PO BID sennosides (senna) 8.6 mg PO BID tamsulosin (Flomax) 0.4 mg PO BEDTIME trazodone 200 mg PO BEDTIME ursodiol 300 mg PO BID HPI Comments Details: 63-year-old man with a history of CKD and hypertension. Here for follow-up. Today he has no specific complaints today. Accompanied by caregiver. Medical Insurance Claims Specialist service was used [facility] Medical History Skin lesion Squamous cell carcinoma of skin Encephalopathy Cerebrovascular accident Hypoglycemia unawareness associated with type 2 diabetes mellitus Diabetes type 2, uncontrolled Type 2 diabetes mellitus with diabetic polyneuropathy Essential hypertension Epigastric pain Skin cancer Postoperative bleeding from incision Skin lesion Stroke Type 2 diabetes mellitus with chronic kidney disease Chronic kidney disease, stage 3 Aphagia Unsteady gait Anemia Hypertensive chronic kidney disease with stage 1 through stage 4 chronic kidney disease, or unspecified chronic kidney disease CKD (chronic kidney disease) Hearing loss Preglaucoma Vascular device, implant, or graft complication Bronchitis HTN (hypertension) Hyperlipidemia Hyperlipidemia Vitamin D deficiency Vitamin D deficiency Constipation GERD (gastroesophageal reflux disease) Diabetes Hemiplegia Surgical History History of removal of cyst (~02/09/22) Hx of cataract surgery History of surgical removal of skin lesion History of exploratory laparotomy Family History Father Myocardial infarction Mother Throat cancer Diabetes Family/Other FH: mental illness Brother In good health Sister In good health Sister In good health Daughter In good health Social History 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 Household Members Other:: care home Housing: House Do you presently have visiting nurse or other home services: Yes Alcohol intake: never Patient Tobacco Use Status: Former Tobacco user Tobacco use type: Cigarette Cigarette Packs Per Day: 2 Cigarettes Per Day: 40.0 Years Smoked: 16 e-Cigarette/Vaping Use: Never Used Second Hand Smoke Exposure: No Advance Directives Date on File: 07/04/24 service: No Current occupational status: disabled Current occupational exposures/hazards: No Cognitive needs: Yes (walker) Hearing needs: No Vision needs: No Physical Exam Vital Signs: Last Vital Signs Pulse 73 09/25/24 10:34 BP 122/64 09/25/24 10:34 Pulse Ox 98 09/25/24 10:34 Oxygen Delivery Method Room Air 09/25/24 10:34 BMI result Body Mass Index 26.0 Awake. Comfortable. Neck is supple. Mucosa moist. Lungs bilateral scattered rhonchi. Heart S1-S2 heard no gallop. Abdomen soft. Extremities no edema. No involuntary movements. No myoclonus. Results Reviewed Nephrology Results: Hgb 12.4 g/dl (14.0-18.0) L 09/23/24 WBC 10.4 X10*3/uL (4.8-10.8) 09/23/24 Plt Count 216 X10*3/uL (160-400) 09/23/24 Sodium 145 mmol/L (135-145) 09/23/24 Potassium 4.0 mmol/L (3.3-5.1) 09/23/24 Chloride 112 mmol/L (96-108) H 09/23/24 Carbon Dioxide 27 mmol/L (22-29) 09/23/24 BUN 14 mg/dL (9-16) 09/23/24 Creatinine 1.50 mg/dL (0.5-1.4) H 09/23/24 Calcium 9.1 mg/dL (8.4-10.2) 09/23/24 Urine Creatinine 118.74 mg/dL 08/29/24 Assessment & Plan Assessment & Plan (1) CKD (chronic kidney disease) stage 4, GFR 15-29 ml/min: Code(s): N18.4 - Chronic kidney disease, stage 4 (severe) Category: Medical (2) Chronic kidney disease, stage 3: Code(s): N18.30 - Chronic kidney disease, stage 3 unspecified Category: Medical Qualifiers: Chronic kidney disease stage 3 subtype: stage 3a (GFR 45-59) Qualified Code(s): N18.31 - Chronic kidney disease, stage 3a Plan 63-year-old man with CKD setting of hypertension. Renal function has improved Goal is to slow the progression of renal disease. Continue to avoid nephrotoxic agents. Keep on losartan for renal protection in view of microalbuminuria. Blood pressure is well controlled at the facility. No changes were made to his antihypertensive regimen. He should stay on low-sodium diet. Orders: Orders Comprehensive Met. Panel 4 Months N18.4 - Chronic kidney disease, stage 4 (severe) Complete Blood Count no Diff 4 Months N18.4 - Chronic kidney disease, stage 4 (severe) Coding Level of Care Code Est Pt Level 4 (67360) Diagnoses CKD (chronic kidney disease) stage 4, GFR 15-29 ml/min N18.4 Stage 3a chronic kidney disease N18.31 Chronic kidney disease stage 3 subtype: stage 3a (GFR 45-59)
== END 2024-09-25 10:51 | disposition home or self-care (01) ==
PROVIDERS: PCP Nurse Practitioner Family; Visit Provider Internal Medicine Hypertension Specialist
DX: N18.4 Chronic kidney disease, stage 4 (severe) (principal)
CPT/HCPCS: 99214

== ENCOUNTER → 2024-09-25 10:32 | Outpatient (BNVA) | payer OTHER, SELFPAY | PROVIDERS: PCP Nurse Practitioner Family; Visit Provider Internal Medicine Hypertension Specialist | DX: N18.4 Chronic kidney disease, stage 4 (severe) (principal) | CPT/HCPCS: 99212 ==

== ENCOUNTER → 2024-10-11 21:30 | Outpatient (BNV) | payer OTHER, SELFPAY | PROVIDERS: Emergency Provider Emergency Medicine; PCP Nurse Practitioner Family; Visit Provider Internal Medicine | DX: R07.9 Chest pain, unspecified (principal); R00.1 Bradycardia, unspecified | CPT/HCPCS: 93010 ==

== ENCOUNTER → 2024-10-12 02:25 | Outpatient (BNV) | payer OTHER, SELFPAY | PROVIDERS: Emergency Provider Emergency Medicine; PCP Nurse Practitioner Family; Visit Provider Radiology Diagnostic Radiology | DX: R07.9 Chest pain, unspecified (principal) | CPT/HCPCS: 71045 ==

== ENCOUNTER 2024-10-26 10:55 | Emergency (ER) | payer OTHER, SELFPAY ==
--- NOTE | ~2024-10-26 | CT_ITS ---
CLINICAL HISTORY: abd pain n v d hx of abd surgery in the past CT abdomen and pelvis with contrast Comparison: Noncontrast CT from 10/21/2023 Findings: Mild bibasilar atelectasis and scarring in the [id number]. No liver mass by [address] Calcified remnants of old granulomatous process noted in the nonenlarged spleen. Adrenal glands are within limits of normal. Mild volume loss of the pancreas. Cholelithiasis by CT. No hydronephrosis of the right kidney. Mild prominence of the left renal pelvis is nonspecific without associated or defined stone. Low-density lesion in the medial aspect of the left kidney measuring 1.5 cm and not definitively proven as simple cyst (image number 26 of series 2); dense appearing on comparison noncontrast CT, in the study with motion artifacts. Small mesenteric lymph nodes may be reactive. No small bowel obstruction. Moderate stool burden with enteric contrast and large intestine. The appendix is not definitively seen and likely surgically absent given metal opacities of the dorsal cecum with motion artifacts. Varicose veins noted superficially. Prostate gland measures 5 cm transversely indents upon the urinary bladder with moderate to severe wall thickening of the urinary bladder. Mild fluid in the lower abdomen and pelvis is nonspecific and favored to be related to distal colitis and mild proctitis, given wall thickening of the distal large intestine. IVC filter is redemonstrated. Calcified and noncalcified plaque include imaged aorta and its branches. Degenerative changes include hips, SI joints, and spine. Mild vertebral height losses appear old chronic. Fragments of the angulation about the coccyx appear old. IMPRESSION: 1. Mild fluid in the pelvis nonspecific concerning for distal colitis. 2. Moderate to severe wall thickening of the urinary bladder is nonspecific. Differential considerations include cystitis. 3. Cholelithiasis by CT. 4. Indeterminate 1.5 cm lesion of the left kidney. Recommend six-month follow-up or nonemergent characterization with renal mass imaging. This document has been electronically signed by: Chris Dubon MD on 10/26/2024 20:23:29
[2024-10-26 11:54] VITALS: BP 133/64; PULSE 63; RESP 18; TEMP 36.3; O2SAT 97; BMI 26.6
--- NOTE | 2024-10-26 11:59 | ED.GENADULT ---
HPI - General Adult General Stated complaint: l upper abd pain Related Data Home Medications ?Medication ?Instructions ?Recorded ?Confirmed lorazepam 0.5 mg tablet (Ativan) 0.5 mg PO DAILY PRN Anxiety 07/24/20 09/25/24 glucose 5 % oral solution 15 g PO Q15M PRN hypoglycemia 12/28/22 09/25/24 blood-glucose meter (FreeStyle 05/17/23 09/25/24 Lite Meter kit) trazodone 100 mg tablet 200 mg PO BEDTIME 09/29/23 09/25/24 fluoxetine 40 mg capsule (Prozac) 40 mg PO DAILY 01/27/24 09/25/24 brexpiprazole 1 mg tablet (Rexulti) 1 mg PO BEDTIME 04/27/24 09/25/24 atorvastatin 80 mg tablet (Lipitor) 80 mg PO BEDTIME 08/28/24 09/25/24 tamsulosin 0.4 mg capsule (Flomax) 0.4 mg PO BEDTIME 08/28/24 09/25/24 brexpiprazole 0.5 mg tablet 0.5 mg PO DAILY 09/25/24 09/25/24 (Rexulti) brexpiprazole 1 mg tablet (Rexulti) 1 mg PO BEDTIME 09/25/24 09/25/24 Previous Rx's ?Medication ?Instructions ?Recorded miscellaneous medical supply #1 ea 07/11/21 miscellaneous medical supply See Rx Instructions miscellaneous 05/14/22 .COMPLEX #1 ea hydralazine 50 mg tablet 50 mg PO TID 90 days #270 tabs 11/05/22 lancets 26 gauge (Easy Touch #100 ea 08/09/23 Safety Lancets) lactulose 10 gram/15 mL oral 30 ml PO .q72 h PRN constipation 09/29/23 solution (Enulose) #473 mL dextrose 15 gram/33 gram oral gel See Rx Instructions PO .COMPLEX 12/31/23 packet (Dex4 Glucose) #198 grams blood sugar diagnostic (FreeStyle #100 ea 02/22/24 Lite Strips) pen needle, diabetic 31 gauge x 1 ea miscellaneous TID 28 days #84 02/22/24 5/16 (Easy Touch) ea apixaban 5 mg tablet (Eliquis) 5 mg PO BID #56 tabs 08/01/24 empagliflozin 10 mg tablet 10 mg PO QAM #28 tabs 05/04/24 (Jardiance) metoprolol succinate 25 mg 25 mg PO BEDTIME 28 days #28 tabs 05/04/24 tablet,extended release 24 hr polyethylene glycol 3350 17 17 g PO BID #1,020 grams 05/04/24 gram/dose oral powder sennosides 8.6 mg tablet (senna) 8.6 mg PO BID #56 tabs 05/04/24 ursodiol 300 mg capsule 300 mg PO BID #56 caps 05/04/24 atorvastatin 80 mg tablet 80 mg PO BEDTIME 90 days #90 tabs 05/22/24 hydrocortisone 1 % topical cream 1 appl topical TID PRN skin 05/22/24 irritation #28.35 grams albuterol sulfate 90 mcg/actuation 2 puff inhalation Q6H PRN 06/08/24 aerosol inhaler shortness of breath or wheezing #8.5 grams aspirin 81 mg tablet,delayed 81 mg PO QAM 90 days #90 tabs 06/16/24 release insulin degludec 200 unit/mL (3 46 unit (0.23 mL) subcut DAILY 30 07/17/24 mL) subcutaneous pen ( #6.9 mL FlexTouch U-200 insulin) acetaminophen 325 mg tablet 650 mg (2 x 325 mg) PO Q6H PRN 08/02/24 (Tylenol) temp, headache or general discomfort 30 days #120 tabs ascorbic acid (vitamin C) 500 mg 500 mg PO BID 3 months #180 tabs 08/14/24 tablet multivitamin,tx-minerals 1 cap PO DAILY #90 caps 09/18/24 (Multi-Vitamin HP/Minerals capsule) nifedipine 30 mg tablet,extended 30 mg PO DAILY 30 days #30 tabs 09/18/24 release 24 hr (Procardia XL) dulaglutide 3 mg/0.5 mL 3 mg (0.5 mL) subcut QWEEK #2 mL 10/11/24 subcutaneous pen injector ([facility]) losartan 50 mg tablet 50 mg PO BID #45 tabs 10/12/24 cholecalciferol (vitamin D3) 25 25 mcg PO DAILY 90 days #90 tabs 10/23/24 mcg (1,000 unit) tablet Allergies Allergy/AdvReac Type Severity Reaction Status Date / Time amlodipine [From [facility]] Allergy Severe due to Verified 10/26/24 12:00 poor renal function ibuprofen Allergy Severe 2/2 renal Verified 10/26/24 12:00 function [facility] Past Medical History Medical History Skin lesion Squamous cell carcinoma of skin Encephalopathy Cerebrovascular accident Hypoglycemia unawareness associated with type 2 diabetes mellitus Diabetes type 2, uncontrolled Type 2 diabetes mellitus with diabetic polyneuropathy Essential hypertension Epigastric pain Skin cancer Postoperative bleeding from incision Skin lesion Stroke Type 2 diabetes mellitus with chronic kidney disease Chronic kidney disease, stage 3 Aphagia Unsteady gait Anemia Hypertensive chronic kidney disease with stage 1 through stage 4 chronic kidney disease, or unspecified chronic kidney disease CKD (chronic kidney disease) Hearing loss Preglaucoma Vascular device, implant, or graft complication Bronchitis HTN (hypertension) Hyperlipidemia Hyperlipidemia Vitamin D deficiency Vitamin D deficiency Constipation GERD (gastroesophageal reflux disease) Diabetes Hemiplegia Surgical History History of removal of cyst (~02/09/22) Hx of cataract surgery History of surgical removal of skin lesion History of exploratory laparotomy Family History Family History Father Myocardial infarction Mother Throat cancer Diabetes Family/Other FH: mental illness Brother In good health Sister In good health Sister In good health Daughter In good health Social History Social History 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 Household Members Other:: senior living Housing: House Do you presently have visiting nurse or other home services: Yes Alcohol intake: current Alcohol intake frequency: holidays/special occasions only Patient Tobacco Use Status: Former Tobacco user Tobacco use type: Cigarette Cigarette Packs Per Day: 2 Cigarettes Per Day: 40.0 Years Smoked: 16 e-Cigarette/Vaping Use: Never Used Second Hand Smoke Exposure: No Substance Use Type: Marijuana Advance Directives Date on File: 07/04/24 service: No Current occupational status: disabled Current occupational exposures/hazards: No Cognitive needs: Yes (walker) Hearing needs: No Vision needs: No Course Course Course Narrative: RME, this is a rapid medical exam performed by Mati Smith please refer to primary provider for complete H&P- 64-year-old male with past medical history significant for chronic kidney disease, GERD, DVT on Eliquis, hypertension, vertigo, diabetes presents for evaluation of upper abdominal pain and nausea. Plan for labs, we will defer advanced imaging to primary ER provider Discharge Plan Discharge Prescriptions: No Action hydralazine 50 mg tablet 50 mg PO TID 90 Days Qty: 270 2RF Protocol: Hold for SBP< HOLD for SBP < : 110 (DME) lancets [Easy Touch Safety Lancets] 26 gauge misc See Rx Instructions .ROUTE .COMPLEX Qty: 100 11RF Dose Instruction: USE 2-3 TIMES A DAY DIRECTED FOR BLOOD GLUCOSE MONITORING Rx Instructions: USE 2-3 TIMES A DAY DIRECTED FOR BLOOD GLUCOSE MONITORING dextrose [Dex4 Glucose] 15 gram/33 gram gel in packet See Rx Instructions PO .COMPLEX Qty: 198 4RF Rx Instructions: 15 gm pRN hypoglycemia (DME) FreeStyle Lite Strips Strip See Rx Instructions .ROUTE .COMPLEX Qty: 100 11RF Dose Instruction: USE TO TEST BLOOD SUGAR FOUR TIMES A DAY Rx Instructions: USE TO TEST BLOOD SUGAR FOUR TIMES A DAY pen needle, diabetic [Easy Touch] 31 gauge x 5/16 needle 1 ea miscellaneous TID 28 Days Qty: 84 11RF Eliquis 5 mg tablet 5 mg PO BID Qty: 56 11RF Rx Instructions: Report any excessive bleeding Jardiance 10 mg tablet 10 mg PO QAM Qty: 28 6RF metoprolol succinate 25 mg tablet extended release 24 hr 25 mg PO BEDTIME 28 Days Qty: 28 11RF Rx Instructions: Do not crush/chew sennosides [senna] 8.6 mg tablet 8.6 mg PO BID Qty: 56 11RF polyethylene glycol 3350 17 gram/dose powder 17 g PO BID Qty: 1020 8RF ursodiol 300 mg capsule 300 mg PO BID Qty: 56 11RF aspirin 81 mg tablet,delayed release (DR/EC) 81 mg PO QAM 90 Days Qty: 90 1RF Rx Instructions: Do not crush/chew Tresiba FlexTouch U-200 200 unit/mL (3 mL) insulin pen 46 unit subcut DAILY 30 Days Qty: 6.9 5RF Rx Instructions: Report any blood sugars <70 acetaminophen [Tylenol] 325 mg tablet 650 mg PO Q6H PRN (Reason: temp, headache or general discomfort) 30 Days Qty: 120 3RF Rx Instructions: Take two 325mg tabs every 6 hours as needed for fever over 101, headache, or general discomfort. Contact PCP if symptoms persist greater than 24 hours. ascorbic acid (vitamin C) 500 mg tablet 500 mg PO BID 90 Days Qty: 180 0RF Multi-Vitamin HP/Minerals Capsule 1 cap PO DAILY Qty: 90 1RF Rx Instructions: take for supplement daily with food nifedipine [Procardia XL] 30 mg tablet extended release 24hr 30 mg PO DAILY 30 Days Qty: 30 3RF Trulicity 3 mg/0.5 mL pen injector 3 mg subcut QWEEK Qty: 2 4RF losartan 50 mg tablet 50 mg PO BID Qty: 45 0RF cholecalciferol (vitamin D3) 25 mcg (1,000 unit) tablet 25 mcg PO DAILY 90 Days Qty: 90 4RF albuterol sulfate 90 mcg/actuation HFA aerosol inhaler 2 puff inhalation Q6H MDD 8 PRN (Reason: shortness of breath or wheezing) Qty: 8.5 0RF (DME) miscellaneous medical supply Misc See Rx Instructions .ROUTE .MEDSUPPLY Qty: 1 0RF Rx Instructions: R AFO, Daily As directed, 999 days. Disp #1 lorazepam [Ativan] 0.5 mg tablet 0.5 mg PO DAILY PRN (Reason: Anxiety) miscellaneous medical supply Misc See Rx Instructions miscellaneous .COMPLEX Qty: 1 1RF Rx Instructions: Right lateral sole wedge as directed; atorvastatin 80 mg tablet 80 mg PO BEDTIME 90 Days Qty: 90 1RF Rx Instructions: replaces simvastatin 40 mg qhs hydrocortisone 1 % cream 1 appl topical TID PRN (Reason: skin irritation) Qty: 28.35 0RF (DME) blood-glucose meter [FreeStyle Lite Meter] Kit See Rx Instructions .Route Rx Instructions: As directed trazodone 100 mg tablet 200 mg PO BEDTIME lactulose [Enulose] 10 gram/15 mL solution 30 ml PO .q72 h PRN (Reason: constipation) Qty: 473 3RF Rx Instructions: Take every 3 days or every 72 hours as needed. If no effect after 24 hours from dose, contact PCP glucose 5 % solution 15 g PO Q15M PRN (Reason: hypoglycemia) Rexulti 0.5 mg tablet 0.5 mg PO DAILY Rexulti 1 mg tablet 1 mg PO BEDTIME fluoxetine [Prozac] 40 mg capsule 40 mg PO DAILY Rexulti 1 mg tablet 1 mg PO BEDTIME tamsulosin [Flomax] 0.4 mg capsule 0.4 mg PO BEDTIME atorvastatin [Lipitor] 80 mg tablet 80 mg PO BEDTIME Print Language: Japanese
[2024-10-26 14:17] LABS: MANUAL DIFF FLAG NO
[2024-10-26 14:20] LABS: Appearance Urine Clear; Color Urine Yellow; Glucose Urine UA >=1000 mg/dL (Negative); Leukocyte Esterase Urine Negative (Negative); Nitrite Urine Negative (Negative); PH 5.5 (5.0-9.0); UMIC TRIGGER UACC YES; Urine Blood Negative (Negative); Urine Ketones Negative (Negative); Urine Protein 100 (2+) mg/dL (Neg-Trace)
[2024-10-26 14:22] LABS: Bacteria Urine None Seen (None Seen); Hyaline Casts Urine 0-2 /LPF (0-2); RBC Urine 0-2 /HPF (0-2); Squamous Epithelial Cell Urine 0-2 /HPF (0-2); WBC Urine 0-5 /HPF (0-5)
[2024-10-26 14:23] LABS: Basophils Percent Auto 0.4 % (0-2); Eosinophils Absolute Auto 0.2 X10*3/uL (0.0-0.4); Eosinophils Percent Auto 2.4 % (0-4); Hematocrit 38.9 % (42.0-52.0); Hemoglobin 12.9 g/dl (14.0-18.0); Imm Gran Abs Auto 0.03 X10*3/uL (0.00-0.03); Imm Gran Pct Auto 0.3 % (0.0-0.4); Lymphocytes Absolute Auto 3.4 X10*3/uL (1.2-4.9); Lymphocytes Percent Auto 35.5 % (20-40); Mean Corpuscular HGB Conc 33.2 g/dl (31.0-36.0); Mean Corpuscular Hemoglobin 29.5 pg (27.0-33.0); Mean Platelet Volume 10.9 fL (9.4-12.4); Monocytes Absolute Auto 0.7 X10*3/uL (0.1-1.2); Monocytes Percent Auto 7.5 % (2-11); Neutrophils Absolute Auto 5.1 x10*3/uL (2.0-8.3); Neutrophils Percent Auto 53.9 % (45-73); Platelet Count 223 X10*3/uL (160-400); Red Blood Count 4.37 X10*6/uL (4.60-5.80); Red Cell Distribution Width 12.9 % (11.0-16.0); White Blood Count 9.6 X10*3/uL (4.8-10.8)
[2024-10-26 14:35] LABS: Alanine Aminotransferase 10 U/L (0-40); Albumin Level 4.2 g/dL (3.5-5.0); Alkaline Phosphatase 72 U/L (39-117); Anion Gap 9 (12-20); Aspartate Amino Transferase 17 U/L (5-37); Bilirubin Total 0.3 mg/dL (0.0-1.0); Blood Urea Nitrogen 21 mg/dL (9-16); Calcium 9.3 mg/dL (8.4-10.2); Carbon Dioxide 23 mmol/L (22-29); Chloride 116 mmol/L (96-108); Creatinine Clr Calc Pharmacy 35.7; Estimated Glomerular Filt Rate 33; Glucose Random 98 mg/dL (60-115); Lipase 31 U/L (8-78); Potassium 4.6 mmol/L (3.3-5.1); Sodium 143 mmol/L (135-145); Total Protein 7.6 g/dL (6.5-8.0)
[2024-10-26 15:06] LABS: Influenza A PCR NEGATIVE (Negative); Influenza B PCR NEGATIVE (Negative); Resp Syncy Virus RNA Qual PCR NEGATIVE (Negative); SARS COV2 PCR INHOUSE NEGATIVE (Negative)
--- NOTE | 2024-10-26 17:08 | ED.ABDPAIN ---
HPI - Abdominal Pain General Chief Complaint: Abdominal Pain Stated Complaint: l upper abd pain Time Seen by Provider: 10/26/24 16:45 History of Present Illness HPI narrative: Patient is a 64-year-old male presents today with 4 day history of abdominal pain nausea vomiting diarrhea. Symptoms been ongoing since Wednesday. Has a history of abdominal surgery question type of surgery that was done. Patient had a previous history of CVA. Left him with left-sided weakness. History of renal insufficiency. History of GERD. 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 Related Data Home Medications ?Medication ?Instructions ?Recorded ?Confirmed lorazepam 0.5 mg tablet (Ativan) 0.5 mg PO DAILY PRN Anxiety 07/24/20 09/25/24 glucose 5 % oral solution 15 g PO Q15M PRN hypoglycemia 12/28/22 09/25/24 blood-glucose meter (FreeStyle 05/17/23 09/25/24 Lite Meter kit) trazodone 100 mg tablet 200 mg PO BEDTIME 09/29/23 09/25/24 fluoxetine 40 mg capsule (Prozac) 40 mg PO DAILY 01/27/24 09/25/24 brexpiprazole 1 mg tablet (Rexulti) 1 mg PO BEDTIME 04/27/24 09/25/24 atorvastatin 80 mg tablet (Lipitor) 80 mg PO BEDTIME 08/28/24 09/25/24 tamsulosin 0.4 mg capsule (Flomax) 0.4 mg PO BEDTIME 08/28/24 09/25/24 brexpiprazole 0.5 mg tablet 0.5 mg PO DAILY 09/25/24 09/25/24 (Rexulti) brexpiprazole 1 mg tablet (Rexulti) 1 mg PO BEDTIME 09/25/24 09/25/24 Previous Rx's ?Medication ?Instructions ?Recorded miscellaneous medical supply #1 ea 07/11/21 miscellaneous medical supply See Rx Instructions miscellaneous 05/14/22 .COMPLEX #1 ea hydralazine 50 mg tablet 50 mg PO TID 90 days #270 tabs 11/05/22 lancets 26 gauge (Easy Touch #100 ea 08/09/23 Safety Lancets) lactulose 10 gram/15 mL oral 30 ml PO .q72 h PRN constipation 09/29/23 solution (Enulose) #473 mL dextrose 15 gram/33 gram oral gel See Rx Instructions PO .COMPLEX 12/31/23 packet (Dex4 Glucose) #198 grams blood sugar diagnostic (FreeStyle #100 ea 02/22/24 Lite Strips) pen needle, diabetic 31 gauge x 1 ea miscellaneous TID 28 days #84 02/22/24/16 (Easy Touch) ea apixaban 5 mg tablet (Eliquis) 5 mg PO BID #56 tabs 05/04/24 empagliflozin 10 mg tablet 10 mg PO QAM #28 tabs 05/04/24 (Jardiance) metoprolol succinate 25 mg 25 mg PO BEDTIME 28 days #28 tabs 05/04/24 tablet,extended release 24 hr polyethylene glycol 3350 17 17 g PO BID #1,020 grams 05/04/24 gram/dose oral powder sennosides 8.6 mg tablet (senna) 8.6 mg PO BID #56 tabs 05/04/24 ursodiol 300 mg capsule 300 mg PO BID #56 caps 05/04/24 atorvastatin 80 mg tablet 80 mg PO BEDTIME 90 days #90 tabs 05/22/24 hydrocortisone 1 % topical cream 1 appl topical TID PRN skin 05/22/24 irritation #28.35 grams albuterol sulfate 90 mcg/actuation 2 puff inhalation Q6H PRN 06/08/24 aerosol inhaler shortness of breath or wheezing #8.5 grams aspirin 81 mg tablet,delayed 81 mg PO QAM 90 days #90 tabs 06/16/24 release insulin degludec 200 unit/mL (3 46 unit (0.23 mL) subcut DAILY 30 07/17/24 mL) subcutaneous pen (Tresiba days #6.9 mL FlexTouch U-200 insulin) acetaminophen 325 mg tablet 650 mg (2 x 325 mg) PO Q6H PRN 08/02/24 (Tylenol) temp, headache or general discomfort 30 days #120 tabs ascorbic acid (vitamin C) 500 mg 500 mg PO BID 3 months #180 tabs 08/14/24 tablet multivitamin,tx-minerals 1 cap PO DAILY #90 caps 09/18/24 (Multi-Vitamin HP/Minerals capsule) nifedipine 30 mg tablet,extended 30 mg PO DAILY 30 days #30 tabs 09/18/24 release 24 hr (Procardia XL) dulaglutide 3 mg/0.5 mL 3 mg (0.5 mL) subcut QWEEK #2 mL 10/11/24 subcutaneous pen injector (Trulicity) losartan 50 mg tablet 50 mg PO BID #45 tabs 10/12/24 cholecalciferol (vitamin D3) 25 25 mcg PO DAILY 90 days #90 tabs 10/23/24 mcg (1,000 unit) tablet Allergies Allergy/AdvReac Type Severity Reaction Status Date / Time amlodipine [From [facility]] Allergy Severe due to Verified 10/26/24 12:00 poor renal function ibuprofen Allergy Severe 2/2 renal Verified 10/26/24 12:00 function Review of Systems Review of Systems Positive nausea vomiting Yes all other systems are reviewed and are negative PMFSH Past Medical History Attestation statement: The following information was validated with the patient. Medical History Skin lesion Squamous cell carcinoma of skin Encephalopathy Cerebrovascular accident Hypoglycemia unawareness associated with type 2 diabetes mellitus Diabetes type 2, uncontrolled Type 2 diabetes mellitus with diabetic polyneuropathy Essential hypertension Epigastric pain Skin cancer Postoperative bleeding from incision Skin lesion Stroke Type 2 diabetes mellitus with chronic kidney disease Chronic kidney disease, stage 3 Aphagia Unsteady gait Anemia Hypertensive chronic kidney disease with stage 1 through stage 4 chronic kidney disease, or unspecified chronic kidney disease CKD (chronic kidney disease) Hearing loss Preglaucoma Vascular device, implant, or graft complication Bronchitis HTN (hypertension) Hyperlipidemia Hyperlipidemia Vitamin D deficiency Vitamin D deficiency Constipation GERD (gastroesophageal reflux disease) Diabetes Hemiplegia Surgical History History of removal of cyst (~02/09/22) Hx of cataract surgery History of surgical removal of skin lesion History of exploratory laparotomy Family History Family History Father Myocardial infarction Mother Throat cancer Diabetes Family/Other FH: mental illness Brother In good health Sister In good health Sister In good health Daughter In good health Social History Social History 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 Household Members Other:: senior living Housing: House Do you presently have visiting nurse or other home services: Yes Alcohol intake: current Alcohol intake frequency: holidays/special occasions only Patient Tobacco Use Status: Former Tobacco user Tobacco use type: Cigarette Cigarette Packs Per Day: 2 Cigarettes Per Day: 40.0 Years Smoked: 16 Smoked in Last 30 Days: No e-Cigarette/Vaping Use: Never Used Second Hand Smoke Exposure: No Use of substances other than those prescribed or required for medical reasons: No Substance Use Type: Marijuana Advance Directives: Yes Advance Directives on File: Yes Advance Directives Date on File: 07/04/24 Do you have a plan to hurt others: No Plan service: No Current occupational status: disabled Current occupational exposures/hazards: No Cognitive needs: Yes (walker) Hearing needs: No Vision needs: No Physical Exam ED Vital Signs: Vital Signs - 24 hr 10/26/24 11:54 10/26/24 18:32 Temperature 97.4 F 98.2 F Pulse Rate 63 63 Respiratory Rate 18 16 Blood Pressure 133/64 138/65 Pulse Oximetry 97 96 Oxygen Delivery Method Room Air Room Air BMI result Body Mass Index 26.6 Appearance: Alert. Oriented X3. No acute distress. Eyes: Pupils equal, round and reactive to light. ENT: Pharynx normal. Neck: Normal inspection. Neck supple. No lymph nodes noted. No crepitus CVS: Normal heart rate and rhythm. Pulses normal. Normal S1 and S2 Respiratory: No respiratory distress. Breath sounds normal. No Wheezing. No rales Abdomen: Large midline scar. There is left upper quadrant tenderness is no rebound or guarding that is good bowel sounds noted. Skin: Skin warm and dry. Normal skin color. Normal skin turgor. Extremities: No lower extremity edema. Neurovascular intact to all extremities. No Lacerations. No Rash Neuro: Oriented X 3. Significantly weaker on the right side with slurred speech. No sensory deficit. Medical Decision Making Medical Decision Making MDM Narrative: Patient's presents today with having abdominal pain for the last 4 days. Some nausea vomiting diarrhea. Patient's urine showed no evidence of infection. I reviewed radiology's reading of the CT scan abdomen pelvis. There is no overt obstruction there is nonspecific colitis noted. There is also a small mass noted in the left kidney. This finding was explained to senior living. Patient will need follow-up on an outpatient basis. Currently in stable condition. Differential Diagnosis Differential Diagnoses: The differential diagnosis associated with the presentation includes Obstruction, abscess, perforation, urinary tract infection Admission/Observation Consideration of admission/observation: Escalation of care including admission/observation considered Lab Data MDM Lab Attestation statement: I reviewed the patient's lab results. 10/26/24 14:12 10/26/24 14:12 Labs: Lab Results 10/26/24 Range/Units 14:12 WBC 9.6 (4.8-10.8) X10*3/uL RBC 4.37 L (4.60-5.80) X10*6/uL Hgb 12.9 L (14.0-18.0) g/dl Hct 38.9 L (42.0-52.0) % MCV 89.0 (80.0-98.0) fL MCH 29.5 (27.0-33.0) pg MCHC 33.2 (31.0-36.0) g/dl RDW 12.9 (11.0-16.0) % Plt Count 223 (160-400) X10*3/uL MPV 10.9 (9.4-12.4) fL Immature Gran % (Auto) 0.3 (0.0-0.4) % Neut % (Auto) 53.9 (45-73) % Lymph % (Auto) 35.5 (20-40) % Wheeler % (Auto) 7.5 (2-11) % Eos % (Auto) 2.4 (0-4) % Baso % (Auto) 0.4 (0-2) % Lymph # (Auto) 3.4 (1.2-4.9) X10*3/uL Wheeler # (Auto) 0.7 (0.1-1.2) X10*3/uL Eos # (Auto) 0.2 (0.0-0.4) X10*3/uL Baso # (Auto) 0.0 (0.0-0.2) X10*3/uL Abs Immat Gran (auto) 0.03 (0.00-0.03) X10*3/uL Absolute Neuts (auto) 5.1 (2.0-8.3) x10*3/uL Absolute Nucleated RBC 0.000 (0.0-0.012) X10*3/uL Nucleated RBC % (auto) 0.0 (0.0-0.2) /100WBC Sodium 143 (135-145) mmol/L Potassium 4.6 (3.3-5.1) mmol/L Chloride 116 H (96-108) mmol/L Carbon Dioxide 23 (22-29) mmol/L Anion Gap 9 L (12-20) BUN 21 H (9-16) mg/dL Creatinine 2.07 H (0.5-1.4) mg/dL Estim Creat Clear Calc 35.7 Estimated GFR 33 Random Glucose 98 (60-115) mg/dL Calcium 9.3 (8.4-10.2) mg/dL Total Bilirubin 0.3 (0.0-1.0) mg/dL AST 17 (5-37) U/L ALT 10 (0-40) U/L Alkaline Phosphatase 72 (39-117) U/L Total Protein 7.6 (6.5-8.0) g/dL Albumin 4.2 (3.5-5.0) g/dL Lipase 31 (8-78) U/L Urine Color Yellow Urine Appearance Clear Urine pH 5.5 (5.0-9.0) Ur Specific [place] 1.020 (1.005-1.025) Urine Protein 100 (2+) H (Neg-Trace) mg/dL Urine Glucose (UA) >=1000 H (Negative) mg/dL Urine Ketones Negative (Negative) mg/dL Urine Blood Negative (Negative) Urine Nitrite Negative (Negative) Ur Leukocyte Esterase Negative (Negative) Urine RBC 0-2 (0-2) /HPF Urine WBC 0-5 (0-5) /HPF Ur Squamous Epith Cells 0-2 (0-2) /HPF Urine Bacteria None Seen (None Seen) Hyaline Casts 0-2 (0-2) /LPF Influenza Type A (PCR) NEGATIVE (Negative) Influenza Type B (PCR) NEGATIVE (Negative) RSV RNA Qual (PCR) NEGATIVE (Negative) SARS-CoV-2 RNA (RT-PCR) NEGATIVE (Negative) Radiology Impression Discussion of test interpretation with radiology: I have reviewed the radiologist's reading. Independent Historian skilled nursing staff External Record Review External record reviewed: Outpatient record Chronic Conditions Patient?s care impacted by: Diabetes and Hypertension CVA Social Determinants Patient?s care significantly limited by Social Determinants of Health including: Inadequate housing and Problems related to primary support group Medications Administered Discontinued Medications Generic Name Dose Route Start Last Admin Trade Name Freq PRN Reason Stop Dose Admin Diatrizoate Meglum/Diatrizoate Sod 30 ml 10/26/24 19:14 10/26/24 19:14 Diatrizoate Meglumine, Sodium 30 Ml Solution PO 10/26/24 19:15 30 ml ONCE ONE Administration Sodium Chloride 1,000 mls @ 999 mls/hr 10/26/24 17:15 10/26/24 17:50 Ns IV 10/26/24 18:15 999 mls/hr .Q1H1M CHELSIE Administration Iohexol 100 ml 10/26/24 19:09 10/26/24 19:09 Iohexol 350 Mg/Ml 100 Ml Infus..Btl IV 10/26/24 19:10 85 ml ONCE ONE Administration Ondansetron HCl 4 mg 10/26/24 17:07 10/26/24 17:50 Ondansetron Hcl 4 Mg/2 Ml Vial IVPUSH 10/26/24 17:08 4 mg ONCE ONE Administration Discharge Plan Discharge Patient Disposition: Home, Self-Care Instructions: Colitis (ED) Additional Instructions: Indeterminate 1.5 cm lesion of the left kidney. Recommend six-month follow-up or nonemergent characterization with renal mass imaging. A mass was noted in your left kidney. Outpatient workup recommended. Prescriptions: No Action hydralazine 50 mg tablet 50 mg PO TID 90 Days Qty: 270 2RF Protocol: Hold for SBP< HOLD for SBP < : 110 (DME) lancets [Easy Touch Safety Lancets] 26 gauge misc See Rx Instructions .ROUTE .COMPLEX Qty: 100 11RF Dose Instruction: USE 2-3 TIMES A DAY DIRECTED FOR BLOOD GLUCOSE MONITORING Rx Instructions: USE 2-3 TIMES A DAY DIRECTED FOR BLOOD GLUCOSE MONITORING dextrose [Dex4 Glucose] 15 gram/33 gram gel in packet See Rx Instructions PO .COMPLEX Qty: 198 4RF Rx Instructions: 15 gm pRN hypoglycemia (DME) FreeStyle Lite Strips Strip See Rx Instructions .ROUTE .COMPLEX Qty: 100 11RF Dose Instruction: USE TO TEST BLOOD SUGAR FOUR TIMES A DAY Rx Instructions: USE TO TEST BLOOD SUGAR FOUR TIMES A DAY pen needle, diabetic [Easy Touch] 31 gauge x 5/16 needle 1 ea miscellaneous TID 28 Days Qty: 84 11RF Eliquis 5 mg tablet 5 mg PO BID Qty: 56 11RF Rx Instructions: Report any excessive bleeding Jardiance 10 mg tablet 10 mg PO QAM Qty: 28 6RF metoprolol succinate 25 mg tablet extended release 24 hr 25 mg PO BEDTIME 28 Days Qty: 28 11RF Rx Instructions: Do not crush/chew sennosides [senna] 8.6 mg tablet 8.6 mg PO BID Qty: 56 11RF polyethylene glycol 3350 17 gram/dose powder 17 g PO BID Qty: 1020 8RF ursodiol 300 mg capsule 300 mg PO BID Qty: 56 11RF aspirin 81 mg tablet,delayed release (DR/EC) 81 mg PO QAM 90 Days Qty: 90 1RF Rx Instructions: Do not crush/chew Tresiba FlexTouch U-200 200 unit/mL (3 mL) insulin pen 46 unit subcut DAILY 30 Days Qty: 6.9 5RF Rx Instructions: Report any blood sugars <70 acetaminophen [Tylenol] 325 mg tablet 650 mg PO Q6H PRN (Reason: temp, headache or general discomfort) 30 Days Qty: 120 3RF Rx Instructions: Take two 325mg tabs every 6 hours as needed for fever over 101, headache, or general discomfort. Contact PCP if symptoms persist greater than 24 hours. ascorbic acid (vitamin C) 500 mg tablet 500 mg PO BID 90 Days Qty: 180 0RF Multi-Vitamin HP/Minerals Capsule 1 cap PO DAILY Qty: 90 1RF Rx Instructions: take for supplement daily with food nifedipine [Procardia XL] 30 mg tablet extended release 24hr 30 mg PO DAILY 30 Days Qty: 30 3RF Trulicity 3 mg/0.5 mL pen injector 3 mg subcut QWEEK Qty: 2 4RF losartan 50 mg tablet 50 mg PO BID Qty: 45 0RF cholecalciferol (vitamin D3) 25 mcg (1,000 unit) tablet 25 mcg PO DAILY 90 Days Qty: 90 4RF albuterol sulfate 90 mcg/actuation HFA aerosol inhaler 2 puff inhalation Q6H MDD 8 PRN (Reason: shortness of breath or wheezing) Qty: 8.5 0RF (DME) miscellaneous medical supply Misc See Rx Instructions .ROUTE .MEDSUPPLY Qty: 1 0RF Rx Instructions: R AFO, Daily As directed, 999 days. Disp #1 lorazepam [Ativan] 0.5 mg tablet 0.5 mg PO DAILY PRN (Reason: Anxiety) miscellaneous medical supply Misc See Rx Instructions miscellaneous .COMPLEX Qty: 1 1RF Rx Instructions: Right lateral sole wedge as directed; atorvastatin 80 mg tablet 80 mg PO BEDTIME 90 Days Qty: 90 1RF Rx Instructions: replaces simvastatin 40 mg qhs hydrocortisone 1 % cream 1 appl topical TID PRN (Reason: skin irritation) Qty: 28.35 0RF (DME) blood-glucose meter [FreeStyle Lite Meter] Kit See Rx Instructions .Route Rx Instructions: As directed trazodone 100 mg tablet 200 mg PO BEDTIME lactulose [Enulose] 10 gram/15 mL solution 30 ml PO .q72 h PRN (Reason: constipation) Qty: 473 3RF Rx Instructions: Take every 3 days or every 72 hours as needed. If no effect after 24 hours from dose, contact PCP glucose 5 % solution 15 g PO Q15M PRN (Reason: hypoglycemia) Rexulti 0.5 mg tablet 0.5 mg PO DAILY Rexulti 1 mg tablet 1 mg PO BEDTIME fluoxetine [Prozac] 40 mg capsule 40 mg PO DAILY Rexulti 1 mg tablet 1 mg PO BEDTIME tamsulosin [Flomax] 0.4 mg capsule 0.4 mg PO BEDTIME atorvastatin [Lipitor] 80 mg tablet 80 mg PO BEDTIME Referrals: Nikki Naik, SENIOR QA TESTER [Primary Care Provider] - (A mass was found in your left kidney. Outpatient workup needed. Risk of malignancy exists) Print Language: Kyrgyz
[2024-10-26] MEDS: 0.9 % Sodium Chloride 1,000 ML 999 ML IV (17:50)
[2024-10-26] MEDS: ondansetron HCL 4 MG/2 ML VIAL IVPUSH (17:50)
[2024-10-26 18:32] VITALS: BP 138/65; PULSE 63; RESP 16; TEMP 36.8; O2SAT 96
[2024-10-26] MEDS: iohexoL 350 MG/ML 100 ML INFUS..BTL IV (19:09)
--- OUTSIDE RECORDS SUMMARY | 2024-10-26 19:09 | XMS_ITS | Clinical Summary ---
Author Organization [facility] Address [address] [place] [address] Phone Care Team Providers Care Robotics Application Engineer Name Role Phone Nikki Naik DIRECTOR PUBLIC POLICY Primary Care Provider [phone] Allergies No known active allergies Medications Medication Sig Dispensed Refills Start Date End Date Status ketoconazole (NIZORAL) 2 % cream Apply topically 1 (one) time each day. Apply topical in the morning time to the bottoms of the feet bilaterally 60 g 2 09/26/2024 Active Encounters Date Type Department Care Team Description 09/26/2024 11:30 AM EST Consult Orthopedic Surgery [address] [address] Mao Evans DPM Controlled type 2 diabetes with neuropathy (CMS/HCC) (Primary Dx); Arthritis of both feet; Hammertoes of both feet; Tinea pedis of both feet; Dermatophytosis, nail from Last 3 Months Social History Tobacco Use Types Packs/Day Years Used Date Smoking Tobacco: Never Assessed Sex and Gender Information Value Date Recorded Sex Assigned at Not on file Gender Identity Not on file Sexual Orientation Not on file Last Filed Vital Signs Vital Sign Reading Time Taken Comments Blood Pressure - - Pulse - - Temperature - - Respiratory Rate - - Oxygen Saturation - - Inhaled Oxygen Concentration - - Weight 79.4 kg (175 lb) 09/26/2024 11:55 AM EST Height 172.7 cm (5' 8 ) 09/26/2024 11:55 AM EST Body Mass Index 26.61 09/26/2024 11:55 AM EST Plan of Treatment Upcoming Encounters Date Type Department Care Team ([facility] Contact Info) Description 11/28/2024 11:00 AM EST Office Visit Orthopedic [place] [id number] [phone] Mao Evans DPM [address] [id number] Health Maintenance Due Date Last Done Comments Diabetes: Annual GFR (Glomerular Filtration Rate) 1962 Diabetes: Annual Foot Exam 1972 Diabetes: Annual Retina Eye Exam 1972 Zoster Vaccines (1 of 2) 2012 Pneumococcal Vaccine: Pediatrics (0 to 5 Years) and At-Risk Patients (6 to 64 Years) (2 of 2 - PCV) 12/10/2020 12/11/2019 RSV Immunization Patients 60 + Years Old (1 - Risk 60-74 years 1-dose series) 2022 COVID-19 Vaccine (3 - 2023-2 5 season) 2024 09/17/2022, 11/17/2021 Influenza Vaccine (#1) 2024 , 09/17/2022, 12/26/2019 Cholesterol Screening (Lipid Panel) 09/14/2024 Colorectal Cancer Screening: Colonoscopy 09/14/2024 Depression Screening 09/14/2024 Diabetes: Annual Urine Albumin-Creatinine Ratio (uACR) 09/14/2024 Diabetes: Blood Sugar Contro l Test (HGBA1C) 09/14/2024 HIV Screening 09/14/2024 Hepatitis C Screening 09/14/2024 Social Influencers of Health Screening 09/14/2024 Hypertension/CHF/CAD Annual BMP Blood Test 09/26/2024 DTaP,Tdap,and Td Vaccines (2 - Td or Tdap) 12/10/2029 12/11/2019 HIB Vaccines Aged Out No longer eligi ble based on patient's age to complete this topic HPV Vaccines Aged Out No longer eligi ble based on patient's age to complete this topic Hepatitis A Vaccines Aged Out No long er eligible based on patient's age to complete this topic Hepatitis B Vaccines Aged Out No long er eligible based on patient's age to complete this topic IPV Vaccines Aged Out No longer eligi ble based on patient's age to complete this topic MMR Vaccines Aged Out No longer eligi ble based on patient's age to complete this topic Meningococcal ACWY Vaccine Aged Out N o longer eligible based on patient's age to complete this topic RSV Immunization Patients Under 20 months Aged Out No longer eligible b ased on patient's age to complete this topic Varicella Vaccines Aged Out No longer eligible based on patient's age to complete this topic Care Teams Robotics Application Engineer Relationship Specialty Start Date End Date Nikki Naik FNP [address] [place] [address] PCP - General Family Medicine 09/14/24
--- OUTSIDE RECORDS SUMMARY | 2024-10-26 19:10 | XMS_ITS | Encounter Summary ---
Author Organization [facility] Address [address] [facility] [address] [place] [address] Phone Care Team Providers Care Chute Loader Name Role Phone Brit Smallwood [place] Primary Care Provider [phone] Reason for Visit * Reason Comments Med Refill Encounter Details Date Type Department Care Team (Late st Contact Info) Description 12/02/2023 Refill [facility] [address] [facility] [address] [place] [phone] Antonio Carter MD [address] [facility] [address] [place] [id number] Social History Tobacco Use Types Packs/Day Years Used Date Smoking Tobacco: Never Smokeless Tobacco: Never Alcohol Use Standard Drinks/Week Comments No 0 (1 standard drink = 0.6 oz pur e alcohol) Sex and Gender Information Value Date Recorded Sex Assigned at Not on file Legal Sex Male 4:45 PM EST Gender Identity Not on file Sexual Orientation Not on file documented as of this encounter Miscellaneous Notes * Telephone Encounter - Danni Miles - 12/06/2023 1:27 PM EST With the assistance of Radha speaking Maltese a call was placed to the patient regarding a medication refill request. The patients clean out driller was informed that in order to refill medications the patient needs a follow up visit. The patient states he will decide if he would like to continue at [facility] or follow his previous [facility]. He will contact the office with his decision. A 30 day refillis available to the patient. documented in this encounter Plan of Treatment Not on file documented as of this encounter Visit Diagnoses Not on filedocumented in this encounter Care Teams Chute Loader Relationship Specialty Start Date End Date Brit Smallwood NP [address] [place] [id number] PCP - General Nurse Practitioner 02/13/21 documented as of this encounter
--- OUTSIDE RECORDS SUMMARY | 2024-10-26 19:10 | XMS_ITS | Encounter Summary ---
Author Organization [facility] Address [address] [facility] [address] [place] [address] Phone Care Team Providers Care Executive Legal Secretary Name Role Phone Brit Smallwood STORE PROTECTION SPECIALIST Primary Care Provider [phone] Reason for Visit * Reason Comments Med Refill Encounter Details Date Type Department Care Team (Late st Contact Info) Description 12/09/2023 Refill [facility] [address] [facility] [address] [place] [phone] Antonio Carter MD [address] [facility] [address] [place] [phone] Social History Tobacco Use Types Packs/Day Years [...] on file documented as of this encounter Plan of Treatment Not on file documented as of this encounter Visit Diagnoses Not on filedocumented in this encounter Care Teams Executive Legal Secretary Relationship Specialty Start Date End Date Brit Smallwood NP [address] [place] [phone] PCP - General Nurse Practitioner 02/13/21 documented as of this encounter
--- OUTSIDE RECORDS SUMMARY | 2024-10-26 19:10 | XMS_ITS | Clinical Summary ---
Author Organization [facility] Address [address] [place] [address] [place] [address] Phone Care Team Providers Care Sample Taker Operator Name Role Phone Brit Smallwood NP Primary Care Provider [phone] Allergies Active Allergy Reactions Criticality Noted Date Comments Amlodipine Other (see comments) 11/20/2020 Medications * This document contains information received from the source organization and may not represent a complete record from that organization. acetaminophen (TYLENOL) 325 MG tablet Take 2 tablets by mouth 1 (one) time each day Active ascorbic acid (VITAMIN C) 500 MG CR capsule Take 1 capsule by mouth 2 (two) times a day Active aspirin (ST KAILEY) 81 MG EC tablet Take 1 tablet by mouth 1 (one) time each day Active Dulaglutide (Trulicity) 1.5 MG/0.5ML solution pen-injector Inject 0.5 mL under the skin 1 (one) time per week Active Empagliflozin (Jardiance) 10 MG tablet Comments: Patient Notes: Please specify directions, refills and quantity Active guaiFENesin (ROBITUSSIN) 100 MG/5ML syrup Active hydrocortisone 0.5 % cream Active insulin detemir (Levemir FlexTouch) 100 UNIT/ML injection Active lactulose (CEPHULAC) 10 g packet Take 3 packets by mouth 1 (one) time each day Active LORazepam (ATIVAN) 0.5 MG tablet Take 1 tablet by mouth 3 (three) times a day Active losartan (COZAAR) 50 MG tablet Take 1 tablet by mouth 1 (one) time each day Active meclizine (ANTIVERT) 25 MG tablet Take 1 tablet by mouth 3 (three) times a day if needed Active metoprolol tartrate (LOPRESSOR) 25 MG tablet Take 1 tablet by mouth 2 (two) times a day Active mirtazapine (REMERON) 7.5 MG tablet Take 1 tablet by mouth 1 (one) time each day Active NIFEdipine CC (ADALAT CC) 30 MG 24 hr tablet Comments: Filled Date: Jul 11 2020 1:43PM Patient Notes: TAKE 1 TABLET BY MOUTH EVERY DAY Duration: 90 07/11/2020 Active omeprazole (PriLOSEC) [address] capsule Take 1 capsule by mouth 1 (one) time each day Active polyethylene glycol (GLYCOLAX) 17 GM/SCOOP powder Take 1 Scoop by mouth 1 (one) time each day Active risperiDONE (RisperDAL) 0.5 MG tablet Take 1 tablet by mouth at bed time Active senna (SENOKOT) 8.6 MG tablet Take 1 tablet by mouth 2 (two) times a day Active simvastatin (ZOCOR) 40 MG tablet Take 1 tablet by mouth 1 (one) time each day Active traZODone (DESYREL) 50 MG tablet Take 1 tablet by mouth 1 (one) time each day Active ursodiol (ACTIGALL) 300 MG capsule Take 1 capsule by mouth 2 (two) times a day Active sucralfate (CARAFATE) 1 g tablet Take 1 g by mouth 4 (four) times a day Active apixaban (ELIQUIS) 5 MG tablet Take 5 mg by mouth in the morning and 5 mg in the evening. Active hydrALAZINE 50 MG tablet Take 1 tablet (50 mg total) by mouth in the morning and 1 tablet (50 mg total) in the evening and 1 tablet (50 mg total) before bedtime. 270 tablet 3 12/17/2023 12/17/19 25 Active Active Problems Problem Noted Date Diagnosed Date Acute nontraumatic kidney injury 11/20/2020 Anemia of chronic renal failure 11/20/2020 Essential hypertension 11/20/2020 Hypertensive renal disease 11/20/2020 Resolved Problems Problem Noted Date Diagnosed Date Resolved Date Chronic kidney disease stage 3 11/20/2020 02/13/2021 Social History Tobacco Use Types Packs/Day Years Used Date Smoking Tobacco: Never Smokeless Tobacco: Never Tobacco Cessation:Counseling Given: Not Answered Alcohol Use Standard Drinks/Week Comments No 0 (1 standard drink = 0.6 oz pur e alcohol) Sex and Gender Information Value Date Recorded Sex Assigned at Not on file Legal Sex Male 4:45 PM EST Gender Identity Not on file Sexual Orientation Not on file Last Filed Vital Signs Vital Sign Reading Time Taken Comments Blood Pressure 128/65 04/26/2023 1:17 PM EDT Pulse 78 04/26/2023 1:17 PM EDT Temperature - - Respiratory Rate - - Oxygen Saturation 98% 04/26/2023 1:17 PM EDT Inhaled Oxygen Concentration - - Weight 83.6 kg (184 lb 3.2 oz) 04/26/2023 1:17 P M EDT Height 167.6 cm (5' 6 ) 05/23/2020 12:00 PM EDT Body Mass Index 29.73 05/23/2020 12:00 PM EDT Plan of Treatment Health Maintenance Due Date Last Done Comments Pneumococcal Vaccine: Pediat rics (0 to 5 Years) and At-Risk Patients (6 to 64 Years) (1 of 2 - PCV) 1968 Colorectal Cancer Screening: Annual FOBT 2011 Colorectal Cancer Screening: Colonoscopy 2011 Colorectal Cancer Screening: Sigmoidoscopy 2011 Influenza Vaccine (#1) 2024 Hepatitis B Vaccine Aged Out No longe r eligible based on patient's age to complete this topic Insurance MEDICAID MEDICAID Care Teams Sample Taker Operator Relationship Specialty Start Date End Date Brit Smallwood NP [address] [place] [id number] PCP - General Nurse Practitioner 02/13/21
--- OUTSIDE RECORDS SUMMARY | 2024-10-26 19:10 | XMS_ITS | Encounter Summary ---
Author Organization [facility] Address [address] [place] [address] Care Team Providers Care Front End Wheel Loader Operator Name Role Phone Nikki Naik MALOU Primary Care Provider [phone] Reason for Visit * Reason Comments DM Foot Care YPE 2 DIABETIC FOOT CARE A1C 6.6 08/28/24 Encounter Details Date Type Department Care Team (Late st Contact Info) Description 09/26/2024 11:30 AM EST Consult Orthopedic Surgery - [place] [id number] [phone] Mao Evans DPM [address] [id number] Controlled type 2 diabetes with neuropathy (CMS/HCC) (Primary Dx); Arthritis of both feet; Hammertoes of both feet; Tinea pedis of both feet; Dermatophytosis, nail Social History Tobacco Use Types Packs/Day Years Used Date Smoking Tobacco: Never Assessed Sex and Gender Information Value Date Recorded Sex Assigned at Not on file Gender Identity Not on file Sexual Orientation Not on file documented as of this encounter Last Filed Vital Signs Vital Sign Reading Time Taken Comments Blood Pressure - - Pulse - - Temperature - - Respiratory Rate - - Oxygen Saturation - - Inhaled Oxygen Concentration - - Weight 79.4 kg (175 lb) 09/26/2024 11:55 AM EST Height 172.7 cm (5' 8 ) 09/26/2024 11:55 AM EST Body Mass Index 26.61 09/26/2024 11:55 AM EST documented in this encounter Ordered Prescriptions Prescription Sig Dispensed Refills Start Date End Da te ketoconazole (NIZORAL) 2 % cream Apply topically 1 (one) time each day. Apply topical in the morning time to the bottoms of the feet bilaterally 60 g 2 09/26/2024 documented in this encounter Progress Notes * Mao Evans DPM - 09/26/2024 11:30 AM EST Referring MD: milton Last PCP visit: 09/14/2024 IDENTIFIER: @TITLE@ Kristina Weaver is a 64 y.o. year old male who presents for consultation. CC: Pain in feet HPI: Patient presents to office today for initial diabetic foot evaluation as recommended by their primary care physician. Patient states that they have been diabetic for the past few years and have some tingling numbness of the feet bilaterally. Denies any history of ulceration, or infection. Patient would like to inquire about their pedal hygiene, as their toenails have become elongated and painful. Patient is not using antifungals at this time. Patient notes he has some scaliness with foul odor to the plantar aspect of the feet bilaterally Patient reports mild calluses that are becoming bothersome. Patient with minimal other pedal complaints at this time. Patient's FBS this AM was 115 Recent A1C is %. 6.6 ROS: GENERAL: Pt denies nausea, fever, vomiting, chills, or shortness of breath. Pt in NAD. CARDIOLOGY: pt denies chest pain, palpitations LUNGS: pt denies shortness of breath MUSCULOSKELETAL: See HPI, otherwise no joint pain or swelling, back pain, or muscle pain. SKIN: see HPI, otherwise no lesions, rash or itching NEURO: No persistent headache, weakness or numbness The remainder of the review of systems is noncontributory PAST MEDICAL HISTORY: There is no problem list on file for this patient. SOCIAL HISTORY: Social History Tobacco Use Smoking status: Not on file Smokeless tobacco: Not on file Substance Use Topics Alcohol use: Not on file ACTIVE MEDICATIONS: No outpatient medications have been marked as taking for the 09/26/24 encounter (Consult) with Sveta Evans DPM. ALLERGIES: @ALL@ PHYSICAL EXAM: Height 1.727 m (68 ), weight 79.4 kg (175 lb). PODIATRIC EXAMINATION: GENERAL: Patient appears well nourished, with NAD. VASCULAR: Dorsalis pedis pulses are 2/4 bilaterally and Posterior tibial pulses are 2/4 bilaterally. Capillary filling time within normal limits the digits. No pallor on elevation or rubor on dependency. Positive hair growth. No varicosities. Denies rest pain or claudication pain. NEUROLOGICAL: Sharp/dull sensation intact, protective sensation diminished on [place]. Multiple peripheral neuropathies bilaterally. ORTHOPEDIC: Good muscle strength 5/5 of all flexors and extensors. Dorsi flexion of ankle ,10 degrees, plantar flexion WNL. No muscle atrophy. Rigid contractures of digits 2 through 5. Increased pressure to the metatarsal heads of each feet bilaterally. Arthritic changes to the midfoot bilaterally. DERMATOLOGICAL:.Annular scaling to the plantar aspect of the feet with moccasin distribution bilaterally. Nails are elongated dystrophic discolored x 10 with subungual debris BIOMECHANICS: STJ ROM wnl, MTJ ROM wnl, 1st MPJ ROM wnl. IMPRESSION: 1. Controlled type 2 diabetes with neuropathy (CMS/HCC) 2. Arthritis of both feet 3. Hammertoes of both feet 4. Tinea pedis of both feet 5. Dermatophytosis, nail PLAN: Pt was seen and examined, history reviewed. Patient educated on the importance of good pedal hygiene and tight blood glucose control. Patient encouraged to maintain a healthy lifestyle with a well-balanced diet. Patient should never go barefoot and wear supportive shoe gear. Patient should aim for A1c less than 7% every month. Continue with regular appointments with PMD or butcher meat for tight medical management Patient with symptoms of arthritic pain in the pedal joints. Patient showed good understanding of etiology of arthritis. Patient is aware that conservative options include padding, over the counter products, orthotics, and shoes. Patient aware that they are other treatments available such as oral anti- inflammatories, injections, and steroid dose packs. Patient understands that these measures are conservative measures to help handle the osteoarthritic flares. Patient found to have contracted and hammered digits of bilateral forefoot. Due to patients currentage and activity level, will continue with conservative management of these deformities. There are devices that will help reduce chance of irritation, pressure points, blisters, and/or infection. Patient found to have tinea pedis infection of bilateral lower extremity, noted in classic moccassin distribution. Patient reports OTC lotions not working properly and it not resolving quickly. Patient would benefit from topical antifungal medication. RX ketoconazole 2% cream. Patient to apply twice daily the first week, and once a day the second week. Nail debridement performed to nails 1-5 bilateral as nails were described to be causing pain and difficulty for walking while in shoegear at their previous length. They were debrided in thickness andlength, with no incident. Clinical evidence of mycosis is documented which required active treatment. Patient expressed immediate relief. Patient is to RTC in 9 weeks Mao Evans DPM documented in this encounter Plan of Treatment Upcoming Encounters Date Type Department Care Team (Late st Contact Info) Description 11/28/2024 11:00 AM EST Office Visit Orthopedic Surgery - [place] [address] [phone] Mao Evans DPM [address] [phone] documented as of this encounter Visit Diagnoses Diagnosis Controlled type 2 diabetes with neuropathy (CMS/HCC)- Primary Type II or unspecified type diabetes mellitus with neurological manifestations, not stated as uncontrolled Arthritis of both feet Hammertoes of both feet Tinea pedis of both feet Dermatophytosis, nail Dermatophytosis of nail documented in this encounter Care Teams Front End Wheel Loader Operator Relationship Specialty Start Date End Date Nikki Naik FNP [address] [place] [address] PCP - General Family Medicine 09/14/24 documented as of this encounter
[2024-10-26] MEDS: Diatrizoate Meglumine, Sodium 30 ML SOLUTION PO (19:14)
[2024-10-26 20:50] VITALS: BP 128/66; PULSE 72; RESP 16; TEMP 36.7; O2SAT 97
== END 2024-10-26 21:00 | disposition home or self-care (01) ==
PROVIDERS: Physician Assistant; Emergency Provider Emergency Medicine Emergency Medical Services; PCP Nurse Practitioner Family
DX: K52.9 Noninfective gastroenteritis and colitis, unspecified (principal); R10.9 Unspecified abdominal pain; R11.2 Nausea with vomiting, unspecified; E11.22 Type 2 diabetes mellitus with diabetic chronic kidney disease; I12.9 Hypertensive chronic kidney disease with stage 1 through stage 4 chronic kidney disease, or unspecified chronic kidney disease; N18.30 Chronic kidney disease, stage 3 unspecified; Z79.899 Other long term (current) drug therapy; Z03.818 Encounter for observation for suspected exposure to other biological agents ruled out
CPT/HCPCS: 0241U; 74177; 80053; 81001; 83690; 85025; 96361; 96374; 99284; 99285; J2405; Q9967

== ENCOUNTER → 2024-10-26 17:07 | Outpatient (BNV) | payer OTHER, SELFPAY | PROVIDERS: Emergency Provider Emergency Medicine Emergency Medical Services; PCP Nurse Practitioner Family; Visit Provider Radiology Neuroradiology | DX: K80.20 Calculus of gallbladder without cholecystitis without obstruction (principal); N32.89 Other specified disorders of bladder | CPT/HCPCS: 74177 ==

== ENCOUNTER 2024-11-13 12:28 | Outpatient (AMB) | payer OTHER, SELFPAY ==
--- NOTE | 2024-11-13 12:31 | MHC.PC.OV ---
Vital Signs 11/13/24 12:38 11/13/24 12:57 Height 5 ft 8 in Weight 166 lb 4 oz BMI 25.3 BP 150/70 H 130/70 Blood Pressure Location Rt brachial Lt brachial Position Sitting Sitting Respiration 16 Pulse 62 Pulse Source Pulse Oximeter Temp 97.7 F Temp Source Oral Pulse Oximetry (%) 97 Oxygen Delivery Method Room Air Intake Visit Reasons: ER F/U Intake Note: patient here for ER follow up Practice Advisor Required: Yes Practice Advisor Language: Jewelry Sales Name: refused worker with him Accompanied by: Unknown Allergies amlodipine [From NORVAS] Allergy (Severe, Verified 11/13/24 12:45) due to poor renal function ibuprofen Allergy (Severe, Verified 11/13/24 12:45) 2/2 renal function Medication List - Last Reconciled 11/13/24 by Nikki Naik CNP acetaminophen (Tylenol) 650 mg (2 x 325 mg) PO Q6H PRN 30 days albuterol sulfate 90 mcg/actuation 2 puffs inhalation Q6H PRN MDD 8 apixaban (Eliquis) 5 mg PO BID ascorbic acid (vitamin C) 500 mg PO BID 3 months aspirin 81 mg PO QAM 90 days atorvastatin (Lipitor) 80 mg PO BEDTIME atorvastatin 80 mg PO BEDTIME 90 days blood sugar diagnostic (FreeStyle Lite Strips) USE TO TEST BLOOD SUGAR FOUR TIMES A DAY blood-glucose meter (FreeStyle Lite Meter kit) As directed brexpiprazole (Rexulti) 1 mg PO BEDTIME brexpiprazole (Rexulti) 1 mg PO BEDTIME brexpiprazole (Rexulti) 0.5 mg PO DAILY cholecalciferol (vitamin D3) 25 mcg PO DAILY 90 days dextrose (Dex4 Glucose) 15 gm pRN hypoglycemia dulaglutide (Trulicity) 3 mg (0.5 mL) subcut QWEEK empagliflozin (Jardiance) 10 mg PO QAM fluoxetine (Prozac) 40 mg PO DAILY glucose 15 grams PO Q15M PRN hydralazine 50 mg See Protocol PO TID 90 days hydrocortisone 1% 1 appl topical TID PRN insulin degludec (Tresiba FlexTouch U-200 insulin) 46 units (0.23 mL) subcut DAILY 30 days lactulose (Enulose) 30 mL PO .q72 h PRN lancets (Easy Touch Safety Lancets) USE 2-3 TIMES A DAY DIRECTED FOR BLOOD GLUCOSE MONITORING lorazepam (Ativan) 0.5 mg PO DAILY PRN losartan 75 mg (1.5 x 50 mg) PO BID metoprolol succinate ER 25 mg PO BEDTIME 28 days miscellaneous medical supply R AFO, Daily As directed, 999 days. Disp #1 miscellaneous medical supply Right lateral sole wedge as directed; multivitamin,tx-minerals (Multi-Vitamin HP/Minerals capsule) 1 cap PO DAILY nifedipine ER (Procardia XL) 30 mg PO DAILY 30 days pen needle, diabetic (Easy Touch) 1 ea miscellaneous TID 28 days polyethylene glycol 3350 17 grams PO BID sennosides (senna) 8.6 mg PO BID tamsulosin (Flomax) 0.4 mg PO BEDTIME 90 days trazodone 200 mg PO BEDTIME ursodiol 300 mg PO BID Tobacco use date assessed: 11/13/24 Dental Screening Dental Screen Date: 11/13/24 Did you have a dental visit in the last 12 months?: Yes Did you have a dental problem in the last 6 months where you did not have access to dental care?: No Was dental information given to patient?: Patient has dentist HPI HPI Comments History of Present Illness Details 64-year-old Pashto-speaking male from [facility] presents for hospital discharge follow-up. He is accompanied by [facility] staff. He was evaluated at [facility] on 10/26/2024 MDM Narrative: Patient's presents today with having abdominal pain for the last 4 days. Some nausea vomiting diarrhea. Patient's urine showed no evidence of infection. I reviewed radiology's reading of the CT scan abdomen pelvis. There is no overt obstruction there is nonspecific colitis noted. There is also a small mass noted in the left kidney. This finding was explained to [facility]. Patient will need follow-up on an outpatient basis. Currently in stable condition. 10/26/24 CT abdomen/pelvis Indeterminate 1.5 cm lesion of the left kidney. Recommend six-month follow-up or nonemergent characterization with renal mass imaging. Was also evaluated at [facility] on 10/12/2024 for left-sided chest pain. Negative troponin, unremarkable labs, EKG, and chest x-ray. He is followed by [facility] for CKD and has an appointment scheduled for 01/25/2025. He offers no complaints and denies acute symptoms at this time. Interpretation by [facility] staff per patient's preference. [facility] Medical History Skin lesion Squamous cell carcinoma of skin Encephalopathy Cerebrovascular accident Hypoglycemia unawareness associated with type 2 diabetes mellitus Diabetes type 2, uncontrolled Type 2 diabetes mellitus with diabetic polyneuropathy Essential hypertension Epigastric pain Skin cancer Postoperative bleeding from incision Skin lesion Stroke Type 2 diabetes mellitus with chronic kidney disease Chronic kidney disease, stage 3 Aphagia Unsteady gait Anemia Hypertensive chronic kidney disease with stage 1 through stage 4 chronic kidney disease, or unspecified chronic kidney disease CKD (chronic kidney disease) Hearing loss Preglaucoma Vascular device, implant, or graft complication Bronchitis HTN (hypertension) Hyperlipidemia Hyperlipidemia Vitamin D deficiency Vitamin D deficiency Constipation GERD (gastroesophageal reflux disease) Diabetes Hemiplegia Surgical History History of removal of cyst (~02/09/22) Hx of cataract surgery History of surgical removal of skin lesion History of exploratory laparotomy Family History Father Myocardial infarction Mother Throat cancer Diabetes Family/Other FH: mental illness Brother In good health Sister In good health Sister In good health Daughter In good health Social History 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 Household Members Other:: [facility] Housing: House Do you presently have visiting nurse or other home services: Yes Alcohol intake: current Alcohol intake frequency: holidays/special occasions only Patient Tobacco Use Status: Former Tobacco user Tobacco use type: Cigarette Cigarette Packs Per Day: 2 Cigarettes Per Day: 40.0 Years Smoked: 16 Packs Per Year: 32 Packs per year/per ci.00 e-Cigarette/Vaping Use: Never Used Second Hand Smoke Exposure: No Substance Use Type: Marijuana Advance Directives Date on File: 07/04/24 service: No Current occupational status: disabled Current occupational exposures/hazards: No Cognitive needs: Yes (walker) Hearing needs: No Vision needs: No Questionnaire PHQ-9 Over the last 2 weeks, how often have you been bothered by any of the following problems? 1. Little interest or pleasure in doing things: more than half the days 2. Feeling down, depressed, or hopeless: not at all 3. Trouble falling or staying asleep, or sleeping too much: not at all 4. Feeling tired or having little energy: more than half the days 5. Poor appetite or overeating: more than half the days 6. Feeling bad about yourself - or that you are a failure or have let yourself or your family down: not at all 7. Trouble concentrating on things, such as reading the newspaper or watching television: not at all 8. Moving or speaking so slowly that other people could have noticed. Or the opposite - being so fidgety or restless that you have been moving around a lot more than usual: not at all 9. Thoughts that you would be better off or of hurting yourself in some way: not at all Total score: 6 Depression Screening Interpretation: Positive Depression Screening Done: Yes Source: Developed by Drs. Amari Ortega, Chaparrita Mg, Domingo Cummings and colleagues, with an educational anthony from [employer]. Thrive Questionnaire Date Thrive assessed: 08/28/24 I am a: Patient What is your living situation today?: I have a steady place to live Within the past 12 months, did the food you bought not last and you didn't have the money to get more?: Never true Within the past 12 months, did you worry whether your food would run out before you got money to buy more?: Never true Do you have trouble paying for medicines?: No Do you have trouble getting transportation to medical appointments?: No Do you have trouble paying your heating and electricity bill?: No Do you have trouble taking care of your child, family member or friend?: Yes Do you have trouble with day-to-day activities such as bathing, preparing meals, shopping, managing finances, etc.?: No Are you currently unemployed and looking for a job?: No Are you interested in more education?: No Please select the resources that you would like help with: None Currently or been in a relationship where the following occur: No concerns reported THRIVE Score: 0 AUDIT C Alcohol Use Questionnaire (AUDIT-C) 1. How often do you have a drink containing alcohol?: Never Total Score: 0 PARRISH-7 AMB Questionnaire PARRISH-7 Date PARIRSH - 7 assessed: 08/28/24 Feeling nervous, anxious, or on edge: 0 = Not at all Not being able to stop or control worryin = Not at all Worrying too much about different things: 2 = More than half the days Trouble relaxin = Not at all Being so restless that it is hard to sit still: 0 = Not at all Becoming easily annoyed or irritable: 0 = Not at all Feeling afraid as if something awful might happen: 0 = Not at all Total PARRISH-7 score (0-4 normal; 5-9 mild; 10-14 moderate; 15-21 severe): 2 Source: Developed by Drs. Amari Ortega, Chaparrita Mg, Domingo Cummings and colleagues, with an educational anthony from [employer]. Review of Systems Const Details: Const Denies chills, Denies fatigue, Denies fever(s), Denies headache(s) and Denies weakness ENT Denies dizziness and Denies headache(s) Card Denies chest pain, Denies lightheadedness, Denies dyspnea and Denies other (Palpitations) Resp Denies cough, Denies dyspnea, Denies wheezing and Denies other ( shortness of breath) GI Denies abdominal pain, Denies melena, Denies hematochezia, Denies change in bowel habits, Denies dyspepsia and Denies nausea Denies hematuria and Denies dysuria Musc Denies abnormal gait, Denies myalgias, Denies arthralgias, Denies numbness and Denies tingling Skin/Breast Denies rash, Denies unusual bruising and Denies wounds Neuro Denies abnormal gait, Denies dizziness, Denies headache(s), Denies memory loss, Denies numbness, Denies Sensory deficit (Neuro), Denies tingling and Denies weakness Psych Denies anxiety, Denies depression, Denies memory loss Endo Denies cold intolerance, Denies fatigue, Denies heat intolerance, Denies polydipsia and Denies polyuria Aller/Immun Denies wheezing Physical exam (Primary Care) Vital Signs: Last Vital Signs Temp 97.7 F 11/13/24 12:38 Pulse 62 11/13/24 12:38 Resp 16 11/13/24 12:38 BP 130/70 11/13/24 12:57 Pulse Ox 97 11/13/24 12:38 Oxygen Delivery Method Room Air 11/13/24 12:38 BMI result Body Mass Index 25.3 Tobacco/Smoking Status: Tobacco use Status Tobacco use date assessed 11/13/24 11/13/24 12:41 Patient Tobacco Use Status Former Tobacco user 11/13/24 12:31 Tobacco use type Cigarette 11/13/24 12:31 e-Cigarette/Vaping Use Never Used 11/13/24 12:31 PHQ-9: PHQ-9 Score PHQ-9: Total score 6 11/13/24 12:54 Depression Screening Interpretation: Positive Thrive Assessment: Date of Thrive Assessment Date Thrive assessed 08/28/24 11/13/24 12:31 Currently or been in a relationship where the following occur: No concerns reported Const Other: General: no acute distress and well developed Nutritional Appearance: well nourished Orientation/consciousness: patient oriented x3 HENMT Head: Yes normocephalic and Yes atraumatic Eyes General: appearance normal, both eyes and all related structures Pupils: Equal, round and reactive pupils present EOM: EOMs intact bilaterally Resp Effort & Inspection: normal respiratory effort Auscultation: clear to auscultation bilaterally Cardio Rate: regular rate Rhythm: regular rhythm Heart sounds: S1 normal heart sound present, S2 normal heart sound present, no gallops, no murmurs and no rubs GI Palpation (GI): No Abdominal aortic bruit present, Soft to palpation, nontender, No hepatosplenomegaly present and No Rebound tenderness present Auscultation: normal bowel sounds General: Yes no CVA tenderness Back/Spine/Pelvis Back: no CVA tenderness Cervical Spine: cervical ROM normal and No Cervical spine tenderness Thoracic/Lumbar Spine: thoraco-lumbar ROM normal, No pain with thoraco-lumbar ROM, No thoracic spinal tenderness and No lumbar spinal tenderness Extrem General: Yes normal to inspection, No edema and No calf tenderness Skin General: warm and dry. Normal skin color. Normal skin turgor Neuro General: patient oriented x3, gait normal and no focal neuro deficit Cranial nerves: Yes Equal, round and reactive pupils present Cognition (Neuro): normal cognition Gait exam (Neuro): Normal gait present Sensory Exam: No Sensory deficit (Neuro) Psych Appearance: grossly normal Affect: normal affect Attitude: cooperative Thought process: Normal thought process present Coding Level of Care Code Est Pt Level 4 (54852) Diagnoses Essential hypertension I10 Hypertension type: essential hypertension Renal mass, left N28.89 Hospital discharge follow-up Z09 Assessment & Plan Assessment & Plan (1) HTN (hypertension): Code(s): I10 - Essential (primary) hypertension Category: Medical Qualifiers: Hypertension type: essential hypertension Qualified Code(s): I10 - Essential (primary) hypertension Plan: Resting blood pressure is 130/70, slightly above goal of less than 130/80. Continue current treatment regimen. Follow-up later this month as planned for hypertension and diabetes or sooner with symptoms or concerns. Verbalized understanding and agreed with treatment plan. (2) Renal mass, left: Code(s): N28.89 - Other specified disorders of kidney and ureter Category: Medical Plan: CT of the abdomen/pelvis on 10/26/2024 revealed 1.5 cm lesion of the left kidney. Recommend six-month follow-up or nonemergent catheterization with renal mass imaging. He is followed by [facility] and has an appointment with them on 01/25/2025. Message has been sent to nephrology regarding recent CT findings. Follow-up with Nephrology as planned. Return with symptoms or concerns. Verbalized understanding and agreed with the plan. (3) Hospital discharge follow-up: Code(s): Z09 - Encounter for follow-up examination after completed treatment for conditions other than malignant neoplasm Category: Medical Plan: Plan as above.
[2024-11-13 12:38] VITALS: BP 150/70; PULSE 62; RESP 16; TEMP 36.5; O2SAT 97; BMI 25.3
[2024-11-13 12:57] VITALS: BP 130/70
== END 2024-11-13 13:04 | disposition home or self-care (01) ==
PROVIDERS: PCP Nurse Practitioner Family; Visit Provider Nurse Practitioner Family
DX: I10 Essential (primary) hypertension (principal); N28.89 Other specified disorders of kidney and ureter; Z09 Encounter for follow-up examination after completed treatment for conditions other than malignant neoplasm

== ENCOUNTER → 2024-11-13 12:28 | Outpatient (BNVA) | payer OTHER, SELFPAY | PROVIDERS: PCP Nurse Practitioner Family; Visit Provider Nurse Practitioner Family | DX: Z09 Encounter for follow-up examination after completed treatment for conditions other than malignant neoplasm (principal); I10 Essential (primary) hypertension; N28.89 Other specified disorders of kidney and ureter | CPT/HCPCS: 99212 ==

== ENCOUNTER 2024-12-01 01:10 | Emergency (ER) | payer OTHER, SELFPAY ==
--- NOTE | ~2024-12-01 | CT_ITS ---
CLINICAL HISTORY: left flank pain CT abdomen and pelvis without contrast Comparison: 10/21/2023, 10/26/2024 Findings: The lung bases are clear. There are gallstones with the gallbladder otherwise unremarkable. There is no biliary tract dilatation. Solid organs. No urolithiasis. No bowel obstruction, pneumoperitoneum, or pneumatosis. The urinary bladder is decompressed with concentric wall thickening. Pelvic contents otherwise unremarkable. Normal appendix. The bones are intact. IMPRESSION: No acute findings. This document has been electronically signed by: Narciso Platt MD on 12/01/2024 04:40:16
[2024-12-01 01:20] VITALS: BP 145/56; PULSE 55; RESP 17; TEMP 36.9; O2SAT 95; BMI 30.2
[2024-12-01 01:23] VITALS: BP 150/70; PULSE 59; O2SAT 99
[2024-12-01 01:40] LABS: MANUAL DIFF FLAG NO
[2024-12-01 01:41] LABS: Basophils Absolute Auto 0.1 X10*3/uL (0.0-0.2); Basophils Percent Auto 0.6 % (0-2); Eosinophils Absolute Auto 0.3 X10*3/uL (0.0-0.4); Eosinophils Percent Auto 2.8 % (0-4); Hematocrit 37.1 % (42.0-52.0); Hemoglobin 12.5 g/dl (14.0-18.0); Imm Gran Abs Auto 0.01 X10*3/uL (0.00-0.03); Imm Gran Pct Auto 0.1 % (0.0-0.4); Lymphocytes Absolute Auto 3.1 X10*3/uL (1.2-4.9); Lymphocytes Percent Auto 34.4 % (20-40); Mean Corpuscular HGB Conc 33.7 g/dl (31.0-36.0); Mean Corpuscular Hemoglobin 29.6 pg (27.0-33.0); Mean Corpuscular Volume 87.9 fL (80.0-98.0); Mean Platelet Volume 10.7 fL (9.4-12.4); Monocytes Absolute Auto 0.7 X10*3/uL (0.1-1.2); Neutrophils Absolute Auto 4.8 x10*3/uL (2.0-8.3); Neutrophils Percent Auto 54.1 % (45-73); Platelet Count 195 X10*3/uL (160-400); Red Blood Count 4.22 X10*6/uL (4.60-5.80); Red Cell Distribution Width 12.9 % (11.0-16.0); White Blood Count 8.9 X10*3/uL (4.8-10.8)
[2024-12-01 02:00] LABS: Alanine Aminotransferase 6 U/L (0-40); Albumin Level 3.9 g/dL (3.5-5.0); Anion Gap 11 (12-20); Aspartate Amino Transferase 13 U/L (5-37); Bilirubin Total 0.2 mg/dL (0.0-1.0); Blood Urea Nitrogen 23 mg/dL (9-16); Calcium 9.3 mg/dL (8.4-10.2); Carbon Dioxide 24 mmol/L (22-29); Chloride 112 mmol/L (96-108); Creatinine Clr Calc Pharmacy 47.9; Estimated Glomerular Filt Rate 43; Glucose Random 126 mg/dL (60-115); Potassium 4.4 mmol/L (3.3-5.1); Sodium 143 mmol/L (135-145); Total Protein 7.4 g/dL (6.5-8.0)
[2024-12-01 03:00] LABS: Alkaline Phosphatase 76 U/L (39-117)
--- OUTSIDE RECORDS SUMMARY | 2024-12-01 03:05 | XMS_ITS | Encounter Summary ---
Author Organization [facility] Address [address] [address] Phone Care Team Providers Care Overlock Elastic Attacher Name Role Phone Smallwood Brit Wendy HENSON Primary Care Provider [phone] Reason for Visit * Reason Comments Med Refill Encounter Details Date Type Department Care Team (Late Contact Info) Description 11/01/2024 Refill [facility] [address] [place] [phone] Ermias Sandoval MD [address] [phone] Social History Tobacco Use Types Packs/Day Years [...] as of this encounter Plan of Treatment Upcoming Encounters Date Type Department Care Team (Late Contact Info) Description 02/08/2025 3:00 PM EDT Office Visit [facility] [address] [place] [address] Ermias Sandoval MD [address] [phone] documented as of this encounter Visit Diagnoses Not on filedocumented in this encounter Care Teams Overlock Elastic Attacher Relationship Specialty Start Date End Date Birt Smallwood, [place] INTERN [address] [place] [phone] PCP - General Nurse Practitioner 02/13/21 documented as of this encounter
--- OUTSIDE RECORDS SUMMARY | 2024-12-01 03:05 | XMS_ITS | Clinical Summary ---
Author Organization [facility] Address [address] [place] [address] Phone Care Team Providers Care Porter Marina Name Role Phone Nikki Naik DIRECTOR OF REGULATORY AFFAIRS Primary Care Provider [phone] Allergies No known active allergies Medications ketoconazole (NIZORAL) 2 % cream Apply topically 1 (one) time each day. Apply topical in the morning time to the bottoms of the feet bilaterally 60 g 2 Active Encounters Date Type Department Care Team Description 09/26/2024 11:30 AM EST Consult Orthopedic Surgery [place] [address] [phone] Mao Evans DPM Controlled type 2 diabetes with neuropathy (CMS/HCC) (Primary Dx); Arthritis of both feet; Hammertoes of both feet; Tinea pedis of both feet; Dermatophytosis, nail from Last 3 Months Social History Tobacco Use Types Packs/Day Years Used Date Smoking Tobacco: Never Assessed Sex and Gender Information Value Date Recorded Sex Assigned at Not on file Legal Sex Male 1:15 PM EST Gender Identity Not on file [...] Upcoming Encounters Date Type Department Care Team ([facility] st Contact Info) Description 12/15/2024 10:45 AM EDT Office Visit Orthopedic Surgery [facility] [address] [phone] Mao Evans, DPM 175 [facility] [address] [place] [address] Health Maintenance Due Date Last Done Comments Diabetes: Annual GFR (Glomerular Filtration Rate) 1962 Diabetes: Annual Foot Exam 1972 Diabetes: Annual Retina Eye Exam 1972 Zoster Vaccines (1 of 2) 2012 Pneumococcal Vaccine: 50+ Years (2 of 2 - PCV) 12/10/2020 12/11/2019 Pneumococcal Vaccine: Pediatrics (0 to 5 Years) [...] patient's age to complete this topic Meningococcal B Vacine Aged Out No lo nger eligible based on patient's age to complete this topic RSV Immunization Patients Under 20 months Aged Out No longer eligible b ased on patient's age to complete this topic Varicella Vaccines Aged Out No longer eligible based on patient's age to complete this topic Insurance [facility] [place] [address] Care Teams Porter Marina Relationship Specialty Start Date End Date Nikki Naik FNP [address] [place] [address] PCP - General Family Medicine 09/14/24
--- OUTSIDE RECORDS SUMMARY | 2024-12-01 03:05 | XMS_ITS | Encounter Summary ---
Author Organization [facility] Address [address] [address] Phone Care Team Providers Care Geological Specialist Name Role Phone Smallwood Brit Wendy HENSON Primary Care Provider [phone] Reason for Visit * Reason Comments Med Refill Encounter Details Date Type Department Care Team (Late Contact Info) Description 11/30/2024 Refill [facility] [address] [place] [phone] Ermias Sandoval MD [address] [phone] Social History Tobacco Use Types [...] Office Visit [facility] [address] [place] [address] Ermias Sandoval MD [address] [phone] documented as of this encounter Visit Diagnoses Not on filedocumented in this encounter Care Teams Geological Specialist Relationship Specialty Start Date End Date Brit Smallwood, DIRECTOR PRINT [address] [place] [id number] PCP - General Nurse Practitioner 02/13/21 documented as of this encounter
--- OUTSIDE RECORDS SUMMARY | 2024-12-01 03:05 | XMS_ITS | Clinical Summary ---
Author Organization [facility] Address [address] [facility] [place] [address] Phone Care Team Providers Care Sedimentationist Name Role Phone Brit Smallwood NP Primary Care Provider [phone] Allergies Active Allergy Reactions Criticality Noted Date [...] TABLET BY MOUTH EVERY DAY Duration: 90 0 Active omeprazole (PriLOSEC) [address] capsule [...] the evening. Active hydrALAZINE 50 MG tablet TAKE 1 TABLET BY MOUTH 3 TIMES DAILY IN THE MORNING, EVENING, AND BEDTIME 90 tablet 5 Active hydrALAZINE 50 MG tablet Take 1 tablet (50 mg total) by mouth in the morning and 1 tablet (50 mg total) in the evening and 1 tablet (50 mg total) before bedtime. 270 tablet 3 4 025 Discontinued Active Problems Problem Noted Date Diagnosed Date Acute nontraumatic kidney injury 11/20/2020 Anemia of chronic renal failure 11/20/2020 Essential hypertension 11/20/2020 Hypertensive renal disease 11/20/2020 Resolved Problems Problem Noted Date Diagnosed Date Resolved Date Chronic kidney disease stage 3 11/20/2020 02/13/2021 Encounters Date Type Department Care Team Description 11/30/2024 Refill [facility] [address] [phone] Ermias Sandoval MD 11/13/2024 Refill [facility] [address] [phone] Ermias Sandoval MD 11/07/2024 Refill [facility] [address] [phone] Ermias Sandoval MD 11/01/2024 Refill [facility] [address] [phone] Ermias Sandoval MD from Last 3 Months Social History Tobacco [...] 05/23/2020 12:00 PM EDT Plan of Treatment Upcoming Encounters Date Type Department Care Team (Late st Contact Info) Description 02/08/2025 3:00 PM EDT Office Visit [facility] [address] [place] [phone] Ermias Sandoval MD [address] [address] Health Maintenance Due Date Last Done Comments Pneumococcal Vaccine: Pediat rics (0 to 5 Years) and At-Risk Patients (6 to 64 Years) (1 of 2 - PCV) 1968 Colorectal Cancer Screening: Annual FOBT 2011 Colorectal Cancer Screening: Colonoscopy 2011 Colorectal Cancer Screening: Sigmoidoscopy 2011 Influenza Vaccine (#1) 2024 Diabetes: Hemoglobin A1C 11/01/2024 Diabetes: Ophthalmology Exam 11/01/2024 Diabetes: Pedal Pulse Checked 11/01/2024 Diabetes: Sensory Foot Exam 11/01/2024 Diabetes: Visual Foot Exam 11/01/2024 Hepatitis B Vaccine Aged Out No longe r eligible based on patient's age to complete this topic Insurance MEDICAID MEDICAID Care Teams Sedimentationist Relationship Specialty Start Date End Date Brit Smallwood GEOTECHNICAL ENGINEER [address] [place] [phone] PCP - General Nurse Practitioner 02/13/21
--- OUTSIDE RECORDS SUMMARY | 2024-12-01 03:05 | XMS_ITS | Encounter Summary ---
Author Organization [facility] Address [address] [address] Phone Care Team Providers Care Medical Records Custodian Name Role Phone Smallwood Brit Wendy HENSON Primary Care Provider [phone] Reason for Visit * Reason Comments Med Refill Encounter Details Date Type Department Care Team (Late Contact Info) Description 11/07/2024 Refill [facility] [address] [place] [phone] Ermias Sandoval MD [address] [phone] Social History Tobacco Use Types [...] Office Visit [facility] [address] [place] [address] Ermias Sandoval MD [address] [phone] documented as of this encounter Visit Diagnoses Not on filedocumented in this encounter Care Teams Medical Records Custodian Relationship Specialty Start Date End Date Brit Smallwood, METEOROLOGY FACULTY MEMBER [address] [place] [address] PCP - General Nurse Practitioner 02/13/21 documented as of this encounter
--- OUTSIDE RECORDS SUMMARY | 2024-12-01 03:05 | XMS_ITS | Encounter Summary ---
Author Organization [facility] Address [address] [facility] [address] [place] [address] Phone Care Team Providers Care Maintenance Plumber Name Role Phone Brit Smallwood [place] Primary Care Provider [phone] Reason for Visit * Reason Comments Med Refill Encounter Details Date Type Department Care Team (Late st Contact Info) Description 12/02/2023 Refill [facility] [address] [facility] [address] [place] [phone] Antonio Carter MD [id number] [facility] [address] [place] [id number] Social History Tobacco Use Types Packs/Day Years [...] EST With the assistance of Radha speaking Vietnamese a call was placed to the patient regarding a medication refill request. The patients bar machine operator was informed that in order to refill medications the patient needs a follow up visit. The patient states he will decide if he would like to continue at [facility] or follow his previous [facility] [employer]. He will contact the office with his decision. A 30 day refillis available to the patient. documented in this encounter Plan of Treatment Upcoming Encounters Date Type Department Care Team (Late st Contact Info) Description 02/08/2025 3:00 PM EDT Office Visit [facility] [address] [place] [address] [place] [address] Ermias Sandoval MD [address] [facility] [address] [place] [address] documented as of this encounter Visit Diagnoses Not on filedocumented in this encounter Care Teams Maintenance Plumber Relationship Specialty Start Date End Date Brit Smallwood NP [address] [place] [id number] PCP - General Nurse Practitioner 02/13/21 documented as of this encounter
--- OUTSIDE RECORDS SUMMARY | 2024-12-01 03:05 | XMS_ITS | Encounter Summary ---
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 Name Role Phone Smallwood Brit Wendy HENSON Primary Care Provider [phone] Reason for Visit * Reason Comments Med Refill Encounter Details Date Type Department Care Team (Late Contact Info) Description 11/13/2024 [facility]ill [facility] [address] [place] [phone] Ermias Sandoval MD [address] [phone] Social History Tobacco Use Types [...] Office Visit [facility] [address] [place] [phone] Ermias Sandoval MD [address] [phone] documented as of this encounter Visit Diagnoses Not on filedocumented in this encounter Care Teams Heavy Forger Helper Relationship Specialty Start Date End Date Brit Smallwood, AUTO ENGINE MECHANIC [address] [place] [id number] PCP - General Nurse Practitioner 02/13/21 documented as of this encounter
--- NOTE | 2024-12-01 03:24 | ED_ITS ---
HPI - Abdominal Pain General Chief Complaint: Abdominal Pain Stated Complaint: Kidney pain 16/07, hx of kidney & diabetes chronic Time Seen by Provider: 12/01/24 03:14 Source: patient, EMS, old records reviewed and foreign language interpreter Mode of arrival: EMS Limitations: no limitations History of Present Illness ED Provider: DR. Corbin HPI narrative: 64-year-old male history of HTN, HLD, dm, CKD, CVA with left-sided hemiplegia, anemia, hearing impairment presented with left flank pain x2 days, no nausea, vomiting, complaining of chills but no fever, no frequency urination, no dysuria, no hematuria. Last bowel movement was yesterday, passing flatus. Related Data Home Medications ?Medication ?Instructions ?Recorded ?Confirmed lorazepam 0.5 mg tablet (Ativan) 0.5 mg PO DAILY PRN Anxiety 07/24/20 11/13/24 glucose 5 % oral solution 15 g PO Q15M PRN hypoglycemia 12/28/22 11/13/24 blood-glucose meter (PlexxStyle 05/17/23 11/13/24 Lite Meter kit) trazodone 100 mg tablet 200 mg PO BEDTIME 09/29/23 11/13/24 fluoxetine 40 mg capsule (Prozac) 40 mg PO DAILY 01/27/24 11/13/24 brexpiprazole 1 mg tablet (Rexulti) 1 mg PO BEDTIME 04/27/24 11/13/24 atorvastatin 80 mg tablet (Lipitor) 80 mg PO BEDTIME 08/28/24 11/13/24 brexpiprazole 0.5 mg tablet 0.5 mg PO DAILY 09/25/24 11/13/24 (Rexulti) brexpiprazole 1 mg tablet (Rexulti) 1 mg PO BEDTIME 09/25/24 11/13/24 Previous Rx's ?Medication ?Instructions ?Recorded miscellaneous medical supply #1 ea 07/11/21 miscellaneous medical supply See Rx Instructions miscellaneous 05/14/22 .COMPLEX #1 ea hydralazine 50 mg tablet 50 mg PO TID 90 days #270 tabs 11/05/22 lancets 26 gauge (Easy Touch #100 ea 08/09/23 Safety Lancets) dextrose 15 gram/33 gram oral gel See Rx Instructions PO .COMPLEX 12/31/23 packet (Dex4 Glucose) #198 grams blood sugar diagnostic (FreeStyle #100 ea 02/22/24 Lite Strips) pen needle, diabetic 31 gauge x 1 ea miscellaneous TID 28 days #84 02/22/2402/16 (Easy Touch) ea apixaban 5 mg tablet (Eliquis) 5 mg PO BID #56 tabs 05/04/24 metoprolol succinate 25 mg 25 mg PO BEDTIME 28 days #28 tabs 05/04/24 tablet,extended release 24 hr polyethylene glycol 3350 17 17 g PO BID #1,020 grams 05/04/24 gram/dose oral powder sennosides 8.6 mg tablet (senna) 8.6 mg PO BID #56 tabs 05/04/24 ursodiol 300 mg capsule 300 mg PO BID #56 caps 05/04/24 hydrocortisone 1 % topical cream 1 appl topical TID PRN skin 05/22/24 irritation #28.35 grams albuterol sulfate 90 mcg/actuation 2 puff inhalation Q6H PRN 06/08/24 aerosol inhaler shortness of breath or wheezing #8.5 grams insulin degludec 200 unit/mL (3 46 unit (0.23 mL) subcut DAILY 30 07/17/24 mL) subcutaneous pen ( #6.9 mL FlexTouch U-200 insulin) acetaminophen 325 mg tablet 650 mg (2 x 325 mg) PO Q6H PRN 08/02/24 (Tylenol) temp, headache or general discomfort 30 days #120 tabs multivitamin,tx-minerals 1 cap PO DAILY #90 caps 09/18/24 (Multi-Vitamin HP/Minerals capsule) nifedipine 30 mg tablet,extended 30 mg PO DAILY 30 days #30 tabs 09/18/24 release 24 hr (Procardia XL) dulaglutide 3 mg/0.5 mL 3 mg (0.5 mL) subcut QWEEK #2 mL 10/11/24 subcutaneous pen injector ([facility]) cholecalciferol (vitamin D3) 25 25 mcg PO DAILY 90 days #90 tabs 10/23/24 mcg (1,000 unit) tablet ascorbic acid (vitamin C) 500 mg 500 mg PO BID 3 months #180 tabs 11/07/24 tablet aspirin 81 mg tablet,delayed 81 mg PO QAM 90 days #90 tabs 11/07/24 release atorvastatin 80 mg tablet 80 mg PO BEDTIME 90 days #90 tabs 11/07/24 empagliflozin 10 mg tablet 10 mg PO QAM #28 tabs 11/07/24 (Jardiance) tamsulosin 0.4 mg capsule (Flomax) 0.4 mg PO BEDTIME 90 days #90 caps 11/07/24 losartan 50 mg tablet 75 mg (1.5 x 50 mg) PO BID #84 tabs 11/08/24 lactulose 10 gram/15 mL oral 30 ml PO .q72 h PRN constipation 11/13/24 solution (Enulose) #473 mL acetaminophen 325 mg tablet 325 mg PO QID PRN pain #20 tabs 12/01/24 (Tylenol) Allergies Allergy/AdvReac Type Severity Reaction Status Date / Time amlodipine [From [facility]] Allergy Severe due to Verified 12/01/24 01:23 poor renal function ibuprofen Allergy Severe 2/2 renal Verified 12/01/24 01:23 function Review of Systems Review of Systems All other systems are reviewed and are negative Constitutional: Reports as per HPI and Reports no additional constitutional complaints Eyes: Reports as per HPI and Reports no additional eye complaints Reports system reviewed and no additional complaints, except as documented Cardiovascular: Reports as per HPI and Reports no additional cardiovascular complaints Respiratory: Reports as per HPI and Reports no additional respiratory complaints Gastrointestinal: Reports as per HPI and Reports no additional gastrointestinal complaints Genitourinary: Reports no additional female genitourinary complaints Musculoskeletal: Reports no additional musculoskeletal complaints Skin/Breast: Reports system reviewed and no additional complaints, except as docu Psychiatric: Reports no additional psychiatric complaints Endocrine: Reports no additional endocrine complaints Hematologic/Lymphatic: Reports no additional hematologic/lymphatic complaints Allergic/Immunologic: Reports no additional allergic/immunologic complaints Reports system reviewed and no additional complaints, except as documented and Reports Abnormal speech present [facility] Past Medical History Medical History Skin lesion Squamous cell carcinoma of skin Encephalopathy Cerebrovascular accident Hypoglycemia unawareness associated with type 2 diabetes mellitus Diabetes type 2, uncontrolled Type 2 diabetes mellitus with diabetic polyneuropathy Essential hypertension Epigastric pain Skin cancer Postoperative bleeding from incision Skin lesion Stroke Type 2 diabetes mellitus with chronic kidney disease Chronic kidney disease, stage 3 Aphagia Unsteady gait Anemia Hypertensive chronic kidney disease with stage 1 through stage 4 chronic kidney disease, or unspecified chronic kidney disease CKD (chronic kidney disease) Hearing loss Preglaucoma Vascular device, implant, or graft complication Bronchitis HTN (hypertension) Hyperlipidemia Hyperlipidemia Vitamin D deficiency Vitamin D deficiency Constipation GERD (gastroesophageal reflux disease) Diabetes Hemiplegia Surgical History History of removal of cyst (~02/09/22) Hx of cataract surgery History of surgical removal of skin lesion History of exploratory laparotomy Family History Family History Father Myocardial infarction Mother Throat cancer Diabetes Family/Other FH: mental illness Brother In good health Sister In good health Sister In good health Daughter In good health Social History Social History 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 Household Members Other:: nursing home Housing: House Do you presently have visiting nurse or other home services: Yes Alcohol intake: current Alcohol intake frequency: does not drink Patient Tobacco Use Status: Former Tobacco user Tobacco use type: Cigarette Cigarette Packs Per Day: 2 Cigarettes Per Day: 40.0 Years Smoked: 16 Smoked in Last 30 Days: No e-Cigarette/Vaping Use: Never Used Second Hand Smoke Exposure: No Use of substances other than those prescribed or required for medical reasons: No Substance Use Type: Marijuana Advance Directives: Yes Advance Directives on File: Yes Advance Directives Date on File: 07/04/24 service: No Current occupational status: disabled Current occupational exposures/hazards: No Cognitive needs: Yes (walker) Hearing needs: No Vision needs: No Physical Exam ED Vital Signs: Vital Signs - 24 hr 12/01/24 01:20 12/01/24 03:31 Temperature 98.4 F Pulse Rate 55 58 Respiratory Rate 17 18 Blood Pressure 145/56 H 143/64 H Pulse Oximetry 95 95 Oxygen Delivery Method Room Air Room Air BMI result Body Mass Index 30.2 Vital signs have been reviewed and appear to be correct. Blood pressure elevated. Heart rate normal. Respiratory rate normal. Temperature normal. Oxygen saturation normal. Appearance: Alert. Oriented X3. No acute distress. Head: Normal external exam. Normocephalic. Atraumatic. No Matthews signs noted. No raccoon eyes noted Eyes: PERRLA. EOMI. Conjunctiva and sclera normal. Eyelids normal. ENT: TM's Normal. Pharynx normal. Uvula midline. Moist mucous membranes. No trismus noted. No drooling noted. No muffled voice noted. Neck: Normal inspection. Neck supple. FROM. No adenopathy. Thyroid Normal. No meningeal signs. No neck mass noted. CVS: Normal heart rate and rhythm. Heart sound normal. No murmurs noted. Pulses normal throughout. Respiratory: No respiratory distress. Painless inspiration. Breath sounds normal. No wheezes/rales/rhonchi noted. Chest nontender. No accessory muscle usage noted or decreased air movement noted. Abdomen: Old surgical scar for exploratory laparotomy, Soft and nontender. Bowel sounds normal in all 4 quadrants. No distention noted. No organomegaly noted. No visible injury noted. Back: L CVA tenderness. Full range of motion noted. Skin: Skin warm and dry. Normal skin color. Normal skin turgor. No rashes/lesions/lacerations noted. Extremities: No lower extremity edema. Extremities exhibit normal range of motion. Extremities nontender. Neuro: Oriented X 3. Cranial nerve exam: II-XII are grossly intact No motor deficit. No sensory deficit. Reflexes normal. Course Reevaluation(s) Reevaluation #1: left flank pain, no hematuria, no sign of infection on the UA, CT abdomen and pelvis also was unremarkable for acute intra-abdominal pathology. Patient has no abdominal pain now. Was instructed to take Tylenol or ibuprofen if needed for pain. Time: 06:09 Medical Decision Making Differential Diagnosis Differential Diagnoses: The differential diagnosis associated with the presentation includes ( Left pyelonephritis, UTI, obstructive kidney stone, colitis, diverticulitis, electrolyte derangement, severe anemia.) Admission/Observation Consideration of admission/observation: Escalation of care including admission/observation considered Lab Data MDM Lab Attestation statement: I reviewed the patient's lab results. 12/01/24 01:35 12/01/24 01:35 Labs: Lab Results 12/01/24 12/01/24 Range/Units 01:35 03:33 WBC 8.9 (4.8-10.8) X10*3/uL RBC 4.22 L (4.60-5.80) X10*6/uL Hgb 12.5 L (14.0-18.0) g/dl Hct 37.1 L (42.0-52.0) % MCV 87.9 (80.0-98.0) fL MCH 29.6 (27.0-33.0) pg MCHC 33.7 (31.0-36.0) g/dl RDW 12.9 (11.0-16.0) % Plt Count 195 (160-400) X10*3/uL MPV 10.7 (9.4-12.4) fL Immature Gran % (Auto) 0.1 (0.0-0.4) % Neut % (Auto) 54.1 (45-73) % Lymph % (Auto) 34.4 (20-40) % Parke % (Auto) 8.0 (2-11) % Eos % (Auto) 2.8 (0-4) % Baso % (Auto) 0.6 (0-2) % Lymph # (Auto) 3.1 (1.2-4.9) X10*3/uL Parke # (Auto) 0.7 (0.1-1.2) X10*3/uL Eos # (Auto) 0.3 (0.0-0.4) X10*3/uL Baso # (Auto) 0.1 (0.0-0.2) X10*3/uL Abs Immat Gran (auto) 0.01 (0.00-0.03) X10*3/uL Absolute Neuts (auto) 4.8 (2.0-8.3) x10*3/uL Absolute Nucleated RBC 0.000 (0.0-0.012) X10*3/uL Nucleated RBC % (auto) 0.0 (0.0-0.2) /100WBC Sodium 143 (135-145) mmol/L Potassium 4.4 (3.3-5.1) mmol/L Chloride 112 H (96-108) mmol/L Carbon Dioxide 24 (22-29) mmol/L Anion Gap 11 L (12-20) BUN 23 H (9-16) mg/dL Creatinine 1.63 H (0.5-1.4) mg/dL Estim Creat Clear Calc 47.9 Estimated GFR 43 Random Glucose 126 H (60-115) mg/dL Calcium 9.3 (8.4-10.2) mg/dL Total Bilirubin 0.2 (0.0-1.0) mg/dL AST 13 (5-37) U/L ALT 6 (0-40) U/L Alkaline Phosphatase 76 (39-117) U/L Total Protein 7.4 (6.5-8.0) g/dL Albumin 3.9 (3.5-5.0) g/dL Urine Color Yellow Urine Appearance Clear Urine pH 5.5 (5.0-9.0) Ur Specific [place] 1.015 (1.005-1.025) Urine Protein 100 (2+) H (Neg-Trace) mg/dL Urine Glucose (UA) 500 H (Negative) mg/dL Urine Ketones Negative (Negative) mg/dL Urine Blood Negative (Negative) Urine Nitrite Negative (Negative) Ur Leukocyte Esterase Negative (Negative) Urine RBC 0-2 (0-2) /HPF Urine WBC 0-5 (0-5) /HPF Ur Squamous Epith Cells 0-2 (0-2) /HPF Urine Bacteria None Seen (None Seen) Hyaline Casts 0-2 (0-2) /LPF Independent Interpretation I performed an independent interpretation of an: CT Scan (No acute findings.) Radiology Impression Discussion of test interpretation with radiology: I have reviewed the radiologist's reading. Medications Administered Discontinued Medications Generic Name Dose Route Start Last Admin Trade Name Freq PRN Reason Stop Dose Admin Morphine Sulfate 1 mg 12/01/24 03:23 12/01/24 03:30 Morphine Sulfate 2 Mg/Ml Cartridge IVPUSH 12/01/24 03:24 1 mg ONCE ONE Administration Protocol Discharge Plan Discharge Clinical Impression: Acute left flank pain Patient Disposition: Home, Self-Care Instructions: Flank Pain (ED) Prescriptions: New acetaminophen [Tylenol] 325 mg tablet 325 mg PO QID PRN (Reason: pain) Qty: 20 0RF No Action hydralazine 50 mg tablet 50 mg PO TID 90 Days Qty: 270 2RF Protocol: Hold for SBP< HOLD for SBP < : 110 (DME) lancets [Easy Touch Safety Lancets] 26 gauge misc See Rx Instructions .ROUTE .COMPLEX Qty: 100 11RF Dose Instruction: USE 2-3 TIMES A DAY DIRECTED FOR BLOOD GLUCOSE MONITORING Rx Instructions: USE 2-3 TIMES A DAY DIRECTED FOR BLOOD GLUCOSE MONITORING dextrose [Dex4 Glucose] 15 gram/33 gram gel in packet See Rx Instructions PO .COMPLEX Qty: 198 4RF Rx Instructions: 15 gm pRN hypoglycemia (DME) FreeStyle Lite Strips Strip See Rx Instructions .ROUTE .COMPLEX Qty: 100 11RF Dose Instruction: USE TO TEST BLOOD SUGAR FOUR TIMES A DAY Rx Instructions: USE TO TEST BLOOD SUGAR FOUR TIMES A DAY pen needle, diabetic [Easy Touch] 31 gauge x 5/16 needle 1 ea miscellaneous TID 28 Days Qty: 84 11RF Eliquis 5 mg tablet 5 mg PO BID Qty: 56 11RF Rx Instructions: Report any excessive bleeding metoprolol succinate 25 mg tablet extended release 24 hr 25 mg PO BEDTIME 28 Days Qty: 28 11RF Rx Instructions: Do not crush/chew sennosides [senna] 8.6 mg tablet 8.6 mg PO BID Qty: 56 11RF polyethylene glycol 3350 17 gram/dose powder 17 g PO BID Qty: 1020 8RF ursodiol 300 mg capsule 300 mg PO BID Qty: 56 11RF Tresiba FlexTouch U-200 200 unit/mL (3 mL) insulin pen 46 unit subcut DAILY 30 Days Qty: 6.9 5RF Rx Instructions: Report any blood sugars <70 acetaminophen [Tylenol] 325 mg tablet 650 mg PO Q6H PRN (Reason: temp, headache or general discomfort) 30 Days Qty: 120 3RF Rx Instructions: Take two 325mg tabs every 6 hours as needed for fever over 101, headache, or general discomfort. Contact PCP if symptoms persist greater than 24 hours. Multi-Vitamin HP/Minerals Capsule 1 cap PO DAILY Qty: 90 1RF Rx Instructions: take for supplement daily with food nifedipine [Procardia XL] 30 mg tablet extended release 24hr 30 mg PO DAILY 30 Days Qty: 30 3RF Trulicity 3 mg/0.5 mL pen injector 3 mg subcut QWEEK Qty: 2 4RF cholecalciferol (vitamin D3) 25 mcg (1,000 unit) tablet 25 mcg PO DAILY 90 Days Qty: 90 4RF ascorbic acid (vitamin C) 500 mg tablet 500 mg PO BID 90 Days Qty: 180 0RF aspirin 81 mg tablet,delayed release (DR/EC) 81 mg PO QAM 90 Days Qty: 90 1RF Rx Instructions: Do not crush/chew atorvastatin 80 mg tablet 80 mg PO BEDTIME 90 Days Qty: 90 1RF Rx Instructions: replaces simvastatin 40 mg qhs Jardiance 10 mg tablet 10 mg PO QAM Qty: 28 6RF tamsulosin [Flomax] 0.4 mg capsule 0.4 mg PO BEDTIME 90 Days Qty: 90 1RF losartan 50 mg tablet 75 mg PO BID Qty: 84 3RF lactulose [Enulose] 10 gram/15 mL solution 30 ml PO .q72 h PRN (Reason: constipation) Qty: 473 3RF Rx Instructions: Take every 3 days or every 72 hours as needed. If no effect after 24 hours from dose, contact PCP albuterol sulfate 90 mcg/actuation HFA aerosol inhaler 2 puff inhalation Q6H MDD 8 PRN (Reason: shortness of breath or wheezing) Qty: 8.5 0RF (DME) miscellaneous medical supply Misc See Rx Instructions .ROUTE .MEDSUPPLY Qty: 1 0RF Rx Instructions: R AFO, Daily As directed, 999 days. Disp #1 lorazepam [Ativan] 0.5 mg tablet 0.5 mg PO DAILY PRN (Reason: Anxiety) miscellaneous medical supply Misc See Rx Instructions miscellaneous .COMPLEX Qty: 1 1RF Rx Instructions: Right lateral sole wedge as directed; hydrocortisone 1 % cream 1 appl topical TID PRN (Reason: skin irritation) Qty: 28.35 0RF (DME) blood-glucose meter [FreeStyle Lite Meter] Kit See Rx Instructions .Route Rx Instructions: As directed trazodone 100 mg tablet 200 mg PO BEDTIME glucose 5 % solution 15 g PO Q15M PRN (Reason: hypoglycemia) Rexulti 0.5 mg tablet 0.5 mg PO DAILY Rexulti 1 mg tablet 1 mg PO BEDTIME fluoxetine [Prozac] 40 mg capsule 40 mg PO DAILY Rexulti 1 mg tablet 1 mg PO BEDTIME atorvastatin [Lipitor] 80 mg tablet 80 mg PO BEDTIME Print Language: Chinese
[2024-12-01] MEDS: Morphine Sulfate 2 MG/ML CARTRIDGE 1 MG IVPUSH (03:30)
[2024-12-01 03:31] VITALS: BP 143/64; PULSE 58; RESP 18; O2SAT 95
[2024-12-01 03:42] LABS: Appearance Urine Clear; Color Urine Yellow; Glucose Urine UA 500 mg/dL (Negative); Leukocyte Esterase Urine Negative (Negative); Nitrite Urine Negative (Negative); PH 5.5 (5.0-9.0); Specific Gravity - Urine 1.015 (1.005-1.025); UMIC TRIGGER UACC YES; Urine Blood Negative (Negative); Urine Ketones Negative (Negative); Urine Protein 100 (2+) mg/dL (Neg-Trace)
[2024-12-01 04:02] LABS: Bacteria Urine None Seen (None Seen); Hyaline Casts Urine 0-2 /LPF (0-2); RBC Urine 0-2 /HPF (0-2); Squamous Epithelial Cell Urine 0-2 /HPF (0-2); WBC Urine 0-5 /HPF (0-5)
[2024-12-01] MEDS: Acetaminophen 325 MG TABLET 975 MG PO (09:06)
[2024-12-01 09:08] VITALS: BP 138/82; PULSE 58; RESP 18; TEMP 36.6; O2SAT 95
== END 2024-12-01 09:17 | disposition home or self-care (01) ==
PROVIDERS: Emergency Provider Emergency Medicine
DX: R10.9 Unspecified abdominal pain (principal); R10.2 Pelvic and perineal pain; E11.9 Type 2 diabetes mellitus without complications; Z79.4 Long term (current) use of insulin; Z79.899 Other long term (current) drug therapy; Z87.891 Personal history of nicotine dependence
CPT/HCPCS: 36415; 74176; 80053; 81001; 81003; 83036; 85025; 96374; 99212; 99284; J2270

== ENCOUNTER → 2024-12-01 03:23 | Outpatient (BNV) | payer OTHER, SELFPAY | PROVIDERS: Emergency Provider Emergency Medicine; Visit Provider Specialist | DX: R10.9 Unspecified abdominal pain (principal) | CPT/HCPCS: 74176 ==

== ENCOUNTER 2024-12-01 12:39 | Outpatient (AMB) | payer OTHER, SELFPAY ==
--- NOTE | 2024-12-01 12:47 | A.OFFPC_ITS ---
Vital Signs 12/01/24 13:05 Height 5 ft 6 in Weight 161 lb BMI 26.0 BP 126/63 Blood Pressure Location Rt brachial Position Sitting Respiration 16 Pulse 59 Pulse Source Pulse Oximeter Temp 97.9 F Temp Source Oral Pulse Oximetry (%) 97 Oxygen Delivery Method Room Air Intake Visit Reasons: Pain Intake Note: patient here c/o pain on lower back left side Machinist Class B Required: Yes Machinist Class B Language: Algerian Information Interpreted: non-clinical & clinical Allergies amlodipine [From NORVAS] Allergy (Severe, Verified 12/01/24 12:55) due to poor renal function ibuprofen Allergy (Severe, Verified 12/01/24 12:55) 2/2 renal function Tobacco use date assessed: 12/01/24 Dental Screening Dental Screen Date: 12/01/24 Did you have a dental visit in the last 12 months?: Yes Did you have a dental problem in the last 6 months where you did not have access to dental care?: No Was dental information given to patient?: Patient has dentist HPI HPI Comments History of Present Illness Details 64-year-old Algerian-speaking male from [facility] presents with complaints of left sided flank pain for the past 5 days. He is accompanied by care home staff. He was evaluated at [facility] today for left flank pain. Abdominal/pelvis CT, labs, and urinalysis were unrevealing. He was advised to take Tylenol as prescribed. He reports pain with touching of his left flank. He denies fall, injury, or trauma. He missed his appointment on 11/28/2024 for hypertension and diabetes follow-up. [facility] Medical History Skin lesion Squamous cell carcinoma of skin Encephalopathy Cerebrovascular accident Hypoglycemia unawareness associated with type 2 diabetes mellitus Diabetes type 2, uncontrolled Type 2 diabetes mellitus with diabetic polyneuropathy Essential hypertension Epigastric pain Skin cancer Postoperative bleeding from incision Skin lesion Stroke Type 2 diabetes mellitus with chronic kidney disease Chronic kidney disease, stage 3 Aphagia Unsteady gait Anemia Hypertensive chronic kidney disease with stage 1 through stage 4 chronic kidney disease, or unspecified chronic kidney disease CKD (chronic kidney disease) Hearing loss Preglaucoma Vascular device, implant, or graft complication Bronchitis HTN (hypertension) Hyperlipidemia Hyperlipidemia Vitamin D deficiency Vitamin D deficiency Constipation GERD (gastroesophageal reflux disease) Diabetes Hemiplegia Surgical History History of removal of cyst (~02/09/22) Hx of cataract surgery History of surgical removal of skin lesion History of exploratory laparotomy Family History Father Myocardial infarction Mother Throat cancer Diabetes Family/Other FH: mental illness Brother In good health Sister In good health Sister In good health Daughter In good health Social History 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 Household Members Other:: care home Housing: House Do you presently have visiting nurse or other home services: Yes Alcohol intake: current Alcohol intake frequency: does not drink Patient Tobacco Use Status: Former Tobacco user Tobacco use type: Cigarette Cigarette Packs Per Day: 2 Cigarettes Per Day: 40.0 Years Smoked: 16 e-Cigarette/Vaping Use: Never Used Second Hand Smoke Exposure: No Substance Use Type: Marijuana Advance Directives Date on File: 07/04/24 service: No Current occupational status: disabled Current occupational exposures/hazards: No Cognitive needs: Yes (walker) Hearing needs: No Vision needs: No Questionnaire Thrive Questionnaire Date Thrive assessed: 11/13/24 I am a: Patient What is your living situation today?: I have a steady place to live Within the past 12 months, did the food you bought not last and you didn't have the money to get more?: Never true Within the past 12 months, did you worry whether your food would run out before you got money to buy more?: Never true Do you have trouble paying for medicines?: No Do you have trouble getting transportation to medical appointments?: No Do you have trouble paying your heating and electricity bill?: No Do you have trouble taking care of your child, family member or friend?: Yes Do you have trouble with day-to-day activities such as bathing, preparing meals, shopping, managing finances, etc.?: No Are you currently unemployed and looking for a job?: No Are you interested in more education?: No Please select the resources that you would like help with: None Currently or been in a relationship where the following occur: No concerns reported THRIVE Score: 0 PARRISH-7 AMB Questionnaire PARRISH-7 Date PARRISH - 7 assessed: 08/28/24 Source: Developed by Drs. Amari Ortega, Chaparrita Mg, Domingo Cummings and colleagues, with an educational anthony from [employer]. Review of Systems Const Details: Const Denies chills, Denies fatigue, Denies fever(s), Denies headache(s) and Denies weakness ENT Denies dizziness and Denies headache(s) Card Denies chest pain, Denies lightheadedness, Denies dyspnea and Denies other (Palpitations) Resp Denies cough, Denies dyspnea, Denies wheezing and Denies other ( shortness of breath) GI Denies abdominal pain, Denies melena, Denies hematochezia, Denies change in bowel habits, Denies dyspepsia and Denies nausea Denies hematuria and Denies dysuria Musc Reports left flank pain, Denies abnormal gait, Denies arthralgias, Denies numbness and Denies tingling Skin/Breast Denies rash, Denies unusual bruising and Denies wounds Neuro Denies abnormal gait, Denies dizziness, Denies headache(s), Denies memory loss, Denies numbness, Denies Sensory deficit (Neuro), Denies tingling and Denies weakness Psych Denies anxiety, Denies depression, Denies memory loss Endo Denies cold intolerance, Denies fatigue, Denies heat intolerance, Denies polydipsia and Denies polyuria Aller/Immun Denies wheezing Physical exam (Primary Care) Vital Signs: Last Vital Signs Temp 97.9 F 12/01/24 13:05 Pulse 59 12/01/24 13:05 Resp 16 12/01/24 13:05 BP 126/63 12/01/24 13:05 Pulse Ox 97 12/01/24 13:05 Oxygen Delivery Method Room Air 12/01/24 13:05 BMI result Body Mass Index 26.0 Tobacco/Smoking Status: Tobacco use Status Tobacco use date assessed 12/01/24 12/01/24 13:13 Patient Tobacco Use Status Former Tobacco user 12/01/24 12:50 Tobacco use type Cigarette 12/01/24 12:50 e-Cigarette/Vaping Use Never Used 12/01/24 12:50 Thrive Assessment: Date of Thrive Assessment Date Thrive assessed 11/13/24 12/01/24 12:50 Currently or been in a relationship where the following occur: No concerns reported Const Other: General: no acute distress and well developed Nutritional Appearance: well nourished Orientation/consciousness: patient oriented x3 [facility] Head: Yes normocephalic and Yes atraumatic Eyes General: appearance normal, both eyes and all related structures Pupils: Equal, round and reactive pupils present EOM: EOMs intact bilaterally Resp Effort & Inspection: normal respiratory effort Auscultation: clear to auscultation bilaterally Cardio Rate: regular rate Rhythm: regular rhythm Heart sounds: S1 normal heart sound present, S2 normal heart sound present, no gallops, no murmurs and no rubs GI Palpation (GI): No Abdominal aortic bruit present, Soft to palpation, nontender, No hepatosplenomegaly present and No Rebound tenderness present Auscultation: normal bowel sounds General: Left CVA tenderness Back/Spine/Pelvis Back: no CVA tenderness Cervical Spine: cervical ROM normal and No Cervical spine tenderness Thoracic/Lumbar Spine: thoraco-lumbar ROM normal, No pain with thoraco-lumbar ROM, No thoracic spinal tenderness and No lumbar spinal tenderness. Left flank tenderness to palpation and percussion Extrem General: Yes normal to inspection, No edema and No calf tenderness Skin General: warm and dry. Normal skin color. Normal skin turgor Neuro General: patient oriented x3, gait normal and no focal neuro deficit Cranial nerves: Yes Equal, round and reactive pupils present Cognition (Neuro): normal cognition Gait exam (Neuro): Normal gait present Sensory Exam: No Sensory deficit (Neuro) Psych Appearance: grossly normal Affect: normal affect Attitude: cooperative Thought process: Normal thought process present Results AMB Hemoglobin A1c AMB Hemoglobin A1c 5.7 % Last Edit by Nikki Jones on 12/01/24 13:42 Coding Level of Care Code Est Pt Level 4 (68586) Diagnoses Back strain S39.012A Type 2 diabetes mellitus with stage 3 chronic kidney disease, with long-term current use of insulin, unspecified whether stage 3a or 3b CKD E11.22; N18.30; Z79.4 Diabetes mellitus type: type 2 Diabetes mellitus penitentiary insulin use: with ferry terminal supervisor use Diabetes mellitus complication status: with kidney complications Diabetes mellitus complication detail: with chronic kidney disease Chronic kidney disease stage: stage 3 (moderate) Chronic kidney disease stage 3 subtype: unspecified whether 3a or 3b Essential hypertension I10 Hypertension type: essential hypertension Assessment & Plan Assessment & Plan (1) Back strain: Code(s): S39.012A - Strain of muscle, fascia and tendon of lower back, initial encounter Category: Medical Plan: Left flank pain x5 days. He was evaluated at [facility] today for left flank pain. Abdominal/pelvis CT, labs, and urinalysis were unrevealing. He was advised to take Tylenol as prescribed. Left flank tenderness with percussion and palpation. Advised to take Tylenol as prescribed. Warm/cool compresses encouraged. Follow-up next month as planned for an extended physical exam. Return or go to the ED with new or worsening symptoms. Verbalized understanding and agreed with treatment plan. (2) Diabetes: Code(s): E11.9 - Type 2 diabetes mellitus without complications Category: Medical Qualifiers: Diabetes mellitus type: type 2 Diabetes mellitus penitentiary insulin use: with penitentiary use Diabetes mellitus complication status: with kidney complications Diabetes mellitus complication detail: with chronic kidney disease Chronic kidney disease stage: stage 3 (moderate) Chronic kidney disease stage 3 subtype: unspecified whether 3a or 3b Qualified Code(s): E11.22 - Type 2 diabetes mellitus with diabetic chronic kidney disease; N18.30 - Chronic kidney disease, stage 3 unspecified; Z79.4 - ferry terminal supervisor (current) use of insulin Plan: A1c today is 5.7%, within goal of less than 7.0%. Previous A1c was 5.5%. Continue current treatment regimen. Will recheck A1c in 3 months. Verbalized understanding and agreed with treatment plan. (3) HTN (hypertension): Code(s): I10 - Essential (primary) hypertension Category: Medical Qualifiers: Hypertension type: essential hypertension Qualified Code(s): I10 - Essential (primary) hypertension Plan: Blood pressure is 126/63, within goal of less than 130/80. Continue current treatment regimen. Will continue to monitor. Verbalized understanding and agreed with the plan. Orders: Orders AMB Hemoglobin A1c Today Z13.9 - Encounter for screening, unspecified
[2024-12-01 13:05] VITALS: BP 126/63; PULSE 59; RESP 16; TEMP 36.6; O2SAT 97; BMI 26.0
--- OUTSIDE RECORDS SUMMARY | 2024-12-01 14:43 | XMS_ITS | Encounter Summary ---
Author Organization [facility] Address [address] [facility] [address] [place] [address] Phone Care Team Providers Care Front Desk Team Member Name Role Phone Brit Smallwood VIDEO PRESENTATION OPERATOR Primary Care Provider [phone] Reason for Visit * Reason Comments Med Refill Encounter Details Date Type Department Care Team (Late st Contact Info) Description 12/09/2023 Refill [facility] [address] [facility] [address] [place] [phone] Antonio Carter MD [address] [phone] Social History Tobacco Use Types [...] Visit [facility] [address] [place] [address] Ermias Sandoval MD [address] [phone] documented as of this encounter Visit Diagnoses Not on filedocumented in this encounter Care Teams Front Desk Team Member Relationship Specialty Start Date End Date Brit Smallwood NP [address] [place] [address] PCP - General Nurse Practitioner 02/13/21 documented as of this encounter
--- OUTSIDE RECORDS SUMMARY | 2024-12-01 14:43 | XMS_ITS | Clinical Summary ---
Author Organization [address] [facility] Address 175 [place] [address] Phone Care Team Providers Care Commercial Floor Covering Installer Name Role Phone Nikki Naik ADDICTIONS RECOVERY SPECIALIST Primary Care Provider [phone] Allergies No known active allergies Medications ketoconazole (NIZORAL) 2 % cream Apply topically 1 (one) time each day. Apply topical in the morning time to the bottoms of the feet bilaterally 60 g 2 Active Encounters Date Type Department Care Team Description 09/26/2024 11:30 AM EST Consult Orthopedic Surgery [place] [address] [phone] Mao Evans DPM Controlled type [...] Upcoming Encounters Date Type Department Care Team ([facility] st Contact Info) Description 12/15/2024 10:45 AM EDT Office Visit Orthopedic Surgery [facility] [address] [phone] Mao Evans, DPM 175 [facility] [address] [place] [address] Health Maintenance Due Date Last Done Comments [...] patient's age to complete this topic Insurance [facility] [address] PL[address] Care Teams Commercial Floor Covering Installer Relationship Specialty Start Date End Date Nikki Naik FNP [address] [place] [address] PCP - General Family Medicine 09/14/24
--- OUTSIDE RECORDS SUMMARY | 2024-12-01 14:43 | XMS_ITS | Encounter Summary ---
Author Organization [facility] Address [address] [address] Phone Care Team Providers Care Dispatcher Tugboat Name Role Phone Smallwood Brit Wendy HENSON Primary Care Provider [phone] Reason for Visit * Reason Comments Med Refill Encounter Details Date Type Department Care Team (Late Contact Info) Description 11/01/2024 Refill [facility] [address] [place] [phone] Ermias Sandoval MD [address] [phone] Social History Tobacco Use Types [...] Office Visit [facility] [address] [place] [address] Ermias Sandoval MD [address] [phone] documented as of this encounter Visit Diagnoses Not on filedocumented in this encounter Care Teams Dispatcher Tugboat Relationship Specialty Start Date End Date Brit Smallwood, RECLAMATION FURNACE OPERATOR [address] [place] [address] PCP - General Nurse Practitioner 02/13/21 documented as of this encounter
--- OUTSIDE RECORDS SUMMARY | 2024-12-01 14:43 | XMS_ITS | Encounter Summary ---
Author Organization [facility] Address [address] [address] Phone Care Team Providers Care Manager Career Name Role Phone Smallwood Brit Wendy HENSON Primary Care Provider [phone] Reason for Visit * Reason Comments Med Refill Encounter Details Date Type Department Care Team (Late Contact Info) Description 11/07/2024 [facility] [address] [place] [phone] Ermias Sandoval MD [address] [phone] Social History Tobacco Use Types [...] Office Visit [facility] [address] [place] [address] Ermias Sandoval MD [address] [phone] documented as of this encounter Visit Diagnoses Not on filedocumented in this encounter Care Teams Manager Career Relationship Specialty Start Date End Date Brit Smallwood, PARTITION SETTER [address] [place] [address] PCP - General Nurse Practitioner 02/13/21 documented as of this encounter
--- OUTSIDE RECORDS SUMMARY | 2024-12-01 14:43 | XMS_ITS | Clinical Summary ---
Author Organization [facility] Address [address] [place] [address] Phone Care Team Providers Care Diagnostic Cardiac Sonographer Name Role Phone Brit Smallwood NP Primary Care Provider [phone] Allergies Active Allergy Reactions Criticality Noted Date [...] 11/30/2024 Refill [facility] [address] [phone] Ermias Sandoval MD 11/13/2024 Refill [facility] [address] [phone] Ermias Sandoval MD 11/07/2024 Refill [facility] [address] [phone] Ermias Sandoval MD 11/01/2024 Refill [facility] [address] [phone] Ermias Sandoval MD from Last 3 Months [...] Office Visit [facility] [address] [place] [phone] Ermias Sandoval MD [address] [phone] Health Maintenance Due Date Last Done Comments [...] this topic Insurance MEDICAID MEDICAID Care Teams Diagnostic Cardiac Sonographer Relationship Specialty Start Date End Date Brit Smallwood PHILOSOPHY INSTRUCTOR [address] [place] [address] PCP - General Nurse Practitioner 02/13/21
--- OUTSIDE RECORDS SUMMARY | 2024-12-01 14:43 | XMS_ITS | Encounter Summary ---
Author Organization [facility] Address [address] [address] Phone Care Team Providers Care Information Receptionist Name Role Phone Smallwood Brit Wendy HENSON Primary Care Provider [phone] Reason for Visit * Reason Comments Med Refill Encounter Details Date Type Department Care Team (Late Contact Info) Description 11/13/2024 Refill [facility] [address] [place] [phone] Ermias Sandoval MD [address] [phone] Social History Tobacco Use Types [...] Office Visit [facility] [address] [place] [address] Ermias Sandoval MD [address] [phone] documented as of this encounter Visit Diagnoses Not on filedocumented in this encounter Care Teams Information Receptionist Relationship Specialty Start Date End Date Brit Smallwood, SHEEP FARM WORKER [address] [place] [address] PCP - General Nurse Practitioner 02/13/21 documented as of this encounter
--- OUTSIDE RECORDS SUMMARY | 2024-12-01 14:43 | XMS_ITS | Encounter Summary ---
Author Organization [facility] Address [address] [address] Phone Care Team Providers Care Customer Support Engineer Name Role Phone Smallwood Brit Wendy HENSON Primary Care Provider [phone] Reason for Visit * Reason Comments Med Refill Encounter Details Date Type Department Care Team (Late Contact Info) Description 11/30/2024 Refill [facility] [address] [place] [phone] Ermias Sandoval MD [address] [phone] Social History Tobacco Use Types [...] Office Visit [facility] [address] [place] [address] Ermias Sandoval MD [address] [phone] documented as of this encounter Visit Diagnoses Not on filedocumented in this encounter Care Teams Customer Support Engineer Relationship Specialty Start Date End Date Brit Smallwood, CARD READER [address] [place] [address] PCP - General Nurse Practitioner 02/13/21 documented as of this encounter
--- OUTSIDE RECORDS SUMMARY | 2024-12-01 14:43 | XMS_ITS | Encounter Summary ---
Author Organization [facility] Address 100 [facility] [address] [place] [address] Phone Care Team Providers Care Botanical Technical Officer Name Role Phone Brit Smallwood [place] Primary Care Provider [phone] Reason for Visit * Reason Comments Med Refill Encounter Details Date Type Department Care Team (Late st Contact Info) Description 12/02/2023 Refill [facility] [address] [place] [phone] Antonio Carter MD 0864 [facility] [address] [place] [phone] Social History Tobacco Use Types Packs/Day Years [...] EST With the assistance of Radha speaking Divehi a call was placed to the patient regarding a medication refill request. The patients stock patcher was informed that in order to refill medications the patient needs a follow up visit. The patient states he will decide if he would like to continue at [facility] or follow his previous Integrative Medicine Physician. He will contact the office with his decision. A 30 day refillis available to the patient. documented in this encounter Plan of Treatment Upcoming Encounters Date Type Department Care Team (Late st Contact Info) Description 02/08/2025 3:00 PM EDT Office Visit [facility] [address] [place] [address] [place] [address] Ermias Sandoval MD 6399 [facility] [address] [place] [address] documented as of this encounter Visit Diagnoses Not on filedocumented in this encounter Care Teams Botanical Technical Officer Relationship Specialty Start Date End Date Brit Smallwood NP [address] [place] [address] PCP - General Nurse Practitioner 02/13/21 documented as of this encounter
== END 2024-12-01 13:49 | disposition home or self-care (01) ==
PROVIDERS: PCP Nurse Practitioner Family; Visit Provider Nurse Practitioner Family
DX: S39.012A Strain of muscle, fascia and tendon of lower back, initial encounter (principal); E11.22 Type 2 diabetes mellitus with diabetic chronic kidney disease; N18.30 Chronic kidney disease, stage 3 unspecified; Z79.4 Long term (current) use of insulin; I10 Essential (primary) hypertension; Z13.9 Encounter for screening, unspecified

== ENCOUNTER 2024-12-08 10:12 | Outpatient (AMB) | payer OTHER, SELFPAY ==
--- NOTE | 2024-12-08 10:14 | MHC.PC.OV ---
Vital Signs 12/08/24 10:22 12/08/24 10:49 Height 5 ft 6 in Weight 170 lb BMI 27.4 BP 152/67 H 120/60 Blood Pressure Location Rt brachial Rt brachial Position Sitting Sitting Respiration 16 Pulse 55 Pulse Source Pulse Oximeter Temp 98.2 F Temp Source Oral Pulse Oximetry (%) 98 Oxygen Delivery Method Room Air Intake Visit Reasons: PE Intake Note: patient here for CPE Wildlife Ecology Professor Required: Yes Wildlife Ecology Professor Language: Municipal Clerk Name: Leo [id number] Information Interpreted: non-clinical & clinical Allergies amlodipine [From NORVAS] Allergy (Severe, Verified 12/08/24 10:39) due to poor renal function ibuprofen Allergy (Severe, Verified 12/08/24 10:39) 2/2 renal function Medication List - Last Reconciled 12/08/24 by Nikki Naik CNP acetaminophen (Tylenol) 325 mg PO QID PRN acetaminophen (Tylenol) 650 mg (2 x 325 mg) PO Q6H PRN 30 days albuterol sulfate 90 mcg/actuation 2 puffs inhalation Q6H PRN MDD 8 apixaban (Eliquis) 5 mg PO BID ascorbic acid (vitamin C) 500 mg PO BID 3 months aspirin 81 mg PO QAM 90 days atorvastatin 80 mg PO BEDTIME 90 days blood sugar diagnostic (FreeStyle Lite Strips) USE TO TEST BLOOD SUGAR FOUR TIMES A DAY blood-glucose meter (FreeStyle Lite Meter kit) As directed brexpiprazole (Rexulti) 2 mg PO DAILY cholecalciferol (vitamin D3) 25 mcg PO DAILY 90 days dextrose (Dex4 Glucose) 15 gm pRN hypoglycemia dulaglutide (Trulicity) 3 mg (0.5 mL) subcut QWEEK empagliflozin (Jardiance) 10 mg PO QAM fluoxetine (Prozac) 40 mg PO DAILY glucose 15 grams PO Q15M PRN hydralazine 50 mg See Protocol PO TID 90 days hydrocortisone 1% 1 appl topical TID PRN insulin degludec (Tresiba FlexTouch U-200 insulin) 46 units (0.23 mL) subcut DAILY 30 days ketoconazole 2% appl topical lactulose (Enulose) 30 mL PO .q72 h PRN lancets (Easy Touch Safety Lancets) USE 2-3 TIMES A DAY DIRECTED FOR BLOOD GLUCOSE MONITORING lorazepam (Ativan) 0.5 mg PO DAILY PRN losartan 75 mg (1.5 x 50 mg) PO BID metoprolol succinate ER 25 mg PO BEDTIME 28 days miscellaneous medical supply R AFO, Daily As directed, 999 days. Disp #1 miscellaneous medical supply Right lateral sole wedge as directed; multivitamin,tx-minerals (Multi-Vitamin HP/Minerals capsule) 1 cap PO DAILY nifedipine ER (Procardia XL) 30 mg PO DAILY 30 days pen needle, diabetic (Easy Touch) 1 ea miscellaneous TID 28 days polyethylene glycol 3350 17 grams PO BID sennosides (senna) 8.6 mg PO BID tamsulosin (Flomax) 0.4 mg PO BEDTIME 90 days trazodone 200 mg PO BEDTIME ursodiol 300 mg PO BID Tobacco use date assessed: 12/08/24 Dental Screening Dental Screen Date: 12/08/24 Did you have a dental visit in the last 12 months?: Yes Did you have a dental problem in the last 6 months where you did not have access to dental care?: No Was dental information given to patient?: Patient has dentist HPI HPI Comments History of Present Illness Details 64-year-old old Croatian-speaking male from a skilled nursing presents for an extended physical exam and review of recent lab results. He is accompanied by a skilled nursing staff/caregiver. He admits to taking his medications as prescribed without adverse reactions. Acute issue(s) - He reports anxiety and depressive symptoms. He notes passive SI. Denied active SI. Denied HI or AVH. He generally sleeps well. Past Medical History - Type 2 diabetes, hypertension, anemia, vitamin-D deficiency, CVA (left upper extremity hemiparesis), squamous cell carcinoma, constipation, CKD, hyperlipidemia, anxiety, and depression Social History - Former smoker. Does not vape. Does not drink alcohol. Denies recreational drug use - Has been making healthy dietary choices.Active but does not exercise. Generally sleep well Health maintenance - Last eye exam a year ago with with [facility]. Encouraged to follow up for diabetic retinal exam. Will request ophthalmology record information from his skilled nursing. - Last dental visit was 4-5 months ago. - Last tetanus vaccine was in 12/11/2019 - Has not been vaccinated for the flu this season; denied flu vaccine today - Unsure if he is vaccinated for shingles and pneumonia. Will request shingles and pneumonia vaccination record or information from his skilled nursing - Unsure of last colonoscopy. 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 Will request Podiatry record or information from his skilled nursing Interpretation by a professional qa developer via electronic tablet. [facility] Medical History Skin lesion Squamous cell carcinoma of skin Encephalopathy Cerebrovascular accident Hypoglycemia unawareness associated with type 2 diabetes mellitus Diabetes type 2, uncontrolled Type 2 diabetes mellitus with diabetic polyneuropathy Essential hypertension Epigastric pain Skin cancer Postoperative bleeding from incision Skin lesion Stroke Type 2 diabetes mellitus with chronic kidney disease Chronic kidney disease, stage 3 Aphagia Unsteady gait Anemia Hypertensive chronic kidney disease with stage 1 through stage 4 chronic kidney disease, or unspecified chronic kidney disease CKD (chronic kidney disease) Hearing loss Preglaucoma Vascular device, implant, or graft complication Bronchitis HTN (hypertension) Hyperlipidemia Hyperlipidemia Vitamin D deficiency Vitamin D deficiency Constipation GERD (gastroesophageal reflux disease) Diabetes Hemiplegia Surgical History History of removal of cyst (~02/09/22) Hx of cataract surgery History of surgical removal of skin lesion History of exploratory laparotomy Family History Father Myocardial infarction Mother Throat cancer Diabetes Family/Other FH: mental illness Brother In good health Sister In good health Sister In good health Daughter In good health Social History 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 Household Members Other:: skilled nursing Housing: House Do you presently have visiting nurse or other home services: Yes Alcohol intake: current Alcohol intake frequency: does not drink Patient Tobacco Use Status: Former Tobacco user Tobacco use type: Cigarette Cigarette Packs Per Day: 2 Cigarettes Per Day: 40.0 Years Smoked: 16 e-Cigarette/Vaping Use: Never Used Second Hand Smoke Exposure: No Substance Use Type: Marijuana Advance Directives Date on File: 07/04/24 service: No Current occupational status: disabled Current occupational exposures/hazards: No Cognitive needs: Yes (walker) Hearing needs: No Vision needs: No Questionnaire PHQ-9 Over the last 2 weeks, how often have you been bothered by any of the following problems? 1. Little interest or pleasure in doing things: nearly every day 2. Feeling down, depressed, or hopeless: nearly every day 3. Trouble falling or staying asleep, or sleeping too much: nearly every day 4. Feeling tired or having little energy: more than half the days 5. Poor appetite or overeating: several days 6. Feeling bad about yourself - or that you are a failure or have let yourself or your family down: more than half the days 7. Trouble concentrating on things, such as reading the newspaper or watching television: several days 8. Moving or speaking so slowly that other people could have noticed. Or the opposite - being so fidgety or restless that you have been moving around a lot more than usual: more than half the days 9. Thoughts that you would be better off or of hurting yourself in some way: more than half the days Total score: 19 Depression Screening Interpretation: Positive Depression Screening Follow-up: Existing condition and In treatment Depression Screening Done: Yes 05373 - PHQ-9 Billing: Yes Source: Developed by Drs. Amari Ortega, Chaparrita Mg, Domingo Cummings and colleagues, with an educational anthony from [employer]. Thrive Questionnaire Date Thrive assessed: 12/08/24 I am a: Patient What is your living situation today?: I have a steady place to live Within the past 12 months, did the food you bought not last and you didn't have the money to get more?: Never true Within the past 12 months, did you worry whether your food would run out before you got money to buy more?: Never true Do you have trouble paying for medicines?: No Do you have trouble getting transportation to medical appointments?: No Do you have trouble paying your heating and electricity bill?: No Do you have trouble taking care of your child, family member or friend?: Yes Do you have trouble with day-to-day activities such as bathing, preparing meals, shopping, managing finances, etc.?: No Are you currently unemployed and looking for a job?: No Are you interested in more education?: No Please select the resources that you would like help with: None Currently or been in a relationship where the following occur: No concerns reported THRIVE Score: 0 AUDIT C Alcohol Use Questionnaire (AUDIT-C) 1. How often do you have a drink containing alcohol?: Never Total Score: 0 PARRISH-7 AMB Questionnaire PARRISH-7 Date PARRISH - 7 assessed: 12/08/24 Feeling nervous, anxious, or on edge: 3 = Nearly every day Not being able to stop or control worryin = Nearly every day Worrying too much about different things: 2 = More than half the days Trouble relaxin = More than half the days Being so restless that it is hard to sit still: 2 = More than half the days Becoming easily annoyed or irritable: 2 = More than half the days Feeling afraid as if something awful might happen: 0 = Not at all Total PARRISH-7 score (0-4 normal; 5-9 mild; 10-14 moderate; 15-21 severe): 14 Source: Developed by Drs. Amari Ortega, Chaparrita Mg, Domingo Cummings and colleagues, with an educational anthony from [employer]. PARRISH-7 Assessment Billing PARRISH-7 Assessment Tool: PARRISH-7 Assessment 56150 Review of Systems Const Details: Denies chills, Denies fatigue, Denies fever(s), Denies headache(s) and Denies weakness HEENT Denies change in vision, Denies dizziness, Denies headache(s), Denies hearing loss, Denies nasal congestion, Denies sinus pain, Denies sinus pressure and Denies sore throat Card Denies chest pain, Denies lightheadedness, Denies dyspnea and Denies other (palpitations) Resp Denies cough, Denies dyspnea and Denies wheezing GI Denies abdominal pain, Denies melena, Denies hematochezia, Denies change in bowel habits, Denies dyspepsia and Denies nausea Denies hematuria and Denies dysuria Musc Reports abnormal gait, Denies myalgias, Denies arthralgias, Denies numbness and Denies tingling Skin/Breast Denies rash, Denies unusual bruising and Denies wounds Neuro Reports abnormal gait, Denies dizziness, Denies headache(s), Denies memory loss, Denies numbness, Denies Sensory deficit (Neuro), Denies tingling and Denies weakness Psych Reports anxiety, Reports depression and Denies memory loss Endo Denies cold intolerance, Denies fatigue, Denies heat intolerance, Denies polydipsia and Denies polyuria Nnamdi/Lymph Denies easy bleeding and Denies easy bruising Aller/Immun Denies wheezing Physical exam (Primary Care) Vital Signs: Last Vital Signs Temp 98.2 F 12/08/24 10:22 Pulse 55 12/08/24 10:22 Resp 16 12/08/24 10:22 BP 120/60 12/08/24 10:49 Pulse Ox 98 12/08/24 10:22 Oxygen Delivery Method Room Air 12/08/24 10:22 BMI result Body Mass Index 27.4 Tobacco/Smoking Status: Tobacco use Status Tobacco use date assessed 12/08/24 12/08/24 10:21 Patient Tobacco Use Status Former Tobacco user 12/08/24 10:16 Tobacco use type Cigarette 12/08/24 10:16 e-Cigarette/Vaping Use Never Used 12/08/24 10:16 PHQ-9: PHQ-9 Score PHQ-9: Total score 19 12/12/24 08:45 Depression Screening Interpretation: Positive Depression Screening Follow-up: Existing condition and In treatment Thrive Assessment: Date of Thrive Assessment Date Thrive assessed 12/08/24 12/08/24 10:21 Currently or been in a relationship where the following occur: No concerns reported Const Other: General: no acute distress, well developed, alert and awake Nutritional Appearance: well nourished Orientation/consciousness: patient oriented x3 HENMT Head: Yes normocephalic and Yes atraumatic Ears: hearing grossly normal bilaterally and TM's normal bilaterally General nose exam: Normal external nose present and Normal nares present Mouth: Normal oral and palatal mucosa present and moist mucous membranes Teeth and gingiva: dentition normal Throat: Yes oropharynx normal Eyes Pupils: Equal, round and reactive pupils present and Pupil accommodation reflex normal EOM: EOMs intact bilaterally Neck Neck: Yes normal visual inspection, Yes no lymphadenopathy and Yes trachea midline Thyroid: Thyroid normal Carotids: no bruits Lymphatic: no lymphadenopathy noted Chest Chest palpation & inspection: normal inspection of the chest Resp Effort & Inspection: normal respiratory effort Auscultation: clear to auscultation bilaterally Cardio Rate: regular rate Rhythm: regular rhythm Heart sounds: S1 normal heart sound present, S2 normal heart sound present, no gallops, no murmurs and no rubs Bruits: no abdominal aortic bruits and no carotid bruits GI Palpation (GI): No Abdominal aortic bruit present, Soft to palpation, nontender, No hepatosplenomegaly present and No Rebound tenderness present Auscultation: normal bowel sounds General: Yes no CVA tenderness Back/Spine/Pelvis Back: no CVA tenderness Cervical Spine: cervical ROM normal and No Cervical spine tenderness Thoracic/Lumbar Spine: thoraco-lumbar ROM normal, No pain with thoraco-lumbar ROM, No thoracic spinal tenderness and No lumbar spinal tenderness Skin General: warm and dry. Normal skin color. Normal skin turgor Lesions: no lesions Rashes: no rashes Trauma: no lacerations or abrasions Wounds: no wounds Nails: normal Neuro General: patient oriented x3, moderate unsteady gait and CN's II-XI intact bilaterally Cranial nerves: Yes Equal, round and reactive pupils present Cognition (Neuro): normal cognition Gait exam (Neuro): Moderate unsteady gait present Motor exam (neuro): 5/5 motor strength present throughout Sensory Exam: No Sensory deficit (Neuro) Deep tendon reflexes (DTR's): Right patellar reflex intensity grade: 2+ and Left patellar reflex intensity grade: 2+ Extrem General: Yes normal to inspection, No edema and No calf tenderness Psych Appearance: grossly normal Affect: normal affect Attitude: cooperative Thought process: Normal thought process present Coding Level of Care Code Est Pt Level 4 (31402) Est Pt Prev Care 40-64y(33693) Diagnoses Encounter for routine adult physical exam with abnormal findings Z00.01 Essential hypertension I10 Hypertension type: essential hypertension Mild chronic anemia D64.9 CKD (chronic kidney disease) stage 4, GFR 15-29 ml/min N18.4 Healthcare maintenance Z00.00 Depression with anxiety F41.8 Type 2 diabetes mellitus with stage 3 chronic kidney disease, with long-term current use of insulin, unspecified whether stage 3a or 3b CKD E11.22; N18.30; Z79.4 Diabetes mellitus type: type 2 Diabetes mellitus director long term care insulin use: with director long term care use Diabetes mellitus complication status: with kidney complications Diabetes mellitus complication detail: with chronic kidney disease Chronic kidney disease stage: stage 3 (moderate) Chronic kidney disease stage 3 subtype: unspecified whether 3a or 3b Additional Codes PARRISH-7 Assessment Billing - PARRISH-7 Assessment Tool: PARRISH-7 Assessment 34878 ([id number]) PHQ-9 - 44747 - PHQ-9 Billing: Yes ([id number]) Assessment & Plan Assessment & Plan (1) Encounter for routine adult physical exam with abnormal findings: Code(s): Z00.01 - Encounter for general adult medical examination with abnormal findings Category: Medical Plan: Significant physical and functional limitations due unsteady gait secondary to stroke. Gait is moderately unsteady using his walker. Encouraged to continue to use walker for ambulation to prevent fall/injury. Verbalized understanding and agreed with the treatment plan. (2) HTN (hypertension): Code(s): I10 - Essential (primary) hypertension Category: Medical Qualifiers: Hypertension type: essential hypertension Qualified Code(s): I10 - Essential (primary) hypertension Plan: Resting blood pressure is 120/60, within goal of less than 130/80. Continue current treatment regimen. Follow-up in 3 months or sooner with symptoms or concerns. Verbalized understanding and agreed with treatment plan. (3) Mild chronic anemia: Code(s): D64.9 - Anemia, unspecified Category: Medical Plan: Recent RBC and H&H are slightly low, 4.22 and 12.5/37.1 respectively. Likely related to anemia of chronic disease such as diabetes and hypertension. Will monitor CBC periodically or with related symptoms or concerns. Verbalized understanding and agreed with treatment plan. (4) CKD (chronic kidney disease) stage 4, GFR 15-29 ml/min: Code(s): N18.4 - Chronic kidney disease, stage 4 (severe) Category: Medical Plan: Recent BUN and creatinine level slightly elevated, 23/1.63 respectively. Adequate hydration encouraged. Followed by [facility] nephrology. (5) Healthcare maintenance: Code(s): Z00.00 - Encounter for general adult medical examination without abnormal findings Category: Medical Plan: Patient and caregiver unsure of shingles and pneumonia vaccine status, unsure of last colonoscopy record or name of provider/practice, unsure of grain scooper name/practice, and also unsure whether the patient still follows Cardiology or other specialists. Patient caregiver advised to research the above information and provide to PCP to update his record or order/refer as needed. PCP will request health maintenance record from the patient's skilled nursing. Patient and caregiver verbalized understanding and agreed with the plan. (6) Depression with anxiety: Code(s): F41.8 - Other specified anxiety disorders Category: Medical Plan: Reports anxiety and depressive symptoms. Positive passive SI. No active SI. No HI or AVH. He generally sleeps well. PHQ-9 and PARRISH-7 scores revealed severe depression and moderate anxiety respectively. Continue current treatment regimen. Routine exercise encouraged. Unsure whether the patient is followed by his psychiatrist. Will research this and make recommendations as needed. Follow-up in 3 months or return sooner with worsening or new symptoms. Verbalized understanding and agreed with treatment plan. (7) Diabetes: Code(s): E11.9 - Type 2 diabetes mellitus without complications Category: Medical Qualifiers: Diabetes mellitus type: type 2 Diabetes mellitus penitentiary insulin use: with director long term care use Diabetes mellitus complication status: with kidney complications Diabetes mellitus complication detail: with chronic kidney disease Chronic kidney disease stage: stage 3 (moderate) Chronic kidney disease stage 3 subtype: unspecified whether 3a or 3b Qualified Code(s): E11.22 - Type 2 diabetes mellitus with diabetic chronic kidney disease; N18.30 - Chronic kidney disease, stage 3 unspecified; 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 Continue current treatment regimen. Follow-up in 3 months. Verbalized understanding and agreed with the plan.
[2024-12-08 10:22] VITALS: BP 152/67; PULSE 55; RESP 16; TEMP 36.8; O2SAT 98; BMI 27.4
[2024-12-08 10:49] VITALS: BP 120/60
--- OUTSIDE RECORDS SUMMARY | 2024-12-08 11:27 | XMS_ITS | Clinical Summary ---
Author Organization [address] [facility] Address [address] [place] [address] Phone Care Team Providers Care Oxyacetylene Cutter Name Role Phone Nikki Naik ASH CONVEYOR OPERATOR Primary Care Provider [phone] Allergies No known active allergies Medications ketoconazole (NIZORAL) 2 % cream Apply topically 1 (one) time each day. Apply topical in the morning time to the bottoms of the feet bilaterally 60 g 2 Active Encounters Date Type Department Care Team Description 09/26/2024 11:30 AM EST Consult Orthopedic Surgery [address] [address] Mao Evans DPM Controlled type [...] Upcoming Encounters Date Type Department Care Team ([facility] st Contact Info) Description 01/11/2025 1:30 PM EDT Office Visit Orthopedic Surgery [address] [place] [phone] Mao Evans, DPM [address] [facility] [address] [place] [address] Health Maintenance Due Date Last Done Comments [...] patient's age to complete this topic Insurance [facility] Care Teams Oxyacetylene Cutter Relationship Specialty Start Date End Date Nikki Naik FNP [address] [place] [address] PCP - General Family Medicine 09/14/24
--- OUTSIDE RECORDS SUMMARY | 2024-12-08 11:27 | XMS_ITS | Encounter Summary ---
Author Organization [facility] Address [address] [facility] [address] [place] [address] Phone Care Team Providers Care Custodian Supervisor Name Role Phone Brit Smallwood MANAGER TREASURY Primary Care Provider [phone] Reason for Visit * Reason Comments Med Refill Encounter Details Date Type Department Care Team (Late st Contact Info) Description 12/09/2023 Refill [facility] [address] [facility] [address] [place] [phone] Antonio Carter MD [address] [address] Social History Tobacco Use Types [...] Visit [facility] [address] [place] [address] Ermias Sandoval MD [address] [address] documented as of this encounter Visit Diagnoses Not on filedocumented in this encounter Care Teams Custodian Supervisor Relationship Specialty Start Date End Date Brit Smallwood NP [address] [place] [id number] PCP - General Nurse Practitioner 02/13/21 documented as of this encounter
--- OUTSIDE RECORDS SUMMARY | 2024-12-08 11:27 | XMS_ITS | Clinical Summary ---
Author Organization [facility] Address [address] [facility] [place] [address] Phone Care Team Providers Care Ink Grinder Name Role Phone Brit Smallwood NP Primary Care Provider [phone] Allergies Active Allergy Reactions Criticality Noted Date [...] Encounters Date Type Department Care Team Description 12/07/2024 Refill [facility] [address] [address] Ermias Sandoval MD 11/30/2024 Refill [facility] [address] [address] Ermias Sandoval MD 11/13/2024 Refill [facility] [address] [address] Ermias Sandoval MD 11/07/2024 Refill [facility] [address] [address] Ermias Sandoval MD 11/01/2024 Refill [facility] [address] [address] Ermias Sandoval MD from Last 3 Months [...] Visit [facility] [address] [place] [address] Ermias Sandoval MD [address] [address] Health Maintenance Due Date Last Done Comments [...] this topic Insurance MEDICAID MEDICAID Care Teams Ink Grinder Relationship Specialty Start Date End Date Brit Smallwood NP [address] [place] [id number] PCP - General Nurse Practitioner 02/13/21
--- OUTSIDE RECORDS SUMMARY | 2024-12-08 11:27 | XMS_ITS | Encounter Summary ---
Author Organization [facility] Address [address] [address] Phone Care Team Providers Care Senior Hr Manager Name Role Phone Smallwood, Sonia Wendy HENSON Primary Care Provider +1- [phone] Reason for Visit * Reason Comments Med Refill Encounter Details Date Type Department Care Team (Late Contact Info) Description 11/01/2024 Refill [facility] [address] [place] [address] Ermias Sandoval MD [address] [address] Social History Tobacco Use Types [...] Office Visit [facility] of [address] [place] [address] Ermias Sandoval MD [address] [address] documented as of this encounter Visit Diagnoses Not on filedocumented in this encounter Care Teams Senior Hr Manager Relationship Specialty Start Date End Date Brit Smallwood, PERFORATOR [address] [place] [address] PCP - General Nurse Practitioner 02/13/21 documented as of this encounter
--- OUTSIDE RECORDS SUMMARY | 2024-12-08 11:27 | XMS_ITS | Encounter Summary ---
Author Organization [facility] Address [address] [address] Phone Care Team Providers Care Pyrotechnician Name Role Phone Smallwood, Sonia Wendy HENSON Primary Care Provider +1- [phone] Reason for Visit * Reason Comments Med Refill Encounter Details Date Type Department Care Team (Late Contact Info) Description 11/13/2024 Refill [facility] [address] [place] [phone] Ermias Sandoval MD [address] [address] Social History Tobacco Use Types [...] Office Visit [facility] of [address] [place] [address] Ermias Sandoval MD [address] [phone] documented as of this encounter Visit Diagnoses Not on filedocumented in this encounter Care Teams Pyrotechnician Relationship Specialty Start Date End Date Brit Smallwood, MARKET RESEARCH INTERN [address] [place] [address] PCP - General Nurse Practitioner 02/13/21 documented as of this encounter
--- OUTSIDE RECORDS SUMMARY | 2024-12-08 11:27 | XMS_ITS | Encounter Summary ---
Author Organization [facility] Address [address] [address] Phone Care Team Providers Care Lpn Home Health Name Role Phone Smallwood, Sonia Wendy HENSON Primary Care Provider [phone]- [phone] Reason for Visit * Reason Comments Med Refill Encounter Details Date Type Department Care Team (Late Contact Info) Description 11/07/2024 Refill [facility] [address] [place] [phone] Ermias Sandoval MD [address] [phone] Social History Tobacco Use Types [...] Office Visit [facility] of [address] [place] [address] Ermias Sandoval MD [address] [phone] documented as of this encounter Visit Diagnoses Not on filedocumented in this encounter Care Teams Lpn Home Health Relationship Specialty Start Date End Date Brit Smallwood, FORMULA WEIGHER [address] [place] [address] PCP - General Nurse Practitioner 02/13/21 documented as of this encounter
--- OUTSIDE RECORDS SUMMARY | 2024-12-08 11:27 | XMS_ITS | Encounter Summary ---
Author Organization [facility] Address [address] [address] Phone Care Team Providers Care Key Account Coordinator Name Role Phone Smallwood, Sonia Wendy HENSON Primary Care Provider [phone]- [phone] Reason for Visit * Reason Comments Med Refill Encounter Details Date Type Department Care Team (Late Contact Info) Description 11/30/2024 Refill [facility] [address] [place] [phone] Ermias Sandoval MD [address] [phone] Social History Tobacco Use Types [...] Visit [facility] of [address] [place] [address] Ermias Sandoval MD [address] [phone] documented as of this encounter Visit Diagnoses Not on filedocumented in this encounter Care Teams Key Account Coordinator Relationship Specialty Start Date End Date Brit Smallwood, OIL SPREADER OPERATOR [address] [place] [address] PCP - General Nurse Practitioner 02/13/21 documented as of this encounter
--- OUTSIDE RECORDS SUMMARY | 2024-12-08 11:27 | XMS_ITS | Encounter Summary ---
Author Organization [facility] Address [address] [address] Phone Care Team Providers Care Dry Wall Applicator Name Role Phone Smallwood, Sonia Wendy HENSON Primary Care Provider [phone]- [phone] Reason for Visit * Reason Comments Med Refill Encounter Details Date Type Department Care Team (Late Contact Info) Description 12/07/2024 Refill [facility] [address] [place] [phone] Ermias Sandoval MD [address] [phone] Social History Tobacco Use Types [...] Visit [facility] of [address] [place] [address] Ermias Sandoval MD [address] [phone] documented as of this encounter Visit Diagnoses Not on filedocumented in this encounter Care Teams Dry Wall Applicator Relationship Specialty Start Date End Date Brit Smallwood, BRUSHER HAND [address] [place] [address] PCP - General Nurse Practitioner 02/13/21 documented as of this encounter
--- OUTSIDE RECORDS SUMMARY | 2024-12-08 11:27 | XMS_ITS | Encounter Summary ---
Author Organization [facility] [place] Address [address] [facility] [address] [place] [address] Phone Care Team Providers Care Greenhouse Assistant Name Role Phone Brit Smallwood [place] Primary Care Provider +1 [phone] Reason for Visit * Reason Comments Med Refill Encounter Details Date Type Department Care Team (Late st Contact Info) Description 12/02/2023 Refill [facility] [place] [address] [facility] [address] [place] [phone] Antonio Carter MD 4214 [facility] [address] [place] [phone] Social History Tobacco Use Types Packs/Day Years [...] EST With the assistance of Radha speaking Italian a call was placed to the patient regarding a medication refill request. The patients clerical supervisor was informed that in order to refill medications the patient needs a follow up visit. The patient states he will decide if he would like to continue at [facility] or follow his previous Dietary Worker. He will contact the office with his decision. A 30 day refillis available to the patient. documented in this encounter Plan of Treatment Upcoming Encounters Date Type Department Care Team (Late st Contact Info) Description 02/08/2025 3:00 PM EDT Office Visit [facility] the [address] [place] [address] [place] [address] Ermias Sandoval MD 4865 [facility] [address] [place] [address] documented as of this encounter Visit Diagnoses Not on filedocumented in this encounter Care Teams Greenhouse Assistant Relationship Specialty Start Date End Date Brit Smallwood NP [address] [place] [phone] PCP - General Nurse Practitioner 02/13/21 documented as of this encounter
== END 2024-12-08 11:21 | disposition home or self-care (01) ==
PROVIDERS: PCP Nurse Practitioner Family; Visit Provider Nurse Practitioner Family
DX: Z00.00 Encounter for general adult medical examination without abnormal findings (principal); I12.9 Hypertensive chronic kidney disease with stage 1 through stage 4 chronic kidney disease, or unspecified chronic kidney disease; N18.4 Chronic kidney disease, stage 4 (severe); E11.22 Type 2 diabetes mellitus with diabetic chronic kidney disease; Z79.4 Long term (current) use of insulin; D64.9 Anemia, unspecified; F41.8 Other specified anxiety disorders

== ENCOUNTER → 2024-12-08 10:12 | Outpatient (BNVA) | payer OTHER, SELFPAY | PROVIDERS: PCP Nurse Practitioner Family; Visit Provider Nurse Practitioner Family | DX: Z00.01 Encounter for general adult medical examination with abnormal findings (principal); D64.9 Anemia, unspecified; I12.9 Hypertensive chronic kidney disease with stage 1 through stage 4 chronic kidney disease, or unspecified chronic kidney disease; E11.22 Type 2 diabetes mellitus with diabetic chronic kidney disease; N18.4 Chronic kidney disease, stage 4 (severe); F41.8 Other specified anxiety disorders; Z79.4 Long term (current) use of insulin | CPT/HCPCS: 96127; 99212; 99396 ==

== ENCOUNTER → 2025-01-12 23:59 | Outpatient (BNV) | payer OTHER, SELFPAY | PROVIDERS: PCP Nurse Practitioner Family; Visit Provider Nurse Practitioner Family | DX: I12.9 Hypertensive chronic kidney disease with stage 1 through stage 4 chronic kidney disease, or unspecified chronic kidney disease (principal); G81.91 Hemiplegia, unspecified affecting right dominant side; N18.9 Chronic kidney disease, unspecified; I67.9 Cerebrovascular disease, unspecified | CPT/HCPCS: G0179 ==

== ENCOUNTER 2025-01-25 11:49 | Outpatient (AMB) | payer OTHER, SELFPAY ==
[2025-01-25 11:42] VITALS: BP 126/72; PULSE 64; O2SAT 98; BMI 27.7
--- NOTE | 2025-01-25 11:42 | HO.NEPHOV ---
Vital Signs 01/25/25 11:42 Height 5 ft 6 in Weight 171 lb 8 oz BMI 27.7 BP 126/72 Blood Pressure Location Rt brachial Position Sitting Pulse 64 Pulse Source Pulse Oximeter Pulse Oximetry (%) 98 Oxygen Delivery Method Room Air Intake Visit Reasons: CKD/ LVM Insurance Customer Service Specialist Name: Angelica([phone]) Allergies amlodipine [From NORVAS] Allergy (Severe, Verified 01/25/25 11:46) due to poor renal function ibuprofen Allergy (Severe, Verified 01/25/25 11:46) 2/2 renal function Medication List - Last Reconciled 01/25/25 by Dileep Byers MD acetaminophen (Tylenol) 325 mg PO QID PRN acetaminophen (Tylenol) 650 mg (2 x 325 mg) PO Q6H PRN 30 days albuterol sulfate 90 mcg/actuation 2 puffs inhalation Q6H PRN MDD 8 apixaban (Eliquis) 5 mg PO BID ascorbic acid (vitamin C) 500 mg PO BID 3 months aspirin 81 mg PO QAM 90 days atorvastatin 80 mg PO BEDTIME 90 days blood sugar diagnostic (FreeStyle Lite Strips) USE TO TEST BLOOD SUGAR FOUR TIMES A DAY blood-glucose meter (FreeStyle Lite Meter kit) As directed brexpiprazole (Rexulti) 2 mg PO DAILY cholecalciferol (vitamin D3) 25 mcg PO DAILY 90 days dextrose (Dex4 Glucose) 15 gm pRN hypoglycemia dulaglutide (Trulicity) 3 mg (0.5 mL) subcut QWEEK empagliflozin (Jardiance) 10 mg PO QAM fluoxetine (Prozac) 40 mg PO DAILY glucose 15 grams PO Q15M PRN hydralazine 50 mg See Protocol PO TID 90 days hydrocortisone 1% 1 appl topical TID PRN insulin degludec (Tresiba FlexTouch U-200 insulin) 46 units (0.23 mL) subcut DAILY 30 days ketoconazole 2% appl topical lactulose (Enulose) 30 mL PO .q72 h PRN lancets (Easy Touch Safety Lancets) USE 2-3 TIMES A DAY DIRECTED FOR BLOOD GLUCOSE MONITORING lorazepam (Ativan) 0.5 mg PO DAILY PRN losartan 75 mg (1.5 x 50 mg) PO BID metoprolol succinate ER 25 mg PO BEDTIME 28 days miscellaneous medical supply R AFO, Daily As directed, 999 days. Disp #1 miscellaneous medical supply Right lateral sole wedge as directed; multivitamin,tx-minerals (Multi-Vitamin HP/Minerals capsule) 1 cap PO DAILY nifedipine ER (Procardia XL) 30 mg PO DAILY 30 days pen needle, diabetic (Easy Touch) 1 ea miscellaneous TID 28 days polyethylene glycol 3350 17 grams PO BID sennosides (senna) 8.6 mg PO BID tamsulosin (Flomax) 0.4 mg PO BEDTIME 90 days trazodone 200 mg PO BEDTIME ursodiol 300 mg PO BID HPI Comments Details: Middle aged man with a history of CKD and hypertension. Here for follow-up. Today he has no specific complaints today. Accompanied by caregiver. Insurance Customer Service Specialist service was used ON LICENSE OF [facility] Medical History Skin lesion Squamous cell carcinoma of skin Encephalopathy Cerebrovascular accident Hypoglycemia unawareness associated with type 2 diabetes mellitus Diabetes type 2, uncontrolled Type 2 diabetes mellitus with diabetic polyneuropathy Essential hypertension Epigastric pain Skin cancer Postoperative bleeding from incision Skin lesion Stroke Type 2 diabetes mellitus with chronic kidney disease Chronic kidney disease, stage 3 Aphagia Unsteady gait Anemia Hypertensive chronic kidney disease with stage 1 through stage 4 chronic kidney disease, or unspecified chronic kidney disease CKD (chronic kidney disease) Hearing loss Preglaucoma Vascular device, implant, or graft complication Bronchitis HTN (hypertension) Hyperlipidemia Hyperlipidemia Vitamin D deficiency Vitamin D deficiency Constipation GERD (gastroesophageal reflux disease) Diabetes Hemiplegia Surgical History History of removal of cyst (~02/09/22) Hx of cataract surgery History of surgical removal of skin lesion History of exploratory laparotomy Family History Father Myocardial infarction Mother Throat cancer Diabetes Family/Other FH: mental illness Brother In good health Sister In good health Sister In good health Daughter In good health Social History 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 Household Members Other:: intermediate Housing: House Do you presently have visiting nurse or other home services: Yes Alcohol intake: current Alcohol intake frequency: does not drink Patient Tobacco Use Status: Former Tobacco user Tobacco use type: Cigarette Cigarette Packs Per Day: 2 Cigarettes Per Day: 40.0 Years Smoked: 16 e-Cigarette/Vaping Use: Never Used Second Hand Smoke Exposure: No Substance Use Type: Marijuana Advance Directives Date on File: 07/04/24 service: No Current occupational status: disabled Current occupational exposures/hazards: No Cognitive needs: Yes (walker) Hearing needs: No Vision needs: No Physical Exam Vital Signs: Last Vital Signs Pulse 64 01/25/25 11:42 BP 126/72 01/25/25 11:42 Pulse Ox 98 01/25/25 11:42 Oxygen Delivery Method Room Air 01/25/25 11:42 BMI result Body Mass Index 27.7 Awake. Comfortable. Neck is supple. Mucosa moist. Lungs bilateral scattered rhonchi. Heart S1-S2 heard no gallop. Abdomen soft. Extremities no edema. No involuntary movements. No myoclonus. Results Reviewed Nephrology Results: Hgb 12.5 g/dl (14.0-18.0) L 12/01/24 WBC 8.9 X10*3/uL (4.8-10.8) 12/01/24 Plt Count 195 X10*3/uL (160-400) 12/01/24 Sodium 143 mmol/L (135-145) 12/01/24 Potassium 4.4 mmol/L (3.3-5.1) 12/01/24 Chloride 112 mmol/L (96-108) H 12/01/24 Carbon Dioxide 24 mmol/L (22-29) 12/01/24 BUN 23 mg/dL (9-16) H 12/01/24 Creatinine 1.63 mg/dL (0.5-1.4) H 12/01/24 Calcium 9.3 mg/dL (8.4-10.2) 12/01/24 Urine Protein 100 (2+) mg/dL (Neg-Trace) H 12/01/24 Assessment & Plan Assessment & Plan (1) CKD (chronic kidney disease) stage 4, GFR 15-29 ml/min: Code(s): N18.4 - Chronic kidney disease, stage 4 (severe) Category: Medical (2) Chronic kidney disease, stage 3: Code(s): N18.30 - Chronic kidney disease, stage 3 unspecified Category: Medical Qualifiers: Chronic kidney disease stage 3 subtype: stage 3a (GFR 45-59) Qualified Code(s): N18.31 - Chronic kidney disease, stage 3a Plan 64-year-old man with CKD setting of hypertension. Renal function has improved Goal is to slow the progression of renal disease. Continue to avoid nephrotoxic agents. Keep on losartan for renal protection in view of microalbuminuria. Agree with SGLT inhibitor Blood pressure is well controlled No changes were made to his antihypertensive regimen. He should stay on low-sodium diet. Orders: Orders Complete Blood Count no Diff 4 Months N18.4 - Chronic kidney disease, stage 4 (severe) Basic Metabolic Panel 4 Months N18.4 - Chronic kidney disease, stage 4 (severe) Coding Level of Care Code Est Pt Level 4 (82229) Diagnoses CKD (chronic kidney disease) stage 4, GFR 15-29 ml/min N18.4 Stage 3a chronic kidney disease N18.31 Chronic kidney disease stage 3 subtype: stage 3a (GFR 45-59)
--- OUTSIDE RECORDS SUMMARY | 2025-01-25 14:09 | XMS_ITS | Encounter Summary ---
Author Organization [facility] Address [address] [address] Phone Care Team Providers Care Shipping Lead Name Role Phone Smallwood, Sonia Wendy HENSON Primary Care Provider [phone]- [phone] Reason for Visit * Reason Comments Med Refill Encounter Details Date Type Department Care Team (Late Contact Info) Description 11/07/2024 Refill [facility] [address] [place] [address] Ermias Sandoval MD [address] [address] Social History Tobacco Use Types [...] Office Visit [facility] of [address] [place] [address] Ermias Sandoval MD [address] [address] documented as of this encounter Visit Diagnoses Not on filedocumented in this encounter Care Teams Shipping Lead Relationship Specialty Start Date End Date Brit Smallwood, DRILL SETUP OPERATOR [address] [place] [address] PCP - General Nurse Practitioner 02/13/21 documented as of this encounter
--- OUTSIDE RECORDS SUMMARY | 2025-01-25 14:09 | XMS_ITS | Encounter Summary ---
Author Organization [facility] [place] Address 100 [facility] [address] [place] [address] Phone Care Team Providers Care Plastics Fabricator And Assembler Name Role Phone Brit Smallwood [place] Primary Care Provider +1 [phone] Reason for Visit * Reason Comments Med Refill Encounter Details Date Type Department Care Team (Late st Contact Info) Description 12/02/2023 Refill [facility] [address] [facility] [address] [place] [phone] Antonio Carter MD 5966 [facility] [address] [place] [phone] Social History Tobacco Use Types Packs/Day Years [...] EST With the assistance of Radha speaking Nigerian a call was placed to the patient regarding a medication refill request. The patients director of strategic sales was informed that in order to refill medications the patient needs a follow up visit. The patient states he will decide if he would like to continue at [facility] or follow his previous Law Enforcement Instructor. He will contact the office with his decision. A 30 day refillis available to the patient. documented in this encounter Plan of Treatment Upcoming Encounters Date Type Department Care Team (Late st Contact Info) Description 02/08/2025 3:00 PM EDT Office Visit [facility] the [address] [place] [address] [place] [address] Ermias Sandoval MD 0698 [facility] [address] [place] [address] documented as of this encounter Visit Diagnoses Not on filedocumented in this encounter Care Teams Plastics Fabricator And Assembler Relationship Specialty Start Date End Date Brit Smallwood NP [address] [place] [address] PCP - General Nurse Practitioner 02/13/21 documented as of this encounter
--- OUTSIDE RECORDS SUMMARY | 2025-01-25 14:09 | XMS_ITS | Clinical Summary ---
Author Organization 175 [facility] Address 175 [place] [address] Phone Care Team Providers Care Hat Renovator Name Role Phone Nikki Naik OPERATIONS MANAGEMENT TRAINEE Primary Care Provider Allergies No known active allergies Medications ketoconazole (NIZORAL) 2 % cream Apply topically 1 (one) time each day. Apply topical in the morning time to the bottoms of the feet bilaterally 60 g 2 Active Encounters Date Type Department Care Team Description 01/11/2025 1:30 PM EDT Office Visit Orthopedic Surgery [facility] [address] [facility] [address] [place] [address] Mao Evans DPM Controlled type 2 diabetes with neuropathy (CMS/HCC V24, CMS/HCC V28) (Primary Dx); Arthritis of both feet; Hammertoes [...] - - Weight 79.4 kg (175 lb) 01/11/2025 1:46 PM EDT Height 172.7 cm (5' 8 ) 09/26/2024 11:55 AM EST Body Mass Index 26.61 09/26/2024 11:55 AM EST Plan of Treatment Upcoming Encounters Date Type Department Care Team ([facility] st Contact Info) Description 04/12/2025 10:45 AM EDT Office Visit Orthopedic Surgery [place] 250 175 [facility] 250 [place] [phone] Mao Evans, ETHAN 175 [facility] 250 [place] [address] Health Maintenance Due Date Last Done Comments [...] 2 - PCV) 12/10/2020 12/11/2019 RSV Immunization Adult Patients (1 - Risk 60-74 years 1-dose series) 2022 COVID-19 Vaccine (3 - Pfizer risk series) 10/15/2022 09/17/2022, 11/17/2021 Cholesterol Screening (Lipid Panel) 09/14/2024 Colorectal Cancer Screening: Colonoscopy 09/14/2024 Depression Screening 09/14/2024 HIV Screening 09/14/2024 Hepatitis C Screening 09/14/2024 Social Influencers of Health Screening 09/14/2024 Hypertension/CHF/CAD Annual BMP Blood Test 09/26/2024 Diabetes: Annual Urine Albumin-Creatinine Ratio (uACR) 01/11/2025 Diabetes: Blood Sugar Contro l Test (HGBA1C) 01/11/2025 Influenza Vaccine (Season Ended) 2025 12/07/2023, 09/17/2022, 12/26/2019 DTaP,Tdap,and Td Vaccines (2 - Td or [...] age to complete this topic Meningococcal B Vaccine Aged Out No l onger eligible based on patient's age to complete this topic RSV Immunization Patients Under 20 months Aged Out No longer eligible b ased on patient's age to complete this topic Varicella Vaccines Aged Out No longer eligible based on patient's age to complete this topic Insurance [facility] [place] [address] Care Teams Hat Renovator Relationship Specialty Start Date End Date Nikki Naik FNP [address] [place] [address] PCP - General Family Medicine 09/14/24
--- OUTSIDE RECORDS SUMMARY | 2025-01-25 14:09 | XMS_ITS | Encounter Summary ---
Author Organization [facility] Address [address] [address] Phone Care Team Providers Care Precinct Commanding Officer Name Role Phone Smallwood, Sonia Wendy HENSON Primary Care Provider [phone]- [phone] Reason for Visit * Reason Comments Med Refill Encounter Details Date Type Department Care Team (Late Contact Info) Description 11/30/2024 Refill [facility] [address] [place] [address] Ermias Sandoval MD [address] [address] Social History Tobacco Use Types [...] Office Visit [facility] of [address] [place] [address] Ermias Sandoval MD [address] [address] documented as of this encounter Visit Diagnoses Not on filedocumented in this encounter Care Teams Precinct Commanding Officer Relationship Specialty Start Date End Date Brit Smallwood, DELPHI DEVELOPER [address] [place] [phone] PCP - General Nurse Practitioner 02/13/21 documented as of this encounter
--- OUTSIDE RECORDS SUMMARY | 2025-01-25 14:09 | XMS_ITS | Clinical Summary ---
Author Organization [facility] Address [address] [facility] [place] [address] Phone Care Team Providers Care Canvas Worker Name Role Phone Brit Smallwood NP Primary Care Provider [phone]- [phone] Allergies Active Allergy Reactions Criticality Noted Date [...] tablet 5 Active hydrALAZINE 50 MG tablet TAKE 1 TABLET BY MOUTH 3 TIMES DAILY IN THE MORNING, EVENING, AND BEDTIME 90 tablet 5 025 Discontinued hydrALAZINE 50 MG tablet TAKE 1 TABLET BY MOUTH 3 TIMES DAILY IN THE MORNING, EVENING, AND BEDTIME 90 tablet 5 025 Discontinued Active Problems Problem Noted Date Diagnosed Date Acute nontraumatic kidney injury 11/20/2020 Anemia of chronic renal failure 11/20/2020 Essential hypertension 11/20/2020 Hypertensive renal disease 11/20/2020 Resolved Problems Problem Noted Date Diagnosed Date Resolved Date Chronic kidney disease stage 3 11/20/2020 02/13/2021 Encounters Date Type Department Care Team Description 01/23/2025 Refill [facility] [address] [address] Ermias Sandoval MD 12/28/2024 Refill [facility] [address] [address] Ermias Sandoval MD 12/12/2024 Refill [facility] [address] [address] Ermias Sandoval MD 12/07/2024 Refill [facility] [address] [address] Ermias Sandoval MD 11/30/2024 Refill [facility] [address] [address] Ermias Sandoval MD 11/13/2024 Refill [facility] [address] [address] Ermias Sandoval MD 11/07/2024 Refill [facility] [address] [address] Ermias Sandoval MD 11/01/2024 Refill [facility] [address] [address] Ermias Sandoval MD from Last 3 Months [...] Visit [facility] the [address] [place] [address] [place] [address] Ermias Sandoval MD [address] [facility] [address] [place] [phone] Health Maintenance Due Date Last Done Comments Pneumococcal Vaccine: 50+ Ye ars (1 of 2 - PCV) 1981 Colorectal Cancer Screening: Annual FOBT 2011 Colorectal Cancer Screening: Colonoscopy 2011 Colorectal Cancer Screening: Sigmoidoscopy 2011 Diabetes: Hemoglobin A1C 11/01/2024 Diabetes: Ophthalmology Exam 11/01/2024 Diabetes: Pedal Pulse Checked 11/01/2024 Diabetes: Sensory Foot Exam 11/01/2024 Diabetes: Visual Foot Exam 11/01/2024 Influenza Vaccine (Season Ended) 2025 Hepatitis B Vaccine Aged Out No longe r eligible based on patient's age to complete this topic Insurance [facility] [place] [address] Medicaid Care Teams Canvas Worker Relationship Specialty Start Date End Date Brit Smallwood NP [address] [place] [phone] PCP - General Nurse Practitioner 02/13/21
--- OUTSIDE RECORDS SUMMARY | 2025-01-25 14:09 | XMS_ITS | Encounter Summary ---
Author Organization [facility] Address [address] [address] Phone Care Team Providers Care Route Delivery Service Driver Name Role Phone Smallwood, Sonia Wendy HENSON Primary Care Provider [phone]- [phone] Reason for Visit * Reason Comments Med Refill Encounter Details Date Type Department Care Team (Late Contact Info) Description 01/23/2025 [facility]ill [facility] [address] [place] [address] Ermias Sandoval MD [address] [address] Social History Tobacco Use Types [...] Office Visit [facility] [place] [address] [place] [address] Ermias Sandoval MD [address] [address] documented as of this encounter Visit Diagnoses Not on filedocumented in this encounter Care Teams Route Delivery Service Driver Relationship Specialty Start Date End Date Brit Smallwood, SALES REPRESENTATIVE [employer] [address] [place] [address] PCP - General Nurse Practitioner 02/13/21 documented as of this encounter
--- OUTSIDE RECORDS SUMMARY | 2025-01-25 14:09 | XMS_ITS | Encounter Summary ---
Author Organization [facility] Address [address] [address] Phone Care Team Providers Care Marine Railway Operator Name Role Phone Smallwood, Sonia Wendy HENSON Primary Care Provider [phone]- [phone] Reason for Visit * Reason Comments Med Refill Encounter Details Date Type Department Care Team (Late Contact Info) Description 12/07/2024 Refill [facility] [address] [place] [address] Ermias Sandoval MD [address] [address] Social History Tobacco Use [...] Office Visit [facility] of [address] [place] [address] Ermias Sandoval MD [address] [address] documented as of this encounter Visit Diagnoses Not on filedocumented in this encounter Care Teams Marine Railway Operator Relationship Specialty Start Date End Date Brit Smallwood, PARTS FABRICATOR [address] [place] [address] PCP - General Nurse Practitioner 02/13/21 documented as of this encounter
--- OUTSIDE RECORDS SUMMARY | 2025-01-25 14:09 | XMS_ITS | Encounter Summary ---
Author Organization [facility] Address [address] [address] Phone Care Team Providers Care Navigation Teacher Name Role Phone Smallwood, Sonia Wendy HENSON Primary Care Provider [phone]- [phone] Reason for Visit * Reason Comments Med Refill Encounter Details Date Type Department Care Team (Late Contact Info) Description 11/01/2024 Refill [facility] [address] [place] [phone] Ermias Sandoval MD [address] [address] Social History Tobacco Use Types [...] Office Visit [facility] [address] [place] [address] Ermias Sandoval MD [address] [address] documented as of this encounter Visit Diagnoses Not on filedocumented in this encounter Care Teams Navigation Teacher Relationship Specialty Start Date End Date Brit Smallwood, LABORATORY VETERINARIAN [address] [place] [address] PCP - General Nurse Practitioner 02/13/21 documented as of this encounter
--- OUTSIDE RECORDS SUMMARY | 2025-01-25 14:09 | XMS_ITS | Encounter Summary ---
Author Organization [facility] Address [facility] [address] [place] [address] Phone Care Team Providers Care Pulmonary Nurse Practitioner Name Role Phone Brit Smallwood ARCHITECTURAL SUPERINTENDENT Primary Care Provider [phone] Reason for Visit * Reason Comments Med Refill Encounter Details Date Type Department Care Team (Late st Contact Info) Description 12/09/2023 Refill [facility] [address] [place] [phone] Antonio Carter MD [address] [phone] Social History Tobacco Use Types [...] Visit [facility] the [address] [place] [address] Ermias Sandoval MD [address] [address] documented as of this encounter Visit Diagnoses Not on filedocumented in this encounter Care Teams Pulmonary Nurse Practitioner Relationship Specialty Start Date End Date Brit Smallwood NP [address] [place] [id number] PCP - General Nurse Practitioner 02/13/21 documented as of this encounter
== END 2025-01-25 11:56 | disposition home or self-care (01) ==
LOC: HO.HKA 11:49
PROVIDERS: PCP Nurse Practitioner Family; Visit Provider Internal Medicine Hypertension Specialist
DX: N18.4 Chronic kidney disease, stage 4 (severe) (principal); N18.31 Chronic kidney disease, stage 3a
CPT/HCPCS: 99214

== ENCOUNTER → 2025-01-25 11:49 | Outpatient (BNVA) | payer OTHER, SELFPAY | PROVIDERS: PCP Nurse Practitioner Family; Visit Provider Internal Medicine Hypertension Specialist | DX: I12.9 Hypertensive chronic kidney disease with stage 1 through stage 4 chronic kidney disease, or unspecified chronic kidney disease (principal); N18.4 Chronic kidney disease, stage 4 (severe) | CPT/HCPCS: 99212 ==

== ENCOUNTER 2025-01-27 21:38 | Emergency (ER) | payer OTHER, SELFPAY ==
--- NOTE | ~2025-01-27 | CT_ITS ---
CLINICAL HISTORY: Occipital BETANCOURT CT head without contrast Comparison: CT/SR - CT HEAD/BRAIN WO IV CON - 09/23/24 23:30 EST Findings: No intracranial mass, midline shift, hydrocephalus, or acute hemorrhage. There is generalized cerebral volume loss. Right parieto-occipital and left frontoparietal encephalomalacia present. Minimal mucosal thickening present at the right posterior ethmoid air cells. The bilateral mastoid air cells appear clear. No acute skull fracture. Impression: 1. No acute intracranial abnormality. No acute intracranial hemorrhage. This document has been electronically signed by: Nicholas Green MD on 01/27/2025 23:19:51
[2025-01-27 21:42] VITALS: BP 138/60; PULSE 68; O2SAT 98
[2025-01-27 21:44] VITALS: BP 118/47; PULSE 62; RESP 16; TEMP 36.6; O2SAT 95; BMI 26.1
--- NOTE | 2025-01-27 22:10 | ED_ITS ---
HPI - General Adult General Chief complaint: Headache Stated complaint: chest pain Time Seen by Provider: 01/27/25 21:57 History of Present Illness ED Provider: Dr. Zheng HPI narrative: 64 y/o M patient; PMH CKD, obesity, GERD, T2DM, HTN, HLD, CVA with left-sided mild hemiplegia; presents via EMS from skilled nursing with concern for occipital headache that began 2 hours prior to arrival and low blood pressure readings today. The patient did not take analgesia prior to arrival. The patient denies: fever or chills, nausea/vomiting, abdominal pain, chest pain, shortness of breath. Related Data Home Medications ?Medication ?Instructions ?Recorded ?Confirmed lorazepam 0.5 mg tablet (Ativan) 0.5 mg PO DAILY PRN Anxiety 07/24/20 01/25/25 glucose 5 % oral solution 15 g PO Q15M PRN hypoglycemia 12/28/22 01/25/25 blood-glucose meter (FreeStyle 05/17/23 01/25/25 Lite Meter kit) fluoxetine 40 mg capsule (Prozac) 40 mg PO DAILY 01/27/24 01/25/25 brexpiprazole 2 mg tablet (Rexulti) 2 mg PO DAILY 12/01/24 01/25/25 ketoconazole 2 % topical cream appl topical 12/01/24 01/25/25 trazodone 100 mg tablet 200 mg PO BEDTIME 12/01/24 01/25/25 Previous Rx's ?Medication ?Instructions ?Recorded miscellaneous medical supply #1 ea 07/11/21 miscellaneous medical supply See Rx Instructions miscellaneous 05/14/22 .COMPLEX #1 ea hydralazine 50 mg tablet 50 mg PO TID 90 days #270 tabs 11/05/22 lancets 26 gauge (Easy Touch #100 ea 08/09/23 Safety Lancets) dextrose 15 gram/33 gram oral gel See Rx Instructions PO .COMPLEX 12/31/23 packet (Dex4 Glucose) #198 grams blood sugar diagnostic (FreeStyle #100 ea 02/22/24 Lite Strips) pen needle, diabetic 31 gauge x 1 ea miscellaneous TID 28 days #84 02/22/24 5/16 (Easy Touch) ea apixaban 5 mg tablet (Eliquis) 5 mg PO BID #56 tabs 08/01/24 metoprolol succinate 25 mg 25 mg PO BEDTIME 28 days #28 tabs 05/04/24 tablet,extended release 24 hr sennosides 8.6 mg tablet (senna) 8.6 mg PO BID #56 tabs 05/04/24 ursodiol 300 mg capsule 300 mg PO BID #56 caps 05/04/24 hydrocortisone 1 % topical cream 1 appl topical TID PRN skin 05/22/24 irritation #28.35 grams albuterol sulfate 90 mcg/actuation 2 puff inhalation Q6H PRN 06/08/24 aerosol inhaler shortness of breath or wheezing #8.5 grams insulin degludec 200 unit/mL (3 46 unit (0.23 mL) subcut DAILY 30 07/17/24 mL) subcutaneous pen ( #6.9 mL FlexTouch U-200 insulin) acetaminophen 325 mg tablet 650 mg (2 x 325 mg) PO Q6H PRN 08/02/24 (Tylenol) temp, headache or general discomfort 30 days #120 tabs multivitamin,tx-minerals 1 cap PO DAILY #90 caps 09/18/24 (Multi-Vitamin HP/Minerals capsule) dulaglutide 3 mg/0.5 mL 3 mg (0.5 mL) subcut QWEEK #2 mL 10/11/24 subcutaneous pen injector ([facility]) cholecalciferol (vitamin D3) 25 25 mcg PO DAILY 90 days #90 tabs 10/23/24 mcg (1,000 unit) tablet ascorbic acid (vitamin C) 500 mg 500 mg PO BID 3 months #180 tabs 11/07/24 tablet aspirin 81 mg tablet,delayed 81 mg PO QAM 90 days #90 tabs 11/07/24 release atorvastatin 80 mg tablet 80 mg PO BEDTIME 90 days #90 tabs 11/07/24 empagliflozin 10 mg tablet 10 mg PO QAM #28 tabs 11/07/24 (Jardiance) tamsulosin 0.4 mg capsule (Flomax) 0.4 mg PO BEDTIME 90 days #90 caps 11/07/24 losartan 50 mg tablet 75 mg (1.5 x 50 mg) PO BID #84 tabs 11/08/24 lactulose 10 gram/15 mL oral 30 ml PO .q72 h PRN constipation 11/13/24 solution (Enulose) #473 mL acetaminophen 325 mg tablet 325 mg PO QID PRN pain #20 tabs 12/01/24 (Tylenol) nifedipine 30 mg tablet,extended 30 mg PO DAILY 30 days #30 tabs 01/08/25 release 24 hr (Procardia XL) polyethylene glycol 3350 17 17 g PO BID #1,020 grams 01/08/25 gram/dose oral powder Allergies Allergy/AdvReac Type Severity Reaction Status Date / Time amlodipine [From [facility]] Allergy Severe due to Verified 01/27/25 21:44 poor renal function ibuprofen Allergy Severe 2/2 renal Verified 01/27/25 21:44 function Review of Systems 2 Review of Systems: Yes all other systems are reviewed and are negative Neurologic: Denies Abnormal speech present and Denies Sensory deficit (Neuro) [facility] Past Medical History Attestation statement: The following information was validated with the patient. Source: old records reviewed Medical History Skin lesion Squamous cell carcinoma of skin Encephalopathy Cerebrovascular accident Hypoglycemia unawareness associated with type 2 diabetes mellitus Diabetes type 2, uncontrolled Type 2 diabetes mellitus with diabetic polyneuropathy Essential hypertension Epigastric pain Skin cancer Postoperative bleeding from incision Skin lesion Stroke Type 2 diabetes mellitus with chronic kidney disease Chronic kidney disease, stage 3 Aphagia Unsteady gait Anemia Hypertensive chronic kidney disease with stage 1 through stage 4 chronic kidney disease, or unspecified chronic kidney disease CKD (chronic kidney disease) Hearing loss Preglaucoma Vascular device, implant, or graft complication Bronchitis HTN (hypertension) Hyperlipidemia Hyperlipidemia Vitamin D deficiency Vitamin D deficiency Constipation GERD (gastroesophageal reflux disease) Diabetes Hemiplegia Surgical History History of removal of cyst (~02/09/22) Hx of cataract surgery History of surgical removal of skin lesion History of exploratory laparotomy Family History Family History Father Myocardial infarction Mother Throat cancer Diabetes Family/Other FH: mental illness Brother In good health Sister In good health Sister In good health Daughter In good health Social History Social History 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 Household Members Other:: skilled nursing Housing: House Do you presently have visiting nurse or other home services: Yes Alcohol intake: current Alcohol intake frequency: does not drink Patient Tobacco Use Status: Former Tobacco user Tobacco use type: Cigarette Cigarette Packs Per Day: 2 Cigarettes Per Day: 40.0 Years Smoked: 16 Smoked in Last 30 Days: No e-Cigarette/Vaping Use: Never Used Second Hand Smoke Exposure: No Use of substances other than those prescribed or required for medical reasons: No Substance Use Type: Marijuana Advance Directives: Yes Advance Directives Information Provided: Yes Advance Directives on File: No Advance Directives Date on File: 07/04/24 service: No Current occupational status: disabled Current occupational exposures/hazards: No Cognitive needs: Yes (walker) Hearing needs: No Vision needs: No Physical Exam ED Vital Signs: Vital Signs - 24 hr 01/27/25 21:44 01/27/25 22:47 Temperature 97.9 F 97.8 F Pulse Rate 62 56 Respiratory Rate 16 16 Blood Pressure 118/47 L 102/57 L Pulse Oximetry 95 94 Oxygen Delivery Method Room Air Room Air BMI result Body Mass Index 26.1 Patient is afebrile and hemodynamically stable. Const General: cooperative and no acute distress Orientation/consciousness: patient oriented x3 HENMT Head: Yes normal to inspection and Yes atraumatic Eyes General: appearance normal, both eyes and all related structures Pupils: Equal, round and reactive pupils present EOM: EOMs intact bilaterally Neck Neck: Yes normal visual inspection, Yes full ROM, Yes supple and No tender Chest Chest palpation & inspection: normal inspection of the chest and normal palpation of entire chest wall Resp Effort & Inspection: normal respiratory effort, able to speak in complete sentences, no cough and no respiratory distress Auscultation: clear to auscultation bilaterally Cardio Rate: regular rate Rhythm: regular rhythm Peripheral pulses: Peripheral pulses 2+ throughout GI Inspection: Yes normal to inspection, No Abdominal wall edema and No distended Palpation (GI): Soft to palpation, not firm, nontender, no guarding and not rigid Auscultation: normal bowel sounds Back/Spine/Pelvis Back: No back tenderness Neuro Other: Strength: 5/5 bilateral lower extremities, 5/5 RUE, 4/5 LUE Finger to nose normal RUE Mild past-pointing LUE General: patient oriented x3 Cranial nerves: Yes Equal, round and reactive pupils present and Yes Bilaterally intact EOM present Cognition (Neuro): normal cognition Speech: No Abnormal speech present Sensory Exam: No Sensory deficit (Neuro) Course Course Course Narrative: Patient is afebrile and hemodynamically stable. Unclear why patient was hypotensive in skilled nursing. Will obtain screening EKG, laboratory studies, and CT Head. Provided analgesia with Tylenol PO for headache management. Labs reviewed. Baseline mild anemia. Baseline CKD. CT Head is unremarkable for acute abnormalities. Patient is well appearing. I have personally re-checked his blood pressure multiple times without any evidence of hypotension. Plan: Discharge to home with PCP follow up Return precautions given Medications Administered Discontinued Medications Generic Name Dose Route Start Last Admin Trade Name Alex PRN Reason Stop Dose Admin Acetaminophen 975 mg 01/27/25 22:21 01/27/25 22:36 Acetaminophen 325 Mg Tablet PO 01/27/25 22:22 975 mg ONCE ONE Administration Medical Decision Making Lab Data 01/27/25 22:37 01/27/25 22:37 Labs: Lab Results 01/27/25 Range/Units 22:37 WBC 8.4 (4.8-10.8) X10*3/uL RBC 4.11 L (4.60-5.80) X10*6/uL Hgb 12.1 L (14.0-18.0) g/dl Hct 35.8 L (42.0-52.0) % MCV 87.1 (80.0-98.0) fL MCH 29.4 (27.0-33.0) pg MCHC 33.8 (31.0-36.0) g/dl RDW 13.3 (11.0-16.0) % Plt Count 210 (160-400) X10*3/uL MPV 10.2 (9.4-12.4) fL Immature Gran % (Auto) 0.2 (0.0-0.4) % Neut % (Auto) 54.4 (45-73) % Lymph % (Auto) 33.1 (20-40) % Yates % (Auto) 8.5 (2-11) % Eos % (Auto) 3.3 (0-4) % Baso % (Auto) 0.5 (0-2) % Lymph # (Auto) 2.8 (1.2-4.9) X10*3/uL Yates # (Auto) 0.7 (0.1-1.2) X10*3/uL Eos # (Auto) 0.3 (0.0-0.4) X10*3/uL Baso # (Auto) 0.0 (0.0-0.2) X10*3/uL Abs Immat Gran (auto) 0.02 (0.00-0.03) X10*3/uL Absolute Neuts (auto) 4.6 (2.0-8.3) x10*3/uL Absolute Nucleated RBC 0.000 (0.0-0.012) X10*3/uL Nucleated RBC % (auto) 0.0 (0.0-0.2) /100WBC Sodium 144 (135-145) mmol/L Potassium 4.2 (3.3-5.1) mmol/L Chloride 112 H (96-108) mmol/L Carbon Dioxide 25 (22-29) mmol/L Anion Gap 11 L (12-20) BUN 30 H (9-16) mg/dL Creatinine 2.02 H (0.5-1.4) mg/dL Estim Creat Clear Calc 36.6 Estimated GFR 34 Random Glucose 100 (60-115) mg/dL Calcium 9.1 (8.4-10.2) mg/dL Independent Interpretation I performed an independent interpretation of an: EKG Interpretation: NSR 62BPM with normal intervals, without ischemic changes. Radiology Impression Discussion of test interpretation with radiology: I have reviewed the radiologist's reading. Radiologist Impression: Report Number: [id number]: Total DLP = 856.00 mGy-cm CLINICAL HISTORY: Occipital BETANCOURT CT head without contrast Comparison: CT/SR - CT HEAD/BRAIN WO IV CON - 09/23/24 23:30 EST Findings: No intracranial mass, midline shift, hydrocephalus, or acute hemorrhage. There is generalized cerebral volume loss. Right parieto-occipital and left frontoparietal encephalomalacia present. Minimal mucosal thickening present at the right posterior ethmoid air cells. The bilateral mastoid air cells appear clear. No acute skull fracture. Impression: 1. No acute intracranial abnormality. No acute intracranial hemorrhage. This document has been electronically signed by: Nicholas Green MD on 01/27/2025 23:19:51 Discharge Plan Discharge Clinical Impression: Headache Patient Disposition: Home, Self-Care Instructions: Acute Headache (DC) Additional Instructions: As we discussed, you were seen today for a headache and concern for low blood pressure. You had multiple blood pressure in the hospital which were normal. Your CT Head did not show any new abnormalities. Your lab work was reassuring. Please follow up with your primary doctor on Wednesday to discuss your recent emergency department visit and for re-evaluation. Return to the emergency department at anytime with any concerns. Prescriptions: No Action hydralazine 50 mg tablet 50 mg PO TID 90 Days Qty: 270 2RF Protocol: Hold for SBP< HOLD for SBP < : 110 (DME) lancets [Easy Touch Safety Lancets] 26 gauge misc See Rx Instructions .ROUTE .COMPLEX Qty: 100 11RF Dose Instruction: USE 2-3 TIMES A DAY DIRECTED FOR BLOOD GLUCOSE MONITORING Rx Instructions: USE 2-3 TIMES A DAY DIRECTED FOR BLOOD GLUCOSE MONITORING dextrose [Dex4 Glucose] 15 gram/33 gram gel in packet See Rx Instructions PO .COMPLEX Qty: 198 4RF Rx Instructions: 15 gm pRN hypoglycemia (DME) FreeStyle Lite Strips Strip See Rx Instructions .ROUTE .COMPLEX Qty: 100 11RF Dose Instruction: USE TO TEST BLOOD SUGAR FOUR TIMES A DAY Rx Instructions: USE TO TEST BLOOD SUGAR FOUR TIMES A DAY pen needle, diabetic [Easy Touch] 31 gauge x 5/16 needle 1 ea miscellaneous TID 28 Days Qty: 84 11RF Eliquis 5 mg tablet 5 mg PO BID Qty: 56 11RF Rx Instructions: Report any excessive bleeding metoprolol succinate 25 mg tablet extended release 24 hr 25 mg PO BEDTIME 28 Days Qty: 28 11RF Rx Instructions: Do not crush/chew sennosides [senna] 8.6 mg tablet 8.6 mg PO BID Qty: 56 11RF ursodiol 300 mg capsule 300 mg PO BID Qty: 56 11RF Tresiba FlexTouch U-200 200 unit/mL (3 mL) insulin pen 46 unit subcut DAILY 30 Days Qty: 6.9 5RF Rx Instructions: Report any blood sugars <70 acetaminophen [Tylenol] 325 mg tablet 650 mg PO Q6H PRN (Reason: temp, headache or general discomfort) 30 Days Qty: 120 3RF Rx Instructions: Take two 325mg tabs every 6 hours as needed for fever over 101, headache, or general discomfort. Contact PCP if symptoms persist greater than 24 hours. Multi-Vitamin HP/Minerals Capsule 1 cap PO DAILY Qty: 90 1RF Rx Instructions: take for supplement daily with food Trulicity 3 mg/0.5 mL pen injector 3 mg subcut QWEEK Qty: 2 4RF cholecalciferol (vitamin D3) 25 mcg (1,000 unit) tablet 25 mcg PO DAILY 90 Days Qty: 90 4RF ascorbic acid (vitamin C) 500 mg tablet 500 mg PO BID 90 Days Qty: 180 0RF aspirin 81 mg tablet,delayed release (DR/EC) 81 mg PO QAM 90 Days Qty: 90 1RF Rx Instructions: Do not crush/chew atorvastatin 80 mg tablet 80 mg PO BEDTIME 90 Days Qty: 90 1RF Rx Instructions: replaces simvastatin 40 mg qhs Jardiance 10 mg tablet 10 mg PO QAM Qty: 28 6RF tamsulosin [Flomax] 0.4 mg capsule 0.4 mg PO BEDTIME 90 Days Qty: 90 1RF losartan 50 mg tablet 75 mg PO BID Qty: 84 3RF lactulose [Enulose] 10 gram/15 mL solution 30 ml PO .q72 h PRN (Reason: constipation) Qty: 473 3RF Rx Instructions: Take every 3 days or every 72 hours as needed. If no effect after 24 hours from dose, contact PCP nifedipine [Procardia XL] 30 mg tablet extended release 24hr 30 mg PO DAILY 30 Days Qty: 30 3RF polyethylene glycol 3350 17 gram/dose powder 17 g PO BID Qty: 1020 8RF acetaminophen [Tylenol] 325 mg tablet 325 mg PO QID PRN (Reason: pain) Qty: 20 0RF albuterol sulfate 90 mcg/actuation HFA aerosol inhaler 2 puff inhalation Q6H MDD 8 PRN (Reason: shortness of breath or wheezing) Qty: 8.5 0RF (DME) miscellaneous medical supply Misc See Rx Instructions .ROUTE .MEDSUPPLY Qty: 1 0RF Rx Instructions: R AFO, Daily As directed, 999 days. Disp #1 lorazepam [Ativan] 0.5 mg tablet 0.5 mg PO DAILY PRN (Reason: Anxiety) miscellaneous medical supply Misc See Rx Instructions miscellaneous .COMPLEX Qty: 1 1RF Rx Instructions: Right lateral sole wedge as directed; hydrocortisone 1 % cream 1 appl topical TID PRN (Reason: skin irritation) Qty: 28.35 0RF (DME) blood-glucose meter [FreeStyle Lite Meter] Kit See Rx Instructions .Route Rx Instructions: As directed glucose 5 % solution 15 g PO Q15M PRN (Reason: hypoglycemia) fluoxetine [Prozac] 40 mg capsule 40 mg PO DAILY Rexulti 2 mg tablet 2 mg PO DAILY trazodone 100 mg tablet 200 mg PO BEDTIME ketoconazole 2 % cream topical Print Language: Swedish
--- NOTE | 2025-01-27 22:21 | ECG_ITS ---
Test Reason : HS Blood Pressure : */* mmHG Vent. Rate : 62 BPM Atrial Rate : 62 BPM P-R Int : 146 ms QRS Dur : 90 ms QT Int : 430 ms P-R-T Axes : 32 -12 22 degrees QTcB Int : 436 ms Normal sinus rhythm Normal ECG When compared with ECG of 11-Oct-2024 21:30, No significant change was found Referred By: Marie Zheng Electronically Signed By: ELHAM JOE
[2025-01-27] MEDS: Acetaminophen 325 MG TABLET 975 MG PO (22:36)
[2025-01-27 22:45] LABS: MANUAL DIFF FLAG NO
[2025-01-27 22:46] LABS: Basophils Percent Auto 0.5 % (0-2); Eosinophils Absolute Auto 0.3 X10*3/uL (0.0-0.4); Eosinophils Percent Auto 3.3 % (0-4); Hematocrit 35.8 % (42.0-52.0); Hemoglobin 12.1 g/dl (14.0-18.0); Imm Gran Abs Auto 0.02 X10*3/uL (0.00-0.03); Imm Gran Pct Auto 0.2 % (0.0-0.4); Lymphocytes Absolute Auto 2.8 X10*3/uL (1.2-4.9); Lymphocytes Percent Auto 33.1 % (20-40); Mean Corpuscular HGB Conc 33.8 g/dl (31.0-36.0); Mean Corpuscular Hemoglobin 29.4 pg (27.0-33.0); Mean Corpuscular Volume 87.1 fL (80.0-98.0); Mean Platelet Volume 10.2 fL (9.4-12.4); Monocytes Absolute Auto 0.7 X10*3/uL (0.1-1.2); Monocytes Percent Auto 8.5 % (2-11); Neutrophils Absolute Auto 4.6 x10*3/uL (2.0-8.3); Neutrophils Percent Auto 54.4 % (45-73); Platelet Count 210 X10*3/uL (160-400); Red Blood Count 4.11 X10*6/uL (4.60-5.80); Red Cell Distribution Width 13.3 % (11.0-16.0); White Blood Count 8.4 X10*3/uL (4.8-10.8)
[2025-01-27 22:47] VITALS: BP 102/57; PULSE 56; RESP 16; TEMP 36.6; O2SAT 94
[2025-01-27 23:01] LABS: Anion Gap 11 (12-20); Blood Urea Nitrogen 30 mg/dL (9-16); Calcium 9.1 mg/dL (8.4-10.2); Carbon Dioxide 25 mmol/L (22-29); Chloride 112 mmol/L (96-108); Creatinine Clr Calc Pharmacy 36.6; Estimated Glomerular Filt Rate 34; Glucose Random 100 mg/dL (60-115); Potassium 4.2 mmol/L (3.3-5.1); Sodium 144 mmol/L (135-145)
--- OUTSIDE RECORDS SUMMARY | 2025-01-27 23:05 | XMS_ITS | Encounter Summary ---
Author Organization [facility] Address [address] [address] Phone Care Team Providers Care Drug Clerk Name Role Phone Smallwood, Sonia Wendy HENSON Primary Care Provider [phone] Reason for Visit * Reason Comments Med Refill Encounter Details Date Type Department Care Team (Late Contact Info) Description 12/07/2024 Refill [facility] [address] [place] [address] Ermias Sandoval MD [address] [address] Social History Tobacco Use Types [...] Office Visit [facility] [address] [place] [address] Ermias Sandoval MD [address] [address] documented as of this encounter Visit Diagnoses Not on filedocumented in this encounter Care Teams Drug Clerk Relationship Specialty Start Date End Date Brit Smallwood, REACH LIFT TRUCK DRIVER [address] [place] [id number] PCP - General Nurse Practitioner 02/13/21 documented as of this encounter
--- OUTSIDE RECORDS SUMMARY | 2025-01-27 23:05 | XMS_ITS | Clinical Summary ---
Author Organization [facility] Address [address] [facility] [address] Phone Care Team Providers Care Card Maker Name Role Phone Brit Smallwood NP Primary Care Provider [phone]- [phone] Allergies Active Allergy Reactions Criticality Noted Date [...] 01/23/2025 Refill [facility] [address] [address] Ermias Sandoval MD 12/28/2024 Refill [facility] [address] [address] Ermias Sandoval MD 12/12/2024 Refill [facility] [address] [address] Ermias Sandoval MD 12/07/2024 Refill [facility] [address] [address] Ermias Sandoval MD 11/30/2024 Refill [facility] [address] [address] Ermias Sandoval MD 11/13/2024 Refill [facility] [address] [address] Ermias Sandoval MD 11/07/2024 Refill [facility] [address] [address] Ermias Sandoval MD 11/01/2024 Refill [facility] [address] [address] Ermias Sandoval MD from Last 3 Months [...] Visit [facility] the [address] [place] [address] [place], [place] [address] [address] Ermias Sandoval MD [address] [facility] [address] [place] [phone] Health Maintenance Due Date Last Done Comments [...] patient's age to complete this topic Insurance [facility] [place] [address] Medicaid Care Teams Card Maker Relationship Specialty Start Date End Date Brit Smallwood NP [address] [place] [id number] PCP - General Nurse Practitioner 02/13/21
--- OUTSIDE RECORDS SUMMARY | 2025-01-27 23:05 | XMS_ITS | Encounter Summary ---
Author Organization [facility] Address [facility] 200 [place] [address] Phone Care Team Providers Care Optics Test Technician Name Role Phone Brit Smallwood SUBWAY CONDUCTOR Primary Care Provider [phone] Reason for Visit * Reason Comments Med Refill Encounter Details Date Type Department Care Team (Late st Contact Info) Description 12/09/2023 [facility]ill [facility] [address] [place] [phone] Antonio Carter MD [address] [phone] Social History Tobacco Use Types [...] Visit [facility] [address] [place] [address] Ermias Sandoval MD [address] [phone] documented as of this encounter Visit Diagnoses Not on filedocumented in this encounter Care Teams Optics Test Technician Relationship Specialty Start Date End Date Brit Smallwood NP [address] [place] [address] PCP - General Nurse Practitioner 02/13/21 documented as of this encounter
--- OUTSIDE RECORDS SUMMARY | 2025-01-27 23:05 | XMS_ITS | Encounter Summary ---
Author Organization [facility] Address 100 [facility] [address] [place] [address] Phone Care Team Providers Care Leather Splitter Name Role Phone Brit Smallwood [place] Primary Care Provider [phone] Reason for Visit * Reason Comments Med Refill Encounter Details Date Type Department Care Team (Late st Contact Info) Description 12/02/2023 Refill [facility] [address] [place] [phone] Antonio Carter MD 1669 [facility] [address] [place] [phone] Social History Tobacco Use Types Packs/Day Years [...] EST With the assistance of Radha speaking Cymraes a call was placed to the patient regarding a medication refill request. The patients fish and game warden was informed that in order to refill medications the patient needs a follow up visit. 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 He will contact the office with his decision. A 30 day refillis available to the patient. documented in this encounter Plan of Treatment Upcoming Encounters Date Type Department Care Team (Late st Contact Info) Description 02/08/2025 3:00 PM EDT Office Visit [facility] [address] [place] [address] [place] [address] Ermias Sandoval MD 4104 [facility] [address] [place] [address] documented as of this encounter Visit Diagnoses Not on filedocumented in this encounter Care Teams Leather Splitter Relationship Specialty Start Date End Date Brit Smallwood NP [address] [place] [address] PCP - General Nurse Practitioner 02/13/21 documented as of this encounter
--- OUTSIDE RECORDS SUMMARY | 2025-01-27 23:05 | XMS_ITS | Clinical Summary ---
Author Organization [facility] Address 175 [place] [address] Phone Care Team Providers Care Organizational Development Consultant Name Role Phone Nikki Naik PEPPER PICKER Primary Care Provider [phone] Allergies No known active allergies Medications ketoconazole (NIZORAL) 2 % cream Apply topically 1 (one) time each day. Apply topical in the morning time to the bottoms of the feet bilaterally 60 g 2 Active Encounters Date Type Department Care Team Description 01/11/2025 1:30 PM EDT Office Visit Orthopedic Surgery [facility] 250 175 [facility] [address] [place] [phone] Mao Evans DPM Controlled type 2 [...] Upcoming Encounters Date Type Department Care Team ([facility] st Contact Info) Description 04/12/2025 10:45 AM EDT Office Visit Orthopedic Surgery [place] 250 175 [facility] 250 [place] [phone] Mao Evans, ETHAN 175 [facility] 250 [place] [address] Health Maintenance Due Date Last Done Comments [...] patient's age to complete this topic Insurance [facility] Care Teams Organizational Development Consultant Relationship Specialty Start Date End Date Nikki Naik FNP [address] [place] [address] PCP - General Family Medicine 09/14/24
--- OUTSIDE RECORDS SUMMARY | 2025-01-27 23:05 | XMS_ITS | Encounter Summary ---
Author Organization [facility] Address [address] [address] Phone Care Team Providers Care Wind Turbine Technician Name Role Phone Smallwood, Sonia Wendy HENSON Primary Care Provider [phone] Reason for Visit * Reason Comments Med Refill Encounter Details Date Type Department Care Team (Late Contact Info) Description 01/23/2025 Refill [facility] [address] [place] [phone] Ermias Sandoval MD [address] [phone] Social History Tobacco Use [...] Office Visit [facility] [address] [place] [address] Ermias Sandoval MD [address] [phone] documented as of this encounter Visit Diagnoses Not on filedocumented in this encounter Care Teams Wind Turbine Technician Relationship Specialty Start Date End Date Brit Smallwood, EMBEDDED SYSTEMS DEVELOPER [address] [place] [address] PCP - General Nurse Practitioner 02/13/21 documented as of this encounter
--- OUTSIDE RECORDS SUMMARY | 2025-01-27 23:05 | XMS_ITS | Encounter Summary ---
Author Organization [facility] Address [address] [address] Phone Care Team Providers Care Supervisor Assembly Room Name Role Phone Smallwood, Sonia Wendy HENSON Primary Care Provider [phone] Reason for Visit * Reason Comments Med Refill Encounter Details Date Type Department Care Team (Late Contact Info) Description 11/07/2024 Refill [facility] [address] [place] [phone] Ermias Sandoval MD [address] [phone] Social History Tobacco Use Types [...] Office Visit [facility] [address] [place] [address] Ermias Sandoval MD [address] [phone] documented as of this encounter Visit Diagnoses Not on filedocumented in this encounter Care Teams Supervisor Assembly Room Relationship Specialty Start Date End Date Brit Smallwood, SOCIAL WORK MSW [address] [place] [address] PCP - General Nurse Practitioner 02/13/21 documented as of this encounter
--- OUTSIDE RECORDS SUMMARY | 2025-01-27 23:05 | XMS_ITS | Encounter Summary ---
Author Organization [facility] Address [address] [address] Phone Care Team Providers Care Spun Paste Machine Operator Name Role Phone Smallwood, Sonia Wendy HENSON Primary Care Provider [phone] Reason for Visit * Reason Comments Med Refill Encounter Details Date Type Department Care Team (Late Contact Info) Description 11/30/2024 Refill [facility] [address] [place] [phone] Ermias Sandoval MD [address] [phone] Social History Tobacco Use Types [...] Office Visit [facility] [address] [place] [address] Ermias Sandoval MD [address] [phone] documented as of this encounter Visit Diagnoses Not on filedocumented in this encounter Care Teams Spun Paste Machine Operator Relationship Specialty Start Date End Date Brit Smallwood, LIQUOR RUNNER [address] [place] [address] PCP - General Nurse Practitioner 02/13/21 documented as of this encounter
--- OUTSIDE RECORDS SUMMARY | 2025-01-27 23:05 | XMS_ITS | Encounter Summary ---
Author Organization [facility] Address [address] [address] Phone Care Team Providers Care Body Shop Technician Name Role Phone Smallwood, Sonia Wendy HENSON Primary Care Provider [phone] Reason for Visit * Reason Comments Med Refill Encounter Details Date Type Department Care Team (Late Contact Info) Description 11/01/2024 Refill [facility] [address] [place] [phone] Ermias Sandoval MD [address] [phone] Social History Tobacco Use Types [...] Visit [facility] [address] [place] [address] Ermias Sandoval MD [address] [phone] documented as of this encounter Visit Diagnoses Not on filedocumented in this encounter Care Teams Body Shop Technician Relationship Specialty Start Date End Date Brit Smallwood, ADULT FAMILY HOME PROGRAM MANAGER [address] [place] [address] PCP - General Nurse Practitioner 02/13/21 documented as of this encounter
--- NOTE | 2025-01-27 23:39 | PC.NURSE ---
Reviewed discharge instrucion with staff worker and pt, both verbalized understanding, no sign of distress at this time.
[2025-01-28] MEDS: Metoclopramide HCl 10 MG TABLET PO (00:12)
[2025-01-28] MEDS: diphenhydrAMINE HCL 25 MG CAPSULE PO (00:12)
[2025-01-28 00:14] VITALS: BP 110/51; PULSE 56; RESP 20; TEMP 36.5; O2SAT 96
--- NOTE | 2025-01-28 00:16 | PC.NURSE ---
pt awaiting EMS, medicated per mar.
--- NOTE | 2025-01-28 00:31 | PC.NURSE ---
report given to EMS, no sign of distress, protective services case worker wtih pt. discharge instructions given.
[2025-01-28 00:33] VITALS: BP 110/51; PULSE 56; RESP 20; TEMP 36.5; O2SAT 96
== END 2025-01-28 00:34 | disposition home or self-care (01) ==
PROVIDERS: Emergency Provider Emergency Medicine; PCP Nurse Practitioner Family
DX: R07.89 Other chest pain (principal); E11.9 Type 2 diabetes mellitus without complications; I10 Essential (primary) hypertension; R51.9 Headache, unspecified; Z86.73 Personal history of transient ischemic attack (TIA), and cerebral infarction without residual deficits; Z79.899 Other long term (current) drug therapy; Z87.891 Personal history of nicotine dependence
CPT/HCPCS: 36415; 70450; 80048; 85025; 93005; 99284; 99285

== ENCOUNTER → 2025-01-27 22:21 | Outpatient (BNV) | payer OTHER, SELFPAY | PROVIDERS: Emergency Provider Emergency Medicine; PCP Nurse Practitioner Family; Visit Provider Radiology Diagnostic Radiology | DX: M54.81 Occipital neuralgia (principal) | CPT/HCPCS: 70450 ==

== ENCOUNTER → 2025-01-27 22:21 | Outpatient (BNV) | payer OTHER, SELFPAY | PROVIDERS: Emergency Provider Emergency Medicine; PCP Nurse Practitioner Family; Visit Provider Internal Medicine | DX: L73.2 Hidradenitis suppurativa (principal) | CPT/HCPCS: 93010 ==

== ENCOUNTER 2025-03-13 19:00 | Emergency (ER) | payer OTHER, SELFPAY ==
--- NOTE | 2025-03-13 | ECG_ITS ---
Test Reason : SHOULDER PAIN Blood Pressure : */* mmHG Vent. Rate : 57 BPM Atrial Rate : 57 BPM P-R Int : 132 ms QRS Dur : 92 ms QT Int : 420 ms P-R-T Axes : 13 -24 53 degrees QTcB Int : 408 ms Sinus bradycardia Otherwise normal ECG When compared with ECG of 27-Jan-2025 22:36, No significant change was found Referred By: Generic ED Physician Electronically Signed By: SYED ORTIZ MD
--- NOTE | ~2025-03-13 | CT_ITS ---
CLINICAL HISTORY: hx stroke, left sided arm shoulder pain CT head without contrast Comparison: CT/SR - CT HEAD/BRAIN WO IV CON - 01/27/25 22:25 EDT Findings: No intra-axial mass, midline shift, hydrocephalus, or acute hemorrhage. Encephalomalacia in right parietal and left frontoparietal lobes. The visualized paranasal sinuses and mastoid air cells are normal. No acute findings in the orbits. No skull fracture. IMPRESSION: 1. No acute intracranial findings. This document has been electronically signed by: Britany Lazaro MD on 03/13/2025 21:06:29
--- NOTE | ~2025-03-13 | XR_ITS ---
CLINICAL HISTORY: left shoulder pain 3 view left shoulder Comparison: None Findings: No acute fracture or dislocation of the left shoulder. Chronic fractures of the left anterolateral 3rd and 4th ribs. Acromioclavicular osteoarthritis. No erosions. No radiopaque foreign body. IMPRESSION: 1. No acute osseous injury. This document has been electronically signed by: Britany Lazaro MD on 03/13/2025 21:36:39
[2025-03-13 19:45] VITALS: BP 133/66; PULSE 63; RESP 18; TEMP 36.6; O2SAT 96; BMI 21.8
--- NOTE | 2025-03-13 19:55 | PC.NURSE ---
per Devaughn FRANK verbal order for ekg, head ct for previous Hx stroke
--- NOTE | 2025-03-13 19:57 | ED_ITS ---
HPI - General Adult General Chief complaint: Extremity Problem Stated complaint: R shoulder pain Time Seen by Provider: 03/14/25 01:43 History of Present Illness ED Provider: Zaki RAMOS narrative: The patient is a 64-year-old male with a history of left arm weakness secondary to a stroke. He lives at a custodial. He comes to the emergency room because he has been having pain in his left shoulder for 4 days. The pain is worse when he moves his left arm. He has had no injury. He says he has been taking Tylenol without relief. No fever, sweats, chills. At triage she also mentioned a headache. Related Data Home Medications ?Medication ?Instructions ?Recorded ?Confirmed lorazepam 0.5 mg tablet (Ativan) 0.5 mg PO DAILY PRN Anxiety 07/24/20 01/25/25 glucose 5 % oral solution 15 g PO Q15M PRN hypoglycemia 12/28/22 01/25/25 blood-glucose meter (FreeStyle 05/17/23 01/25/25 Lite Meter kit) fluoxetine 40 mg capsule (Prozac) 40 mg PO DAILY 01/27/24 01/25/25 brexpiprazole 2 mg tablet (Rexulti) 2 mg PO DAILY 12/01/24 01/25/25 ketoconazole 2 % topical cream appl topical 12/01/24 01/25/25 trazodone 100 mg tablet 200 mg PO BEDTIME 12/01/24 01/25/25 Previous Rx's ?Medication ?Instructions ?Recorded miscellaneous medical supply #1 ea 07/11/21 miscellaneous medical supply See Rx Instructions miscellaneous 05/14/22 .COMPLEX #1 ea hydralazine 50 mg tablet 50 mg PO TID 90 days #270 tabs 11/05/22 dextrose 15 gram/33 gram oral gel See Rx Instructions PO .COMPLEX 12/31/23 packet (Dex4 Glucose) #198 grams blood sugar diagnostic (FreeStyle #100 ea 02/22/24 Lite Strips) pen needle, diabetic 31 gauge x 1 ea miscellaneous TID 28 days #84 02/22/24 5/16 (Easy Touch) ea apixaban 5 mg tablet (Eliquis) 5 mg PO BID #56 tabs 05/04/24 metoprolol succinate 25 mg 25 mg PO BEDTIME 28 days #28 tabs 05/04/24 tablet,extended release 24 hr sennosides 8.6 mg tablet (senna) 8.6 mg PO BID #56 tabs 05/04/24 ursodiol 300 mg capsule 300 mg PO BID #56 caps 05/04/24 hydrocortisone 1 % topical cream 1 appl topical TID PRN skin 05/22/24 irritation #28.35 grams albuterol sulfate 90 mcg/actuation 2 puff inhalation Q6H PRN 06/08/24 aerosol inhaler shortness of breath or wheezing #8.5 grams acetaminophen 325 mg tablet 650 mg (2 x 325 mg) PO Q6H PRN 08/02/24 (Tylenol) temp, headache or general discomfort 30 days #120 tabs cholecalciferol (vitamin D3) 25 25 mcg PO DAILY 90 days #90 tabs 10/23/24 mcg (1,000 unit) tablet aspirin 81 mg tablet,delayed 81 mg PO QAM 90 days #90 tabs 11/07/24 release atorvastatin 80 mg tablet 80 mg PO BEDTIME 90 days #90 tabs 11/07/24 empagliflozin 10 mg tablet 10 mg PO QAM #28 tabs 11/07/24 (Jardiance) tamsulosin 0.4 mg capsule (Flomax) 0.4 mg PO BEDTIME 90 days #90 caps 11/07/24 losartan 50 mg tablet 75 mg (1.5 x 50 mg) PO BID #84 tabs 11/08/24 lactulose 10 gram/15 mL oral 30 ml PO .q72 h PRN constipation 11/13/24 solution (Enulose) #473 mL acetaminophen 325 mg tablet 325 mg PO QID PRN pain #20 tabs 12/01/24 (Tylenol) nifedipine 30 mg tablet,extended 30 mg PO DAILY 30 days #30 tabs 01/08/25 release 24 hr (Procardia XL) polyethylene glycol 3350 17 17 g PO BID #1,020 grams 01/08/25 gram/dose oral powder dulaglutide 3 mg/0.5 mL 3 mg (0.5 mL) subcut QWEEK #2 mL 01/31/25 subcutaneous pen injector ([facility]) insulin degludec 200 unit/mL (3 46 unit (0.23 mL) subcut DAILY 30 02/05/25 mL) subcutaneous pen (Tresiba days #6.9 mL FlexTouch U-200 insulin) ascorbic acid (vitamin C) 500 mg 500 mg PO BID 3 months #180 tabs 02/06/25 tablet lancets 26 gauge (Easy Touch #100 ea 02/06/25 Safety Lancets) multivitamin,tx-minerals 1 cap PO DAILY #90 caps 03/07/25 (Multi-Vitamin HP/Minerals capsule) lidocaine 4 % topical patch 1 patch topical DAILY PRN pain #15 03/14/25 (AsperFlex (lidocaine)) ea Allergies Allergy/AdvReac Type Severity Reaction Status Date / Time amlodipine [From [facility]] Allergy Severe due to Verified 03/13/25 19:48 poor renal function ibuprofen Allergy Severe 2/2 renal Verified 03/13/25 19:48 function Review of Systems 2 Review of Systems: Yes all other systems are reviewed and are negative [facility] Past Medical History Medical History Skin lesion Squamous cell carcinoma of skin Encephalopathy Cerebrovascular accident Hypoglycemia unawareness associated with type 2 diabetes mellitus Diabetes type 2, uncontrolled Type 2 diabetes mellitus with diabetic polyneuropathy Essential hypertension Epigastric pain Skin cancer Postoperative bleeding from incision Skin lesion Stroke Type 2 diabetes mellitus with chronic kidney disease Chronic kidney disease, stage 3 Aphagia Unsteady gait Anemia Hypertensive chronic kidney disease with stage 1 through stage 4 chronic kidney disease, or unspecified chronic kidney disease CKD (chronic kidney disease) Hearing loss Preglaucoma Vascular device, implant, or graft complication Bronchitis HTN (hypertension) Hyperlipidemia Hyperlipidemia Vitamin D deficiency Vitamin D deficiency Constipation GERD (gastroesophageal reflux disease) Diabetes Hemiplegia Surgical History History of removal of cyst (~02/09/22) Hx of cataract surgery History of surgical removal of skin lesion History of exploratory laparotomy Family History Family History Father Myocardial infarction Mother Throat cancer Diabetes Family/Other FH: mental illness Brother In good health Sister In good health Sister In good health Daughter In good health Social History Social History 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 Household Members Other:: custodial Housing: House Do you presently have visiting nurse or other home services: Yes Alcohol intake: current Alcohol intake frequency: does not drink Patient Tobacco Use Status: Former Tobacco user Tobacco use type: Cigarette Cigarette Packs Per Day: 2 Cigarettes Per Day: 40.0 Years Smoked: 16 Smoked in Last 30 Days: No e-Cigarette/Vaping Use: Never Used Second Hand Smoke Exposure: No Use of substances other than those prescribed or required for medical reasons: No Substance Use Type: Marijuana Advance Directives: Yes Advance Directives Information Provided: Yes Advance Directives on File: No Advance Directives Date on File: 07/04/24 Do you have a plan to hurt others: No Plan service: No Current occupational status: disabled Current occupational exposures/hazards: No Cognitive needs: Yes (walker) Hearing needs: No Vision needs: No Physical Exam ED Vital Signs: Vital Signs - 24 hr 03/13/25 19:45 03/14/25 01:57 03/14/25 02:33 Temperature 97.9 F 97.4 F 97.4 F Pulse Rate 63 64 64 Respiratory Rate 18 16 16 Blood Pressure 133/66 152/63 H 152/63 H Pulse Oximetry 96 96 96 Oxygen Delivery Method Room Air Room Air Room Air BMI result Body Mass Index 21.8 Const Other: The patient is a chronically ill-appearing 64-year-old male. He is awake and alert, pleasant cooperative. He does not appear acutely toxic. He seems to have some chronic left-sided facial weakness and left arm weakness. HENMT Other: There is left-sided facial weakness that is apparently old. Mucous membranes are moist. Eyes General: appearance normal, both eyes and all related structures Conjunctivae: conjunctivae normal Pupils: Equal, round and reactive pupils present EOM: EOMs intact bilaterally Neck Neck: Yes normal visual inspection, Yes full ROM and Yes no JVD Resp Effort & Inspection: normal respiratory effort Auscultation: clear to auscultation bilaterally Cardio Rate: regular rate Rhythm: regular rhythm Heart sounds: S1 normal heart sound present and S2 normal heart sound present Skin Other: The skin around the left shoulder is normal. The skin elsewhere is normal. Neuro Other: The patient has left facial weakness and left arm weakness that is apparently chronic. He is awake and alert. His speech is slightly hard to understand because of his left facial weakness but his speech is otherwise clear. I believe he is at his neurological baseline. Cranial nerves: Yes Equal, round and reactive pupils present Extrem Other: The patient has a lot of tenderness around the left shoulder. There was no deformity. No erythema. There is some pain with moving the left shoulder but the joint is not frozen. Course Course Course Narrative: RME: 64-year-old male presents to ED for 4 days of left shoulder pain and headache. Patient has history of stroke and chronic left upper extremity deficit due to stroke in the past. Patient denies any chest pain or shortness of breath. Physical exam negative for any new weakness or neuro deficits. Positive for left shoulder tenderness. Positive for chronic left shoulder slightly weaker than right. Symptoms for 4 days. Was sent for shoulder x-ray head CT scan EKG labs. Medications Administered Discontinued Medications Generic Name Dose Route Start Last Admin Trade Name Freq PRN Reason Stop Dose Admin Lidocaine 1 patch 03/14/25 02:01 03/14/25 02:08 Lidocaine 4 % Patch Adh..Patch TRANSDERMA 03/14/25 02:02 1 patch ONCE ONE Administration Protocol Medical Decision Making Medical Decision Making MDM Narrative: The patient is a 64-year-old male who lives at a custodial. He has a history of a stroke which has left him with left-sided weakness. He has only minimal use of his left arm. He presents with several days of left shoulder pain. Clinically he does not seem to have a septic arthritis. The pain is exacerbated by palpation and movement of the arm so I think this is likely musculoskeletal pain. His x-ray is negative. The patient has chronic renal insufficiency. He is therefore not a candidate for treatment with NSAIDs. I will recommend lidocaine patches in addition to Tylenol. He was given a sling. He should follow up with his PCP. Lab Data 03/13/25 21:16 03/13/25 21:16 Labs: Lab Results 03/13/25 Range/Units 21:16 WBC 11.9 H (4.8-10.8) X10*3/uL RBC 4.07 L (4.60-5.80) X10*6/uL Hgb 12.2 L (14.0-18.0) g/dl Hct 36.0 L (42.0-52.0) % MCV 88.5 (80.0-98.0) fL MCH 30.0 (27.0-33.0) pg MCHC 33.9 (31.0-36.0) g/dl RDW 12.9 (11.0-16.0) % Plt Count 226 (160-400) X10*3/uL MPV 11.0 (9.4-12.4) fL Immature Gran % (Auto) 0.3 (0.0-0.4) % Neut % (Auto) 65.9 (45-73) % Lymph % (Auto) 23.8 (20-40) % [place] % (Auto) 7.2 (2-11) % Eos % (Auto) 2.5 (0-4) % Baso % (Auto) 0.3 (0-2) % Lymph # (Auto) 2.8 (1.2-4.9) X10*3/uL [place] # (Auto) 0.9 (0.1-1.2) X10*3/uL Eos # (Auto) 0.3 (0.0-0.4) X10*3/uL Baso # (Auto) 0.0 (0.0-0.2) X10*3/uL Abs Immat Gran (auto) 0.03 (0.00-0.03) X10*3/uL Absolute Neuts (auto) 7.8 (2.0-8.3) x10*3/uL Absolute Nucleated RBC 0.000 (0.0-0.012) X10*3/uL Nucleated RBC % (auto) 0.0 (0.0-0.2) /100WBC PT 14.7 H (10.9-12.4) SEC INR 1.3 H (0.9-1.1) APTT 38.0 H (26.0-36.8) SEC Sodium 142 (135-145) mmol/L Potassium 4.8 (3.3-5.1) mmol/L Chloride 109 H (96-108) mmol/L Carbon Dioxide 25 (22-29) mmol/L Anion Gap 13 (12-20) BUN 33 H (9-16) mg/dL Creatinine 1.86 H (0.5-1.4) mg/dL Estim Creat Clear Calc 37.9 Estimated GFR 37 Random Glucose 101 (60-115) mg/dL Calcium 9.7 D (8.4-10.2) mg/dL Total Bilirubin 0.2 (0.0-1.0) mg/dL AST 21 (5-37) U/L ALT 12 (0-40) U/L Alkaline Phosphatase 63 (39-117) U/L Troponin I High Sens 4.1 (<3.5-35.0) ng/L Total Protein 7.7 (6.5-8.0) g/dL Albumin 4.7 (3.5-5.0) g/dL Discharge Plan Discharge Clinical Impression: Left shoulder strain, Headache Patient Disposition: Home, Self-Care Additional Instructions: I think you are having musculoskeletal pain of your left shoulder. The x-ray of your left shoulder is unremarkable. Other testing is also unremarkable. Continue to use the acetaminophen you has been using. In addition I have sent a prescription for lidocaine patches. These may be used by applying a patch for 12 hours. Then remove the patch and wait 12 hours before applying the next patch for 12 hours. You may continue to do this using 1 patch daily. Please follow up with your regular doctor. Return to the emergency room if significantly worse. Prescriptions: New lidocaine [AsperFlex (lidocaine)] 4 % adhesive patch,medicated 1 patch topical DAILY PRN (Reason: pain) Qty: 15 0RF No Action hydralazine 50 mg tablet 50 mg PO TID 90 Days Qty: 270 2RF Protocol: Hold for SBP< HOLD for SBP < : 110 dextrose [Dex4 Glucose] 15 gram/33 gram gel in packet See Rx Instructions PO .COMPLEX Qty: 198 4RF Rx Instructions: 15 gm pRN hypoglycemia (DME) FreeStyle Lite Strips Strip See Rx Instructions .ROUTE .COMPLEX Qty: 100 11RF Dose Instruction: USE TO TEST BLOOD SUGAR FOUR TIMES A DAY Rx Instructions: USE TO TEST BLOOD SUGAR FOUR TIMES A DAY pen needle, diabetic [Easy Touch] 31 gauge x 5/16 needle 1 ea miscellaneous TID 28 Days Qty: 84 11RF Eliquis 5 mg tablet 5 mg PO BID Qty: 56 11RF Rx Instructions: Report any excessive bleeding metoprolol succinate 25 mg tablet extended release 24 hr 25 mg PO BEDTIME 28 Days Qty: 28 11RF Rx Instructions: Do not crush/chew sennosides [senna] 8.6 mg tablet 8.6 mg PO BID Qty: 56 11RF ursodiol 300 mg capsule 300 mg PO BID Qty: 56 11RF acetaminophen [Tylenol] 325 mg tablet 650 mg PO Q6H PRN (Reason: temp, headache or general discomfort) 30 Days Qty: 120 3RF Rx Instructions: Take two 325mg tabs every 6 hours as needed for fever over 101, headache, or general discomfort. Contact PCP if symptoms persist greater than 24 hours. cholecalciferol (vitamin D3) 25 mcg (1,000 unit) tablet 25 mcg PO DAILY 90 Days Qty: 90 4RF aspirin 81 mg tablet,delayed release (DR/EC) 81 mg PO QAM 90 Days Qty: 90 1RF Rx Instructions: Do not crush/chew atorvastatin 80 mg tablet 80 mg PO BEDTIME 90 Days Qty: 90 1RF Rx Instructions: replaces simvastatin 40 mg qhs Jardiance 10 mg tablet 10 mg PO QAM Qty: 28 6RF tamsulosin [Flomax] 0.4 mg capsule 0.4 mg PO BEDTIME 90 Days Qty: 90 1RF losartan 50 mg tablet 75 mg PO BID Qty: 84 3RF lactulose [Enulose] 10 gram/15 mL solution 30 ml PO .q72 h PRN (Reason: constipation) Qty: 473 3RF Rx Instructions: Take every 3 days or every 72 hours as needed. If no effect after 24 hours from dose, contact PCP nifedipine [Procardia XL] 30 mg tablet extended release 24hr 30 mg PO DAILY 30 Days Qty: 30 3RF polyethylene glycol 3350 17 gram/dose powder 17 g PO BID Qty: 1020 8RF Trulicity 3 mg/0.5 mL pen injector 3 mg subcut QWEEK Qty: 2 4RF Tresiba FlexTouch U-200 200 unit/mL (3 mL) insulin pen 46 unit subcut DAILY 30 Days Qty: 6.9 2RF Rx Instructions: Report any blood sugars <70 (DME) lancets [Easy Touch Safety Lancets] 26 gauge misc See Rx Instructions .ROUTE .COMPLEX Qty: 100 11RF Dose Instruction: USE 2-3 TIMES A DAY DIRECTED FOR BLOOD GLUCOSE MONITORING Rx Instructions: USE 2-3 TIMES A DAY DIRECTED FOR BLOOD GLUCOSE MONITORING ascorbic acid (vitamin C) 500 mg tablet 500 mg PO BID 90 Days Qty: 180 3RF Multi-Vitamin HP/Minerals Capsule 1 cap PO DAILY Qty: 90 1RF Rx Instructions: take for supplement daily with food acetaminophen [Tylenol] 325 mg tablet 325 mg PO QID PRN (Reason: pain) Qty: 20 0RF albuterol sulfate 90 mcg/actuation HFA aerosol inhaler 2 puff inhalation Q6H MDD 8 PRN (Reason: shortness of breath or wheezing) Qty: 8.5 0RF (DME) miscellaneous medical supply Misc See Rx Instructions .ROUTE .MEDSUPPLY Qty: 1 0RF Rx Instructions: R AFO, Daily As directed, 999 days. Disp #1 lorazepam [Ativan] 0.5 mg tablet 0.5 mg PO DAILY PRN (Reason: Anxiety) miscellaneous medical supply Misc See Rx Instructions miscellaneous .COMPLEX Qty: 1 1RF Rx Instructions: Right lateral sole wedge as directed; hydrocortisone 1 % cream 1 appl topical TID PRN (Reason: skin irritation) Qty: 28.35 0RF (DME) blood-glucose meter [FreeStyle Lite Meter] Kit See Rx Instructions .Route Rx Instructions: As directed glucose 5 % solution 15 g PO Q15M PRN (Reason: hypoglycemia) fluoxetine [Prozac] 40 mg capsule 40 mg PO DAILY Rexulti 2 mg tablet 2 mg PO DAILY trazodone 100 mg tablet 200 mg PO BEDTIME ketoconazole 2 % cream topical Referrals: Nikki Naik, WRESTLING COACH [Primary Care Provider] - (Left shoulder pain, musculoskeletal) Interventions: ED Discharge Assessment Last Done: 03/14/25 02:33 Discharge Date/Time: 03/14/25 02:34 Print Language: Estonian
[2025-03-13 21:32] LABS: MANUAL DIFF FLAG NO
[2025-03-13 21:35] LABS: Basophils Percent Auto 0.3 % (0-2); Eosinophils Absolute Auto 0.3 X10*3/uL (0.0-0.4); Eosinophils Percent Auto 2.5 % (0-4); Hemoglobin 12.2 g/dl (14.0-18.0); Imm Gran Abs Auto 0.03 X10*3/uL (0.00-0.03); Imm Gran Pct Auto 0.3 % (0.0-0.4); Lymphocytes Absolute Auto 2.8 X10*3/uL (1.2-4.9); Lymphocytes Percent Auto 23.8 % (20-40); Mean Corpuscular HGB Conc 33.9 g/dl (31.0-36.0); Mean Corpuscular Volume 88.5 fL (80.0-98.0); Monocytes Absolute Auto 0.9 X10*3/uL (0.1-1.2); Monocytes Percent Auto 7.2 % (2-11); Neutrophils Absolute Auto 7.8 x10*3/uL (2.0-8.3); Neutrophils Percent Auto 65.9 % (45-73); Platelet Count 226 X10*3/uL (160-400); Red Blood Count 4.07 X10*6/uL (4.60-5.80); Red Cell Distribution Width 12.9 % (11.0-16.0); White Blood Count 11.9 X10*3/uL (4.8-10.8)
[2025-03-13 21:42] LABS: INTERNATIONAL NORM RATIO 1.3 (0.9-1.1); Prothrombin Time 14.7 SEC (10.9-12.4)
[2025-03-13 21:46] LABS: Alanine Aminotransferase 12 U/L (0-40); Albumin Level 4.7 g/dL (3.5-5.0); Alkaline Phosphatase 63 U/L (39-117); Anion Gap 13 (12-20); Aspartate Amino Transferase 21 U/L (5-37); Bilirubin Total 0.2 mg/dL (0.0-1.0); Blood Urea Nitrogen 33 mg/dL (9-16); Calcium 9.7 mg/dL (8.4-10.2); Carbon Dioxide 25 mmol/L (22-29); Chloride 109 mmol/L (96-108); Creatinine Clr Calc Pharmacy 37.9; Estimated Glomerular Filt Rate 37; Glucose Random 101 mg/dL (60-115); Potassium 4.8 mmol/L (3.3-5.1); Sodium 142 mmol/L (135-145); Total Protein 7.7 g/dL (6.5-8.0)
[2025-03-13 21:53] LABS: Troponin-I High Sensitivity 4.1 ng/L (<3.5-35.0)
--- NOTE | 2025-03-14 01:47 | PC.NURSE ---
pt placed in room in wheel chair, pt transferred to bed, awaiting to be seen by provider.
[2025-03-14 01:57] VITALS: BP 152/63; PULSE 64; RESP 16; TEMP 36.3; O2SAT 96
--- NOTE | 2025-03-14 02:04 | PC.NURSE ---
provider into assess pt, hardware press operator in to translate plan of care.
[2025-03-14] MEDS: Lidocaine 4 % Patch ADH..PATCH 1 PATCH TRANSDERMA (02:08)
--- NOTE | 2025-03-14 02:11 | PC.NURSE ---
pt medicated per dec. Sling applied.
--- NOTE | 2025-03-14 02:24 | PC.NURSE ---
reviewed discharge instructions with pt. pt verbalized understanding, paperwork given to [facility] assoicate.
[2025-03-14 02:33] VITALS: BP 152/63; PULSE 64; RESP 16; TEMP 36.3; O2SAT 96
== END 2025-03-14 02:34 | disposition home or self-care (01) ==
PROVIDERS: Physician Assistant; Emergency Provider Emergency Medicine; PCP Nurse Practitioner Family
DX: S46.912A Strain of unspecified muscle, fascia and tendon at shoulder and upper arm level, left arm, initial encounter (principal); X58.XXXA Exposure to other specified factors, initial encounter; M25.512 Pain in left shoulder; R51.9 Headache, unspecified; Z87.891 Personal history of nicotine dependence; F12.90 Cannabis use, unspecified, uncomplicated; Y93.9 Activity, unspecified; Y92.9 Unspecified place or not applicable; Y99.9 Unspecified external cause status
CPT/HCPCS: 36415; 70450; 73030; 80053; 84484; 85025; 85610; 85730; 93005; 99284

== ENCOUNTER → 2025-03-13 19:19 | Outpatient (BNV) | payer OTHER, SELFPAY | PROVIDERS: PCP Nurse Practitioner Family; Visit Provider Radiology Diagnostic Radiology | DX: Z86.73 Personal history of transient ischemic attack (TIA), and cerebral infarction without residual deficits (principal); M25.512 Pain in left shoulder | CPT/HCPCS: 70450; 73030 ==

== ENCOUNTER → 2025-03-13 21:18 | Outpatient (BNV) | payer OTHER, SELFPAY | PROVIDERS: Emergency Provider Emergency Medicine; PCP Nurse Practitioner Family; Visit Provider Internal Medicine Cardiovascular Disease | DX: R00.1 Bradycardia, unspecified (principal) | CPT/HCPCS: 93010 ==

== ENCOUNTER 2025-03-16 15:28 | Outpatient (AMB) | payer OTHER, SELFPAY ==
--- NOTE | 2025-03-16 15:29 | MHC.PC.OV ---
Vital Signs 03/16/25 15:38 03/16/25 15:44 03/16/25 16:16 Height 5 ft 8 in Weight 170 lb 2 oz BMI 25.9 BP 165/69 H 158/70 H 120/60 Blood Pressure Location Lt brachial Lt brachial Lt brachial Position Sitting Sitting Sitting Respiration 14 Pulse 87 Pulse Source Pulse Oximeter Temp 97.6 F Temp Source Oral Pulse Oximetry (%) 97 Oxygen Delivery Method Room Air Intake Visit Reasons: 3 mos HTN, DM and anxiety-depression RE Intake Note: Three month follow up. Besides the medicaiton that are confirmed, pt can not verify what other medications he is on. Patient stated that he has thought of being better of every day. No thoughts of self harm. Green Marketing Analyst Required: Yes Green Marketing Analyst Language: Campaign Associate Name: [id number] Allergies amlodipine [From [facility]] Allergy (Severe, Verified 03/16/25 15:35) due to poor renal function ibuprofen Allergy (Severe, Verified 03/16/25 15:35) 2/2 renal function Tobacco use date assessed: 03/16/25 Dental Screening Dental Screen Date: 12/08/24 HPI HPI Comments History of Present Illness Details 64-year-old male, accompanied by retirement staff, presents for hypertension, diabetes, anxiety, depression, and recent labs review follow-up.. He admits to taking his medications as prescribed without adverse reactions. He notes that his anxiety and depressive symptoms are generally well controlled. He reports passive SI due to feeling of loneliness. He denies active SI. He denies AH/VH. He notes that his followed by [facility]. He reports constant left shoulder pain which has been ongoing for the past several days. He was evaluated at [facility] on 03/13/2025 for left shoulder pain and was prescribed lidocaine patch and instructed to continue taking Tylenol. He notes that he has been taking the medications as prescribed without relief. [facility] Medical History Skin lesion Squamous cell carcinoma of skin Encephalopathy Cerebrovascular accident Hypoglycemia unawareness associated with type 2 diabetes mellitus Diabetes type 2, uncontrolled Type 2 diabetes mellitus with diabetic polyneuropathy Essential hypertension Epigastric pain Skin cancer Postoperative bleeding from incision Skin lesion Stroke Type 2 diabetes mellitus with chronic kidney disease Chronic kidney disease, stage 3 Aphagia Unsteady gait Anemia Hypertensive chronic kidney disease with stage 1 through stage 4 chronic kidney disease, or unspecified chronic kidney disease CKD (chronic kidney disease) Hearing loss Preglaucoma Vascular device, implant, or graft complication Bronchitis HTN (hypertension) Hyperlipidemia Hyperlipidemia Vitamin D deficiency Vitamin D deficiency Constipation GERD (gastroesophageal reflux disease) Diabetes Hemiplegia Surgical History History of removal of cyst (~02/09/22) Hx of cataract surgery History of surgical removal of skin lesion History of exploratory laparotomy Family History Father Myocardial infarction Mother Throat cancer Diabetes Family/Other FH: mental illness Brother In good health Sister In good health Sister In good health Daughter In good health Social History 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 Household Members Other:: retirement Housing: House Do you presently have visiting nurse or other home services: Yes Alcohol intake: current Alcohol intake frequency: does not drink Patient Tobacco Use Status: Former Tobacco user Tobacco use type: Cigarette Cigarette Packs Per Day: 2 Cigarettes Per Day: 40.0 Years Smoked: 16 e-Cigarette/Vaping Use: Never Used Second Hand Smoke Exposure: No Substance Use Type: Marijuana Advance Directives Date on File: 07/04/24 service: No Current occupational status: disabled Current occupational exposures/hazards: No Cognitive needs: Yes (walker) Hearing needs: No Vision needs: No Questionnaire PHQ-9 Over the last 2 weeks, how often have you been bothered by any of the following problems? 1. Little interest or pleasure in doing things: more than half the days 2. Feeling down, depressed, or hopeless: nearly every day 3. Trouble falling or staying asleep, or sleeping too much: nearly every day 4. Feeling tired or having little energy: nearly every day 5. Poor appetite or overeating: nearly every day 6. Feeling bad about yourself - or that you are a failure or have let yourself or your family down: not at all 7. Trouble concentrating on things, such as reading the newspaper or watching television: not at all 8. Moving or speaking so slowly that other people could have noticed. Or the opposite - being so fidgety or restless that you have been moving around a lot more than usual: several days 9. Thoughts that you would be better off or of hurting yourself in some way: nearly every day Total score: 18 Depression Screening Interpretation: Positive Depression Screening Follow-up: Existing condition and In treatment Depression Screening Done: Yes 50818 - PHQ-9 Billing: Yes Source: Developed by Drs. Amari Ortega, Domingo Granger and colleagues, with an educational anthony from [employer]. Thrive Questionnaire Date Thrive assessed: 03/16/25 I am a: Patient What is your living situation today?: I have a steady place to live Within the past 12 months, did the food you bought not last and you didn't have the money to get more?: Never true Within the past 12 months, did you worry whether your food would run out before you got money to buy more?: Never true Do you have trouble paying for medicines?: No Do you have trouble getting transportation to medical appointments?: No Do you have trouble paying your heating and electricity bill?: No Do you have trouble taking care of your child, family member or friend?: Yes Do you have trouble with day-to-day activities such as bathing, preparing meals, shopping, managing finances, etc.?: No Are you currently unemployed and looking for a job?: No Are you interested in more education?: No Please select the resources that you would like help with: None Currently or been in a relationship where the following occur: No concerns reported THRIVE Score: 0 PARRISH-7 AMB Questionnaire PARRISH-7 Date PARRISH - 7 assessed: 12/08/24 Feeling nervous, anxious, or on edge: 0 = Not at all Not being able to stop or control worryin = Several days Worrying too much about different things: 0 = Not at all Trouble relaxin = Not at all Being so restless that it is hard to sit still: 1 = Several days Becoming easily annoyed or irritable: 2 = More than half the days Feeling afraid as if something awful might happen: 3 = Nearly every day Total PARRISH-7 score (0-4 normal; 5-9 mild; 10-14 moderate; 15-21 severe): 7 Source: Developed by Chaparrita Kiran Kurt Kroenke and colleagues, with an educational anthony from [employer]. PARRISH-7 Assessment Billing PARRISH-7 Assessment Tool: PARRISH-7 Assessment 80291 Review of Systems Const Details: Const Denies chills, Denies fatigue, Denies fever(s), Denies headache(s) and Denies weakness ENT Denies dizziness and Denies headache(s) Card Denies chest pain, Denies lightheadedness, Denies dyspnea and Denies other (Palpitations) Resp Denies cough, Denies dyspnea, Denies wheezing and Denies other ( shortness of breath) GI Denies abdominal pain, Denies melena, Denies hematochezia, Denies change in bowel habits, Denies dyspepsia and Denies nausea Denies hematuria and Denies dysuria Musc Reports left shoulder pain, Denies abnormal gait, Denies numbness and Denies tingling Skin/Breast Denies rash, Denies unusual bruising and Denies wounds Neuro Denies abnormal gait, Denies dizziness, Denies headache(s), Denies memory loss, Denies numbness, Denies Sensory deficit (Neuro), Denies tingling and Denies weakness Psych Denies anxiety, Reports depression, Denies memory loss Endo Denies cold intolerance, Denies fatigue, Denies heat intolerance, Denies polydipsia and Denies polyuria Aller/Immun Denies wheezing Physical exam (Primary Care) Vital Signs: Last Vital Signs Temp 97.6 F 03/16/25 15:38 Pulse 87 03/16/25 15:38 Resp 14 03/16/25 15:38 BP 158/70 H 03/16/25 15:44 Pulse Ox 97 03/16/25 15:38 Oxygen Delivery Method Room Air 03/16/25 15:38 BMI result Body Mass Index 25.9 Tobacco/Smoking Status: Tobacco use Status Tobacco use date assessed 03/16/25 03/16/25 15:38 Patient Tobacco Use Status Former Tobacco user 03/16/25 15:30 Tobacco use type Cigarette 03/16/25 15:30 e-Cigarette/Vaping Use Never Used 03/16/25 15:30 Depression Screening Interpretation: Positive Depression Screening Follow-up: Existing condition and In treatment Thrive Assessment: Date of Thrive Assessment Date Thrive assessed 11/13/24 03/16/25 15:30 Currently or been in a relationship where the following occur: No concerns reported Const Other: General: no acute distress and well developed Nutritional Appearance: well nourished Orientation/consciousness: patient oriented x3 HENMT Head: Yes normocephalic and Yes atraumatic Eyes General: appearance normal, both eyes and all related structures Pupils: Equal, round and reactive pupils present EOM: EOMs intact bilaterally Resp Effort & Inspection: normal respiratory effort Auscultation: clear to auscultation bilaterally Cardio Rate: regular rate Rhythm: regular rhythm Heart sounds: S1 normal heart sound present, S2 normal heart sound present, no gallops, no murmurs and no rubs GI Palpation (GI): No Abdominal aortic bruit present, Soft to palpation, nontender, No hepatosplenomegaly present and No Rebound tenderness present Auscultation: normal bowel sounds General: Yes no CVA tenderness Back/Spine/Pelvis Back: no CVA tenderness Cervical Spine: cervical ROM normal and No Cervical spine tenderness Thoracic/Lumbar Spine: thoraco-lumbar ROM normal, No pain with thoraco-lumbar ROM, No thoracic spinal tenderness and No lumbar spinal tenderness Extrem General: Yes normal to inspection, No edema and No calf tenderness. Normal ROM/CMS of left shoulder, no overt injury/trauma, no point tenderness Skin General: warm and dry. Normal skin color. Normal skin turgor Neuro General: patient oriented x3, gait normal and no focal neuro deficit Cranial nerves: Yes Equal, round and reactive pupils present Cognition (Neuro): normal cognition Gait exam (Neuro): Normal gait present Sensory Exam: No Sensory deficit (Neuro) Psych Appearance: grossly normal Affect: normal affect Attitude: cooperative Thought process: Normal thought process present Coding Level of Care Code Est Pt Level 4 (53900) Complex EM visit Add On G2211 Diagnoses Essential hypertension I10 Hypertension type: essential hypertension Type 2 diabetes mellitus with diabetic polyneuropathy, without long-term current use of insulin E11.42 Diabetes mellitus correction insulin use: without longshore equipment operator use Depression with anxiety F41.8 Left arm pain M79.602 Additional Codes PARRISH-7 Assessment Billing - PARRISH-7 Assessment Tool: PARRISH-7 Assessment 44194 ([id number]) PHQ-9 - 78013 - PHQ-9 Billing: Yes ([id number]) Assessment & Plan Assessment & Plan (1) HTN (hypertension): Code(s): I10 - Essential (primary) hypertension Category: Medical Qualifiers: Hypertension type: essential hypertension Qualified Code(s): I10 - Essential (primary) hypertension Plan: Resting blood pressure is 120/60, within goal of less than 140/90. Continue current treatment regimen. Low-sodium diet encouraged. Follow-up in 3 months or sooner with symptoms or concerns. Verbalized understanding and agreed with the treatment plan. (2) Type 2 diabetes mellitus with diabetic polyneuropathy: Code(s): E11.42 - Type 2 diabetes mellitus with diabetic polyneuropathy Category: Medical Qualifiers: Diabetes mellitus longshore equipment operator insulin use: without longshore equipment operator use Qualified Code(s): E11.42 - Type 2 diabetes mellitus with diabetic polyneuropathy Plan: A1c today is 5.7%, within goal of less than 7.0%. Previous A1c was 5.7%. Continue current treatment regimen. ADA diet and routine exercise encouraged. Will recheck A1c in 3 months. Verbalized understanding and agreed with the plan. (3) Depression with anxiety: Code(s): F41.8 - Other specified anxiety disorders Category: Medical Plan: He notes that his anxiety and depressive symptoms are generally well controlled. He reports passive SI due to feeling of loneliness. He denies active SI. He denies AH/VH. He notes that his followed by [facility]. PHQ-9 and PARRISH-7 scores revealed moderately severe depression and mild anxiety respectively. Continue current treatment regimen. Routine exercise encouraged. Follow-up with psychiatrist as planned. Verbalized understanding and agreed with treatment plan. (4) Left arm pain: Code(s): M79.602 - Pain in left arm Category: Medical Plan: He reports constant left shoulder pain which has been ongoing for the past several days. He was evaluated at [facility] on 03/13/2025 for left shoulder pain and was prescribed lidocaine patch and instructed to continue taking Tylenol. He notes that he has been taking the medications as prescribed without relief. Normal ROM/CMS of left shoulder, no overt injury/trauma, no point tenderness Continue current treatment regimen. Warm/cool compresses encouraged. Message sent to the community nurse navigator for PT referral. Follow-up with worsening or new symptoms. Verbalized understanding and agreed with treatment plan. Orders: Orders AMB Hemoglobin A1c Today Z13.9 - Encounter for screening, unspecified
--- OUTSIDE RECORDS SUMMARY | 2025-03-16 15:31 | XMS_ITS | Encounter Summary ---
Author Organization [facility] Address [address] [facility] [address] [place] [address] Phone Care Team Providers Care Reading Instructor Name Role Phone Brit Smallwood GLOBAL PROJECT MANAGER Primary Care Provider [phone] Reason for Visit * Reason Comments Med Refill Encounter Details Date Type Department Care Team (Late st Contact Info) Description 12/09/2023 Refill [facility] [address] [facility] [address] [place] [phone] Antonio Carter MD [address] [facility] [address] [place] [id number] Social History Tobacco Use Types Packs/Day Years [...] on filedocumented in this encounter Care Teams Reading Instructor Relationship Specialty Start Date End Date Brit Smallwood NP [address] [place] [address] [id number] PCP - General Nurse Practitioner 02/13/21 documented as of this encounter
[2025-03-16 15:38] VITALS: BP 165/69; PULSE 87; RESP 14; TEMP 36.4; O2SAT 97; BMI 25.9
[2025-03-16 15:44] VITALS: BP 158/70
[2025-03-16 16:16] VITALS: BP 120/60
== END 2025-03-16 16:29 | disposition home or self-care (01) ==
LOC: HO.HMCFM 15:29
PROVIDERS: PCP Nurse Practitioner Family; Visit Provider Nurse Practitioner Family
DX: I10 Essential (primary) hypertension (principal); E11.42 Type 2 diabetes mellitus with diabetic polyneuropathy; F41.8 Other specified anxiety disorders; M79.602 Pain in left arm

== ENCOUNTER → 2025-03-16 15:28 | Outpatient (BNVA) | payer OTHER, SELFPAY | PROVIDERS: PCP Nurse Practitioner Family; Visit Provider Nurse Practitioner Family | DX: I10 Essential (primary) hypertension (principal); F32.A Depression, unspecified; M25.512 Pain in left shoulder; E11.42 Type 2 diabetes mellitus with diabetic polyneuropathy; F41.8 Other specified anxiety disorders; M79.602 Pain in left arm; Z79.899 Other long term (current) drug therapy | CPT/HCPCS: 96127; 99212 ==

== ENCOUNTER 2025-05-08 11:15 | Outpatient (RCR) | payer OTHER, SELFPAY ==
--- NOTE | 2025-04-12 15:20 | MHC.PT.EP ---
[facility] [place] Office [place] Office [place] Office [address] Krupa Monteiro [address] [phone] F: [phone] F: [phone] F: [phone] F: [phone] Physical Therapy Plan of Care Date of Evaluation: 04/11/25 Date of Surgery: Diagnosis: L shoulder pain (MD Dx) Cervical radiculopathy, L subacromial impingement syndrome due to Hx CVA with L megan (PT Dx) RS [ End ] Assessment: Simeon Weaver is a 64 y.o. Arabic speaking male whom lives in a half-way with PMH involving multiple CVAs causing L hemiparesis, DMT2, HTN, skin cancer, and CKD3 whom comes in wheelchair and normal uses RW for all mobility. He is referred to PT by Dr. Nikki Naik MD, with Dx of pain in LEFT arm. PT diagnosis is Cervical radiculopathy, L subacromial impingement syndrome due to Hx CVA with L megan. Patient impairments include constant pain with L UE radiculopathy, limited cervical ROM, limited shoulder ROM, shoulder weakness. Patient current functional limitations are lifting overhead, reaching across body, dressing. Patient will benefit from skilled PT to address aforementioned impairments and functional limitations to meet established goals. Frequency and Duration: The patient will be seen 2x/week for 4 weeks Short Term Goals: 2 weeks Patient demonstrates consistency with HEP with help of half-way staff to self manage symptoms. Paid Search Marketing Analyst Goals: 4 weeks Patient demonstrates increased L cervical rotation 55 degrees to restore mobility to improve sleep. Patient presents with increased L shoulder flexion AROM 160 degrees to assist with dressing. Treatment Plan: Modalities to reduce pain, spasms and effusion. Manual therapy to restore motion and function. Therapeutic exercise to improve strength and flexibility. Neuromuscular re-education for posture and balance. Therapeutic activities to return to functional activities of daily living. Electronically signed by: Abner Vargas, PT, DPT Please sign and return to therapist. Thank you for your referral.
--- NOTE | 2025-06-22 10:50 | MHC.PT.DC ---
[facility] [place] Office [place] Office [place] [facility] [address] Krupa Monteiro [address] [phone] F: [phone] F: [phone] F: [phone] F: [phone] Physical Therapy Discharge Report Diagnosis: L shoulder pain (MD Dx) Cervical radiculopathy, L subacromial impingement syndrome due to Hx CVA with L megan (PT Dx) RS [ End ] Date of Surgery: Date of Evaluation: 04/11/25 Date of Discharge: 06/22/25 Treatments to Date: 5 Cancellations to Date: 2 No Shows to Date: 2 Discharge Status: Patient Elected to Stop Visit Non-compliance Discharge Summary: Simeon ceased attending PT on 05/08/25. During his time in PT he demonstrated improvement in ROM but still required significant postural cues for his head/neck and shoulders. He is discharged from PT at this time. Electronically signed by: Abner Vargas, PT, DPT Please sign and return to therapist. Thank you for your referral.
== END 2025-06-22 10:51 | disposition home or self-care (01) ==
LOC: HO.PT 11:15
PROVIDERS: PCP Nurse Practitioner Family; Visit Provider Nurse Practitioner Family
DX: M79.602 Pain in left arm (principal)
CPT/HCPCS: 97110; 97112; 97140; 97163; 97530

== ENCOUNTER 2025-05-24 11:49 | Outpatient (AMB) | payer OTHER, SELFPAY ==
[2025-05-24 11:51] VITALS: BP 132/62; PULSE 85; O2SAT 96; BMI 25.1
--- NOTE | 2025-05-24 11:51 | HO.NEPHOV_ITS ---
Vital Signs 05/24/25 11:51 Height 5 ft 8 in Weight 165 lb BMI 25.1 BP 132/62 Blood Pressure Location Rt brachial Position Sitting Pulse 85 Pulse Source Pulse Oximeter Pulse Oximetry (%) 96 Oxygen Delivery Method Room Air Intake Visit Reasons: 4 MO FU/ LVM Electrical Assembly Technician Required: Yes Electrical Assembly Technician Name: sravanthi [id number] Accompanied by: Staff Allergies amlodipine (From [facility]) Allergy (Severe, Verified 05/24/25 11:54) due to poor renal function ibuprofen Allergy (Severe, Verified 05/24/25 11:54) 2/2 renal function Medication List - Last Reconciled 05/24/25 by Dileep Byers MD acetaminophen (Tylenol) 325 mg PO QID PRN acetaminophen (Tylenol) 650 mg (2 x 325 mg) PO Q6H PRN 30 days albuterol sulfate 90 mcg/actuation 2 puffs inhalation Q6H PRN MDD 8 apixaban (Eliquis) 5 mg PO BID ascorbic acid (vitamin C) 500 mg PO BID 3 months aspirin 81 mg PO QAM 90 days atorvastatin 80 mg PO BEDTIME 90 days blood sugar diagnostic (FreeStyle Lite Strips) USE TO TEST BLOOD SUGAR FOUR TIMES A DAY blood-glucose meter (FreeStyle Lite Meter kit) As directed brexpiprazole (Rexulti) 2 mg PO DAILY cholecalciferol (vitamin D3) 25 mcg PO DAILY 90 days dextrose (Dex4 Glucose) 15 gm pRN hypoglycemia dulaglutide (Trulicity) 3 mg (0.5 mL) subcut QWEEK empagliflozin (Jardiance) 10 mg PO QAM fluoxetine (Prozac) 40 mg PO DAILY glucose 15 grams PO Q15M PRN hydralazine 50 mg See Protocol PO TID 90 days hydrocortisone 1% 1 appl topical TID PRN insulin degludec (Tresiba FlexTouch U-200 insulin) 46 units (0.23 mL) subcut DAILY 30 days ketoconazole 2% appl topical lactulose (Enulose) 30 mL PO .q72 h PRN lancets (Easy Touch Safety Lancets) USE 2-3 TIMES A DAY DIRECTED FOR BLOOD GLUCOSE MONITORING lidocaine 4% (AsperFlex (lidocaine)) 1 patch topical DAILY PRN lorazepam (Ativan) 0.5 mg PO DAILY PRN losartan 75 mg (1.5 x 50 mg) PO BID metoprolol succinate ER 25 mg PO BEDTIME 28 days miscellaneous medical supply R AFO, Daily As directed, 999 days. Disp #1 miscellaneous medical supply Right lateral sole wedge as directed; multivitamin,tx-minerals (Multi-Vitamin HP/Minerals capsule) 1 cap PO DAILY nifedipine ER (Procardia XL) 30 mg PO DAILY 90 days pen needle, diabetic (Easy Touch) 1 ea miscellaneous TID 28 days polyethylene glycol 3350 17 grams PO BID sennosides (senna) 8.6 mg PO BID tamsulosin (Flomax) 0.4 mg PO BEDTIME 90 days trazodone 200 mg PO BEDTIME ursodiol 300 mg PO BID HPI Comments Details: Middle aged man with a history of CKD and hypertension. Here for follow-up. Today he has no specific complaints today. Accompanied by caregiver. Electrical Assembly Technician service was used 05/24/25 The patient is a 64-year-old male presenting for a follow-up on kidney function and blood sugar management. Kidney function has improved to 37% and remains stable. Current management will continue without changes. Blood sugar levels show occasional morning lows but are generally stable. No adjustments to the regimen are necessary at this time. DIAGNOSTIC RESULTS: - Kidney function: 37% improvement [facility] Medical History Skin lesion Squamous cell carcinoma of skin Encephalopathy Cerebrovascular accident Hypoglycemia unawareness associated with type 2 diabetes mellitus Diabetes type 2, uncontrolled Type 2 diabetes mellitus with diabetic polyneuropathy Essential hypertension Epigastric pain Skin cancer Postoperative bleeding from incision Skin lesion Stroke Type 2 diabetes mellitus with chronic kidney disease Chronic kidney disease, stage 3 Aphagia Unsteady gait Anemia Hypertensive chronic kidney disease with stage 1 through stage 4 chronic kidney disease, or unspecified chronic kidney disease CKD (chronic kidney disease) Hearing loss Preglaucoma Vascular device, implant, or graft complication Bronchitis HTN (hypertension) Hyperlipidemia Hyperlipidemia Vitamin D deficiency Vitamin D deficiency Constipation GERD (gastroesophageal reflux disease) Diabetes Hemiplegia Surgical History History of removal of cyst (~02/09/22) Hx of cataract surgery History of surgical removal of skin lesion History of exploratory laparotomy Family History Father Myocardial infarction Mother Throat cancer Diabetes Family/Other FH: mental illness Brother In good health Sister In good health Sister In good health Daughter In good health Social History 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 Household Members Other:: [facility] Housing: House Do you presently have visiting nurse or other home services: Yes Alcohol intake: current Alcohol intake frequency: does not drink Patient Tobacco Use Status: Former Tobacco user Tobacco use type: Cigarette Cigarette Packs Per Day: 2 Cigarettes Per Day: 40.0 Years Smoked: 16 e-Cigarette/Vaping Use: Never Used Second Hand Smoke Exposure: No Substance Use Type: Marijuana Advance Directives Date on File: 07/04/24 service: No Current occupational status: disabled Current occupational exposures/hazards: No Cognitive needs: Yes (walker) Hearing needs: No Vision needs: No Physical Exam Vital Signs: Last Vital Signs Pulse 85 05/24/25 11:51 BP 132/62 05/24/25 11:51 Pulse Ox 96 05/24/25 11:51 Oxygen Delivery Method Room Air 05/24/25 11:51 BMI result Body Mass Index 25.1 Awake. Comfortable. Neck is supple. Mucosa moist. Lungs bilateral scattered rhonchi. Heart S1-S2 heard no gallop. Abdomen soft. Extremities no edema. No involuntary movements. No myoclonus. Results Reviewed Nephrology Results: Hgb, (14.0-18.0) 12.2 g/dl L 03/13/25 WBC, (4.8-10.8) 11.9 X10*3/uL H 03/13/25 Plt Count, (160-400) 226 X10*3/uL 03/13/25 Sodium, (135-145) 142 mmol/L 03/13/25 Potassium, (3.3-5.1) 4.8 mmol/L 03/13/25 Chloride, (96-108) 109 mmol/L H 03/13/25 Carbon Dioxide, (22-29) 25 mmol/L 03/13/25 BUN, (9-16) 33 mg/dL H 03/13/25 Creatinine, (0.5-1.4) 1.86 mg/dL H 03/13/25 Calcium, (8.4-10.2) 9.7 mg/dL Δ 03/13/25 Assessment & Plan Assessment & Plan (1) Chronic kidney disease, stage 3: Code(s): N18.30 - Chronic kidney disease, stage 3 unspecified Category: Medical Qualifiers: Chronic kidney disease stage 3 subtype: stage 3a (GFR 45-59) Qualified Code(s): N18.31 - Chronic kidney disease, stage 3a (2) HTN (hypertension): Code(s): I10 - Essential (primary) hypertension Category: Medical Qualifiers: Hypertension type: essential hypertension Qualified Code(s): I10 - Essential (primary) hypertension Plan 64-year-old man with CKD setting of hypertension. Renal function has improved Goal is to slow the progression of renal disease. Continue to avoid nephrotoxic agents. Keep on losartan for renal protection in view of microalbuminuria. Agree with SGLT inhibitor Blood pressure is well controlled No changes were made to his antihypertensive regimen. He should stay on low-sodium diet. Orders: Orders Basic Metabolic Panel 4 Months I10 - Essential (primary) hypertension, N18.31 - Chronic kidney disease, stage 3a Parathyroid Hormone Intact 4 Months I10 - Essential (primary) hypertension, N18.31 - Chronic kidney disease, stage 3a Coding Level of Care Code Est Pt Level 4 (23891) Diagnoses Stage 3a chronic kidney disease N18.31 Chronic kidney disease stage 3 subtype: stage 3a (GFR 45-59) Essential hypertension I10 Hypertension type: essential hypertension
== END 2025-05-24 12:01 | disposition home or self-care (01) ==
LOC: HO.HKA 11:50
PROVIDERS: PCP Nurse Practitioner Family; Visit Provider Internal Medicine Hypertension Specialist
DX: N18.31 Chronic kidney disease, stage 3a (principal); I10 Essential (primary) hypertension
CPT/HCPCS: 99214

== ENCOUNTER → 2025-05-24 11:49 | Outpatient (BNVA) | payer OTHER, SELFPAY | PROVIDERS: PCP Nurse Practitioner Family; Visit Provider Internal Medicine Hypertension Specialist | DX: I12.9 Hypertensive chronic kidney disease with stage 1 through stage 4 chronic kidney disease, or unspecified chronic kidney disease (principal); N18.31 Chronic kidney disease, stage 3a; E11.22 Type 2 diabetes mellitus with diabetic chronic kidney disease; E11.42 Type 2 diabetes mellitus with diabetic polyneuropathy; E11.649 Type 2 diabetes mellitus with hypoglycemia without coma | CPT/HCPCS: 99212 ==

== ENCOUNTER 2025-06-22 10:57 | Outpatient (AMB) | payer OTHER, SELFPAY ==
--- NOTE | 2025-06-22 11:06 | MHC.PC.OV ---
Vital Signs 06/22/25 11:17 06/22/25 11:48 Height 5 ft 8 in Weight 167 lb BMI 25.4 BP 134/63 112/60 Blood Pressure Location Lt brachial Lt brachial Position Sitting Sitting Respiration 16 Pulse 54 Pulse Source Pulse Oximeter Pulse Oximetry (%) 98 Oxygen Delivery Method Room Air Intake Visit Reasons: 3 mos HTN, DM, resched Intake Note: patient here for 3 month follow up for DM Hot Frame Tender Required: No Accompanied by: Other Relationship Allergies amlodipine (From [facility]) Allergy (Severe, Verified 06/22/25 11:37) due to poor renal function ibuprofen Allergy (Severe, Verified 06/22/25 11:37) 2/2 renal function Medication List - Last Reconciled 06/22/25 by Nikki Naik CNP acetaminophen (Tylenol) 325 mg PO QID PRN acetaminophen (Tylenol) 650 mg (2 x 325 mg) PO Q6H PRN 30 days albuterol sulfate 90 mcg/actuation 2 puffs inhalation Q6H PRN MDD 8 apixaban (Eliquis) 5 mg PO BID ascorbic acid (vitamin C) 500 mg PO BID 3 months aspirin 81 mg PO QAM 90 days atorvastatin 80 mg PO BEDTIME 90 days blood sugar diagnostic (FreeStyle Lite Strips) USE TO TEST BLOOD SUGAR FOUR TIMES A DAY blood-glucose meter (FreeStyle Lite Meter kit) As directed brexpiprazole (Rexulti) 2 mg PO DAILY cholecalciferol (vitamin D3) 25 mcg PO DAILY 90 days dextrose (Dex4 Glucose) 15 gm pRN hypoglycemia dulaglutide (Trulicity) 3 mg (0.5 mL) subcut QWEEK empagliflozin (Jardiance) 10 mg PO QAM fluoxetine (Prozac) 40 mg PO DAILY glucose 15 grams PO Q15M PRN hydralazine 50 mg See Protocol PO TID 90 days hydrocortisone 1% 1 appl topical TID PRN insulin degludec (Tresiba FlexTouch U-200 insulin) 46 units (0.23 mL) subcut DAILY 30 days ketoconazole 2% appl topical lactulose (Enulose) 30 mL PO .q72 h PRN lancets (Easy Touch Safety Lancets) USE 2-3 TIMES A DAY DIRECTED FOR BLOOD GLUCOSE MONITORING lidocaine 4% (AsperFlex (lidocaine)) 1 patch topical DAILY PRN lorazepam (Ativan) 0.5 mg PO DAILY PRN losartan 75 mg (1.5 x 50 mg) PO BID metoprolol succinate ER 25 mg PO BEDTIME 28 days miscellaneous medical supply R AFO, Daily As directed, 999 days. Disp #1 miscellaneous medical supply Right lateral sole wedge as directed; multivitamin,tx-minerals (Multi-Vitamin HP/Minerals capsule) 1 cap PO DAILY nifedipine ER (Procardia XL) 30 mg PO DAILY 90 days pen needle, diabetic (Easy Touch) 1 ea miscellaneous TID 28 days polyethylene glycol 3350 17 grams PO BID sennosides (senna) 8.6 mg PO BID tamsulosin (Flomax) 0.4 mg PO BEDTIME 90 days trazodone 200 mg PO BEDTIME ursodiol 300 mg PO BID Tobacco use date assessed: 06/22/25 Dental Screening Dental Screen Date: 06/22/25 Did you have a dental visit in the last 12 months?: No Did you have a dental problem in the last 6 months where you did not have access to dental care?: No Was dental information given to patient?: Patient has dentist HPI HPI Comments History of Present Illness Details 64-year-old Amharic-speaking male, accompanied by retirement staff, presents for hypertension and diabetes follow-up. He admits to taking his medications as prescribed without adverse reactions. He notes that he has been making healthy lifestyle changes. He offers no complaints and denies acute symptoms at this time. Request Podiatry referral. Interpretation by professional certified court/medical interpreter via video. [facility] Medical History Skin lesion Squamous cell carcinoma of skin Encephalopathy Cerebrovascular accident Hypoglycemia unawareness associated with type 2 diabetes mellitus Diabetes type 2, uncontrolled Type 2 diabetes mellitus with diabetic polyneuropathy Essential hypertension Epigastric pain Skin cancer Postoperative bleeding from incision Skin lesion Stroke Type 2 diabetes mellitus with chronic kidney disease Chronic kidney disease, stage 3 Aphagia Unsteady gait Anemia Hypertensive chronic kidney disease with stage 1 through stage 4 chronic kidney disease, or unspecified chronic kidney disease CKD (chronic kidney disease) Hearing loss Preglaucoma Vascular device, implant, or graft complication Bronchitis HTN (hypertension) Hyperlipidemia Hyperlipidemia Vitamin D deficiency Vitamin D deficiency Constipation GERD (gastroesophageal reflux disease) Diabetes Hemiplegia Surgical History History of removal of cyst (~02/09/22) Hx of cataract surgery History of surgical removal of skin lesion History of exploratory laparotomy Family History Father Myocardial infarction Mother Throat cancer Diabetes Family/Other FH: mental illness Brother In good health Sister In good health Sister In good health Daughter In good health Social History 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 Household Members Other:: retirement Housing: House Do you presently have visiting nurse or other home services: Yes Alcohol intake: current Alcohol intake frequency: does not drink Patient Tobacco Use Status: Former Tobacco user Tobacco use type: Cigarette Cigarette Packs Per Day: 2 Cigarettes Per Day: 40.0 Years Smoked: 16 e-Cigarette/Vaping Use: Never Used Second Hand Smoke Exposure: No Substance Use Type: Marijuana Advance Directives Date on File: 07/04/24 service: No Current occupational status: disabled Current occupational exposures/hazards: No Cognitive needs: Yes (walker) Hearing needs: No Vision needs: No Questionnaire Thrive Questionnaire Date Thrive assessed: 11/13/24 I am a: Patient What is your living situation today?: I have a steady place to live Within the past 12 months, did the food you bought not last and you didn't have the money to get more?: Never true Within the past 12 months, did you worry whether your food would run out before you got money to buy more?: Never true Do you have trouble paying for medicines?: No Do you have trouble getting transportation to medical appointments?: No Do you have trouble paying your heating and electricity bill?: No Do you have trouble taking care of your child, family member or friend?: Yes Do you have trouble with day-to-day activities such as bathing, preparing meals, shopping, managing finances, etc.?: No Are you currently unemployed and looking for a job?: No Are you interested in more education?: No Please select the resources that you would like help with: None Currently or been in a relationship where the following occur: No concerns reported THRIVE Score: 0 PARRISH-7 AMB Questionnaire PARRISH-7 Date PARRISH - 7 assessed: 12/08/24 Source: Developed by Chaparrita Kiran.W. Saurav, Domingo Cummings and colleagues, with an educational anthony from [employer]. Review of Systems Const Details: Const Denies chills, Denies fatigue, Denies fever(s), Denies headache(s) and Denies weakness ENT Denies dizziness and Denies headache(s) Card Denies chest pain, Denies lightheadedness, Denies dyspnea and Denies other (Palpitations) Resp Denies cough, Denies dyspnea, Denies wheezing and Denies other ( shortness of breath) GI Denies abdominal pain, Denies melena, Denies hematochezia, Denies change in bowel habits, Denies dyspepsia and Denies nausea Denies hematuria and Denies dysuria Musc Denies abnormal gait, Denies myalgias, Denies arthralgias, Denies numbness and Denies tingling Skin/Breast Denies rash, Denies unusual bruising and Denies wounds Neuro Denies abnormal gait, Denies dizziness, Denies headache(s), Denies memory loss, Denies numbness, Denies Sensory deficit (Neuro), Denies tingling and Denies weakness Psych Denies anxiety, Denies depression, Denies memory loss Endo Denies cold intolerance, Denies fatigue, Denies heat intolerance, Denies polydipsia and Denies polyuria Aller/Immun Denies wheezing Physical exam (Primary Care) Vital Signs: Last Vital Signs Pulse 54 06/22/25 11:17 Resp 16 06/22/25 11:17 BP 112/60 06/22/25 11:48 Pulse Ox 98 06/22/25 11:17 Oxygen Delivery Method Room Air 06/22/25 11:17 BMI result Body Mass Index 25.4 Tobacco/Smoking Status: Tobacco use Status Tobacco use date assessed 06/22/25 06/22/25 11:36 Patient Tobacco Use Status Former Tobacco user 06/22/25 11:09 Tobacco use type Cigarette 06/22/25 11:09 e-Cigarette/Vaping Use Never Used 06/22/25 11:09 Thrive Assessment: Date of Thrive Assessment Date Thrive assessed 11/13/24 06/22/25 11:09 Currently or been in a relationship where the following occur: No concerns reported Const Other: General: no acute distress and well developed Nutritional Appearance: well nourished Orientation/consciousness: patient oriented x3 [facility] Head: Yes normocephalic and Yes atraumatic Eyes General: appearance normal, both eyes and all related structures Pupils: Equal, round and reactive pupils present EOM: EOMs intact bilaterally Resp Effort & Inspection: normal respiratory effort Auscultation: clear to auscultation bilaterally Cardio Rate: regular rate Rhythm: regular rhythm Heart sounds: S1 normal heart sound present, S2 normal heart sound present, no gallops, no murmurs and no rubs GI Palpation (GI): No Abdominal aortic bruit present, Soft to palpation, nontender, No hepatosplenomegaly present and No Rebound tenderness present Auscultation: normal bowel sounds General: Yes no CVA tenderness Back/Spine/Pelvis Back: no CVA tenderness Cervical Spine: cervical ROM normal and No Cervical spine tenderness Thoracic/Lumbar Spine: thoraco-lumbar ROM normal, No pain with thoraco-lumbar ROM, No thoracic spinal tenderness and No lumbar spinal tenderness Extrem General: Yes normal to inspection, No edema and No calf tenderness Skin General: warm and dry. Normal skin color. Normal skin turgor Neuro General: patient oriented x3, gait normal and no focal neuro deficit Cranial nerves: Yes Equal, round and reactive pupils present Cognition (Neuro): normal cognition Gait exam (Neuro): Normal gait present Sensory Exam: No Sensory deficit (Neuro) Psych Appearance: grossly normal Affect: normal affect Attitude: cooperative Thought process: Normal thought process present Results AMB Hemoglobin A1c AMB Hemoglobin A1c 5.6 % Last Edit by Nikki Jones MA on 06/22/25 13:12 Results Reviewed Results Reviewed: Laboratory Last Values Hgb A1c (Clinic) 5.6 % (4.0-6.0) 06/22/25 13:10 Coding Level of Care Code Est Pt Level 3 (36294) Diagnoses Essential hypertension I10 Hypertension type: essential hypertension Type 2 diabetes mellitus with diabetic polyneuropathy, without long-term current use of insulin E11.42 Diabetes mellitus chcf insulin use: without production graphic designer use Assessment & Plan Assessment & Plan (1) HTN (hypertension): Code(s): I10 - Essential (primary) hypertension Category: Medical Qualifiers: Hypertension type: essential hypertension Qualified Code(s): I10 - Essential (primary) hypertension Plan: Resting blood pressure is 112/60, within goal of less than 130/80. Continue current treatment regimen. Low-sodium diet encouraged. Follow-up in 3 months. Verbalized understanding and agreed with the plan. (2) Type 2 diabetes mellitus with diabetic polyneuropathy: Code(s): E11.42 - Type 2 diabetes mellitus with diabetic polyneuropathy Category: Medical Qualifiers: Diabetes mellitus chcf insulin use: without chcf use Qualified Code(s): E11.42 - Type 2 diabetes mellitus with diabetic polyneuropathy Plan: A1c today is 5.6%, within goal of less than 7.0%. Previous A1c was 5.7%. Continue current treatment regimen. ADA diet and routine exercise encouraged. Encouraged to perform fasting lipid panel blood work and urine microalbumin before next visit. Follow-up in 3 months or sooner with symptoms or concerns. Verbalized understanding and agreed with the plan. Orders: Orders Microalbumin, Random (w Creat) Today E11.42 - Type 2 diabetes mellitus with diabetic polyneuropathy Lipid Panel Today E11.42 - Type 2 diabetes mellitus with diabetic polyneuropathy, E78.5 - Hyperlipidemia, unspecified AMB Hemoglobin A1c Today Z13.9 - Encounter for screening, unspecified Referrals Podiatry Referral E11.42 - Type 2 diabetes mellitus with diabetic polyneuropathy Medications: Refilled blood sugar diagnostic (FreeStyle Lite Strips) USE TO TEST BLOOD SUGAR FOUR TIMES A DAY 100 ea 11RF E11.21 - Type 2 diabetes mellitus with diabetic nephropathy, N18.31 - Chronic kidney disease, stage 3a, Z79.4 - marketing support specialist (current) use of insulin
[2025-06-22 11:17] VITALS: BP 134/63; PULSE 54; RESP 16; O2SAT 98; BMI 25.4
--- OUTSIDE RECORDS SUMMARY | 2025-06-22 11:37 | XMS_ITS | Clinical Summary ---
Author Organization [address] [place] [address] Address [address] [place] [address] Phone Care Team Providers Care Photogrammetric Stereo Compiler Name Role Phone Nikki Naik MALOU Primary Care Provider [phone] Allergies No known active allergies Medications ketoconazole (NIZORAL) 2 % cream Apply topically 1 (one) time each day. Apply topical in the morning time to the bottoms of the feet bilaterally 60 g 2 Active Social History Tobacco Use Types Packs/Day Years [...] 09/26/2024 11:55 AM EST Plan of Treatment Health Maintenance Due Date Last Done Comments Zoster Vaccines (1 of 2) 1981 Pneumococcal Vaccine: 50+ Years (2 of 2 - PCV) 12/10/2020 12/11/2019 RSV Immunization Adult Patients (1 - Risk 60-74 years 1-dose series) 2022 COVID-19 Vaccine (3 - Pfizer risk series) 10/15/2022 09/17/2022, 11/17/2021 Cholesterol Screening (Lipid Panel) 09/14/2024 Colorectal Cancer Screening: Colonoscopy 09/14/2024 HIV Screening 09/14/2024 Hepatitis C Screening 09/14/2024 Social Influencers of Health Screening 09/14/2024 Hypertension/CHF/CAD Annual BMP Blood Test 09/26/2024 Depression Screening 10/04/2024 Influenza Vaccine (#1) 2025 4, 09/17/2022, 12/26/2019 DTaP,Tdap,and Td Vaccines (2 - [...] patient's age to complete this topic Insurance [facility] [place] [address] Care Teams Photogrammetric Stereo Compiler Relationship Specialty Start Date End Date Nikki Naik FNP [address] [place] [address] PCP - General Family Medicine 09/14/24
--- OUTSIDE RECORDS SUMMARY | 2025-06-22 11:37 | XMS_ITS | Encounter Summary ---
Author Organization [facility] Address [address] [facility] [address] [place] [address] Phone Care Team Providers Care Race Board Attendant Name Role Phone Brit Smallwood STEEL DIE PRESS SET UP OPERATOR Primary Care Provider [phone] Reason for Visit * Reason Comments Med Refill Encounter Details Date Type Department Care Team (Late st Contact Info) Description 12/09/2023 Refill [facility] [address] [facility] [address] [place] [phone] Antonio Carter MD [address] [facility] [address] [place] [phone] Social History Tobacco Use Types Packs/Day Years [...] on filedocumented in this encounter Care Teams Race Board Attendant Relationship Specialty Start Date End Date Brit Smallwood NP [address] [place] [phone] PCP - General Nurse Practitioner 02/13/21 documented as of this encounter
--- OUTSIDE RECORDS SUMMARY | 2025-06-22 11:37 | XMS_ITS | Encounter Summary ---
Author Organization [facility] Address [address] [address] Phone Care Team Providers Care Emr Trainer Name Role Phone Brit Smallwood NEON SIGN WORKER Primary Care Provider [phone] Reason for Visit * Reason Comments Med Refill Encounter Details Date Type Department Care Team ([facility] st Contact Info) Description 11/01/2024 Refill [facility] [address] [address] Ermias Sandoval MD [address] [address] Social History Tobacco Use Types [...] on filedocumented in this encounter Care Teams Emr Trainer Relationship Specialty Start Date End Date Brit Smallwood NP [facility] [place], [place] [phone] PCP - General Nurse Practitioner 02/13/21 documented as of this encounter
--- OUTSIDE RECORDS SUMMARY | 2025-06-22 11:37 | XMS_ITS | Encounter Summary ---
Author Organization [facility] Address [address] [address] Phone Care Team Providers Care Licensed Midwife Name Role Phone Brit Smallwood HOGSHEAD HEAD MATCHER Primary Care Provider [phone] Reason for Visit * Reason Comments Med Refill Encounter Details Date Type Department Care Team ([facility] st Contact Info) Description 12/07/2024 Refill [facility] [address] [address] Ermias Sandoval MD [address] [address] Social History Tobacco Use [...] on filedocumented in this encounter Care Teams Licensed Midwife Relationship Specialty Start Date End Date Brit Smallwood NP [facility] [place], [place] [phone] PCP - General Nurse Practitioner 02/13/21 documented as of this encounter
--- OUTSIDE RECORDS SUMMARY | 2025-06-22 11:37 | XMS_ITS | Encounter Summary ---
Author Organization [facility] Address [address] [address] Phone Care Team Providers Care Illuminating Engineer Name Role Phone Brit Smallwood EGG SEPARATOR Primary Care Provider [phone] Reason for Visit * Reason Comments Med Refill Encounter Details Date Type Department Care Team ([facility] st Contact Info) Description 11/07/2024 Refill [facility] [address] [address] Ermias Sandoval MD [address] [address] Social History Tobacco Use Types [...] on filedocumented in this encounter Care Teams Illuminating Engineer Relationship Specialty Start Date End Date Brit Smallwood NP [facility] [place], [place] [phone] PCP - General Nurse Practitioner 02/13/21 documented as of this encounter
--- OUTSIDE RECORDS SUMMARY | 2025-06-22 11:37 | XMS_ITS | Encounter Summary ---
Author Organization [facility] Address [address] [address] Phone Care Team Providers Care Sales Systems Engineer Name Role Phone Brit Smallwood MANAGER ACCESS Primary Care Provider [phone] Reason for Visit * Reason Comments Med Refill Encounter Details Date Type Department Care Team ([facility] st Contact Info) Description 11/30/2024 Refill [facility] [address] [address] Ermias Sandoval MD [address] [phone] Social History Tobacco Use Types [...] on filedocumented in this encounter Care Teams Sales Systems Engineer Relationship Specialty Start Date End Date Brit Smallwood NP [facility] [place], [place] [phone] PCP - General Nurse Practitioner 02/13/21 documented as of this encounter
--- OUTSIDE RECORDS SUMMARY | 2025-06-22 11:37 | XMS_ITS | Encounter Summary ---
Author Organization [facility] Address [address] [facility] [address] [place] [address] Phone Care Team Providers Care Humanities Division Chair Name Role Phone Brit Smallwood [place] Primary Care Provider [phone] Reason for Visit * Reason Comments Med Refill Encounter Details Date Type Department Care Team (Late st Contact Info) Description 12/02/2023 Refill [facility] [address] [facility] [address] [place] [phone] Antonio Carter MD [address] [facility] [address] [place] [phone] Social History Tobacco Use Types Packs/Day Years [...] EST With the assistance of Radha speaking Guatemalan a call was placed to the patient regarding a medication refill request. The patients rf microwave engineer was informed that in order to refill medications the patient needs a follow up visit. The patient states he will decide if he would like to continue at [facility] or follow his previous Consulting Practice Director. He will contact the office with his decision. A 30 day refillis available to the patient. documented in this encounter Plan of Treatment Not on file documented as of this encounter Visit Diagnoses Not on filedocumented in this encounter Care Teams Humanities Division Chair Relationship Specialty Start Date End Date Brit Smallwood NP [address] [place] [phone] PCP - General Nurse Practitioner 02/13/21 documented as of this encounter
--- OUTSIDE RECORDS SUMMARY | 2025-06-22 11:38 | XMS_ITS | Clinical Summary ---
Author Organization [facility] Address [address] [facility] [place] [address] Phone Care Team Providers Care Office Worker Name Role Phone Brit Smallwood NP Primary Care Provider [phone] Allergies Active Allergy Reactions Criticality Noted Date [...] Encounters Date Type Department Care Team Description 06/07/2025 Refill [facility] [address] [address] Lazaro Valadez MD 05/17/2025 Refill [facility] [address] [address] Lazaro Valadez MD 04/13/2025 Refill [facility] [address] [address] Lazaro Valadez MD from Last 3 Months Social History [...] Diabetes: Visual Foot Exam 11/01/2024 Influenza Vaccine (#1) 2025 Hepatitis B Vaccine Aged Out No longe r eligible based on patient's age to complete this topic [place] [address] [place] [id number] Medicaid Care Teams Office Worker Relationship Specialty Start Date End Date Brit Smallwood NP [address] [place] [address] [phone] PCP - General Nurse Practitioner 02/13/21
[2025-06-22 11:48] VITALS: BP 112/60
== END 2025-06-22 11:54 | disposition home or self-care (01) ==
LOC: HO.HMCFM 10:58
PROVIDERS: PCP Nurse Practitioner Family; Visit Provider Nurse Practitioner Family
DX: I10 Essential (primary) hypertension (principal); E11.42 Type 2 diabetes mellitus with diabetic polyneuropathy; Z13.9 Encounter for screening, unspecified

== ENCOUNTER → 2025-06-22 10:57 | Outpatient (BNVA) | payer OTHER, SELFPAY | PROVIDERS: PCP Nurse Practitioner Family; Visit Provider Nurse Practitioner Family | DX: I12.9 Hypertensive chronic kidney disease with stage 1 through stage 4 chronic kidney disease, or unspecified chronic kidney disease (principal); E11.22 Type 2 diabetes mellitus with diabetic chronic kidney disease; E11.21 Type 2 diabetes mellitus with diabetic nephropathy; N18.31 Chronic kidney disease, stage 3a; E11.42 Type 2 diabetes mellitus with diabetic polyneuropathy; E78.5 Hyperlipidemia, unspecified; Z79.4 Long term (current) use of insulin | CPT/HCPCS: 83036; 99212 ==

== ENCOUNTER → 2025-06-22 23:59 | Outpatient (BNV) | payer OTHER, SELFPAY | PROVIDERS: PCP Nurse Practitioner Family; Visit Provider Family Medicine | DX: D64.9 Anemia, unspecified (principal); K59.00 Constipation, unspecified; J42 Unspecified chronic bronchitis | CPT/HCPCS: G0179 ==

== ENCOUNTER 2025-07-06 11:13 | Outpatient (AMB) | payer OTHER, SELFPAY ==
--- NOTE | 2025-07-06 11:29 | MHC.PC.OV ---
Vital Signs 07/06/25 11:41 Height 5 ft 8 in Weight 164 lb 8 oz BMI 25.0 BP 137/62 Blood Pressure Location Rt brachial Position Sitting Respiration 16 Pulse 51 Pulse Source Palpation Temp 97.8 F Temp Source Oral Pulse Oximetry (%) 100 Oxygen Delivery Method Room Air Intake Visit Reasons: LT shoulder pain Intake Note: patient here for Left shoulder pain Television Newscast Director Required: No Accompanied by: Unknown Followed by:: program employee Allergies amlodipine (From [employer] Allergy (Severe, Verified 07/06/25 12:05) due to poor renal function ibuprofen Allergy (Severe, Verified 07/06/25 12:05) 2/2 renal function Medication List - Last Reviewed 07/06/25 by Nikki Jones MA acetaminophen (Tylenol) 325 mg PO QID PRN acetaminophen (Tylenol) 650 mg (2 x 325 mg) PO Q6H PRN 30 days albuterol sulfate 90 mcg/actuation 2 puffs inhalation Q6H PRN MDD 8 apixaban (Eliquis) 5 mg PO BID ascorbic acid (vitamin C) 500 mg PO BID 3 months aspirin 81 mg PO QAM 90 days atorvastatin 80 mg PO BEDTIME 90 days blood sugar diagnostic (FreeStyle Lite Strips) USE TO TEST BLOOD SUGAR FOUR TIMES A DAY blood-glucose meter (FreeStyle Lite Meter kit) As directed brexpiprazole (Rexulti) 2 mg PO DAILY cholecalciferol (vitamin D3) 25 mcg PO DAILY 90 days dextrose (Dex4 Glucose) 15 gm pRN hypoglycemia dulaglutide (Trulicity) 3 mg (0.5 mL) subcut QWEEK empagliflozin (Jardiance) 10 mg PO QAM fluoxetine (Prozac) 40 mg PO DAILY [re[place] 30mg/7.5ml PO Q6H PRN] glucose 15 grams PO Q15M PRN hydralazine 50 mg See Protocol PO TID 90 days hydrocortisone 1% 1 appl topical TID PRN insulin degludec (Tresiba FlexTouch U-200 insulin) 46 units (0.23 mL) subcut DAILY 30 days ketoconazole 2% appl topical lactulose (Enulose) 30 mL PO .q72 h PRN lancets (Easy Touch Safety Lancets) USE 2-3 TIMES A DAY DIRECTED FOR BLOOD GLUCOSE MONITORING lidocaine 4% (AsperFlex (lidocaine)) 1 patch topical DAILY PRN lorazepam (Ativan) 0.5 mg PO DAILY PRN losartan 75 mg (1.5 x 50 mg) PO BID metoprolol succinate ER 25 mg PO BEDTIME 28 days miscellaneous medical supply R AFO, Daily As directed, 999 days. Disp #1 miscellaneous medical supply Right lateral sole wedge as directed; multivitamin,tx-minerals (Multi-Vitamin HP/Minerals capsule) 1 cap PO DAILY nifedipine ER (Procardia XL) 30 mg PO DAILY 90 days pen needle, diabetic (Easy Touch) 1 ea miscellaneous TID 28 days polyethylene glycol 3350 17 grams PO BID sennosides (senna) 8.6 mg PO BID tamsulosin (Flomax) 0.4 mg PO BEDTIME 90 days trazodone 200 mg PO BEDTIME ursodiol 300 mg PO BID Tobacco use date assessed: 07/06/25 Dental Screening Dental Screen Date: 07/06/25 Did you have a dental visit in the last 12 months?: Yes Did you have a dental problem in the last 6 months where you did not have access to dental care?: No Was dental information given to patient?: Patient has dentist HPI HPI Comments History of Present Illness Details 64-year-old Prydeinig-speaking male presents from custodial with complaints of left shoulder pain. He is accompanied by custodial staff. He notes that the pain started over 2 weeks ago. Onset was rapid. He describes the pain as sharp, intermittent, 7/10 on the pain scale. He denies fall, injury, or trauma. He does not take Tylenol daily or regularly. He does not take lidocaine patch. He denies any associated symptoms. Interpretation by the custodial staff per patient's preference. [facility] Medical History Skin lesion Squamous cell carcinoma of skin Encephalopathy Cerebrovascular accident Hypoglycemia unawareness associated with type 2 diabetes mellitus Diabetes type 2, uncontrolled Type 2 diabetes mellitus with diabetic polyneuropathy Essential hypertension Epigastric pain Skin cancer Postoperative bleeding from incision Skin lesion Stroke Type 2 diabetes mellitus with chronic kidney disease Chronic kidney disease, stage 3 Aphagia Unsteady gait Anemia Hypertensive chronic kidney disease with stage 1 through stage 4 chronic kidney disease, or unspecified chronic kidney disease CKD (chronic kidney disease) Hearing loss Preglaucoma Vascular device, implant, or graft complication Bronchitis HTN (hypertension) Hyperlipidemia Hyperlipidemia Vitamin D deficiency Vitamin D deficiency Constipation GERD (gastroesophageal reflux disease) Diabetes Hemiplegia Surgical History History of removal of cyst (~02/09/22) Hx of cataract surgery History of surgical removal of skin lesion History of exploratory laparotomy Family History Father Myocardial infarction Mother Throat cancer Diabetes Family/Other FH: mental illness Brother In good health Sister In good health Sister In good health Daughter In good health Social History 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 Household Members Other:: custodial Housing: House Do you presently have visiting nurse or other home services: Yes Alcohol intake: current Alcohol intake frequency: does not drink Patient Tobacco Use Status: Former Tobacco user Tobacco use type: Cigarette Cigarette Packs Per Day: 2 Cigarettes Per Day: 40.0 Years Smoked: 16 Packs Per Year: 32 Packs per year/per ci.00 e-Cigarette/Vaping Use: Never Used Second Hand Smoke Exposure: No Substance Use Type: Marijuana Advance Directives Date on File: 07/04/24 service: No Current occupational status: disabled Current occupational exposures/hazards: No Cognitive needs: Yes (walker) Hearing needs: No Vision needs: No Questionnaire Thrive Questionnaire Date Thrive assessed: 11/13/24 PARRISH-7 AMB Questionnaire PARRISH-7 Date PARRISH - 7 assessed: 12/08/24 Source: Developed by Drs. Amari Ortega, Chaparrita Mg, Domingo Cummings and colleagues, with an educational anthony from [employer]. Review of Systems Const Details: Const Denies chills, Denies fatigue, Denies fever(s), Denies headache(s) and Denies weakness ENT Denies dizziness and Denies headache(s) Card Denies chest pain, Denies lightheadedness, Denies dyspnea and Denies other (Palpitations) Resp Denies cough, Denies dyspnea, Denies wheezing and Denies other ( shortness of breath) GI Denies abdominal pain, Denies melena, Denies hematochezia, Denies change in bowel habits, Denies dyspepsia and Denies nausea Denies hematuria and Denies dysuria Musc Reports as per HPI Skin/Breast Denies rash, Denies unusual bruising and Denies wounds Neuro Denies abnormal gait, Denies dizziness, Denies headache(s), Denies memory loss, Denies numbness, Denies Sensory deficit (Neuro), Denies tingling and Denies weakness Psych Denies anxiety, Denies depression, Denies memory loss Endo Denies cold intolerance, Denies fatigue, Denies heat intolerance, Denies polydipsia and Denies polyuria Aller/Immun Denies wheezing Physical exam (Primary Care) Vital Signs: Last Vital Signs Temp 97.8 F 07/06/25 11:41 Pulse 51 07/06/25 11:41 Resp 16 07/06/25 11:41 BP 137/62 07/06/25 11:41 Pulse Ox 100 07/06/25 11:41 Oxygen Delivery Method Room Air 07/06/25 11:41 BMI result Body Mass Index 25.0 Tobacco/Smoking Status: Tobacco use Status Tobacco use date assessed 07/06/25 07/06/25 11:46 Patient Tobacco Use Status Former Tobacco user 07/06/25 11:31 Tobacco use type Cigarette 07/06/25 11:31 e-Cigarette/Vaping Use Never Used 07/06/25 11:31 Thrive Assessment: Date of Thrive Assessment Date Thrive assessed 11/13/24 07/06/25 11:31 Const Other: General: no acute distress and well developed Nutritional Appearance: well nourished Orientation/consciousness: patient oriented x3 HENMT Head: Yes normocephalic and Yes atraumatic Eyes General: appearance normal, both eyes and all related structures Pupils: Equal, round and reactive pupils present EOM: EOMs intact bilaterally Resp Effort & Inspection: normal respiratory effort Auscultation: clear to auscultation bilaterally Cardio Rate: regular rate Rhythm: regular rhythm Heart sounds: S1 normal heart sound present, S2 normal heart sound present, no gallops, no murmurs and no rubs GI Palpation (GI): No Abdominal aortic bruit present, Soft to palpation, nontender, No hepatosplenomegaly present and No Rebound tenderness present Auscultation: normal bowel sounds General: Yes no CVA tenderness Back/Spine/Pelvis Back: no CVA tenderness Cervical Spine: cervical ROM normal and No Cervical spine tenderness Thoracic/Lumbar Spine: thoraco-lumbar ROM normal, No pain with thoraco-lumbar ROM, No thoracic spinal tenderness and No lumbar spinal tenderness Extrem General: Yes normal to inspection, No edema and No calf tenderness. Tenderness to palpation and passive ROM of the left shoulder, no tenderness with active ROM, no overt injury or trauma Skin General: warm and dry. Normal skin color. Normal skin turgor Neuro General: patient oriented x3, gait normal and no focal neuro deficit Cranial nerves: Yes Equal, round and reactive pupils present Cognition (Neuro): normal cognition Gait exam (Neuro): Normal gait present Sensory Exam: No Sensory deficit (Neuro) Psych Appearance: grossly normal Affect: normal affect Attitude: cooperative Thought process: Normal thought process present Coding Level of Care Code Est Pt Level 3 (97488) Diagnoses Left shoulder pain M25.512 Assessment & Plan Assessment & Plan (1) Left shoulder pain: Code(s): M25.512 - Pain in left shoulder Category: Medical Plan: Reports atraumatic left shoulder pain for over 2 weeks. Tenderness to palpation and passive ROM of the left shoulder, no tenderness with active ROM, no overt injury or trauma. Advised to take Tylenol and lidocaine patch as prescribed. Warm/cold compresses encouraged. Follow-up with worsening or new symptoms. Verbalized understanding and agreed with the plan.
[2025-07-06 11:41] VITALS: BP 137/62; PULSE 51; RESP 16; TEMP 36.6; O2SAT 100; BMI 25.0
--- OUTSIDE RECORDS SUMMARY | 2025-07-06 12:26 | XMS_ITS | Encounter Summary ---
Author Organization [facility] Address [address] [facility] [address] [place] [address] Phone Care Team Providers Care Manager Risk Management Name Role Phone Brit Smallwood NATIVIDAD Primary Care Provider [phone] Reason for Visit * Reason Comments Med Refill Encounter Details Date Type Department Care Team (Late st Contact Info) Description 12/02/2023 Refill [facility] [address] [facility] [address] [place] [phone] Antonio Carter MD [address] [facility] [address] [place] [phone] Social History Tobacco Use Types Packs/Day Years [...] EST With the assistance of Radha speaking Bahraini a call was placed to the patient regarding a medication refill request. The patients retail office manager was informed that in order to refill medications the patient needs a follow up visit. The patient states he will decide if he would like to continue at [facility] or follow his previous [facility]ast [facility]. He will contact the office with his decision. A 30 day refillis available to the patient. documented in this encounter Plan of Treatment Not on file documented as of this encounter Visit Diagnoses Not on filedocumented in this encounter Care Teams Manager Risk Management Relationship Specialty Start Date End Date Brit Smallwood NP [address] [place] [address] PCP - General Nurse Practitioner 02/13/21 documented as of this encounter
--- OUTSIDE RECORDS SUMMARY | 2025-07-06 12:26 | XMS_ITS | Encounter Summary ---
Author Organization [facility] Address [address] [address] Phone Care Team Providers Care Disassembler Product Name Role Phone Brit Smallwood OIL WELL FISHING TOOL OPERATOR Primary Care Provider [phone]- [phone] Reason for Visit * Reason Comments Med Refill Encounter Details Date Type Department Care Team ([facility] st Contact Info) Description 11/07/2024 Refill [facility] [address] [phone] Ermias Sandoval MD [address] [phone] Social History Tobacco Use Types [...] on filedocumented in this encounter Care Teams Disassembler Product Relationship Specialty Start Date End Date Brit Smallwood NP [facility] [place], [place] [phone] PCP - General Nurse Practitioner 02/13/21 documented as of this encounter
--- OUTSIDE RECORDS SUMMARY | 2025-07-06 12:26 | XMS_ITS | Encounter Summary ---
Author Organization [facility] Address [address] [facility] [address] [place] [address] Phone Care Team Providers Care Film Critic Name Role Phone Brit Smallwood EQUITY STRUCTURER Primary Care Provider [phone]- [phone] Reason for Visit * Reason Comments Med Refill Encounter Details Date Type Department Care Team (Late st Contact Info) Description 12/09/2023 Refill [facility] [address] [facility] [address] [place] [phone] Antonio Carter MD [address] [facility] [address] [place] [phone] Social History Tobacco Use Types Packs/Day Years [...] on filedocumented in this encounter Care Teams Film Critic Relationship Specialty Start Date End Date Brit Smallwood NP [address] [place] [phone] PCP - General Nurse Practitioner 02/13/21 documented as of this encounter
--- OUTSIDE RECORDS SUMMARY | 2025-07-06 12:26 | XMS_ITS | Encounter Summary ---
Author Organization [facility] Address [address] [address] Phone Care Team Providers Care Data Processing Auditor Name Role Phone Brit Smallwood ACID CONCENTRATOR Primary Care Provider [phone] Reason for Visit * Reason Comments Med Refill Encounter Details Date Type Department Care Team ([facility] st Contact Info) Description 12/07/2024 Refill [facility] [address] [phone] Ermias Sandoval MD [address] [address] Social History Tobacco Use Types [...] on filedocumented in this encounter Care Teams Data Processing Auditor Relationship Specialty Start Date End Date Brit Smallwood NP [facility] [place], [place] [phone] PCP - General Nurse Practitioner 02/13/21 documented as of this encounter
--- OUTSIDE RECORDS SUMMARY | 2025-07-06 12:26 | XMS_ITS | Encounter Summary ---
Author Organization [facility] Address [address] [address] Phone Care Team Providers Care Class C Truck Driver Name Role Phone Brit Smallwood SATELLITE TV INSTALLER Primary Care Provider [phone]- [phone] Reason for Visit * Reason Comments Med Refill Encounter Details Date Type Department Care Team ([facility] st Contact Info) Description 11/30/2024 Refill [facility] [address] [phone] Ermias Sandoval MD [address] [phone] Social History Tobacco Use Types [...] on filedocumented in this encounter Care Teams Class C Truck Driver Relationship Specialty Start Date End Date Brit Smallwood NP [facility] [place], [place] [phone] PCP - General Nurse Practitioner 02/13/21 documented as of this encounter
--- OUTSIDE RECORDS SUMMARY | 2025-07-06 12:26 | XMS_ITS | Encounter Summary ---
Author Organization [facility] Address [address] [address] Phone Care Team Providers Care Purchasing And Fiscal Clerk Name Role Phone Brit Smallwood COMMISSIONS SPECIALIST Primary Care Provider [phone]- [phone] Reason for Visit * Reason Comments Med Refill Encounter Details Date Type Department Care Team ([facility] st Contact Info) Description 11/01/2024 Refill [facility] [address] [phone] Ermias Sandoval MD [address] [phone] Social History Tobacco Use Types [...] on filedocumented in this encounter Care Teams Purchasing And Fiscal Clerk Relationship Specialty Start Date End Date Brit Smallwood NP [facility] [place], [place] [phone] PCP - General Nurse Practitioner 02/13/21 documented as of this encounter
--- OUTSIDE RECORDS SUMMARY | 2025-07-06 12:26 | XMS_ITS | Clinical Summary ---
Author Organization [address] [facility] Address [address] [place] [address] Phone Care Team Providers Care Natural Gas Plant Technician Name Role Phone Nikki Naik SHEET METAL ASSEMBLER Primary Care Provider [phone] Allergies No known active allergies Medications ketoconazole [...] Care Team (Late st Contact Info) Description 07/10/2025 2:00 PM EDT Office Visit Orthopedic Surgery - [place] [address] [phone] Mao Evans DPM [address] [address] Health Maintenance Due Date Last Done Comments Colorectal Cancer Screening: Colonoscopy 1960 Zoster Vaccines (1 of 2) 1981 Pneumococcal Vaccine: 50+ Years (2 of 2 - PCV) 12/10/2020 12/11/2019 RSV Immunization Adult Patients (1 - Risk 60-74 years 1-dose series) 2022 COVID-19 Vaccine (3 - Pfizer risk series) 10/15/2022 09/17/2022, 11/17/2021 Cholesterol Screening (Lipid Panel) 09/14/2024 HIV Screening 09/14/2024 Hepatitis C Screening [...] patient's age to complete this topic Insurance [facility] Care Teams Natural Gas Plant Technician Relationship Specialty Start Date End Date Nikki Naik FNP [address] [place] [address] PCP - General Family Medicine 09/14/24
--- OUTSIDE RECORDS SUMMARY | 2025-07-06 12:27 | XMS_ITS | Clinical Summary ---
Author Organization [facility] Address [address] [place] [address] Phone Care Team Providers Care Automotive Specialty Technician Name Role Phone Brit Smallwood NP Primary Care Provider [phone]- [phone] Allergies Active Allergy Reactions Criticality Noted Date [...] Encounters Date Type Department Care Team Description 07/03/2025 Refill [facility] [address] [facility] [address] [place] [phone] Antonio Carter MD 06/07/2025 Refill [facility] [address] [place] [address] [address] [place] [phone] Lazaro Valadez MD 05/17/2025 Refill [facility] [address] [place] [address] [address] [place] [phone] Lazaro Valadez MD 04/13/2025 Refill [facility] [address] [place] [phone] Lazaro Valadez MD from Last 3 Months [...] patient's age to complete this topic Insurance Medicaid Medicaid Care Teams Automotive Specialty Technician Relationship Specialty Start Date End Date Brit Smallwood NP [address] [place] [address] PCP - General Nurse Practitioner 02/13/21
--- OUTSIDE RECORDS SUMMARY | 2025-07-06 12:27 | XMS_ITS | Encounter Summary ---
Author Organization [facility] Address [address] [facility] [address] [place] [address] Phone Care Team Providers Care Computer Technology Trainer Name Role Phone Brit Smallwood BOTTLE CAPPER Primary Care Provider [phone]- [phone] Reason for Visit * Reason Comments Med Refill Encounter Details Date Type Department Care Team (Late st Contact Info) Description 07/03/2025 Refill [facility] [address] [facility] [address] [place] [phone] Antonio Carter MD [address] [facility] [address] [place] [phone] Social History Tobacco Use Types Packs/Day Years [...] on filedocumented in this encounter Care Teams Computer Technology Trainer Relationship Specialty Start Date End Date Brit Smallwood NP [address] [place] [phone] PCP - General Nurse Practitioner 02/13/21 documented as of this encounter
== END 2025-07-06 13:53 | disposition home or self-care (01) ==
LOC: HO.HMCFM 11:13
PROVIDERS: PCP Nurse Practitioner Family; Visit Provider Nurse Practitioner Family
DX: M25.512 Pain in left shoulder (principal)

== ENCOUNTER → 2025-07-06 11:13 | Outpatient (BNVA) | payer OTHER, SELFPAY | PROVIDERS: PCP Nurse Practitioner Family; Visit Provider Nurse Practitioner Family | DX: M25.512 Pain in left shoulder (principal) | CPT/HCPCS: 99212 ==

== ENCOUNTER 2025-07-14 15:01 | Emergency (ER) | payer OTHER, SELFPAY ==
--- OUTSIDE RECORDS SUMMARY | 2025-07-10 14:00 | XMS_ITS | Encounter Summary ---
Author Organization [employer] [facility] Address [address] [place] [address] Care Team Providers Care Cylinder Machine Operator Name Role Phone Heena, Nikki ANIMAL CARETAKER Primary Care Provider [phone] Reason for Visit * Reason Comments DM Foot Care Controlled type 2 di abetes with neuropathy (CMS/HCC V24, CMS/HCC V28)Arthritis of both feetHammertoes of both feetTinea pedis of both feetDermatophytosis, nail Encounter Details Date Type Department Care Team (Late st Contact Info) Description 07/10/2025 2:00 PM EDT Office Visit Orthopedic Surgery - [place] [phone] [facility] [address] [place] [address] [phone] Mao Evans DPM [address] [address] Controlled type 2 diabetes with neuropathy (CMS/HCC [...] on file documented as of this encounter Progress Notes * Mao Evans DPM - 07/10/2025 2:00 PM EDT Referring MD: heena Last PCP visit: 05/28/2025 IDENTIFIER: Kristina Weaver is a 64 y.o. year old male who presents for consultation. CC: Pain in feet HPI: 64-year-old diabetic male returns office for multiple forefoot deformities Patient states that they have been diabetic for the past few years and have some tingling numbness of the feet bilaterally. Notes he has not had any ulcerations or openings since his previous visit Patient relates that his nails are thickened and misshapened Patient notes he has continued scaliness to the bottoms of the feet Patient with minimal other pedal complaints at this time. Patient's FBS this AM was 108 Recent A1C is %. 6.6 ROS: GENERAL: [...] have been marked as taking for the 07/10/25 encounter (Office Visit) with Mao Evans DPM. ALLERGIES: @ALL@ PHYSICAL EXAM: There were no vitals taken for this visit. PODIATRIC EXAMINATION: GENERAL: Patient appears well nourished, with NAD. VASCULAR: Dorsalis pedis pulses are 2/4 bilaterally and Posterior tibial pulses are 2/4 bilaterally. Capillary filling time within normal limits the digits. No pallor on elevation or rubor on dependency. Positive hair growth. No varicosities. Denies rest pain or claudication pain. NEUROLOGICAL: Sharp/dull sensation intact, protective sensation diminished on [place]. Multiple peripheral neuropathies bilaterally. ORTHOPEDIC: Good muscle strength 5/5 of all flexors and extensors. Dorsi flexion of ankle ,10 degrees, plantar flexion WNL. No muscle atrophy. Rigid contractures of digits 2 through 5. Increased pressure to the metatarsal heads of each feet bilaterally. Arthritic changes to the midfoot bilaterally. DERMATOLOGICAL:.Continued annular scaling to the plantar aspect of the feet with moccasin distribution bilaterally. Nails are elongated dystrophic discolored x 10 with subungual debris BIOMECHANICS: STJ ROM wnl, MTJ ROM wnl, 1st MPJ ROM wnl. IMPRESSION: 1. Controlled type 2 diabetes with neuropathy ([facility] V24, [facility] V28) 2. Arthritis of both feet 3. Hammertoes of both feet 4. Tinea pedis of both feet 5. Dermatophytosis, nail PLAN: Pt was seen and examined, history reviewed. Patient was educated on the importance of keeping tight glucose control in order to limit chance for ulceration infection amputation in the future Patient understands that the symptoms associated with his arthritic changes in the midfoot bilaterally he may use topical and p.o. anti-inflammatory medications to limit the flareups Patient was educated on the importance of using antifungal medication to the feet bilaterally patient has continued contracture of the digits. Patient encouraged to use a hammertoe crutch in order to decrease Pressure sores Nail debridement performed to nails 1-5 bilateral [...] Care Team (Late st Contact Info) Description 10/10/2025 1:30 PM EST Office Visit Orthopedic Surgery - [place] [address] [phone] Mao Evans DPM [address] [address] documented as of this encounter Visit Diagnoses Diagnosis Controlled type 2 diabetes with neuropathy ([facility] V24, [facility] V28)- Primary Type II or unspecified type diabetes mellitus with neurological manifestations, not stated as uncontrolled Arthritis of both feet Hammertoes of both feet Tinea pedis of both feet Dermatophytosis, nail Dermatophytosis of nail documented in this encounter Care Teams Cylinder Machine Operator Relationship Specialty Start Date End Date Nikki Naik FNP [address] [place] [phone] PCP - General Family Medicine 09/14/24 documented as of this encounter
[2025-07-14 15:09] VITALS: BP 129/78; BP 131/56; PULSE 50; PULSE 54; RESP 14; TEMP 36.8; O2SAT 100; O2SAT 97; BMI 25.6
--- NOTE | 2025-07-14 15:41 | ED_ITS ---
HPI - General Adult General Chief complaint: Altered Mental Status Stated complaint: WEAKNESS Time Seen by Provider: 07/14/25 15:31 Source: patient, family (Caregiver), EMS and desizing machine offbearer Mode of arrival: EMS Limitations: no limitations History of Present Illness ED Provider: DR. Corbin HPI narrative: 64-year-old male snf resident with PMH significant for HTN, HLD, DM, CKD, vitamin-D deficiency, CVA with left hemiplegia, anemia, hearing impairment, GERD patient was sent by snf for a wellness check. Patient normally woke at the snf using a walker, this morning patient could not walk for the staff, there is a suspicion for increased marijuana use and increased alcohol consumption lately. Patient overall is a limited historian most of the history was obtained from old record and caregiver. Patient has no complaints at the moment, no headache, no neck pain, no CP, no SOB, abdominal pain. Patient admitted to smoking marijuana and drinking alcohol for nips yesterday. Related Data Home Medications ?Medication ?Instructions ?Recorded ?Confirmed lorazepam 0.5 mg tablet (Ativan) 0.5 mg PO DAILY PRN A nxiety 07/24/20 07/06/25 glucose 5 % oral solution 15 g PO Q15M PRN hypoglycemi a 12/28/22 07/06/25 blood-glucose meter (FreeStyle 05/17/23 07/06/25 Lite Meter kit) fluoxetine 40 mg capsule (Prozac) 40 mg PO DAILY 01/2607/06/25 brexpiprazole 2 mg tablet (Rexulti) 2 mg PO DAILY 11/0507/06/25 ketoconazole 2 % topical cream appl topical 12/01/24 1 trazodone 100 mg tablet 200 mg PO BEDTIME 12/01/24 1 reagan-lanta 30mg/7.5ml PO Q6H PRN 07/06/25 Previous Rx's ?Medication ?Instructions ?Recorded miscellaneous medical supply #1 ea 07/11/21 miscellaneous medical supply See Rx Instructions misce llaneous 05/14/22 .COMPLEX #1 ea hydralazine 50 mg tablet 50 mg PO TID 90 days #270 ta bs 11/05/22 dextrose 15 gram/33 gram oral gel See Rx Instructions PO .COMPLEX 12/31/23 packet (Dex4 Glucose) #198 grams pen needle, diabetic 31 gauge x 1 ea miscellaneous TID 28 days #84 02/22/24 5/16 (Easy Touch) ea hydrocortisone 1 % topical cream 1 appl topical TID MN N skin 05/22/24 irritation #28.35 grams albuterol sulfate 90 mcg/actuation 2 puff inhalation Q 6H PRN 06/08/24 aerosol inhaler shortness of breath or wheez ing #8.5 grams acetaminophen 325 mg tablet 650 mg (2 x 325 mg) PO Q6H PRN 08/02/24 (Tylenol) temp, headache or general discomfort 30 days #120 tabs cholecalciferol (vitamin D3) 25 25 mcg PO DAILY 90 day s #90 tabs 10/23/24 mcg (1,000 unit) tablet lactulose 10 gram/15 mL oral 30 ml PO .q72 h PRN const ipation 11/13/24 solution (Enulose) #473 mL acetaminophen 325 mg tablet 325 mg PO QID PRN pain #20 tabs 12/01/24 (Tylenol) polyethylene glycol 3350 17 17 g PO BID #1,020 grams 0 01/08/25 gram/dose oral powder dulaglutide 3 mg/0.5 mL 3 mg (0.5 mL) subcut QWEEK # 2 mL 01/31/25 subcutaneous pen injector ([employer]) ascorbic acid (vitamin C) 500 mg 500 mg PO BID 3 month s #180 tabs 02/06/25 tablet lancets 26 gauge (Easy Touch #100 ea 02/06/25 Safety Lancets) multivitamin,tx-minerals 1 cap PO DAILY #90 caps 01/26 (Multi-Vitamin HP/Minerals capsule) lidocaine 4 % topical patch 1 patch topical DAILY PRN pain #15 03/14/25 (AsperFlex (lidocaine)) ea apixaban 5 mg tablet (Eliquis) 5 mg PO BID #56 tabs metoprolol succinate 25 mg 25 mg PO BEDTIME 28 days #2 8 tabs 03/23/25 tablet,extended release 24 hr sennosides 8.6 mg tablet (senna) 8.6 mg PO BID #56 tab s 03/23/25 ursodiol 300 mg capsule 300 mg PO BID #56 caps 03/23 atorvastatin 80 mg tablet 80 mg PO BEDTIME 90 days #90 tabs 04/23/25 nifedipine 30 mg tablet,extended 30 mg PO DAILY 90 day s #90 tabs 04/23/25 release 24 hr (Procardia XL) tamsulosin 0.4 mg capsule (Flomax) 0.4 mg PO BEDTIME 9 0 days #90 caps 04/23/25 aspirin 81 mg tablet,delayed 81 mg PO QAM 90 days #90 tabs 05/01/25 release insulin degludec 200 unit/mL (3 46 unit (0.23 mL) subc ut DAILY 30 05/01/25 mL) subcutaneous pen (Tresi days #6.9 mL FlexTouch U-200 insulin) empagliflozin 10 mg tablet 10 mg PO QAM #28 tabs 05/28 (Jardiance) losartan 50 mg tablet 75 mg (1.5 x 50 mg) PO BID # 84 tabs 06/07/25 blood sugar diagnostic (FreeStyle #100 ea 06/22/25 Lite Strips) Allergies Allergy/AdvReac Type Severity Reaction Status Date / Time amlodipine (From [facility]) Allergy Severe due to Verified 07/14/25 15:21 poor renal function ibuprofen Allergy Severe 2/2 renal Verified 07/14/25 15:21 function Review of Systems 2 Review of Systems: All other systems are reviewed and are negative Constitutional: Reports as per HPI and Reports no additional constitutional complaints Eyes: Reports as per HPI and Reports no additional eye complaints Reports system reviewed and no additional complaints, except as documented Cardiovascular: Reports as per HPI and Reports no additional cardiovascular complaints Respiratory: Reports as per HPI and Reports no additional respiratory complaints Gastrointestinal: Reports as per HPI and Reports no additional gastrointestinal complaints Genitourinary: Reports no additional female genitourinary complaints Musculoskeletal: Reports no additional musculoskeletal complaints Skin/Breast: Reports system reviewed and no additional complaints, except as docu Psychiatric: Reports no additional psychiatric complaints Endocrine: Reports no additional endocrine complaints Hematologic/Lymphatic: Reports no additional hematologic/lymphatic complaints Allergic/Immunologic: Reports no additional allergic/immunologic complaints Reports system reviewed and no additional complaints, except as documented and Reports Abnormal speech present [facility] Past Medical History Medical History Skin lesion Squamous cell carcinoma of skin Encephalopathy Cerebrovascular accident Hypoglycemia unawareness associated with type 2 diabetes mellitus Diabetes type 2, uncontrolled Type 2 diabetes mellitus with diabetic polyneuropathy Essential hypertension Epigastric pain Skin cancer Postoperative bleeding from incision Skin lesion Stroke Type 2 diabetes mellitus with chronic kidney disease Chronic kidney disease, stage 3 Aphagia Unsteady gait Anemia Hypertensive chronic kidney disease with stage 1 through stage 4 chronic kidney disease, or unspecified chronic kidney disease CKD (chronic kidney disease) Hearing loss Preglaucoma Vascular device, implant, or graft complication Bronchitis HTN (hypertension) Hyperlipidemia Hyperlipidemia Vitamin D deficiency Vitamin D deficiency Constipation GERD (gastroesophageal reflux disease) Diabetes Hemiplegia Surgical History History of removal of cyst (~02/09/22) Hx of cataract surgery History of surgical removal of skin lesion History of exploratory laparotomy Family History Family History Father Myocardial infarction Mother Throat cancer Diabetes Family/Other FH: mental illness Brother In good health Sister In good health Sister In good health Daughter In good health Social History Social History 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 Household Members Other:: snf Housing: House Do you presently have visiting nurse or other home services: Yes Alcohol intake: current Alcohol intake frequency: 3 or more drinks per day Patient Tobacco Use Status: Former Tobacco user Tobacco use type: Cigarette Cigarette Packs Per Day: 2 Cigarettes Per Day: 40.0 Years Smoked: 16 Smoked in Last 30 Days: No e-Cigarette/Vaping Use: Never Used Second Hand Smoke Exposure: No Use of substances other than those prescribed or required for medical reasons: Yes Substance Use Type: Marijuana Substance Use Frequency: Recent Binge Advance Directives: Yes Advance Directives on File: Yes Advance Directives Date on File: 07/04/24 Do you have a plan to hurt others: No Plan service: No Current occupational status: disabled Current occupational exposures/hazards: No Cognitive needs: Yes (walker) Hearing needs: No Vision needs: No Physical Exam ED Vital Signs: Vital Signs - 24 hr 07/14/25 15:09 07/14/25 18:24 Temperature 98.3 F Pulse Rate 50 58 Respiratory Rate 14 16 Blood Pressure 131/56 L 143/65 H Pulse Oximetry 97 98 Oxygen Delivery Method Room Air Room Air BMI result Body Mass Index 25.6 Vital signs have been reviewed and appear to be correct. Blood pressure elevated. Heart rate normal. Respiratory rate normal. Temperature normal. Oxygen saturation normal. Appearance: Alert. Oriented X3. No acute distress. Head: Normal external exam. Normocephalic. Atraumatic. No Matthews signs noted. No raccoon eyes noted Eyes: PERRLA. EOMI. Conjunctiva and sclera normal. Eyelids normal. ENT: TM's Normal. Pharynx normal. Uvula midline. Moist mucous membranes. No trismus noted. No drooling noted. No muffled voice noted. Neck: Normal inspection. Neck supple. FROM. No adenopathy. Thyroid Normal. No meningeal signs. No neck mass noted. CVS: Normal heart rate and rhythm. Heart sound normal. No murmurs noted. Pulses normal throughout. Respiratory: No respiratory distress. Painless inspiration. Breath sounds normal. No wheezes/rales/rhonchi noted. Chest nontender. No accessory muscle usage noted or decreased air movement noted. Abdomen: Soft and nontender. Bowel sounds normal in all 4 quadrants. No distention noted. No organomegaly noted. No visible injury noted. Back: No CVA tenderness. Full range of motion noted. Skin: Skin warm and dry. Normal skin color. Normal skin turgor. No rashes/lesions/lacerations noted. Extremities: No lower extremity edema. Extremities exhibit normal range of motion. Extremities nontender. Neuro: Oriented X 3. Cranial nerve exam: II-XII are grossly intact No motor deficit. No sensory deficit. Reflexes normal. Course Reevaluation(s) Reevaluation #1: Patient was sent from correction for check on the patient of using any drugs, patient is at his baseline mental status, unremarkable workup today, the patient to be discharged back to the correction. Time: 18:59 Medical Decision Making Differential Diagnosis Differential Diagnoses: The differential diagnosis associated with the presentation includes (Drug use, alcohol intoxication, electrolyte derangement, severe anemia, UTI, medical clearance.) Admission/Observation Consideration of admission/observation: Escalation of care including admission/observation considered Lab Data MDM Lab Attestation statement: I reviewed the patient's lab results. 07/14/25 16:25 07/14/25 16:25 Labs: Lab Results 07/14/25 07/14/25 Range/Units 16:25 17:44 WBC 8.9 (4.8-10.8) X10*3/uL RBC 3.62 L (4.60-5.80) X10*6/uL Hgb 10.5 L (14.0-18.0) g/dl Hct 32.8 L (42.0-52.0) % MCV 90.6 (80.0-98.0) fL MCH 29.0 (27.0-33.0) pg MCHC 32.0 (31.0-36.0) g/dl RDW 13.2 (11.0-16.0) % Plt Count 267 (160-400) X10*3/uL MPV 10.9 (9.4-12.4) fL Immature Gran % (Auto) 0.2 (0.0-0.4) % Neut % (Auto) 64.9 (45-73) % Lymph % (Auto) 24.2 (20-40) % [place] % (Auto) 7.2 (2-11) % Eos % (Auto) 3.0 (0-4) % Baso % (Auto) 0.5 (0-2) % Lymph # (Auto) 2.2 (1.2-4.9) X10*3/uL [place] # (Auto) 0.6 (0.1-1.2) X10*3/uL Eos # (Auto) 0.3 (0.0-0.4) X10*3/uL Baso # (Auto) 0.0 (0.0-0.2) X10*3/uL Abs Immat Gran (auto) 0.02 (0.00-0.03) X10*3/uL Absolute Neuts (auto) 5.8 (2.0-8.3) x10*3/uL Absolute Nucleated RBC 0.000 (0.0-0.012) X10*3/uL Nucleated RBC % (auto) 0.0 (0.0-0.2) /100WBC Sodium 146 H (135-145) mmol/L Potassium 5.3 H (3.3-5.1) mmol/L Chloride 114 H (96-108) mmol/L Carbon Dioxide 26 (22-29) mmol/L Anion Gap 11 L (12-20) BUN 37 H (9-16) mg/dL Creatinine 2.21 H (0.5-1.4) mg/dL Estim Creat Clear Calc 34.6 Estimated GFR 30 Random Glucose 105 (60-115) mg/dL Calcium 9.3 (8.4-10.2) mg/dL Urine Color Yellow Urine Appearance Clear Urine pH 6.0 (5.0-9.0) Ur Specific [place] 1.015 (1.005-1.025) Urine Protein 30 (1+) H (Neg-Trace) mg/dL Urine Glucose (UA) 500 H (Negative) mg/dL Urine Ketones Negative (Negative) mg/dL Urine Blood Negative (Negative) Urine Nitrite Negative (Negative) Ur Leukocyte Esterase Negative (Negative) Urine RBC 0-2 (0-2) /HPF Urine WBC 0-5 (0-5) /HPF Ur Squamous Epith Cells 0-2 (0-2) /HPF Urine Bacteria None Seen (None Seen) Hyaline Casts 0-2 (0-2) /LPF Urine Opiates Screen Not Detected (Not Detect) Ur Buprenorphine Scrn Not Detected (Not Detect) ng/mL Ur Oxycodone Screen Not Detected (Not Detect) ng/mL Urine Methadone Screen Not Detected (Not Detect) ng/mL Urine Fentanyl Screen Not Detected (Not Detect) Ur Barbiturates Screen Not Detected (Not Detect) Ur Phencyclidine Scrn Not Detected (Not Detect) Ur Amphetamines Screen Not Detected (Not Detect) U Benzodiazepines Scrn Not Detected (Not Detect) Urine Cocaine Screen Not Detected (Not Detect) U Marijuana (THC) Screen POSITIVE H (Not Detect) Ethyl Alcohol < 10 mg/dL Discharge Plan Discharge Clinical Impression: Cannabis use disorder Patient Disposition: Xfer [facility] Instructions: Cannabis Use Disorder (ED) Prescriptions: No Action hydralazine 50 mg tablet 50 mg PO TID 90 Days Qty: 270 2RF Protocol: Hold for SBP< HOLD for SBP < : 110 dextrose [Dex4 Glucose] 15 gram/33 gram gel in packet See Rx Instructions PO .COMPLEX Qty: 198 4RF Rx Instructions: 15 gm pRN hypoglycemia pen needle, diabetic [Easy Touch] 31 gauge x 5/16 needle 1 ea miscellaneous TID 28 Days Qty: 84 11RF acetaminophen [Tylenol] 325 mg tablet 650 mg PO Q6H PRN (Reason: temp, headache or general discomfort) 30 Days Qty: 120 3RF Rx Instructions: Take two 325mg tabs every 6 hours as needed for fever over 101, headache, or general discomfort. Contact PCP if symptoms persist greater than 24 hours. cholecalciferol (vitamin D3) 25 mcg (1,000 unit) tablet 25 mcg PO DAILY 90 Days Qty: 90 4RF lactulose [Enulose] 10 gram/15 mL solution 30 ml PO .q72 h PRN (Reason: constipation) Qty: 473 3RF Rx Instructions: Take every 3 days or every 72 hours as needed. If no effect after 24 hours from dose, contact PCP polyethylene glycol 3350 17 gram/dose powder 17 g PO BID Qty: 1020 8RF Trulicity 3 mg/0.5 mL pen injector 3 mg subcut QWEEK Qty: 2 4RF (DME) lancets [Easy Touch Safety Lancets] 26 gauge misc See Rx Instructions .ROUTE .COMPLEX Qty: 100 11RF Dose Instruction: USE 2-3 TIMES A DAY DIRECTED FOR BLOOD GLUCOSE MONITORING Rx Instructions: USE 2-3 TIMES A DAY DIRECTED FOR BLOOD GLUCOSE MONITORING ascorbic acid (vitamin C) 500 mg tablet 500 mg PO BID 90 Days Qty: 180 3RF Multi-Vitamin HP/Minerals Capsule 1 cap PO DAILY Qty: 90 1RF Rx Instructions: take for supplement daily with food Eliquis 5 mg tablet 5 mg PO BID Qty: 56 11RF Rx Instructions: Report any excessive bleeding metoprolol succinate 25 mg tablet extended release 24 hr 25 mg PO BEDTIME 28 Days Qty: 28 11RF Rx Instructions: Do not crush/chew sennosides [senna] 8.6 mg tablet 8.6 mg PO BID Qty: 56 11RF ursodiol 300 mg capsule 300 mg PO BID Qty: 56 11RF atorvastatin 80 mg tablet 80 mg PO BEDTIME 90 Days Qty: 90 1RF Rx Instructions: replaces simvastatin 40 mg qhs tamsulosin [Flomax] 0.4 mg capsule 0.4 mg PO BEDTIME 90 Days Qty: 90 1RF nifedipine [Procardia XL] 30 mg tablet extended release 24hr 30 mg PO DAILY 90 Days Qty: 90 1RF aspirin 81 mg tablet,delayed release (DR/EC) 81 mg PO QAM 90 Days Qty: 90 1RF Rx Instructions: Do not crush/chew Tresiba FlexTouch U-200 200 unit/mL (3 mL) insulin pen 46 unit subcut DAILY 30 Days Qty: 6.9 4RF Rx Instructions: Report any blood sugars <70 Jardiance 10 mg tablet 10 mg PO QAM Qty: 28 6RF losartan 50 mg tablet 75 mg PO BID Qty: 84 0RF acetaminophen [Tylenol] 325 mg tablet 325 mg PO QID PRN (Reason: pain) Qty: 20 0RF lidocaine [AsperFlex (lidocaine)] 4 % adhesive patch,medicated 1 patch topical DAILY PRN (Reason: pain) Qty: 15 0RF albuterol sulfate 90 mcg/actuation HFA aerosol inhaler 2 puff inhalation Q6H MDD 8 PRN (Reason: shortness of breath or wheezing) Qty: 8.5 0RF (DME) miscellaneous medical supply Misc See Rx Instructions .ROUTE .MEDSUPPLY Qty: 1 0RF Rx Instructions: R AFO, Daily As directed, 999 days. Disp #1 lorazepam [Ativan] 0.5 mg tablet 0.5 mg PO DAILY PRN (Reason: Anxiety) miscellaneous medical supply Misc See Rx Instructions miscellaneous .COMPLEX Qty: 1 1RF Rx Instructions: Right lateral sole wedge as directed; hydrocortisone 1 % cream 1 appl topical TID PRN (Reason: skin irritation) Qty: 28.35 0RF (DME) blood-glucose meter [FreeStyle Lite Meter] Kit See Rx Instructions .Route Rx Instructions: As directed glucose 5 % solution 15 g PO Q15M PRN (Reason: hypoglycemia) (DME) FreeStyle Lite Strips Strip See Rx Instructions .ROUTE .COMPLEX Qty: 100 11RF Dose Instruction: USE TO TEST BLOOD SUGAR FOUR TIMES A DAY Rx Instructions: USE TO TEST BLOOD SUGAR FOUR TIMES A DAY fluoxetine [Prozac] 40 mg capsule 40 mg PO DAILY Rexulti 2 mg tablet 2 mg PO DAILY trazodone 100 mg tablet 200 mg PO BEDTIME ketoconazole 2 % cream topical reagan-lanta 30mg/7.5ml PO Q6H PRN Patient Comments: Reagan-Lanta [phone] Print Language: Upper Sorbian
--- OUTSIDE RECORDS SUMMARY | 2025-07-14 15:48 | XMS_ITS | Encounter Summary ---
Author Organization [facility] Address [address] [facility] [address] [place] [address] Phone Care Team Providers Care Parking Lot Supervisor Name Role Phone Brit Smallwood [employer] SALES MANAGER Primary Care Provider [phone] Reason for Visit * Reason Comments Med Refill Encounter Details Date Type Department Care Team (Late st Contact Info) Description 12/09/2023 Refill [facility] [address] [facility] [address] [place] [phone] Antonio Carter MD [address] [facility] [address] [place] [phone] Social History Tobacco Use Types Packs/Day Years [...] on filedocumented in this encounter Care Teams Parking Lot Supervisor Relationship Specialty Start Date End Date Brit Smallwood NP [address] [place] [address] [id number] PCP - General Nurse Practitioner 02/13/21 documented as of this encounter
--- OUTSIDE RECORDS SUMMARY | 2025-07-14 15:49 | XMS_ITS | Clinical Summary ---
Author Organization 175 [facility] Address 175 [place] [address] Phone Care Team Providers Care Cargo Trimmer Name Role Phone Nikki Naik MECHANICAL MAINTENANCE TECHNICIAN Primary Care Provider [phone] Allergies No known active allergies Medications ketoconazole (NIZORAL) 2 % cream Apply topically 1 (one) time each day. Apply topical in the morning time to the bottoms of the feet bilaterally 60 g 2 Active Encounters Date Type Department Care Team Description 07/10/2025 2:00 PM EDT Office Visit Orthopedic Surgery [facility] 250 175 [facility] [address] [place] [phone] Mao Evans DPM Controlled type 2 [...] Encounters Date Type Department Care Team ([facility] st Contact Info) Description 10/10/2025 1:30 PM EST Office Visit Orthopedic Surgery - [place] 250 175 [facility] 250 [place] [phone] Mao Evans, ETHAN 175 [facility] 250 [place] [address] Health Maintenance Due Date Last Done Comments Colorectal Cancer Screening: Colonoscopy 1962 Diabetes: Annual GFR (Glomerular Filtration Rate) 1962 Diabetes: Annual Foot Exam 1972 Diabetes: Annual Retina Eye Exam 1972 Zoster Vaccines (1 of 2) 1981 Pneumococcal [...] Depression Screening 10/04/2024 Influenza Vaccine (#1) 2025 , 09/17/2022, 12/26/2019 Diabetes: Annual Urine Albumin-Creatinine Ratio (uACR) 07/10/2025 Diabetes: Blood Sugar Contro l Test (HGBA1C) 07/10/2025 DTaP,Tdap,and Td Vaccines (2 - Td or [...] patient's age to complete this topic Insurance [facility] Care Teams Cargo Trimmer Relationship Specialty Start Date End Date Nikki Naik FNP [address] [place] [address] PCP - General Family Medicine 09/14/24
--- OUTSIDE RECORDS SUMMARY | 2025-07-14 15:49 | XMS_ITS | Encounter Summary ---
Author Organization [facility] Address 100 [facility] 200 [place] [address] Phone Care Team Providers Care Economic Analyst Name Role Phone Brit Smallwood [place] Primary Care Provider [phone] Reason for Visit * Reason Comments Med Refill Encounter Details Date Type Department Care Team (Late st Contact Info) Description 12/02/2023 Refill [facility] 100 [facility] 200 [place] [phone] Antonio Carter MD 3[address] [facility] 204 [place] [phone] Social History Tobacco Use Types Packs/Day Years [...] EST With the assistance of Radha speaking Belarusian a call was placed to the patient regarding a medication refill request. The patients table tender was informed that in order to refill medications the patient needs a follow up visit. The patient states he will decide if he would like to continue at [facility] or follow his previous Tool Crib Supervisor. He will contact the office with his decision. A 30 day refillis available to the patient. documented in this encounter Plan of Treatment Not on file documented as of this encounter Visit Diagnoses Not on filedocumented in this encounter Care Teams Economic Analyst Relationship Specialty Start Date End Date Brit Smallwood NP [address] [place] [phone] PCP - General Nurse Practitioner 02/13/21 documented as of this encounter
--- OUTSIDE RECORDS SUMMARY | 2025-07-14 15:49 | XMS_ITS | Clinical Summary ---
Author Organization [facility] Address 10 [facility] [place] [address] Phone Care Team Providers Care Hydramatic Mechanic Name Role Phone Brit Smallwood NP Primary Care Provider [phone] Allergies Active Allergy Reactions Criticality Noted Date [...] [facility] [address] 200 [place] [phone] Antonio Carter MD 06/07/2025 Refill [facility] [address] [phone] Lazaro Valadez MD 05/17/2025 Refill [facility] [address] [phone] Lazaro Valadez MD 04/13/2025 Refill [facility] [address] [phone] Lazaro Valadez MD from Last 3 Months [...] this topic Insurance Medicaid Medicaid Care Teams Hydramatic Mechanic Relationship Specialty Start Date End Date Brit Smallwood NP [address] [place] [phone] PCP - General Nurse Practitioner 02/13/21
--- OUTSIDE RECORDS SUMMARY | 2025-07-14 15:49 | XMS_ITS | Encounter Summary ---
Author Organization [facility] Address [address] [address] Phone Care Team Providers Care Hospital Internship Name Role Phone Brit Smallwood FLIGHT SERVICE SPECIALIST Primary Care Provider [phone] Reason for Visit * Reason Comments Med Refill Encounter Details Date Type Department Care Team ([facility] st Contact Info) Description 11/30/2024 Refill [facility] [address] [phone] Ermias Sandoval MD [address] [address] Social History Tobacco Use Types [...] on filedocumented in this encounter Care Teams Hospital Internship Relationship Specialty Start Date End Date Brit Smallwood NP [facility] [place], [place] [phone] PCP - General Nurse Practitioner 02/13/21 documented as of this encounter
--- OUTSIDE RECORDS SUMMARY | 2025-07-14 15:49 | XMS_ITS | Encounter Summary ---
Author Organization [facility] Address [address] [address] Phone Care Team Providers Care Feather Washer Name Role Phone Brit Smallwood TAXICAB STARTER Primary Care Provider [phone] Reason for Visit * Reason Comments Med Refill Encounter Details Date Type Department Care Team ([facility] st Contact Info) Description 12/07/2024 Refill [facility] [address] [phone] Ermias Sandoval MD [address] [address] Social History Tobacco Use Types [...] on filedocumented in this encounter Care Teams Feather Washer Relationship Specialty Start Date End Date Brit Smallwood NP [facility] [place], [place] [phone] PCP - General Nurse Practitioner 02/13/21 documented as of this encounter
--- OUTSIDE RECORDS SUMMARY | 2025-07-14 15:49 | XMS_ITS | Encounter Summary ---
Author Organization [facility] Address [address] [address] Phone Care Team Providers Care Rand Butter Name Role Phone Brit Smallwood INVENTORY AUDIT CLERK Primary Care Provider [phone] Reason for Visit * Reason Comments Med Refill Encounter Details Date Type Department Care Team ([facility] st Contact Info) Description 11/01/2024 Refill [facility] [address] [phone] Ermias Sandoval MD [address] [address] Social History Tobacco Use Types [...] on filedocumented in this encounter Care Teams Rand Butter Relationship Specialty Start Date End Date Brit Smallwood NP [facility] [place], [place] [phone] PCP - General Nurse Practitioner 02/13/21 documented as of this encounter
--- OUTSIDE RECORDS SUMMARY | 2025-07-14 15:49 | XMS_ITS | Encounter Summary ---
Author Organization [facility] Address [address] [address] Phone Care Team Providers Care Cnc Lathe Machinist Name Role Phone Brit Smallwood RUG DRYING MACHINE OPERATOR Primary Care Provider [phone] Reason for Visit * Reason Comments Med Refill Encounter Details Date Type Department Care Team ([facility] st Contact Info) Description 11/07/2024 Refill [facility] [address] [phone] Ermias Sandoval MD [address] [address] Social History Tobacco Use [...] on filedocumented in this encounter Care Teams Cnc Lathe Machinist Relationship Specialty Start Date End Date Brit Smallwood NP [facility] [place], [place] [phone] PCP - General Nurse Practitioner 02/13/21 documented as of this encounter
[2025-07-14 16:29] LABS: MANUAL DIFF FLAG NO
[2025-07-14 16:33] LABS: Hematocrit 32.8 % (42.0-52.0); Hemoglobin 10.5 g/dl (14.0-18.0); Imm Gran Abs Auto 0.02 X10*3/uL (0.00-0.03); Imm Gran Pct Auto 0.2 % (0.0-0.4); Lymphocytes Absolute Auto 2.2 X10*3/uL (1.2-4.9); Mean Corpuscular HGB Conc 32.0 g/dl (31.0-36.0); Mean Corpuscular Hemoglobin 29.0 pg (27.0-33.0); Mean Corpuscular Volume 90.6 fL (80.0-98.0); NRBC Abs Auto 0.000 X10*3/uL (0.0-0.012); NRBC Pct Auto 0.0 /100WBC (0.0-0.2); Platelet Count 267 X10*3/uL (160-400); Red Blood Count 3.62 X10*6/uL (4.60-5.80); White Blood Count 8.9 X10*3/uL (4.8-10.8)
[2025-07-14 16:43] LABS: Anion Gap 11 (12-20); Blood Urea Nitrogen 37 mg/dL (9-16); Calcium 9.3 mg/dL (8.4-10.2); Carbon Dioxide 26 mmol/L (22-29); Chloride 114 mmol/L (96-108); Creatinine Clr Calc Pharmacy 34.6; Estimated Glomerular Filt Rate 30; Potassium 5.3 mmol/L (3.3-5.1); Sodium 146 mmol/L (135-145)
[2025-07-14 17:59] LABS: Appearance Urine Clear; Glucose Urine UA 500 mg/dL (Negative); PH 6.0 (5.0-9.0); Specific Gravity - Urine 1.015 (1.005-1.025); UMIC TRIGGER UACC YES
[2025-07-14 18:07] LABS: Cannabinoid Screen Urine POSITIVE (Not Detect)
[2025-07-14 18:24] VITALS: BP 143/65; PULSE 58; RESP 16; O2SAT 98
[2025-07-14 19:48] VITALS: BP 147/67; PULSE 60; RESP 15; TEMP 36.8; O2SAT 95
--- NOTE | 2025-07-14 19:49 | PC.NURSE ---
Pt given sandwich, diet manuela wero, and cheese stick upon request. snf staff arranging wheelchair van home. Awaiting arrival, pt resting comfortably in bed.
== END 2025-07-14 20:44 | disposition skilled nursing facility (03) ==
PROVIDERS: Emergency Provider Emergency Medicine
DX: R41.82 Altered mental status, unspecified (principal); I10 Essential (primary) hypertension; E11.9 Type 2 diabetes mellitus without complications; R26.2 Difficulty in walking, not elsewhere classified; F12.90 Cannabis use, unspecified, uncomplicated; Z79.899 Other long term (current) drug therapy; Z87.891 Personal history of nicotine dependence; Z86.73 Personal history of transient ischemic attack (TIA), and cerebral infarction without residual deficits; Z51.81 Encounter for therapeutic drug level monitoring
CPT/HCPCS: 36415; 80048; 80307; 81001; 85025; 99284

== ENCOUNTER 2025-08-08 20:42 | Emergency (ER) | payer OTHER, SELFPAY ==
--- NOTE | 2025-08-08 | ECG_ITS ---
Test Reason : left shoulder pain Blood Pressure : */* mmHG Vent. Rate : 58 BPM Atrial Rate : 58 BPM P-R Int : 144 ms QRS Dur : 94 ms QT Int : 448 ms P-R-T Axes : 28 -12 56 degrees QTcB Int : 439 ms Sinus bradycardia Otherwise normal ECG When compared with ECG of 13-Mar-2025 21:18, No significant change was found Referred By: Generic ED Physician Electronically Signed By: Marino Benson
--- NOTE | ~2025-08-08 | XR_ITS ---
CLINICAL HISTORY: pain 3 view left elbow Comparison: None provided Findings: No acute fractures or dislocations. No significant arthritic change or erosions. No joint effusion. No radiopaque foreign body. IMPRESSION: 1. No acute findings. This document has been electronically signed by: Diego Wells MD on 08/09/2025 01:11:32
[2025-08-08 21:10] VITALS: BP 131/63; BP 148/71; PULSE 56; PULSE 60; RESP 18; TEMP 36.7; O2SAT 100; O2SAT 98; BMI 30.8
--- NOTE | 2025-08-08 21:13 | PC.NURSE ---
pt reports L shoulder pain radiating don trap on L side. 7/10 pain, 3/10 pain in head. blood pressure mildly elevated. 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
[2025-08-08 21:18] LABS: MANUAL DIFF FLAG NO
[2025-08-08 21:20] LABS: Hematocrit 33.3 % (42.0-52.0); Hemoglobin 10.8 g/dl (14.0-18.0); Imm Gran Abs Auto 0.04 X10*3/uL (0.00-0.03); Imm Gran Pct Auto 0.4 % (0.0-0.4); Lymphocytes Absolute Auto 2.9 X10*3/uL (1.2-4.9); Mean Corpuscular HGB Conc 32.4 g/dl (31.0-36.0); Mean Corpuscular Hemoglobin 29.1 pg (27.0-33.0); Mean Corpuscular Volume 89.8 fL (80.0-98.0); NRBC Abs Auto 0.000 X10*3/uL (0.0-0.012); NRBC Pct Auto 0.0 /100WBC (0.0-0.2); Platelet Count 211 X10*3/uL (160-400); Red Blood Count 3.71 X10*6/uL (4.60-5.80); White Blood Count 9.8 X10*3/uL (4.8-10.8)
[2025-08-08 21:38] LABS: Alanine Aminotransferase 11 U/L (0-40); Albumin Level 4.2 g/dL (3.5-5.0); Alkaline Phosphatase 66 U/L (39-117); Anion Gap 11 (12-20); Aspartate Amino Transferase 17 U/L (5-37); Blood Urea Nitrogen 35 mg/dL (9-16); Calcium 9.5 mg/dL (8.4-10.2); Carbon Dioxide 27 mmol/L (22-29); Chloride 109 mmol/L (96-108); Creatinine Clr Calc Pharmacy 39.3; Estimated Glomerular Filt Rate 35; Potassium 4.7 mmol/L (3.3-5.1); Sodium 142 mmol/L (135-145); Total Protein 7.0 g/dL (6.5-8.0)
[2025-08-08 21:45] LABS: Troponin-I High Sensitivity 4.0 ng/L (<3.5-35.0)
--- OUTSIDE RECORDS SUMMARY | 2025-08-08 21:47 | XMS_ITS | Encounter Summary ---
Author Organization [facility] Address [address] [address] Phone Care Team Providers Care Finance Vice President Name Role Phone Brit Smallwood MACHINE OPERATOR Primary Care Provider [phone] Reason for Visit * Reason Comments Med Refill Encounter Details Date Type Department Care Team ([facility] st Contact Info) Description 11/30/2024 Refill [facility] [address] [phone] Ermias Sandoval MD [address] [address] Social History Tobacco Use Types [...] on filedocumented in this encounter Care Teams Finance Vice President Relationship Specialty Start Date End Date Brit Smallwood NP [facility] [place], [place] [phone] PCP - General Nurse Practitioner 02/13/21 documented as of this encounter
--- OUTSIDE RECORDS SUMMARY | 2025-08-08 21:47 | XMS_ITS | Clinical Summary ---
Author Organization 175 [facility] Address 175 [place] [address] Phone Care Team Providers Care Pulley Maintainer Name Role Phone Nikki Naik ANVIL SEATING PRESS OPERATOR Primary Care Provider [phone] Allergies No known active allergies Medications ketoconazole (NIZORAL) 2 % cream Apply topically 1 (one) time each day. Apply topical in the morning time to the bottoms of the feet bilaterally 60 g 2 Active Encounters Date Type Department Care Team Description 07/10/2025 2:00 PM EDT Office Visit Orthopedic Surgery [facility] 250 175 [facility] [address] [place] [phone] Mao Evans DPM Controlled type 2 [...] Upcoming Encounters Date Type Department Care Team ([facility] st Contact Info) Description 10/10/2025 1:30 PM EST Office Visit Orthopedic Surgery - [place] 250 175 [facility] 250 [place] [phone] Mao Evans, ETHAN [address] [facility] 250 [place] [address] Health Maintenance Due Date Last Done Comments Colorectal Cancer Screening: Colonoscopy 1962 Diabetes: Annual GFR (Glomerular Filtration Rate) 1962 Diabetes: Annual Foot Exam 1972 Diabetes: Annual Retina Eye Exam 1972 Zoster Vaccines (1 of 2) 1981 RSV Immunization Adult Patients (1 - Risk 50-74 years 1-dose series) 2012 Pneumococcal Vaccine: 50+ Years (2 of 2 - PCV) 12/10/2020 12/11/2019 COVID-19 Vaccine (3 - Pfizer risk series) [...] patient's age to complete this topic Insurance [facility] [place] [address] Care Teams Pulley Maintainer Relationship Specialty Start Date End Date Nikki Naik FNP 140 [place] [address] PCP - General Family Medicine 09/14/24
--- OUTSIDE RECORDS SUMMARY | 2025-08-08 21:47 | XMS_ITS | Encounter Summary ---
Author Organization [facility] Address 100 [facility] 200 [place] [address] Phone Care Team Providers Care Handyman Name Role Phone Brit Smallwood [place] Primary Care Provider [phone] Reason for Visit * Reason Comments Med Refill Encounter Details Date Type Department Care Team (Late st Contact Info) Description 12/02/2023 Refill [facility] 100 [facility] 200 [place] [phone] Antonio Carter MD 1822 [facility] 204 [place] [phone] Social History Tobacco Use Types Packs/Day Years [...] EST With the assistance of Radha speaking Faroese a call was placed to the patient regarding a medication refill request. The patients car rental service attendant was informed that in order to refill medications the patient needs a follow up visit. 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 He will contact the office with his decision. A 30 day refillis available to the patient. documented in this encounter Plan of Treatment Not on file documented as of this encounter Visit Diagnoses Not on filedocumented in this encounter Care Teams Handyman Relationship Specialty Start Date End Date Brit Smallwood NP [address] [place] [phone] PCP - General Nurse Practitioner 02/13/21 documented as of this encounter
--- OUTSIDE RECORDS SUMMARY | 2025-08-08 21:47 | XMS_ITS | Encounter Summary ---
Author Organization [facility] Address 100 [facility] 200 [place] [address] Phone Care Team Providers Care Marketing Professional Name Role Phone Brit Smallwood PRACTICAL MINISTRIES PROFESSOR Primary Care Provider [phone]- [phone] Reason for Visit * Reason Comments Med Refill Encounter Details Date Type Department Care Team (Late st Contact Info) Description 08/01/2025 Refill [facility] 100 [facility] 200 [place] [phone] Antonio Carter MD [address] [facility] 204 [place] [phone] Social History Tobacco Use Types Packs/Day Years [...] on filedocumented in this encounter Care Teams Marketing Professional Relationship Specialty Start Date End Date Brit Smallwood NP [address] [place] [phone] PCP - General Nurse Practitioner 02/13/21 documented as of this encounter
--- OUTSIDE RECORDS SUMMARY | 2025-08-08 21:47 | XMS_ITS | Encounter Summary ---
Author Organization [facility] Address [address] [address] Phone Care Team Providers Care Managed Care Provider Name Role Phone Brit Smallwood DRAFTER LANDSCAPE Primary Care Provider [phone]- [phone] Reason for Visit * Reason Comments Med Refill Encounter Details Date Type Department Care Team ([facility] st Contact Info) Description 12/07/2024 Refill [facility] [address] [phone] Ermias Sandoval MD [address] [address] Social History Tobacco Use Types [...] on filedocumented in this encounter Care Teams Managed Care Provider Relationship Specialty Start Date End Date Brit Smallwood NP [facility] [place], [place] [phone] PCP - General Nurse Practitioner 02/13/21 documented as of this encounter
--- OUTSIDE RECORDS SUMMARY | 2025-08-08 21:47 | XMS_ITS | Clinical Summary ---
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 Anemia of chronic renal failure 11/20/2020 Essential hypertension 11/20/2020 Hypertensive renal disease 11/20/2020 Resolved Problems Problem Noted Date Diagnosed Date Resolved Date Chronic kidney disease stage 3 11/20/2020 02/13/2021 Encounters Date Type Department Care Team Description 08/01/2025 Refill [facility] [address] [address] [place] [address] Antonio Carter MD 07/03/2025 Refill [facility] [address] [place] [place] [phone] Antonio Carter MD 06/07/2025 Refill [facility] [address] [address] Lazaro Valadez MD 05/17/2025 Refill [facility] [address] [address] Lazaro Valadez MD from Last 3 Months [...] patient's age to complete this topic Insurance [facility] Medicaid [facility] Medicaid Care Teams Instrument Assembly Supervisor Relationship Specialty Start Date End Date Brit Smallwood NP [address] [place] [phone] PCP - General Nurse Practitioner 02/13/21
--- OUTSIDE RECORDS SUMMARY | 2025-08-08 21:47 | XMS_ITS | Encounter Summary ---
Author Organization [facility] Address [address] [address] Phone Care Team Providers Care Director Fundraising Name Role Phone Brit Smallwood LAND TITLE EXAMINER Primary Care Provider +1- [phone] Reason for Visit * Reason Comments Med Refill Encounter Details Date Type Department Care Team ([facility] st Contact Info) Description 11/01/2024 Refill [facility] [address] [phone] Ermias Sandoval MD [address] [address] Social History Tobacco Use Types [...] on filedocumented in this encounter Care Teams Director Fundraising Relationship Specialty Start Date End Date Brit Smallwood NP [facility] [place], [place] [phone] PCP - General Nurse Practitioner 02/13/21 documented as of this encounter
--- OUTSIDE RECORDS SUMMARY | 2025-08-08 21:47 | XMS_ITS | Encounter Summary ---
Author Organization [facility] Address 100 [facility] 200 [place] [address] Phone Care Team Providers Care Maintenance Operator Name Role Phone Brit Smallwood ENERGY DERIVATIVES TRADER Primary Care Provider [phone]- [phone] Reason for Visit * Reason Comments Med Refill Encounter Details Date Type Department Care Team (Late st Contact Info) Description 12/09/2023 Refill [facility] 100 [facility] 200 [place] [phone] Antonio Carter MD 3550 [facility] 204 [place] [phone] Social History Tobacco Use Types Packs/Day Years [...] filedocumented in this encounter Care Teams Maintenance Operator Relationship Specialty Start Date End Date Brit Smallwood NP [address] [place] [phone] PCP - General Nurse Practitioner 02/13/21 documented as of this encounter
--- OUTSIDE RECORDS SUMMARY | 2025-08-08 21:47 | XMS_ITS | Encounter Summary ---
Author Organization [facility] Address [address] [address] Phone Care Team Providers Care Respooler Name Role Phone Brit Smallwood STERILE PRODUCTS PROCESSOR Primary Care Provider +1- [phone] Reason for Visit * Reason Comments Med Refill Encounter Details Date Type Department Care Team ([facility] st Contact Info) Description 11/07/2024 Refill [facility] [address] [phone] Ermias Sandoval MD [address] [address] Social History Tobacco Use Types [...] on filedocumented in this encounter Care Teams Respooler Relationship Specialty Start Date End Date Brit Smallwood NP [facility] [place], [place] [phone] PCP - General Nurse Practitioner 02/13/21 documented as of this encounter
[2025-08-08] MEDS: Lidocaine 4 % Patch ADH..PATCH 1 PATCH TRANSDERMA (23:03)
--- NOTE | 2025-08-09 | ED.EXTPRO ---
HPI - Extremity Problem General Chief complaint: Extremity Injury, Upper Stated complaint: L ARM AND SHOULDER PAIN X 2 DAYS Time Seen by Provider: 08/08/25 23:33 Source: patient, RN notes reviewed, old records reviewed, american sign language interpreter and other (skilled nursing staff) Mode of arrival: EMS Limitations: language barrier and other (very poor historian) History of Present Illness ED Provider: Luis HPI Narrative: 64-year-old male past medical history significant for chronic kidney disease, previous CVA with left-sided deficits, GERD, hypertension, hyperlipidemia, DVT on Eliquis, diabetes anemia presents for evaluation of left arm pain. The patient tells me that he has had left shoulder and left arm pain down to his elbow for 1 week. You also has left upper and lower back pain. He denies any falls or heavy lifting. He has been taking Tylenol without any improvement in his symptoms The patient is a very poor historian even with using the freelance interpreter/translator He reports being compliant with his medications Related Data Home Medications ?Medication ?Instructions ?Recorded ?Confirmed lorazepam 0.5 mg tablet (Ativan) 0.5 mg PO DAILY PRN Anxiety 07/24/20 07/06/25 glucose 5 % oral solution 15 g PO Q15M PRN hypoglycemia 12/28/22 07/06/25 blood-glucose meter (ChefStyle 05/17/23 07/06/25 Lite Meter kit) fluoxetine 40 mg capsule (Prozac) 40 mg PO DAILY 01/27/24 07/06/25 brexpiprazole 2 mg tablet (Rexulti) 2 mg PO DAILY 12/01/24 07/06/25 ketoconazole 2 % topical cream appl topical 12/01/24 07/06/25 trazodone 100 mg tablet 200 mg PO BEDTIME 12/01/24 07/06/25 anita-lanta 30mg/7.5ml PO Q6H PRN 07/06/25 Previous Rx's ?Medication ?Instructions ?Recorded miscellaneous medical supply #1 ea 07/11/21 miscellaneous medical supply See Rx Instructions miscellaneous 05/14/22 .COMPLEX #1 ea hydralazine 50 mg tablet 50 mg PO TID 90 days #270 tabs 11/05/22 dextrose 15 gram/33 gram oral gel See Rx Instructions PO .COMPLEX 12/31/23 packet (Dex4 Glucose) #198 grams pen needle, diabetic 31 gauge x 1 ea miscellaneous TID 28 days #84 02/22/24 5/16 (Easy Touch) ea hydrocortisone 1 % topical cream 1 appl topical TID PRN skin 05/22/24 irritation #28.35 grams albuterol sulfate 90 mcg/actuation 2 puff inhalation Q6H PRN 06/08/24 aerosol inhaler shortness of breath or wheezing #8.5 grams acetaminophen 325 mg tablet 650 mg (2 x 325 mg) PO Q6H PRN 08/02/24 (Tylenol) temp, headache or general discomfort 30 days #120 tabs cholecalciferol (vitamin D3) 25 25 mcg PO DAILY 90 days #90 tabs 10/23/24 mcg (1,000 unit) tablet lactulose 10 gram/15 mL oral 30 ml PO .q72 h PRN constipation 11/13/24 solution (Enulose) #473 mL acetaminophen 325 mg tablet 325 mg PO QID PRN pain #20 tabs 12/01/24 (Tylenol) polyethylene glycol 3350 17 17 g PO BID #1,020 grams 01/08/25 gram/dose oral powder ascorbic acid (vitamin C) 500 mg 500 mg PO BID 3 months #180 tabs 02/06/25 tablet lancets 26 gauge (Easy Touch #100 ea 02/06/25 Safety Lancets) multivitamin,tx-minerals 1 cap PO DAILY #90 caps 03/07/25 (Multi-Vitamin HP/Minerals capsule) lidocaine 4 % topical patch 1 patch topical DAILY PRN pain #15 03/14/25 (AsperFlex (lidocaine)) ea apixaban 5 mg tablet (Eliquis) 5 mg PO BID #56 tabs 03/23/25 metoprolol succinate 25 mg 25 mg PO BEDTIME 28 days #28 tabs 03/23/25 tablet,extended release 24 hr sennosides 8.6 mg tablet (senna) 8.6 mg PO BID #56 tabs 03/23/25 ursodiol 300 mg capsule 300 mg PO BID #56 caps 03/23/25 atorvastatin 80 mg tablet 80 mg PO BEDTIME 90 days #90 tabs 04/23/25 nifedipine 30 mg tablet,extended 30 mg PO DAILY 90 days #90 tabs 04/23/25 release 24 hr (Procardia XL) tamsulosin 0.4 mg capsule (Flomax) 0.4 mg PO BEDTIME 90 days #90 caps 04/23/25 aspirin 81 mg tablet,delayed 81 mg PO QAM 90 days #90 tabs 05/01/25 release insulin degludec 200 unit/mL (3 46 unit (0.23 mL) subcut DAILY 30 05/01/25 mL) subcutaneous pen (Tresi #6.9 mL FlexTouch U-200 insulin) empagliflozin 10 mg tablet 10 mg PO QAM #28 tabs 05/28/25 (Jardiance) losartan 50 mg tablet 75 mg (1.5 x 50 mg) PO BID #84 tabs 06/07/25 blood sugar diagnostic (FreeStyle #100 ea 06/22/25 Lite Strips) dulaglutide 3 mg/0.5 mL 3 mg (0.5 mL) subcut QWEEK #2 mL 07/24/25 subcutaneous pen injector (Trulicity) lidocaine 5 % topical patch 1 patch topical DAILY PRN pain, 08/09/25 mild #15 ea tramadol 50 mg tablet 50 mg PO Q8H PRN pain, moderate #6 08/09/25 tabs Allergies Allergy/AdvReac Type Severity Reaction Status Date / Time amlodipine (From [facility]) Allergy Severe due to Verified 08/08/25 21:13 poor renal function ibuprofen Allergy Severe 2/2 renal Verified 08/08/25 21:13 function Review of Systems Constitutional: Constitutional: Denies body ache(s), Denies chills, Denies fever(s), Denies frequent falls and Denies headache(s) Eyes: Eyes: Denies blurry vision and Denies irritation ENT: Denies vertigo, Denies dizziness and Denies headache(s) Cardiovascular: Cardiovascular: Denies chest pain and Denies dyspnea on exertion Respiratory: Respiratory: Denies cough and Denies dyspnea on exertion Gastrointestinal: Gastrointestinal: Denies abdominal pain, Denies nausea and Denies vomiting Musculoskeletal: Musculoskeletal: Reports back pain, Reports arthralgias, Denies joint swelling and Reports limited range of motion Integumentary/Breasts: Skin/Breast: Denies rash Neurologic: Denies vertigo, Denies dizziness, Denies frequent falls and Denies headache(s) Psychiatric: Psychiatric: Denies anxiety PMFSH Past Medical History Medical History Skin lesion Squamous cell carcinoma of skin Encephalopathy Cerebrovascular accident Hypoglycemia unawareness associated with type 2 diabetes mellitus Diabetes type 2, uncontrolled Type 2 diabetes mellitus with diabetic polyneuropathy Essential hypertension Epigastric pain Skin cancer Postoperative bleeding from incision Skin lesion Stroke Type 2 diabetes mellitus with chronic kidney disease Chronic kidney disease, stage 3 Aphagia Unsteady gait Anemia Hypertensive chronic kidney disease with stage 1 through stage 4 chronic kidney disease, or unspecified chronic kidney disease CKD (chronic kidney disease) Hearing loss Preglaucoma Vascular device, implant, or graft complication Bronchitis HTN (hypertension) Hyperlipidemia Hyperlipidemia Vitamin D deficiency Vitamin D deficiency Constipation GERD (gastroesophageal reflux disease) Diabetes Hemiplegia Surgical History History of removal of cyst (~02/09/22) Hx of cataract surgery History of surgical removal of skin lesion History of exploratory laparotomy Family History Family History Father Myocardial infarction Mother Throat cancer Diabetes Family/Other FH: mental illness Brother In good health Sister In good health Sister In good health Daughter In good health Social History Social History 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 Household Members Other:: skilled nursing Housing: House Do you presently have visiting nurse or other home services: Yes Alcohol intake: current Alcohol intake frequency: 3 or more drinks per day Patient Tobacco Use Status: Former Tobacco user Tobacco use type: Cigarette Cigarette Packs Per Day: 2 Cigarettes Per Day: 40.0 Years Smoked: 16 Smoked in Last 30 Days: No e-Cigarette/Vaping Use: Never Used Second Hand Smoke Exposure: No Use of substances other than those prescribed or required for medical reasons: No Substance Use Type: Marijuana Advance Directives: Yes Advance Directives on File: Yes Advance Directives Date on File: 07/04/24 service: No Current occupational status: disabled Current occupational exposures/hazards: No Cognitive needs: Yes (walker) Hearing needs: No Vision needs: No Physical Exam Vital Signs: Vital Signs: Last Vital Signs Temp 98.1 F 08/08/25 21:10 Pulse 60 08/08/25 21:10 Resp 18 08/08/25 21:10 BP 148/71 H 08/08/25 21:10 Pulse Ox 100 08/08/25 21:10 O2 Del Method Room Air 08/08/25 21:10 BMI result Body Mass Index 30.8 Const: General: comfortable, no acute distress, alert and awake Nutritional Appearance: well nourished HEENT: Head: Yes normocephalic and Yes atraumatic Eyes: Eyelids: Yes eyelids normal Conjunctivae: conjunctivae normal Sclerae: sclerae normal Corneas: corneas normal Pupils: Equal, round and reactive pupils present EOM: EOMs intact bilaterally Neck: Neck: Yes full ROM Resp: Effort & Inspection: normal respiratory effort, able to speak in complete sentences and not labored Cardio: Rate: regular rate Rhythm: regular rhythm GI: Inspection: No distended Palpation (GI): Soft to palpation, not firm, nontender, no guarding and not rigid Skin: General skin exam: elasticity normal Neuro: Cranial nerves: Yes Equal, round and reactive pupils present and Yes Bilaterally intact EOM present Extrem: Other: Patient has some contractures to the left hand. He is able to move the left shoulder and elbow but has discomfort in the left elbow with active range of motion. He has tenderness on palpation to the left elbow with the insertion of the biceps tendon. You also some left lateral epicondyle tenderness. No palpable deformity. There was no tenderness to palpation of the left shoulder or trapezius muscle group. No crepitus on palpation of the chest Course Reevaluation(s) Reevaluation #1: Patient's workup largely unremarkable, x-ray does not show any traumatic injuries. The patient has not had any relief with Tylenol, he is unable take NSAIDs due to his renal disease. Plan to give a short course of tramadol in addition to lidocaine patches Time: 01:33 Medications Administered Discontinued Medications Generic Name Dose Route Start Last Admin Trade Name Masterq PRN Reason Stop Dose Admin Acetaminophen 975 mg 08/08/25 22:49 08/08/25 22:57 Acetaminophen 325 Mg Tablet PO 08/08/25 22:50 975 mg ONCE ONE Administration Lidocaine 1 patch 08/08/25 22:49 08/08/25 23:03 Lidocaine 4 % Patch Adh..Patch TRANSDERMA 08/08/25 22:50 1 patch ONCE ONE Administration Protocol Oxycodone HCl 5 mg 08/08/25 23:47 08/09/25 00:02 Oxycodone Hcl Immed Release 5 Mg Tablet PO 08/08/25 23:48 5 mg ONCE ONE Administration Medical Decision Making Medical Decision Making [facility] Narrative: 64-year-old male with past medical history as above presents for evaluation of left arm and back pain. He denies any injury or fall. There were no obvious deformities on exam. He still has slow range of motion to left upper extremity at the shoulder and elbow but has pain in the left elbow while doing so. No overlying skin changes or evidence of infectious process. Plan for x-ray of the left elbow and the patient is most tender. He has no vertebral tenderness, no step-offs or deformities. We will treat him with a dose of oxycodone as the patient has significant renal disease and can not take NSAIDs he is also on Eliquis. He reports Tylenol has not helped. He was also given a lidocaine patch for his back. The patient's symptoms is not consistent with ACS, in his abdominal pain is very reproducible. He did have a EKG that was nonischemic and a troponin within normal limits. Differential Diagnosis Differential Diagnoses: The differential diagnosis associated with the presentation includes Left shoulder pain Contusion Epicondylitis Muscle strain Radiculopathy ACS less likely Lab Data [facility] Lab Attestation statement: I reviewed the patient's lab results. No leukocytosis. The patient has a mild anemia and carries a diagnosis of mild chronic anemia. His hemoglobin hematocrit are consistent with his recent baseline going back to a month ago. Normal platelet count. No significant electrolyte abnormalities warranting medical clearance he has chronic kidney disease in his BUN of 35 with creatinine of 1.94 are consistent with this diagnosis. Has a known diabetic with a elevated glucose of 137 08/08/25 21:13 08/08/25 21:13 Labs: Lab Results 08/08/25 Range/Units 21:13 WBC 9.8 (4.8-10.8) X10*3/uL RBC 3.71 L (4.60-5.80) X10*6/uL Hgb 10.8 L (14.0-18.0) g/dl Hct 33.3 L (42.0-52.0) % MCV 89.8 (80.0-98.0) fL MCH 29.1 (27.0-33.0) pg MCHC 32.4 (31.0-36.0) g/dl RDW 13.5 (11.0-16.0) % Plt Count 211 (160-400) X10*3/uL MPV 10.5 (9.4-12.4) fL Immature Gran % (Auto) 0.4 (0.0-0.4) % Neut % (Auto) 59.1 (45-73) % Lymph % (Auto) 29.6 (20-40) % [place] % (Auto) 7.9 (2-11) % Eos % (Auto) 2.6 (0-4) % Baso % (Auto) 0.4 (0-2) % Lymph # (Auto) 2.9 (1.2-4.9) X10*3/uL [place] # (Auto) 0.8 (0.1-1.2) X10*3/uL Eos # (Auto) 0.3 (0.0-0.4) X10*3/uL Baso # (Auto) 0.0 (0.0-0.2) X10*3/uL Abs Immat Gran (auto) 0.04 H (0.00-0.03) X10*3/uL Absolute Neuts (auto) 5.8 (2.0-8.3) x10*3/uL Absolute Nucleated RBC 0.000 (0.0-0.012) X10*3/uL Nucleated RBC % (auto) 0.0 (0.0-0.2) /100WBC Sodium 142 (135-145) mmol/L Potassium 4.7 (3.3-5.1) mmol/L Chloride 109 H (96-108) mmol/L Carbon Dioxide 27 (22-29) mmol/L Anion Gap 11 L (12-20) BUN 35 H (9-16) mg/dL Creatinine 1.94 H (0.5-1.4) mg/dL Estim Creat Clear Calc 39.3 Estimated GFR 35 Random Glucose 137 H (60-115) mg/dL Calcium 9.5 (8.4-10.2) mg/dL Total Bilirubin 0.2 (0.0-1.0) mg/dL AST 17 (5-37) U/L ALT 11 (0-40) U/L Alkaline Phosphatase 66 (39-117) U/L Troponin I High Sens 4.0 (<3.5-35.0) ng/L Total Protein 7.0 (6.5-8.0) g/dL Albumin 4.2 (3.5-5.0) g/dL Independent Interpretation I performed an independent interpretation of an: EKG (Sinus bradycardia rate of [address] change) Radiology Impression Discussion of test interpretation with radiology: I have reviewed the radiologist's reading. Radiologist Impression: Findings: No acute fractures or dislocations. No significant arthritic change or erosions. No joint effusion. No radiopaque foreign body. IMPRESSION: 1. No acute findings. This document has been electronically signed by: Diego Wells MD on 08/09/2025 01:11:32 Discharge Plan Discharge Clinical Impression: Arthralgia of elbow, left, Low back pain Patient Disposition: Home, Self-Care Instructions: Acute Low Back Pain (ED), Arthralgia (ED) Additional Instructions: Your workup in the ER today was reassuring. This includes your EKG, labs, EKG. You may continue using Tylenol as needed for pain pain Take tramadol for more severe, breakthrough pain. This may make you drowsy, do not drink alcohol or drive after taking it. You may use lidocaine patches to your lower back as needed Follow up with the primary doctor, return for new or worsening symptom Prescriptions: New tramadol 50 mg tablet 50 mg PO Q8H PRN (Reason: pain, moderate) Qty: 6 0RF lidocaine 5 % adhesive patch,medicated 1 patch topical DAILY PRN (Reason: pain, mild) Qty: 15 0RF Rx Instructions: leave on most painful area for up to 12 hrs No Action hydralazine 50 mg tablet 50 mg PO TID 90 Days Qty: 270 2RF Protocol: Hold for SBP< HOLD for SBP < : 110 dextrose [Dex4 Glucose] 15 gram/33 gram gel in packet See Rx Instructions PO .COMPLEX Qty: 198 4RF Rx Instructions: 15 gm pRN hypoglycemia pen needle, diabetic [Easy Touch] 31 gauge x 5/16 needle 1 ea miscellaneous TID 28 Days Qty: 84 11RF acetaminophen [Tylenol] 325 mg tablet 650 mg PO Q6H PRN (Reason: temp, headache or general discomfort) 30 Days Qty: 120 3RF Rx Instructions: Take two 325mg tabs every 6 hours as needed for fever over 101, headache, or general discomfort. Contact PCP if symptoms persist greater than 24 hours. cholecalciferol (vitamin D3) 25 mcg (1,000 unit) tablet 25 mcg PO DAILY 90 Days Qty: 90 4RF lactulose [Enulose] 10 gram/15 mL solution 30 ml PO .q72 h PRN (Reason: constipation) Qty: 473 3RF Rx Instructions: Take every 3 days or every 72 hours as needed. If no effect after 24 hours from dose, contact PCP polyethylene glycol 3350 17 gram/dose powder 17 g PO BID Qty: 1020 8RF (DME) lancets [Easy Touch Safety Lancets] 26 gauge misc See Rx Instructions .ROUTE .COMPLEX Qty: 100 11RF Dose Instruction: USE 2-3 TIMES A DAY DIRECTED FOR BLOOD GLUCOSE MONITORING Rx Instructions: USE 2-3 TIMES A DAY DIRECTED FOR BLOOD GLUCOSE MONITORING ascorbic acid (vitamin C) 500 mg tablet 500 mg PO BID 90 Days Qty: 180 3RF Multi-Vitamin HP/Minerals Capsule 1 cap PO DAILY Qty: 90 1RF Rx Instructions: take for supplement daily with food Eliquis 5 mg tablet 5 mg PO BID Qty: 56 11RF Rx Instructions: Report any excessive bleeding metoprolol succinate 25 mg tablet extended release 24 hr 25 mg PO BEDTIME 28 Days Qty: 28 11RF Rx Instructions: Do not crush/chew sennosides [senna] 8.6 mg tablet 8.6 mg PO BID Qty: 56 11RF ursodiol 300 mg capsule 300 mg PO BID Qty: 56 11RF atorvastatin 80 mg tablet 80 mg PO BEDTIME 90 Days Qty: 90 1RF Rx Instructions: replaces simvastatin 40 mg qhs tamsulosin [Flomax] 0.4 mg capsule 0.4 mg PO BEDTIME 90 Days Qty: 90 1RF nifedipine [Procardia XL] 30 mg tablet extended release 24hr 30 mg PO DAILY 90 Days Qty: 90 1RF aspirin 81 mg tablet,delayed release (DR/EC) 81 mg PO QAM 90 Days Qty: 90 1RF Rx Instructions: Do not crush/chew Tresiba FlexTouch U-200 200 unit/mL (3 mL) insulin pen 46 unit subcut DAILY 30 Days Qty: 6.9 4RF Rx Instructions: Report any blood sugars <70 Jardiance 10 mg tablet 10 mg PO QAM Qty: 28 6RF losartan 50 mg tablet 75 mg PO BID Qty: 84 0RF Trulicity 3 mg/0.5 mL pen injector 3 mg subcut QWEEK Qty: 2 4RF acetaminophen [Tylenol] 325 mg tablet 325 mg PO QID PRN (Reason: pain) Qty: 20 0RF lidocaine [AsperFlex (lidocaine)] 4 % adhesive patch,medicated 1 patch topical DAILY PRN (Reason: pain) Qty: 15 0RF albuterol sulfate 90 mcg/actuation HFA aerosol inhaler 2 puff inhalation Q6H MDD 8 PRN (Reason: shortness of breath or wheezing) Qty: 8.5 0RF (DME) miscellaneous medical supply Misc See Rx Instructions .ROUTE .MEDSUPPLY Qty: 1 0RF Rx Instructions: R AFO, Daily As directed, 999 days. Disp #1 lorazepam [Ativan] 0.5 mg tablet 0.5 mg PO DAILY PRN (Reason: Anxiety) miscellaneous medical supply Misc See Rx Instructions miscellaneous .COMPLEX Qty: 1 1RF Rx Instructions: Right lateral sole wedge as directed; hydrocortisone 1 % cream 1 appl topical TID PRN (Reason: skin irritation) Qty: 28.35 0RF (DME) blood-glucose meter [FreeStyle Lite Meter] Kit See Rx Instructions .Route Rx Instructions: As directed glucose 5 % solution 15 g PO Q15M PRN (Reason: hypoglycemia) (DME) FreeStyle Lite Strips Strip See Rx Instructions .ROUTE .COMPLEX Qty: 100 11RF Dose Instruction: USE TO TEST BLOOD SUGAR FOUR TIMES A DAY Rx Instructions: USE TO TEST BLOOD SUGAR FOUR TIMES A DAY fluoxetine [Prozac] 40 mg capsule 40 mg PO DAILY Rexulti 2 mg tablet 2 mg PO DAILY trazodone 100 mg tablet 200 mg PO BEDTIME ketoconazole 2 % cream topical anita-lanta 30mg/7.5ml PO Q6H PRN Patient Comments: Anita-Lanta [phone] Print Language: Setswana
[2025-08-09] MEDS: oxyCODONE HCl Immed Release 5 MG TABLET PO (00:02)
--- NOTE | 2025-08-09 00:04 | PC.NURSE ---
pt medicated per DEC, radiology at bedside, transporting pt to have elbow xray done.
[2025-08-09 01:51] VITALS: BP 157/79; PULSE 77; RESP 18; TEMP 36.6; O2SAT 96
--- NOTE | 2025-08-09 01:51 | PC.NURSE ---
pt taken to car in wheelchair.
== END 2025-08-09 01:52 | disposition home or self-care (01) ==
PROVIDERS: Emergency Provider Emergency Medicine
DX: M25.522 Pain in left elbow (principal); M54.50 Low back pain, unspecified; R00.1 Bradycardia, unspecified; I12.9 Hypertensive chronic kidney disease with stage 1 through stage 4 chronic kidney disease, or unspecified chronic kidney disease; E11.22 Type 2 diabetes mellitus with diabetic chronic kidney disease; N18.9 Chronic kidney disease, unspecified; K21.9 Gastro-esophageal reflux disease without esophagitis; E78.5 Hyperlipidemia, unspecified; Z86.718 Personal history of other venous thrombosis and embolism; Z79.01 Long term (current) use of anticoagulants; Z87.891 Personal history of nicotine dependence
CPT/HCPCS: 36415; 73080; 80053; 84484; 85025; 93005; 99283; 99284

== ENCOUNTER → 2025-08-08 21:02 | Outpatient (BNV) | payer OTHER, SELFPAY | PROVIDERS: Emergency Provider Emergency Medicine; Visit Provider Internal Medicine Cardiovascular Disease | DX: R00.1 Bradycardia, unspecified (principal) | CPT/HCPCS: 93010 ==

== ENCOUNTER → 2025-08-09 | Outpatient (BNV) | payer OTHER, SELFPAY | PROVIDERS: Emergency Provider Emergency Medicine; Visit Provider Radiology Diagnostic Radiology | DX: M25.522 Pain in left elbow (principal) | CPT/HCPCS: 73080 ==

== ENCOUNTER 2025-08-10 18:22 | Emergency (ER) | payer OTHER, SELFPAY ==
--- NOTE | ~2025-08-10 | XR_ITS ---
CLINICAL HISTORY: cp 1 view chest x-ray. Comparison: 10/12/2024 Findings: No consolidation or effusion. Cardiac and mediastinal contours appear grossly stable. Bones unremarkable. Impression: 1. No acute pulmonary disease. This document has been electronically signed by: West Garay MD on 08/10/2025 19:58:07
--- NOTE | ~2025-08-10 | CT_ITS ---
CLINICAL HISTORY: fall CT chest without contrast Comparison: 10/21/2023 05:06 PM EST Findings: Lung taylor are clear without acute infiltrates. No significant mediastinal adenopathy. No significant free pleural fluid. Degenerative change in thoracic spine. Old sternal and rib fracture deformities. No significant focal bony abnormalities. Cholelithiasis partially visualized. Bilateral gynecomastia. Impression: No acute processes This document has been electronically signed by: Glenroy Naqvi MD on 08/10/2025 21:24:03
--- NOTE | ~2025-08-10 | XR_ITS ---
CLINICAL HISTORY: pain 3 views left shoulder Comparison: 03/13/2025 Findings: No fractures or dislocations. No significant arthritic change. No radiopaque foreign body. Normal visualized left chest. Impression: 1. Unremarkable left shoulder This document has been electronically signed by: West Garay MD on 08/10/2025 19:57:32
--- NOTE | ~2025-08-10 | CT_ITS ---
CLINICAL HISTORY: syncope CT head without contrast Comparison: None provided Findings: Patient was scanned multiple times due to motion artifact. No acute intracranial fluid collection or hematoma. Moderate chronic white matter disease with volume loss. No acute process in sinuses or mastoids. No acute bony abnormality. Impression: No acute intracranial process This document has been electronically signed by: Glenroy Naqvi MD on 08/10/2025 21:26:48
--- NOTE | ~2025-08-10 | CT_ITS ---
CLINICAL HISTORY: fall CT cervical spine without contrast Comparison: 07/04/2024 Findings: No acute fracture or dislocation. Severe lower degenerative change. Slight C5-6 retrolisthesis, unchanged. Alignment is otherwise unremarkable. No radiopaque foreign bodies. Impression: No acute processes This document has been electronically signed by: Glenroy Naqvi MD on 08/10/2025 21:20:51
[2025-08-10 18:35] VITALS: BP 125/72; BP 136/60; PULSE 62; PULSE 80; RESP 16; TEMP 37; O2SAT 95; O2SAT 99; BMI 27.0
--- NOTE | 2025-08-10 18:37 | ECG_ITS ---
Test Reason : SYNCOPE Blood Pressure : */* mmHG Vent. Rate : 66 BPM Atrial Rate : 66 BPM P-R Int : 144 ms QRS Dur : 88 ms QT Int : 408 ms P-R-T Axes : 50 4 55 degrees QTcB Int : 427 ms Normal sinus rhythm Normal ECG When compared with ECG of 08-Aug-2025 21:02, No significant change was found Referred By: Hui Garcia Electronically Signed By: Marino Benson
--- OUTSIDE RECORDS SUMMARY | 2025-08-10 19:21 | XMS_ITS | Encounter Summary ---
Author Organization [facility] Address [address] [address] Phone Care Team Providers Care Telegraphic Service Dispatcher Name Role Phone Brit Smallwood MANAGER MEDICARE Primary Care Provider [phone] Reason for Visit * Reason Comments Med Refill Encounter Details Date Type Department Care Team ([facility] st Contact Info) Description 11/07/2024 Refill [facility] [address] [phone] Ermias Sandoval MD [address] [address] Social History Tobacco Use Types [...] on filedocumented in this encounter Care Teams Telegraphic Service Dispatcher Relationship Specialty Start Date End Date Brit Smallwood NP [facility] [place], [place] [id number] PCP - General Nurse Practitioner 02/13/21 documented as of this encounter
--- OUTSIDE RECORDS SUMMARY | 2025-08-10 19:21 | XMS_ITS | Encounter Summary ---
Author Organization [facility] Address [address] [facility] [address] [place] [address] Phone Care Team Providers Care Site Lead Name Role Phone Brit Smallwood TALENT ACQUISITION PROGRAM MANAGER Primary Care Provider [phone] Reason for Visit * Reason Comments Med Refill Encounter Details Date Type Department Care Team (Late st Contact Info) Description 08/09/2025 Refill [facility] [address] [facility] [address] [place] [phone] Antonio Carter MD [address] [facility] [address] [place] [phone] Social History Tobacco Use Types Packs/Day Years [...] on filedocumented in this encounter Care Teams Site Lead Relationship Specialty Start Date End Date Brit Smallwood NP [address] [place] [phone] PCP - General Nurse Practitioner 02/13/21 documented as of this encounter
--- OUTSIDE RECORDS SUMMARY | 2025-08-10 19:21 | XMS_ITS | Encounter Summary ---
Author Organization [facility] Address [address] [address] Phone Care Team Providers Care Catshovel Driver Name Role Phone Brit Smallwood RADIOPHARMACIST Primary Care Provider [phone]- [phone] Reason for Visit * Reason Comments Med Refill Encounter Details Date Type Department Care Team ([facility] st Contact Info) Description 11/30/2024 Refill [facility] [address] [phone] Ermias Sandoval MD [address] [phone] Social History Tobacco Use Types [...] on filedocumented in this encounter Care Teams Catshovel Driver Relationship Specialty Start Date End Date Brit Smallwood NP [facility] [place], [place] [phone] PCP - General Nurse Practitioner 02/13/21 documented as of this encounter
--- OUTSIDE RECORDS SUMMARY | 2025-08-10 19:21 | XMS_ITS | Encounter Summary ---
Author Organization [facility] Address [address] [address] Phone Care Team Providers Care Semiconductor Manufacturing Technician Name Role Phone Brit Smallwood LEAD JAVA SOFTWARE ENGINEER Primary Care Provider [phone]- [phone] Reason for Visit * Reason Comments Med Refill Encounter Details Date Type Department Care Team ([facility] st Contact Info) Description 12/07/2024 Refill [facility] [address] [phone] Ermias Sandoval MD [address] [phone] Social History Tobacco Use Types [...] on filedocumented in this encounter Care Teams Semiconductor Manufacturing Technician Relationship Specialty Start Date End Date Brit Smallwood NP [facility] [place], [place] [phone] PCP - General Nurse Practitioner 02/13/21 documented as of this encounter
--- OUTSIDE RECORDS SUMMARY | 2025-08-10 19:21 | XMS_ITS | Encounter Summary ---
Author Organization [facility] Address [address] [facility] [address] [place] [address] Phone Care Team Providers Care Ware Carrier Name Role Phone Brit Smallwood DELI COOK Primary Care Provider [phone]- [phone] Reason for Visit * Reason Comments Med Refill Encounter Details Date Type Department Care Team (Late st Contact Info) Description 08/01/2025 Refill [facility] [address] [facility] [address] [place] [phone] Antonio Carter MD [address] [facility] [address] [place] [phone] Social History Tobacco Use Types Packs/Day Years [...] on filedocumented in this encounter Care Teams Ware Carrier Relationship Specialty Start Date End Date Brit Smallwood NP [address] [place] [phone] PCP - General Nurse Practitioner 02/13/21 documented as of this encounter
--- OUTSIDE RECORDS SUMMARY | 2025-08-10 19:21 | XMS_ITS | Encounter Summary ---
Author Organization [facility] Address [address] [facility] 200 [place] [address] Phone Care Team Providers Care Obgyn Specialist Name Role Phone Brit Smallwood SERVICES DELIVERY DRIVER Primary Care Provider [phone] Reason for Visit * Reason Comments Med Refill Encounter Details Date Type Department Care Team (Late st Contact Info) Description 12/09/2023 Refill [facility] [address] [facility] 200 [place] [phone] Antonio Carter MD [address] [facility] 204 [place] [phone] Social History Tobacco Use Types Packs/Day Years [...] on filedocumented in this encounter Care Teams Obgyn Specialist Relationship Specialty Start Date End Date Brit Smallwood NP [address] [place] [address] [phone] PCP - General Nurse Practitioner 02/13/21 documented as of this encounter
--- OUTSIDE RECORDS SUMMARY | 2025-08-10 19:21 | XMS_ITS | Encounter Summary ---
Author Organization [facility] Address [address] [facility] 200 [place] [address] Phone Care Team Providers Care Head Cleaning Porter Name Role Phone Brit Smallwood [place] Primary Care Provider [phone] Reason for Visit * Reason Comments Med Refill Encounter Details Date Type Department Care Team (Late st Contact Info) Description 12/02/2023 Refill [facility] [address] [facility] 200 [place] [phone] Antonio Carter MD [address] [facility] [address] [place] [phone] Social History Tobacco Use Types Packs/Day Years [...] EST With the assistance of Radha speaking Uzbek a call was placed to the patient regarding a medication refill request. 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 He will contact the office with his decision. A 30 day refillis available to the patient. documented in this encounter Plan of Treatment Not on file documented as of this encounter Visit Diagnoses Not on filedocumented in this encounter Care Teams Head Cleaning Porter Relationship Specialty Start Date End Date Brit Smallwood NP [address] [place] [id number] PCP - General Nurse Practitioner 02/13/21 documented as of this encounter
--- OUTSIDE RECORDS SUMMARY | 2025-08-10 19:22 | XMS_ITS | Clinical Summary ---
Author Organization [facility] Address [address] [facility] [place] [address] Phone Care Team Providers Care Inspector Metal Can Name Role Phone Brit Smallwood NP Primary Care Provider [phone] Allergies Active Allergy Reactions Criticality Noted Date [...] Encounters Date Type Department Care Team Description 08/09/2025 Refill [facility] [address] [place] [address] [place] [address] Antonio Carter MD 08/01/2025 Refill [facility] [address] [place] [address] [place] [phone] Antonio Carter MD 07/03/2025 Refill [facility] [address] [place] [address] [place] [address] Antonio Carter MD 06/07/2025 Refill [facility] [address] [facility] 204 [place] [address] Lazaro Valadez MD 05/17/2025 Refill [facility] [address] [facility] [address] [place] [address] Lazaro Valadez MD from Last 3 Months [...] this topic Insurance Medicaid Medicaid Care Teams Inspector Metal Can Relationship Specialty Start Date End Date Brit Smallwood NP [address] [place] [address] [phone] PCP - General Nurse Practitioner 02/13/21
--- OUTSIDE RECORDS SUMMARY | 2025-08-10 19:22 | XMS_ITS | Clinical Summary ---
Author Organization [address] [facility] Address 175 [place] [address] Phone Care Team Providers Care Timing Adjuster Name Role Phone Nikki Naik PHOTOENGRAVER Primary Care Provider [phone] Allergies No known active allergies Medications ketoconazole (NIZORAL) 2 % cream Apply topically 1 (one) time each day. Apply topical in the morning time to the bottoms of the feet bilaterally 60 g 2 Active Encounters Date Type Department Care Team Description 07/10/2025 2:00 PM EDT Office Visit Orthopedic Surgery [facility] [address] [facility] [address] [place] [phone] Mao Evans DPM Controlled type 2 [...] Upcoming Encounters Date Type Department Care Team ([facility] st Contact Info) Description 10/10/2025 1:30 PM EST Office Visit Orthopedic Surgery - [place] 250 [address] [facility] 250 [place] [phone] Mao Evans, ETHAN 175 [facility] 250 [place] [address] Health Maintenance Due Date Last Done Comments [...] patient's age to complete this topic Insurance [facility] PLAN Care Teams Timing Adjuster Relationship Specialty Start Date End Date Nikki Naik FNP [address] [place] [address] PCP - General Family Medicine 09/14/24
--- OUTSIDE RECORDS SUMMARY | 2025-08-10 19:22 | XMS_ITS | Encounter Summary ---
Author Organization [facility] Address [address] [address] Phone Care Team Providers Care Software Engineer Advisor Name Role Phone Brit Smallwood BOIL OFF MACHINE OPERATOR CLOTH Primary Care Provider [phone] Reason for Visit * Reason Comments Med Refill Encounter Details Date Type Department Care Team ([facility] st Contact Info) Description 11/01/2024 Refill [facility] [address] [phone] Ermias Sandoval MD [address] [phone] Social History Tobacco Use Types [...] on filedocumented in this encounter Care Teams Software Engineer Advisor Relationship Specialty Start Date End Date Brit Smallwood NP [facility], [place] [phone] PCP - General Nurse Practitioner 02/13/21 documented as of this encounter
[2025-08-10 19:26] VITALS: BP 141/69; PULSE 60; RESP 18; O2SAT 99
[2025-08-10 19:31] VITALS: RESP 22
--- NOTE | 2025-08-10 19:35 | PC.NURSE ---
this rn assumed care of pt, pt resting in stretcher, no acute distress noted. pt reports 6/10 l shoulder pain, pt medicated per mar, iv fluids administering
[2025-08-10 19:47] LABS: Appearance Urine Clear; Glucose Urine UA 250 mg/dL (Negative); PH 6.0 (5.0-9.0); Specific Gravity - Urine 1.015 (1.005-1.025); UMIC TRIGGER UACC YES
--- NOTE | 2025-08-10 19:53 | ED.SYNCOPE ---
HPI - Syncope General Chief Complaint: Syncope Stated Complaint: R ARM PAIN SYNCOPAL EPISODE Time Seen by Provider: 08/10/25 18:30 History of Present Illness HPI narrative: Patient is a 64-year-old male with a history of DVT currently on Eliquis lives in a retirement history of diabetes history of CVA with left-sided weakness. Has been having left shoulder pain that is chronic. Was seen by patient's primary physician and was prescribed tramadol 3 days prior. Took some tramadol tonight. Patient continued to have the shoulder pain then had a syncopal episode. Irons lightheaded then blanked out. No fever no chills no coughing or congestion. No leg swelling. Good compliance of medication. Patient from home. Patient's pain goes to the shoulder. Goes to the back part of the chest. There is no bowel urinary issues. There is no abdominal pain nausea vomiting. Related Data Home Medications ?Medication ?Instructions ?Recorded ?Confirmed lorazepam 0.5 mg tablet (Ativan) 0.5 mg PO DAILY PRN Anxiety 07/24/20 08/10/25 glucose 5 % oral solution 15 g PO Q15M PRN hypoglycemia 12/28/22 08/10/25 blood-glucose meter (FreeStyle 05/17/23 07/06/25 Lite Meter kit) fluoxetine 40 mg capsule (Prozac) 40 mg PO DAILY 01/27/24 08/10/25 brexpiprazole 2 mg tablet (Rexulti) 2 mg PO BEDTIME 12/01/24 08/10/25 trazodone 100 mg tablet 200 mg PO BEDTIME 12/01/24 08/10/25 anita-lanta 30mg/7.5ml 7.5 ml PO Q6H PRN Indigestion 07/06/25 08/10/25 aspirin 81 mg tablet,delayed 81 mg PO DAILY 08/10/25 08/10/25 release dextromethorphan-guaifenesin 30 1 tab PO Q12H PRN respiratory virus 08/10/25 08/10/25 mg-600 mg tablet extended debbuuc73 hr (Mucinex DM) dulaglutide 3 mg/0.5 mL 3 mg subcut FR 08/10/25 08/10/25 subcutaneous pen injector (Trulicity) empagliflozin 10 mg tablet 10 mg PO DAILY 08/10/25 08/10/25 (Jardiance) insulin degludec 200 unit/mL (3 48 unit subcut DAILY 08/10/25 08/10/25 mL) subcutaneous pen (Tresiba FlexTouch U-200 insulin) Previous Rx's ?Medication ?Instructions ?Recorded miscellaneous medical supply #1 ea 07/11/21 hydralazine 50 mg tablet 50 mg PO TID 90 days #270 tabs 11/05/22 hydrocortisone 1 % topical cream 1 appl topical TID PRN skin 05/22/24 irritation #28.35 grams albuterol sulfate 90 mcg/actuation 2 puff inhalation Q6H PRN 06/08/24 aerosol inhaler shortness of breath or wheezing #8.5 grams acetaminophen 325 mg tablet 650 mg (2 x 325 mg) PO Q6H PRN 08/02/24 (Tylenol) temp, headache or general discomfort 30 days #120 tabs cholecalciferol (vitamin D3) 25 25 mcg PO DAILY 90 days #90 tabs 10/23/24 mcg (1,000 unit) tablet polyethylene glycol 3350 17 17 g PO BID #1,020 grams 01/08/25 gram/dose oral powder ascorbic acid (vitamin C) 500 mg 500 mg PO BID 3 months #180 tabs 02/06/25 tablet lancets 26 gauge (Easy Touch #100 ea 02/06/25 Safety Lancets) multivitamin,tx-minerals 1 cap PO DAILY #90 caps 03/07/25 (Multi-Vitamin HP/Minerals capsule) lidocaine 4 % topical patch 1 patch topical DAILY PRN pain #15 03/14/25 (AsperFlex (lidocaine)) ea apixaban 5 mg tablet (Eliquis) 5 mg PO BID #56 tabs 03/23/25 metoprolol succinate 25 mg 25 mg PO BEDTIME 28 days #28 tabs 03/23/25 tablet,extended release 24 hr sennosides 8.6 mg tablet (senna) 8.6 mg PO BID #56 tabs 03/23/25 ursodiol 300 mg capsule 300 mg PO BID #56 caps 03/23/25 atorvastatin 80 mg tablet 80 mg PO BEDTIME 90 days #90 tabs 04/23/25 nifedipine 30 mg tablet,extended 30 mg PO DAILY 90 days #90 tabs 04/23/25 release 24 hr (Procardia XL) tamsulosin 0.4 mg capsule (Flomax) 0.4 mg PO BEDTIME 90 days #90 caps 04/23/25 losartan 50 mg tablet 75 mg (1.5 x 50 mg) PO BID #84 tabs 06/07/25 blood sugar diagnostic (FreeStyle #100 ea 06/22/25 Lite Strips) lidocaine 5 % topical patch 1 patch topical DAILY PRN pain, 08/09/25 mild #15 ea tramadol 50 mg tablet 50 mg PO Q8H PRN pain, moderate #6 08/09/25 tabs Allergies Allergy/AdvReac Type Severity Reaction Status Date / Time amlodipine (From [facility]) Allergy Severe due to Verified 08/10/25 18:42 poor renal function ibuprofen Allergy Severe 2/2 renal Verified 08/10/25 18:42 function Review of Systems Review of Systems: Positive shoulder pain Yes all other systems are reviewed and are negative [facility] Past Medical History Attestation statement: The following information was validated with the patient. Medical History Skin lesion Squamous cell carcinoma of skin Encephalopathy Cerebrovascular accident Hypoglycemia unawareness associated with type 2 diabetes mellitus Diabetes type 2, uncontrolled Type 2 diabetes mellitus with diabetic polyneuropathy Essential hypertension Epigastric pain Skin cancer Postoperative bleeding from incision Skin lesion Stroke Type 2 diabetes mellitus with chronic kidney disease Chronic kidney disease, stage 3 Aphagia Unsteady gait Anemia Hypertensive chronic kidney disease with stage 1 through stage 4 chronic kidney disease, or unspecified chronic kidney disease CKD (chronic kidney disease) Hearing loss Preglaucoma Vascular device, implant, or graft complication Bronchitis HTN (hypertension) Hyperlipidemia Hyperlipidemia Vitamin D deficiency Vitamin D deficiency Constipation GERD (gastroesophageal reflux disease) Diabetes Hemiplegia Surgical History History of removal of cyst (~02/09/22) Hx of cataract surgery History of surgical removal of skin lesion History of exploratory laparotomy Family History Family History Father Myocardial infarction Mother Throat cancer Diabetes Family/Other FH: mental illness Brother In good health Sister In good health Sister In good health Daughter In good health Social History Social History 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 Household Members Other:: retirement Housing: House Do you presently have visiting nurse or other home services: Yes Alcohol intake: current Alcohol intake frequency: does not drink Patient Tobacco Use Status: Former Tobacco user Tobacco use type: Cigarette Cigarette Packs Per Day: 2 Cigarettes Per Day: 40.0 Years Smoked: 16 Smoked in Last 30 Days: Yes e-Cigarette/Vaping Use: Never Used Second Hand Smoke Exposure: No Use of substances other than those prescribed or required for medical reasons: Yes Substance Use Type: Marijuana Advance Directives: Yes Advance Directives on File: Yes Advance Directives Date on File: 07/04/24 service: No Current occupational status: disabled Current occupational exposures/hazards: No Cognitive needs: Yes (walker) Hearing needs: No Vision needs: No Physical Exam Exam: Exam: Appearance: Alert. Oriented X3. No acute distress. Eyes: Pupils equal, round and reactive to light. ENT: Pharynx normal. Neck: Normal inspection. Neck supple. No lymph nodes noted. No crepitus CVS: Normal heart rate and rhythm. Pulses normal. Normal S1 and S2 Respiratory: No respiratory distress. Breath sounds normal. No Wheezing. No rales Abdomen: Soft and nontender. No rigidity. No distention. good BS x4 Skin: Skin warm and dry. Normal skin color. Normal skin turgor. Extremities: No lower extremity edema. Neurovascular intact to all extremities. No Lacerations. No Rash Neuro: Oriented X 3. Mild dysarthria noted. Patient has weakness to the left upper extremity. There is good sensation over the axillary, median, radial, ulnar nerve distribution. Movement of the elbow is limited movement of the wrist is limited shoulder limited. Skin is intact. Vital Signs: Vital Signs: Last Vital Signs Temp 98.6 F 08/10/25 18:35 Pulse 60 08/10/25 19:26 Resp 22 H 08/10/25 19:31 BP 141/69 H 08/10/25 19:26 Pulse Ox 99 08/10/25 19:26 O2 Del Method Room Air 08/10/25 19:26 BMI result Body Mass Index 27.0 Course Reevaluation(s) Reevaluation #1: Cyndyius: The patient was signed out to me at change of shift by the previous emergency room physician pending the results of troponin levels. The patient is a 64-year-old male from a retirement who apparently had a syncopal episode and was also complaining of worsening chronic left shoulder pain. The patient had a fairly extensive workup in the emergency department. His EKG was normal. The patient is on apixaban. The patient is not exhibiting any obvious signs of a pulmonary embolism today. He is not tachycardic. He is not hypoxic. This 2 negative troponins. He also had significant radiology evaluation with a negative head CT, negative cervical spine CT, and a negative CT of the chest without contrast. Also a negative chest x-ray and a negative left shoulder x-ray. At the time that I saw the patient he looked quite comfortable. He was eating food. My suspicion for a dangerous process is low and I think the patient may be discharged to returned to his retirement. Time: 22:12 Medications Administered Discontinued Medications Generic Name Dose Route Start Last Admin Trade Name Freq PRN Reason Stop Dose Admin Hydromorphone HCl 0.5 mg 08/10/25 19:08 08/10/25 19:31 Hydromorphone Hcl 0.5 Mg/0.5 Ml Syringe IVPUSH 08/10/25 19:09 0.5 mg ONCE ONE Administration Protocol Sodium Chloride 500 mls @ 999 mls/hr 08/10/25 19:15 08/10/25 21:20 Ns IV 08/10/25 19:45 Infused .Q31M CHELSIE Infusion Medical Decision Making Medical Decision Making [facility] Narrative: Less likely to have a PE in the setting of patient being on Eliquis. INR elevated suggestive of patient compliance. Patient did had a syncopal episode. Question if he hit his head. Will get a CT scan of the head C-spine and chest. Patient's shoulder x-ray and chest x-ray by my interpretation are grossly negative. No rib fracture no shoulder fracture no dislocation noted. Patient's urine showed no evidence of infection. My interpretation of patient's EKG heart rate is in the 60s TN QRS QTC within normal limits is no acute ST segment elevation. When compared to a previous EKG it is grossly unchanged. Patient's troponin is currently pending. My interpretation patient's CT head was grossly negative. I reviewed radiology's reading of the CT head and C-spine which were grossly negative. Radiology's interpretation CT chest was negative for pneumonia pneumothorax rib fracture Differential Diagnosis Differential Diagnoses: The differential diagnosis associated with the presentation includes Intracranial bleed, syncope, PE much less likely. Injury to the neck injury to the chest Admission/Observation Consideration of admission/observation: Escalation of care including admission/observation considered Lab Data MDM Lab Attestation statement: I reviewed the patient's lab results. 08/10/25 19:54 08/10/25 19:54 Labs: Lab Results 08/10/25 08/10/25 08/10/25 Range/Units 19:40 19:54 21:13 WBC 8.7 (4.8-10.8) X10*3/uL RBC 3.66 L (4.60-5.80) X10*6/uL Hgb 10.8 L (14.0-18.0) g/dl Hct 32.5 L (42.0-52.0) % MCV 88.8 (80.0-98.0) fL MCH 29.5 (27.0-33.0) pg MCHC 33.2 (31.0-36.0) g/dl RDW 13.5 (11.0-16.0) % Plt Count 217 (160-400) X10*3/uL MPV 10.8 (9.4-12.4) fL Immature Gran % (Auto) 0.1 (0.0-0.4) % Neut % (Auto) 54.1 (45-73) % Lymph % (Auto) 34.4 (20-40) % [place] % (Auto) 8.4 (2-11) % Eos % (Auto) 2.3 (0-4) % Baso % (Auto) 0.7 (0-2) % Lymph # (Auto) 3.0 (1.2-4.9) X10*3/uL [place] # (Auto) 0.7 (0.1-1.2) X10*3/uL Eos # (Auto) 0.2 (0.0-0.4) X10*3/uL Baso # (Auto) 0.1 (0.0-0.2) X10*3/uL Abs Immat Gran (auto) 0.01 (0.00-0.03) X10*3/uL Absolute Neuts (auto) 4.7 (2.0-8.3) x10*3/uL Absolute Nucleated RBC 0.000 (0.0-0.012) X10*3/uL Nucleated RBC % (auto) 0.0 (0.0-0.2) /100WBC PT 14.7 H (11.2-13.5) SEC INR 1.2 H (0.9-1.1) Sodium 142 (135-145) mmol/L Potassium 4.3 (3.3-5.1) mmol/L Chloride 111 H (96-108) mmol/L Carbon Dioxide 22 (22-29) mmol/L Anion Gap 13 (12-20) BUN 36 H (9-16) mg/dL Creatinine 1.75 H (0.5-1.4) mg/dL Estim Creat Clear Calc 38.0 Estimated GFR 40 POC Glucose (60-115) mg/dL Random Glucose 48 L* (60-115) mg/dL Calcium 8.7 D (8.4-10.2) mg/dL Total Bilirubin 0.2 (0.0-1.0) mg/dL Direct Bilirubin < 0.2 (0.0-0.5) mg/dL AST 21 (5-37) U/L ALT 12 (0-40) U/L Alkaline Phosphatase 71 (39-117) U/L Troponin I High Sens 3.7 3.6 (<3.5-35.0) ng/L Total Protein 6.9 (6.5-8.0) g/dL Albumin 4.1 (3.5-5.0) g/dL Urine Color Yellow Urine Appearance Clear Urine pH 6.0 (5.0-9.0) Ur Specific [place] 1.015 (1.005-1.025) Urine Protein 30 (1+) H (Neg-Trace) mg/dL Urine Glucose (UA) 250 H (Negative) mg/dL Urine Ketones Negative (Negative) mg/dL Urine Blood Negative (Negative) Urine Nitrite Negative (Negative) Ur Leukocyte Esterase Negative (Negative) Urine RBC 0-2 (0-2) /HPF Urine WBC 0-5 (0-5) /HPF Ur Squamous Epith Cells 0-2 (0-2) /HPF Urine Bacteria None Seen (None Seen) Hyaline Casts 0-2 (0-2) /LPF 08/10/25 Range/Units 21:52 WBC (4.8-10.8) X10*3/uL RBC (4.60-5.80) X10*6/uL Hgb (14.0-18.0) g/dl Hct (42.0-52.0) % MCV (80.0-98.0) fL MCH (27.0-33.0) pg MCHC (31.0-36.0) g/dl RDW (11.0-16.0) % Plt Count (160-400) X10*3/uL MPV (9.4-12.4) fL Immature Gran % (Auto) (0.0-0.4) % Neut % (Auto) (45-73) % Lymph % (Auto) (20-40) % [place] % (Auto) (2-11) % Eos % (Auto) (0-4) % Baso % (Auto) (0-2) % Lymph # (Auto) (1.2-4.9) X10*3/uL [place] # (Auto) (0.1-1.2) X10*3/uL Eos # (Auto) (0.0-0.4) X10*3/uL Baso # (Auto) (0.0-0.2) X10*3/uL Abs Immat Gran (auto) (0.00-0.03) X10*3/uL Absolute Neuts (auto) (2.0-8.3) x10*3/uL Absolute Nucleated RBC (0.0-0.012) X10*3/uL Nucleated RBC % (auto) (0.0-0.2) /100WBC PT (11.2-13.5) SEC INR (0.9-1.1) Sodium (135-145) mmol/L Potassium (3.3-5.1) mmol/L Chloride (96-108) mmol/L Carbon Dioxide (22-29) mmol/L Anion Gap (12-20) BUN (9-16) mg/dL Creatinine (0.5-1.4) mg/dL Estim Creat Clear Calc Estimated GFR POC Glucose 57 L* (60-115) mg/dL Random Glucose (60-115) mg/dL Calcium (8.4-10.2) mg/dL Total Bilirubin (0.0-1.0) mg/dL Direct Bilirubin (0.0-0.5) mg/dL AST (5-37) U/L ALT (0-40) U/L Alkaline Phosphatase (39-117) U/L Troponin I High Sens (<3.5-35.0) ng/L Total Protein (6.5-8.0) g/dL Albumin (3.5-5.0) g/dL Urine Color Urine Appearance Urine pH (5.0-9.0) Ur Specific [place] (1.005-1.025) Urine Protein (Neg-Trace) mg/dL Urine Glucose (UA) (Negative) mg/dL Urine Ketones (Negative) mg/dL Urine Blood (Negative) Urine Nitrite (Negative) Ur Leukocyte Esterase (Negative) Urine RBC (0-2) /HPF Urine WBC (0-5) /HPF Ur Squamous Epith Cells (0-2) /HPF Urine Bacteria (None Seen) Hyaline Casts (0-2) /LPF Independent Interpretation I performed an independent interpretation of an: EKG (My interpretation patient's EKG as above) and CT Scan (CT head is negative for bleed) Radiology Impression Discussion of test interpretation with radiology: I have reviewed the radiologist's reading. Independent Historian Clinical information obtained from an independent historian. History obtained from or confirmed by: Other (jail staff) External Record Review External record reviewed: Inpatient record and Office record Chronic Conditions Patient?s care impacted by: Diabetes and Hypertension Previous history of DVT currently on Eliquis Social Determinants Patient?s care significantly limited by Social Determinants of Health including: Problems related to primary support group Discharge Plan Discharge Clinical Impression: Syncope, vasovagal, Acute shoulder pain Patient Disposition: Xfer Other Transfer Details: Return to retirement Additional Instructions: The testing in the emergency room today has been reassuring. There was no sign of heart attack or other acutely dangerous process. Please continue all regular medical care as currently provided. Please follow up with his regular doctor to discuss this episode further. Return to the emergency room if significantly worse. Prescriptions: No Action hydralazine 50 mg tablet 50 mg PO TID 90 Days Qty: 270 2RF Protocol: Hold for SBP< HOLD for SBP < : 110 acetaminophen [Tylenol] 325 mg tablet 650 mg PO Q6H PRN (Reason: temp, headache or general discomfort) 30 Days Qty: 120 3RF Rx Instructions: Take two 325mg tabs every 6 hours as needed for fever over 101, headache, or general discomfort. Contact PCP if symptoms persist greater than 24 hours. cholecalciferol (vitamin D3) 25 mcg (1,000 unit) tablet 25 mcg PO DAILY 90 Days Qty: 90 4RF polyethylene glycol 3350 17 gram/dose powder 17 g PO BID Qty: 1020 8RF (DME) lancets [Easy Touch Safety Lancets] 26 gauge misc See Rx Instructions .ROUTE .COMPLEX Qty: 100 11RF Dose Instruction: USE 2-3 TIMES A DAY DIRECTED FOR BLOOD GLUCOSE MONITORING Rx Instructions: USE 2-3 TIMES A DAY DIRECTED FOR BLOOD GLUCOSE MONITORING ascorbic acid (vitamin C) 500 mg tablet 500 mg PO BID 90 Days Qty: 180 3RF Multi-Vitamin HP/Minerals Capsule 1 cap PO DAILY Qty: 90 1RF Rx Instructions: take for supplement daily with food Eliquis 5 mg tablet 5 mg PO BID Qty: 56 11RF Rx Instructions: Report any excessive bleeding metoprolol succinate 25 mg tablet extended release 24 hr 25 mg PO BEDTIME 28 Days Qty: 28 11RF Rx Instructions: Do not crush/chew sennosides [senna] 8.6 mg tablet 8.6 mg PO BID Qty: 56 11RF ursodiol 300 mg capsule 300 mg PO BID Qty: 56 11RF atorvastatin 80 mg tablet 80 mg PO BEDTIME 90 Days Qty: 90 1RF Rx Instructions: replaces simvastatin 40 mg qhs tamsulosin [Flomax] 0.4 mg capsule 0.4 mg PO BEDTIME 90 Days Qty: 90 1RF nifedipine [Procardia XL] 30 mg tablet extended release 24hr 30 mg PO DAILY 90 Days Qty: 90 1RF losartan 50 mg tablet 75 mg PO BID Qty: 84 0RF lidocaine [AsperFlex (lidocaine)] 4 % adhesive patch,medicated 1 patch topical DAILY PRN (Reason: pain) Qty: 15 0RF Mucinex DM 30-600 mg Tablet Extended Release 12 Hr 1 tab PO Q12H PRN (Reason: respiratory virus) aspirin 81 mg tablet,delayed release (DR/EC) 81 mg PO DAILY Rx Instructions: Do not crush/chew insulin degludec [Tresiba FlexTouch U-200] 200 unit/mL (3 mL) insulin pen 48 unit subcut DAILY Rx Instructions: Report any blood sugars <70 Jardiance 10 mg tablet 10 mg PO DAILY Trulicity 3 mg/0.5 mL pen injector 3 mg subcut FR albuterol sulfate 90 mcg/actuation HFA aerosol inhaler 2 puff inhalation Q6H MDD 8 PRN (Reason: shortness of breath or wheezing) Qty: 8.5 0RF tramadol 50 mg tablet 50 mg PO Q8H PRN (Reason: pain, moderate) Qty: 6 0RF lidocaine 5 % adhesive patch,medicated 1 patch topical DAILY PRN (Reason: pain, mild) Qty: 15 0RF Rx Instructions: leave on most painful area for up to 12 hrs (DME) miscellaneous medical supply Misc See Rx Instructions .ROUTE .MEDSUPPLY Qty: 1 0RF Rx Instructions: R AFO, Daily As directed, 999 days. Disp #1 lorazepam [Ativan] 0.5 mg tablet 0.5 mg PO DAILY PRN (Reason: Anxiety) hydrocortisone 1 % cream 1 appl topical TID PRN (Reason: skin irritation) Qty: 28.35 0RF (DME) blood-glucose meter [FreeStyle Lite Meter] Kit See Rx Instructions .Route Rx Instructions: As directed glucose 5 % solution 15 g PO Q15M PRN (Reason: hypoglycemia) (DME) FreeStyle Lite Strips Strip See Rx Instructions .ROUTE .COMPLEX Qty: 100 11RF Dose Instruction: USE TO TEST BLOOD SUGAR FOUR TIMES A DAY Rx Instructions: USE TO TEST BLOOD SUGAR FOUR TIMES A DAY fluoxetine [Prozac] 40 mg capsule 40 mg PO DAILY Rexulti 2 mg tablet 2 mg PO BEDTIME trazodone 100 mg tablet 200 mg PO BEDTIME anita-lanta 30mg/7.5ml 7.5 ml PO Q6H PRN (Reason: Indigestion) Patient Comments: Anita-Lanta [phone] Referrals: Nikki Naik, SUAD [Primary Care Provider, Internal Medicine] Print Language: Maori
[2025-08-10 20:04] LABS: MANUAL DIFF FLAG NO
[2025-08-10 20:05] LABS: Hematocrit 32.5 % (42.0-52.0); Hemoglobin 10.8 g/dl (14.0-18.0); Imm Gran Abs Auto 0.01 X10*3/uL (0.00-0.03); Imm Gran Pct Auto 0.1 % (0.0-0.4); Lymphocytes Absolute Auto 3.0 X10*3/uL (1.2-4.9); Mean Corpuscular HGB Conc 33.2 g/dl (31.0-36.0); Mean Corpuscular Hemoglobin 29.5 pg (27.0-33.0); Mean Corpuscular Volume 88.8 fL (80.0-98.0); NRBC Abs Auto 0.000 X10*3/uL (0.0-0.012); NRBC Pct Auto 0.0 /100WBC (0.0-0.2); Platelet Count 217 X10*3/uL (160-400); Red Blood Count 3.66 X10*6/uL (4.60-5.80); White Blood Count 8.7 X10*3/uL (4.8-10.8)
[2025-08-10 20:13] LABS: INTERNATIONAL NORM RATIO 1.2 (0.9-1.1); Prothrombin Time 14.7 SEC (11.2-13.5)
[2025-08-10 20:21] LABS: Alanine Aminotransferase 12 U/L (0-40); Albumin Level 4.1 g/dL (3.5-5.0); Alkaline Phosphatase 71 U/L (39-117); Anion Gap 13 (12-20); Aspartate Amino Transferase 21 U/L (5-37); Blood Urea Nitrogen 36 mg/dL (9-16); Calcium 8.7 mg/dL (8.4-10.2); Carbon Dioxide 22 mmol/L (22-29); Chloride 111 mmol/L (96-108); Creatinine Clr Calc Pharmacy 38.0; Estimated Glomerular Filt Rate 40; Potassium 4.3 mmol/L (3.3-5.1); Sodium 142 mmol/L (135-145); Total Protein 6.9 g/dL (6.5-8.0)
--- NOTE | 2025-08-10 20:42 | PHA.MEDREC ---
Pharmacy Consult ? Medication Reconciliation Pharmacy has completed the medication reconciliation. Utilized list from facility.
[2025-08-10 21:47] LABS: Troponin-I High Sensitivity 3.7 ng/L (<3.5-35.0)
[2025-08-10 21:49] LABS: Troponin-I High Sensitivity 3.6 ng/L (<3.5-35.0)
[2025-08-10 21:59] LABS: Glucose, Whole Blood 57 mg/dL (60-115)
[2025-08-10 22:29] VITALS: BP 131/78; PULSE 60; RESP 16; TEMP 36.7; O2SAT 99
== END 2025-08-10 22:29 | disposition other institution (70) ==
PROVIDERS: Emergency Medicine Emergency Medical Services; Emergency Provider Emergency Medicine; PCP Nurse Practitioner Family
DX: R55 Syncope and collapse (principal); M25.511 Pain in right shoulder; M54.2 Cervicalgia; R07.89 Other chest pain; R51.9 Headache, unspecified; M54.50 Low back pain, unspecified; Z86.718 Personal history of other venous thrombosis and embolism; Z79.01 Long term (current) use of anticoagulants; Z79.899 Other long term (current) drug therapy
CPT/HCPCS: 36415; 70450; 71045; 71250; 72125; 73030; 80048; 80076; 81001; 82947; 84484; 85025; 85610; 93005; 96360; 96361; 96374; 96375; 99285; J1171

== ENCOUNTER → 2025-08-10 18:37 | Outpatient (BNV) | payer OTHER, SELFPAY | PROVIDERS: Emergency Provider Emergency Medicine; PCP Nurse Practitioner Family; Visit Provider Internal Medicine Cardiovascular Disease | DX: R55 Syncope and collapse (principal) | CPT/HCPCS: 93010 ==

== ENCOUNTER → 2025-08-10 19:06 | Outpatient (BNV) | payer OTHER, SELFPAY | PROVIDERS: Emergency Provider Emergency Medicine Emergency Medical Services; PCP Nurse Practitioner Family; Visit Provider Radiology Diagnostic Radiology | DX: Z04.3 Encounter for examination and observation following other accident (principal); R55 Syncope and collapse; M25.512 Pain in left shoulder; R07.9 Chest pain, unspecified | CPT/HCPCS: 70450; 71045; 71250; 72125; 73030 ==

== ENCOUNTER 2025-08-13 13:08 | Outpatient (AMB) | payer OTHER, SELFPAY ==
--- NOTE | 2025-08-13 13:13 | A.OFFPC_ITS ---
Vital Signs 08/13/25 13:43 Height 5 ft 5 in Weight 170 lb 8 oz BMI 28.4 BP 117/56 L Blood Pressure Location Lt brachial Position Sitting Respiration 16 Pulse 59 Pulse Source Pulse Oximeter Temp 98.0 F Temp Source Oral Pulse Oximetry (%) 98 Oxygen Delivery Method Room Air Intake Visit Reasons: impaired with marijuana , intoxicated Intake Note: patient here for ED discharge follow up/ impaired with marijuana and intoxicated Used Building Materials Yard Worker Required: Yes Used Building Materials Yard Worker Language: Small Machine Bindery Operator Name: pt refused w/worker Information Interpreted: non-clinical & clinical Allergies amlodipine (From [facility]) Allergy (Severe, Verified 08/13/25 13:34) due to poor renal function ibuprofen Allergy (Severe, Verified 08/13/25 13:34) 2/2 renal function Medication List - Last Reconciled 08/13/25 by Nikki Naik CNP acetaminophen (Tylenol) 650 mg (2 x 325 mg) PO Q6H PRN 30 days albuterol sulfate 90 mcg/actuation 2 puffs inhalation Q6H PRN MDD 8 apixaban (Eliquis) 5 mg PO BID ascorbic acid (vitamin C) 500 mg PO BID 3 months aspirin 81 mg PO DAILY atorvastatin 80 mg PO BEDTIME 90 days blood sugar diagnostic (FreeStyle Lite Strips) USE TO TEST BLOOD SUGAR FOUR MARY ES A DAY blood-glucose meter (FreeStyle Lite Meter kit) As directed brexpiprazole (Rexulti) 2 mg PO BEDTIME cholecalciferol (vitamin D3) 25 mcg PO DAILY 90 days dextromethorphan-guaifenesin 30-600 mg (Mucinex DM) 1 tab PO Q12H PRN dulaglutide (Trulicity) 3 mg subcut FR empagliflozin (Jardiance) 10 mg PO DAILY fluoxetine (Prozac) 40 mg PO DAILY [reagan-lanta 30mg/7.5ml 7.5 mL PO Q6H PRN] glucose 15 grams PO Q15M PRN hydralazine 50 mg See Protocol PO TID 90 days hydrocortisone 1% 1 appl topical TID PRN insulin degludec (Tresiba FlexTouch U-200 insulin) 48 units subcut DAILY lactulose (Enulose) 20 grams PO DAILY lancets (Easy Touch Safety Lancets) USE 2-3 TIMES A DAY DIRECTED FOR BLOOD GLUCOSE MONITORING lidocaine 5% 1 patch topical DAILY PRN lorazepam (Ativan) 0.5 mg PO DAILY PRN losartan 75 mg (1.5 x 50 mg) PO BID metoprolol succinate ER 25 mg PO BEDTIME 28 days miscellaneous medical supply R AFO, Daily As directed, 999 days. Disp #1 multivitamin,tx-minerals (Multi-Vitamin HP/Minerals capsule) 1 cap PO DAILY nifedipine ER (Procardia XL) 30 mg PO DAILY 90 days polyethylene glycol 3350 17 grams PO BID sennosides (senna) 8.6 mg PO BID tamsulosin (Flomax) 0.4 mg PO BEDTIME 90 days tramadol 50 mg PO Q8H PRN trazodone 200 mg PO BEDTIME ursodiol 300 mg PO BID Tobacco use date assessed: 08/13/25 Dental Screening Dental Screen Date: 08/13/25 Did you have a dental visit in the last 12 months?: Yes Did you have a dental problem in the last 6 months where you did not have access to dental care?: No Was dental information given to patient?: Patient has dentist HPI HPI Comments History of Present Illness Details 64-year-old male presents for ED follow- up visit. He is mostly Tajik speaking. He is accompanied by fpc staff. On 07/14/2025, he was evaluated at [facility] for concerns with excessive alcohol and cannabis use. U tox was positive for cannabis. Workup was unremarkable. On 08/09/2025, he was evaluated at [facility] for left upper back and lower back pain and acute left shoulder and left arm pain. Workup was unrevealing. He was discharged to the fpc on lidocaine patch and a short course of tramadol. On 08/10/2025, he was evaluated at [facility] for syncopal episode. Workup was unrevealing. Today's office visit: He continues to reports intermittent left shoulder/arm pain to his left upper back. The pain makes it difficulty for him to get out of bed using his arms. He describes the pain as throbbing sensation. He has been taking Tramadol and applying lidocaine patch without relief. He has been receiving home physical therapy which he started 3 times a week and now once weekly. He does not find physical therapy helpful. Patient is mostly Tajik speaking. Interpretation by fpc staff per patient's preference. [facility] Medical History Skin lesion Squamous cell carcinoma of skin Encephalopathy Cerebrovascular accident Hypoglycemia unawareness associated with type 2 diabetes mellitus Diabetes type 2, uncontrolled Type 2 diabetes mellitus with diabetic polyneuropathy Essential hypertension Epigastric pain Skin cancer Postoperative bleeding from incision Skin lesion Stroke Type 2 diabetes mellitus with chronic kidney disease Chronic kidney disease, stage 3 Aphagia Unsteady gait Anemia Hypertensive chronic kidney disease with stage 1 through stage 4 chronic kidney disease, or unspecified chronic kidney disease CKD (chronic kidney disease) Hearing loss Preglaucoma Vascular device, implant, or graft complication Bronchitis HTN (hypertension) Hyperlipidemia Hyperlipidemia Vitamin D deficiency Vitamin D deficiency Constipation GERD (gastroesophageal reflux disease) Diabetes Hemiplegia Surgical History History of removal of cyst (~02/09/22) Hx of cataract surgery History of surgical removal of skin lesion History of exploratory laparotomy Family History Father Myocardial infarction Mother Throat cancer Diabetes Family/Other FH: mental illness Brother In good health Sister In good health Sister In good health Daughter In good health Social History 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 Household Members Other:: fpc Housing: House Do you presently have visiting nurse or other home services: Yes Alcohol intake: current Alcohol intake frequency: does not drink Patient Tobacco Use Status: Former Tobacco user Tobacco use type: Cigarette Cigarette Packs Per Day: 2 Cigarettes Per Day: 40.0 Years Smoked: 16 e-Cigarette/Vaping Use: Never Used Second Hand Smoke Exposure: No Substance Use Type: Marijuana Advance Directives Date on File: 07/04/24 service: No Current occupational status: disabled Current occupational exposures/hazards: No Cognitive needs: Yes (walker) Hearing needs: No Vision needs: No Questionnaire Thrive Questionnaire Date Thrive assessed: 11/13/24 I am a: Patient What is your living situation today?: I have a steady place to live Within the past 12 months, did the food you bought not last and you didn't have the money to get more?: Never true Within the past 12 months, did you worry whether your food would run out before you got money to buy more?: Never true Do you have trouble paying for medicines?: No Do you have trouble getting transportation to medical appointments?: No Do you have trouble paying your heating and electricity bill?: No Do you have trouble taking care of your child, family member or friend?: Yes Do you have trouble with day-to-day activities such as bathing, preparing meals, shopping, managing finances, etc.?: No Are you currently unemployed and looking for a job?: No Are you interested in more education?: No Please select the resources that you would like help with: None Currently or been in a relationship where the following occur: No concerns repo rted THRIVE Score: 0 PARRISH-7 AMB Questionnaire PARRISH-7 Date PARRISH - 7 assessed: 12/08/24 Source: Developed by Drs. Amari Ortega, Chaparrita Mg, Domingo Cummings and colleagues, with an educational anthony from [employer]. Review of Systems Const Details: Const Denies chills, Denies fatigue, Denies fever(s), Denies headache(s) and Denies weakness ENT Denies dizziness and Denies headache(s) Card Denies chest pain, Denies lightheadedness, Denies dyspnea and Denies other (Palpitations) Resp Denies cough, Denies dyspnea, Denies wheezing and Denies other ( shortness of breath) GI Denies abdominal pain, Denies melena, Denies hematochezia, Denies change in bowel habits, Denies dyspepsia and Denies nausea Denies hematuria and Denies dysuria Musc Denies abnormal gait, Denies myalgias, Denies arthralgias, Denies numbness and Denies tingling Skin/Breast Denies rash, Denies unusual bruising and Denies wounds Neuro Denies abnormal gait, Denies dizziness, Denies headache(s), Denies memory loss, Denies numbness, Denies Sensory deficit (Neuro), Denies tingling and Denies weakness Psych Denies anxiety, Denies depression, Denies memory loss Endo Denies cold intolerance, Denies fatigue, Denies heat intolerance, Denies polydipsia and Denies polyuria Aller/Immun Denies wheezing Physical exam (Primary Care) Tobacco/Smoking Status: Tobacco use Status Tobacco use date assessed 08/13/25 08/13/25 13:33 Patient Tobacco Use Status Former Tobacco user 08/13/25 13:16 Tobacco use type Cigarette 08/13/25 13:16 e-Cigarette/Vaping Use Never Used 08/13/25 13:16 Thrive Assessment: Date of Thrive Assessment Date Thrive assessed 11/13/24 08/13/25 13:16 Currently or been in a relationship where the following occur: No concerns reported Const Other: General: no acute distress and well developed Nutritional Appearance: well nourished Orientation/consciousness: patient oriented x3 [facility] Head: Yes normocephalic and Yes atraumatic Eyes General: appearance normal, both eyes and all related structures Pupils: Equal, round and reactive pupils present EOM: EOMs intact bilaterally Resp Effort & Inspection: normal respiratory effort Auscultation: clear to auscultation bilaterally Cardio Rate: regular rate Rhythm: regular rhythm Heart sounds: S1 normal heart sound present, S2 normal heart sound present, no gallops, no murmurs and no rubs Musc Limited ROM of the left shoulder, tender with movements, no overt injury trauma noted to left arm or upper back Skin General: warm and dry. Normal skin color. Normal skin turgor Neuro General: patient oriented x3, gait normal and no focal neuro deficit Cranial nerves: Yes Equal, round and reactive pupils present Cognition (Neuro): normal cognition Gait exam (Neuro): Normal gait present Sensory Exam: No Sensory deficit (Neuro) Psych Appearance: grossly normal Affect: normal affect Attitude: cooperative Thought process: Normal thought process present Coding Level of Care Code Est Pt Level 4 (08869) Diagnoses Left arm pain M79.602 Left shoulder pain M25.512 Back pain M54.9 Assessment & Plan Assessment & Plan (1) Left arm pain: Code(s): M79.602 - Pain in left arm Category: Medical Plan: Limited ROM of the left shoulder, tender with movements, no overt injury trauma noted to left arm or upper back. Cyclobenzaprine 5 mg twice daily as needed ordered; advised to take as prescribed. Instructed on the risks, benefits, and potential adverse reactions of the medication. Continue current treatment regimen. Continue weekly PT. Follow-up with worsening or new symptoms. Verbalized understanding and agreed with the plan. (2) Left shoulder pain: Code(s): M25.512 - Pain in left shoulder Category: Medical Plan: Plan as above. (3) Back pain: Code(s): M54.9 - Dorsalgia, unspecified Category: Medical Plan: Plan as above. Medications: New cyclobenzaprine 5 mg PO BID PRN 20 tabs 0RF muscle spasm
[2025-08-13 13:43] VITALS: BP 117/56; PULSE 59; RESP 16; TEMP 36.7; O2SAT 98; BMI 28.4
--- OUTSIDE RECORDS SUMMARY | 2025-08-13 15:18 | XMS_ITS | Encounter Summary ---
Author Organization [facility] Address [address] [facility] 200 [place] [address] Phone Care Team Providers Care Directional Bore Operator Name Role Phone Brit Smallwood PUBLIC RELATIONS INTERN Primary Care Provider [phone] Reason for Visit * Reason Comments Med Refill Encounter Details Date Type Department Care Team (Late st Contact Info) Description 08/01/2025 Refill [facility] [address] [facility] 200 [place] [phone] Antonio Carter MD [address] [facility] 204 [place] [phone] Social History Tobacco Use Types Packs/Day Years [...] on filedocumented in this encounter Care Teams Directional Bore Operator Relationship Specialty Start Date End Date Brit Smallwood NP [address] [place] [address] [phone] PCP - General Nurse Practitioner 02/13/21 documented as of this encounter
--- OUTSIDE RECORDS SUMMARY | 2025-08-13 15:18 | XMS_ITS | Encounter Summary ---
Author Organization [facility] Address 100 [facility] 200 [place] [address] Phone Care Team Providers Care Sewer And Inspector Name Role Phone Brit Smallwood BEEF SKINNER Primary Care Provider [phone] Reason for Visit * Reason Comments Med Refill Encounter Details Date Type Department Care Team (Late st Contact Info) Description 12/09/2023 Refill [facility] [address] [facility] 200 [place] [phone] Antonio Carter MD [address] [facility] [address] [place] [phone] Social History Tobacco Use Types Packs/Day Years [...] on filedocumented in this encounter Care Teams Sewer And Inspector Relationship Specialty Start Date End Date Brit Smallwood NP [address] [place] [address] [phone] PCP - General Nurse Practitioner 02/13/21 documented as of this encounter
--- OUTSIDE RECORDS SUMMARY | 2025-08-13 15:19 | XMS_ITS | Encounter Summary ---
Author Organization [facility] Address [address] [address] Phone Care Team Providers Care Retail Customer Service Specialist Name Role Phone Brit Smallwood FLIGHT ATTENDANT/INFLIGHT MANAGER Primary Care Provider [phone]- [phone] Reason for Visit * Reason Comments Med Refill Encounter Details Date Type Department Care Team ([facility] st Contact Info) Description 12/07/2024 Refill [facility] [address] [address] Ermias Sandoval MD [address] [address] Social History Tobacco Use [...] on filedocumented in this encounter Care Teams Retail Customer Service Specialist Relationship Specialty Start Date End Date Brit Smallwood NP [facility] [place], [place] [phone] PCP - General Nurse Practitioner 02/13/21 documented as of this encounter
--- OUTSIDE RECORDS SUMMARY | 2025-08-13 15:19 | XMS_ITS | Clinical Summary ---
Author Organization [facility] Address [address] [facility] [place] [address] Phone Care Team Providers Care Crayon Sawyer Name Role Phone Brit Smallwood NP Primary Care Provider [phone]- [phone] Allergies Active Allergy Reactions Criticality Noted Date [...] [place] [address] [place] [address] [place] [address] Antonio Carter MD 08/01/2025 Refill [facility] [address] [place] [address] [place] [phone] Antonio Carter MD 07/03/2025 Refill [facility] [address] [place] [address] [place] [address] Antonio Carter MD 06/07/2025 Refill [facility] [address] [facility] [address] [place] [address] Lazaro Valadez MD 05/17/2025 Refill [facility] 35[address] [facility] [address] [place] [address] Lazaro Valadez MD from Last 3 Months [...] this topic Insurance Medicaid Medicaid Care Teams Crayon Sawyer Relationship Specialty Start Date End Date Brit Smallwood NP [address] [place] [address] [phone] PCP - General Nurse Practitioner 02/13/21
--- OUTSIDE RECORDS SUMMARY | 2025-08-13 15:19 | XMS_ITS | Encounter Summary ---
Author Organization [facility] Address [address] [address] Phone Care Team Providers Care High Raw Sugar Boiler Name Role Phone Brit Smallwood DRAWBRIDGE OPERATOR Primary Care Provider [phone]- [phone] Reason for Visit * Reason Comments Med Refill Encounter Details Date Type Department Care Team ([facility] st Contact Info) Description 11/30/2024 Refill [facility] [address] [phone] Ermias Sandoval MD [address] [phone] Social History Tobacco Use Types [...] on filedocumented in this encounter Care Teams High Raw Sugar Boiler Relationship Specialty Start Date End Date Brit Smallwood NP [facility] [place], [place] [phone] PCP - General Nurse Practitioner 02/13/21 documented as of this encounter
--- OUTSIDE RECORDS SUMMARY | 2025-08-13 15:19 | XMS_ITS | Encounter Summary ---
Author Organization [facility] Address [address] [facility] 200 [place] [address] Phone Care Team Providers Care Bottom Turner Name Role Phone Brit Smallwood PROGRAMMER ANALYST CONSULTANT Primary Care Provider [phone]- [phone] Reason for Visit * Reason Comments Med Refill Encounter Details Date Type Department Care Team (Late st Contact Info) Description 08/09/2025 Refill [facility] [address] [facility] 200 [place] [phone] Antonio Carter MD [address] [facility] [address] [place] [phone] Social History Tobacco Use Types Packs/Day Years [...] on filedocumented in this encounter Care Teams Bottom Turner Relationship Specialty Start Date End Date Brit Smallwood NP [address] [place] [address] [phone] PCP - General Nurse Practitioner 02/13/21 documented as of this encounter
--- OUTSIDE RECORDS SUMMARY | 2025-08-13 15:19 | XMS_ITS | Encounter Summary ---
Author Organization [facility] Address [address] [address] Phone Care Team Providers Care Prep Room Supervisor Name Role Phone Brit Smallwood FUEL CELL BUILDER Primary Care Provider [phone]- [phone] Reason for Visit * Reason Comments Med Refill Encounter Details Date Type Department Care Team ([facility] st Contact Info) Description 11/01/2024 Refill [facility] [address] [phone] Ermias Sandoval MD [address] [phone] Social History Tobacco Use [...] on filedocumented in this encounter Care Teams Prep Room Supervisor Relationship Specialty Start Date End Date Brit Smallwood NP [facility] [place], [place] [phone] PCP - General Nurse Practitioner 02/13/21 documented as of this encounter
--- OUTSIDE RECORDS SUMMARY | 2025-08-13 15:19 | XMS_ITS | Encounter Summary ---
Author Organization [facility] Address [address] [address] Phone Care Team Providers Care Collateral Analyst Name Role Phone Brit Smallwood SWEAT BAND SEWER Primary Care Provider [phone]- [phone] Reason for Visit * Reason Comments Med Refill Encounter Details Date Type Department Care Team ([facility] st Contact Info) Description 11/07/2024 Refill [facility] [address] [phone] Ermias Sandoval MD [address] [phone] Social History Tobacco Use [...] on filedocumented in this encounter Care Teams Collateral Analyst Relationship Specialty Start Date End Date Brit Smallwood NP [facility] [place], [place] [phone] PCP - General Nurse Practitioner 02/13/21 documented as of this encounter
--- OUTSIDE RECORDS SUMMARY | 2025-08-13 15:19 | XMS_ITS | Clinical Summary ---
Author Organization [address] [facility] Address 175 [place] [address] Phone Care Team Providers Care Appliance Repair Technician Name Role Phone Nikki Naik EMERGENCY RESPONSE OFFICER Primary Care Provider [phone] Allergies No known active allergies Medications ketoconazole (NIZORAL) 2 % cream Apply topically 1 (one) time each day. Apply topical in the morning time to the bottoms of the feet bilaterally 60 g 2 Active Encounters Date Type Department Care Team Description 07/10/2025 2:00 PM EDT Office Visit Orthopedic Surgery [facility] [address] [facility] [address] [place] [phone] Mao Evans DPM Controlled type 2 [...] ([facility] st Contact Info) Description 10/10/2025 1:30 PM EST Office Visit Orthopedic Surgery - [place] 250 175 [facility] 250 [place] [phone] Mao Evans, ETHAN [address] [facility] 250 [place] [address] Health Maintenance Due Date Last Done Comments [...] to complete this topic Insurance [facility] Care Teams Appliance Repair Technician Relationship Specialty Start Date End Date Nikki Naik FNP [address] [place] [address] PCP - General Family Medicine 09/14/24
--- OUTSIDE RECORDS SUMMARY | 2025-08-13 15:19 | XMS_ITS | Encounter Summary ---
Author Organization [facility] Address 100 [facility] 200 [place] [address] Phone Care Team Providers Care Sports Broadcasting Internship Name Role Phone Brit Smallwood NATIVIDAD Primary Care Provider [phone] Reason for Visit * Reason Comments Med Refill Encounter Details Date Type Department Care Team (Late st Contact Info) Description 12/02/2023 Refill [facility] [address] [facility] 200 [place] [phone] Antonio Carter MD [address] [facility] 204 [place] [phone] Social History Tobacco Use Types Packs/Day Years [...] EST With the assistance of Radha speaking Pashto a call was placed to the patient regarding a medication refill request. The patients meat smoker was informed that in order to refill medications the patient needs a follow up visit. The patient states he will decide if he would like to continue at [facility] or follow his previous Semiconductor Lab Technician. He will contact the office with his decision. A 30 day refillis available to the patient. documented in this encounter Plan of Treatment Not on file documented as of this encounter Visit Diagnoses Not on filedocumented in this encounter Care Teams Sports Broadcasting Internship Relationship Specialty Start Date End Date Brit Smallwood NP [address] [place] [phone] PCP - General Nurse Practitioner 02/13/21 documented as of this encounter
== END 2025-08-13 13:56 | disposition home or self-care (01) ==
LOC: HO.HMCFM 13:09
PROVIDERS: Visit Provider Nurse Practitioner Family
DX: M79.602 Pain in left arm (principal); M25.512 Pain in left shoulder; M54.9 Dorsalgia, unspecified

== ENCOUNTER → 2025-08-13 13:08 | Outpatient (BNVA) | payer OTHER, SELFPAY | PROVIDERS: Visit Provider Nurse Practitioner Family | DX: M25.512 Pain in left shoulder (principal); M79.602 Pain in left arm; M54.9 Dorsalgia, unspecified | CPT/HCPCS: 99212 ==

== ENCOUNTER 2025-09-20 11:05 | Outpatient (AMB) | payer OTHER, SELFPAY ==
--- NOTE | 2025-09-20 11:16 | HO.NEPHOV_ITS ---
Vital Signs 09/20/25 11:17 Height 5 ft 5 in Weight 172 lb BMI 28.6 BP 142/60 H Blood Pressure Location Rt brachial Position Sitting Pulse 58 Pulse Source Pulse Oximeter Pulse Oximetry (%) 97 Oxygen Delivery Method Room Air Intake Visit Reasons: 4 MO FU Assistant Sales Center Manager Required: No Assistant Sales Center Manager Services: Assistant Sales Center Manager Offered & Declined (Staff worker can translate) Accompanied by: Staff Allergies amlodipine (From [facility]) Allergy (Severe, Verified 09/20/25 11:20) due to poor renal function ibuprofen Allergy (Severe, Verified 09/20/25 11:20) 2/2 renal function HPI Comments Details: Middle aged man with a history of CKD and hypertension. Here for follow-up. Today he has no specific complaints today. Accompanied by caregiver. Assistant Sales Center Manager service was used 05/24/25 The patient is a 64-year-old male presenting for a follow-up on kidney function and blood sugar management. Kidney function has improved to 37% and remains stable. Current management will continue without changes. Blood sugar levels show occasional morning lows but are generally stable. No adjustments to the regimen are necessary at this time. DIAGNOSTIC RESULTS: - Kidney function: 37% improvement [facility] Medical History Skin lesion Squamous cell carcinoma of skin Encephalopathy Cerebrovascular accident Hypoglycemia unawareness associated with type 2 diabetes mellitus Diabetes type 2, uncontrolled Type 2 diabetes mellitus with diabetic polyneuropathy Essential hypertension Epigastric pain Skin cancer Postoperative bleeding from incision Skin lesion Stroke Type 2 diabetes mellitus with chronic kidney disease Chronic kidney disease, stage 3 Aphagia Unsteady gait Anemia Hypertensive chronic kidney disease with stage 1 through stage 4 chronic kidney disease, or unspecified chronic kidney disease CKD (chronic kidney disease) Hearing loss Preglaucoma Vascular device, implant, or graft complication Bronchitis HTN (hypertension) Hyperlipidemia Hyperlipidemia Vitamin D deficiency Vitamin D deficiency Constipation GERD (gastroesophageal reflux disease) Diabetes Hemiplegia Surgical History History of removal of cyst (~02/09/22) Hx of cataract surgery History of surgical removal of skin lesion History of exploratory laparotomy Family History Father Myocardial infarction Mother Throat cancer Diabetes Family/Other FH: mental illness Brother In good health Sister In good health Sister In good health Daughter In good health Social History 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 Household Members Other:: halfway Housing: House Do you presently have visiting nurse or other home services: Yes Alcohol intake: current Alcohol intake frequency: does not drink Patient Tobacco Use Status: Former Tobacco user Tobacco use type: Cigarette Cigarette Packs Per Day: 2 Cigarettes Per Day: 40.0 Years Smoked: 16 e-Cigarette/Vaping Use: Never Used Second Hand Smoke Exposure: No Substance Use Type: Marijuana Advance Directives Date on File: 07/04/24 service: No Current occupational status: disabled Current occupational exposures/hazards: No Cognitive needs: Yes (walker) Hearing needs: No Vision needs: No Physical Exam Exam Exam: Physical Exam General: Awake. Comfortable. HENT: Neck supple. Mucosa moist. Pulmonary: Lungs aeration equal. No rales. Cardiology: Heart S1-S2 heard. No gallop. Abdomen: Soft. Non tender. Bowel sounds normal. Neurologic: No involuntary movements. No myoclonus. Extremities: No edema. No rash. Vital Signs: Last Vital Signs Pulse 58 09/20/25 11:17 BP 142/60 H 09/20/25 11:17 Pulse Ox 97 09/20/25 11:17 Oxygen Delivery Method Room Air 09/20/25 11:17 BMI result Body Mass Index 28.6 Results Reviewed Nephrology Results: Hgb, (14.0-18.0) 10.8 g/dl L 08/10/25 WBC, (4.8-10.8) 8.7 X10*3/uL 08/10/25 Plt Count, (160-400) 217 X10*3/uL 08/10/25 Sodium, (135-145) 142 mmol/L 08/10/25 Potassium, (3.3-5.1) 4.3 mmol/L 08/10/25 Chloride, (96-108) 111 mmol/L H 08/10/25 Carbon Dioxide, (22-29) 22 mmol/L 08/10/25 BUN, (9-16) 36 mg/dL H 08/10/25 Creatinine, (0.5-1.4) 1.75 mg/dL H 08/10/25 Calcium, (8.4-10.2) 8.7 mg/dL Δ 08/10/25 Urine Protein, (Neg-Trace) 30 (1+) mg/dL H 08/10/25 Assessment & Plan Assessment & Plan (1) Chronic kidney disease, stage 3: Code(s): N18.30 - Chronic kidney disease, stage 3 unspecified Category: Medical Qualifiers: Chronic kidney disease stage 3 subtype: stage 3a (GFR 45-59) Qualified Code(s): N18.31 - Chronic kidney disease, stage 3a (2) HTN (hypertension): Code(s): I10 - Essential (primary) hypertension Category: Medical Qualifiers: Hypertension type: essential hypertension Qualified Code(s): I10 - Essential (primary) hypertension Plan Plan 1. Chronic Kidney Disease Stage III - The patient's kidney function has improved since the last evaluation. - He is on appropriate medications. - No changes will be made to the current management. - Follow-up is scheduled in six months. 2. Low Back Pain - The patient's reported back pain is likely musculoskeletal in origin and not related to his kidneys, as there is no tenderness over the kidney area on examination. - The patient was reassured that the pain is not renal in nature. 3. Hypertension - The patient's hypertension is considered stable on his current medication regimen. - Continue current medications without change and follow up in six months. Orders: Orders Complete Blood Count no Diff 6 Months I10 - Essential (primary) hypertension, N18.31 - Chronic kidney disease, stage 3a Basic Metabolic Panel 6 Months I10 - Essential (primary) hypertension, N18.31 - Chronic kidney disease, stage 3a Coding Level of Care Code Est Pt Level 4 (07206) Diagnoses Stage 3a chronic kidney disease N18.31 Chronic kidney disease stage 3 subtype: stage 3a (GFR 45-59) Essential hypertension I10 Hypertension type: essential hypertension
[2025-09-20 11:17] VITALS: BP 142/60; PULSE 58; O2SAT 97; BMI 28.6
--- OUTSIDE RECORDS SUMMARY | 2025-09-20 14:29 | XMS_ITS | Encounter Summary ---
Author Organization [facility] Address [address] [address] Phone Care Team Providers Care Casket Upholsterer Name Role Phone Brit Smallwood MANAGER ICU Primary Care Provider [phone]- [phone] Reason for Visit * Reason Comments Med Refill Encounter Details Date Type Department Care Team ([facility] st Contact Info) Description 12/07/2024 Refill [facility] [address] [address] Ermias Sandoval MD [address] [address] Social History Tobacco Use Types [...] on filedocumented in this encounter Care Teams Casket Upholsterer Relationship Specialty Start Date End Date Brit Smallwood NP [facility] [place], [place] [id number] PCP - General Nurse Practitioner 02/13/21 documented as of this encounter
--- OUTSIDE RECORDS SUMMARY | 2025-09-20 14:29 | XMS_ITS | Encounter Summary ---
Author Organization [facility] Address 100 [facility] [address] [place] [address] Phone Care Team Providers Care Credentialing Specialist Name Role Phone Brit Smallwood RESTAURANT SERVER Primary Care Provider [phone]- [phone] Reason for Visit * Reason Comments Med Refill Encounter Details Date Type Department Care Team (Late st Contact Info) Description 12/09/2023 Refill [facility] 100 [facility] [address] [place] [phone] Antonio Carter MD [address]50 [facility] [address] [place] [phone] Social History Tobacco Use Types Packs/Day Years [...] on filedocumented in this encounter Care Teams Credentialing Specialist Relationship Specialty Start Date End Date Brit Smallwood NP [address] [place] [id number] PCP - General Nurse Practitioner 02/13/21 documented as of this encounter
--- OUTSIDE RECORDS SUMMARY | 2025-09-20 14:29 | XMS_ITS | Encounter Summary ---
Author Organization [facility] Address [address] [address] Phone Care Team Providers Care Script Reader Name Role Phone Brit Smallwood CRITICAL CARE EDUCATOR Primary Care Provider [phone]- [phone] Reason for Visit * Reason Comments Med Refill Encounter Details Date Type Department Care Team ([facility] st Contact Info) Description 11/30/2024 Refill [facility] [address] [phone] Ermias Sandoval MD [address] [address] Social History Tobacco Use [...] on filedocumented in this encounter Care Teams Script Reader Relationship Specialty Start Date End Date Brit Smallwood NP [facility] [place], [place] [phone] PCP - General Nurse Practitioner 02/13/21 documented as of this encounter
--- OUTSIDE RECORDS SUMMARY | 2025-09-20 14:30 | XMS_ITS | Encounter Summary ---
Author Organization [facility] Address [address] [address] Phone Care Team Providers Care Industrial Hygiene Technician Name Role Phone Brit Smallwood CONCRETE GRINDER OPERATOR Primary Care Provider [phone]- [phone] Reason for Visit * Reason Comments Med Refill Encounter Details Date Type Department Care Team ([facility] st Contact Info) Description 11/07/2024 Refill [facility] [address] [address] Ermias Sandoval MD [address] [address] Social History Tobacco Use Types [...] on filedocumented in this encounter Care Teams Industrial Hygiene Technician Relationship Specialty Start Date End Date Brit Smallwood NP [facility] [place], [place] [phone] PCP - General Nurse Practitioner 02/13/21 documented as of this encounter
--- OUTSIDE RECORDS SUMMARY | 2025-09-20 14:30 | XMS_ITS | Encounter Summary ---
Author Organization [facility] Address 100 [facility] [address] [place] [address] Phone Care Team Providers Care Property Specialist Name Role Phone Brit Smallwood [place] Primary Care Provider [phone] Reason for Visit * Reason Comments Med Refill Encounter Details Date Type Department Care Team (Late st Contact Info) Description 12/02/2023 Refill [facility] 100 [facility] [address] [place] [phone] Antonio Carter MD [address] [facility] [address] [place] [phone] Social History Tobacco Use Types Packs/Day Years [...] regarding a medication refill request. The patients lapel padder was informed that in order to refill medications the patient needs a follow up visit. The patient states he will decide if he would like to continue at [facility] or follow his previous Gastrointestinal Technician. He will contact the office with his decision. A 30 day refillis available to the patient. documented in this encounter Plan of Treatment Not on file documented as of this encounter Visit Diagnoses Not on filedocumented in this encounter Care Teams Property Specialist Relationship Specialty Start Date End Date Brit Smallwood NP [address] [place] [id number] PCP - General Nurse Practitioner 02/13/21 documented as of this encounter
--- OUTSIDE RECORDS SUMMARY | 2025-09-20 14:30 | XMS_ITS | Clinical Summary ---
Author Organization [address] [facility] Address 175 [place] [address] Phone Care Team Providers Care Divisional Storekeeper Name Role Phone Nikki Naik PSYCH TECH Primary Care Provider [phone] Allergies No known active allergies Medications ketoconazole (NIZORAL) 2 % cream Apply topically 1 (one) time each day. Apply topical in the morning time to the bottoms of the feet bilaterally 60 g 2 Active Encounters Date Type Department Care Team Description 07/10/2025 2:00 PM EDT Office Visit Orthopedic Surgery [facility] [address] [facility] [address] [place] [phone] Mao Evans DPM Controlled type 2 [...] Upcoming Encounters Date Type Department Care Team ([facility] st Contact Info) Description 10/10/2025 1:30 PM EST Office Visit Orthopedic Surgery - [place] [address] [facility] 250 [place] [phone] Mao Evans, ETHAN 175 [facility] 250 [place] [address] Health Maintenance Due Date Last Done Comments [...] patient's age to complete this topic Insurance [facility] Care Teams Divisional Storekeeper Relationship Specialty Start Date End Date Nikki Naik FNP [address] [place] [address] PCP - General Family Medicine 09/14/24
--- OUTSIDE RECORDS SUMMARY | 2025-09-20 14:30 | XMS_ITS | Encounter Summary ---
Author Organization [facility] Address [address] [address] Phone Care Team Providers Care Shampoo Technician Name Role Phone Brit Smallwood ENGROSSER Primary Care Provider [phone] Reason for Visit * Reason Comments Med Refill Encounter Details Date Type Department Care Team ([facility] st Contact Info) Description 11/01/2024 Refill [facility] [address] [phone] Ermias Sandoval MD [address] [phone] Social History Tobacco Use Types [...] on filedocumented in this encounter Care Teams Shampoo Technician Relationship Specialty Start Date End Date Brit Smallwood NP [facility] [place], [place] [phone] PCP - General Nurse Practitioner 02/13/21 documented as of this encounter
--- OUTSIDE RECORDS SUMMARY | 2025-09-20 14:30 | XMS_ITS | Clinical Summary ---
Author Organization [facility] Address [address] [facility] [place] [address] Phone Care Team Providers Care Abstract Manager Name Role Phone Brit Smallwood NP Primary Care Provider [phone] Allergies Active Allergy Reactions Criticality Noted Date [...] Encounters Date Type Department Care Team Description 08/21/2025 Refill [facility] [address] [facility] 204 [place] [address] Ester Green 08/09/2025 Refill [facility] 100 [facility] 200 [place] [address] Antonio Carter MD 08/01/2025 Refill [facility] [address] [facility] [facility] [address] [place] [address] Antonio Carter MD 07/03/2025 Refill [facility] [address] [place] [address] Antonio Carter MD from Last 3 Months Social History [...] patient's age to complete this [place] [address] Medicaid [facility] Medicaid Care Teams Abstract Manager Relationship Specialty Start Date End Date Brit Smallwood NP [address] [place] [id number] PCP - General Nurse Practitioner 02/13/21
== END 2025-09-20 11:32 | disposition home or self-care (01) ==
LOC: HO.HKA 11:06
PROVIDERS: PCP Nurse Practitioner Family; Visit Provider Internal Medicine Hypertension Specialist
DX: N18.31 Chronic kidney disease, stage 3a (principal); I10 Essential (primary) hypertension
CPT/HCPCS: 99214

== ENCOUNTER → 2025-09-20 11:05 | Outpatient (BNVA) | payer OTHER, SELFPAY | PROVIDERS: PCP Nurse Practitioner Family; Visit Provider Internal Medicine Hypertension Specialist | DX: I12.9 Hypertensive chronic kidney disease with stage 1 through stage 4 chronic kidney disease, or unspecified chronic kidney disease (principal); N18.31 Chronic kidney disease, stage 3a; E11.22 Type 2 diabetes mellitus with diabetic chronic kidney disease; M54.50 Low back pain, unspecified; Z87.891 Personal history of nicotine dependence | CPT/HCPCS: 99212 ==